=== PATIENT | male | born 1955 ===

== ENCOUNTER 2021-01-26 16:52 | Emergency (ER) | payer OTHER, SELFPAY ==
[2021-01-26 17:39] VITALS: BP 180/81; PULSE 99; RESP 16; TEMP 36.4; O2SAT 99; BMI 37.8
--- NOTE | 2021-01-26 19:09 | ED.DENTAL ---
HPI - Dental/Oral General Chief complaint: Dental/Oral Stated complaint: tooth pain - abscess Time Seen by Provider: 01/26/21 18:50 History of Present Illness HPI Narrative: Patient complains of left-sided upper and lower dental pain, he was started on clindamycin today and said it made him feel like his throat was swelling, this feeling has resolved and he comes here to be recheck, he has no shortness of breath no feeling of swelling in his throat no rash and his only complaint is pain in the teeth but he is nervous to continue the clindamycin Related Data Previous Rx's Medication Instructions Recorded azithromycin [Zithromax Z-David] 250 mg PO DAILY 4 Days #4 tab 01/26/21 Allergies Allergy/AdvReac Type Severity Reaction Status Date / Time Penicillins Allergy Unknown Verified 01/26/21 17:45 Review of Systems Review of Systems: Dental pain and a resolved feeling of throat closing Review of systems there is no dizziness no weakness no feeling faint no fainting no headache no difficulty breathing or swallowing no throat swelling no nausea or vomiting no heart racing no skin rash Yes all other systems are reviewed and are negative [facility] Past Medical History Source: nursing notes reviewed Social History Social History Smoked in Last 30 Days: No Use of substances other than those prescribed or required for medical reasons: No Advance Directives: No Advance Directives Information Provided: Yes Physical Exam Vital Signs: Vital Signs: Last Vital Signs Temp 97.5 F 01/26/21 17:39 Pulse 99 01/26/21 17:39 Resp 16 01/26/21 17:39 BP 180/81 H 01/26/21 17:39 Pulse Ox 99 01/26/21 17:39 Body Mass Index 37.8 General appearance comfortable relax no acute distress exam the pharynx is clear without swelling, there is no impairment of breathing and swallowing, there is no drooling in the voice is normal, no trismus Dental exam there is no obvious fluctuant abscess, there is tender DKA on left lower and upper molars, there is no inflammation of the gums The neck is supple The chest is clear to auscultation bilaterally full symmetric equal breath sounds The heart rate and rhythm regular no murmur Extremities full range of motion x4 Skin no rashes Course Course Course Narrative: Because the patient's perception of throat closing or swelling with clindamycin we switched to Zithromax and observed for 45 minutes after with no better affect On arrival here he had no symptoms he never had any rash she never had any actual swelling and there is no sign of any allergic reaction on arrival or now Discharge Plan Discharge Clinical Impression: Dental caries Patient Disposition: Home, Self-Care Additional Instructions: We never saw any sign of allergic reaction here but as there is a chance you may have had a reaction to clindamycin we changed the antibiotic to Zithromax We kept an eye on you for some time after taking the 1st dose here and there was no sign of any allergic reaction Follow with dentist for your dental issues Return to the ER any time any worse condition or any concerns Prescriptions: New azithromycin [Zithromax Z-David] 250 mg tablet 250 mg PO DAILY 4 Days Qty: 4 RF: 0 Interventions: ED Discharge Assessment Last Done: 01/26/21 19:53 Discharge Date/Time: 01/26/21 19:46
[2021-01-26] MEDS: Azithromycin 500 MG TABLET PO (19:19)
== END 2021-01-26 19:46 | disposition home or self-care (01) ==
PROVIDERS: Emergency Provider Internal Medicine; PCP Hospitalist
DX: K02.9 Dental caries, unspecified (principal); Z79.899 Other long term (current) drug therapy
CPT/HCPCS: 99284

== ENCOUNTER 2021-04-21 11:00 | Outpatient (REF) | payer OTHER, SELFPAY ==
[2021-04-21 11:59] LABS: Blood Urea Nitrogen 13 mg/dL (9-16); Estimated Glomerular Filt Rate > 60
== END 2021-04-21 11:01 | disposition home or self-care (01) ==
LOC: HO.LAB 11:00
PROVIDERS: PCP Hospitalist; Visit Provider Psychiatry & Neurology Neurology
DX: G40.209 Localization-related (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, not intractable, without status epilepticus (principal); Q85.00 Neurofibromatosis, unspecified
CPT/HCPCS: 36415; 82565; 84520

== ENCOUNTER 2021-05-05 14:48 | Outpatient (REF) | payer OTHER, SELFPAY ==
--- NOTE | ~2021-05-05 | MR_ITS ---
EXAMINATION: MR BRAIN WITHOUT AND WITH CONTRAST CLINICAL INFORMATION: Complex partial seizure. Neurofibromatosis. COMPARISON: None available. TECHNIQUE: Multiplanar, multisequence imaging of the brain was performed before and after the intravenous administration of 10 mL of Gadavist. FINDINGS: There is no acute infarction, mass, hemorrhage, or extra-axial collection. No abnormal or unexpected intracranial enhancement is seen. Mild degree of brain parenchymal volume loss is seen at the ventricles and sulci are commensurate. Mild amount of nonspecific T2/FLAIR hyperintensity seen involving the periventricular and deep cerebral white matter. The bilateral hippocampi demonstrate normal size, signal, and morphology and appear symmetric. The temporal lobes demonstrate normal and symmetric signal. There is no martin matter heterotopia. No focal cortical dysplasia is seen. The flow voids of the major intracranial arteries appear intact. The bones and extracranial soft tissues are within normal limits. Several scattered subcutaneous nodules are seen within the scalp, presumably neurofibromas. Low T1 signal is seen within the C3 and C4 vertebral bodies. The remainder of the calvarial and skull base marrow signal appears normal. MR/MR head/brain wo/w con IMPRESSION: No mass, or enhancing lesion, or definite epileptogenic nidus identified. Mild nonspecific T2 hyperintensity seen in the cerebral white matter. No evidence of hippocampal sclerosis. No acute abnormality. Incidentally noted abnormal marrow signal in the C3 and C4 vertebral bodies of uncertain significance.
== END 2021-05-05 14:49 | disposition home or self-care (01) ==
LOC: HO.MRI 14:48
PROVIDERS: PCP Hospitalist; Visit Provider Psychiatry & Neurology Neurology
DX: G40.209 Localization-related (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, not intractable, without status epilepticus (principal); Q85.00 Neurofibromatosis, unspecified
CPT/HCPCS: 70553; A9585

== ENCOUNTER 2021-09-18 10:40 | Outpatient (REF) | payer OTHER, SELFPAY ==
[2021-09-18 11:25] LABS: Estimated Average Glucose 105 mg/dL; Hemoglobin A1c % 5.3 %
[2021-09-18 12:01] LABS: Alanine Aminotransferase 37 U/L (0-40); Albumin Level 4.2 g/dL (3.5-5.0); Alkaline Phosphatase 81 U/L (39-117); Anion Gap 13 (12-20); Aspartate Amino Transferase 38 U/L (5-37); Bilirubin Total 0.8 mg/dL (0.0-1.0); Blood Urea Nitrogen 11 mg/dL (9-16); Calcium 9.1 mg/dL (8.4-10.2); Carbon Dioxide 30 mmol/L (22-29); Chloride 105 mmol/L (96-108); Cholesterol 196 mg/dL; Estimated Glomerular Filt Rate > 60; Glucose Random 109 mg/dL (60-115); HDL Cholesterol 60 mg/dL; LDL Cholesterol Calculated 123 mg/dl; Potassium 4.2 mmol/L (3.3-5.1); Sodium 144 mmol/L (135-145); Total Protein 6.7 g/dL (6.5-8.0); Triglycerides 67 mg/dL
[2021-09-18 14:42] LABS: Creatinine Urine 232.83 mg/dL; Microalbum/Creatinine Ratio Ur 13.3 ug/mg cr
== END 2021-09-18 10:41 | disposition home or self-care (01) ==
LOC: HO.LAB 10:40
PROVIDERS: Visit Provider Hospitalist
DX: I10 Essential (primary) hypertension (principal); E11.8 Type 2 diabetes mellitus with unspecified complications
CPT/HCPCS: 36415; 80053; 80061; 82043; 83036

== ENCOUNTER → 2022-05-29 09:43 | Outpatient (BNVA) | payer OTHER, MEDICARE, MEDICAID, SELFPAY | PROVIDERS: PCP Internal Medicine; Visit Provider Urology | DX: N40.1 Benign prostatic hyperplasia with lower urinary tract symptoms (principal); N13.8 Other obstructive and reflux uropathy; R33.9 Retention of urine, unspecified; R39.12 Poor urinary stream | CPT/HCPCS: 51798 ==

== ENCOUNTER 2022-07-14 14:59 | Outpatient (REF) | payer MEDICARE, SELFPAY ==
--- NOTE | ~2022-07-14 | XR_ITS ---
EXAMINATION: XR ABDOMEN KUB CLINICAL INDICATION: Slow transit constipation COMPARISON: None TECHNIQUE: AP view of the abdomen. FINDINGS: Nonobstructive abdominal bowel gas pattern. Gas is seen within nondilated stomach, small bowel, and colon. No abnormal abdominal calcifications. Moderate volume stool is present. Degree in the right colon and rectum. Degenerative changes of the lumbar spine. XR/XR KUB IMPRESSION: Nonobstructed abdominal bowel gas pattern. Moderate stool burden.
== END 2022-07-14 15:00 | disposition home or self-care (01) ==
LOC: HO.XRAY 14:59
PROVIDERS: PCP Internal Medicine; Visit Provider Internal Medicine
DX: K59.01 Slow transit constipation (principal)
CPT/HCPCS: 74018

== ENCOUNTER → 2022-07-22 13:41 | Outpatient (BNVA) | payer MEDICARE, MEDICAID, SELFPAY | PROVIDERS: PCP Internal Medicine; Visit Provider Urology | DX: N40.1 Benign prostatic hyperplasia with lower urinary tract symptoms (principal); N13.8 Other obstructive and reflux uropathy | CPT/HCPCS: 52000; 99212 ==

== ENCOUNTER 2022-12-09 12:24 | Emergency (ER) | payer OTHER, MEDICAID, SELFPAY ==
[2022-12-09] VITALS (8 sets, daily range): BP systolic 91–140; BP diastolic 46–65; PULSE 66–83; RESP 16; TEMP 36.4–36.5; O2SAT 95–97; BMI 36.7
--- NOTE | ~2022-12-09 | XR_ITS ---
EXAMINATION: LEFT FOOT, LEFT ANKLE CLINICAL INFORMATION: Twisted foot and ankle with pain COMPARISON: None TECHNIQUE: 2 views left ankle, 3 views left foot FINDINGS: There is lateral soft tissue swelling. The ankle mortise appears stable. No fractures or dislocations are noted in the ankle or foot. XR/XR ankle LT 2V IMPRESSION: Lateral soft tissue swelling without fracture.
--- NOTE | ~2022-12-09 | XR_ITS ---
EXAMINATION: LEFT FOOT, LEFT ANKLE CLINICAL INFORMATION: Twisted foot and ankle with pain COMPARISON: None TECHNIQUE: 2 views left ankle, 3 views left foot FINDINGS: There is lateral soft tissue swelling. The ankle mortise appears stable. No fractures or dislocations are noted in the ankle or foot. XR/XR foot LT min 3V IMPRESSION: Lateral soft tissue swelling without fracture.
--- NOTE | 2022-12-09 12:33 | ED.GENADULT ---
HPI - General Adult General Chief complaint: Fall <ELOISA Lewis - Last Filed: 12/09/22 18:49> Stated complaint: Fall while walking, ankle pain per EMS <ELOISA Lewis - Last Filed: 12/09/22 18:49> Time Seen by Provider: 12/09/22 12:33 <ELOISA Lewis - Last Filed: 12/09/22 18:49> Source: patient and EMS <ELOISA Lewis Last Filed: 12/09/22 18:49> Mode of arrival: EMS <ELOISA Lewis Last Filed: 12/09/22 18:49> History of Present Illness HPI narrative: 67-year-old male with a past medical history of ETOH abuse, ADD, BPH, HTN, hematuria, vertigo, presenting to the ED complaining of left ankle pain S/P fall [place] [employer] from standing. Reports episode of vertigo, patient admits he could not get his cane out fast enough to catch himself & fell down twisting ankle. Reports chronic vertigo episodes, unchanged from typical, denies vertigo/ dizziness or lightheadedness at present. Denies head trauma or LOC. Denies taking anticoagulation. Denies CP, SOB, abdominal pain, nausea /vomiting, headache, weakness. <ELOISA Lewis - Last Filed: 12/09/22 18:49> Onset (ago): minute(s) <ELOISA Lewis - Last Filed: 12/09/22 18:49> Related Data Home medications: Home Medications Medication Instructions Recorded Confirmed atorvastatin 20 mg tablet 20 mg PO DAILY 05/29/22 12/09/22 bupropion HCl 150 mg 24 hr tablet, 150 mg PO QAM 05/29/22 12/09/22 extended release clonidine HCl 0.1 mg tablet 0.1 mg PO BID 05/29/22 12/09/22 cyanocobalamin (vitamin B-12) 1,000 mcg PO QAM 05/29/22 12/09/22 1,000 mcg tablet felodipine 10 mg tablet,extended 10 mg PO DAILY 05/29/22 12/09/22 release 24 hr folic acid 1 mg tablet 1 mg PO QAM 05/29/22 12/09/22 furosemide 20 mg tablet 20 mg PO DAILY 05/29/22 12/09/22 lisinopril 10 mg tablet 10 mg PO DAILY 05/29/22 12/09/22 melatonin 5 mg tablet 5 mg PO BEDTIME 05/29/22 12/09/22 ffsqfmrd-yjy-eqano acid 0.4 1 tab PO QAM 05/29/22 12/09/22 mg-lycopene 300 mcg-lutein 250 mcg tablet ([employer]) naltrexone 50 mg tablet 50 mg PO QAM 05/29/22 12/09/22 omeprazole 40 mg capsule,delayed 40 mg PO DAILY 05/29/22 12/09/22 release thiamine HCl (vitamin B1) 100 mg 100 mg PO QAM 05/29/22 12/09/22 tablet trazodone 100 mg tablet 100 mg PO BEDTIME 05/29/22 12/09/22 dextroamphetamine-amphetamine ER 1 cap PO BID 07/21/22 12/09/22 20 mg 24hr capsule,extend release escitalopram oxalate 10 mg tablet 10 mg PO QAM 07/21/22 12/09/22 gabapentin 300 mg capsule 1 cap PO TID 12/09/22 12/09/22 Previous Rx's Medication Instructions Recorded finasteride 5 mg tablet 5 mg PO DAILY 90 days #90 tabs 07/22/22 terazosin 5 mg capsule 5 mg PO BEDTIME 90 days #90 caps 11/06/22 meclizine 25 mg tablet 50 mg PO BID PRN dizziness #20 tabs 12/10/22 <ELOISA Lewis - Last Filed: 12/09/22 18:49> Allergies/adverse reactions: Allergies Allergy/AdvReac Type Severity Reaction Status Date / Time Penicillins Allergy Unknown Verified 07/21/22 15:21 <ELOISA Lewis - Last Filed: 12/09/22 18:49> Review of Systems Review of Systems: Constitutional: No Fever, No Chills, No Fatigue, No Malaise ENT/Mouth: No Hearing loss, No Ear Pain, No sore throat, No Rhinorrhea, No Swallowing Difficulty Eyes: No Eye Pain, No Swelling, No Redness, No Discharge, No Vision Changes Cardiovascular: No Chest Pain, No SOB, No Edema, No Palpitations Respiratory: No Cough, No Dyspnea Gastrointestinal: No Nausea, No Vomiting, No Diarrhea, No Constipation, No Abdominal pain Genitourinary: No Dysuria, No Hematuria, No Urinary Incontinence/retention, No Flank Pain Musculoskeletal: + joint pain, No Myalgias, + Joint Swelling Skin: No Skin Lesions, No rash Neuro: No Weakness, No Numbness, No Paresthesias, No Loss of Consciousness, +Dizziness (resolved), No Headache <ELOISA Lewis - Last Filed: 12/09/22 18:49> Yes all other systems are reviewed and are negative <ELOISA Lewis - Last Filed: 12/09/22 18:49> Constitutional: Constitutional: Reports as per HPI <ELOISA Lewis - Last Filed: 12/09/22 18:49> Neurologic: Denies Abnormal speech present <ELOISA Lewis - Last Filed: 12/09/22 18:49> [facility] Past Medical History Attestation statement: The following information was validated with the patient. <ELOISA Lewis Last Filed: 12/09/22 18:49> Medical History: Medical History AA (alcohol abuse) ADD (attention deficit disorder) BPH (benign prostatic hyperplasia) Colon polyp HTN (hypertension) Microscopic hematuria <ELOISA Lewis - Last Filed: 12/09/22 18:49> Social History Social History: Social History Alcohol intake: former Smoked in Last 30 Days: No Use of substances other than those prescribed or required for medical reasons: No Advance Directives: No Advance Directives Information Provided: Yes <ELOISA Lewis - Last Filed: 12/09/22 18:49> Physical Exam ED Vital Signs: Vital Signs - 24 hr 12/09/22 12:28 12/09/22 14:56 12/09/22 15:22 Temperature 97.6 F Pulse Rate 66 66 72 Respiratory Rate 16 Blood Pressure 112/48 L 112/48 L 111/53 L Pulse Oximetry 96 96 Oxygen Delivery Method Room Air Oxygen Flow Rate 12/09/22 15:26 12/09/22 15:27 12/09/22 16:51 Temperature Pulse Rate 77 81 71 Respiratory Rate 16 Blood Pressure 91/46 L 108/48 L 116/57 L Pulse Oximetry 97 Oxygen Delivery Method Room Air Oxygen Flow Rate 12/09/22 20:05 12/09/22 22:00 12/10/22 00:00 Temperature 97.7 F 98.4 F Pulse Rate 83 74 67 Respiratory Rate 16 16 16 Blood Pressure 121/59 L 140/61 H 128/59 L Pulse Oximetry 97 97 96 Oxygen Delivery Method Room Air Room Air Room Air Oxygen Flow Rate 12/10/22 05:50 12/10/22 07:50 12/10/22 09:15 Temperature 98 F Pulse Rate 58 57 57 Respiratory Rate 17 12 Blood Pressure 138/65 120/51 L 120/51 L Pulse Oximetry 98 97 97 Oxygen Delivery Method Nasal Cannula Room Air Oxygen Flow Rate 2 BMI result Body Mass Index 36.7 <ELOISA Lewis - Last Filed: 12/09/22 18:49> Vital Signs - 24 hr 12/09/22 12:28 12/09/22 14:56 12/09/22 15:22 Temperature 97.6 F Pulse Rate 66 66 72 Respiratory Rate 16 Blood Pressure 112/48 L 112/48 L 111/53 L Pulse Oximetry 96 96 Oxygen Delivery Method Room Air Oxygen Flow Rate 12/09/22 15:26 12/09/22 15:27 12/09/22 16:51 Temperature Pulse Rate 77 81 71 Respiratory Rate 16 Blood Pressure 91/46 L 108/48 L 116/57 L Pulse Oximetry 97 Oxygen Delivery Method Room Air Oxygen Flow Rate 12/09/22 20:05 12/09/22 22:00 12/10/22 00:00 Temperature 97.7 F 98.4 F Pulse Rate 83 74 67 Respiratory Rate 16 16 16 Blood Pressure 121/59 L 140/61 H 128/59 L Pulse Oximetry 97 97 96 Oxygen Delivery Method Room Air Room Air Room Air Oxygen Flow Rate 12/10/22 05:50 12/10/22 07:50 12/10/22 09:15 Temperature 98 F Pulse Rate 58 57 57 Respiratory Rate 17 12 Blood Pressure 138/65 120/51 L 120/51 L Pulse Oximetry 98 97 97 Oxygen Delivery Method Nasal Cannula Room Air Oxygen Flow Rate 2 BMI result Body Mass Index 36.7 <ELOISA Mendieta - Last Filed: 12/10/22 09:49> Const General: cooperative, comfortable, no acute distress and alert <Laney Greene PA - Last Filed: 12/09/22 18:49> Orientation/consciousness: patient oriented x3 <Laney Greene PA - Last Filed: 12/09/22 18:49> Limitations: no limitations <Laney Greene PA - Last Filed: 12/09/22 18:49> HENMT Head: Yes normal to inspection and Yes atraumatic <Lanye Greene PA - Last Filed: 12/09/22 18:49> Ears: hearing grossly normal bilaterally <Laney Greene PA - Last Filed: 12/09/22 18:49> General nose exam: Normal external nose present <Laney Greene PA - Last Filed: 12/09/22 18:49> Face and sinus: Yes normal facial exam <Laney Greene PA - Last Filed: 12/09/22 18:49> Eyes General: appearance normal, both eyes and all related structures <ELOISA Lewis - Last Filed: 12/09/22 18:49> Pupils: Equal, round and reactive pupils present <Laney Greene PA - Last Filed: 12/09/22 18:49> EOM: EOMs intact bilaterally <Laney Greene PA - Last Filed: 12/09/22 18:49> Neck Neck: Yes normal visual inspection and Yes no meningeal signs <Laney Greene PA - Last Filed: 12/09/22 18:49> Resp Effort & Inspection: normal respiratory effort and no respiratory distress <Laney Greene PA - Last Filed: 12/09/22 18:49> Auscultation: clear to auscultation bilaterally <Laney Greene PA - Last Filed: 12/09/22 18:49> Cardio Rate: regular rate <Laney Greene PA - Last Filed: 12/09/22 18:49> Heart sounds: S1 normal heart sound present and S2 normal heart sound present <ELOISA Lewis - Last Filed: 12/09/22 18:49> Peripheral pulses: Peripheral pulses 2+ throughout <Laney Greene PA - Last Filed: 12/09/22 18:49> GI Inspection: Yes normal to inspection <ELOISA Lewis - Last Filed: 12/09/22 18:49> Palpation (GI): Soft to palpation, nontender, no guarding and not rigid <ELOISA Lewis - Last Filed: 12/09/22 18:49> Skin Rashes: no rashes <ELOISA Lewis - Last Filed: 12/09/22 18:49> Wounds: no wounds <ELOISA Lewis - Last Filed: 12/09/22 18:49> Neuro General: patient oriented x3, tone normal, moves all extremities, no meningeal signs, no focal motor deficits and CN's II-XI intact bilaterally <ELOISA Lewis - Last Filed: 12/09/22 18:49> Cranial nerves: Yes CN's II-XII intact bilaterally and Yes Equal, round and reactive pupils present <ELOISA Lewis - Last Filed: 12/09/22 18:49> Cognition (Neuro): normal cognition <ELOISA Lewis - Last Filed: 12/09/22 18:49> Speech: No Abnormal speech present <ELOISA Lewis - Last Filed: 12/09/22 18:49> Motor exam (neuro): 5/5 motor strength present throughout <ELOISA Lewis - Last Filed: 12/09/22 18:49> Extrem Other: Left knee/ tib fib and calf nontender Mild left ankle swelling to lateral aspect. Tender to palpation. ROM intact. NV intact <ELOISA Lewis - Last Filed: 12/09/22 18:49> Course Course Course Narrative: XR foot LT min 3V IMPRESSION: Lateral soft tissue swelling without fracture. ? XR ankle LT 2V IMPRESSION: Lateral soft tissue swelling without fracture. >> patient placed in air cast, supplied with crutches > Patient unable to ambulate safely with crutches and or his cane. Agreeable to PT/case management > will obtain labs, UA, and COVID/influenza testing - physical therapy evaluated patient and recommended short-term rehab. -labs reassuring. COVID-19/influenza negative. Patient placed in physician observation as needs more time to be evaluated by Case Management -[id number]--ED care transferred to PA Aimee pending CM placement <ELOISA Lewis - Last Filed: 12/09/22 18:49> Reevaluation(s) Reevaluation #1: Patient seen and evaluated by Physical therapy this morning. He was deemed stable to be discharged home with a walker. Patient agrees with plan. Will provide meclizine for vertigo. Patient stable for discharge home with outpatient follow-up. <ELOISA Mendieta - Last Filed: 12/10/22 09:49> Time: 09:46 <ELOISA Mendieta - Last Filed: 12/10/22 09:49> Medications Administered Generic Name Dose Route Start Last Admin Trade Name Freq PRN Reason Stop Dose Admin Amlodipine Besylate 10 mg 12/10/22 09:00 12/10/22 08:29 Amlodipine Besylate 10 Mg Tablet PO 10 mg DAILY MIGUEL Administration Amphetamine/Dextroamphetamine 20 mg 12/10/22 08:00 12/10/22 08:37 Dextroamphetamine/Amphetamine Xr 10 Mg Cap.Er.24h PO 20 mg BID@0800,1800 MIGUEL Administration Atorvastatin Calcium 20 mg 12/10/22 09:00 12/10/22 08:30 Atorvastatin Calcium 20 Mg Tablet PO 20 mg DAILY MIGUEL Administration Bupropion HCl 150 mg 12/10/22 09:00 12/10/22 08:29 Bupropion Hcl Xl 150 Mg Tab.Er.24h PO 150 mg DAILY MIGUEL Administration Clonidine HCl 0.1 mg 12/09/22 23:15 12/10/22 08:29 Clonidine Hcl 0.1 Mg Tablet PO 0.1 mg BID MIGUEL Administration Protocol Cyanocobalamin 1,000 mcg 12/10/22 09:00 12/10/22 08:29 Cyanocobalamin (Vitamin B-12) 1,000 Mcg Tablet PO 1,000 mcg DAILY MIGUEL Administration Doxazosin Mesylate 4 mg 12/09/22 23:15 12/09/22 23:54 Doxazosin Mesylate 2 Mg Tablet PO 4 mg BEDTIME MIGUEL Administration Escitalopram Oxalate 10 mg 12/10/22 09:00 12/10/22 08:29 Escitalopram Oxalate 10 Mg Tablet PO 10 mg DAILY MIGUEL Administration Finasteride 5 mg 12/10/22 09:00 12/10/22 08:37 Finasteride 5 Mg Tablet PO 5 mg DAILY MIGUEL Administration Folic Acid 1 mg 12/09/22 23:15 12/10/22 08:29 Folic Acid 1 Mg Tablet PO 1 mg DAILY MIGUEL Administration Furosemide 20 mg 12/10/22 09:00 12/10/22 08:29 Furosemide 20 Mg Tablet PO 20 mg DAILY MIGUEL Administration Protocol Gabapentin 300 mg 12/09/22 23:15 12/10/22 08:29 Gabapentin 300 Mg Capsule PO 300 mg TID MIGUEL Administration Lisinopril 10 mg 12/10/22 09:00 12/10/22 08:29 Lisinopril 10 Mg Tablet PO 10 mg DAILY MIGUEL Administration Protocol Melatonin 6 mg 12/09/22 23:15 12/09/22 23:54 Melatonin 3 Mg Tablet PO 6 mg BEDTIME MIGUEL Administration Multivitamins/Vitamin C 1 tab 12/10/22 09:00 12/10/22 08:29 Multivitamin Tablet PO 1 tab DAILY MIGUEL Administration Naltrexone HCl 50 mg 12/10/22 09:00 12/10/22 08:37 Naltrexone Hcl 50 Mg Tablet PO 50 mg DAILY MIGUEL Administration Omeprazole 40 mg 12/10/22 09:00 12/10/22 08:29 Omeprazole 40 Mg Capsule.Dr PO 40 mg DAILY MIGUEL Administration Thiamine HCl 100 mg 12/10/22 09:00 12/10/22 08:29 Thiamine Hcl 100 Mg Tablet PO 100 mg DAILY MIGUEL Administration Trazodone HCl 100 mg 12/09/22 23:15 12/09/22 23:55 Trazodone Hcl 100 Mg Tablet PO 100 mg BEDTIME MIGUEL Administration Discontinued Medications Generic Name Dose Route Start Last Admin Trade Name Freq PRN Reason Stop Dose Admin Ibuprofen 600 mg 12/10/22 02:39 12/10/22 03:10 Ibuprofen 600 Mg Tablet PO 12/10/22 02:40 600 mg ONCE ONE Administration Ibuprofen 600 mg 12/10/22 08:59 12/10/22 09:12 Ibuprofen 600 Mg Tablet PO 12/10/22 09:00 600 mg ONCE ONE Administration <ELOISA Lewis - Last Filed: 12/09/22 18:49> Medications Administered Generic Name Dose Route Start Last Admin Trade Name Freq PRN Reason Stop Dose Admin Amlodipine Besylate 10 mg 12/10/22 09:00 12/10/22 08:29 Amlodipine Besylate 10 Mg Tablet PO 10 mg DAILY MIGUEL Administration Amphetamine/Dextroamphetamine 20 mg 12/10/22 08:00 12/10/22 08:37 Dextroamphetamine/Amphetamine Xr 10 Mg Cap.Er.24h PO 20 mg BID@0800,1800 MIGUEL Administration Atorvastatin Calcium 20 mg 12/10/22 09:00 12/10/22 08:30 Atorvastatin Calcium 20 Mg Tablet PO 20 mg DAILY MIUGEL Administration Bupropion HCl 150 mg 12/10/22 09:00 12/10/22 08:29 Bupropion Hcl Xl 150 Mg Tab.Er.24h PO 150 mg DAILY MIGUEL Administration Clonidine HCl 0.1 mg 12/09/22 23:15 12/10/22 08:29 Clonidine Hcl 0.1 Mg Tablet PO 0.1 mg BID MIGUEL Administration Protocol Cyanocobalamin 1,000 mcg 12/10/22 09:00 12/10/22 08:29 Cyanocobalamin (Vitamin B-12) 1,000 Mcg Tablet PO 1,000 mcg DAILY MIGUEL Administration Doxazosin Mesylate 4 mg 12/09/22 23:15 12/09/22 23:54 Doxazosin Mesylate 2 Mg Tablet PO 4 mg BEDTIME MIGUEL Administration Escitalopram Oxalate 10 mg 12/10/22 09:00 12/10/22 08:29 Escitalopram Oxalate 10 Mg Tablet PO 10 mg DAILY MIGUEL Administration Finasteride 5 mg 12/10/22 09:00 12/10/22 08:37 Finasteride 5 Mg Tablet PO 5 mg DAILY MIGUEL Administration Folic Acid 1 mg 12/09/22 23:15 12/10/22 08:29 Folic Acid 1 Mg Tablet PO 1 mg DAILY MIGUEL Administration Furosemide 20 mg 12/10/22 09:00 12/10/22 08:29 Furosemide 20 Mg Tablet PO 20 mg DAILY MIGUEL Administration Protocol Gabapentin 300 mg 12/09/22 23:15 12/10/22 08:29 Gabapentin 300 Mg Capsule PO 300 mg TID MIGUEL Administration Lisinopril 10 mg 12/10/22 09:00 12/10/22 08:29 Lisinopril 10 Mg Tablet PO 10 mg DAILY MIGUEL Administration Protocol Melatonin 6 mg 12/09/22 23:15 12/09/22 23:54 Melatonin 3 Mg Tablet PO 6 mg BEDTIME MIGUEL Administration Multivitamins/Vitamin C 1 tab 12/10/22 09:00 12/10/22 08:29 Multivitamin Tablet PO 1 tab DAILY MIGUEL Administration Naltrexone HCl 50 mg 12/10/22 09:00 12/10/22 08:37 Naltrexone Hcl 50 Mg Tablet PO 50 mg DAILY MIGUEL Administration Omeprazole 40 mg 12/10/22 09:00 12/10/22 08:29 Omeprazole 40 Mg Capsule.Dr PO 40 mg DAILY MIGUEL Administration Thiamine HCl 100 mg 12/10/22 09:00 12/10/22 08:29 Thiamine Hcl 100 Mg Tablet PO 100 mg DAILY MIGUEL Administration Trazodone HCl 100 mg 12/09/22 23:15 12/09/22 23:55 Trazodone Hcl 100 Mg Tablet PO 100 mg BEDTIME MIGUEL Administration Discontinued Medications Generic Name Dose Route Start Last Admin Trade Name Aayush PRN Reason Stop Dose Admin Ibuprofen 600 mg 12/10/22 02:39 12/10/22 03:10 Ibuprofen 600 Mg Tablet PO 12/10/22 02:40 600 mg ONCE ONE Administration Ibuprofen 600 mg 12/10/22 08:59 12/10/22 09:12 Ibuprofen 600 Mg Tablet PO 12/10/22 09:00 600 mg ONCE ONE Administration <ELOISA Mendieta - Last Filed: 12/10/22 09:49> Medical Decision Making Medical Decision Making MDM Narrative: 67-year-old male with a past medical history of ETOH abuse, ADD, BPH, HTN, hematuria, vertigo, presenting to the ED complaining of left ankle pain [place] fall [place] [employer] from standing. on exam vital signs stable, NAD, nontoxic appearing, physical exam as above, no focal neuro deficits, left ankle swelling and tenderness noted. Concern for fracture versus sprain. Concern for episode of vertigo which has resolved. Low suspicion for ACS/PE or ICH/CVA/TIA plan: X-rays, reassess Please refer to course for remaining clinical decision making, interpretation of labs/imaging results, and discussions with consultants and/or family members. <ELOISA Lewis - Last Filed: 12/09/22 18:49> Differential Diagnosis Differential Diagnoses: The differential diagnosis associated with the presentation includes <ELOISA Lewis - Last Filed: 12/09/22 18:49> Lab Data Result Diagrams: 12/09/22 15:21 12/09/22 15:21 <ELOISA Lewis - Last Filed: 12/09/22 18:49> Labs: Lab Results 01/25/23 01/25/23 01/25/23 Range/Units 15:21 15:21 15:21 WBC 9.7 (4.8-10.8) X10*3/uL RBC 5.37 (4.60-5.80) X10*6/uL Hgb 15.9 (14.0-18.0) g/dl Hct 46.8 (42.0-52.0) % MCV 87.2 (80.0-98.0) fL MCH 29.6 (27.0-33.0) pg MCHC 34.0 (31.0-36.0) g/dl RDW 13.3 (11.0-16.0) % Plt Count 245 (160-400) X10*3/uL MPV 9.5 (9.4-12.4) fL Immature Gran % (Auto) 0.3 (0.0-0.4) % Neut % (Auto) 70.5 (45-73) % Lymph % (Auto) 17.5 L (20-40) % [place] % (Auto) 7.7 (2-11) % Eos % (Auto) 3.4 (0-4) % Baso % (Auto) 0.6 (0-2) % Lymph # (Auto) 1.7 (1.2-4.9) X10*3/uL [place] # (Auto) 0.7 (0.1-1.2) X10*3/uL Eos # (Auto) 0.3 (0.0-0.4) X10*3/uL Baso # (Auto) 0.1 (0.0-0.2) X10*3/uL Abs Immat Gran (auto) 0.03 (0.00-0.03) X10*3/uL Absolute Neuts (auto) 6.8 (2.0-8.3) x10*3/uL Absolute Nucleated RBC 0.000 (0.0-0.012) X10*3/uL Nucleated RBC % (auto) 0.0 (0.0-0.2) /100WBC Sodium 138 (135-145) mmol/L Potassium 4.6 (3.3-5.1) mmol/L Chloride 105 (96-108) mmol/L Carbon Dioxide 21 L (22-29) mmol/L Anion Gap 17 (12-20) BUN 13 (9-16) mg/dL Creatinine 1.19 (0.5-1.4) mg/dL Estim Creat Clear Calc 65.0 Estimated GFR > 60 Random Glucose 100 (60-115) mg/dL Calcium 9.2 (8.4-10.2) mg/dL Magnesium 2.1 (1.6-2.6) mg/dL Total Bilirubin 1.3 H (0.0-1.0) mg/dL Direct Bilirubin 0.4 (0.0-0.5) mg/dL AST 20 (5-37) U/L ALT 14 (0-40) U/L Alkaline Phosphatase 92 (39-117) U/L Troponin I High Sens < 3.5 (<3.5-35.0) ng/L B-Natriuretic Peptide (<100) pg/mL Total Protein 7.1 (6.5-8.0) g/dL Albumin 4.5 (3.5-5.0) g/dL Urine Color Urine Appearance Urine pH (5.0-9.0) Ur Specific [place] (1.005-1.025) Urine Protein (Neg-Trace) mg/dL Urine Glucose (UA) (Negative) mg/dL Urine Ketones (Negative) mg/dL Urine Blood (Negative) Urine Nitrite (Negative) Ur Leukocyte Esterase (Negative) Urine RBC (0-2) /HPF Urine WBC (0-5) /HPF Ur Squamous Epith Cells (0-2) /HPF Urine Bacteria (None Seen) Hyaline Casts (0-2) /LPF COVID-19 ([facility]) (Negative) COVID-19 Clin Com Influenza Type A (GLAD[facility]) (Negative) Influenza Type B ([facility]AD[facility]) (Negative) Influenza A & B Note 12/09/22 12/09/22 12/09/22 Range/Units 15:21 15:21 15:21 WBC (4.8-10.8) X10*3/uL RBC (4.60-5.80) X10*6/uL Hgb (14.0-18.0) g/dl Hct (42.0-52.0) % MCV (80.0-98.0) fL MCH (27.0-33.0) pg MCHC (31.0-36.0) g/dl RDW (11.0-16.0) % Plt Count (160-400) X10*3/uL MPV (9.4-12.4) fL Immature Gran % (Auto) (0.0-0.4) % Neut % (Auto) (45-73) % Lymph % (Auto) (20-40) % [place] % (Auto) (2-11) % Eos % (Auto) (0-4) % Baso % (Auto) (0-2) % Lymph # (Auto) (1.2-4.9) X10*3/uL [place] # (Auto) (0.1-1.2) X10*3/uL Eos # (Auto) (0.0-0.4) X10*3/uL Baso # (Auto) (0.0-0.2) X10*3/uL Abs Immat Gran (auto) (0.00-0.03) X10*3/uL Absolute Neuts (auto) (2.0-8.3) x10*3/uL Absolute Nucleated RBC (0.0-0.012) X10*3/uL Nucleated RBC % (auto) (0.0-0.2) /100WBC Sodium (135-145) mmol/L Potassium (3.3-5.1) mmol/L Chloride (96-108) mmol/L Carbon Dioxide (22-29) mmol/L Anion Gap (12-20) BUN (9-16) mg/dL Creatinine (0.5-1.4) mg/dL Estim Creat Clear Calc Estimated GFR Random Glucose (60-115) mg/dL Calcium (8.4-10.2) mg/dL Magnesium (1.6-2.6) mg/dL Total Bilirubin (0.0-1.0) mg/dL Direct Bilirubin (0.0-0.5) mg/dL AST (5-37) U/L ALT (0-40) U/L Alkaline Phosphatase (39-117) U/L Troponin I High Sens (<3.5-35.0) ng/L B-Natriuretic Peptide 54 (<100) pg/mL Total Protein (6.5-8.0) g/dL Albumin (3.5-5.0) g/dL Urine Color Urine Appearance Urine pH (5.0-9.0) Ur Specific [place] (1.005-1.025) Urine Protein (Neg-Trace) mg/dL Urine Glucose (UA) (Negative) mg/dL Urine Ketones (Negative) mg/dL Urine Blood (Negative) Urine Nitrite (Negative) Ur Leukocyte Esterase (Negative) Urine RBC (0-2) /HPF Urine WBC (0-5) /HPF Ur Squamous Epith Cells (0-2) /HPF Urine Bacteria (None Seen) Hyaline Casts (0-2) /LPF COVID-19 ([facility]) Negative (Negative) COVID-19 Clin Com See Note Influenza Type A ([facility]) Negative (Negative) Influenza Type B ([facility]) Negative (Negative) Influenza A & B Note See Note 12/09/22 Range/Units 15:21 WBC (4.8-10.8) X10*3/uL RBC (4.60-5.80) X10*6/uL Hgb (14.0-18.0) g/dl Hct (42.0-52.0) % MCV (80.0-98.0) fL MCH (27.0-33.0) pg MCHC (31.0-36.0) g/dl RDW (11.0-16.0) % Plt Count (160-400) X10*3/uL MPV (9.4-12.4) fL Immature Gran % (Auto) (0.0-0.4) % Neut % (Auto) (45-73) % Lymph % (Auto) (20-40) % [place] % (Auto) (2-11) % Eos % (Auto) (0-4) % Baso % (Auto) (0-2) % Lymph # (Auto) (1.2-4.9) X10*3/uL [place] # (Auto) (0.1-1.2) X10*3/uL Eos # (Auto) (0.0-0.4) X10*3/uL Baso # (Auto) (0.0-0.2) X10*3/uL Abs Immat Gran (auto) (0.00-0.03) X10*3/uL Absolute Neuts (auto) (2.0-8.3) x10*3/uL Absolute Nucleated RBC (0.0-0.012) X10*3/uL Nucleated RBC % (auto) (0.0-0.2) /100WBC Sodium (135-145) mmol/L Potassium (3.3-5.1) mmol/L Chloride (96-108) mmol/L Carbon Dioxide (22-29) mmol/L Anion Gap (12-20) BUN (9-16) mg/dL Creatinine (0.5-1.4) mg/dL Estim Creat Clear Calc Estimated GFR Random Glucose (60-115) mg/dL Calcium (8.4-10.2) mg/dL Magnesium (1.6-2.6) mg/dL Total Bilirubin (0.0-1.0) mg/dL Direct Bilirubin (0.0-0.5) mg/dL AST (5-37) U/L ALT (0-40) U/L Alkaline Phosphatase (39-117) U/L Troponin I High Sens (<3.5-35.0) ng/L B-Natriuretic Peptide (<100) pg/mL Total Protein (6.5-8.0) g/dL Albumin (3.5-5.0) g/dL Urine Color Yellow Urine Appearance Clear Urine pH 5.5 (5.0-9.0) Ur Specific [place] 1.010 (1.005-1.025) Urine Protein Negative (Neg-Trace) mg/dL Urine Glucose (UA) Negative (Negative) mg/dL Urine Ketones Negative (Negative) mg/dL Urine Blood Negative (Negative) Urine Nitrite Negative (Negative) Ur Leukocyte Esterase Trace H (Negative) Urine RBC 0-2 (0-2) /HPF Urine WBC 0-5 (0-5) /HPF Ur Squamous Epith Cells 0-2 (0-2) /HPF Urine Bacteria None Seen (None Seen) Hyaline Casts 0-2 (0-2) /LPF COVID-19 ([facility]) (Negative) COVID-19 Clin Com Influenza Type A (GLADYS) (Negative) Influenza Type B (GLADYS) (Negative) Influenza A & B Note <ELOISA Lewis - Last Filed: 12/09/22 18:49> Lab Results 12/09/22 12/09/22 12/09/22 Range/Units 15:21 15:21 15:21 WBC 9.7 (4.8-10.8) X10*3/uL RBC 5.37 (4.60-5.80) X10*6/uL Hgb 15.9 (14.0-18.0) g/dl Hct 46.8 (42.0-52.0) % MCV 87.2 (80.0-98.0) fL MCH 29.6 (27.0-33.0) pg MCHC 34.0 (31.0-36.0) g/dl RDW 13.3 (11.0-16.0) % Plt Count 245 (160-400) X10*3/uL MPV 9.5 (9.4-12.4) fL Immature Gran % (Auto) 0.3 (0.0-0.4) % Neut % (Auto) 70.5 (45-73) % Lymph % (Auto) 17.5 L (20-40) % [place] % (Auto) 7.7 (2-11) % Eos % (Auto) 3.4 (0-4) % Baso % (Auto) 0.6 (0-2) % Lymph # (Auto) 1.7 (1.2-4.9) X10*3/uL [place] # (Auto) 0.7 (0.1-1.2) X10*3/uL Eos # (Auto) 0.3 (0.0-0.4) X10*3/uL Baso # (Auto) 0.1 (0.0-0.2) X10*3/uL Abs Immat Gran (auto) 0.03 (0.00-0.03) X10*3/uL Absolute Neuts (auto) 6.8 (2.0-8.3) x10*3/uL Absolute Nucleated RBC 0.000 (0.0-0.012) X10*3/uL Nucleated RBC % (auto) 0.0 (0.0-0.2) /100WBC Sodium 138 (135-145) mmol/L Potassium 4.6 (3.3-5.1) mmol/L Chloride 105 (96-108) mmol/L Carbon Dioxide 21 L (22-29) mmol/L Anion Gap 17 (12-20) BUN 13 (9-16) mg/dL Creatinine 1.19 (0.5-1.4) mg/dL Estim Creat Clear Calc 65.0 Estimated GFR > 60 Random Glucose 100 (60-115) mg/dL Calcium 9.2 (8.4-10.2) mg/dL Magnesium 2.1 (1.6-2.6) mg/dL Total Bilirubin 1.3 H (0.0-1.0) mg/dL Direct Bilirubin 0.4 (0.0-0.5) mg/dL AST 20 (5-37) U/L ALT 14 (0-40) U/L Alkaline Phosphatase 92 (39-117) U/L Troponin I High Sens < 3.5 (<3.5-35.0) ng/L B-Natriuretic Peptide (<100) pg/mL Total Protein 7.1 (6.5-8.0) g/dL Albumin 4.5 (3.5-5.0) g/dL Urine Color Urine Appearance Urine pH (5.0-9.0) Ur Specific [place] (1.005-1.025) Urine Protein (Neg-Trace) mg/dL Urine Glucose (UA) (Negative) mg/dL Urine Ketones (Negative) mg/dL Urine Blood (Negative) Urine Nitrite (Negative) Ur Leukocyte Esterase (Negative) Urine RBC (0-2) /HPF Urine WBC (0-5) /HPF Ur Squamous Epith Cells (0-2) /HPF Urine Bacteria (None Seen) Hyaline Casts (0-2) /LPF COVID-19 (SRI) (Negative) COVID-19 Clin Com Influenza Type A (GLADYS) (Negative) Influenza Type B (GLADYS) (Negative) Influenza A & B Note 12/09/22 12/09/22 12/09/22 Range/Units 15:21 15:21 15:21 WBC (4.8-10.8) X10*3/uL RBC (4.60-5.80) X10*6/uL Hgb (14.0-18.0) g/dl Hct (42.0-52.0) % MCV (80.0-98.0) fL MCH (27.0-33.0) pg MCHC (31.0-36.0) g/dl RDW (11.0-16.0) % Plt Count (160-400) X10*3/uL MPV (9.4-12.4) fL Immature Gran % (Auto) (0.0-0.4) % Neut % (Auto) (45-73) % Lymph % (Auto) (20-40) % [place] % (Auto) (2-11) % Eos % (Auto) (0-4) % Baso % (Auto) (0-2) % Lymph # (Auto) (1.2-4.9) X10*3/uL [place] # (Auto) (0.1-1.2) X10*3/uL Eos # (Auto) (0.0-0.4) X10*3/uL Baso # (Auto) (0.0-0.2) X10*3/uL Abs Immat Gran (auto) (0.00-0.03) X10*3/uL Absolute Neuts (auto) (2.0-8.3) x10*3/uL Absolute Nucleated RBC (0.0-0.012) X10*3/uL Nucleated RBC % (auto) (0.0-0.2) /100WBC Sodium (135-145) mmol/L Potassium (3.3-5.1) mmol/L Chloride (96-108) mmol/L Carbon Dioxide (22-29) mmol/L Anion Gap (12-20) BUN (9-16) mg/dL Creatinine (0.5-1.4) mg/dL Estim Creat Clear Calc Estimated GFR Random Glucose (60-115) mg/dL Calcium (8.4-10.2) mg/dL Magnesium (1.6-2.6) mg/dL Total Bilirubin (0.0-1.0) mg/dL Direct Bilirubin (0.0-0.5) mg/dL AST (5-37) U/L ALT (0-40) U/L Alkaline Phosphatase (39-117) U/L Troponin I High Sens (<3.5-35.0) ng/L B-Natriuretic Peptide 54 (<100) pg/mL Total Protein (6.5-8.0) g/dL Albumin (3.5-5.0) g/dL Urine Color Urine Appearance Urine pH (5.0-9.0) Ur Specific [place] (1.005-1.025) Urine Protein (Neg-Trace) mg/dL Urine Glucose (UA) (Negative) mg/dL Urine Ketones (Negative) mg/dL Urine Blood (Negative) Urine Nitrite (Negative) Ur Leukocyte Esterase (Negative) Urine RBC (0-2) /HPF Urine WBC (0-5) /HPF Ur Squamous Epith Cells (0-2) /HPF Urine Bacteria (None Seen) Hyaline Casts (0-2) /LPF COVID-19 (SRI) Negative (Negative) COVID-19 Clin Com See Note Influenza Type A (GLADYS) Negative (Negative) Influenza Type B (GLADYS) Negative (Negative) Influenza A & B Note See Note 12/09/22 Range/Units 15:21 WBC (4.8-10.8) X10*3/uL RBC (4.60-5.80) X10*6/uL Hgb (14.0-18.0) g/dl Hct (42.0-52.0) % MCV (80.0-98.0) fL MCH (27.0-33.0) pg MCHC (31.0-36.0) g/dl RDW (11.0-16.0) % Plt Count (160-400) X10*3/uL MPV (9.4-12.4) fL Immature Gran % (Auto) (0.0-0.4) % Neut % (Auto) (45-73) % Lymph % (Auto) (20-40) % [place] % (Auto) (2-11) % Eos % (Auto) (0-4) % Baso % (Auto) (0-2) % Lymph # (Auto) (1.2-4.9) X10*3/uL [place] # (Auto) (0.1-1.2) X10*3/uL Eos # (Auto) (0.0-0.4) X10*3/uL Baso # (Auto) (0.0-0.2) X10*3/uL Abs Immat Gran (auto) (0.00-0.03) X10*3/uL Absolute Neuts (auto) (2.0-8.3) x10*3/uL Absolute Nucleated RBC (0.0-0.012) X10*3/uL Nucleated RBC % (auto) (0.0-0.2) /100WBC Sodium (135-145) mmol/L Potassium (3.3-5.1) mmol/L Chloride (96-108) mmol/L Carbon Dioxide (22-29) mmol/L Anion Gap (12-20) BUN (9-16) mg/dL Creatinine (0.5-1.4) mg/dL Estim Creat Clear Calc Estimated GFR Random Glucose (60-115) mg/dL Calcium (8.4-10.2) mg/dL Magnesium (1.6-2.6) mg/dL Total Bilirubin (0.0-1.0) mg/dL Direct Bilirubin (0.0-0.5) mg/dL AST (5-37) U/L ALT (0-40) U/L Alkaline Phosphatase (39-117) U/L Troponin I High Sens (<3.5-35.0) ng/L B-Natriuretic Peptide (<100) pg/mL Total Protein (6.5-8.0) g/dL Albumin (3.5-5.0) g/dL Urine Color Yellow Urine Appearance Clear Urine pH 5.5 (5.0-9.0) Ur Specific [place] 1.010 (1.005-1.025) Urine Protein Negative (Neg-Trace) mg/dL Urine Glucose (UA) Negative (Negative) mg/dL Urine Ketones Negative (Negative) mg/dL Urine Blood Negative (Negative) Urine Nitrite Negative (Negative) Ur Leukocyte Esterase Trace H (Negative) Urine RBC 0-2 (0-2) /HPF Urine WBC 0-5 (0-5) /HPF Ur Squamous Epith Cells 0-2 (0-2) /HPF Urine Bacteria None Seen (None Seen) Hyaline Casts 0-2 (0-2) /LPF COVID-19 (SRI) (Negative) COVID-19 Clin Com Influenza Type A (GLADYS) (Negative) Influenza Type B (GLADYS) (Negative) Influenza A & B Note <ELOISA Mendieta - Last Filed: 12/10/22 09:49> Independent Interpretation I performed an independent interpretation of an: EKG ( my interpretation normal sinus rhythm at a rate of 61. QTC 418. No STEMI. Nonischemic.) <ELOISA Lewis - Last Filed: 12/09/22 18:49> Radiology Impression Discussion of test interpretation with radiology: I have reviewed the radiologist's reading. <ELOISA Lewis - Last Filed: 12/09/22 18:49> External Record Review External record reviewed: Office record, Outpatient record and Prior outpatient labs <ELOISA Lewis Last Filed: 12/09/22 18:49> Prescription Management I considered prescription management with: Pain Medication <ELOISA Lewis Last Filed: 12/09/22 18:49> Chronic Conditions Patient?s care impacted by: Hypertension <ELOISA Lewis Last Filed: 12/09/22 18:49> Social Determinants Patient?s care significantly limited by Social Determinants of Health including: Alcoholism and drug addiction in family <ELOISA Lewis Last Filed: 12/09/22 18:49> Discharge Plan Discharge Clinical Impression: Ankle sprain, Vertigo <ELOISA Lewis Last Filed: 12/09/22 18:49> Patient Disposition: Home, Self-Care <ELOISA Lewis - Last Filed: 12/09/22 18:49> Instructions: Ankle Sprain (ED), Vertigo (ED) <ELOISA Lewis - Last Filed: 12/09/22 18:49> Additional Instructions: Your x-ray today was showed only soft tissue swelling, no fractures. Rest your ankle and elevate your foot when possible. Recommend JD wrap for support and compression. Use ice several times per day for the next 48 hours. You may bear weight as tolerated. Use provided walker for stability. Take Motrin and/or Tylenol as needed for pain. Follow up with your doctor as needed. <ELOISA Lewis - Last Filed: 12/09/22 18:49> Prescriptions: New meclizine 25 mg tablet 50 mg PO BID PRN (Reason: dizziness) Qty: 20 0RF No Action terazosin 5 mg capsule 5 mg PO BEDTIME 90 Days Qty: 90 2RF gabapentin 300 mg capsule 1 cap PO TID melatonin 5 mg tablet 5 mg PO BEDTIME Cerovite Senior 0.4 mg-300 mcg- 250 mcg tablet 1 tab PO QAM bupropion HCl 150 mg tablet extended release 24 hr 150 mg PO QAM furosemide 20 mg tablet 20 mg PO DAILY folic acid 1 mg tablet 1 mg PO QAM felodipine 10 mg tablet extended release 24 hr 10 mg PO DAILY lisinopril 10 mg tablet 10 mg PO DAILY trazodone 100 mg tablet 100 mg PO BEDTIME omeprazole 40 mg capsule,delayed release(DR/EC) 40 mg PO DAILY thiamine HCl (vitamin B1) 100 mg tablet 100 mg PO QAM cyanocobalamin (vitamin B-12) 1,000 mcg tablet 1,000 mcg PO QAM naltrexone 50 mg tablet 50 mg PO QAM atorvastatin 20 mg tablet 20 mg PO DAILY clonidine HCl 0.1 mg tablet 0.1 mg PO BID dextroamphetamine-amphetamine 20 mg capsule,extended release 24hr 1 cap PO BID escitalopram oxalate 10 mg tablet 10 mg PO QAM finasteride 5 mg tablet 5 mg PO DAILY 90 Days Qty: 90 1RF <ELOISA Lewis - Last Filed: 12/09/22 18:49> Referrals: Brittany Saldana MD [Primary Care Provider] - (dizziness, fall, ankle sprain) <ELOISA Lewis - Last Filed: 12/09/22 18:49>
--- NOTE | 2022-12-09 13:59 | ECG_ITS ---
Test Reason : DIZZINESS Blood Pressure : / mmHG Vent. Rate : 061 BPM Atrial Rate : 061 BPM P-R Int : 188 ms QRS Dur : 100 ms QT Int : 416 ms P-R-T Axes : 030 -08 016 degrees QTc Int : 418 ms Normal sinus rhythm Normal ECG When compared with ECG of 01-DEC-2019 15:39, No significant change was found Referred By: Laney Greene Electronically Signed By:LAUREN ZUNIGA
--- NOTE | 2022-12-09 14:39 | PC.NURSE ---
patient unable to ambulate safely w/ walker or cane. patient agreeable to case management and PT eval
--- NOTE | 2022-12-09 15:06 | PC.NURSE ---
report received from CORTES Kolb. pt resting comfortably on stretcher at this time. Pt providing us with urine at this time and will be getting blood work shortly after
[2022-12-09 15:27] LABS: MANUAL DIFF FLAG NO
[2022-12-09 15:28] LABS: Basophils Absolute Auto 0.1 X10*3/uL (0.0-0.2); Basophils Percent Auto 0.6 % (0-2); Eosinophils Absolute Auto 0.3 X10*3/uL (0.0-0.4); Eosinophils Percent Auto 3.4 % (0-4); Hematocrit 46.8 % (42.0-52.0); Hemoglobin 15.9 g/dl (14.0-18.0); Imm Gran Abs Auto 0.03 X10*3/uL (0.00-0.03); Imm Gran Pct Auto 0.3 % (0.0-0.4); Lymphocytes Absolute Auto 1.7 X10*3/uL (1.2-4.9); Lymphocytes Percent Auto 17.5 % (20-40); Mean Corpuscular Hemoglobin 29.6 pg (27.0-33.0); Mean Corpuscular Volume 87.2 fL (80.0-98.0); Mean Platelet Volume 9.5 fL (9.4-12.4); Monocytes Absolute Auto 0.7 X10*3/uL (0.1-1.2); Monocytes Percent Auto 7.7 % (2-11); Neutrophils Absolute Auto 6.8 x10*3/uL (2.0-8.3); Neutrophils Percent Auto 70.5 % (45-73); Platelet Count 245 X10*3/uL (160-400); Red Blood Count 5.37 X10*6/uL (4.60-5.80); Red Cell Distribution Width 13.3 % (11.0-16.0); White Blood Count 9.7 X10*3/uL (4.8-10.8)
[2022-12-09 15:29] LABS: Appearance Urine Clear; Color Urine Yellow; Glucose Urine UA Negative (Negative); Leukocyte Esterase Urine Trace (Negative); Nitrite Urine Negative (Negative); PH 5.5 (5.0-9.0); UMIC TRIGGER UACC YES; Urine Blood Negative (Negative); Urine Ketones Negative (Negative); Urine Protein Negative (Neg-Trace)
--- NOTE | 2022-12-09 15:29 | MHC.EDTECH ---
Applied air cast. pt tollerated it well.
--- NOTE | 2022-12-09 15:30 | MHC.EDTECH ---
pt attempted to use crutches and their own cane with the air cast. pt was unsteady. provider notified and present.
[2022-12-09 15:41] LABS: Bacteria Urine None Seen (None Seen); Hyaline Casts Urine 0-2 /LPF (0-2); RBC Urine 0-2 /HPF (0-2); Squamous Epithelial Cell Urine 0-2 /HPF (0-2); WBC Urine 0-5 /HPF (0-5)
[2022-12-09 15:51] LABS: Alanine Aminotransferase 14 U/L (0-40); Albumin Level 4.5 g/dL (3.5-5.0); Alkaline Phosphatase 92 U/L (39-117); Anion Gap 17 (12-20); Aspartate Amino Transferase 20 U/L (5-37); Bilirubin Direct 0.4 mg/dL (0.0-0.5); Bilirubin Total 1.3 mg/dL (0.0-1.0); Blood Urea Nitrogen 13 mg/dL (9-16); Calcium 9.2 mg/dL (8.4-10.2); Carbon Dioxide 21 mmol/L (22-29); Chloride 105 mmol/L (96-108); Estimated Glomerular Filt Rate > 60; Glucose Random 100 mg/dL (60-115); Magnesium 2.1 mg/dL (1.6-2.6); Potassium 4.6 mmol/L (3.3-5.1); Sodium 138 mmol/L (135-145); Total Protein 7.1 g/dL (6.5-8.0)
[2022-12-09 15:55] LABS: Troponin-I High Sensitivity < 3.5 ng/L (<3.5-35.0)
[2022-12-09 15:58] LABS: COVID-19 Test Negative (Negative); IDNOW Serial# BCCEAD1C
[2022-12-09 15:59] LABS: IDNOW Serial# 9DB6401D; Influenza A Negative (Negative); Influenza B2 Negative (Negative)
[2022-12-09 16:18] LABS: B Type Natriuretic Peptide 54 pg/mL (<100)
--- NOTE | 2022-12-09 16:52 | PC.NURSE ---
pt now awaiting case management
--- NOTE | 2022-12-09 17:22 | MHC.RECOVSUP ---
? Reason for consult Recovery Support o [place] [facility] [place] o Identified substance use concern: Alcohol - Support ? Intervention: o Community resources provided o Harm reduction discussion ? Plan: o Patient to follow up with [facility] after discharge ? Additional information: Met with Patient and we talked about recovery and recovery center... Patient was giving Resources
--- NOTE | 2022-12-09 17:38 | PHA.MEDREC ---
Pharmacy Consult ? Medication Reconciliation Pharmacy has completed the medication reconciliation.
--- NOTE | 2022-12-09 18:01 | MHC.CM.ED ---
Pt A&Ox4. Fall. Ankle sprain. Unable to use crutches. Independent. Uses cane. Has CPAP with nasal mask at night. Requested to have family bring to ED. Pt states they can bring it in tomorrow, not tonight. No transportation. Pt aware he will need to bring his CPAP to facility for STR. HX vertigo. Lives with son in [facility] on 2nd floor, lives on first floor.No Services. Moderna x4, Pfizer x1. Previous hx alcohol misuse. Sober x 326 days. No HCP on file. Reviewed, completed and signed. Copies given. HCP/son Shant Calles ([phone]). PT recommending str. Pt agreeable. Care Port given. Referrals made within 20 miles that contract with [facility]. CM will follow for discharge planning.
--- NOTE | 2022-12-09 19:15 | PC.NURSE ---
pt one assist up to the commode at this time
--- NOTE | 2022-12-09 23:35 | PC.NURSE ---
this RN requested that MD order night medications for patient since medications were not ordered previously. MD Mejias ordered medications, awaiting pharmacy verification. Additionally, pt requesting more comfortable bed to sleep in. This RN asked environmental staff if it was possible to obtain a hospital bed, environmental staff said that they would look for bed
[2022-12-09] MEDS: cloNIDine HCL 0.1 MG TABLET PO (23:54)
[2022-12-09] MEDS: Melatonin 3 MG TABLET 6 MG PO (23:54)
[2022-12-09] MEDS: Gabapentin 300 MG CAPSULE PO (23:54)
[2022-12-09] MEDS: Doxazosin Mesylate 2 MG TABLET 4 MG PO (23:54)
[2022-12-09] MEDS: traZODone HCL 100 MG TABLET PO (23:55)
[2022-12-09] MEDS: Folic Acid 1 MG TABLET PO (23:55)
[2022-12-10] VITALS: BP 128/59; PULSE 67; RESP 16; TEMP 36.9; O2SAT 96
--- NOTE | 2022-12-10 00:09 | PC.NURSE ---
pt moved to hospital bed, night medications adminsitered per MAR
--- NOTE | 2022-12-10 01:51 | MHC.EDTECH ---
Pt wearing hospital pants but did not want to change into a gown. Pt states he is cold and is more comfortable wearing his sweater
--- NOTE | 2022-12-10 02:19 | PC.NURSE ---
This filing writer assumed care of this PT at 0145. PT A&Ox4, reports 6/10 left ankle pain. airsplint to left ankle, swollen.
[2022-12-10] MEDS: Ibuprofen 600 MG TABLET PO ×2 (03:10→09:12)
--- NOTE | 2022-12-10 04:47 | PC.NURSE ---
late entry: pt typically wears CPAP at night, pt was unable to get CPAP brought in tonight. Pt was placed on 2L NC solely for support while sleeping
[2022-12-10 05:50] VITALS: BP 138/65; PULSE 58; RESP 17; TEMP 36.6; O2SAT 98
[2022-12-10 07:50] VITALS: BP 120/51; PULSE 57; RESP 12; O2SAT 97
[2022-12-10] MEDS: Omeprazole 40 MG CAPSULE.DR PO (08:29)
[2022-12-10] MEDS: Thiamine HCL 100 MG TABLET PO (08:29)
[2022-12-10] MEDS: Multivitamin TABLET 1 TAB PO (08:29)
[2022-12-10] MEDS: Cyanocobalamin (Vitamin B-12) 1,000 MCG TABLET 1000 MCG PO (08:29)
[2022-12-10] MEDS: buPROPion HCl XL 150 MG TAB.ER.24H PO (08:29)
[2022-12-10] MEDS: amLODIPine Besylate 10 MG TABLET PO (08:29)
[2022-12-10] MEDS: Gabapentin 300 MG CAPSULE PO (08:29)
[2022-12-10] MEDS: lisinopriL 10 MG TABLET PO (08:29)
[2022-12-10] MEDS: Folic Acid 1 MG TABLET PO (08:29)
[2022-12-10] MEDS: Escitalopram Oxalate 10 MG TABLET PO (08:29)
[2022-12-10] MEDS: cloNIDine HCL 0.1 MG TABLET PO (08:29)
[2022-12-10] MEDS: Furosemide 20 MG TABLET PO (08:29)
[2022-12-10] MEDS: Atorvastatin Calcium 20 MG TABLET PO (08:30)
[2022-12-10] MEDS: Finasteride 5 MG TABLET PO (08:37)
[2022-12-10] MEDS: Dextroamphetamine/Amphetamine XR 10 MG CAP.ER.24H 20 MG PO (08:37)
[2022-12-10] MEDS: Naltrexone HCl 50 MG TABLET PO (08:37)
[2022-12-10 09:15] VITALS: BP 120/51; PULSE 57; O2SAT 97
--- NOTE | 2022-12-10 09:42 | MHC.CM.ED ---
Patient remains in ER. Physical therapy recomemnding STR. [facility] able to offer a bed. Met with patient in regards to discharge planning. Patient reports feeling much better and feels he can safely return home if physical therapy agrees. Physical therapy re-eval completed. Patient can return home with walker. Eugenia blackwood booked. [facility] with chart. Patient, Dona KOLB and Natalie AMIN aware. Continue to monitor for d/c needs.
[2022-12-10 09:52] VITALS: BP 131/56; PULSE 65; RESP 16; O2SAT 94
== END 2022-12-10 10:39 | disposition home or self-care (01) ==
PROVIDERS: Physician Assistant; Emergency Provider Emergency Medicine; PCP Internal Medicine
DX: R42 Dizziness and giddiness (principal); S93.402A Sprain of unspecified ligament of left ankle, initial encounter; X50.1XXA Overexertion from prolonged static or awkward postures, initial encounter; I10 Essential (primary) hypertension; F10.10 Alcohol abuse, uncomplicated; Z20.822 Contact with and (suspected) exposure to COVID-19; Z79.02 Long term (current) use of antithrombotics/antiplatelets; Z79.899 Other long term (current) drug therapy; Y93.89 Activity, other specified; Y92.59 Other trade areas as the place of occurrence of the external cause; Y99.9 Unspecified external cause status
CPT/HCPCS: 36415; 73600; 73630; 80048; 80076; 81001; 83735; 83880; 84484; 85025; 87502; 87635; 93005; 97116; 97162; 99285

== ENCOUNTER → 2023-01-22 15:32 | Outpatient (BNVA) | payer OTHER, MEDICAID, SELFPAY | PROVIDERS: PCP Internal Medicine; Visit Provider Urology | DX: N52.9 Male erectile dysfunction, unspecified (principal); N40.1 Benign prostatic hyperplasia with lower urinary tract symptoms; R39.12 Poor urinary stream; R33.9 Retention of urine, unspecified; N13.8 Other obstructive and reflux uropathy | CPT/HCPCS: 99212 ==

== ENCOUNTER → 2023-04-30 10:59 | Outpatient (BNVA) | payer OTHER, MEDICAID, SELFPAY | PROVIDERS: PCP Internal Medicine; Visit Provider Urology | DX: N40.1 Benign prostatic hyperplasia with lower urinary tract symptoms (principal); N13.8 Other obstructive and reflux uropathy; R33.9 Retention of urine, unspecified; R39.12 Poor urinary stream; N52.9 Male erectile dysfunction, unspecified; Z79.899 Other long term (current) drug therapy | CPT/HCPCS: 51798; 99212 ==

== ENCOUNTER 2023-06-03 12:46 | Outpatient (REF) | payer OTHER, MEDICAID, SELFPAY ==
[2023-06-03 16:59] LABS: TSH reflex Free T4 1.58 uIU/mL (0.32-4.0)
[2023-06-10 15:09] LABS: Testosterone, Free 77.4 pg/mL (35.0-155.0); Testosterone, Total 645 ng/dL (250-1100)
== END 2023-06-03 12:47 | disposition home or self-care (01) ==
LOC: HO.HHCL 12:46
PROVIDERS: Visit Provider Internal Medicine
DX: N52.9 Male erectile dysfunction, unspecified (principal); R53.82 Chronic fatigue, unspecified
CPT/HCPCS: 36415; 84402; 84403; 84443

== ENCOUNTER 2023-07-28 14:00 | Outpatient (RCR) | payer OTHER, SELFPAY ==
--- NOTE | 2023-06-28 13:00 | MHC.PT.EP ---
[facility] [place] Office [place] Office [place] Office [address] [place] [address] [phone] F: [phone] F: [phone] F: [phone] F: [phone] Physical Therapy Plan of Care Date of Evaluation: Date of Surgery: N/A Diagnosis: other bursitis of hip, left hip (RL) Assessment: pt is a 68 y/o male presenting to physical therapy w/ referring diagnosis of other bursitis of hip, left hip. Impairments include pain, decreased range of motion, decreased strength, impaired functional mobility, impaired postural awareness, and altered ambulation mechanics. pt is a fair candidate for skilled PT due to age, potential remediation of impairments, typical disease/condition progression and prognosis, comorbidities, and motivation. pt would benefit from skilled PT intervention to provide a tailored strengthening and stretching exercise program, functional training, gait training, postural re-training, neuromuscular re-education, modalities as needed for pain, equipment safety demonstration. Frequency and Duration: The patient will be seen 2x/wk for 4 wks Short Term Goals: pt will be I w/ HEP to promote self-management of condition. pt will improve L hip flexion strength by 1 MMT to promote ease in ascending stairs to access primary living spaces. Agricultural Sciences Professor Goals: pt will improve B tandem stance balance to 30 seconds to reduce fall risk. pt will report a statistically significant improvement in self-reported outcome measure, LEFI, to promote return to PLOF. Treatment Plan: Modalities to reduce pain, spasms and effusion. Manual therapy to restore motion and function. Therapeutic exercise to improve strength and flexibility. Neuromuscular re-education for posture and balance. Therapeutic activities to return to functional activities of daily living. Electronically signed by: Kaia Seay PT, DPT Please sign and return to therapist. Thank you for your referral.
--- NOTE | 2023-08-30 12:27 | MHC.PT.DC ---
[facility] [place] Office [place] Office [place] Office [address] [place] [address] [facility] [phone] F: [phone] F: [phone] F: [phone] F: [phone] Physical Therapy Discharge Report Diagnosis: other bursitis of hip, left hip (RL) Date of Surgery: N/A Date of Evaluation: 06/28/23 Date of Discharge: 08/30/23 Treatments to Date: 8 Cancellations to Date: 1 No Shows to Date: 0 Discharge Status: Improved Function Independent with HEP Discharge Summary: Overall, the patient has been reporting an improvement in his hip pain and increased tolerance for crossed legs position. He is independent with his home exercise program. He is discharged from this physical therapy plan of care. Electronically signed by: Kaia Seay PT, DPT Please sign and return to therapist. Thank you for your referral.
== END 2023-08-30 12:27 | disposition home or self-care (01) ==
LOC: HO.PT 14:00
PROVIDERS: PCP Internal Medicine; Visit Provider Internal Medicine
DX: M70.72 Other bursitis of hip, left hip (principal)
CPT/HCPCS: 97110; 97162

== ENCOUNTER → 2023-09-16 11:11 | Outpatient (BNVA) | payer OTHER, SELFPAY | PROVIDERS: PCP Internal Medicine; Visit Provider Nurse Practitioner ==

== ENCOUNTER 2023-09-30 10:27 | Outpatient (AMB) | payer OTHER, SELFPAY ==
--- NOTE | 2023-09-30 10:30 | A.OFFVIS_ITS ---
Intake Vital Signs 3 09/30/23 10:32 Height 5 ft 4 in Weight 232 lb 5.875 oz BMI 39.9 BP 132/60 Blood Pressure Location Rt brachial Position Sitting Pulse 71 Intake Visit Reasons: Colonoscopy Screening Intake Note: Patient presents to in office visit today as a new patient for colonoscopy screening. CC: Patient reports constipation and trouble swallowing. He states he takes Omeprazole for trouble swallowing. Last colonoscopy about 6 years ago, reports polyps were removed. Engine Builder Required: No Allergies Penicillins Allergy (Verified 09/30/23 10:43) Unknown HPI Colonoscopy Screening 2 HPI0 Details 68-YEAR-OLD MALE HERE for preprocedural meeting to discuss a screening colonoscopy. He is referred by Brittany Saldana of [facility]. PMX Asthma JOSEPH Diabetes Hypertension Chronic fatigue Erectile dysfunction Alcohol abuse Varicose veins of the lower extremities Neurofibromatosis BPH Cervical lymphadenopathy Depression History of colon polyp Bursitis of left hip Vertigo - uses walker * SURGICAL HISTORY Umbilical hernia repari Bilateral inguinal hernia repair Tonsillectomy Lump removed from neck * ALLERGIES PCN, unknown * [facility] LABS: Laboratory Tests 12/09/22 06/03/23 15:21 12:53 WBC 9.7 Hgb 15.9 Hct 46.8 Estimated GFR > 60 Total Bilirubin 1.3 H Direct Bilirubin 0.4 AST 20 ALT 14 Alkaline Phosphata se 92 TSH 1.58 TODAY'S VISIT He has had several scopes before at [facility] and has a hx of TA. He suffers CIC but only moves his bowel q 3-4 days but he has no discomfort and only uses colace. He only has dysphagia if he forgets his omeprazole but otherwise is fine. Past EGD unremarkable. His asthma is well controlled, he has JOSEPH but no cardiac problems. There are no prior problems with anesthesia or sedation. No ID problems. His paternal aunt had CRC and he has polyps. [facility] Medical History (Updated 09/30/23 @ 16:36 by ALONDRA Buckley) ADD (attention deficit disorder) Colon polyp Microscopic hematuria HTN (hypertension) AA (alcohol abuse) BPH (benign prostatic hyperplasia) Surgical History (Updated 09/30/23 @ 11:10 by ALONDRA Buckley) Hx of tonsillectomy H/O bilateral inguinal hernia repair H/O umbilical hernia repair H/O colonoscopy Family History (Updated 09/30/23 @ 10:38 by Prabhu Jones CCM) Mother Throat cancer Paternal Aunt Colon cancer Paternal Grandfather Prostate cancer Social History Alcohol intake: former Patient Tobacco Use Status: Former Tobacco user Review of Systems Const Denies fatigue, Denies fever(s), Denies night sweats, Denies poor appetite and Denies weight loss Eyes Details: glasses Reports requires corrective lenses ENT Reports Normal hearing present, Denies dental pain, Denies dysphagia, Denies hearing loss, Denies mouth pain, Denies odynophagia, Denies throat swelling, Denies tongue swelling and Reports other (Dentition adequate) Card Reports no additional complaints Resp Reports no additional complaints GI Denies abdominal pain, Denies melena, Denies bloating, Denies hematochezia, Reports constipation, Denies GI cramping, Denies dysphagia, Denies excessive flatus, Denies early satiety, Denies heartburn, Denies diarrhea, Denies nausea, Denies odynophagia, Denies vomiting and Denies hematemesis Skin/Breast Denies pruritus, Denies lesions, Denies rash and Denies jaundice Neuro Reports Normal hearing present and Denies Abnormal speech present Endo Denies fatigue Aller/Immun Denies throat swelling and Denies tongue swelling Physical Exam Vital Signs: Last Vital Signs Pulse 71 09/30/23 10:32 BP 132/60 09/30/23 10:32 BMI result Body Mass Index 39.9 Const General: cooperative, no acute distress, well developed and well groomed Nutritional Appearance: well nourished and obese morbidly obese Orientation/consciousness: oriented to person, oriented to place and oriented to time Limitations: No language barrier and ambulation with walker HEENT Head: Yes normocephalic and Yes atraumatic Head images: 2 1. scars Eyes General: appearance normal, both eyes and all related structures Pupils: Equal, round and reactive pupils present Neck Neck: Yes normal visual inspection and Yes no lymphadenopathy Thyroid: Thyroid normal Resp Effort & Inspection: normal respiratory effort and able to speak in complete sentences Auscultation: clear to auscultation bilaterally Cardio Rate: regular rate Rhythm: regular rhythm Heart sounds: Normal, physiologic split S2 sound present Peripheral pulses: radial pulses present and posterior tibial pulses present GI Inspection: No distended, Yes Abdominal panniculus present and Yes obesity Palpation (GI): Soft to palpation, nontender, no guarding, not rigid and No hepatosplenomegaly present Percussion: Yes normal to percussion Auscultation: normal bowel sounds Rectal Exam - Male: Yes deferred Abdomen image: 2 1. surgical scars 2. lump 3. lump 4. lump Skin General skin exam: no rashes or lesions noted, turgor normal, skin not dry, no jaundice, No spider nevi and no striae Rashes: no rashes Nails: normal Neuro General: oriented to person, oriented to place and oriented to time Cranial nerves: Yes Equal, round and reactive pupils present and Yes Normal hearing present Speech: No Abnormal speech present Extrem General: Yes normal to inspection, No clubbing, No cyanosis and Yes edema (wearing compression stockings) Psych Appearance: grossly normal and well kempt Mental Status: mental status grossly normal Speech and movement: Normal speech and movement present Affect: normal affect Attitude: cooperative Thought process: Normal thought process present and not confabulating Thought content: Normal thought content present Insight: Fair insight present (Psych) Judgement: Fair judgement present (Psych) Assessment & Plan Assessment & Plan (1) Pre-op examination: Code(s): Z01.818 - Encounter for other preprocedural examination Plan: He has had several scopes before at [facility] and has a hx of TA. He suffers CIC but only moves his bowel q 3-4 days but he has no discomfort and only uses colace. He only has dysphagia if he forgets his omeprazole but otherwise is fine. Past EGD unremarkable. His asthma is well controlled, he has JOSEPH but no cardiac problems. There are no prior problems with anesthesia or sedation. No ID problems. His paternal aunt had CRC and he has polyps. (2) Tubular adenoma of colon: Comment: Prior colonoscopies at [facility] Code(s): D12.6 - Benign neoplasm of colon, unspecified (3) AA (alcohol abuse): Code(s): F10.10 - Alcohol abuse, uncomplicated (4) Neurofibromatosis: Code(s): Q85.00 - Neurofibromatosis, unspecified Coding Level of Care Code New Pt Level 3 (06035) Diagnoses Pre-op examination Z01.818 Tubular adenoma of colon D12.6 AA (alcohol abuse) F10.10 Neurofibromatosis Q85.00
[2023-09-30 10:32] VITALS: BP 132/60; PULSE 71; BMI 39.9
== END 2023-09-30 11:16 | disposition home or self-care (01) ==
PROVIDERS: PCP Internal Medicine; Visit Provider Nurse Practitioner
DX: Z01.818 Encounter for other preprocedural examination (principal); Z12.11 Encounter for screening for malignant neoplasm of colon; Z80.0 Family history of malignant neoplasm of digestive organs
CPT/HCPCS: 99203

== ENCOUNTER → 2023-09-30 10:27 | Outpatient (BNVA) | payer OTHER, SELFPAY | PROVIDERS: PCP Internal Medicine; Visit Provider Nurse Practitioner | DX: Z01.818 Encounter for other preprocedural examination (principal); D12.6 Benign neoplasm of colon, unspecified; F10.10 Alcohol abuse, uncomplicated; Q85.00 Neurofibromatosis, unspecified | CPT/HCPCS: 99202 ==

== ENCOUNTER 2023-10-28 11:21 | Outpatient (AMB) | payer OTHER, MEDICAID, SELFPAY ==
--- NOTE | 2023-10-28 11:57 | MHC.OFFVIS ---
Intake Intake Visit Reasons: 6m follow up/PVR Allergies Penicillins Allergy (Verified 09/30/23 10:43) Unknown Medication List - Last Reconciled 10/28/23 by Ramiro Victoria MD atorvastatin 20 mg PO DAILY bupropion HCl 300 mg PO DAILY clonidine HCl 0.1 mg PO BID cyanocobalamin (vitamin B-12) 1,000 mcg PO QAM cyanocobalamin (vitamin B-12) 1,000 mcg PO DAILY dextroamphetamine-amphetamine 10 mg ER PO docusate sodium 100 mg PO BID felodipine ER 10 mg PO DAILY finasteride 5 mg PO DAILY 90 days fluticasone propionate 50 mcg/actuation sprays intranasal folic acid 1 mg PO QAM furosemide 20 mg PO DAILY gabapentin 1 cap PO TID lancets (OneTouch Delica Plus Lancet) As directed lisinopril 10 mg PO DAILY meclizine 50 mg (2 x 25 mg) PO BID PRN melatonin 5 mg PO BEDTIME ejweqdik-ovp-FE-lycopen-lutein 0.4 mg-300 mcg- 250 mcg (Cerovite Senior) 1 tab PO QAM naltrexone 50 mg PO QAM omeprazole 40 mg PO DAILY tadalafil 20 mg PO ONCE PRN 30 days tadalafil 10 mg PO DAILY 90 days terazosin 5 mg PO BEDTIME 90 days trazodone 100 mg PO BEDTIME HPI HPI Comments History of Present Illness Details Dane is a pleasant male. He is a patient of . He is seen for the following urologic conditions - incomplete bladder emptying - lower urinary tract symptoms - erectile dysfunction Continue good response to combination therapy PVR 0 cc He did ask questions regarding prostate procedures May try treating only with finasteride If need be can restart terazosin Secondary issue erectile dysfunction Minimal impact from high-dose daily and on demand medication Discussed penile pump versus injections At this stage will not be treated 06/06 T 645 Erectile dysfunction Current therapy daily 10 mg with up to 20 mg on dose 9 and Prior therapy low-dose tadalafil Other medications include citalopram, bupropion, gabapentin Lower urinary tract symptoms Current therapy combination finasteride with terazosin Prior therapy with tamsulosin Incomplete emptying PVR 65 Weak stream Occasional nocturia Background of heavy alcohol use Cystoscopy 08/06 long prostate with bilateral lobes Therapeutic plan - combination therapy in addition of finasteride [facility] Medical History (Updated 09/30/23 @ 16:36 by ALONDRA Buckley) ADD (attention deficit disorder) Colon polyp Microscopic hematuria HTN (hypertension) AA (alcohol abuse) BPH (benign prostatic hyperplasia) Surgical History (Updated 09/30/23 @ 11:10 by ALONDRA Buckley) Hx of tonsillectomy H/O bilateral inguinal hernia repair H/O umbilical hernia repair H/O colonoscopy Family History (Updated 09/30/23 @ 10:38 by FERNANDO Tafoya) Mother Throat cancer Paternal Aunt Colon cancer Paternal Grandfather Prostate cancer Social History Alcohol intake: former Patient Tobacco Use Status: Former Tobacco user Review of Systems Const Denies chills and Denies fever(s) Card Reports no additional complaints and Denies syncope Resp Denies cough GI Denies abdominal pain and Denies heartburn Reports as per HPI and Denies change in libido Neuro Denies syncope Psych Denies change in libido Endo Denies change in libido Physical Exam Const General: cooperative, healthy appearing, comfortable and no acute distress Orientation/consciousness: patient oriented x3 HEENT Face and sinus: Yes normal facial exam Mouth: moist mucous membranes Neck Neck: Yes normal visual inspection, Yes full ROM and Yes trachea midline Chest Chest palpation & inspection: normal inspection of the chest Resp Effort & Inspection: normal respiratory effort, able to speak in complete sentences and no respiratory distress GI Inspection: Yes normal to inspection Back/Spine/Pelvis Cervical Spine: normal cervical lordosis Thoracic/Lumbar Spine: thoracic and lumbar spine normal to inspection Skin General skin exam: no rashes or lesions noted Neuro General: patient oriented x3, gait normal, tone normal and moves all extremities Extrem General: Yes normal to inspection and Yes capillary refill normal Office Procedures Post Void Residual Post Residual Void Post Void Residual (PVR): 0 14220-Ximl Void Residual by ultrasound Assessment & Plan Assessment & Plan (1) BPH w urinary obs/LUTS: Code(s): N40.1 - Benign prostatic hyperplasia with lower urinary tract symptoms; N13.8 - Other obstructive and reflux uropathy Plan Twelve month follow-up lab work Orders: Orders AMB Post Void Residual by ultrasound Today N40.1 - Benign prostatic hyperplasia with lower urinary tract symptoms, R33.9 - Retention of urine, unspecified Prostate Specific Antigen 364 Days N13.8 - Other obstructive and reflux uropathy, N40.1 - Benign prostatic hyperplasia with lower urinary tract symptoms Medications: Refilled finasteride 5 mg PO DAILY 90 tabs 3RF 90 days N13.8 - Other obstructive and reflux uropathy, N40.1 - Benign prostatic hyperplasia with lower urinary tract symptoms, R33.9 - Retention of urine, unspecified Patient Instructions: Imaging studies, laboratory and physical exam results were discussed and reviewed in detail. No major barriers to patient understanding were identified. An opportunity to ask questions regarding the treatment plan was provided. All questions were answered. The patient expressed understanding and agreement with the above treatment plan. The patient is aware they should contact our office by phone for worsening of their current condition or the appearance of new urologic symptoms. Compliance is encouraged with any medications and followup testing that is ordered. It is a privilege to participate in the urologic care of your patient. If you have any questions or concerns regarding treatment for the above conditions, or other urologic issues, please do not hesitate to contact me. The office telephone contact is [phone]. This note is constructed using voice recognition software. While every effort has been made to ensure accuracy gis database administrator errors may have been included. Yours sincerely, Dr Ramiro Victoria MD, [facility] - Urology Providers of Expert, Compassionate Care for the Genitourinary System Coding Level of Care Code Est Pt Level 3 (53734) Diagnoses BPH w urinary obs/LUTS N40.1; N13.8 CPT Codes Post Residual Void - PVR CPT Code: 03228-Grik Void Residual by ultrasound ([id number])
== END 2023-10-28 12:03 | disposition home or self-care (01) ==
PROVIDERS: PCP Internal Medicine; Visit Provider Urology
DX: N40.1 Benign prostatic hyperplasia with lower urinary tract symptoms (principal); N13.8 Other obstructive and reflux uropathy
CPT/HCPCS: 99213

== ENCOUNTER → 2023-10-28 11:21 | Outpatient (BNVA) | payer OTHER, SELFPAY | PROVIDERS: PCP Internal Medicine; Visit Provider Urology | DX: N40.1 Benign prostatic hyperplasia with lower urinary tract symptoms (principal); N13.8 Other obstructive and reflux uropathy | CPT/HCPCS: 51798; 99212 ==

== ENCOUNTER 2023-11-16 11:01 | Outpatient (AMB) | payer OTHER, SELFPAY ==
[2023-11-16 11:03] VITALS: BP 130/60; PULSE 79; O2SAT 94; BMI 39.1
--- NOTE | 2023-11-16 11:03 | MHC.OFFVIS ---
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 pt states he has pain in his left leg and states he gets swelling in his ankles and feet after standing or sitting for a longer period of time. Pt states he uses compression stockings. Pt states he has discoloration of both of his feet. 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 Complaints include pain over varicosities, swelling of lower extremities, cramping, fatigue, and heaviness of the lower extremities. 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 It is noted more so in left leg. Patient denies any previous venous surgery or injections. Patient denies any history of DVT/ PE. Patient denies any history of phlebitis. Trial of compression includes - [id number] which he has been faithful for over 40 years They now present for vascular evaluation regarding their varicose veins. [facility] Medical History ADD (attention deficit disorder) Colon polyp Microscopic hematuria HTN (hypertension) AA (alcohol abuse) BPH (benign prostatic hyperplasia) Surgical History Hx of tonsillectomy H/O bilateral inguinal hernia repair H/O umbilical hernia repair H/O colonoscopy Family History Mother Throat cancer Paternal Aunt Colon cancer Paternal Grandfather Prostate cancer Social History Alcohol intake: former Patient Tobacco Use Status: Former Tobacco user Review of Systems Const Reports as per HPI ENT Reports no additional complaints Card Denies chest pain, Denies chest pain at rest and Denies chest pain with activity Resp Denies chest congestion and Denies cough GI Reports no additional complaints Musc Details: pain over varicosities, aching of lower extremities, swelling, cramping, heaviness and tiredness, itching Denies abnormal gait Skin/Breast Reports pruritus and Denies wounds Neuro Reports no additional complaints and Denies abnormal gait Psych Denies no additional complaints Physical Exam Vital Signs: Last Vital Signs Pulse 79 11/16/23 11:03 BP 130/60 11/16/23 11:03 Pulse Ox 94 11/16/23 11:03 Oxygen Delivery Method Room Air 11/16/23 11:03 BMI result Body Mass Index 39.1 Const General: cooperative, healthy appearing and comfortable Orientation/consciousness: oriented to person, oriented to place and oriented to time Neck Carotids: no bruits Chest Chest palpation & inspection: normal inspection of the chest and normal palpation of entire chest wall Resp Effort & Inspection: normal respiratory effort and able to speak in complete sentences Cardio Rate: regular rate Heart sounds: S1 normal heart sound present and S2 normal heart sound present Peripheral pulses: Peripheral pulses 2+ throughout GI Inspection: Yes normal to inspection Skin Other: +2 edema, large rope-like varicosities greater than 4 mm large cluster left thigh and calf CEAP Classification C4 - skin color changes Ep - Etiology Primary As - superficial veins P - reflux General skin exam: dry skin Neuro General: oriented to person, oriented to place and oriented to time Extrem Right lower extremity: full ROM, normal capillary refill and edema Left lower extremity: full ROM, normal capillary refill and edema Psych Mental Status: mental status grossly normal Assessment & Plan Assessment & Plan (1) Varicose veins of left lower extremity with inflammation: Code(s): I83.12 - Varicose veins of left lower extremity with inflammation Plan: In short, the patient has evidence of venous insufficiency. I have discussed the pathophysiology with the patient. In addition I have provided informational material regarding venous disease to the patient. We have discussed conservative measures including compression, elevation, and exercise. I have also provided a handout regarding appropriate use of compression stockings and where to purchase good compression stockings as well. I have taken the liberty of ordering venous insufficiency testing with the patient. They will follow up with me after testing. The patient had an opportunity to ask questions regarding the treatment plan. All questions were answered. Imaging studies, laboratory studies and physical exam results were discussed and reviewed in detail. No major barriers to understanding were identified. The patient expressed understanding and agreement with the above treatment plan. The patient is aware they should contact our office by phone for worsening of the current condition or the appearance of new symptoms. Thank you for allowing me to participate in the vascular care of this patient. If you have any questions or concerns regarding the treatment for the above condition please do not hesitate to contact me. The office telephone contact is [phone]. This note is constructed using voice recognition software. While every effort has been made to ensure accuracy, train operator errors may have been included. Thank you for allowing me to participate in the care of your patient. Yours sincerely, Epifanio Mcleod MD, FACS, R.P.V.I. Orders: Orders US venous duplex LE BI 1 Week I83.12 - Varicose veins of left lower extremity with inflammation Coding Level of Care Code New Pt Level 4 (51118) Diagnoses Varicose veins of left lower extremity with inflammation I83.12
== END 2023-11-16 11:23 | disposition home or self-care (01) ==
PROVIDERS: PCP Internal Medicine; Visit Provider Surgery Vascular Surgery
DX: I83.12 Varicose veins of left lower extremity with inflammation (principal)
CPT/HCPCS: 99203

== ENCOUNTER → 2023-11-16 11:01 | Outpatient (BNVA) | payer OTHER, SELFPAY | PROVIDERS: PCP Internal Medicine; Visit Provider Surgery Vascular Surgery | DX: I83.12 Varicose veins of left lower extremity with inflammation (principal) | CPT/HCPCS: 99202 ==

== ENCOUNTER 2023-11-23 10:21 | Outpatient (REF) | payer OTHER, SELFPAY ==
--- NOTE | ~2023-11-23 | US_ITS ---
EXAMINATION: US LOWER EXTREMITY VENOUS (REFLUX EXAM), BILATERAL CLINICAL INDICATION: Left lower extremity varicose veins COMPARISON: None. TECHNIQUE: Color flow triplex imaging and compression Doppler was performed to evaluate both the deep and the superficial systems bilaterally. To evaluate the superficial system, the examination was performed in the upright position. Color-flow Doppler ultrasound and compression ultrasound were utilized. In addition, maneuvers were utilized to demonstrate reflux. FINDINGS: RIGHT: 1. DEEP VENOUS ULTRASOUND OF THE RIGHT LOWER EXTREMITY: Common Femoral Vein: Compressible, normal respiratory variation and augmented flow. Popliteal Vein: Compressible, normal augmentation. Deep Venous Reflux: There is no evidence of reflux in the deep system in either the common femoral vein or the popliteal vein. There is no evidence of a Ku's cyst. 2. SUPERFICIAL ULTRASOUND WITH DOPPLER OF RIGHT LOWER EXTREMITY: RIGHT GREAT SAPHENOUS VEIN: Saphenofemoral Junction: 7 mm. No reflux. Proximal Thigh: 5 mm. No reflux. Mid Thigh: 4 mm. No reflux. Above Knee: 4 mm. No reflux. Below Knee: 4 mm. No reflux. Mid Calf: 2 mm. No reflux. Ankle: 3 mm. No reflux. DUPLICATED GREAT SAPHENOUS VEIN: Yes, laterally and without reflux. RIGHT SMALL SAPHENOUS VEIN: Proximal: 2 mm. No reflux. Distal: 1 mm. No reflux. PERFORATORS: Small cargo checker measuring 1 mm arising from the great saphenous vein at the mid and distal calf, without reflux. LEFT: 1. DEEP VENOUS ULTRASOUND OF THE LEFT LOWER EXTREMITY: Common Femoral Vein: Compressible, normal respiratory variation and augmented flow. Popliteal Vein: Compressible, normal augmentation. Deep Venous Reflux: There is no evidence of reflux in the deep system in either the common femoral vein or the popliteal vein. There is no evidence of a Ku's cyst. 2. SUPERFICIAL ULTRASOUND WITH DOPPLER OF LEFT LOWER EXTREMITY: LEFT GREAT SAPHENOUS VEIN: Saphenofemoral Junction: 10 mm. No reflux. Proximal Thigh: 6 mm. No reflux. Mid Thigh: 5 mm. No reflux. Above Knee: 4 mm. No reflux. Below Knee: 4 mm. No reflux. Mid Calf: 3 mm. No reflux. Ankle: 3 mm. No reflux. DUPLICATED GREAT SAPHENOUS VEIN: Yes, laterally and without reflux. LEFT SMALL SAPHENOUS VEIN: Proximal: 4 mm. No reflux. Distal: 2 mm. No reflux. PERFORATORS: Small cargo checker measuring 2 mm arising from the great saphenous vein at the distal calf, without reflux. US/US venous duplex LE BI IMPRESSION: No abnormal lower extremity superficial reflux or DVT. Abnormal lower extremity venous reflux times: Superficial and deep calf veins: >500 ms Femoropopliteal veins: >1000 ms Perforating veins: >350 ms Jocy N, Kiel J, Lorraine L, Ole AK, Paul SS, Henrietta Tomlinson M, Kings WH. Definition of venous reflux in lower-extremity veins.J Vasc Surg. 2003; [phone].
== END 2023-11-23 10:22 | disposition home or self-care (01) ==
LOC: HO.US 10:21
PROVIDERS: PCP Internal Medicine; Visit Provider Surgery Vascular Surgery
DX: I83.12 Varicose veins of left lower extremity with inflammation (principal)
CPT/HCPCS: 93970

== ENCOUNTER → 2023-12-14 14:24 | Outpatient (BNVA) | payer OTHER, SELFPAY | PROVIDERS: PCP Internal Medicine; Visit Provider Surgery Vascular Surgery | DX: I83.12 Varicose veins of left lower extremity with inflammation (principal); I89.0 Lymphedema, not elsewhere classified | CPT/HCPCS: 99212 ==

== ENCOUNTER 2023-12-14 14:35 | Outpatient (AMB) | payer OTHER, SELFPAY ==
[2023-12-14 14:24] VITALS: BP 124/60; PULSE 67; O2SAT 96; BMI 39.1
--- NOTE | 2023-12-14 14:24 | MHC.OFFVIS ---
Intake Vital Signs 12/14/23 14:24 Height 5 ft 4 in Weight 228 lb BMI 39.1 BP 124/60 Blood Pressure Location Lt brachial Position Sitting Pulse 67 Pulse Source Pulse Oximeter Pulse Oximetry (%) 96 Oxygen Delivery Method Room Air Intake Visit Reasons: Follow Up Intake Note: Pt presents to the office today for a follow up . Pt states his legs are still swelling but are not painful.Pt states he will also get some numbness and tingling mainly in his feet. Pt states his feet are sometimes discolored as well. Allergies Penicillins Allergy (Verified 12/14/23 14:27) Unknown HPI Follow Up HPI Details Very pleasant 68-year-old gentleman presents for follow-up regarding leg swelling. He has been compliant with his compression stockings. They provided minimal relief. He is undergone venous insufficiency testing. Now presents for follow-up. [facility] Medical History ADD (attention deficit disorder) Colon polyp Microscopic hematuria HTN (hypertension) AA (alcohol abuse) BPH (benign prostatic hyperplasia) Surgical History Hx of tonsillectomy H/O bilateral inguinal hernia repair H/O umbilical hernia repair H/O colonoscopy Family History Mother Throat cancer Paternal Aunt Colon cancer Paternal Grandfather Prostate cancer Social History Alcohol intake: former Patient Tobacco Use Status: Former Tobacco user Review of Systems Const Reports as per HPI ENT Reports no additional complaints Card Denies chest pain, Denies chest pain at rest and Denies chest pain with activity Resp Denies chest congestion and Denies cough GI Reports no additional complaints Musc Details: pain over varicosities, aching of lower extremities, swelling, cramping, heaviness and tiredness, itching Denies abnormal gait Skin/Breast Reports pruritus and Denies wounds Neuro Reports no additional complaints and Denies abnormal gait Psych Denies no additional complaints Physical Exam Vital Signs: Last Vital Signs Pulse 67 12/14/23 14:24 BP 124/60 12/14/23 14:24 Pulse Ox 96 12/14/23 14:24 Oxygen Delivery Method Room Air 12/14/23 14:24 BMI result Body Mass Index 39.1 Const General: cooperative, healthy appearing and comfortable Orientation/consciousness: oriented to person, oriented to place and oriented to time Neck Carotids: no bruits Chest Chest palpation & inspection: normal inspection of the chest and normal palpation of entire chest wall Resp Effort & Inspection: normal respiratory effort and able to speak in complete sentences Cardio Rate: regular rate Heart sounds: S1 normal heart sound present and S2 normal heart sound present Peripheral pulses: Peripheral pulses 2+ throughout GI Inspection: Yes normal to inspection Skin Other: +2 edema, General skin exam: dry skin Neuro General: oriented to person, oriented to place and oriented to time Extrem Other: Right in cm: Thigh 56 Knee 46 Calf 43 Ankle 28.5 Left in cm: Thigh 54.5 Knee 47 Calf 45.5 Ankle 29 Hip/abdomen 135.5 Right lower extremity: full ROM, normal capillary refill and edema Left lower extremity: full ROM, normal capillary refill and edema Psych Mental Status: mental status grossly normal Results Reviewed Results Reviewed: Brief summary of venous insufficiency testing is as follows: right great saphenous vein: negative right small saphenous vein: negative right accessory vein: none present left great saphenous vein: negative left small saphenous vein: negative left accessory vein: none present Please note there is no evidence of any venous aneurysms or significant tortuosity Assessment & Plan Assessment & Plan (1) Varicose veins of left lower extremity with inflammation: Code(s): I83.12 - Varicose veins of left lower extremity with inflammation Plan: Patient is negative for any significant venous insufficiency. Will treat for lymphedema (2) Lymphedema: Code(s): I89.0 - Lymphedema, not elsewhere classified Plan: In short the patient has late on sent lymphedema. The patient has been on conservative treatment for at least 3 months with minimal relief. Patient has tried 30 mm of mercury compression garments, elevation, exercise healthy diet and doing manual says self MLD to the best of their ability for over 4 weeks but with no significant relief. She has been compliant with the program but has provided minimal relief. In addition on physical we are noticing hyperpigmentation, lymphorrhea, and hyperplasia. It appears that she has stage 2 lymphedema. Patient has completed multiple forms of conservative therapy yet significant symptoms remain. Patient requires the use of a pneumatic compression device which we will assist in trying to have the patient obtain them. I do not think a basic pump will help him he will need in advance pump as he does have central and truncal swelling A pneumatic compression device will help reduce swelling and other lymphedema comorbidities. Thank you for allowing us to assist in this patient's care. Coding Level of Care Code Est Pt Level 4 (47497) Diagnoses Varicose veins of left lower extremity with inflammation I83.12 Lymphedema I89.0
== END 2023-12-14 14:44 | disposition home or self-care (01) ==
PROVIDERS: PCP Internal Medicine; Visit Provider Surgery Vascular Surgery
DX: I83.12 Varicose veins of left lower extremity with inflammation (principal); I89.0 Lymphedema, not elsewhere classified
CPT/HCPCS: 99214

== ENCOUNTER → 2023-12-15 10:56 | Outpatient (BNVA) | payer OTHER, SELFPAY | PROVIDERS: PCP Internal Medicine; Visit Provider Surgery ==

== ENCOUNTER 2023-12-21 08:03 | Outpatient (AMB) | payer OTHER, SELFPAY ==
--- NOTE | 2023-12-21 09:16 | MHC.OFFVISWM ---
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 39.4 Allergies Penicillins Allergy (Verified 12/21/23 09:16) Unknown Medication List - Last Reconciled 12/21/23 by Reece Valdez MD albuterol sulfate 90 mcg/actuation 2 puffs inhalation Q6H PRN atorvastatin 20 mg PO DAILY bupropion HCl 300 mg PO DAILY clonidine HCl 0.1 mg PO BID cyanocobalamin (vitamin B-12) 1,000 mcg PO QAM cyanocobalamin (vitamin B-12) 1,000 mcg PO DAILY docusate sodium 100 mg PO BID felodipine ER 10 mg PO DAILY finasteride 5 mg PO DAILY 90 days fluticasone propionate 50 mcg/actuation sprays intranasal folic acid 1 mg PO QAM furosemide 20 mg PO DAILY gabapentin 1 cap PO TID lancets (OneTouch Delica Plus Lancet) As directed lisinopril 10 mg PO DAILY melatonin 5 mg PO BEDTIME methylphenidate HCl ER (Concerta) 27 mg PO DAILY ujjfeysk-cti-LS-lycopen-lutein 0.4 mg-300 mcg- 250 mcg (Cerovite Senior) 1 tab PO QAM omeprazole 40 mg PO DAILY tadalafil 10 mg PO DAILY 90 days terazosin 5 mg PO BEDTIME 90 days trazodone 100 mg PO BEDTIME 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 BMI 39.4 HPI Details Start time: 9.10am, End time: 10.01 ?I spent 46 minutes speaking with the patient on the phone plus an additional 5 minutes reviewing and updating records for a total of 51 minutes HPI Comments History of Present Illness Details Previous weight loss efforts: self diets, exercise Wakes up: 7am, sleeps: 11pm Breakfast: 9am (eggs, pancakes, icelandic toast) Lunch: 12pm (rice, beans, meat) Dinner: skips Snacks: 4pm (cookies or cake), 6pm (cereal) Exercise: walking, access to stationary bike Fluids: Coffee: none, tea: none, soda: none, juice: none, ETOH: none (ETOH abuse up to 2 years) [facility], [facility] Medical History (Updated 12/21/23 @ 09:34 by Reece Valdez MD) DJD (degenerative joint disease) Von Recklinghausen disease GERD (gastroesophageal reflux disease) Anxiety Hyperlipidemia Insomnia Sleep apnea with use of continuous positive airway pressure (CPAP) Obesity Depression ADD (attention deficit disorder) Colon polyp Microscopic hematuria HTN (hypertension) AA (alcohol abuse) BPH (benign prostatic hyperplasia) Surgical History Hx of tonsillectomy H/O bilateral inguinal hernia repair H/O umbilical hernia repair H/O colonoscopy Family History Mother Throat cancer Paternal Aunt Colon cancer Paternal Grandfather Prostate cancer Social History Alcohol intake: former Patient Tobacco Use Status: Former Tobacco user Assessment & Plan Assessment & Plan (1) Obesity: Code(s): E66.9 - Obesity, unspecified Qualifiers: Obesity type: due to excess calories Obesity classification: adult class 2 (BMI 35 - 39.9) Serious obesity comorbidity presence: with serious comorbidity Body mass index: BMI 39.0-39.9 Qualified Code(s): E66.01 - Morbid (severe) obesity due to excess calories; Z68.39 - Body mass index [BMI] 39.0-39.9, adult Plan: 1.? Plan for lap sleeve gastrectomy. If diaphragmatic or ventral hernias are present at time of surgery, these will be repaired laparoscopically as well. Risks and complications were discussed in detail including possible conversion to an open procedure, anastomotic leak, bleeding requiring transfusion, small bowel obstruction, , DVT and pulmonary embolism, cardiac, or pulmonary complications, as senior care complications such as anastomotic ulcer, insufficient weight loss and vitamin deficiencies. I emphasized the importance of close follow-up, adherence to instructions and good communication. 2. Nutritional counseling. Start with 2 Isopure protein (buy at [employer]) shakes (HALF scoop EACH in 8oz water) at 8am-10am and 11am-1pm, 1 protein bar (Zone Perfect protein bars, buy at [employer], ?[employer], [facility], or [employer]) at 2pm-4pm, dinner at 5pm (8 forks of protein and 8 forks of salad/vegetables), one more protein bar after dinner at 7pm-9pm AND HALf protein bar at 10pm-11pm. So you do 2 protein shakes, 2.5 protein bars and one meal per day. Meal to include lean meat (beef, fish, pork, turkey, chicken), or nauruan yogurt, or egg whites, or beans with a salad with olive oil and fruits (berries, pears, apples, kiwi). Avoid salt, breads, potatoes, rice, pasta, desserts. 3. Each shake would be drunk slowly, like coffee in a period of 2 hours. 4. Cut each bar in 4 pieces and eat each piece in 30min ?to make each bar last 2 hours. 5. I emphasized the importance of measuring accurately the food portion and measure it when serving the food in plate 6. The meal portions include 8 full-size forks of meat and 10 full-size forks of salad. You always eat the meat portion but you can replace up to 5 forks for salad/vegetables with rice, potatoes or pasta, or a fruit ?if you like. The less you do it the better weight loss will be. 7. One full-size fork is what it can be scooped on the fork without falling aside and not what can be bit with the fork. Use regular forks like those you find in a typical restaurant. 8.? Please send me weight measurements as soon as possible and then once a week. Always include your diet and exercise plan. 9. Start stationary bike at a resistance level of 4.0 Increase level by 1.0 every 3 min to a max level of 10.0. Stay at this level for 3 min and then return to level 4.0 and repeat same steps until 400 calories are burned, 5 days per week. You do 200 calories during breakfast time and another 200 calories during lunch time. Goal is to burn 2000 calories per week on exercise 10.?Goal is to lose at least 1.5-2lbs per week 11. Goal to lose 10% of your weight before surgery, which is about 22lbs. Ultimate weight goal: 200lbs before surgery 12. Please follow the diet plan exactly without any change. If you don't like something about the plan or you feel hungry you need to communicate with me so I can help you revise the plan. You should not change the plan yourself. Orders: Orders Hemoglobin A1c Today E11.9 - Type 2 diabetes mellitus without complications, E66.9 - Obesity, unspecified, E78.5 - Hyperlipidemia, unspecified, F41.9 - Anxiety disorder, unspecified, G47.30 - Sleep apnea, unspecified, I10 - Essential (primary) hypertension Complete Blood Count Auto Diff Today E11.9 - Type 2 diabetes mellitus without complications, E66.9 - Obesity, unspecified, E78.5 - Hyperlipidemia, unspecified, F41.9 - Anxiety disorder, unspecified, G47.30 - Sleep apnea, unspecified, I10 - Essential (primary) hypertension IRON PROFILE Today E11.9 - Type 2 diabetes mellitus without complications, E66.9 - Obesity, unspecified, E78.5 - Hyperlipidemia, unspecified, F41.9 - Anxiety disorder, unspecified, G47.30 - Sleep apnea, unspecified, I10 - Essential (primary) hypertension Vitamin B12 and Folate Today E11.9 - Type 2 diabetes mellitus without complications, E66.9 - Obesity, unspecified, E78.5 - Hyperlipidemia, unspecified, F41.9 - Anxiety disorder, unspecified, G47.30 - Sleep apnea, unspecified, I10 - Essential (primary) hypertension Vitamin B1 Today E11.9 - Type 2 diabetes mellitus without complications, E66.9 - Obesity, unspecified, E78.5 - Hyperlipidemia, unspecified, F41.9 - Anxiety disorder, unspecified, G47.30 - Sleep apnea, unspecified, I10 - Essential (primary) hypertension Vitamin A Today E11.9 - Type 2 diabetes mellitus without complications, E66.9 - Obesity, unspecified, E78.5 - Hyperlipidemia, unspecified, F41.9 - Anxiety disorder, unspecified, G47.30 - Sleep apnea, unspecified, I10 - Essential (primary) hypertension TSH reflex Free T4 Today E11.9 - Type 2 diabetes mellitus without complications, E66.9 - Obesity, unspecified, E78.5 - Hyperlipidemia, unspecified, F41.9 - Anxiety disorder, unspecified, G47.30 - Sleep apnea, unspecified, I10 - Essential (primary) hypertension Vitamin D 25-OH Total Today E11.9 - Type 2 diabetes mellitus without complications, E66.9 - Obesity, unspecified, E78.5 - Hyperlipidemia, unspecified, F41.9 - Anxiety disorder, unspecified, G47.30 - Sleep apnea, unspecified, I10 - Essential (primary) hypertension US abdomen comp w elastography Today E11.9 - Type 2 diabetes mellitus without complications, E66.9 - Obesity, unspecified, E78.5 - Hyperlipidemia, unspecified, F41.9 - Anxiety disorder, unspecified, G47.30 - Sleep apnea, unspecified, I10 - Essential (primary) hypertension XR chest 2V Today E11.9 - Type 2 diabetes mellitus without complications, E66.9 - Obesity, unspecified, E78.5 - Hyperlipidemia, unspecified, F41.9 - Anxiety disorder, unspecified, G47.30 - Sleep apnea, unspecified, I10 - Essential (primary) hypertension Insulin Today E11.9 - Type 2 diabetes mellitus without complications, E66.9 - Obesity, unspecified, E78.5 - Hyperlipidemia, unspecified, F41.9 - Anxiety disorder, unspecified, G47.30 - Sleep apnea, unspecified, I10 - Essential (primary) hypertension H Pylori Breath Test Today E11.9 - Type 2 diabetes mellitus without complications, E66.9 - Obesity, unspecified, E78.5 - Hyperlipidemia, unspecified, F41.9 - Anxiety disorder, unspecified, G47.30 - Sleep apnea, unspecified, I10 - Essential (primary) hypertension Lipid Panel Today E11.9 - Type 2 diabetes mellitus without complications, E66.9 - Obesity, unspecified, E78.5 - Hyperlipidemia, unspecified, F41.9 - Anxiety disorder, unspecified, G47.30 - Sleep apnea, unspecified, I10 - Essential (primary) hypertension Comprehensive Met. Panel Today E11.9 - Type 2 diabetes mellitus without complications, E66.9 - Obesity, unspecified, E78.5 - Hyperlipidemia, unspecified, F41.9 - Anxiety disorder, unspecified, G47.30 - Sleep apnea, unspecified, I10 - Essential (primary) hypertension Zinc Today E11.9 - Type 2 diabetes mellitus without complications, E66.9 - Obesity, unspecified, E78.5 - Hyperlipidemia, unspecified, F41.9 - Anxiety disorder, unspecified, G47.30 - Sleep apnea, unspecified, I10 - Essential (primary) hypertension C Reactive Protein Today E11.9 - Type 2 diabetes mellitus without complications, E66.9 - Obesity, unspecified, E78.5 - Hyperlipidemia, unspecified, F41.9 - Anxiety disorder, unspecified, G47.30 - Sleep apnea, unspecified, I10 - Essential (primary) hypertension Ferritin Today E11.9 - Type 2 diabetes mellitus without complications, E66.9 - Obesity, unspecified, E78.5 - Hyperlipidemia, unspecified, F41.9 - Anxiety disorder, unspecified, G47.30 - Sleep apnea, unspecified, I10 - Essential (primary) hypertension ECG 12 lead EKG Today E11.9 - Type 2 diabetes mellitus without complications, E66.9 - Obesity, unspecified, E78.5 - Hyperlipidemia, unspecified, F41.9 - Anxiety disorder, unspecified, G47.30 - Sleep apnea, unspecified, I10 - Essential (primary) hypertension FL upper GI w air Today E11.9 - Type 2 diabetes mellitus without complications, E66.9 - Obesity, unspecified, E78.5 - Hyperlipidemia, unspecified, F41.9 - Anxiety disorder, unspecified, G47.30 - Sleep apnea, unspecified, I10 - Essential (primary) hypertension Referrals Nutrition/Dietitian Referral E11.9 - Type 2 diabetes mellitus without complications, E66.9 - Obesity, unspecified, E78.5 - Hyperlipidemia, unspecified, F41.9 - Anxiety disorder, unspecified, G47.30 - Sleep apnea, unspecified, I10 - Essential (primary) hypertension Behavioral Health Referral E11.9 - Type 2 diabetes mellitus without complications, E66.9 - Obesity, unspecified, E78.5 - Hyperlipidemia, unspecified, F41.9 - Anxiety disorder, unspecified, G47.30 - Sleep apnea, unspecified, I10 - Essential (primary) hypertension Telehealth Telehealth Location of provider rendering services: practice address Location of patient: address on file Patient Identification confirmed using: Name, : Yes Telehealth method: voice only Patient verbally consented to treatment: Yes Patient verbally consented to billing insurance company: Yes Patient informed of any privacy concerns related to visit: Yes Minutes spent on Phone/Video with Pt.: 51 Coding Level of Care Code Tele [facility] Pt Level 4 (48338) Diagnoses Class 2 severe obesity due to excess calories with serious comorbidity and body mass index (BMI) of 39.0 to 39.9 in adult E66.01; Z68.39 Obesity type: due to excess calories Obesity classification: adult class 2 (BMI 35 - 39.9) Serious obesity comorbidity presence: with serious comorbidity Body mass index: BMI 39.0-39.9 Time Spent (min) 51
[2023-12-21 09:31] VITALS: BMI 39.4
== END 2023-12-21 10:02 | disposition home or self-care (01) ==
LOC: HO.HBS 08:03
PROVIDERS: PCP Internal Medicine; Visit Provider Surgery
DX: E66.01 Morbid (severe) obesity due to excess calories (principal); Z68.39 Body mass index [BMI] 39.0-39.9, adult
CPT/HCPCS: 99443

== ENCOUNTER → 2023-12-21 08:03 | Outpatient (BNVA) | payer OTHER, SELFPAY | PROVIDERS: PCP Internal Medicine; Visit Provider Surgery ==

== ENCOUNTER 2023-12-28 09:43 | Outpatient (REF) | payer OTHER, SELFPAY ==
--- NOTE | ~2023-12-28 | XR_ITS ---
EXAMINATION: XR CHEST CLINICAL INFORMATION: Obesity unspecified. COMPARISON: None available. TECHNIQUE: 2 views of the chest were obtained. FINDINGS: Lung volumes are low. There is no gross pneumothorax. Heart size is normal. No focal consolidation to suggest pneumonia. Mild rightward curvature of the thoracic spine with multilevel degenerative changes. XR/XR chest 2V IMPRESSION: No evidence of pneumonia.
[2023-12-28 09:55] LABS: MANUAL DIFF FLAG NO
[2023-12-28 10:06] LABS: Basophils Absolute Auto 0.1 X10*3/uL (0.0-0.2); Basophils Percent Auto 0.8 % (0-2); Eosinophils Absolute Auto 0.2 X10*3/uL (0.0-0.4); Eosinophils Percent Auto 3.3 % (0-4); Hematocrit 44.6 % (42.0-52.0); Hemoglobin 15.3 g/dl (14.0-18.0); Imm Gran Abs Auto 0.02 X10*3/uL (0.00-0.03); Imm Gran Pct Auto 0.3 % (0.0-0.4); Lymphocytes Absolute Auto 1.5 X10*3/uL (1.2-4.9); Lymphocytes Percent Auto 20.8 % (20-40); Mean Corpuscular HGB Conc 34.3 g/dl (31.0-36.0); Mean Corpuscular Hemoglobin 29.8 pg (27.0-33.0); Mean Corpuscular Volume 86.8 fL (80.0-98.0); Mean Platelet Volume 10.1 fL (9.4-12.4); Monocytes Absolute Auto 0.8 X10*3/uL (0.1-1.2); Monocytes Percent Auto 10.8 % (2-11); Neutrophils Absolute Auto 4.6 x10*3/uL (2.0-8.3); Platelet Count 212 X10*3/uL (160-400); Red Blood Count 5.14 X10*6/uL (4.60-5.80); Red Cell Distribution Width 13.7 % (11.0-16.0); White Blood Count 7.2 X10*3/uL (4.8-10.8)
--- NOTE | 2023-12-28 10:13 | ECG_ITS ---
Test Reason : E66.09 Blood Pressure : / mmHG Vent. Rate : 069 BPM Atrial Rate : 069 BPM P-R Int : 204 ms QRS Dur : 104 ms QT Int : 424 ms P-R-T Axes : 047 -07 047 degrees QTc Int : 454 ms Normal sinus rhythm Normal ECG When compared with ECG of 09-DEC-2022 14:13, No significant change was found Referred By: Reece Valdez Electronically Signed By:Preet Frost
[2023-12-28 10:14] LABS: Estimated Average Glucose 105 mg/dL; Hemoglobin A1c % 5.3 % (<6.0)
[2023-12-28 10:59] LABS: Alanine Aminotransferase 19 U/L (0-40); Albumin Level 4.4 g/dL (3.5-5.0); Alkaline Phosphatase 74 U/L (39-117); Anion Gap 11 (12-20); Aspartate Amino Transferase 17 U/L (5-37); Bilirubin Total 1.1 mg/dL (0.0-1.0); Blood Urea Nitrogen 19 mg/dL (9-16); C Reactive Protein 0.29 mg/dL (< or = 0.50); Calcium 9.3 mg/dL (8.4-10.2); Carbon Dioxide 25 mmol/L (22-29); Chloride 108 mmol/L (96-108); Cholesterol 115 mg/dL (<200); Estimated Glomerular Filt Rate > 60; Glucose Random 88 mg/dL (60-115); HDL Cholesterol 33 mg/dL (>40); Iron 96 mcg/dL (45-160); LDL Cholesterol Calculated 68 mg/dL (<100); Percent Iron Saturation 36 % (15-50); Potassium 3.8 mmol/L (3.3-5.1); Sodium 140 mmol/L (135-145); Total Iron Binding Capacity 267 mcg/dL (228-428); Total Protein 7.1 g/dL (6.5-8.0); Triglycerides 71 mg/dL (<150); Unsaturated Iron Binding 171 ug/dL
[2023-12-28 11:15] LABS: Ferritin 52 ng/mL (20-250); Insulin 5 uU/mL (2-29); TSH reflex Free T4 0.72 uIU/mL (0.32-4.0); Vitamin D 25-OH Total 35.9 ng/mL (>30)
[2023-12-28 11:24] LABS: Folate > 20.0 ng/mL (> or = 4.0); Vitamin B12 1547 pg/mL (200-900)
[2023-12-31 00:43] LABS: Vitamin A 48 mcg/dL (38-98)
[2023-12-31 01:37] LABS: Zinc 81 mcg/dL (60-130)
[2024-01-04 15:18] LABS: Vitamin B1 202 nmol/L (8-30)
== END 2023-12-28 09:44 | disposition home or self-care (01) ==
LOC: HO.LAB 09:43
PROVIDERS: PCP Internal Medicine; Visit Provider Surgery
DX: E66.9 Obesity, unspecified (principal); F41.9 Anxiety disorder, unspecified; E78.5 Hyperlipidemia, unspecified; I10 Essential (primary) hypertension; G47.30 Sleep apnea, unspecified; E11.9 Type 2 diabetes mellitus without complications
CPT/HCPCS: 36415; 71046; 80053; 80061; 82306; 82607; 82728; 82746; 83036; 83525; 83540; 84425; 84443; 84590; 84630; 85025; 86140; 93005

== ENCOUNTER → 2023-12-28 10:13 | Outpatient (BNV) | payer OTHER, SELFPAY | PROVIDERS: PCP Internal Medicine; Visit Provider Internal Medicine Cardiovascular Disease | DX: E66.09 Other obesity due to excess calories (principal); Z01.810 Encounter for preprocedural cardiovascular examination | CPT/HCPCS: 93010 ==

== ENCOUNTER 2024-01-05 13:00 | Outpatient (RCR) | payer OTHER, SELFPAY ==
--- NOTE | 2023-12-17 16:31 | MHC.OT.DC ---
[address] [phone] F: [phone] Occupational Therapy Discharge Note Patient Name: Dane Calles Provider: Brittany Saldana Diagnosis: (B) OA of the hands Date of Surgery: Date of Evaluation: 12/17/23 Date of Discharge: Treatments to Date: 1 Cancellations to Date: No Shows to Date: Discharge Status: Discharge Summary: Please see OT eval Electronically Signed By: LEXI Cameron/Nathan, CLT Reviewed/agree with student documentation: Therapist: Please Sign and return to therapist, thank you for your referral.
--- NOTE | 2024-01-05 13:30 | MHC.OT.DC ---
[address] [phone] F: [phone] Occupational Therapy Discharge Note Patient Name: Dane Pat Provider: Brittany Saldana Diagnosis: (B) OA of the hands Date of Evaluation: 12/17/23 Date of Discharge: 01/05/24 Treatments to Date: 5 Discharge Status: Achieved Goals Improved Function Independent with HEP Discharge Summary: MR PAT HAS BEEN MOTIVATED AND ENGAGED IN HIS OT RX SESSIONS. ALL OT GOALS MET. HAS BEEN PAINFREE AND DENIES LIMITATIONS IN DAILY ACTIVITIES. IND WITH HEP. Pt INTERESTED IN PURCHASING HOME PARAFFIN UNIT AND COMPRESSION GLOVES FOR PAIN MANAGEMENT. NO FURTHER OT WARRANTED AT THIS TIME - READY FOR TRANSITION TO A HOME BASED PROGRAM. Electronically Signed By: NOVA FARLEY OTR/Nathan Reviewed/agree with student documentation: N/A Therapist: Please Sign and return to therapist, thank you for your referral.
== END 2024-01-05 13:30 | disposition home or self-care (01) ==
LOC: HO.OT 13:00
PROVIDERS: PCP Internal Medicine; Visit Provider Internal Medicine
DX: M19.041 Primary osteoarthritis, right hand (principal); M19.042 Primary osteoarthritis, left hand
CPT/HCPCS: 97110; 97165

== ENCOUNTER 2024-01-07 08:07 | Outpatient (AMB) | payer OTHER, SELFPAY ==
--- NOTE | 2024-01-07 11:05 | A.OFFVIS_ITS ---
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 Allergies Penicillins Allergy (Verified 12/21/23 09:16) Unknown HPI TV Follow Up SWL - 1ST HPI Details Start time: 10.59am, End time: 11.19am ?I spent 15 minutes speaking with the patient on the phone plus an additional 5 minutes reviewing and updating records for a total of 20 minutes HPI Comments History of Present Illness Details Overall weight loss: 8.6lbs, or 3.87% TBWL Is doing 2 Isopure Infusions protein shakes (1/2 scoop in 8oz water), 2.5 Zone Perfect protein bars and a meal PFSH Medical History (Updated 12/21/23 @ 09:34 by Reece Valdez MD) DJD (degenerative joint disease) Von Recklinghausen disease GERD (gastroesophageal reflux disease) Anxiety Hyperlipidemia Insomnia Sleep apnea with use of continuous positive airway pressure (CPAP) Obesity Depression ADD (attention deficit disorder) Colon polyp Microscopic hematuria HTN (hypertension) AA (alcohol abuse) BPH (benign prostatic hyperplasia) Surgical History Hx of tonsillectomy H/O bilateral inguinal hernia repair H/O umbilical hernia repair H/O colonoscopy Family History Mother Throat cancer Paternal Aunt Colon cancer Paternal Grandfather Prostate cancer Social History Alcohol intake: former Patient Tobacco Use Status: Former Tobacco user Assessment & Plan Assessment & Plan (1) Obesity: Code(s): E66.9 - Obesity, unspecified Qualifiers: Obesity type: due to excess calories Obesity classification: adult class 2 (BMI 35 - 39.9) Serious obesity comorbidity presence: with serious comorbidity Body mass index: BMI 39.0-39.9 Qualified Code(s): E66.01 - Morbid (severe) obesity due to excess calories; Z68.39 - Body mass index [BMI] 39.0- 39.9, adult Plan: 1. Continue same nutritional plan of 2 Isopure Infusions protein shakes (1/2 scoop in 8oz water), 2.5 Zone Perfect protein bars and a meal (12 forks of protein and 12 forks of salad or vegetables or salad) 2. Continue to send me weight measurements weekly on Wednesdays Orders: Orders ECG 3 day holter monitor Today R00.0 - Tachycardia, unspecified Telehealth Telehealth Location of provider rendering services: practice address Location of patient: address on file Patient Identification confirmed using: Name, : Yes Telehealth method: voice only Patient verbally consented to treatment: Yes Patient verbally consented to billing insurance company: Yes Patient informed of any privacy concerns related to visit: Yes Minutes spent on Phone/Video with Pt.: 20 Coding Level of Care Code Tele Est Pt Level 3 (05854) Diagnoses Class 2 severe obesity due to excess calories with serious comorbidity and body mass index (BMI) of 39.0 to 39.9 in adult E66.01; Z68.39 Obesity type: due to excess calories Obesity classification: adult class 2 (BMI 35 - 39.9) Serious obesity comorbidity presence: with serious comorbidity Body mass index: BMI 39.0-39.9 Time Spent (min) 20
[2024-01-07 11:14] VITALS: BMI 37.8
== END 2024-01-07 11:19 | disposition home or self-care (01) ==
LOC: HO.HBS 08:08
PROVIDERS: PCP Internal Medicine; Visit Provider Surgery
DX: E66.01 Morbid (severe) obesity due to excess calories (principal); Z68.39 Body mass index [BMI] 39.0-39.9, adult
CPT/HCPCS: 99442

== ENCOUNTER → 2024-01-07 08:07 | Outpatient (BNVA) | payer OTHER, SELFPAY | PROVIDERS: PCP Internal Medicine; Visit Provider Surgery ==

== ENCOUNTER 2024-01-14 12:11 | Outpatient (AMB) | payer OTHER, SELFPAY ==
--- NOTE | 2024-01-14 12:03 | A.OFFVIS_ITS ---
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 Is not being treated for anything, goes to get out of the house and socialize. Prior to program, he was eating all meals at the facility ([address] in [place]). Meals served are usually pancakes with syrup, or high carb lunches. Now, he makes shakes and brings them to program. is also doing the protein bars and OK with them. He states he is doing really well, no questions or concerns today. Exercise: 30 minute classes 5x per week, SWL online calsses: none yet. Has the information to access them Dietary counseling reduction Who prepares/cooks your food self Meal frequency regular: breakfast and lunch, irregular: snacks and never: dinner Diagnosis Nutrition problem #1 overweight/obesity As related to (etiology) #1 excess energy intake and physical inactivity As evidenced by (sign/symptom) #1 high BMI Monitoring/Goals Nutrition problem monitoring total energy intake, level of knowledge/skill, total PRO intake, total CHO intake and weight Outcome progress progressing Learning/Education Readiness to learn good Stages of change action Most Recent Diabetes Results: Cholesterol 115 mg/dL (<200) 12/28/23 HDL Cholesterol 33 mg/dL (>40) L 12/28/23 Triglycerides 71 mg/dL (<150) 12/28/23 Creatinine 1.02 mg/dL (0.5-1.4) 12/28/23 Blood Urea Nitrogen 19 mg/dL (9-16) H 12/28/23 Sodium 140 mmol/L (135-145) 12/28/23 Potassium 3.8 mmol/L (3.3-5.1) 12/28/23 Chloride 108 mmol/L (96-108) 12/28/23 Carbon Dioxide 25 mmol/L (22-29) 12/28/23 Calcium 9.3 mg/dL (8.4-10.2) 12/28/23 AST 17 U/L (5-37) 12/28/23 ALT 19 U/L (0-40) 12/28/23 Total Protein 7.1 g/dL (6.5-8.0) 12/28/23 Albumin 4.4 g/dL (3.5-5.0) 12/28/23 [facility] Medical History (Updated 12/21/23 @ 09:34 by Reece Valdez MD) DJD (degenerative joint disease) Von Recklinghausen disease GERD (gastroesophageal reflux disease) Anxiety Hyperlipidemia Insomnia Sleep apnea with use of continuous positive airway pressure (CPAP) Obesity Depression ADD (attention deficit disorder) Colon polyp Microscopic hematuria HTN (hypertension) AA (alcohol abuse) BPH (benign prostatic hyperplasia) Surgical History Hx of tonsillectomy H/O bilateral inguinal hernia repair H/O umbilical hernia repair H/O colonoscopy Family History Mother Throat cancer Paternal Aunt Colon cancer Paternal Grandfather Prostate cancer Social History Alcohol intake: former Patient Tobacco Use Status: Former Tobacco user Assessment & Plan Assessment & Plan (1) Obesity (BMI 30-39.9): Code(s): E66.9 - Obesity, unspecified Plan seems to be doing very well in the program. will be seen again when online classes are completed. Telehealth Telehealth Location of provider rendering services: other (home address, [facility] ) Location of patient: address on file Patient Identification confirmed using: Name, : Yes Telehealth method: voice only Patient verbally consented to treatment: Yes Patient verbally consented to billing insurance company: Yes Patient informed of any privacy concerns related to visit: Yes Minutes spent on Phone/Video with Pt.: 20 Coding Level of Care Code Nutr Indiv Intake (71257) Diagnoses Obesity (BMI 30-39.9) E66.9 Time Spent (min) 20
[2024-01-14 12:10] VITALS: BMI 36.5
== END 2024-01-14 12:38 | disposition home or self-care (01) ==
LOC: HO.HBS 12:11
PROVIDERS: PCP Internal Medicine; Visit Provider Dietitian, Registered
DX: E66.9 Obesity, unspecified (principal)

== ENCOUNTER → 2024-01-14 12:11 | Outpatient (BNVA) | payer OTHER, SELFPAY | PROVIDERS: PCP Internal Medicine; Visit Provider Dietitian, Registered | DX: E66.9 Obesity, unspecified (principal); Z68.36 Body mass index [BMI] 36.0-36.9, adult | CPT/HCPCS: 97802 ==

== ENCOUNTER → 2024-01-17 12:44 | Outpatient (REF) | payer OTHER, SELFPAY ==
--- NOTE | 2024-01-17 12:48 | HM_ITS ---
Conclusion: 1. Patient was monitored for total period of 2 days and 20 hours 2. Baseline was normal sinus rhythm with average heart of 64 beats per minute 3. No significant pauses noted 4. Frequent PACs noted with total burden of 3.8%, mostly isolated 5. Patient reported 3 events of dizziness correlating with sinus rhythm with PACs MTDD
== END ==
LOC: HO.CARD 12:44
PROVIDERS: PCP Internal Medicine; Visit Provider Surgery
DX: R00.0 Tachycardia, unspecified (principal); I49.1 Atrial premature depolarization
CPT/HCPCS: 93242

== ENCOUNTER → 2024-01-17 12:48 | Outpatient (BNV) | payer OTHER, SELFPAY | PROVIDERS: PCP Internal Medicine; Visit Provider Internal Medicine Cardiovascular Disease | DX: I49.1 Atrial premature depolarization (principal) | CPT/HCPCS: 93244 ==

== ENCOUNTER 2024-01-18 08:26 | Outpatient (REF) | payer OTHER, SELFPAY ==
--- NOTE | ~2024-01-18 | US_ITS ---
EXAMINATION: US COMPLETE ABDOMEN WITH LIVER ELASTOGRAPHY CLINICAL INFORMATION: Obesity. COMPARISON: None available. TECHNIQUE: Real-time imaging of the abdominal viscera. Noninvasive ultrasound liver fibrosis assessment is performed using Tye ElastPQ point quantification shear wave elastography (2D-SWE) with a C5-2 MHz transducer. Multiple elastography samples are obtained. FINDINGS: PANCREAS: Limited. The visualized pancreatic head and body are normal in appearance. The remainder of the pancreas is obscured from visualization by the overlying bowel gas. ABDOMINAL AORTA: The proximal and distal aortic segments are normal in caliber. The mid segment is obscured by overlapping bowel gas. INFERIOR VENA CAVA: Visualized portions are normal. LIVER: Normal. The liver demonstrates normal size, contour and echogenicity. No focal lesion or intrahepatic biliary duct dilatation. The right lobe measures 12.0 cm in length. The left lobe measures 8.2 cm in length. Portal flow is towards the liver (hepatopetal). Shear wave liver elastography median stiffness is 1.25 m/s (reference: normal median stiffness is 1.3 m/s or less). IQR/median stiffness to assess sampling precision is 0.14 (reference: good quality data set is IQR/median stiffness of 0.15 or less). GALLBLADDER: Normal. The gallbladder is physiologically distended without evidence of stones, sludge, polyps, wall thickening or pericholecystic fluid. COMMON BILE DUCT: Normal in caliber measuring 0.4 cm in diameter. RIGHT KIDNEY: Normal. No hydronephrosis. No renal calculi or focal parenchymal lesions. The kidney measures 11.0 cm in maximum dimension. LEFT KIDNEY: There is mild pelviectasis, without micheal hydronephrosis. No renal calculi or focal parenchymal lesions. The kidney measures 12.5 cm in maximum dimension. SPLEEN: Normal. The spleen measures 11.1 cm in maximum dimension. FREE FLUID: None. US/US abdomen comp w elastography IMPRESSION: Liver elastography: Measurements are consistent with a high probability of normal liver stiffness. REFERENCE: Society of Radiologists in Ultrasound Liver Stiffness Thresholds (2020): LIVER STIFFNESS THRESHOLDS: *Liver Stiffness equal or less than 1.3 m/s: High probability of being normal. *Liver Stiffness less than 1.7 m/s: In the absence of other known clinical signs, rules out compensated advanced chronic liver disease. *Liver Stiffness 1.7-2.1 m/s: Suggestive of compensated advanced chronic liver disease but need further test for confirmation. *Liver Stiffness over 2.1 m/s: Rules in compensated advanced chronic liver disease. *Liver Stiffness over 2.4 m/s: Suggestive of clinically significant portal hypertension. QUALITY OF DATA SET: *IQR/Median value equal or less than 0.15 implies a quality data set. *IQR/Median value over 0.15 implies a poor quality data set. SIGNIFICANT CHANGE FROM PRIOR EXAM: Significant change if liver stiffness measurement is 10% or greater from prior exam. OTHER CONSIDERATIONS: The stage of liver fibrosis may be overestimated in the setting of acute hepatitis, liver inflammation, elevated liver function tests, hepatic vascular congestion, obstructive cholestasis, non-fasting state, and infiltrative diseases such as amyloidosis and lymphoma. In some patients with NAFLD, the liver stiffness thresholds for compensated advanced chronic liver disease may be lower. In causes other than viral hepatitis and NAFLD, liver stiffness thresholds are not well established.
== END 2024-01-18 08:27 | disposition home or self-care (01) ==
LOC: HO.US 08:26
PROVIDERS: PCP Internal Medicine; Visit Provider Surgery
DX: E66.9 Obesity, unspecified (principal); F41.9 Anxiety disorder, unspecified; E78.5 Hyperlipidemia, unspecified; I10 Essential (primary) hypertension; G47.30 Sleep apnea, unspecified; E11.9 Type 2 diabetes mellitus without complications
CPT/HCPCS: 76700; 76981

== ENCOUNTER 2024-01-24 16:07 | Outpatient (AMB) | payer OTHER, SELFPAY ==
--- NOTE | 2024-01-24 15:36 | A.OFFWM_ITS ---
Intake Intake Visit Reasons: VIDEO Intake Allergies Penicillins Allergy (Verified 12/21/23 09:16) Unknown [facility] Medical History (Updated 01/24/24 @ 16:05 by Celia Gonzalez) DJD (degenerative joint disease) Von Recklinghausen disease GERD (gastroesophageal reflux disease) Anxiety Hyperlipidemia Insomnia Sleep apnea with use of continuous positive airway pressure (CPAP) Obesity Depression ADD (attention deficit disorder) Colon polyp Microscopic hematuria HTN (hypertension) AA (alcohol abuse) BPH (benign prostatic hyperplasia) Surgical History Hx of tonsillectomy H/O bilateral inguinal hernia repair H/O umbilical hernia repair H/O colonoscopy Family History Mother Throat cancer Paternal Aunt Colon cancer Paternal Grandfather Prostate cancer Social History Alcohol intake: former Patient Tobacco Use Status: Former Tobacco user Behavioral Health Assessment Weight Management Therapy Therapy Notes Details Pt is looking to have weight loss surgery to help improve his health and quality of life. He stated that he is tired of being fat, looking down and seeing my stomach . Pt was in counseling at [facility] [facility] [employer] but then was told he no longer works there. His social services coordinator at his day program is helping to get him another therapist. Pt is two years and ten days sober from alcohol, attends recovery program at [facility]. He stated from 18 to 25 he drank heavily, then after he got , he would come home from work and would drink a pint of whiskey every evening. January 13 2022 he was admitted in to a detox program for one month. Pt also has a nurse practitioner who prescribes his medications. Presenting Concerns Referral Source provider Reason for referral weight loss surgery evaluation Precipitating Event obesity Living Situation Current Living Situation Own At risk of losing current housing? No Satisfied with current living situation? Yes Comments Pt lives with his and they rent the home from his son. 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 After he stopped drinking, he started eating large quantities of sugar, he could eat an entire box of ring dings. History/Relationship with weight Pt stated that he has been struggling with his weight for many years. History/Relationship with dieting He reported being on a few diets in the past Binge Eating Do you frequently eat large amounts of food in short periods of time, not feeling physically hungry? Yes Do you feel out of control when you eat a large amount of food in a short period of time? No Do you eat large amounts of food rapidly and typically alone? Yes Night Eating Do you wake up at least once during the night to eat? No If you wake up in the night, do you find that it is necessary to eat something in order to fall back asleep? Yes Do you have little or no appetite in the morning and feel very hungry in the evening, often overeating between dinner and when you go to bed? 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 no current legal issues Education Preferred learning style Auditory, Verbal, Written, Learn by doing and Visual Currently enrolled in educational program? No Interested in further educational program? 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 Financial Situation Describe current financial situation Occasional struggle Financial assistance? SSDI Service Service? No Mental Health and Addiction Treatment Current/Past substance abuse? Yes Comments Patient is in recovery from alcohol. He started drinking at age 15. After he retired on disability a few years ago, he started to drink even more. He went into to detox due to not being able to do it on his own, he would get the shakes . Current/Past addictive behavior concerns? No Medical and Physical Health Summary Physical exam in the last year? Yes Pain Screening Current pain? No Pain in the last few months? No Medications Is the patient compliant with medications? Yes Does the patient have Escobar Guardian in place? Not applicable Does the patient use complimentary health approaches? No Questionnaires PHQ-9 Over the last 2 weeks, how often have you been bothered by any of the following problems? 1. Little interest or pleasure in doing things: nearly every day 2. Feeling down, depressed, or hopeless: more than half the days 3. Trouble falling or staying asleep, or sleeping too much: several days 4. Feeling tired or having little energy: not at all 5. Poor appetite or overeating: several days 6. Feeling bad about yourself - or that you are a failure or have let yourself or your family down: more than half the days 7. Trouble concentrating on things, such as reading the newspaper or watching television: several days 8. Moving or speaking so slowly that other people could have noticed. Or the opposite - being so fidgety or restless that you have been moving around a lot more than usual: not at all 9. Thoughts that you would be better off or of hurting yourself in some way: not at all Total score: 10 Source: Developed by Drs. Steven Pantoja, Lisa Alejandre, Sunday Mckeon and colleagues, with an educational abelardo from [employer]. Binge Eating Scale Group 1 A. I don't feel self-conscious about my wt. or body size when I'm with others. B. I feel concerned about how I look to others, but it normally does not make me fell disappointed with myself C. I do get self-conscious about my appearance and wt. which makes me feel disappointed in myself. D. I feel very self-conscious about my wt. and frequently I feel intense shame and disgust for myself. I try to avoid social contacts because of my self- consciousness. Response Group 1: C Group 2 A. I don't have any difficulty eating slowly in the proper manner. B. Although I seem to gobble down foods, I don't end up feeling stuffed because of eating to much. C. At times, I tend to eat quickly and then, I feel uncomfortably full afterwards. D. I have the habit of bolting down my food, without really chewing it. When this happens I usually feel uncomfortably stuffed because I've eaten to much. Response Group 2: B Group 3 A. I feel capable to control my eating urges when I want to. B. I feel like I have failed to control my eating more than the average person. C. I feel utterly helpless when it comes to feeling in control of my eating urges. D. Because I feel so helpless about controlling my eating I have become very desperate about trying to get control. Response Group 3: B Group 4 A. I don't have the habit of eating when I'm bored. B. I sometimes eat when I'm bored, but often I'm able to get busy and get my mind off food. C. I have a regular habit of eating when I'm bored, but occasionally, I can use some other activity to get my mind off eating. D. I have a strong habit of eating when I'm bored. Nothing seems to help me breath the habit. Response Group 4: D Group 5 A. I'm usually physically hungry when I eat something. B. Occasionally, I eat something on impulse even though I really am not hungry. C. I have the regular habit of eating foods, that I might not really enjoy, to satisfy a hungry feeling even though physically, I don't need the food. D. Although I'm not physically hungry, I get a hungry feeling in my mouth that only seems to be satisfied when I eat a food, like sandwich, that fills my mouth. Sometimes, when I eat the food to satisfy my mouth hunger, I then spit the food out so I won't gain weight. Response Group 5: C Group 6 A. I don't feel any guilt or self-hate after I overeat. B. After I overeat, occasionally I feel guilt or self-hate. C. Almost all the time I experience strong guilt or self-hate after I overeat. Response Group 6: A Group 7 A. I don't lose total control of my eating when dieting even after periods when I overeat. B. Sometimes when I eat a forbidden food on a diet, I feel like I blew it and eat even more. C. Frequently, I have the habit of saying to myself, I've blown it now, why not go all the way, when I overeat on a diet. When that happens I eat more. D. I have a regular habit of starting a strict diets for myself but I break the diets by going on an eating binge. My life seems to be either a feast or famine. Response Group 7: C Group 8 A. I rarely eat so much food that I feel uncomfortably stuffed afterwards. B. Usually about once a month, I each such a quantity of food, I end up feeling very stuffed. C. I have regular periods during the month when I eat large amounts of food, either at mealtime or at snacks. D. I eat so much food that I regularly feel quite uncomfortable after eating and sometimes a bit nauseous. Response Group 8: C Group 9 A. My level of calorie intake does not go up very high or go down very low on a regular basis. B. Sometimes after I overeat, I will try to reduce my caloric intake to almost nothing to compensate for the excess calories I've eaten. C. I have a regular habit of overeating during the night. It seems that my routine is not to be hungry in the morning but overeat in the evening. D. In my adult years, I have had week-long periods where I practically starve myself. This follows periods when I overeat. It seems I live a life of either feast or famine. Response Group 9: C Group 10 A. I usually am able to stop eating when I want to. I know when enough is enough. B. Every so often, I experience a compulsion to eat which I can't seem to control. C. Frequently, I experience strong urges to eat which I seem unable to control, but at other times I can control my eating urges. D. I feel incapable of controlling urges to eat. I have a fear of not being able to stop eating voluntarily. Response Group 10: D Group 11 A. I don't have any problem stopping eating when I feel full. B. I usually can stop eating when I feel full but occasionally overeat leaving me feeling uncomfortably stuffed. C. I have a problem stopping eating once I start and usually I feel uncomfortably stuffed after I eat a meal. D. Because I have a problem not being able to stop eating when I want, I sometimes have to induce vomiting to relieve my stuffed feeling. Response Group 11: B Group 12 A. I seem to eat just as much when I'm with others, Family social gatherings as when I'm by myself. B. Sometimes, when I'm with other persons, I don't eat as much as I want to eat because I'm self-conscious about my eating. C. Frequently, I eat only a small amount of food when others are present, because I'm very embarrassed about my eating. D. I feel so ashamed about overeating that I pick times to overeat when I know no one will see me. I feel like a closet eater. Response Group 12: D Group 13 A. I eat three meals a day with only an occasional between meal snack. B. I eat 3 meals a day, but I also normally snack between meals. C. When I am snacking heavily, I get in the habit of skipping regular meals. D. There are regular periods when I seem to be continually eating, with no planned meals. Response Group 13: D Group 14 A. I don't think much about trying to control unwanted eating urges. B. At least some of the time, I feel my thoughts are pre-occupied with trying to control my eating urges. C. I feel that frequently I spend much time thinking about how much I ate or about trying not to eat anymore. D. It seems to me that most of my waking hours are pre-occupied by thoughts about eating or not eating. I feel like I'm constantly struggling not to eat. Response Group 14: A Group 15 A. I don't think about food a great deal. B. I have strong craving for food but they last only for brief periods of time. C. I have days when I can't seem to think about anything else but food. D. Most of my days seem to be pre-occupied with thoughts about food. I feel like I live to eat. Response Group 15: B Group 16 A. I usually know whether or not I'm physically hungry. I take the right portion of food to satisfy me. B. Occasionally, I feel uncertain about knowing whether or not I'm physically hungry. A these times it's hard to know how much food I should take to satisfy me. C. Even though I might know how many calories I should eat, I don't have any idea what is a normal amount of food for me. Response Group 16: B Binge Eating Score: 27 Score less than 17 Minimal Risk Score between 18-26 Moderate Risk Score between 27-46 High Risk Assessment & Plan Assessment & Plan (1) Depression: Code(s): F32.A - Depression, unspecified (2) Insomnia: Code(s): G47.00 - Insomnia, unspecified (3) Alcohol use disorder, severe, in sustained remission: Code(s): F10.21 - Alcohol dependence, in remission Plan Pt is two years sober from 50 plus years of heavy alcohol use. He is doing well, attends day program and has professional supports. He was offered additional support since he lost his therapist. Narendra will be seen again. Telehealth Telehealth Location of provider rendering services: practice address Location of patient: address on file Patient Identification confirmed using: Name, : Yes Telehealth method: voice only Patient verbally consented to treatment: Yes Patient verbally consented to billing insurance company: Yes Patient informed of any privacy concerns related to visit: Yes Minutes spent on Phone/Video with Pt.: 45 Coding Level of Care Code Tele Psy Diag Eval (07767) Diagnoses Depression F32.A Insomnia G47.00 Alcohol use disorder, severe, in sustained remission F10.21 Time Spent (min) 45
== END 2024-01-24 16:15 | disposition home or self-care (01) ==
LOC: HO.HBST 16:08
PROVIDERS: PCP Internal Medicine; Visit Provider Counselor Mental Health
DX: F32.A Depression, unspecified (principal); G47.00 Insomnia, unspecified; F10.21 Alcohol dependence, in remission
CPT/HCPCS: 90791

== ENCOUNTER → 2024-01-24 16:07 | Outpatient (BNVA) | payer OTHER, SELFPAY | PROVIDERS: PCP Internal Medicine; Visit Provider Counselor Mental Health ==

== ENCOUNTER 2024-02-02 10:04 | Day surgery (SDC) | payer OTHER, SELFPAY ==
--- NOTE | 2024-02-01 10:55 | HO.ANESPROP2 ---
Documented by User: Rosita He NP 02/01/24 10:56 HPI - Anesthesia Eval Consult details Narrative: 69yo M for Upper Endoscopy LE and truncal edema followed by [facility]. Advanced pneumatic compression device? COUNTS INCLUDE 234 BEDS AT THE [facility] Active Problems Active Problems: All Active Problems (Updated 01/24/24 @ 16:05 by Celia Gonzalez) Alcohol use disorder, severe, in sustained remission (Acute) DJD (degenerative joint disease) (Acute) Von Recklinghausen disease (Acute) BPH (benign prostatic hyperplasia) (Acute) GERD (gastroesophageal reflux disease) (Acute) Anxiety (Acute) Depression (Acute) Hyperlipidemia (Acute) HTN (hypertension) (Acute) Insomnia (Acute) Sleep apnea with use of continuous positive airway pressure (CPAP) (Acute) BMI 39.0-39.9,adult (Acute) Obesity (Acute) Lymphedema (Acute) Varicose veins of left lower extremity with inflammation (Acute) Vertigo (Acute) AA (alcohol abuse) (Acute) Pre-op examination (Acute) Tubular adenoma of colon (Acute) Bursitis of left hip (Acute) Cervical lymphadenopathy (Acute) Neurofibromatosis (Acute) Varicose veins of ankle (Acute) Chronic fatigue (Acute) Diabetes (Acute) Erectile dysfunction (Acute) Weak urinary stream (Acute) Incomplete emptying of bladder due to benign prostatic hyperplasia (Acute) BPH w urinary obs/LUTS (Acute) Past Medical History Medical History DJD (degenerative joint disease) Von Recklinghausen disease GERD (gastroesophageal reflux disease) Anxiety Hyperlipidemia Insomnia Sleep apnea with use of continuous positive airway pressure (CPAP) Obesity Depression ADD (attention deficit disorder) Colon polyp Microscopic hematuria HTN (hypertension) AA (alcohol abuse) BPH (benign prostatic hyperplasia) Family History Family History Mother Throat cancer Paternal Aunt Colon cancer Paternal Grandfather Prostate cancer Surgical History Surgical History Hx of tonsillectomy H/O bilateral inguinal hernia repair H/O umbilical hernia repair H/O colonoscopy Social History Social History Alcohol intake: former Patient Tobacco Use Status: Former Tobacco user Quit Date: 1977 Use of substances other than those prescribed or required for medical reasons: No Substance Use Type Other:: No ETOH x 2 years Are you DNR?: No Advance Directives: No Advance Directives Information Provided: Yes Meds Allergies Allergy/AdvReac Type Severity Reaction Status Date / Time Penicillins Allergy Unknown Verified 12/21/23 09:16 Home Medications Medication Instructions Recorded Confirmed Last Taken Type atorvastatin 20 mg tablet 20 mg PO DAILY 05/29/22 12/21/23 12/08/22 History clonidine HCl 0.1 mg tablet 0.1 mg PO BID 05/29/22 12/21/23 12/08/22 History cyanocobalamin (vitamin B-12) 1,000 mcg PO QAM 05/29/22 12/21/23 12/08/22 History 1,000 mcg tablet felodipine 10 mg tablet,extended 10 mg PO DAILY 05/29/22 12/21/23 12/08/22 History release 24 hr folic acid 1 mg tablet 1 mg PO QAM 05/29/22 12/21/23 12/08/22 History furosemide 20 mg tablet 20 mg PO DAILY 05/29/22 12/21/23 12/08/22 History lisinopril 10 mg tablet 10 mg PO DAILY 05/29/22 12/21/23 12/08/22 History melatonin 5 mg tablet 5 mg PO BEDTIME 05/29/22 12/21/23 12/08/22 History dkhqyifi-wky-kwlss acid 0.4 1 tab PO QAM 05/29/22 12/21/23 12/08/22 History mg-lycopene 300 mcg-lutein 250 mcg tablet (Cerovite Senior) omeprazole 40 mg capsule,delayed 40 mg PO DAILY 05/29/22 12/21/23 12/08/22 History release trazodone 100 mg tablet 100 mg PO BEDTIME 05/29/22 12/21/23 12/08/22 History gabapentin 300 mg capsule 1 cap PO TID 12/09/22 12/21/23 12/09/22 History lancets 33 gauge (OneTouch [employer] #100 ea 01/22/23 12/21/23 Unknown History Plus Lancet) bupropion HCl 300 mg 24 hr tablet, 300 mg PO DAILY 09/30/23 12/21/23 Unknown History extended release cyanocobalamin (vitamin B-12) 1,000 mcg PO DAILY 09/30/23 12/21/23 Unknown History 1,000 mcg capsule docusate sodium 100 mg capsule 100 mg PO BID 09/30/23 12/21/23 Unknown History fluticasone propionate 50 spray intranasal 09/30/23 12/21/23 Unknown History mcg/actuation nasal spray,suspension methylphenidate HCl 27 mg 27 mg PO DAILY 12/14/23 12/21/23 Unknown History tablet,extended release 24 hr (Concerta) albuterol sulfate 90 mcg/actuation 2 puff inhalation Q6H PRN 12/21/23 12/21/23 Unknown History aerosol inhaler Exam Narrative Narrative: EKG 2023 Vent. Rate : 069 BPM Atrial Rate : 069 BPM P-R Int : 204 ms QRS Dur : 104 ms QT Int : 424 ms P-R-T Axes : 047 -07 047 degrees QTc Int : 454 ms Normal sinus rhythm Normal ECG When compared with ECG of 09-DEC-2022 14:13, No significant change was found Holter 2023 Conclusion: 1. Patient was monitored for total period of 2 days and 20 hours 2. Baseline was normal sinus rhythm with average heart of 64 beats per minute 3. No significant pauses noted 4. Frequent PACs noted with total burden of 3.8%, mostly isolated 5. Patient reported 3 events of dizziness correlating with sinus rhythm with PACs Assessment and Plan Assessment Anesthesia Assessment: Chart Reviewed Documented by User: Destiny Coronel MD 02/02/24 13:15 COUNTS INCLUDE 234 BEDS AT THE [facility] Past Medical History Medical History DJD (degenerative joint disease) Von Recklinghausen disease GERD (gastroesophageal reflux disease) Anxiety Hyperlipidemia Insomnia Sleep apnea with use of continuous positive airway pressure (CPAP) Obesity Depression ADD (attention deficit disorder) Colon polyp Microscopic hematuria HTN (hypertension) AA (alcohol abuse) BPH (benign prostatic hyperplasia) Family History Family History Mother Throat cancer Paternal Aunt Colon cancer Paternal Grandfather Prostate cancer Family history of problems with anesthesia: No Surgical History Surgical History Hx of tonsillectomy H/O bilateral inguinal hernia repair H/O umbilical hernia repair H/O colonoscopy History of Problems with Anesthesia: No Social History Social History Alcohol intake: former Patient Tobacco Use Status: Former Tobacco user Quit Date: 1977 Use of substances other than those prescribed or required for medical reasons: No Substance Use Type Other:: No ETOH x 2 years Are you DNR?: No Advance Directives: No Advance Directives Information Provided: Yes Meds Allergies Allergy/AdvReac Type Severity Reaction Status Date / Time Penicillins Allergy Unknown Verified 12/21/23 09:16 Home Medications Medication Instructions Recorded Confirmed Last Taken Type atorvastatin 20 mg tablet 20 mg PO DAILY 05/29/22 12/21/23 12/08/22 History clonidine HCl 0.1 mg tablet 0.1 mg PO BID 05/29/22 12/21/23 12/08/22 History cyanocobalamin (vitamin B-12) 1,000 mcg PO QAM 05/29/22 12/21/23 12/08/22 History 1,000 mcg tablet felodipine 10 mg tablet,extended 10 mg PO DAILY 05/29/22 12/21/23 12/08/22 History release 24 hr folic acid 1 mg tablet 1 mg PO QAM 05/29/22 12/21/23 12/08/22 History furosemide 20 mg tablet 20 mg PO DAILY 05/29/22 12/21/23 12/08/22 History lisinopril 10 mg tablet 10 mg PO DAILY 05/29/22 12/21/23 12/08/22 History melatonin 5 mg tablet 5 mg PO BEDTIME 05/29/22 12/21/23 12/08/22 History auwnndjr-rur-iepae acid 0.4 1 tab PO QAM 05/29/22 12/21/23 12/08/22 History mg-lycopene 300 mcg-lutein 250 mcg tablet (Cerovite Senior) omeprazole 40 mg capsule,delayed 40 mg PO DAILY 05/29/22 12/21/23 12/08/22 History release trazodone 100 mg tablet 100 mg PO BEDTIME 05/29/22 12/21/23 12/08/22 History gabapentin 300 mg capsule 1 cap PO TID 12/09/22 12/21/23 12/09/22 History lancets 33 gauge ([employer] #100 ea 01/22/23 12/21/23 Unknown History Plus Lancet) bupropion HCl 300 mg 24 hr tablet, 300 mg PO DAILY 09/30/23 12/21/23 Unknown History extended release cyanocobalamin (vitamin B-12) 1,000 mcg PO DAILY 09/30/23 12/21/23 Unknown History 1,000 mcg capsule docusate sodium 100 mg capsule 100 mg PO BID 09/30/23 12/21/23 Unknown History fluticasone propionate 50 spray intranasal 09/30/23 12/21/23 Unknown History mcg/actuation nasal spray,suspension methylphenidate HCl 27 mg 27 mg PO DAILY 12/14/23 12/21/23 Unknown History tablet,extended release 24 hr (Concerta) albuterol sulfate 90 mcg/actuation 2 puff inhalation Q6H PRN 12/21/23 12/21/23 Unknown History aerosol inhaler Exam Airway Mallampati Class: II TM Dist: >3cm Neck ROM: Full Assessment and Plan Assessment Anesthesia Assessment: Anesthesia Plan Discussed Final Anesthetic Review Family History of Problems with Anesthesia: No History of Problems with Anesthesia: No NPO: Yes ASA Class: III Final Preanesthetic Review: No Changes in Pt Med Stat, Meds/Allgs Chart Reviewed, Consent Obtained/Reviewed and Anes Risks/Benef Reviewed Patient Risk: Intermediate Procedure Risk: Low Anesthetic Plan Anesthetic Plan: TIVA Disposition: Standard PACU
[2024-02-02 12:37] VITALS: BMI 36.4
[2024-02-02 13:07] VITALS: BP 126/55; PULSE 75; RESP 20; TEMP 36.7; O2SAT 95
[2024-02-02] MEDS: Lactated Ringers 1,000 ML 100 ML IVCONT (13:12)
--- NOTE | 2024-02-02 13:12 | MHC.SHP ---
Pre-Procedural Eval Section A - 24 Hr Update-Section A only Date of Service: 02/02/24 The patient is an INPATIENT: No The patient has been examined within 24 hours of the surgical procedure. The History & Physical has been completed within 30 days and I have reviewed it.: No Section B - Complete if H&P > 30 days Chief Complaint: Morbid (severe) obesity due to excess calories Details of Present Illness: GERD Relevant Family History (Specify if Yes): No Relevant Social History: None Present Medications: None Medical History: No relevant PMH History of Previous Operations: No relevant previous surgery Allergies: Allergies Allergy/AdvReac Type Severity Reaction Status Date / Time Penicillins Allergy Unknown Verified 12/21/23 09:16 Review of Systems Sugical H&P ROS: Negative: Constitution, Cardiovascular, Respiratory, Neurological, Psychiatric, Hem-Onc, Allergic/Immunologic, Gastrointestinal, Genitourinary, Musculoskeletal, Integumentary, Endocrine and Eyes/Ears/Nose/Throat Exam Surgical H&P Exam: Normal: HEENT, Normal: Heart, Normal: Lungs, Normal: Extremities, Normal: Abdomen, Normal: Skin and Normal: Neurological Plan Diagnosis/Plan: Unchanged (EGD to assess etiology of GERD. Risks of bleeding and perforation were discussed with the patient and he is in agreement with the plan.) I have reviewed the history and physical and performed a pertinent physical examination on my patient. No changes have occurred unless specified. Time Spent With Patient Time: Total time managing care of this patient today ____ minutes.
--- NOTE | 2024-02-02 13:13 | P.BOP_ITS ---
Brief Operative Note Date of Service: 02/02/24 Pre-op diagnosis: GERD Post-op diagnosis: same (Hiatal hernia and esophagitis I) Procedure: PROCEDURE DATE: 02/02/2024 PREOPERATIVE DIAGNOSIS: GERD POSTOPERATIVE DIAGNOSIS: ?Same as above. 1) small hiatal hernia, 2) Esophagitis grade I PROCEDURE: Uyltezjm-dfqeuq-vzggsmtnczlb with biopsies Surgeon: ?Jeff Valdez M.D.. Ph.D. Sales And Service Technician: None ? Anesthesia: IV sedation Estimated blood loss: ?Minimal FINDINGS AND PROCEDURE: ? OPERATIVE INDICATIONS: ?The patient is a 69 year old male known to me who is interested in bariatric surgery. The patient has GERD. Based on this information I recommended an upper endoscopy to evaluate the patient's symptoms. Risks and complications of the surgery were discussed with the patient in advance particularly the possibility of perforation or bleeding that may require surgical intervention. The patient understood the risks and was in agreement with the plan. ? PROCEDURE: After informed consent was obtained by the patient, the patient was ?transferred to the Operating Room and was placed in the supine position.? After successful induction of IV sedation, a mouth block was inserted and the patient was placed in the left lateral decubitus position. An upper endoscopy was performed next, the oropharynx and esophagus appeared within the normal limits. There was a small 3cm hiatal hernia. The z-line was irregular with tongues of gastric mucosa protruding into the esophagus in less than 25% circumference. Two biopsies were obtained from the distal esophagus 2-3 cm proximal to the GE junction and two additional biopsies from the GE junction. The stomach was entered and it appeared to be of normal size. There was no gastritis. There was no stricture or ulcer. A biopsy was obtained from the fundus and antrum. No significant bleeding was noted from any of the biopsy sites. Retroflexion confirmed the presence of the diaphragmatic hernia. The scope was then advanced into the duodenum which appeared to be normal as well. At that point the duodenum ?and the stomach were decompressed and the scope was withdrawn from the patient's mouth. The patient extubated and was transferred in stable condition to the Recovery Room for further care. I was present and performed all steps of the procedure. There were no residents to assist with this case. Jeff Valdez M.D., Ph.D. Surgeon: Reece Valdez MD Anesthesia: MAC Was an Sales And Service Technician used for this Procedure?: No Estimated blood loss (mL): 0 IV fluids (mL): 400 Urine output (mL): 0 Pathology: other (1) antrumx1, 2) fundusx1, 3) GE junctionx2, 4) distal esophagusx2)
[2024-02-02 13:45] VITALS: BP 101/70; PULSE 62; RESP 16; TEMP 36.2; O2SAT 93
[2024-02-02 14:00] VITALS: BP 111/57; PULSE 63; RESP 16; TEMP 36.2; O2SAT 96
== END 2024-02-02 14:40 | disposition home or self-care (01) ==
PROVIDERS: PCP Internal Medicine; Visit Provider Surgery
PROC: 0DJ08ZZ Inspection of Upper Intestinal Tract, Via Natural or Artificial Opening Endoscopic (ICD-10-PCS; CPT 43235; principal; 2024-02-02 12:30)
DX: K21.9 Gastro-esophageal reflux disease without esophagitis (principal); K22.89 Other specified disease of esophagus; K20.80 Other esophagitis without bleeding; K44.9 Diaphragmatic hernia without obstruction or gangrene; E66.01 Morbid (severe) obesity due to excess calories; Z68.39 Body mass index [BMI] 39.0-39.9, adult; Q85.01 Neurofibromatosis, type 1; I10 Essential (primary) hypertension; E78.5 Hyperlipidemia, unspecified; F32.A Depression, unspecified; F10.11 Alcohol abuse, in remission; G47.33 Obstructive sleep apnea (adult) (pediatric); Z99.89 Dependence on other enabling machines and devices; Z79.51 Long term (current) use of inhaled steroids; Z79.899 Other long term (current) drug therapy; Z88.0 Allergy status to penicillin; Z98.890 Other specified postprocedural states; Z87.891 Personal history of nicotine dependence
CPT/HCPCS: 43239; 88305; 88313; 88342; J2250; J2704

== ENCOUNTER → 2024-02-02 10:04 | Outpatient (BNV) | payer OTHER, SELFPAY | PROVIDERS: PCP Internal Medicine; Visit Provider Surgery | DX: K21.00 Gastro-esophageal reflux disease with esophagitis, without bleeding (principal) | CPT/HCPCS: 43239 ==

== ENCOUNTER 2024-02-07 08:18 | Outpatient (AMB) | payer OTHER, SELFPAY ==
--- NOTE | 2024-02-07 12:15 | MHC.OFFVISWM ---
Intake VS Expanded 02/07/24 12:27 Height 5 ft 3 in Weight 200 lb 2 oz BMI 35.4 Body Fat % 38 Body Fat Mass 76 Fat Free Mass 124.2 Visceral Fat Rating 17 Body Water % 44.8 Body Water Mass 89.6 Basal Metabolic Rate/Score 1,586 Intake Visit Reasons: TV Follow Up SWL Allergies Penicillins Allergy (Verified 12/21/23 09:16) Unknown HPI TV Follow Up SWL HPI Details Start time: 12.07pm, End time: 12.33pm ?I spent 25 minutes speaking with the patient on the phone plus an additional 5 minutes reviewing and updating records for a total of 30 minutes HPI Comments History of Present Illness Details Overall weight loss: 22.2lbs, or 9.98% TBWL Is doing 2 Isopure Infusions protein shakes (1/2 scoop in 8oz water), 2.5 Zone Perfect protein bars meal (6 forks of protein and 6 forks of salad or vegetables) Exercise: you tube exercises PFSH Medical History DJD (degenerative joint disease) Von Recklinghausen disease GERD (gastroesophageal reflux disease) Anxiety Hyperlipidemia Insomnia Sleep apnea with use of continuous positive airway pressure (CPAP) Obesity Depression ADD (attention deficit disorder) Colon polyp Microscopic hematuria HTN (hypertension) AA (alcohol abuse) BPH (benign prostatic hyperplasia) Surgical History Hx of tonsillectomy H/O bilateral inguinal hernia repair H/O umbilical hernia repair H/O colonoscopy Family History Mother Throat cancer Paternal Aunt Colon cancer Paternal Grandfather Prostate cancer Social History Alcohol intake: former Patient Tobacco Use Status: Former Tobacco user Quit Date: quit 1977 Assessment & Plan Assessment & Plan (1) Obesity: Code(s): E66.9 - Obesity, unspecified Qualifiers: Obesity type: due to excess calories Obesity classification: adult class 2 (BMI 35 - 39.9) Serious obesity comorbidity presence: with serious comorbidity Body mass index: BMI 39.0-39.9 Qualified Code(s): E66.01 - Morbid (severe) obesity due to excess calories; Z68.39 - Body mass index [BMI] 39.0-39.9, adult Plan: 1. Plan for lap sleeve gastrectomy including upper GI endoscopy. All tests has been completed and reviewed and the patient is cleared for the surgery. ?If diaphragmatic or ventral hernias are present at time of surgery, these will be repaired laparoscopically as well. Risks and complications were discussed in detail including possible conversion to an open procedure, anastomotic leak, bleeding requiring transfusion, small bowel obstruction, , DVT and pulmonary embolism, cardiac, or pulmonary complications, as manager terminal complications such as anastomotic ulcer, insufficient weight loss and vitamin deficiencies. I emphasized the importance of close follow-up, adherence to instructions and good communication. So far she has proven to be an excellent communicator and very compliant with all our directions accomplishing a great weight loss. I believe that she is an excellent candidate and she is ready. 2. The patient participated in a structured preoperative lifestyle intervention program supervised by a physician the 6 months preceding the surgical procedure. The lifestyle intervention included a structured nutritional plan with a specific daily protein intake goal, an exercise plan with a 2000 calorie burn weekly goal, weekly behavior modification guidance and completion of eight 1-hour online nutritional classes and passing successfully the corresponding quizzes. Adherence to preoperative care plan was demonstrated by completing an extensive preoperative work-up. Program participation was demonstrated by completing 4 visits with our medical team and by sharing weekly weight measurements weekly for 6 consecutive weeks via an approved body composition scale. Compliance to the lifestyle intervention was demonstrated by achieving a 22.2lbs weight-loss or 10% total body weight loss (TBWL). No medications were used to achieve this weight loss. In our published experience an over 7% preoperative TBWL, achieved by meeting the diet and exercise goals of our program improves surgical outcomes, reduces the potential for surgical complications, and predicts a statistically significant higher weight loss up to 6 years postoperatively. 3. Continue same nutritional plan of 2 Isopure Infusions protein shakes (1/2 scoop in 8oz water), 2.5 Zone Perfect protein bars meal (6 forks of protein and 6 forks of salad or vegetables) 4. . Start treadmill with an incline of 0.0 and speed of 2.5. Increase incline by 1 every 3 min to a max incline of 6.0, stay 3min at 6.0 and then return to 0.0 and repeat same steps until calorie goal is met. Goal is to burn 2000 calories per week on exercise, which means either 300 calories daily, or 400 calories 5 days per week, or 500 calories 4 days per week, or 650 calories 3 days per week. 5. Continue to send me weight measurements weekly on Wednesdays Telehealth Telehealth Location of provider rendering services: practice address Location of patient: address on file Patient Identification confirmed using: Name, : Yes Telehealth method: voice only Patient verbally consented to treatment: Yes Patient verbally consented to billing insurance company: Yes Patient informed of any privacy concerns related to visit: Yes Minutes spent on Phone/Video with Pt.: 26 Coding Level of Care Code Est Pt Level 3 (39882) Diagnoses Class 2 severe obesity due to excess calories with serious comorbidity and body mass index (BMI) of 39.0 to 39.9 in adult E66.01; Z68.39 Obesity type: due to excess calories Obesity classification: adult class 2 (BMI 35 - 39.9) Serious obesity comorbidity presence: with serious comorbidity Body mass index: BMI 39.0-39.9 Time Spent (min) 26
[2024-02-07 12:27] VITALS: BMI 35.4
== END 2024-02-07 12:34 | disposition home or self-care (01) ==
LOC: HO.HBS 08:18
PROVIDERS: PCP Internal Medicine; Visit Provider Surgery
DX: E66.01 Morbid (severe) obesity due to excess calories (principal); Z68.39 Body mass index [BMI] 39.0-39.9, adult
CPT/HCPCS: 99213

== ENCOUNTER → 2024-02-07 08:18 | Outpatient (BNVA) | payer OTHER, SELFPAY | PROVIDERS: PCP Internal Medicine; Visit Provider Surgery | DX: E66.01 Morbid (severe) obesity due to excess calories (principal); Z68.35 Body mass index [BMI] 35.0-35.9, adult | CPT/HCPCS: 99212 ==

== ENCOUNTER 2024-02-15 15:46 | Outpatient (AMB) | payer OTHER, SELFPAY ==
--- NOTE | 2024-02-15 15:43 | MHC.WMTHER ---
Intake Intake Visit Reasons: (TV) BH F/U Allergies Penicillins Allergy (Verified 12/21/23 09:16) Unknown [facility] Medical History DJD (degenerative joint disease) Von Recklinghausen disease GERD (gastroesophageal reflux disease) Anxiety Hyperlipidemia Insomnia Sleep apnea with use of continuous positive airway pressure (CPAP) Obesity Depression ADD (attention deficit disorder) Colon polyp Microscopic hematuria HTN (hypertension) AA (alcohol abuse) BPH (benign prostatic hyperplasia) Surgical History Hx of tonsillectomy H/O bilateral inguinal hernia repair H/O umbilical hernia repair H/O colonoscopy Family History Mother Throat cancer Paternal Aunt Colon cancer Paternal Grandfather Prostate cancer Social History Alcohol intake: former Patient Tobacco Use Status: Former Tobacco user Quit Date: 1977 Behavioral Health Assessment Weight Management Therapy Therapy Notes Details He reported doing well, conflicted about surgery, still following the plan, waiting for his intake with a new therapist later this month. Pt is looking to have weight loss surgery to help improve his health and quality of life. He stated that he is tired of being fat, looking down and seeing my stomach . Pt was in counseling at [facility] with [employer] but then was told he no longer works there. His social services counselor at his day program is helping to get him another therapist. Pt is two years and ten days sober from alcohol, attends recovery program at [facility]. He stated from 18 to he drank heavily, then after he got , he would come home from work and would drink a pint of whiskey every evening. January 13 2022 he was admitted in to a detox program for one month. Pt also has a nurse practitioner who prescribes his medications. Presenting Concerns Referral Source provider Reason for referral weight loss surgery evaluation Precipitating Event obesity Living Situation Current Living Situation Own At risk of losing current housing? No Satisfied with current living situation? Yes Comments Pt lives with his and they rent the home from his son. 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 After he stopped drinking, he started eating large quantities of sugar, he could eat an entire box of ring dings. History/Relationship with weight Pt stated that he has been struggling with his weight for many years. History/Relationship with dieting He reported being on a few diets in the past Binge Eating Do you frequently eat large amounts of food in short periods of time, not feeling physically hungry? Yes Do you feel out of control when you eat a large amount of food in a short period of time? No Do you eat large amounts of food rapidly and typically alone? Yes Night Eating Do you wake up at least once during the night to eat? No If you wake up in the night, do you find that it is necessary to eat something in order to fall back asleep? Yes Do you have little or no appetite in the morning and feel very hungry in the evening, often overeating between dinner and when you go to bed? No Social History Parental/Familial clipman obligations none Developmental history and status no issues Social support some family support Community support social services counselor, day program, doctor Legal Involvement and History Current or historical involvement with the legal system? no current legal issues Education Preferred learning style Auditory, Verbal, Written, Learn by doing and Visual Currently enrolled in educational program? No Interested in further educational program? 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 Financial Situation Describe current financial situation Occasional struggle Financial assistance? SSDI Service Service? No Mental Health and Addiction Treatment Current/Past substance abuse? Yes Comments Patient is in recovery from alcohol. He started drinking at age 15. After he retired on disability a few years ago, he started to drink even more. He went into to detox due to not being able to do it on his own, he would get the shakes . Current/Past addictive behavior concerns? No Medical and Physical Health Summary Physical exam in the last year? Yes Pain Screening Current pain? No Pain in the last few months? No Medications Is the patient compliant with medications? Yes Does the patient have Escobar Guardian in place? Not applicable Does the patient use complimentary health approaches? No Assessment & Plan Assessment & Plan (1) Depression: Code(s): F32.A - Depression, unspecified (2) Insomnia: Code(s): G47.00 - Insomnia, unspecified (3) Alcohol use disorder, severe, in sustained remission: Code(s): F10.21 - Alcohol dependence, in remission Plan Pt is two years sober from 50 plus years of heavy alcohol use. He is doing well, attends day program and has professional supports. He was offered additional support since he lost his therapist. Pt is cleared for surgery when ready, he should continue with his recovery and supports. Coding Level of Care Code Tele Psytx 30 mins (97181) Diagnoses Depression F32.A Insomnia G47.00 Alcohol use disorder, severe, in sustained remission F10.21 Time Spent (min) 30
== END 2024-02-15 15:56 | disposition home or self-care (01) ==
LOC: HO.HBST 15:46
PROVIDERS: PCP Internal Medicine; Visit Provider Counselor Mental Health
DX: F32.A Depression, unspecified (principal); G47.00 Insomnia, unspecified; F10.21 Alcohol dependence, in remission
CPT/HCPCS: 90832

== ENCOUNTER → 2024-02-15 15:46 | Outpatient (BNVA) | payer OTHER, SELFPAY | PROVIDERS: PCP Internal Medicine; Visit Provider Counselor Mental Health ==

== ENCOUNTER 2024-02-17 08:38 | Outpatient (REF) | payer OTHER, SELFPAY ==
--- NOTE | ~2024-02-17 | FL_ITS ---
EXAMINATION: XR FLUOROSCOPY UPPER GI WITH AIR CLINICAL INFORMATION: Preop evaluation prior to bariatric surgery COMPARISON: None TECHNIQUE: Fluoroscopic air contrast upper GI examination was performed utilizing standard techniques with thin and thick barium and effervescent granules. Numerous spot images were obtained. FINDINGS: Images of the oropharynx and hypopharynx demonstrate normal swallow mechanism with normal epiglottic inversion and soft palate elevation. Early spillover of contrast into the hypopharynx was noted. No tracheal penetration, glottic or subglottic aspiration identified. No nasopharyngeal reflux present. Hypopharyngeal structures appear normal without evidence of mass or diverticulum. There is moderate cricopharyngeal achalasia present (RF1-10; RF 1-1, image 17). This resulted in mild ballooning of the hypopharynx upon swallow. Dual and single contrast images of the esophagus demonstrate normal caliber, contour, and mucosal pattern. No evidence of stricture, mass, or ulcerations identified. There is to and fro motion of the barium column with nonpropulsive tertiary contractions noted throughout the esophagus. Small type I hiatus hernia. No significant gastroesophageal reflux was seen during the course of the examination and on reflux views. Dual contrast and single contrast images of the stomach demonstrated a normal contour. The gastric rugal folds have a mildly thickened appearance. No ulcerations or masses are seen. Contrast freely passed into the gastric antrum and duodenal bulb without delay. Single and air-contrast images of the duodenal bulb demonstrate no abnormality. The duodenal sweep has a normal course, however the mucosal folds episodically appeared thickened, unknown if peristalsis phenomenon or representing duodenal inflammation. The imaged proximal jejunum also demonstrated a prominent fold pattern, similar to the duodenum. This is also unknown if peristalsis phenomenon or represents a proximal enteritis. FLUOROSCOPY TIME: 4 minutes 20 seconds Number of Spot Images: 11 Number of Cine: 11 DOSE AREA PRODUCT: 3813 uGy-m2 (microgray-meter squared) FL/FL upper GI w air IMPRESSION: 1. Moderate cricopharyngeal achalasia. This resulted in mild ballooning of the hypopharynx. No penetration or aspiration appreciated. 2. Persistent early spilling of barium into the inferior hypopharynx. 3. Esophageal dysmotility. Small type I hiatus hernia. 4. Mildly thickened appearance of the gastric rugal folds that may represent gastritis. 5. Mildly thickened appearance of the duodenal and jejunal folds, a finding which could represent sequela of transient peristalsis versus inflammation of these structures. This procedure was performed by Tre Chavarria PA-C, and supervised by Dr. Castellano
== END 2024-02-17 08:39 | disposition home or self-care (01) ==
LOC: HO.XRAY 08:38
PROVIDERS: PCP Internal Medicine; Visit Provider Surgery
DX: E66.9 Obesity, unspecified (principal); E11.9 Type 2 diabetes mellitus without complications
CPT/HCPCS: 74246

== ENCOUNTER → 2024-02-17 08:38 | Outpatient (BNV) | payer OTHER, SELFPAY | PROVIDERS: PCP Internal Medicine; Visit Provider Physician Assistant Surgical | DX: Z01.818 Encounter for other preprocedural examination (principal); E66.9 Obesity, unspecified | CPT/HCPCS: 74246 ==

== ENCOUNTER 2024-03-06 08:31 | Outpatient (AMB) | payer OTHER, SELFPAY ==
--- NOTE | 2024-03-06 11:52 | MHC.OFFVISWM ---
VS Expanded 03/06/24 12:03 Height 5 ft 3 in Weight 191 lb 2 oz BMI 33.9 Body Fat % 35.5 Body Fat Mass 67.8 Fat Free Mass 123.2 Visceral Fat Rating 16 Body Water % 46.6 Body Water Mass 89 Basal Metabolic Rate/Score 1,577 Intake Visit Reasons: TV Pre Op LSG 03/16/24 Allergies Penicillins Allergy (Verified 03/06/24 11:53) Unknown Medication List - Last Reconciled 03/06/24 by Reece Valdez MD albuterol sulfate 90 mcg/actuation 2 puffs inhalation Q6H PRN atorvastatin 20 mg PO DAILY bisacodyl (Dulcolax (bisacodyl)) 10 mg (2 x 5 mg) PO BEDTIME 2 days bupropion HCl XL 300 mg PO DAILY clonidine HCl 0.1 mg PO BID cyanocobalamin (vitamin B-12) 1,000 mcg PO QAM cyanocobalamin (vitamin B-12) 1,000 mcg PO DAILY docusate sodium 100 mg PO BID felodipine ER 10 mg PO DAILY finasteride 5 mg PO DAILY 90 days fluticasone propionate 50 mcg/actuation sprays intranasal folic acid 1 mg PO QAM furosemide 20 mg PO DAILY gabapentin 1 cap PO TID lancets (OneTouch Delica Plus Lancet) As directed lisinopril 10 mg PO DAILY melatonin 5 mg PO BEDTIME methylphenidate HCl ER (Concerta) 27 mg PO DAILY sucflqfv-rir-OS-lycopen-lutein 0.4 mg-300 mcg- 250 mcg (Cerovite Senior) 1 tab PO QAM omeprazole 40 mg PO DAILY ondansetron 4 mg PO Q12H pantoprazole 40 mg PO DAILY peg 3350-electrolytes 236-22.74-6.74 -5.86 gram (Golytely) 240 mL PO Q10M 1 day polyethylene glycol 3350 (Miralax) 17 grams PO DAILY sucralfate 10 mL PO BID tadalafil 10 mg PO DAILY 90 days terazosin 5 mg PO BEDTIME 90 days trazodone 100 mg PO BEDTIME HPI HPI TV Pre Op LSG 03/16/24: Details: Start time: 11.51am, End time: 12.13pm ?I spent 17 minutes speaking with the patient on the phone plus an additional 5 minutes reviewing and updating records for a total of 22 minutes HPI Comments Details: Overall weight loss: 22.2lbs, or 9.98% TBWL Is doing 2 Isopure Infusions protein shakes (1/2 scoop in 8oz water), 2.5 Zone Perfect protein bars meal (6 forks of protein and 6 forks of salad or vegetables) Exercise: doing treadmill or bike PFSH Medical History DJD (degenerative joint disease) Von Recklinghausen disease GERD (gastroesophageal reflux disease) Anxiety Hyperlipidemia Insomnia Sleep apnea with use of continuous positive airway pressure (CPAP) Obesity Depression ADD (attention deficit disorder) Colon polyp Microscopic hematuria HTN (hypertension) AA (alcohol abuse) BPH (benign prostatic hyperplasia) Surgical History Hx of tonsillectomy H/O bilateral inguinal hernia repair H/O umbilical hernia repair H/O colonoscopy Family History Mother Throat cancer Paternal Aunt Colon cancer Paternal Grandfather Prostate cancer Social History Alcohol intake: former Patient Tobacco Use Status: Former Tobacco user Quit Date: 1977 Telehealth Telehealth Telehealth Platform: Telephone Location of provider rendering services: practice address Location of patient: address on file Patient Identification confirmed using: Name, : Yes Telehealth method: voice only Patient verbally consented to treatment: Yes Patient verbally consented to billing insurance company: Yes Patient informed of any privacy concerns related to visit: Yes Minutes spent on Phone/Video with Pt.: 22 Assessment & Plan Assessment & Plan (1) Obesity: Code(s): E66.9 - Obesity, unspecified Category: Medical Qualifiers: Obesity type: due to excess calories Obesity classification: adult class 2 (BMI 35 - 39.9) Serious obesity comorbidity presence: with serious comorbidity Body mass index: BMI 39.0-39.9 Qualified Code(s): E66.01 - Morbid (severe) obesity due to excess calories; Z68.39 - Body mass index [BMI] 39.0-39.9, adult Plan: 1. Plan for lap sleeve gastrectomy including upper GI endoscopy. All tests has been completed and reviewed and the patient is cleared for the surgery. ?If diaphragmatic or ventral hernias are present at time of surgery, these will be repaired laparoscopically as well. Risks and complications were discussed in detail including possible conversion to an open procedure, anastomotic leak, bleeding requiring transfusion, small bowel obstruction, , DVT and pulmonary embolism, cardiac, or pulmonary complications, as senior care complications such as anastomotic ulcer, insufficient weight loss and vitamin deficiencies. I emphasized the importance of close follow-up, adherence to instructions and good communication. So far he has proven to be an excellent communicator and very compliant with all our directions accomplishing a great weight loss. I believe that he is an excellent candidate and he is ready. 2. Preop prescriptions were provided and explained the purpose of each one. Need to be purchased preop. Start Pantoprazole now as you get it from the pharmacy, 1 pill per day. Sucralfate and Zofran are for after surgery as needed. 3. Bowel prep: please do 7 packets ?of Miralax mixing each one with a an 8oz glass of water, crystal light, gatorade zero, or propel ?on 03/14/24 and the same amount on 03/15/24. The Miralax you begin with one packet at a time in 8oz water or crystal light, gatorade zero, or propel ?as early in the day as you can and you do them back to back until you finish them. Continue the protein shakes during? the bowel prep. 4. Needs to purchase 1oz medicine cups . 5. Needs to purchase Children's liquid Tylenol for postop pain control. 6. He needs to stop all the vitamins on 05/20/21. Avoid aspirin, motrin, Advil, Aleve, Ibuprofen, Naproxyn. Tylenol is OK. 7. He needs to purchase the Celebrate 4:1 protein shakes from the hospital's gift shop. 8. Will do basic preop blood work-up any day between Wednesday03/07/24 and Wednesday03/10/24 fasting for 12 hours and is scheduled to see the Anesthesiologist prior to the day of surgery. 9. Importance of adherence to postop folllow-up and recommendations was underscored and he understands that. 10. Stop food and bars as of Wednesday and continue with 4 Isopure protein shakes (HALF scoop EACH in 8oz water) at 8am-10am, 11am-1pm, 2pm-4pm, 5pm-7pm and one more Isopure protein shake with ONE scoop in 8oz water at 8pm-10pm 11. No soups, broths or V8 12. The patient's?medical?history has been reviewed and they are considered low risk for post op DVT and therefore DVT prophylaxis is not considered necessary. Travel after surgery was reviewed. The patient has not disclosed any travel plans during the first 30 days after surgery and they have been advised that within the first 30 days after surgery any bus, plane, train or car travel over 2 hours in duration is contraindicated due to the possibility of developing blood clots from immobility. Any travel, needs to include periods of ambulation of 10 minutes in duration every 2 hours.? Patient was instructed to discuss any plans for travel during this period with their bariatric surgeon.? 13. Use your CPAP daily and bring it to the hospital with your mask 14. Please take at the day of surgery the following medications: only the Felodipine and Lisinopril based on the following parameters: Check your blood pressure daily in the morning. If your blood pressure is: Less than 120/70: take no Lisinopril or Felodipine 121/71 to 135/85: take HALF Lisinopril and HALF Felodipine pill Over 136/86: take the whole Lisinopril and Felodipine pill 15. Absolutely no smoking or vaping, or marijuana until the surgery and for at least the first 4 weeks. Only nicotine patches are allowed. 16. Send me weight measurements on Wednesday03/07/24 and then on 03/16/24, the day of surgery before you go to the hospital. 17. Avoid any steroids by mouth for any reason. Let me know if someone prescribes them to you 18. These instructions supersede anything else you read in the handbook, anything you watched in videos or classes or you were told by any other provider. If there is any conflict, you follow the above instructions and nothing else. Orders: Orders TSH reflex Free T4 Today E66.01 - Morbid (severe) obesity due to excess calories, Z68.39 - Body mass index [BMI] 39.0-39.9, adult Type and Screen Today E66.01 - Morbid (severe) obesity due to excess calories, Z68.39 - Body mass index [BMI] 39.0-39.9, adult Comprehensive Met. Panel Today E66.01 - Morbid (severe) obesity due to excess calories, Z68.39 - Body mass index [BMI] 39.0-39.9, adult Prothrombin Time INR Today E66.01 - Morbid (severe) obesity due to excess calories, Z68.39 - Body mass index [BMI] 39.0-39.9, adult Partial Thromboplastin Time Today E66.01 - Morbid (severe) obesity due to excess calories, Z68.39 - Body mass index [BMI] 39.0-39.9, adult C Reactive Protein Today E66.01 - Morbid (severe) obesity due to excess calories, Z68.39 - Body mass index [BMI] 39.0-39.9, adult Lipid Panel Today E66.01 - Morbid (severe) obesity due to excess calories, Z68.39 - Body mass index [BMI] 39.0-39.9, adult Hemoglobin A1c Today E66.01 - Morbid (severe) obesity due to excess calories, Z68.39 - Body mass index [BMI] 39.0-39.9, adult Complete Blood Count Auto Diff Today E66.01 - Morbid (severe) obesity due to excess calories, Z68.39 - Body mass index [BMI] 39.0-39.9, adult Insulin Today E66.01 - Morbid (severe) obesity due to excess calories, Z68.39 - Body mass index [BMI] 39.0-39.9, adult Medications: New sucralfate 10 mL PO BID 600 mL 2RF K21.9 - Gastro-esophageal reflux disease without esophagitis pantoprazole 40 mg PO DAILY 90 tabs 0RF K21.9 - Gastro-esophageal reflux disease without esophagitis ondansetron Only take one every 12 hours as needed if you have nausea 4 mg PO Q12H 20 tabs 0RF nausea and vomiting R11.0 - Nausea polyethylene glycol 3350 (Miralax) Mix each packet with 8oz of water, Crystal light, or Gatorade zero, or Propel and do 7 packets on 03/14/24 and another 7 packets on 03/15/24 17 grams PO DAILY 14 ea 0RF Z01.818 - Encounter for other preprocedural examination
[2024-03-06 12:03] VITALS: BMI 33.9
== END 2024-03-06 12:14 | disposition home or self-care (01) ==
LOC: HO.HBS 08:31
PROVIDERS: PCP Internal Medicine; Visit Provider Surgery
DX: E66.01 Morbid (severe) obesity due to excess calories (principal); Z68.39 Body mass index [BMI] 39.0-39.9, adult
CPT/HCPCS: 99499

== ENCOUNTER → 2024-03-06 08:31 | Outpatient (BNVA) | payer OTHER, SELFPAY | PROVIDERS: PCP Internal Medicine; Visit Provider Surgery ==

== ENCOUNTER 2024-03-09 12:26 | Emergency (ER) | payer OTHER, SELFPAY ==
[2024-03-09 12:41] VITALS: BP 134/77; PULSE 80; RESP 18; TEMP 36.6; O2SAT 94; BMI 34.5
--- NOTE | 2024-03-09 12:41 | ED_ITS ---
HPI - General Adult General Chief complaint: Recheck/Abnormal Lab/Rx Stated complaint: Abnormal labs - sent by Dr Time Seen by Provider: 03/09/24 19:41 Source: patient, RN notes reviewed and old records reviewed Mode of arrival: ambulatory Limitations: no limitations History of Present Illness HPI narrative: 69-year-old male with past medical history significant for alcohol use disorder in remission, obesity, lymphedema, diabetes, hypertension, BPH, GERD, sleep apnea presents for evaluation of low potassium. Patient is due to have bariatric surgery on 03/16/2024. He reports that he had routine preop labs ordered this morning. His labs are done as he was fasting. He was called to come to the ER as his potassium was low at 2.6 The patient had been taking Lasix but was told to stop this prior to his surgery earlier today. He reports that after his labs were completed he went home and drank the protein shake given to him from bariatric surgery. He has no complaints including chest pain, palpitations He further denies any vomiting, diarrhea. The patient was instructed not to eat or drink anything outside of the protein shakes provided by the bariatric team Related Data Home Medications ?Medication ?Instructions ?Recorded ?Confirmed atorvastatin 20 mg tablet 20 mg PO BEDTIME 05/29/22 03/07/24 clonidine HCl 0.1 mg tablet 0.1 mg PO BEDTIME 05/29/22 03/07/24 felodipine 10 mg tablet,extended 10 mg PO DAILY 05/29/22 03/07/24 release 24 hr folic acid 1 mg tablet 1 mg PO QAM 05/29/22 03/07/24 furosemide 20 mg tablet 10 mg PO DAILY 05/29/22 03/07/24 lisinopril 10 mg tablet 10 mg PO DAILY 05/29/22 03/07/24 melatonin 5 mg tablet 5 mg PO BEDTIME 05/29/22 03/07/24 trazodone 100 mg tablet 200 mg PO BEDTIME 05/29/22 03/07/24 gabapentin 300 mg capsule 1 cap PO BEDTIME 12/09/22 03/07/24 lancets 33 gauge (Justin Torres #100 ea 01/22/23 03/06/24 Plus Lancet) bupropion HCl 300 mg 24 hr tablet, 300 mg PO DAILY 09/30/23 03/07/24 extended release docusate sodium 100 mg capsule 100 mg PO BID 09/30/23 03/07/24 fluticasone propionate 50 1 spray intranasal DAILY 09/30/23 03/07/24 mcg/actuation nasal spray,suspension albuterol sulfate 90 mcg/actuation 2 puff inhalation Q6H PRN 12/21/23 03/07/24 aerosol inhaler Shortness Of Breath Or Wheezing aripiprazole 2 mg tablet 2 mg PO QAM 03/07/24 03/07/24 finasteride 5 mg tablet 5 mg PO BEDTIME 03/07/24 03/07/24 meclizine 25 mg tablet 25 mg PO TID PRN dizziness 03/07/24 03/07/24 methylphenidate HCl 36 mg 36 mg PO QAM 03/07/24 03/07/24 tablet,extended release 24 hr tadalafil 10 mg tablet 10 mg PO BEDTIME sexual activity 03/07/24 03/07/24 Previous Rx's ?Medication ?Instructions ?Recorded terazosin 5 mg capsule 5 mg PO BEDTIME 90 days #90 caps 01/27/24 ondansetron 4 mg disintegrating 4 mg PO Q12H nausea and vomiting 03/06/24 tablet #20 tabs pantoprazole 40 mg tablet,delayed 40 mg PO DAILY #90 tabs 03/06/24 release polyethylene glycol 3350 17 gram 17 g PO DAILY #14 ea 03/06/24 oral powder packet (Miralax) sucralfate 100 mg/mL oral 10 ml PO BID #600 mL 03/06/24 suspension potassium chloride 20 mEq 20 meq PO DAILY #30 tabs 03/09/24 tablet,extended release Allergies Allergy/AdvReac Type Severity Reaction Status Date / Time Penicillins Allergy Unknown Verified 03/09/24 12:43 Review of Systems 2 Constitutional: Constitutional: Denies body ache(s), Denies chills and Denies fever(s) Eyes: Eyes: Denies blurry vision Cardiovascular: Cardiovascular: Denies chest pain and Denies palpitations Gastrointestinal: Gastrointestinal: Denies abdominal pain, Denies nausea and Denies vomiting Musculoskeletal: Musculoskeletal: Denies back pain, Denies numbness and Denies tingling Integumentary/Breasts: Skin/Breast: Denies rash Neurologic: Denies numbness, Denies tingling and Denies paresthesias Endocrine: Endocrine: Denies palpitations [facility] Past Medical History Medical History (Updated 03/09/24 @ 19:51 by Tre Jamison) Atrial fibrillation Osteoarthritis DJD (degenerative joint disease) Von Recklinghausen disease GERD (gastroesophageal reflux disease) Anxiety Hyperlipidemia Insomnia Sleep apnea with use of continuous positive airway pressure (CPAP) Obesity Depression ADD (attention deficit disorder) Colon polyp Microscopic hematuria HTN (hypertension) AA (alcohol abuse) BPH (benign prostatic hyperplasia) Surgical History Hx of tonsillectomy H/O bilateral inguinal hernia repair H/O umbilical hernia repair H/O colonoscopy Family History Family History Mother Throat cancer Paternal Aunt Colon cancer Paternal Grandfather Prostate cancer Social History Social History Are you a primary date night caregiver to a significant other at home: No Do you presently have visiting nurse or other home services: Yes (laundry) Alcohol intake: former Patient Tobacco Use Status: Former Tobacco user Quit Date: 1977 Advance Directives: No Do you have a plan to hurt others: No Plan Physical Exam ED Vital Signs: Vital Signs - 24 hr 03/09/24 12:41 03/09/24 19:55 Temperature 97.9 F 97.6 F Pulse Rate 80 69 Respiratory Rate 18 16 Blood Pressure 134/77 124/88 Pulse Oximetry 94 98 Oxygen Delivery Method Room Air Room Air BMI result Body Mass Index 34.5 Const General: healthy appearing, comfortable, no acute distress, alert and awake Nutritional Appearance: well nourished Orientation/consciousness: patient oriented x3 HENMT Head: Yes normocephalic and Yes atraumatic Eyes Eyelids: Yes eyelids normal Conjunctivae: conjunctivae normal Sclerae: sclerae normal Corneas: corneas normal Pupils: Equal, round and reactive pupils present EOM: EOMs intact bilaterally Neck Neck: Yes full ROM Resp Effort & Inspection: normal respiratory effort, able to speak in complete sentences and not labored Cardio Rate: regular rate Rhythm: regular rhythm GI Inspection: No distended Palpation (GI): Soft to palpation, not firm, nontender, no guarding and not rigid Skin General skin exam: elasticity normal Neuro General: patient oriented x3 Cranial nerves: Yes Equal, round and reactive pupils present and Yes Bilaterally intact EOM present Cognition (Neuro): normal cognition Extrem Other: Moving all extremities well without any obvious deformities Course Course Course Narrative: This is a rapid medical exam: Additional HPI, ROS, PE not included below will be deferred to primary provider. Patient is a 69-year-old male with history of alcohol use disorder in remission, neurofibromatosis, DM, BPH, HTN, GERD presenting to the ED after being called by PCP who told him his potassium was low. States he had labs draw pre-op for a procedure next week. Denies any chest pain or dyspnea. Plan: EKG, repeat BMP Medical Decision Making Medical Decision Making MDM Narrative: 69-year-old male past medical history as documented above presents for evaluation of hypokalemia. Patient's repeat labs in the ER show a normal potassium of 3.4. His hypokalemia was likely multifactorial due to decreased p.o. intake prior to his bariatric surgery as well as furosemide use. The patient was already instructed to stop his furosemide prior to surgery even before he was told he was hypokalemic. I reiterated the importance of discontinuing furosemide/Lasix. He reports that in between his outpatient labs and his ER labs he drank his protein shake which likely also contributed to his potassium being within normal limits on the repeat labs. He will follow-up with his surgeon and primary provider regarding potentially restarting furosemide in the future. The patient denies any GI loss of electrolytes, he has no complaints and vital signs are stable on arrival Differential Diagnosis Differential Diagnoses: The differential diagnosis associated with the presentation includes Hypokalemia Side effect of diuretic GI loss Anorexia Lab Data [facility] Lab Attestation statement: I reviewed the patient's lab results. Hemoglobin hematocrit are within normal limits. Patient's potassium is normal at 3.4. Sodium is normal at 143, chloride is normal at 104. Renal function is also within normal limits. The patient's CO2 is slightly elevated to 32 which is consistent with his known history of sleep apnea 03/09/24 15:05 03/09/24 13:12 Labs: Lab Results 03/09/24 03/09/24 Range/Units 13:12 15:05 WBC 8.0 (4.8-10.8) X10*3/uL RBC 5.03 (4.60-5.80) X10*6/uL Hgb 15.7 (14.0-18.0) g/dl Hct 43.9 (42.0-52.0) % MCV 87.3 (80.0-98.0) fL MCH 31.2 (27.0-33.0) pg MCHC 35.8 (31.0-36.0) g/dl RDW 13.5 (11.0-16.0) % Plt Count 196 (160-400) X10*3/uL MPV 10.1 (9.4-12.4) fL Immature Gran % (Auto) 0.4 (0.0-0.4) % Neut % (Auto) 70.4 (45-73) % Lymph % (Auto) 16.9 L (20-40) % [place] % (Auto) 10.3 (2-11) % Eos % (Auto) 1.6 (0-4) % Baso % (Auto) 0.4 (0-2) % Lymph # (Auto) 1.4 (1.2-4.9) X10*3/uL [place] # (Auto) 0.8 (0.1-1.2) X10*3/uL Eos # (Auto) 0.1 (0.0-0.4) X10*3/uL Baso # (Auto) 0.0 (0.0-0.2) X10*3/uL Abs Immat Gran (auto) 0.03 (0.00-0.03) X10*3/uL Absolute Neuts (auto) 5.7 (2.0-8.3) x10*3/uL Absolute Nucleated RBC 0.000 (0.0-0.012) X10*3/uL Nucleated RBC % (auto) 0.0 (0.0-0.2) /100WBC Sodium 143 (135-145) mmol/L Potassium 3.4 D (3.3-5.1) mmol/L Chloride 104 (96-108) mmol/L Carbon Dioxide 32 H (22-29) mmol/L Anion Gap 10 L (12-20) BUN 15 (9-16) mg/dL Creatinine 0.73 (0.5-1.4) mg/dL Estim Creat Clear Calc 96.5 Estimated GFR > 60 Random Glucose 94 (60-115) mg/dL Calcium 9.0 (8.4-10.2) mg/dL Troponin I High Sens < 2.7 (<3.5-35.0) ng/L Independent Interpretation I performed an independent interpretation of an: EKG (Normal sinus rhythm with a rate of 72 beats per minute. No ST segment elevations or depressions.) Discharge Plan Discharge Clinical Impression: Acute hypokalemia Patient Disposition: Home, Self-Care Instructions: Hypokalemia (ED) Additional Instructions: Your potassium on your outpatient labs this morning was low. The repeat lab work this afternoon showed her potassium was within normal limits Given that you were already told to stop your Lasix, I do not feel is appropriate to start you on potassium supplementation. Lasix was likely the cause of your low potassium Follow-up with your primary doctor and your surgeon. Return for any new symptoms that you may experience Prescriptions: No Action terazosin 5 mg capsule 5 mg PO BEDTIME 90 Days Qty: 90 2RF potassium chloride 20 mEq tablet extended release 20 meq PO DAILY Qty: 30 1RF gabapentin 300 mg capsule 1 cap PO BEDTIME finasteride 5 mg tablet 5 mg PO BEDTIME tadalafil 10 mg tablet 10 mg PO BEDTIME meclizine 25 mg tablet 25 mg PO TID PRN (Reason: dizziness) methylphenidate HCl 36 mg tablet extended release 24hr 36 mg PO QAM aripiprazole 2 mg tablet 2 mg PO QAM melatonin 5 mg tablet 5 mg PO BEDTIME furosemide 20 mg tablet 10 mg PO DAILY folic acid 1 mg tablet 1 mg PO QAM felodipine 10 mg tablet extended release 24 hr 10 mg PO DAILY lisinopril 10 mg tablet 10 mg PO DAILY trazodone 100 mg tablet 200 mg PO BEDTIME atorvastatin 20 mg tablet 20 mg PO BEDTIME clonidine HCl 0.1 mg tablet 0.1 mg PO BEDTIME (DME) lancets [OneTouch Delica Plus Lancet] 33 gauge misc See Rx Instructions .ROUTE BID Qty: 100 Rx Instructions: As directed albuterol sulfate 90 mcg/actuation HFA aerosol inhaler 2 puff inhalation Q6H PRN (Reason: Shortness Of Breath Or Wheezing) bupropion HCl 300 mg tablet extended release 24 hr 300 mg PO DAILY docusate sodium 100 mg capsule 100 mg PO BID fluticasone propionate 50 mcg/actuation spray,suspension 1 spray intranasal DAILY pantoprazole 40 mg tablet,delayed release (DR/EC) 40 mg PO DAILY Qty: 90 0RF sucralfate 100 mg/mL suspension 10 ml PO BID Qty: 600 2RF ondansetron 4 mg tablet,disintegrating 4 mg PO Q12H Qty: 20 0RF Rx Instructions: Only take one every 12 hours as needed if you have nausea polyethylene glycol 3350 [Miralax] 17 gram powder in packet 17 g PO DAILY Qty: 14 0RF Rx Instructions: Mix each packet with 8oz of water, Crystal light, or Gatorade zero, or Propel and do 7 packets on 03/14/24 and another 7 packets on 03/15/24 Interventions: ED Discharge Assessment Last Done: 03/09/24 19:55 Discharge Date/Time: 03/09/24 19:57 Print Language: Frisian
--- NOTE | 2024-03-09 12:44 | ECG_ITS ---
Test Reason : ABNORMAL K Blood Pressure : / mmHG Vent. Rate : 072 BPM Atrial Rate : 072 BPM P-R Int : 180 ms QRS Dur : 114 ms QT Int : 410 ms P-R-T Axes : 001 -26 030 degrees QTc Int : 448 ms Normal sinus rhythm Moderate voltage criteria for LVH, may be normal variant ( R in aVL , Michael product ) Cannot rule out Anterior infarct , age undetermined Abnormal ECG When compared with ECG of 28-DEC-2023 10:19, Nonspecific T wave abnormality now evident in Inferior leads Referred By: Mable Loera Electronically Signed By:QUANG THAYER MD
[2024-03-09 13:34] LABS: Anion Gap 10 (12-20); Blood Urea Nitrogen 15 mg/dL (9-16); Carbon Dioxide 32 mmol/L (22-29); Chloride 104 mmol/L (96-108); Creatinine Clr Calc Pharmacy 96.5; Estimated Glomerular Filt Rate > 60; Glucose Random 94 mg/dL (60-115); Potassium 3.4 mmol/L (3.3-5.1); Sodium 143 mmol/L (135-145)
[2024-03-09 15:11] LABS: MANUAL DIFF FLAG NO
[2024-03-09 15:13] LABS: Basophils Percent Auto 0.4 % (0-2); Eosinophils Absolute Auto 0.1 X10*3/uL (0.0-0.4); Eosinophils Percent Auto 1.6 % (0-4); Hematocrit 43.9 % (42.0-52.0); Hemoglobin 15.7 g/dl (14.0-18.0); Imm Gran Abs Auto 0.03 X10*3/uL (0.00-0.03); Imm Gran Pct Auto 0.4 % (0.0-0.4); Lymphocytes Absolute Auto 1.4 X10*3/uL (1.2-4.9); Lymphocytes Percent Auto 16.9 % (20-40); Mean Corpuscular HGB Conc 35.8 g/dl (31.0-36.0); Mean Corpuscular Hemoglobin 31.2 pg (27.0-33.0); Mean Corpuscular Volume 87.3 fL (80.0-98.0); Mean Platelet Volume 10.1 fL (9.4-12.4); Monocytes Absolute Auto 0.8 X10*3/uL (0.1-1.2); Monocytes Percent Auto 10.3 % (2-11); Neutrophils Absolute Auto 5.7 x10*3/uL (2.0-8.3); Neutrophils Percent Auto 70.4 % (45-73); Platelet Count 196 X10*3/uL (160-400); Red Blood Count 5.03 X10*6/uL (4.60-5.80); Red Cell Distribution Width 13.5 % (11.0-16.0)
[2024-03-09 15:38] LABS: Troponin-I High Sensitivity < 2.7 ng/L (<3.5-35.0)
[2024-03-09 19:55] VITALS: BP 124/88; PULSE 69; RESP 16; TEMP 36.4; O2SAT 98
--- NOTE | 2024-03-09 19:56 | MHC.EDTECH ---
nurse discharge patient before vitals taken ,rn acls roberto pickering .
== END 2024-03-09 19:57 | disposition home or self-care (01) ==
PROVIDERS: Registered Nurse Emergency; Emergency Provider Emergency Medicine; PCP Internal Medicine
DX: E87.6 Hypokalemia (principal); R94.31 Abnormal electrocardiogram [ECG] [EKG]; Z98.84 Bariatric surgery status; Z79.899 Other long term (current) drug therapy; Z87.891 Personal history of nicotine dependence
CPT/HCPCS: 36415; 80048; 84484; 85025; 93005; 99283

== ENCOUNTER → 2024-03-09 12:44 | Outpatient (BNV) | payer OTHER, SELFPAY | PROVIDERS: PCP Internal Medicine; Visit Provider Internal Medicine Cardiovascular Disease | DX: R94.31 Abnormal electrocardiogram [ECG] [EKG] (principal) | CPT/HCPCS: 93010 ==

== ENCOUNTER → 2024-03-13 12:03 | Outpatient (BNV) | payer OTHER, SELFPAY | PROVIDERS: Admitting Provider Surgery; PCP Internal Medicine; Visit Provider Internal Medicine | DX: Z01.810 Encounter for preprocedural cardiovascular examination (principal); E66.01 Morbid (severe) obesity due to excess calories | CPT/HCPCS: 93010 ==

== ENCOUNTER → 2024-03-14 11:24 | Outpatient (BNVA) | payer OTHER, SELFPAY | PROVIDERS: PCP Internal Medicine; Visit Provider Surgery ==

== ENCOUNTER 2024-03-16 06:01 | Inpatient (IN) | payer OTHER, SELFPAY ==
[2024-03-07 12:05] VITALS: BMI 33.8
[2024-03-09 09:56] LABS: MANUAL DIFF FLAG NO
[2024-03-09 10:09] LABS: Basophils Percent Auto 0.4 % (0-2); Eosinophils Absolute Auto 0.2 X10*3/uL (0.0-0.4); Eosinophils Percent Auto 2.2 % (0-4); Hematocrit 44.7 % (42.0-52.0); Hemoglobin 15.6 g/dl (14.0-18.0); Imm Gran Abs Auto 0.03 X10*3/uL (0.00-0.03); Imm Gran Pct Auto 0.4 % (0.0-0.4); Lymphocytes Absolute Auto 1.2 X10*3/uL (1.2-4.9); Lymphocytes Percent Auto 18.2 % (20-40); Mean Corpuscular HGB Conc 34.9 g/dl (31.0-36.0); Mean Corpuscular Hemoglobin 30.4 pg (27.0-33.0); Mean Platelet Volume 10.3 fL (9.4-12.4); Monocytes Absolute Auto 0.7 X10*3/uL (0.1-1.2); Monocytes Percent Auto 10.2 % (2-11); Neutrophils Absolute Auto 4.6 x10*3/uL (2.0-8.3); Neutrophils Percent Auto 68.6 % (45-73); Platelet Count 211 X10*3/uL (160-400); Red Blood Count 5.14 X10*6/uL (4.60-5.80); Red Cell Distribution Width 13.3 % (11.0-16.0); White Blood Count 6.8 X10*3/uL (4.8-10.8)
[2024-03-09 10:29] LABS: Estimated Average Glucose 97 mg/dL
[2024-03-09 10:30] LABS: Prothrombin Time 12.7 SEC (11.1-13.3)
[2024-03-09 10:32] LABS: Partial Thromboplastin Time 30.6 SEC (26.0-36.8)
[2024-03-09 11:14] LABS: Alanine Aminotransferase 17 U/L (0-40); Albumin Level 4.4 g/dL (3.5-5.0); Alkaline Phosphatase 86 U/L (39-117); Anion Gap 11 (12-20); Aspartate Amino Transferase 17 U/L (5-37); Bilirubin Total 1.7 mg/dL (0.0-1.0); Blood Urea Nitrogen 14 mg/dL (9-16); C Reactive Protein 0.26 mg/dL (< or = 0.50); Calcium 9.1 mg/dL (8.4-10.2); Carbon Dioxide 28 mmol/L (22-29); Chloride 106 mmol/L (96-108); Cholesterol 101 mg/dL (<200); Creatinine Clr Calc Pharmacy 94.2; Estimated Glomerular Filt Rate > 60; Glucose Random 85 mg/dL (60-115); HDL Cholesterol 33 mg/dL (>40); LDL Cholesterol Calculated 55 mg/dL (<100); Sodium 142 mmol/L (135-145); Total Protein 6.9 g/dL (6.5-8.0); Triglycerides 65 mg/dL (<150)
[2024-03-09 11:29] LABS: Potassium 2.6 mmol/L (3.3-5.1); TSH reflex Free T4 0.75 uIU/mL (0.32-4.0)
[2024-03-09 12:24] LABS: Insulin 5 uU/mL (2-29)
--- NOTE | 2024-03-10 13:56 | HO.ANESPROP2 ---
Documented by User: Rosita He NP 03/14/24 14:16 HPI - Anesthesia Eval Consult details Narrative: 69yo M for Gastrectomy Sleeve,EGD,possible diaphragmatic hernia,possible ventral hernia,possible open, Pt reports rare afib. 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 Holter and EKG without afib Hypokalemia with routine preop labs prior to patient holding lasix. Normalized with repeat draw. PMFSH Active Problems Active Problems: All Active Problems Hypokalemia (Acute) Alcohol use disorder, severe, in sustained remission (Acute) BMI 39.0-39.9,adult (Acute) Lymphedema (Acute) Varicose veins of left lower extremity with inflammation (Acute) Vertigo (Acute) Pre-op examination (Acute) Tubular adenoma of colon (Acute) Bursitis of left hip (Acute) Cervical lymphadenopathy (Acute) Neurofibromatosis (Acute) Varicose veins of ankle (Acute) Chronic fatigue (Acute) Diabetes (Acute) Erectile dysfunction (Acute) Weak urinary stream (Acute) Incomplete emptying of bladder due to benign prostatic hyperplasia (Acute) BPH w urinary obs/LUTS (Acute) DJD (degenerative joint disease) (Acute) Von Recklinghausen disease (Acute) BPH (benign prostatic hyperplasia) (Acute) GERD (gastroesophageal reflux disease) (Acute) Anxiety (Acute) Depression (Acute) Hyperlipidemia (Acute) HTN (hypertension) (Acute) Insomnia (Acute) Sleep apnea with use of continuous positive airway pressure (CPAP) (Acute) Obesity (Acute) AA (alcohol abuse) (Acute) Past Medical History Medical History Atrial fibrillation Osteoarthritis DJD (degenerative joint disease) Von Recklinghausen disease GERD (gastroesophageal reflux disease) Anxiety Hyperlipidemia Insomnia Sleep apnea with use of continuous positive airway pressure (CPAP) Obesity Depression ADD (attention deficit disorder) Colon polyp Microscopic hematuria HTN (hypertension) AA (alcohol abuse) BPH (benign prostatic hyperplasia) Family History Family History Mother Throat cancer Paternal Aunt Colon cancer Paternal Grandfather Prostate cancer Family history of problems with anesthesia: No Surgical History Surgical History Hx of tonsillectomy H/O bilateral inguinal hernia repair H/O umbilical hernia repair H/O colonoscopy History of Problems with Anesthesia: No Social History Social History Are you a primary healthcare administration internship to a significant other at home: No Do you presently have visiting nurse or other home services: Yes (laundry) Alcohol intake: former Patient Tobacco Use Status: Former Tobacco user Quit Date: 1977 Use of substances other than those prescribed or required for medical reasons: No Have you been hit, kicked, punched, or otherwise hurt by someone within the past year? If so, by whom?: No Are you DNR?: No Advance Directives: No Advance Directives Information Provided: No Advance Directives on File: No Recently lost weight without trying: No Eating poorly because of decreased appetite: No Nutrition Risks: No Nutritional Risk Poor oral hygiene: Yes (partial upper and lower dentures) Meds Allergies Allergy/AdvReac Type Severity Reaction Status Date / Time Penicillins Allergy Unknown Verified 03/16/24 06:14 Home Medications ?Medication ?Instructions ?Recorded ?Confirmed ?Last Taken ?Type atorvastatin 20 mg tablet 20 mg PO BEDTIME 05/29/22 03/14/24 12/08/22 History clonidine HCl 0.1 mg tablet 0.1 mg PO BEDTIME 05/29/22 03/14/24 12/08/22 History felodipine 10 mg tablet,extended 10 mg PO DAILY 05/29/22 03/14/24 03/16/24 History release 24 hr folic acid 1 mg tablet 1 mg PO QAM 05/29/22 03/14/24 12/08/22 History furosemide 20 mg tablet 10 mg PO DAILY 05/29/22 03/14/24 12/08/22 History lisinopril 10 mg tablet 10 mg PO DAILY 05/29/22 03/14/24 12/08/22 History melatonin 5 mg tablet 5 mg PO BEDTIME 05/29/22 03/14/24 12/08/22 History trazodone 100 mg tablet 200 mg PO BEDTIME 05/29/22 03/14/24 12/08/22 History gabapentin 300 mg capsule 1 cap PO BEDTIME 12/09/22 03/14/24 12/09/22 History lancets 33 gauge (OneTouch Delica #100 ea 01/22/23 03/14/24 Unknown History Plus Lancet) bupropion HCl 300 mg 24 hr tablet, 300 mg PO DAILY 09/30/23 03/14/24 03/16/24 History extended release docusate sodium 100 mg capsule 100 mg PO BID 09/30/23 03/14/24 Unknown History fluticasone propionate 50 1 spray intranasal DAILY 09/30/23 03/14/24 Unknown History mcg/actuation nasal spray,suspension albuterol sulfate 90 mcg/actuation 2 puff inhalation Q6H PRN 12/21/23 03/14/24 Unknown History aerosol inhaler Shortness Of Breath Or Wheezing aripiprazole 2 mg tablet 2 mg PO QAM 03/07/24 03/14/24 03/16/24 History finasteride 5 mg tablet 5 mg PO BEDTIME 03/07/24 03/14/24 Unknown History meclizine 25 mg tablet 25 mg PO TID PRN dizziness 03/07/24 03/14/24 Unknown History methylphenidate HCl 36 mg 36 mg PO QAM 03/07/24 03/14/24 Unknown History tablet,extended release 24 hr tadalafil 10 mg tablet 10 mg PO BEDTIME sexual activity 03/07/24 03/14/24 Unknown History Exam Height,Weight and Vital Signs: Height 5 ft 3 in Weight 86.636 kg Pertinent Lab Results Pertinent Lab Results: Laboratory Tests 03/09/24 13:12 Sodium 143 Potassium 3.4 D Chloride 104 Carbon Dioxide 32 H BUN 15 Creatinine 0.73 Laboratory Tests 03/09/24 03/09/24 09:50 09:54 WBC 6.8 RBC 5.14 Hgb 15.6 Hct 44.7 MCV 87.0 MCH 30.4 MCHC 34.9 RDW 13.3 Plt Count 211 MPV 10.3 Immature Gran % (Auto) 0.4 Neut % (Auto) 68.6 Lymph % (Auto) 18.2 L [place] % (Auto) 10.2 Eos % (Auto) 2.2 Baso % (Auto) 0.4 Lymph # (Auto) 1.2 [place] # (Auto) 0.7 Eos # (Auto) 0.2 Baso # (Auto) 0.0 Abs Immat Gran (auto) 0.03 Absolute Neuts (auto) 4.6 Absolute Nucleated RBC 0.000 Nucleated RBC % (auto) 0.0 PT 12.7 INR 1.0 APTT 30.6 Sodium 142 Potassium 2.6 L* D Chloride 106 Carbon Dioxide 28 Anion Gap 11 L BUN 14 Creatinine 0.74 Estim Creat Clear Calc 94.2 Estimated GFR > 60 Random Glucose 85 Estimat Average Glucose 97 Hemoglobin A1c % 5.0 Insulin Level 5 Calcium 9.1 Total Bilirubin 1.7 H AST 17 ALT 17 Alkaline Phosphatase 86 C-Reactive Protein 0.26 Total Protein 6.9 Albumin 4.4 Triglycerides 65 Cholesterol 101 LDL Cholesterol, Calc 55 HDL Cholesterol 33 L TSH 0.75 Blood Type A Negative Antibody Screen NEGATIVE Narrative Narrative: EKG 02/2024 Vent. Rate : 067 BPM Atrial Rate : 067 BPM P-R Int : 180 ms QRS Dur : 110 ms QT Int : 448 ms P-R-T Axes : 032 -16 032 degrees QTc Int : 473 ms Normal sinus rhythm Minimal voltage criteria for LVH, may be normal variant ( Michael product ) Borderline ECG When compared with ECG of 09-MAR-2024 13:06, Minimal criteria for Anterior infarct are no longer Present Holter 01/2024 1. Patient was monitored for total period of 2 days and 20 hours 2. Baseline was normal sinus rhythm with average heart of 64 beats per minute 3. No significant pauses noted 4. Frequent PACs noted with total burden of 3.8%, mostly isolated 5. Patient reported 3 events of dizziness correlating with sinus rhythm with PACs Assessment and Plan Assessment Anesthesia Assessment: Chart Reviewed Final Anesthetic Review Family History of Problems with Anesthesia: No History of Problems with Anesthesia: No Documented by User: Aniya Noel MD 03/16/24 07:40 [facility] Past Medical History Medical History Atrial fibrillation Osteoarthritis DJD (degenerative joint disease) Von Recklinghausen disease GERD (gastroesophageal reflux disease) Anxiety Hyperlipidemia Insomnia Sleep apnea with use of continuous positive airway pressure (CPAP) Obesity Depression ADD (attention deficit disorder) Colon polyp Microscopic hematuria HTN (hypertension) AA (alcohol abuse) BPH (benign prostatic hyperplasia) Family History Family History Mother Throat cancer Paternal Aunt Colon cancer Paternal Grandfather Prostate cancer Surgical History Surgical History Hx of tonsillectomy H/O bilateral inguinal hernia repair H/O umbilical hernia repair H/O colonoscopy Social History Social History Are you a primary healthcare administration internship to a significant other at home: No Do you presently have visiting nurse or other home services: Yes (laundry) Alcohol intake: former Patient Tobacco Use Status: Former Tobacco user Quit Date: 1977 Use of substances other than those prescribed or required for medical reasons: No Have you been hit, kicked, punched, or otherwise hurt by someone within the past year? If so, by whom?: No Are you DNR?: No Advance Directives: No Advance Directives Information Provided: No Advance Directives on File: No Recently lost weight without trying: No Eating poorly because of decreased appetite: No Nutrition Risks: No Nutritional Risk Poor oral hygiene: Yes (partial upper and lower dentures) Meds Allergies Allergy/AdvReac Type Severity Reaction Status Date / Time Penicillins Allergy Unknown Verified 03/16/24 06:14 Home Medications ?Medication ?Instructions ?Recorded ?Confirmed ?Last Taken ?Type atorvastatin 20 mg tablet 20 mg PO BEDTIME 05/29/22 03/14/24 12/08/22 History clonidine HCl 0.1 mg tablet 0.1 mg PO BEDTIME 05/29/22 03/14/24 12/08/22 History felodipine 10 mg tablet,extended 10 mg PO DAILY 05/29/22 03/14/24 03/16/24 History release 24 hr folic acid 1 mg tablet 1 mg PO QAM 05/29/22 03/14/24 12/08/22 History furosemide 20 mg tablet 10 mg PO DAILY 05/29/22 03/14/24 12/08/22 History lisinopril 10 mg tablet 10 mg PO DAILY 05/29/22 03/14/24 12/08/22 History melatonin 5 mg tablet 5 mg PO BEDTIME 05/29/22 03/14/24 12/08/22 History trazodone 100 mg tablet 200 mg PO BEDTIME 05/29/22 03/14/24 12/08/22 History gabapentin 300 mg capsule 1 cap PO BEDTIME 12/09/22 03/14/24 12/09/22 History lancets 33 gauge (Justin Torres #100 ea 01/22/23 03/14/24 Unknown History Plus Lancet) bupropion HCl 300 mg 24 hr tablet, 300 mg PO DAILY 09/30/23 03/14/24 03/16/24 History extended release docusate sodium 100 mg capsule 100 mg PO BID 09/30/23 03/14/24 Unknown History fluticasone propionate 50 1 spray intranasal DAILY 09/30/23 03/14/24 Unknown History mcg/actuation nasal spray,suspension albuterol sulfate 90 mcg/actuation 2 puff inhalation Q6H PRN 12/21/23 03/14/24 Unknown History aerosol inhaler Shortness Of Breath Or Wheezing aripiprazole 2 mg tablet 2 mg PO QAM 03/07/24 03/14/24 03/16/24 History finasteride 5 mg tablet 5 mg PO BEDTIME 03/07/24 03/14/24 Unknown History meclizine 25 mg tablet 25 mg PO TID PRN dizziness 03/07/24 03/14/24 Unknown History methylphenidate HCl 36 mg 36 mg PO QAM 03/07/24 03/14/24 Unknown History tablet,extended release 24 hr tadalafil 10 mg tablet 10 mg PO BEDTIME sexual activity 03/07/24 03/14/24 Unknown History Exam Airway Mallampati Class: III (chipped front central incisors) TM Dist: >3cm Neck ROM: Full Partial: Upper and Lower Loose/Missing/Broken Teeth: Yes, Upper and Lower Heart: RRR Lungs: CTA Assessment and Plan Assessment Anesthesia Assessment: Anesthesia Plan Discussed Final Anesthetic Review NPO: Yes ASA Class: III Final Preanesthetic Review: Meds/Allgs Chart Reviewed, Consent Obtained/Reviewed and Anes Risks/Benef Reviewed Patient Risk: Intermediate Procedure Risk: Intermediate Anesthetic Plan Anesthetic Plan: GA Disposition: Standard PACU
--- NOTE | 2024-03-13 12:03 | ECG_ITS ---
Test Reason : preop Blood Pressure : / mmHG Vent. Rate : 067 BPM Atrial Rate : 067 BPM P-R Int : 180 ms QRS Dur : 110 ms QT Int : 448 ms P-R-T Axes : 032 -16 032 degrees QTc Int : 473 ms Normal sinus rhythm Minimal voltage criteria for LVH, may be normal variant ( [place] product ) Borderline ECG When compared with ECG of 09-MAR-2024 13:06, Minimal criteria for Anterior infarct are no longer Present Referred By: Ge Fatima Electronically Signed By:LAUREN ZUNIGA
[2024-03-16] VITALS (16 sets, daily range): BP systolic 136–155; BP diastolic 51–76; PULSE 67–78; RESP 16–20; TEMP 36.6–37.1; O2SAT 90–99; BMI 32.6; BMI 34.5
[2024-03-16] MEDS: Lactated Ringers 1,000 ML 100 ML IVCONT ×2 (06:21→13:40)
[2024-03-16] MEDS: Lactated Ringers 1,000 ML 999 ML IV (06:21)
--- OUTSIDE RECORDS SUMMARY | 2024-03-16 06:23 | XMS_ITS | Continuity of Care Document ---
Author Organization [facility] Address [address] [place] [address]- Care Team Providers Care Med Dir Name Role Phone Schuyler YO MD, Selvin Miranda Primary Care Physician Encounter [facility] [place] AC[facility] R [id number] Date(s): 08/21/19 - 12/14/19 [facility] [address] [place] [address]- [facility] Attending Physician: Lamar Sexton MD Admitting Physician: Lamar Sexton MD Referring Physician: Schuyler YO MD, James C Allergies, Adverse Reactions, Alerts Substance Reaction Severity Status penicillins Active Medications felodipine 5 mg oral tablet, extended release 1 tablet = 5 mg, By Mouth, Daily, # 30 tablet, 0 Refills, Maintenance, 12/06/17 8:21:39, ER Tablet Start Date: 12/06/17 Status: Ordered lisinopril 40 mg oral tablet 1 tablet = 40 mg, By Mouth, Daily, # 30 tablet, 0 Refills, Maintenance, 12/06/17 8:22:05, Tablet Start Date: 12/06/17 Status: Ordered omeprazole 20 mg oral delayed release tablet 1 tablet = 20 mg, By Mouth, Daily, 0 Refills, Maintenance, 12/06/17 8:20:57 Start Date: 12/06/17 Status: Ordered tamsulosin 0.4 mg oral capsule 0.4 mg, 1, capsule, By Mouth, Daily, # 30 capsule, Refills 0, Maintenance, 12/06/17 8:21:47 Start Date: 12/06/17 Status: Ordered Problem List Condition Effective Dates Status Health Status Inform ant JOSEPH - Obstructive sleep apnea(Confirmed) Active Social History Social History Type Response Smoking Status Former smoker; Other : Quit 1987; entered on: 12/06/17 Sex
--- OUTSIDE RECORDS SUMMARY | 2024-03-16 06:23 | XMS_ITS | Continuity of Care Document ---
Author Organization [facility] Address [address] [place] [address]- Care Team Providers Care Risk Management Specialist Name Role Phone Shana ROSS, Brittany Yang Primary Care Physician Encounter [facility] [place] Date(s): 09/25/22 - 10/25/[address] [address] Attending Physician: AdmArina hough Admitting Physician: AdmtrArina Referring Physician: Admtr, Ar8 Allergies, Adverse Reactions, Alerts Substance Reaction Severity [...] Date: 12/06/17 Status: Ordered Problem List Condition Confirmation Course Effective Dates Status Health St [facility] Informant JOSEPH - Obstructive sleep apnea Confirmed Active Social History Social History Type Response Smoking Status Former smoker; Other : Quit 1987; entered on: 12/06/17 Sex Patient Care team information Care Team Personnel Name: Shana ROSS, Brittany Yang Position: [facility] Outreach Member Role: PCP Address: Address: [address] [place] [address]- Care Team Related Persons Name: JESUS VALERIO Address: home [address] [place] [address]
--- OUTSIDE RECORDS SUMMARY | 2024-03-16 06:23 | XMS_ITS | Continuity of Care Document ---
Author Organization [facility] Address [address] [place] [address]- Care Team Providers Care Pulverizer Name Role Phone Schuyler YO MD, Selvin Miranda Primary Care Physician Encounter [facility] [place] Date(s): 11/14/19 - 11/24/19 [facility] [address] [place] [address] [facility] Attending Physician: AdmArina hough Admitting Physician: Admtr, ArIveth Referring Physician: Admtr, Ar8 Allergies, Adverse Reactions, [...]
--- OUTSIDE RECORDS SUMMARY | 2024-03-16 06:23 | XMS_ITS | Continuity of Care Document ---
Author Organization [facility] Address [address] [place] [address]- Care Team Providers Care Automatic Line Set Up Mechanic Name Role Phone Brittany Saldana MD Primary Care Physician Encounter [facility] [place] Date(s): 09/19/22 - 10/25/[address] [address] Attending Physician: Brittany Saldana MD Admitting Physician: Brittany Saldana MD Referring Physician: Brittany Saldana MD Allergies, Adverse Reactions, Alerts Substance Reaction Severity [...] Personnel Name: Shana ROSS, Brittany Yang Position: [facility] Outreach Member Role: PCP Address: Address: [address] [place] [address]- Care Team Related Persons Name: JESUS VALERIO Address: [address] [place] [address]
--- OUTSIDE RECORDS SUMMARY | 2024-03-16 06:23 | XMS_ITS | Continuity of Care Document ---
Author Organization [facility] Address [address] [place] [address]- Care Team Providers Care Sign Builder Supervisor Name Role Phone Brittany Saldana MD Primary Care Physician [id number] Date(s): 08/25/22 - 09/24/22 [facility] [address] [place] [address]- Allergies, Adverse Reactions, Alerts Substance Reaction Severity [...] Care team information Care Team Personnel Name: Brittany Saldana MD Position: S Outreach Member Role: PCP Address: Address: [address] [place] [address]- Care Team Related Persons Name: JESUS VALERIO Address: [place] [address]
--- OUTSIDE RECORDS SUMMARY | 2024-03-16 06:23 | XMS_ITS | Continuity of Care Document ---
Author Organization [facility] Address Unknown Care Team Providers Care Forestry Crew Chief Name Role Phone Samantha Faye MD Primary Care Physician [phone] [place] [facility] [place]s): 06/02/21 - 07/02/21 [facility] Attending Physician: Arina Eason Admitting Physician: Arina Eason Referring Physician: Arina Eason Allergies, Adverse Reactions, Alerts Substance Reaction Severity [...]
[2024-03-16] MEDS: Aprepitant 32 MG/4.4 ML VIAL IVPUSH (06:55)
--- NOTE | 2024-03-16 07:42 | MHC.SHP ---
Pre-Procedural Eval Section A - 24 Hr Update-Section A only Date of Service: 03/16/24 The patient is an INPATIENT: Yes The patient has been examined within 24 hours of the surgical procedure. The History & Physical has been completed within 30 days and I have reviewed it.: Yes Section B - Complete if H&P > 30 days Chief Complaint: obesity Relevant Family History (Specify if Yes): No Relevant Social History: None Present Medications: None Medical History: No relevant PMH History of Previous Operations: No relevant previous surgery Allergies: Allergies Allergy/AdvReac Type Severity Reaction Status Date / Time Penicillins Allergy Unknown Verified 03/16/24 06:14 Review of Systems Sugical H&P ROS: Negative: Constitution, Cardiovascular, Respiratory, Neurological, Psychiatric, Hem-Onc, Allergic/Immunologic, Gastrointestinal, Genitourinary, Musculoskeletal, Integumentary, Endocrine and Eyes/Ears/Nose/Throat Exam Surgical H&P Exam: Normal: HEENT, Normal: Heart, Normal: Lungs, Normal: Extremities, Normal: Abdomen, Normal: Skin and Normal: Neurological Plan Diagnosis/Plan: Unchanged I have reviewed the history and physical and performed a pertinent physical examination on my patient. No changes have occurred unless specified. Time Spent With Patient Time: Total time managing care of this patient today ____ minutes.
--- NOTE | 2024-03-16 10:57 | PM.OP ---
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 The program is a phased program with a special focus on preoperative medical weight management to promote substantial weight loss and prepare the patients for the second phase of the program: bariatric surgery. The patient participated in an intensive weekly lifestyle ?intervention and exercise program during which the patient ?has lost between the initial office visit and the last preoperative visit 32.2 lbs, or 14.5% of initial actual body weight. It was deemed appropriate for the patient to now have bariatric surgery. In light of the current Covid-19 pandemic and the well documented strong association of obesity and increased risk of worse outcomes if infected with Covid-19 (REFERENCES:https://pubmed.ncbi.nlm.nih.gov/07812488/,?https://pubmed.ncbi.nlm.nih.gov/42450078/), any delay in undergoing bariatric surgery may lead to the patient's worsening health condition and increased?risk of more severe Covid-19 disease if infected. In addition a recent?study from [facility] published in [facility] on 11/10/2021 ([email or web address]) found that, among patients with obesity, substantial weight loss achieved with surgery was associated with improved outcomes of COVID-19 infection. The findings suggest that obesity can be a modifiable risk factor for the severity of COVID-19 infection. In addition, the patient met the BMI-criteria for bariatric surgery based on the BMI on initial presentation. The patient should not be penalized for achieving such weight loss because ?it is not sustainable long-term without surgical intervention and it was achieved in preparation for bariatric surgery ?under my direction and based on my published research ([email or web address]:/[email or web address]).pdf and?https://www.soard.org/article/H9545-2129(82)47530-X/pdf) ?that a 10% preoperative weight loss improves long-term weight loss after surgery and reduces perioperative complications.? Insurance carriers such as [facility] have endorsed my recommendations ?and have included in their policies criteria to include a 10% preoperative weight loss requirement. PROCEDURE: Esophago-gastroscopy laparoscopic lysis of adhesions, laparoscopic sleeve gastrectomy and laparoscopic gastropexy INDICATIONS: This is a 69 year-old male who was electively scheduled for laparoscopic, possibly open sleeve gastrectomy. The risks and complications of the procedure were discussed with the patient in advance, particularly the possibility of ; pulmonary embolism; staple line leak; bleeding; GERD; cardiac, pulmonary, or renal complications; as well as long-term problems such as insufficient weight loss, vitamin deficiency, strictures, or ulcers. The patient understood all the risks, and was in agreement to proceed with surgery. DESCRIPTION OF PROCEDURE: After informed consent was obtained from the patient, the patient was given preoperative antibiotics, and was transferred to the operating room. After successful induction of general anesthesia, pneumatic compression devices were placed on both lower extremities. An upper endoscopy was performed next. The oropharynx and esophagus appeared to be within normal limits. There was no diaphragmatic hernia present consistent with the findings of the preoperative upper GI. The stomach was entered. Then after all fluid and air were suctioned and the stomach was fully decompressed, the scope was withdrawn and secured in the mid esophagus. The patient was then prepped and draped in the usual sterile manner, and abdominal access was established at the right upper quadrant with the Slime technique. A 12 mm blunt port was inserted, and the abdomen was insufflated with CO2 to a pressure of 15 mmHg. Under direct visualization, additional ports were placed, specifically two 5 mm Versi-step ports to the left upper quadrant, and a 5 mm Versi-Step port to the right upper quadrant. 1% lidocaine plain was used to infiltrate all port sites as well as all fascia defects. Following that, the patient was placed in a steep reverse Trendelenburg position. An additional 5 mm port was placed to the right flank for the Mediflex retractor that was used to retract the left lobe of the liver. The gastro-esophageal fat pad was opened with the ultrasonic device (Thunderbeat, Olympus) and the anterior esophagus and hiatus were exposed. The angle of His was opened with the ultrasonic device the fundus of the stomach from any diaphragmatic and splenic attachments. I then opened the gastrocolic ligament between the transverse colon and the greater curvature of the stomach with the ultrasonic device to enter the lesser sac and facilitate the ligation of the short gastric vessels. I started at a mid-point along the greater curvature and using the Thunderbeat, all short gastric vessels were divided all the way to the angle of His until the left dacia was completely dissected at its entirety. I then divided the gastro-colic ligament distally to a distance of about 3-4 cm proximal to the pylorus. There were extensive congenital adhesions between the pancreas and posterior gastric wall. Those were lysed completely with the ultrasonic device. Adhesiolysis took approximately 45 min to complete. The stomach was then divided transversely with four Endo SEBASTIEN-45 purple and three SEBASTIEN-60 articulating purple loads using the [employer] stapler and loads. Every effort was made that the gastric sleeve had a tubular shape and an even caliber throughout. Once the sleeve resection was completed, the staple line of the gastric sleeve was reinforced with Hemoclips. The resected stomach was retrieved without difficulty from the Slime port. A gastropexy was then performed in order to prevent postoperative GERD and partial gastric volvulus. Several interrupted 2.0 Surgidac sutures were placed between the sleeve's staple line and the previously divided greater omentum and gastro-colic ligament using the Endo-Stitch device. ?An upper endoscopy was performed. There was no narrowing at the GE junction. The scope was easily advanced all the way to the pylorus which was clearly visualized. There was no narrowing anywhere and the sleeve's caliber was even throughout. The sleeve's staple line was inspected and there was no evidence of ischemia, bleeding or dehiscence. At that point the gastroscope was withdrawn from the patient?s mouth while we were decompressing the bowel and the stomach from any remaining air. I looked into the lesser sac to see how the sleeve was situating and it was situating well. There was no bleeding from the staple line, spleen, or short gastric vessels. The Mediflex retractor was removed, and the undersurface of the liver was inspected and there was no bleeding. The patient was placed in supine position. I closed the fascial defect of the 12 mm port site with a figure of eight #1 Polysorb suture. Then 30cc Ropivacaine plain with 10 mg of Dexamethasone were used to infiltrate the fascial closure as well as all skin incisions. At this point, the abdomen was deflated, all ports were removed under direct vision, and no bleeding was noted from any of the port sites. The skin incisions were irrigated with saline and were closed with 4-0 absorbable monofilament sutures. Steri-Strips and OpSites were used to cover all incisions. The patient was extubated and was transferred in stable condition to the recovery room for further care. I was present and performed all hannon parts of the procedure. Mr Fatima was the airplane first officer. There were no residents to assist with this case. Jeff Valdez MD, PhD, FACS Surgeon: Reece Valdez MD Anesthesia: GETA, local and other (TAP block) Was an Recovery Room Nurse used for this Procedure?: Yes Recovery Room Nurse: Ge Fatima Estimated blood loss (mL): 10 IV fluids (mL): 2,500 Urine output (mL): 0 (No Davidson to record output) Pathology: other (Stomach) Condition: stable Disposition: PACU
--- NOTE | 2024-03-16 10:59 | P.DS_ITS ---
DS: Providers Provider Date of Service: 03/17/24 Date of admission: 03/16/24 06:01 Primary care physician: Brittany Saldana MD DS: Summary Hospital Course Hospital Course: ADMITTING DIAGNOSIS: obesity, htn, hld, deanna, depression, anxiety, gerd, neurofibromatosis, hypokalemia ? DISCHARGE DIAGNOSIS: same, s/p laparoscopic sleeve gastrectomy ? PAST SURGICAL HISTORY: inguinal hernia repair, tonsillectomy ? PROCEDURE: upper endoscopy, laparoscopic sleeve gastrectomy ? DISCHARGE SUMMARY: ? History of Present Illness: ? The patient is a?69 year-old male with a BMI of?39.4 kg/m2 and associated co- morbidities as described above. The patient had extensive work-up,lost?31.9 lbs preoperatively and was electively scheduled for laparoscopic, possible open sleeve gastrectomy and gastropexy. Risks and complications of the surgery were discussed with the patient in advance, particularly the possibility of , pulmonary embolism, anastomotic leak, bleeding, bowel injury, GERD, cardiac, renal or pulmonary complications. The patient understood all the risks and was in agreement with the surgical plan. ? Hospital Course: ? The patient underwent an uneventful laparoscopic sleeve gastrectomy with gastropexy on the day of admission. Postoperatively, the patient was transferred to the surgical floor. The patient received IV Acetaminophen and IV dilaudid for pain control. Patient was started on bariatric phase 1 diet POD #0. On postoperative day one, the patient was feeling well without nausea, vomiting, fevers, or tachycardia. The patient had some mild incisional pain and the abdomen was soft. ? On the morning of postoperative day one, the patient was continued on 1 ounce of water or ice every half hour. During the day, the patient did fairly well, having some incisional pain, but able to ambulate adequately and to tolerate liquids well. ? Since the patient is doing well, we decided that the patient was ready to be discharged. The patient was given instructions to follow-up with me next week and to call my office for any fever over 101, persistent abdominal pain, nausea, vomiting, GERD, symptoms of DVT such as calf tenderness, or leg swelling, or pulmonary embolism such as chest pain or shortness of breath. The patient was also instructed to drink 40-60 ounces of liquids per day using the 1-ounce cups. The patient had been given prescriptions for Tylenol for pain, Zofran prn for nausea, and pantoprazole and carafate previously. The patient was encouraged to ambulate and use the incentive spirometer. The patient was allowed to shower, but no baths, and encouraged to stay active at home. All of these instructions were given to the patient personally. All questions were answered and the patient understood all instructions, the instructions were also given to the patient in print. Time Attestation Total time managing care of this patient today: 25 mintues. Discharge Coordination Time (in mins): 25 Quality: Safe Use of Opioids Does Pt have an Active Cancer Diagnosis on the Problem List?: No Quality: Stroke Does the patient have a stroke diagnosis?: No Physical Exam Vital Signs: Vital Signs: Last Vital Signs Temp 98.6 F 03/16/24 06:37 Pulse 68 03/16/24 06:37 Resp 18 03/16/24 06:37 BP 136/51 L 03/16/24 06:37 Pulse Ox 97 03/16/24 06:37 O2 Del Method Room Air 03/16/24 06:37 BMI result Body Mass Index 32.6 DS: Data Data Completed and Pending Pending studies at discharge: Pending at discharge 03/16/24 10:06 Surgical [PTH] Routine Discharge Plan Discharge Anticipated Discharge Date/Time: 03/17/24 10:00 Patient Disposition: Home, Self-Care Discharge Diagnosis: s/p laparoscopic sleeve gastrectomy Referrals: Brittany Saldana MD [Primary Care Provider] - 1 Week Discharge Medications: Continued terazosin 5 mg capsule 5 mg PO BEDTIME 90 Days Qty: 90 2RF potassium chloride 20 mEq tablet extended release 20 meq PO DAILY Qty: 30 1RF gabapentin 300 mg capsule 1 cap PO BEDTIME finasteride 5 mg tablet 5 mg PO BEDTIME meclizine 25 mg tablet 25 mg PO TID PRN (Reason: dizziness) methylphenidate HCl 36 mg tablet extended release 24hr 36 mg PO QAM aripiprazole 2 mg tablet 2 mg PO QAM melatonin 5 mg tablet 5 mg PO BEDTIME furosemide 20 mg tablet 10 mg PO DAILY felodipine 10 mg tablet extended release 24 hr 10 mg PO DAILY trazodone 100 mg tablet 200 mg PO BEDTIME atorvastatin 20 mg tablet 20 mg PO BEDTIME clonidine HCl 0.1 mg tablet 0.1 mg PO BEDTIME albuterol sulfate 90 mcg/actuation HFA aerosol inhaler 2 puff inhalation Q6H PRN (Reason: Shortness Of Breath Or Wheezing) bupropion HCl 300 mg tablet extended release 24 hr 300 mg PO DAILY docusate sodium 100 mg capsule 100 mg PO BID PRN (Reason: Constipation) fluticasone propionate 50 mcg/actuation spray,suspension 1 spray intranasal DAILY pantoprazole 40 mg tablet,delayed release (DR/EC) 40 mg PO DAILY Qty: 90 0RF sucralfate 100 mg/mL suspension 10 ml PO BID Qty: 600 2RF ondansetron 4 mg tablet,disintegrating 4 mg PO Q12H Qty: 20 0RF Rx Instructions: Only take one every 12 hours as needed if you have nausea Held tadalafil 10 mg tablet 10 mg PO BEDTIME PRN (Reason: sexual activity) Hold Instructions: until discussed with Dr Valdez lisinopril 10 mg tablet 10 mg PO DAILY Hold Instructions: until discussed with Dr Valdez Discontinued folic acid 1 mg tablet 1 mg PO QAM polyethylene glycol 3350 [Miralax] 17 gram powder in packet 17 g PO DAILY Qty: 14 0RF Rx Instructions: Mix each packet with 8oz of water, Crystal light, or Gatorade zero, or Propel and do 7 packets on 03/14/24 and another 7 packets on 03/15/24 No Action (DME) lancets [OneTouch Delica Plus Lancet] 33 gauge misc See Rx Instructions .ROUTE BID Qty: 100 Rx Instructions: As directed Discharge Orders: Discharge Order (Routine); Ordered 03/17/24 Ordered By: Ge Fatima Activity on Discharge: No heavy lifting Stand Alone Forms: Patient Portal Discharge page Print Language: Wolof Care Plan Goals: weight loss Health Concerns: obesity Plan of Treatment: No tub baths, sex or returning to work until discussed at first post op appointment. No exercise, alcohol, tobacco or illegal drug use. Continue to use incentive spirometer hourly while awake. Walk in home for 5- 10 minutes every 2 hours during the first week. Follow all instructions in the bariatric handbook and call with any questions.Discharge Instructions 1. Please call your doctor or come back to the emergency room should any new symptoms arise. 2. You will receive a courtesy call from [facility] 24-48 hours after discharge. 3. Activity: abstain from alcohol, practice limited stair climbing, no bending, no driving, no exercise, no illicit substances, no lifting, no sex, no tub bath, no work. 4. Diet: continue as discussed with Dr. Valdez. 5. Dressing Change/Wound Care: Your incision is covered by clear bandages and guaze underneath. If the area is tender, you may apply an ice pack for short intervals (no more than 20 minutes on, followed by at least 20 minutes off). Do not apply heat. Do not use creams, lotions, or topical antibiotics unless instructed to do so by your surgeon. These can cause infection or allergic reaction. 6. Call your doctor if: - Your temperature exceeds 101.5 F - You experience excessive pain or swelling - You have an unexpected reaction to medication - You have excessive bleeding - You experience continued vomiting/nausea - Your incision begins to separate - Your incision shows signs of infection such as increased redness, swelling, excessive pain, heat, or drainage (light blood or clear fluid is normal) 7. General instructions: No lifting greater than 5 lbs for 1 week and not more than 20lbs the next 3?weeks. No driving until seen at the office in 5-7 days after surgery. If you do not move your bowels in the next 2 days, please tell?Dr. Valdez. Please walk around your home every hour or two to prevent blood clots from forming in your legs. You do not need to wake from sleeping to walk. Please sleep in a bed or couch to prevent kinking at the hips and knees. Please take your incentive spirometer (your lung automatic lathe operator) home with you and use it for the next few days to prevent pneumonia. You may shower, no hot tubs, baths or swimming pools.?Please follow the post op diet instructions you are?given by Dr Valdez? and text me daily at 5-6pm for an update.?If you have any issues or concerns or questions please communicate this to him via text.? The Celebrate shakes have all of the bariatric vitamins you need if you consume these shakes. If you are drinking other protein shakes, you will need to purchase the Celebrate multivitamins and calcium that are available in the hospital gift shop on the first floor of the main hospital.??Do not take anything without first discussing with Dr Valdez. Please make sure you are consuming at least 40 ounces of fluids per day starting the?day AFTER your discharge from the hospital. Always drink 1-2 ml per minute using the 5ml?syringe. If you drink faster you may experience?bloating,?gas pain, burping, nausea or heartburn. In that case please slow down your pace and use the syringe to?understand better the?proper?pace and volume of drinking. Do not hesitate to contact the office with any questions at . The patient's medical history has been reviewed and they are considered low risk for post op DVT and therefore DVT prophylaxis is not considered necessary. Travel after surgery was reviewed. The patient has not disclosed any travel plans during the first 30 days after surgery and they have been advised that within the first 30 days after surgery any bus, plane, train or car travel over 2 hours in duration is contraindicated due to the possibility of developing blood clots from immobility. Any travel, needs to include periods of ambulation of 10 minutes in duration every 2 hours.? The patient was instructed to discuss any plans for travel during this period with their bariatric surgeon. Assessment: stable s/p laparoscopic sleeve gastrectomy
--- NOTE | 2024-03-16 11:03 | P.PNGS_ITS ---
Subjective Subjective Date of Service: 03/16/24 Interval history: Feels well. Mild incisional pain. He is tolerating phase 1 bariatric diet Physical Exam 2 Vital Signs: Vital Signs: Last Vital Signs Temp 98.6 F 03/16/24 06:37 Pulse 68 03/16/24 06:37 Resp 18 03/16/24 06:37 BP 136/51 L 03/16/24 06:37 Pulse Ox 97 03/16/24 06:37 O2 Del Method Room Air 03/16/24 06:37 BMI result Body Mass Index 32.6 GI: Inspection: Yes normal to inspection, Yes incision (clean, dry and intact) and Yes obesity Palpation (GI): Soft to palpation Extrem: Right lower extremity: normal to inspection (no calf tenderness) L eft lower extremity: normal to inspection (no calf tenderness) Objective Data Active Medications Albuterol Sulfate (Albuterol Sulfate (0.083%) 2.5 Mg/3 Ml Vial.Neb) 2.5 mg INHALE ONCE PRN PRN Reason: Wheezing Stop: 03/16/24 13:41 Albuterol Sulfate (Albuterol Sulfate 90 Mcg 8 Gm Inhaler) 2 puff INHALE Q6H PRN PRN Reason: Shortness Of Breath Or Wheezing Aripiprazole (Aripiprazole 2 Mg Tablet) 2 mg PO QAM MIGUEL Bupropion HCl (Bupropion Hcl Xl 300 Mg Tab.Er.24h) 300 mg PO DAILY MIGUEL Clonidine HCl (Clonidine Hcl 0.1 Mg Tablet) 0.1 mg PO BEDTIME MIGUEL; Protocol Fentanyl (Fentanyl Citrate/Pf 100 Mcg/2 Ml Vial) 25 mcg IVPUSH Q5M PRN; Protocol PRN Reason: Pain, Moderate(Pain Scale 4-6) Stop: 03/16/24 13:40 Finasteride (Finasteride 5 Mg Tablet) 5 mg PO BEDTIME [facility] Fluticasone Propionate (Fluticasone Propionate Nasal 16 Gm [place]) 1 spray NOSTRIL-B DAILY MIGUEL Hydromorphone HCl (Hydromorphone Hcl 0.5 Mg/0.5 Ml Syringe) 0.25 mg IVPUSH Q5M PRN; Protocol PRN Reason: Pain, Severe (Pain Scale 7-10) Stop: 03/16/24 13:40 Lactated Ringer's (Lr) 1,000 mls @ 100 mls/hr IVCONT .Q10H MIGUEL Last Admin: 03/16/24 06:21 Dose: 100 mls/hr Documented By: LUCIO Lisinopril (Lisinopril 10 Mg Tablet) 10 mg PO DAILY [facility]; Protocol Non-Formulary Medication (Methylphenidate Hcl) 36 mg PO QAM MIGUEL Non-Formulary Medication (Felodipine) 10 mg PO DAILY [facility] Non-Formulary Medication (Melatonin) 5 mg PO BEDTIME MIGUEL Non-Formulary Medication (Terazosin) 5 mg PO BEDTIME [facility] Ondansetron HCl (Ondansetron Hcl 4 Mg/2 Ml Vial) 4 mg IVPUSH ONCE PRN PRN Reason: Nausea and Vomiting Stop: 03/16/24 13:41 Trazodone HCl (Trazodone Hcl 100 Mg Tablet) 200 mg PO BEDTIME [facility] Labs 03/09/24 09:54 03/09/24 09:54 Procedures Date of Service Date of Service: 03/16/24 Progress Note: A&P Assessment and plan (1) S/P laparoscopic sleeve gastrectomy: Status: Acute Assessment and Plan: s/p laparoscopic sleeve gastrectomy, lysis of adhesions, diaphragmatic hernia repair and gastropexy Doing well Will check am labs and if OK the patient will be discharged home (2) Obesity: Status: Acute (3) BMI 33.0-33.9,adult: Status: Acute (4) Sleep apnea with use of continuous positive airway pressure (CPAP): Status: Acute (5) Insomnia: Status: Acute (6) HTN (hypertension): Status: Acute (7) Hyperlipidemia: Status: Acute (8) Depression: Status: Acute (9) Anxiety: Status: Acute (10) GERD (gastroesophageal reflux disease): Status: Acute (11) BPH (benign prostatic hyperplasia): Status: Acute (12) Von Recklinghausen disease: Status: Acute (13) DJD (degenerative joint disease): Status: Acute (14) Neurofibromatosis: Status: Acute (15) Lymphedema: Status: Acute (16) ADD (attention deficit disorder): Status: Acute Time Spent With Patient Time: Total time managing care of this patient today ____ minutes. Quality Stroke Does the patient have a stroke diagnosis?: No VTE Prior VTE?: No VTE Risk Level:: Surgical - moderate VTE Device Contraindication: N/A - Device Ordered VTE Drug Contraindication: Treatment Not Indicated
--- NOTE | 2024-03-16 11:19 | PHA.MEDREC ---
Pharmacy Consult ? Medication Reconciliation Pharmacy has reviewed the medication reconciliation done by nursing staff, noticed and changed the docusate to PRN (per pharmacy claim's direction) and also taladafil to PRN. Potassium Chloride ER 20 mEq is 1 tab qam per pharmacy claim.
[2024-03-16 12:24] LABS: Hematocrit 45.2 % (42.0-52.0)
[2024-03-16 12:36] LABS: Anion Gap 19 (12-20); Blood Urea Nitrogen 9 mg/dL (9-16); Calcium 9.4 mg/dL (8.4-10.2); Carbon Dioxide 22 mmol/L (22-29); Chloride 104 mmol/L (96-108); Creatinine Clr Calc Pharmacy 86.6; Estimated Glomerular Filt Rate > 60; Glucose Random 116 mg/dL (60-115); Potassium 3.5 mmol/L (3.3-5.1); Sodium 141 mmol/L (135-145)
[2024-03-16] MEDS: Acetaminophen 1,000 MG/100 ML PIGGYBACK 16.7 MG IV ×2 (13:42→19:14)
--- NOTE | 2024-03-16 15:30 | PC.NURSE ---
pt states he will not bring in methylphenidate, pharmacist notified.
[2024-03-16] MEDS: KCl 40 mEq in 0.9 % Sodium Chl 40 MEQ/1,000 ML IV.SOLN 125 MEQ IVCONT (16:37)
[2024-03-16] MEDS: traZODone HCL 100 MG TABLET 200 MG PO (19:39)
[2024-03-16] MEDS: Melatonin 3 MG TABLET 6 MG PO (19:39)
[2024-03-16] MEDS: Doxazosin Mesylate 2 MG TABLET 4 MG PO (19:39)
[2024-03-16] MEDS: Finasteride 5 MG TABLET PO (19:39)
[2024-03-16] MEDS: 0.9 % Sodium Chloride Flush 3 ML SYRINGE IVFLUSH (19:40)
[2024-03-16] MEDS: Famotidine/PF 20 MG/2 ML VIAL IVPUSH (19:40)
[2024-03-16] MEDS: cloNIDine HCL 0.1 MG TABLET PO (19:40)
[2024-03-17] MEDS: KCl 40 mEq in 0.9 % Sodium Chl 40 MEQ/1,000 ML IV.SOLN 125 MEQ IVCONT (00:18)
[2024-03-17] MEDS: Acetaminophen 1,000 MG/100 ML PIGGYBACK 16.7 MG IV (02:36)
[2024-03-17 03:06] VITALS: BP 140/63; PULSE 63; RESP 16; TEMP 36.6; O2SAT 95
[2024-03-17 05:36] LABS: MANUAL DIFF FLAG NO
[2024-03-17 05:44] LABS: Basophils Percent Auto 0.1 % (0-2); Hematocrit 39.7 % (42.0-52.0); Imm Gran Abs Auto 0.05 X10*3/uL (0.00-0.03); Imm Gran Pct Auto 0.5 % (0.0-0.4); Lymphocytes Absolute Auto 0.9 X10*3/uL (1.2-4.9); Lymphocytes Percent Auto 8.5 % (20-40); Mean Corpuscular HGB Conc 35.3 g/dl (31.0-36.0); Mean Corpuscular Hemoglobin 31.2 pg (27.0-33.0); Mean Corpuscular Volume 88.4 fL (80.0-98.0); Mean Platelet Volume 10.2 fL (9.4-12.4); Monocytes Absolute Auto 1.2 X10*3/uL (0.1-1.2); Monocytes Percent Auto 10.6 % (2-11); Neutrophils Absolute Auto 8.7 x10*3/uL (2.0-8.3); Neutrophils Percent Auto 80.3 % (45-73); Platelet Count 160 X10*3/uL (160-400); Red Blood Count 4.49 X10*6/uL (4.60-5.80); Red Cell Distribution Width 13.4 % (11.0-16.0); White Blood Count 10.9 X10*3/uL (4.8-10.8)
[2024-03-17 05:58] LABS: Anion Gap 14 (12-20); Blood Urea Nitrogen 10 mg/dL (9-16); Calcium 8.6 mg/dL (8.4-10.2); Carbon Dioxide 22 mmol/L (22-29); Chloride 110 mmol/L (96-108); Creatinine Clr Calc Pharmacy 96.4; Estimated Glomerular Filt Rate > 60; Glucose Random 110 mg/dL (60-115); Potassium 3.8 mmol/L (3.3-5.1); Sodium 142 mmol/L (135-145)
[2024-03-17 07:02] VITALS: BP 156/69; PULSE 67; RESP 16; TEMP 36.6; O2SAT 96
[2024-03-17] MEDS: lisinopriL 10 MG TABLET PO (07:25)
[2024-03-17] MEDS: amLODIPine Besylate 10 MG TABLET PO (07:25)
[2024-03-17] MEDS: buPROPion HCl XL 300 MG TAB.ER.24H PO (07:25)
[2024-03-17] MEDS: 0.9 % Sodium Chloride Flush 3 ML SYRINGE IVFLUSH (07:25)
[2024-03-17] MEDS: Famotidine/PF 20 MG/2 ML VIAL IVPUSH (07:25)
[2024-03-17] MEDS: ARIPiprazole 2 MG TABLET PO (07:25)
--- NOTE | 2024-03-17 08:40 | MHC.CM.PN ---
IM[facility] DELIVERED PT LIVES WITH SPOUSE AND IS INDEPENDENT. + HCP ON FILE. PCP DR. AGUEDA NESS. DP: PT HAS BEEN MEDICALLY CLEARED FOR DC HOME, NO SERVICES. [facility] WILL TRANSPORT
--- NOTE | 2024-03-17 09:50 | HO.POSTANES ---
Post Anesthesia Evaluation Post Anesthesia Evaluation Date of Service: 03/16/24 Vital Signs: Vital Signs Temp Pulse Resp BP Pulse Ox O2 Del Method O2 Flow Rate 03/17/24 07:02 98 F 67 16 156/69 H 96 Room Air 03/17/24 03:06 97.8 F 63 16 140/63 H 95 Room Air 03/16/24 23:20 98.5 F 67 20 147/67 H 94 CPAP 3 Anesthesia: General Endotracheal-GETA Mental Status: Awake Pain Control: Satisfactory Nausea/Vomiting: None Hydration: Adequate Anesthesia-Related Issues: No Anes. Related Issues
== END 2024-03-17 08:50 | disposition home or self-care (01) | DRG 620 ==
LOC: HO.SSSA 11:02 → HO.S3 11:12
PROVIDERS: Physician Assistant Surgical; Admitting Provider Surgery; PCP Internal Medicine; Visit Provider Surgery
PROC: 0DB64Z3 Excision of Stomach, Percutaneous Endoscopic Approach, Vertical (ICD-10-PCS; CPT 43845; principal; 2024-03-16 07:30)
DX: E66.01 Morbid (severe) obesity due to excess calories (principal); Q43.3 Congenital malformations of intestinal fixation; Q85.01 Neurofibromatosis, type 1; Z68.33 Body mass index [BMI] 33.0-33.9, adult; E87.6 Hypokalemia; G47.33 Obstructive sleep apnea (adult) (pediatric); I10 Essential (primary) hypertension; F32.A Depression, unspecified; F41.9 Anxiety disorder, unspecified; F90.9 Attention-deficit hyperactivity disorder, unspecified type; M19.90 Unspecified osteoarthritis, unspecified site; K21.9 Gastro-esophageal reflux disease without esophagitis; G47.00 Insomnia, unspecified; Z79.51 Long term (current) use of inhaled steroids; Z79.899 Other long term (current) drug therapy
CPT/HCPCS: 36415; 80048; 80053; 80061; 83036; 83525; 84443; 85014; 85018; 85025; 85610; 85730; 86140; 86850; 86900; 86901; 88307; 88341; 88342; 93005; A4649; C9088; C9145; J0131; J1100; J1170; J1956; J2250; J2405; J2704; J2795; J3010; J3480; J7120

== ENCOUNTER → 2024-03-16 06:01 | Outpatient (BNV) | payer OTHER, SELFPAY | PROVIDERS: Admitting Provider Surgery; PCP Internal Medicine; Visit Provider Surgery | DX: E66.9 Obesity, unspecified (principal); Z68.33 Body mass index [BMI] 33.0-33.9, adult; Z90.3 Acquired absence of stomach [part of]; Z98.84 Bariatric surgery status | CPT/HCPCS: 43659; 43775; 99024 ==

== ENCOUNTER 2024-03-22 10:56 | Outpatient (AMB) | payer OTHER, SELFPAY ==
--- NOTE | 2024-03-22 11:35 | A.OFFVIS_ITS ---
VS Expanded 03/22/24 11:48 BP 131/80 Blood Pressure Location Rt brachial Blood Pressure Position Sitting Pulse 78 Pulse Source Pulse Oximeter Temp 98.4 F Temperature Source Tympanic Pulse Oximetry 98 Oxygen Delivery Method Room Air Height 5 ft 3 in Weight 179 lb 9.6 oz BMI 31.8 Body Fat % 28.0 Body Fat Mass 50.2 Fat Free Mass 129.2 Visceral Fat Rating 17.0 Body Water % 51.8 Body Water Mass 93.0 Muscle Mass/Score 122.8 Basal Metabolic Rate/Score 1,703 Intake Visit Reasons: (OV) PO LSG 03/16/24 Allergies Penicillins Allergy (Verified 03/22/24 12:02) Unknown HPI Comments Details: 69-year-old male returns to the office today in follow-up, 6 days status post sleeve gastrectomy performed 03/16/2024. He is tolerating 3 celebrate 4 in 1 shakes with 1 scoop each and approximately 35 oz of Gatorade 0. He is moved his bowels. He continues to take lisinopril intermittently based on his systolic blood pressure readings and criteria given to him by Dr. Valdez. [facility] Medical History (Updated 03/16/24 @ 11:05 by Reece Valdez MD) Atrial fibrillation Osteoarthritis DJD (degenerative joint disease) Von Recklinghausen disease GERD (gastroesophageal reflux disease) Anxiety Hyperlipidemia Insomnia Sleep apnea with use of continuous positive airway pressure (CPAP) Obesity Depression ADD (attention deficit disorder) Colon polyp Microscopic hematuria HTN (hypertension) AA (alcohol abuse) BPH (benign prostatic hyperplasia) Surgical History (Updated 03/16/24 @ 11:02 by ELOISA Dias) Hx of tonsillectomy H/O bilateral inguinal hernia repair H/O umbilical hernia repair H/O colonoscopy Family History Mother Throat cancer Paternal Aunt Colon cancer Paternal Grandfather Prostate cancer Social History Household Members: Family Housing: House Are you a primary childcare teacher to a significant other at home: No Do you presently have visiting nurse or other home services: No Alcohol intake: former Patient Tobacco Use Status: Former Tobacco user Quit Date: quit 1977 service: No Physical Exam Vital Signs: Last Vital Signs Temp 98.4 F 03/22/24 11:48 Pulse 78 03/22/24 11:48 BP 131/80 03/22/24 11:48 Pulse Ox 98 03/22/24 11:48 Oxygen Delivery Method Room Air 03/22/24 11:48 BMI result Body Mass Index 31.8 GI Inspection: Yes incision (Clean, dry, intact.) Assessment & Plan Assessment & Plan (1) S/P laparoscopic sleeve gastrectomy: Code(s): Z98.84 - Bariatric surgery status Category: Surgical Plan: POD 6 s/p LSG on 03/16/[address] Valdez Weight loss prior to surgery was 31.9 pounds or 14.3 % TBWL. Original weight on 12/21/2023 was 222.4 pounds and op weight was 190.5 pounds. Be sure to text Dr Valdez exactly 1 week after surgery your weight from your home scale so he can adjust your meal plan. Continue meal plan until f/u [place] in 2 weeks May shower, no submersion in bath for another week Continue abdominal binder with activity and exercise for the next 2 weeks. Exercise prior to surgery was cardio day program and walking outside and may resume No abdominal exercises for 6 weeks post operatively Will be emailed link to post op video for review Reminded of the pace of drinking, 2 mL per minute, 1 oz/15 min.
[2024-03-22 11:48] VITALS: BP 131/80; PULSE 78; TEMP 36.9; O2SAT 98; BMI 31.8
== END 2024-03-22 12:19 | disposition home or self-care (01) ==
PROVIDERS: PCP Internal Medicine; Visit Provider Physician Assistant Surgical
DX: Z98.84 Bariatric surgery status (principal)
CPT/HCPCS: 99024

== ENCOUNTER → 2024-03-22 10:56 | Outpatient (BNVA) | payer OTHER, SELFPAY | PROVIDERS: PCP Internal Medicine; Visit Provider Physician Assistant Surgical | DX: Z48.815 Encounter for surgical aftercare following surgery on the digestive system (principal); Z98.84 Bariatric surgery status | CPT/HCPCS: 99212 ==

== ENCOUNTER 2024-04-04 11:21 | Outpatient (REF) | payer OTHER, SELFPAY ==
[2024-04-04 12:30] LABS: Anion Gap 13 (12-20); Blood Urea Nitrogen 15 mg/dL (9-16); Calcium 9.5 mg/dL (8.4-10.2); Carbon Dioxide 28 mmol/L (22-29); Chloride 106 mmol/L (96-108); Estimated Glomerular Filt Rate > 60; Glucose Random 91 mg/dL (60-115); Potassium 4.9 mmol/L (3.3-5.1); Sodium 142 mmol/L (135-145)
== END 2024-04-04 11:22 | disposition home or self-care (01) ==
LOC: HO.LAB 11:21
PROVIDERS: PCP Internal Medicine; Visit Provider Surgery
DX: E87.6 Hypokalemia (principal)
CPT/HCPCS: 36415; 80048

== ENCOUNTER 2024-04-07 15:15 | Outpatient (AMB) | payer OTHER, SELFPAY ==
--- NOTE | 2024-04-07 15:18 | A.OFFVIS_ITS ---
VS Expanded 04/07/24 15:24 BP 152/67 H Blood Pressure Location Rt brachial Blood Pressure Position Sitting Pulse 69 Pulse Source Pulse Oximeter Temp 96.1 F L Temperature Source Temporal Artery Scan Pulse Oximetry 94 Oxygen Delivery Method Room Air Height 5 ft 3 in Weight 175 lb BMI 31.0 Body Fat % 26.8 Body Fat Mass 47.0 Fat Free Mass 127.8 Visceral Fat Rating 16.0 Body Water % 52.6 Body Water Mass 92.0 Muscle Mass/Score 121.4 Basal Metabolic Rate/Score 1,681 Intake Visit Reasons: (OV) PO LSG 03/16/24 Neon Glass Bender Required: No Allergies Penicillins Allergy (Verified 04/07/24 15:21) Unknown Medication List - Last Reconciled 04/07/24 by ELOISA Dias albuterol sulfate 90 mcg/actuation 2 puffs inhalation Q6H PRN aripiprazole 2 mg PO QAM atorvastatin 20 mg PO BEDTIME bupropion HCl XL 300 mg PO DAILY clonidine HCl 0.1 mg PO BEDTIME docusate sodium 100 mg PO BID PRN felodipine ER 10 mg PO DAILY finasteride 5 mg PO BEDTIME fluticasone propionate 50 mcg/actuation 1 spray intranasal DAILY gabapentin 1 cap PO BEDTIME lancets (OneTouch Delica Plus Lancet) As directed meclizine 25 mg PO TID PRN melatonin 5 mg PO BEDTIME methylphenidate HCl ER 36 mg PO QAM pantoprazole 40 mg PO DAILY sucralfate 10 mL PO BID tadalafil 10 mg PO BEDTIME PRN terazosin 5 mg PO BEDTIME 90 days trazodone 200 mg PO BEDTIME HPI Comments Details: This?a?69?yo male who is s/p LSG without hiatal hernia repair on?03/16/2024. Presents for 3 week post op visit. Weight today is 175 pounds, with a BMI of 31. There has been a 47.4 pound weight loss,(initial weight 222.4 pounds) since starting the program on 12/21/2023 reflecting a 21.3 % total body weight loss and a weight loss of 15.5 pounds since surgery (operative weight 190.5 pounds) reflecting a 8.1 % TBWL since surgery. No complaints of nausea, emesis, abdominal pain or reflux. Reports infrequent but normal bowel movements every 2 days and uses stool softeners regularly. He states that he has no longer taking his lisinopril as his blood pressures have been in the 1 teens over 50s to 60s. He is however continuing his potassium. His Lasix was stopped previously. I instructed him to stop his potassium. Present meal plan includes: 3 celebrate 4 in 1 shakes 1 scoop 8-10 1 scoop 11-1 2 scoops 2-4 ZP bar 5-8 pm Drinkning 40 oz fluids ? Exercise routine includes: 20-25 min aerobics class 5 days per week Planning to join next week [facility] Medical History (Updated 03/16/24 @ 11:05 by Reece Valdez MD) Atrial fibrillation Osteoarthritis DJD (degenerative joint disease) Von Recklinghausen disease GERD (gastroesophageal reflux disease) Anxiety Hyperlipidemia Insomnia Sleep apnea with use of continuous positive airway pressure (CPAP) Obesity Depression ADD (attention deficit disorder) Colon polyp Microscopic hematuria HTN (hypertension) AA (alcohol abuse) BPH (benign prostatic hyperplasia) Surgical History (Updated 04/07/24 @ 15:21 by Saritha Lara CMA) S/P laparoscopic sleeve gastrectomy Hx of tonsillectomy H/O bilateral inguinal hernia repair H/O umbilical hernia repair H/O colonoscopy Family History Mother Throat cancer Paternal Aunt Colon cancer Paternal Grandfather Prostate cancer Social History Household Members: Family Housing: House Are you a primary neonatal intensive care nurse to a significant other at home: No Do you presently have visiting nurse or other home services: No Alcohol intake: former Patient Tobacco Use Status: Former Tobacco user Quit Date: quit 1977 service: No Physical Exam Vital Signs: Last Vital Signs Temp 96.1 F L 04/07/24 15:24 Pulse 69 04/07/24 15:24 BP 152/67 H 04/07/24 15:24 Pulse Ox 94 04/07/24 15:24 Oxygen Delivery Method Room Air 04/07/24 15:24 BMI result Body Mass Index 31.0 Assessment & Plan Assessment & Plan (1) S/P laparoscopic sleeve gastrectomy: Code(s): Z98.84 - Bariatric surgery status Category: Surgical Plan: Overall, satisfied with the meal plan. He will joined [facility] and once he does discuss with Dr. Leon regarding specific exercises. We will have him return to the office in approximately 3 weeks
[2024-04-07 15:24] VITALS: BP 152/67; PULSE 69; TEMP 35.6; O2SAT 94; BMI 31.0
== END 2024-04-07 15:45 | disposition home or self-care (01) ==
PROVIDERS: PCP Internal Medicine; Visit Provider Physician Assistant Surgical
DX: Z98.84 Bariatric surgery status (principal)
CPT/HCPCS: 99024

== ENCOUNTER → 2024-04-07 15:15 | Outpatient (BNVA) | payer OTHER, SELFPAY | PROVIDERS: PCP Internal Medicine; Visit Provider Physician Assistant Surgical | DX: Z48.815 Encounter for surgical aftercare following surgery on the digestive system (principal); Z98.84 Bariatric surgery status | CPT/HCPCS: 99212 ==

== ENCOUNTER 2024-04-18 13:16 | Outpatient (REF) | payer OTHER, SELFPAY | END 2024-04-18 13:17 | disposition home or self-care (01) | LOC: HO.HHCL 13:16 | PROVIDERS: Visit Provider Internal Medicine | DX: Z13.89 Encounter for screening for other disorder (principal) ==

== ENCOUNTER 2024-05-02 13:07 | Outpatient (REF) | payer OTHER, SELFPAY ==
[2024-05-02 16:55] LABS: Prostate Specific Antigen 2.32 ng/mL (<0.05-4.0)
== END 2024-05-02 13:08 | disposition home or self-care (01) ==
LOC: HO.HHCL 13:07
PROVIDERS: Visit Provider Urology
DX: N40.1 Benign prostatic hyperplasia with lower urinary tract symptoms (principal); N13.8 Other obstructive and reflux uropathy; Z12.5 Encounter for screening for malignant neoplasm of prostate
CPT/HCPCS: 36415; 84153

== ENCOUNTER 2024-05-02 13:15 | Outpatient (REF) | payer OTHER, SELFPAY ==
[2024-05-02 16:44] LABS: Creatinine Urine 51.26 mg/dL; Microalbum/Creatinine Ratio Ur 13.6 ug/mg cr (<30)
== END 2024-05-02 13:16 | disposition home or self-care (01) ==
LOC: HO.HHCL 13:15
PROVIDERS: Visit Provider Internal Medicine
DX: Z13.89 Encounter for screening for other disorder (principal)
CPT/HCPCS: 82043; 82570

== ENCOUNTER 2024-05-10 15:45 | Outpatient (AMB) | payer OTHER, SELFPAY ==
[2024-05-10 12:46] VITALS: BMI 29.1
--- NOTE | 2024-05-10 12:46 | MHC.OFFVISWM ---
VS Expanded 05/10/24 12:46 Height 5 ft 3 in Weight 164 lb 6.4 oz BMI 29.1 Body Fat % 27.3 Body Fat Mass 43.7 Fat Free Mass 116.8 Visceral Fat Rating 11 Body Water % 52.5 Body Water Mass 84.4 Muscle Mass/Score 110.8 Intake Visit Reasons: (TV) PO LSG 03/16/24 [employer] Required: No Allergies Penicillins Allergy (Verified 04/07/24 15:21) Unknown Medication List - Last Reconciled 05/10/24 by ELOISA Dias albuterol sulfate 90 mcg/actuation 2 puffs inhalation Q6H PRN aripiprazole 2 mg PO QAM atorvastatin 20 mg PO BEDTIME bupropion HCl XL 300 mg PO DAILY clonidine HCl 0.1 mg PO BEDTIME docusate sodium 100 mg PO BID PRN felodipine ER 10 mg PO DAILY finasteride 5 mg PO BEDTIME fluticasone propionate 50 mcg/actuation 1 spray intranasal DAILY gabapentin 1 cap PO BEDTIME lancets (OneTouch Delica Plus Lancet) As directed meclizine 25 mg PO TID PRN melatonin 5 mg PO BEDTIME methylphenidate HCl ER 36 mg PO QAM pantoprazole 40 mg PO DAILY sucralfate 10 mL PO BID tadalafil 10 mg PO BEDTIME PRN terazosin 5 mg PO BEDTIME 90 days trazodone 200 mg PO BEDTIME HPI Comments Details: This?a?69?yo male who is s/p LSG without hiatal hernia repair on?03/16/2024. Presents for 1 month 3 week post op visit. Weight today is 164.4 pounds, with a BMI of 29.1. There has been a 58 pound weight loss,(initial weight 222.4 pounds) since starting the program on 12/21/2023 reflecting a 26 % total body weight loss and a weight loss of 26.1 pounds since surgery (operative weight 190.5 pounds) reflecting a 13.7 % TBWL since surgery. No complaints of nausea, emesis, abdominal pain or reflux. Reports infrequent but normal bowel movements every 2 days and uses stool softeners regularly. He states that things are going well. He has been following his meal plan and he was introduced to a meal by Dr Leon. He is taking Certavit Sr antioxident MVI once daily and had financial limitations to buy the celebrate mvi. He has gone from a 38 to a 32 inch pant size. Present meal plan includes: 2 celebrate 4 in 1 shakes 1 scoop 8-10 zp bar 11-1 2 scoops 2-4 meal 5 pm 4 forks protein 4 forks veg ZP bar 8-10 pm Drinkning 40 oz fluids ? Exercise routine includes: 20-25 min aerobics class 5 days per week stationary bike 20 min 100 ector daily Planning to join next week [facility] Medical History (Updated 03/16/24 @ 11:05 by Reece Valdez MD) Atrial fibrillation Osteoarthritis DJD (degenerative joint disease) Von Recklinghausen disease GERD (gastroesophageal reflux disease) Anxiety Hyperlipidemia Insomnia Sleep apnea with use of continuous positive airway pressure (CPAP) Obesity Depression ADD (attention deficit disorder) Colon polyp Microscopic hematuria HTN (hypertension) AA (alcohol abuse) BPH (benign prostatic hyperplasia) Surgical History (Updated 04/07/24 @ 15:21 by Saritha Lara CMA) S/P laparoscopic sleeve gastrectomy Hx of tonsillectomy H/O bilateral inguinal hernia repair H/O umbilical hernia repair H/O colonoscopy Family History Mother Throat cancer Paternal Aunt Colon cancer Paternal Grandfather Prostate cancer Social History Household Members: Family Housing: House Are you a primary neonatal intensive care unit nurse to a significant other at home: No Do you presently have visiting nurse or other home services: No Alcohol intake: former Patient Tobacco Use Status: Former Tobacco user service: No Telehealth Telehealth Telehealth Platform: Telephone Location of provider rendering services: practice address Location of patient: address on file Patient Identification confirmed using: Name, : Yes Telehealth method: voice only Patient verbally consented to treatment: Yes Patient verbally consented to billing insurance company: Yes Patient informed of any privacy concerns related to visit: Yes Minutes spent on Phone/Video with Pt.: 15 Assessment & Plan Assessment & Plan (1) S/P laparoscopic sleeve gastrectomy: Code(s): Z98.84 - Bariatric surgery status Category: Surgical Plan: Patient is doing well very well. He will continue the current meal plan. Recommend continuing to communicate. I did suggest a calcium with vitamin-D as the current multivitamin that he takes is slightly low in calcium. I have sent a prescription for this as he is very limited financially. He does plan on joining [employer] when he gets his check at the end of the week. Return to the office in 1 month. Medications: New calcium carbonate-vitamin D3 600 mg-10 mcg (400 unit) (Calcium with Vitamin D) 1 tab PO BID 180 tabs 2RF
== END 2024-05-10 15:46 | disposition home or self-care (01) ==
LOC: HO.HBS 15:45
PROVIDERS: PCP Internal Medicine; Visit Provider Physician Assistant Surgical
DX: Z98.84 Bariatric surgery status (principal)
CPT/HCPCS: 99024

== ENCOUNTER → 2024-05-10 15:45 | Outpatient (BNVA) | payer OTHER, SELFPAY | PROVIDERS: PCP Internal Medicine; Visit Provider Physician Assistant Surgical | DX: Z48.815 Encounter for surgical aftercare following surgery on the digestive system (principal); Z98.84 Bariatric surgery status | CPT/HCPCS: 99212 ==

== ENCOUNTER 2024-06-14 15:42 | Outpatient (AMB) | payer OTHER, SELFPAY ==
--- NOTE | 2024-06-14 14:06 | MHC.OFFVISWM ---
VS Expanded 06/14/24 14:07 Height 5 ft 3 in Weight 159 lb BMI 28.2 Body Fat % 26.9 Intake Visit Reasons: (TV) PO LSG 03/16/24 Allergies Penicillins Allergy (Verified 04/07/24 15:21) Unknown HPI Comments Details: This?a?69?yo male who is s/p LSG without hiatal hernia repair on?03/16/2024. Presents for 2.5 month post op visit. Weight today is 159 pounds, with a BMI of 28.2. There has been a 63.4 pound weight loss,(initial weight 222.4 pounds) since starting the program on 12/21/2023 reflecting a 28.5 % total body weight loss and a weight loss of 31.5 pounds since surgery (operative weight 190.5 pounds) reflecting a 16.5 % TBWL since surgery. No complaints of nausea, emesis, abdominal pain or reflux. Reports infrequent but normal bowel movements every 2 days and uses stool softeners regularly. He states that things are going well. He has been following his meal plan and he was introduced to a meal by Dr Leon. He is taking [employer] Sr antioxident MVI once daily and had financial limitations to buy the celebrate mvi. He has gone from a 38 to a 32 inch pant size. Present meal plan includes: 2 celebrate 4 in 1 shakes 1 scoop 8-10 zp bar 11-1 2 scoops 2-4 meal 5 pm 4 forks protein 4 forks veg ZP bar 8-10 pm Drinking 48 oz fluids ? Exercise routine includes: 20-25 min aerobics class 5 days per week stationary bike 20 min 100 ector daily Joined [facility] Medical History (Updated 03/16/24 @ 11:05 by Reece Valdez MD) Atrial fibrillation Osteoarthritis DJD (degenerative joint disease) Von Recklinghausen disease GERD (gastroesophageal reflux disease) Anxiety Hyperlipidemia Insomnia Sleep apnea with use of continuous positive airway pressure (CPAP) Obesity Depression ADD (attention deficit disorder) Colon polyp Microscopic hematuria HTN (hypertension) AA (alcohol abuse) BPH (benign prostatic hyperplasia) Surgical History (Updated 04/07/24 @ 15:21 by Saritha Lara CMA) S/P laparoscopic sleeve gastrectomy Hx of tonsillectomy H/O bilateral inguinal hernia repair H/O umbilical hernia repair H/O colonoscopy Family History Mother Throat cancer Paternal Aunt Colon cancer Paternal Grandfather Prostate cancer Social History Household Members: Family Housing: House Are you a primary childcare worker to a significant other at home: No Do you presently have visiting nurse or other home services: No Alcohol intake: former Patient Tobacco Use Status: Former Tobacco user service: No Telehealth Telehealth Telehealth Platform: Telephone Location of provider rendering services: practice address Location of patient: address on file Patient Identification confirmed using: Name, : Yes Telehealth method: voice only Patient verbally consented to treatment: Yes Patient verbally consented to billing insurance company: Yes Patient informed of any privacy concerns related to visit: Yes Minutes spent on Phone/Video with Pt.: 12 Assessment & Plan Assessment & Plan (1) S/P laparoscopic sleeve gastrectomy: Code(s): Z98.84 - Bariatric surgery status Category: Surgical Plan: Overall doing well. He does have some limitations with regards to space in the refrigerator, access to fresh fruit, access to the gym. He does go to a daycare program daily and is using the exercise equipment there. We will change his meal plans slightly: 2 celebrate 4 in 1 shakes 1 scoop 8-10 zp bar 11-1 2 scoops 2-4 meal 5 pm 4 forks protein 4 forks veg He did joined [employer] and is going to inquire about his insurance covering for transportation. We will have him return to the office in approximately 1 month. He will text weekly with any questions or concerns.
[2024-06-14 14:07] VITALS: BMI 28.2
== END 2024-06-14 16:04 | disposition home or self-care (01) ==
LOC: HO.HBS 15:42
PROVIDERS: PCP Internal Medicine; Visit Provider Physician Assistant Surgical
DX: Z98.84 Bariatric surgery status (principal)
CPT/HCPCS: 99024

== ENCOUNTER → 2024-06-14 15:42 | Outpatient (BNVA) | payer OTHER, SELFPAY | PROVIDERS: PCP Internal Medicine; Visit Provider Physician Assistant Surgical | DX: Z48.815 Encounter for surgical aftercare following surgery on the digestive system (principal); Z98.84 Bariatric surgery status | CPT/HCPCS: 99212 ==

== ENCOUNTER 2024-07-13 12:54 | Outpatient (AMB) | payer OTHER, SELFPAY ==
[2024-07-13 12:36] VITALS: BMI 27.2
--- NOTE | 2024-07-13 12:36 | A.OFFVIS_ITS ---
VS Expanded 07/13/24 12:36 Height 5 ft 3 in Weight 153 lb 6 oz BMI 27.2 Intake Visit Reasons: (TV) PO LSG 03/16/24 [employer] Required: No Allergies Penicillins Allergy (Verified 04/07/24 15:21) Unknown Medication List - Last Reconciled 07/13/24 by ELOISA Dias albuterol sulfate 90 mcg/actuation 2 puffs inhalation Q6H PRN aripiprazole 2 mg PO QAM atorvastatin 20 mg PO BEDTIME bupropion HCl XL 300 mg PO DAILY calcium carbonate-vitamin D3 600 mg-10 mcg (400 unit) (Calcium with Vitamin D) 1 tab PO BID clonidine HCl 0.1 mg PO BEDTIME docusate sodium 100 mg PO BID PRN felodipine ER 10 mg PO DAILY finasteride 5 mg PO BEDTIME fluticasone propionate 50 mcg/actuation 1 spray intranasal DAILY gabapentin 1 cap PO BEDTIME lancets (OneTouch Delica Plus Lancet) As directed meclizine 25 mg PO TID PRN melatonin 5 mg PO BEDTIME methylphenidate HCl ER 36 mg PO QAM tadalafil 10 mg PO BEDTIME PRN terazosin 5 mg PO BEDTIME 90 days trazodone 200 mg PO BEDTIME HPI Comments Details: This?a?69?yo male who is s/p LSG without hiatal hernia repair on?03/16/2024. Presents for 3 month post op visit. Weight today is 153.6 pounds, with a BMI of 27.2. There has been a 68.8 pound weight loss,(initial weight 222.4 pounds) since starting the program on 12/21/2023 reflecting a 30.9 % total body weight loss and a weight loss of 36.9 pounds since surgery (operative weight 190.5 pounds) reflecting a 19.3 % TBWL since surgery. No complaints of nausea, emesis, abdominal pain or reflux. Reports infrequent but normal bowel movements every 2 days and uses stool softeners regularly. He states that things are going well. He has been following his meal plan and he was introduced to a meal by Dr Leon. He is taking Certavit Sr antioxident MVI once daily. He has gone from a 38 to a 32 inch pant size. Present meal plan includes: 2 celebrate 4 in 1 shakes 1 scoop 8-10 zp bar 11-1 2 scoops 2-4 meal 5 pm 4 forks protein 4 forks veg Drinking 48 oz fluids ? Exercise routine includes: 20-25 min aerobics class 5 days per week stationary bike 20 min 100 ector daily Joined [facility] Medical History (Updated 07/13/24 @ 12:50 by ELOISA Dias) Atrial fibrillation Osteoarthritis DJD (degenerative joint disease) Von Recklinghausen disease GERD (gastroesophageal reflux disease) Anxiety Hyperlipidemia Insomnia Sleep apnea with use of continuous positive airway pressure (CPAP) Obesity Depression ADD (attention deficit disorder) Colon polyp Microscopic hematuria HTN (hypertension) AA (alcohol abuse) BPH (benign prostatic hyperplasia) Surgical History (Updated 04/07/24 @ 15:21 by Saritha Lara CMA) S/P laparoscopic sleeve gastrectomy Hx of tonsillectomy H/O bilateral inguinal hernia repair H/O umbilical hernia repair H/O colonoscopy Family History Mother Throat cancer Paternal Aunt Colon cancer Paternal Grandfather Prostate cancer Social History Household Members: Family Housing: House Are you a primary plant health care technician to a significant other at home: No Do you presently have visiting nurse or other home services: No Alcohol intake: former Patient Tobacco Use Status: Former Tobacco user service: No Assessment & Plan Assessment & Plan (1) Overweight (BMI 25.0-29.9): Code(s): E66.3 - Overweight Category: Medical Plan: Overall, making good progress. He does state sometimes he is hungry in the morning. Suggested switching to have 2 scoops in the morning and 1 scoop in the afternoon of his shake. He is satisfied with the meal plan and does not wish to change at this point. He is enquiring about solutions to get to the gym as he has joined [employer] which was a benefit of his insurance. We will have him return to the office in approximately 1 month
== END 2024-07-13 13:24 | disposition home or self-care (01) ==
LOC: HO.HBS 12:54
PROVIDERS: PCP Internal Medicine; Visit Provider Physician Assistant Surgical
DX: E66.3 Overweight (principal)
CPT/HCPCS: 99213

== ENCOUNTER → 2024-07-13 12:54 | Outpatient (BNVA) | payer OTHER, SELFPAY | PROVIDERS: PCP Internal Medicine; Visit Provider Physician Assistant Surgical | DX: E66.3 Overweight (principal) ==

== ENCOUNTER → 2024-08-14 15:00 | Outpatient (BNVA) | payer OTHER, SELFPAY | PROVIDERS: PCP Internal Medicine; Visit Provider Physician Assistant Surgical ==

== ENCOUNTER 2024-08-14 15:17 | Outpatient (AMB) | payer OTHER, SELFPAY ==
[2024-08-14 09:00] VITALS: BMI 25.9
--- NOTE | 2024-08-14 09:00 | MHC.OFFVISWM ---
VS Expanded 08/14/24 09:00 Height 5 ft 3 in Weight 146 lb 8 oz BMI 25.9 Body Fat % 23.5 Body Fat Mass 34.4 Fat Free Mass 112.2 Visceral Fat Rating 8 Body Water % 55.2 Body Water Mass 81 Muscle Mass/Score 106.4 Basal Metabolic Rate/Score 1,469 Intake Visit Reasons: (TV) PO LSG 03/16/24 Allergies Penicillins Allergy (Verified 04/07/24 15:21) Unknown HPI Comments Details: This?a?69?yo male who is s/p LSG without hiatal hernia repair on?03/16/2024. Presents for 5 month post op visit. Weight today is 146.8 pounds, with a BMI of 26. There has been a 75.6 pound weight loss,(initial weight 222.4 pounds) since starting the program on 12/21/2023 reflecting a 33.9 % total body weight loss and a weight loss of 43.7 pounds since surgery (operative weight 190.5 pounds) reflecting a 22.9 % TBWL since surgery. No complaints of nausea, emesis, abdominal pain or reflux. Reports infrequent but normal bowel movements every 2 days and uses stool softeners regularly. He states that things are going well. He has been following his meal plan and he was introduced to a meal by Dr Leon. He is taking Certavit Sr antioxident MVI once daily. He has gone from a 38 to a 32 inch pant size. 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 Exercise routine includes: 20-25 min aerobics class 5 days per week stationary bike 20 min 100 ector daily Joined [facility] Medical History (Updated 07/18/24 @ 15:07 by Jennie Holguin RN) Diabetes Atrial fibrillation Osteoarthritis DJD (degenerative joint disease) Von Recklinghausen disease GERD (gastroesophageal reflux disease) Anxiety Hyperlipidemia Insomnia Sleep apnea with use of continuous positive airway pressure (CPAP) Obesity Depression ADD (attention deficit disorder) Colon polyp Microscopic hematuria HTN (hypertension) AA (alcohol abuse) BPH (benign prostatic hyperplasia) Surgical History (Updated 07/18/24 @ 15:03 by Jennie Holguin RN) History of esophagogastroduodenoscopy (EGD) S/P laparoscopic sleeve gastrectomy Hx of tonsillectomy H/O bilateral inguinal hernia repair H/O umbilical hernia repair H/O colonoscopy Family History (Updated 07/14/24 @ 08:20 by ELOISA Dias) Mother Throat cancer Paternal Aunt Colon cancer Maternal Grandfather No problems noted. Social History Household Members: Family Housing: House Are you a primary youth care professional to a significant other at home: No Do you presently have visiting nurse or other home services: No Alcohol intake: former Patient Tobacco Use Status: Former Tobacco user service: No Telehealth Telehealth Telehealth Platform: Telephone Location of provider rendering services: practice address Location of patient: address on file Patient Identification confirmed using: Name, : Yes Telehealth method: voice only Patient verbally consented to treatment: Yes Patient verbally consented to billing insurance company: Yes Patient informed of any privacy concerns related to visit: Yes Minutes spent on Phone/Video with Pt.: 12 Assessment & Plan Assessment & Plan (1) S/P laparoscopic sleeve gastrectomy: Code(s): Z98.84 - Bariatric surgery status Category: Surgical Plan: Patient wishes to have his meal plan change slightly to exclude the bar 2 celebrate 4 in 1 shakes 2 scoop 8-10 Welsh yogurt or meal with 4 forks protein and 4 forks veggies 11-1 1 scoops 2-4 meal 5 pm 4 forks protein 4 forks veg Encouraged to continue his exercise routine as he is able. He is going to follow-up with his insurance company regarding possible ride for accessibility to the gym.
== END 2024-08-14 15:19 | disposition home or self-care (01) ==
PROVIDERS: PCP Internal Medicine; Visit Provider Physician Assistant Surgical
DX: E66.3 Overweight (principal); Z98.84 Bariatric surgery status; Z68.25 Body mass index [BMI] 25.0-25.9, adult
CPT/HCPCS: 99442

== ENCOUNTER 2024-09-19 10:43 | Day surgery (SDC) | payer OTHER, SELFPAY ==
[2024-07-18 15:08] VITALS: BMI 39.8
--- NOTE | 2024-09-18 12:28 | HO.ANESPROP2 ---
Documented by User: Rosita He NP 09/18/24 12:30 HPI - Anesthesia Eval Consult details Narrative: 69yo M for Colonoscopy s/p gastric sleeve 03/2024 Pt reports rare afib. 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 Holter and EKG without afib PMFSH Active Problems Active Problems: All Active Problems Overweight (BMI 25.0-29.9) (Acute) BMI 33.0-33.9,adult (Acute) Hypokalemia (Acute) Alcohol use disorder, severe, in sustained remission (Acute) BMI 39.0-39.9,adult (Acute) Lymphedema (Acute) Varicose veins of left lower extremity with inflammation (Acute) Vertigo (Acute) Pre-op examination (Acute) Tubular adenoma of colon (Acute) Bursitis of left hip (Acute) Cervical lymphadenopathy (Acute) Neurofibromatosis (Acute) Varicose veins of ankle (Acute) Chronic fatigue (Acute) Diabetes (Acute) Erectile dysfunction (Acute) Weak urinary stream (Acute) Incomplete emptying of bladder due to benign prostatic hyperplasia (Acute) BPH w urinary obs/LUTS (Acute) ADD (attention deficit disorder) (Acute) S/P laparoscopic sleeve gastrectomy (Acute) DJD (degenerative joint disease) (Acute) Von Recklinghausen disease (Acute) BPH (benign prostatic hyperplasia) (Acute) GERD (gastroesophageal reflux disease) (Acute) Anxiety (Acute) Depression (Acute) Hyperlipidemia (Acute) HTN (hypertension) (Acute) Insomnia (Acute) Sleep apnea with use of continuous positive airway pressure (CPAP) (Acute) Obesity (Acute) AA (alcohol abuse) (Acute) Past Medical History Medical History Diabetes Atrial fibrillation Osteoarthritis DJD (degenerative joint disease) Von Recklinghausen disease GERD (gastroesophageal reflux disease) Anxiety Hyperlipidemia Insomnia Sleep apnea with use of continuous positive airway pressure (CPAP) Obesity Depression ADD (attention deficit disorder) Colon polyp Microscopic hematuria HTN (hypertension) AA (alcohol abuse) BPH (benign prostatic hyperplasia) Family History Family History Mother Throat cancer Paternal Aunt Colon cancer Maternal Grandfather No problems noted. Family history of problems with anesthesia: No Surgical History Surgical History History of esophagogastroduodenoscopy (EGD) S/P laparoscopic sleeve gastrectomy Hx of tonsillectomy H/O bilateral inguinal hernia repair H/O umbilical hernia repair H/O colonoscopy History of Problems with Anesthesia: No Social History Social History Household Members: Family Housing: House Are you a primary skin care instructor to a significant other at home: No Do you presently have visiting nurse or other home services: No Alcohol intake: former Patient Tobacco Use Status: Former Tobacco user service: No Meds Allergies Allergy/AdvReac Type Severity Reaction Status Date / Time Penicillins Allergy Unknown Verified 04/07/24 15:21 Home Medications ?Medication ?Instructions ?Recorded ?Confirmed ?Last Taken ?Type atorvastatin 20 mg tablet 20 mg PO BEDTIME 05/29/22 07/18/24 12/08/22 History clonidine HCl 0.1 mg tablet 0.1 mg PO BEDTIME 05/29/22 07/18/24 12/08/22 History felodipine 10 mg tablet,extended 10 mg PO DAILY 05/29/22 07/18/24 03/16/24 History release 24 hr melatonin 5 mg tablet 5 mg PO BEDTIME 05/29/22 07/18/24 12/08/22 History trazodone 100 mg tablet 200 mg PO BEDTIME 05/29/22 07/18/24 12/08/22 History gabapentin 300 mg capsule 1 cap PO BEDTIME 12/09/22 07/18/24 12/09/22 History lancets 33 gauge (OneTouch Delica #100 ea 01/22/23 07/13/24 Unknown History Plus Lancet) bupropion HCl 300 mg 24 hr tablet, 300 mg PO DAILY 09/30/23 07/18/24 03/16/24 History extended release docusate sodium 100 mg capsule 100 mg PO BID PRN Constipation 09/30/23 07/18/24 Unknown History fluticasone propionate 50 1 spray intranasal DAILY 09/30/23 07/18/24 Unknown History mcg/actuation nasal spray,suspension albuterol sulfate 90 mcg/actuation 2 puff inhalation Q6H PRN 12/21/23 07/18/24 Unknown History aerosol inhaler Shortness Of Breath Or Wheezing aripiprazole 2 mg tablet 2 mg PO QAM 03/07/24 07/18/24 03/16/24 History finasteride 5 mg tablet 5 mg PO BEDTIME 03/07/24 07/18/24 Unknown History meclizine 25 mg tablet 25 mg PO TID PRN dizziness 03/07/24 07/18/24 Unknown History methylphenidate HCl 36 mg 36 mg PO QAM 03/07/24 07/18/24 Unknown History tablet,extended release 24 hr tadalafil 10 mg tablet 10 mg PO BEDTIME PRN sexual 03/07/24 07/18/24 Unknown History activity Exam Height,Weight and Vital Signs: Height 5 ft 4 in Weight 105.233 kg Pertinent Lab Results Pertinent Lab Results: Laboratory Tests 03/17/24 04/04/24 05:29 11:33 WBC 10.9 H Hgb 14.0 Hct 39.7 L Plt Count 160 Sodium 142 Potassium 4.9 D Chloride 106 Carbon Dioxide 28 BUN 15 Creatinine 0.84 Narrative Narrative: EKG 02/2024 Vent. Rate : 067 BPM Atrial Rate : 067 BPM P-R Int : 180 ms QRS Dur : 110 ms QT Int : 448 ms P-R-T Axes : 032 -16 032 degrees QTc Int : 473 ms Normal sinus rhythm Minimal voltage criteria for LVH, may be normal variant ( [place] product ) Borderline ECG When compared with ECG of 09-MAR-2024 13:06, Minimal criteria for Anterior infarct are no longer Present Holter 01/2024 1. Patient was monitored for total period of 2 days and 20 hours 2. Baseline was normal sinus rhythm with average heart of 64 beats per minute 3. No significant pauses noted 4. Frequent PACs noted with total burden of 3.8%, mostly isolated 5. Patient reported 3 events of dizziness correlating with sinus rhythm with PACs Assessment and Plan Assessment Anesthesia Assessment: Chart Reviewed Final Anesthetic Review Family History of Problems with Anesthesia: No History of Problems with Anesthesia: No Documented by User: Say Avila MD 09/19/24 14:13 [facility] Past Medical History Medical History Diabetes Atrial fibrillation Osteoarthritis DJD (degenerative joint disease) Von Recklinghausen disease GERD (gastroesophageal reflux disease) Anxiety Hyperlipidemia Insomnia Sleep apnea with use of continuous positive airway pressure (CPAP) Obesity Depression ADD (attention deficit disorder) Colon polyp Microscopic hematuria HTN (hypertension) AA (alcohol abuse) BPH (benign prostatic hyperplasia) Family History Family History Mother Throat cancer Paternal Aunt Colon cancer Maternal Grandfather No problems noted. Surgical History Surgical History History of esophagogastroduodenoscopy (EGD) S/P laparoscopic sleeve gastrectomy Hx of tonsillectomy H/O bilateral inguinal hernia repair H/O umbilical hernia repair H/O colonoscopy Social History Social History Household Members: Family Housing: House Are you a primary skin care instructor to a significant other at home: No Do you presently have visiting nurse or other home services: No Alcohol intake: former Patient Tobacco Use Status: Former Tobacco user service: No Meds Allergies Allergy/AdvReac Type Severity Reaction Status Date / Time Penicillins Allergy Unknown Verified 04/07/24 15:21 Home Medications ?Medication ?Instructions ?Recorded ?Confirmed ?Last Taken ?Type atorvastatin 20 mg tablet 20 mg PO BEDTIME 05/29/22 07/18/24 12/08/22 History clonidine HCl 0.1 mg tablet 0.1 mg PO BEDTIME 05/29/22 07/18/24 12/08/22 History felodipine 10 mg tablet,extended 10 mg PO DAILY 05/29/22 07/18/24 03/16/24 History release 24 hr melatonin 5 mg tablet 5 mg PO BEDTIME 05/29/22 07/18/24 12/08/22 History trazodone 100 mg tablet 200 mg PO BEDTIME 07/15/22 09/03/24 01/24/23 History gabapentin 300 mg capsule 1 cap PO BEDTIME 12/09/22 07/18/24 12/09/22 History lancets 33 gauge (Justin Torres #100 ea 01/22/23 07/13/24 Unknown History Plus Lancet) bupropion HCl 300 mg 24 hr tablet, 300 mg PO DAILY 09/30/23 07/18/24 03/16/24 History extended release docusate sodium 100 mg capsule 100 mg PO BID PRN Constipation 09/30/23 07/18/24 Unknown History fluticasone propionate 50 1 spray intranasal DAILY 09/30/23 07/18/24 Unknown History mcg/actuation nasal spray,suspension albuterol sulfate 90 mcg/actuation 2 puff inhalation Q6H PRN 12/21/23 07/18/24 Unknown History aerosol inhaler Shortness Of Breath Or Wheezing aripiprazole 2 mg tablet 2 mg PO QAM 03/07/24 07/18/24 03/16/24 History finasteride 5 mg tablet 5 mg PO BEDTIME 03/07/24 07/18/24 Unknown History meclizine 25 mg tablet 25 mg PO TID PRN dizziness 03/07/24 07/18/24 Unknown History methylphenidate HCl 36 mg 36 mg PO QAM 03/07/24 07/18/24 Unknown History tablet,extended release 24 hr tadalafil 10 mg tablet 10 mg PO BEDTIME PRN sexual 03/07/24 07/18/24 Unknown History activity Exam Airway Mallampati Class: II TM Dist: >3cm Neck ROM: Full Loose/Missing/Broken Teeth: Yes Assessment and Plan Assessment Anesthesia Assessment: Anesthesia Plan Discussed Final Anesthetic Review NPO: Yes ASA Class: III Final Preanesthetic Review: No Changes in Pt Med Stat, Meds/Allgs Chart Reviewed, Consent Obtained/Reviewed and Anes Risks/Benef Reviewed Patient Risk: Intermediate Procedure Risk: Low Anesthetic Plan Anesthetic Plan: MAC: Disposition: Standard PACU
[2024-09-19 10:52] VITALS: BMI 27.5
[2024-09-19 11:08] LABS: Glucose, Whole Blood 84 mg/dL (60-115)
[2024-09-19] MEDS: Lactated Ringers 1,000 ML 100 ML IVCONT (11:37)
--- NOTE | 2024-09-19 11:46 | MHC.SHP ---
Pre-Procedural Eval Section A - 24 Hr Update-Section A only Date of Service: 09/19/24 Section B - Complete if H&P > 30 days Chief Complaint: Benign neoplasm of colon, unspecified Relevant Family History (Specify if Yes): No Relevant Social History: None Present Medications: see Short Stay Collaborative assessment Medical History: Significant History (Diabetes Atrial fibrillation Osteoarthritis DJD (degenerative joint disease) Von Recklinghausen disease GERD (gastroesophageal reflux disease) Anxiety Hyperlipidemia Insomnia Sleep apnea with use of continuous positive airway pressure (CPAP) Obesity Depression ADD (attention deficit disorder) Colon ) History of Previous Operations: Relevant previous surgery/procedure and date(s) (History of esophagogastroduodenoscopy (EGD) S/P laparoscopic sleeve gastrectomy Hx of tonsillectomy H/O bilateral inguinal hernia repair H/O umbilical hernia repair H/O colonoscopy) Allergies: Allergies Allergy/AdvReac Type Severity Reaction Status Date / Time Penicillins Allergy Unknown Verified 04/07/24 15:21 Review of Systems Sugical H&P ROS: Negative: Constitution, Cardiovascular, Respiratory, Neurological, Psychiatric, Hem-Onc, Allergic/Immunologic, Gastrointestinal, Genitourinary, Musculoskeletal, Integumentary, Endocrine and Eyes/Ears/Nose/Throat Exam Surgical H&P Exam: Normal: HEENT, Normal: Heart, Normal: Lungs, Normal: Extremities, Normal: Abdomen, Normal: Skin and Normal: Neurological Plan Diagnosis/Plan: Unchanged I have reviewed the history and physical and performed a pertinent physical examination on my patient. No changes have occurred unless specified. Time Spent With Patient Time: Total time managing care of this patient today ____ minutes.
--- NOTE | 2024-09-19 12:21 | HO.OPN-COLON ---
Colonoscopy Operative Note Operative Note Date of Service: 09/19/24 Narrative: Operative Information Procedure Description: Colonoscopy Indication: screening Anesthesia: MAC COLONOSCOPY Instrument: Olympus variable stiffness pediatric scope 190L Colonoscopy Monitoring: Vital signs and clinical assessment, continuous EKG monitoring, Pulse oximetry, Carbon Dioxide monitoring and blood pressure monitoring were done throughout the procedure. Colon withdrawal time was 8 minutes. Procedure: The patient was placed in the left lateral decubitis position and pre-procedure medications were administered. After a digital rectal examination of the ano-rectum, the video colonoscope was inserted into the rectum and advanced through the colon to the cecum/TI. The colonoscope was slowly withdrawn in a retrograde panoramic fashion and the colon mucosa was carefully examined including a retroflexed view of the rectum. Findings and interventions are described below. Procedure Difficulty: moderate, looping Findings: Terminal Ileum-not intubated Cecum:normal Ascending Colon: normal Transverse Colon -normal Descending Colon:normal Sigmoid Colon: severe diverticulosis Rectum: Retroflexion with small to medium internal hemorrhoids seen, grade I Anorectum - normal Intervention: none Colon preparation: [place] Bowel Preparation Scale Right colon; 1-2 Transverse colon: 2 Left colon; 1-2 (0 = Unprepared colon segment with mucosa not seen due to solid stool that cannot be cleared. 1 = Portion of mucosa of the colon segment seen, but other areas of the colon segment not well seen due to staining, residual stool and/or opaque liquid. 2 = Minor amount of residual staining, small fragments of stool and/or opaque liquid, but mucosa of colon segment seen well. 3 = Entire mucosa of colon segment seen well with no residual staining, small fragments of stool or opaque liquid) Impression and Post Procedure Diagnosis: diverticulosis internal hemorrhoids Plan: High fiber diet leaflet Avoid straining at stool, epsom salts and sitz bath, anusol supps or cream Repeat Colonoscopy in 1 year or earlier if clinically indicated, next time avoid nuts and corn for 1 week and maybe 2 d of clears Above findings were reviewed with the patient and relevant handouts were provided if indicated.
[2024-09-19 12:25] VITALS: BP 122/40; PULSE 54; RESP 16; TEMP 36.4; O2SAT 96
[2024-09-19 12:45] VITALS: BP 131/56; PULSE 60; RESP 14; TEMP 36.9; O2SAT 97
== END 2024-09-19 13:19 | disposition home or self-care (01) ==
PROVIDERS: PCP Internal Medicine; Visit Provider Internal Medicine Gastroenterology
PROC: 0DJD8ZZ Inspection of Lower Intestinal Tract, Via Natural or Artificial Opening Endoscopic (ICD-10-PCS; CPT 45378; principal; 2024-09-19 13:20)
DX: Z12.11 Encounter for screening for malignant neoplasm of colon (principal); K57.30 Diverticulosis of large intestine without perforation or abscess without bleeding; K64.0 First degree hemorrhoids; Z86.0101 Personal history of adenomatous and serrated colon polyps; E11.9 Type 2 diabetes mellitus without complications; I10 Essential (primary) hypertension; E78.5 Hyperlipidemia, unspecified; J45.909 Unspecified asthma, uncomplicated; G47.33 Obstructive sleep apnea (adult) (pediatric); F10.10 Alcohol abuse, uncomplicated; Q85.00 Neurofibromatosis, unspecified; Z87.891 Personal history of nicotine dependence; Z79.02 Long term (current) use of antithrombotics/antiplatelets; Z79.899 Other long term (current) drug therapy; Z99.89 Dependence on other enabling machines and devices
CPT/HCPCS: G0105; 82947; J2003; J2704

== ENCOUNTER → 2024-09-19 10:43 | Outpatient (BNV) | payer OTHER, SELFPAY | PROVIDERS: PCP Internal Medicine; Visit Provider Internal Medicine Gastroenterology | DX: Z12.11 Encounter for screening for malignant neoplasm of colon (principal); Z86.0100 Personal history of colon polyps, unspecified; K57.30 Diverticulosis of large intestine without perforation or abscess without bleeding; K64.0 First degree hemorrhoids | CPT/HCPCS: G0105 ==

== ENCOUNTER 2024-09-22 13:30 | Outpatient (AMB) | payer OTHER, SELFPAY ==
--- NOTE | 2024-09-22 08:24 | A.OFFVIS_ITS ---
VS Expanded 09/22/24 08:27 Height 5 ft 3 in Weight 145 lb 2 oz BMI 25.7 Body Fat % 23.1 Fat Free Mass 111.6 Visceral Fat Rating 8 Body Water % 55.5 Muscle Mass/Score 106 Intake Visit Reasons: (TV) PO LSG 03/16/24 Allergies Penicillins Allergy (Verified 04/07/24 15:21) Unknown HPI Comments Details: This?a?69?yo male who is s/p LSG without hiatal hernia repair on?03/16/2024. Pres ents for 7 month post op visit. Weight today is 145.2 pounds, with a BMI of 25.7. There has been a 77.2 pound weight loss,(initial weight 222.4 pounds) since starting the program on 12/21/2023 reflecting a 34.7 % total body weight loss and a weight loss of 45.3 pounds since surgery (operative weight 190.5 pounds) reflecting a 23.7 % TBWL since surgery. No complaints of nausea, emesis, abdominal pain or reflux. Reports infrequent but normal bowel movements every 2 days and uses stool softeners regularly. He states that things are going well. He has been following his meal plan and he was introduced to a meal by Dr Leon. He is taking Certavit Sr antioxident MVI once daily. He has gone from a 38 to a 32 inch pant size. Present meal plan includes: 2 celebrate 4 in 1 shakes 2 scoop 8-10 Indonesian yogurt or meal with 4 forks protein and 4 forks veggies 11-1 1 scoops 2-4 meal 5 pm 4 forks protein 4 forks veg Drinking 48 oz fluids ? Exercise routine includes: 20-25 min aerobics class 5 days per week stationary bike 20 min 100 ector daily Joined [facility] Medical History Diabetes Atrial fibrillation Osteoarthritis DJD (degenerative joint disease) Von Recklinghausen disease GERD (gastroesophageal reflux disease) Anxiety Hyperlipidemia Insomnia Sleep apnea with use of continuous positive airway pressure (CPAP) Obesity Depression ADD (attention deficit disorder) Colon polyp Microscopic hematuria HTN (hypertension) AA (alcohol abuse) BPH (benign prostatic hyperplasia) Surgical History History of esophagogastroduodenoscopy (EGD) S/P laparoscopic sleeve gastrectomy Hx of tonsillectomy H/O bilateral inguinal hernia repair H/O umbilical hernia repair H/O colonoscopy Family History Mother Throat cancer Paternal Aunt Colon cancer Maternal Grandfather No problems noted. Social History Household Members: Family Housing: House Are you a primary family member caretaker to a significant other at home: No Do you presently have visiting nurse or other home services: No Alcohol intake: former Patient Tobacco Use Status: Former Tobacco user service: No Physical Exam Vital Signs: BMI result Body Mass Index 25.7 Telehealth Telehealth Telehealth Platform: Telephone Location of provider rendering services: practice address Location of patient: address on file Patient Identification confirmed using: Name, : Yes Telehealth method: voice only Patient verbally consented to treatment: Yes Patient verbally consented to billing insurance company: Yes Patient informed of any privacy concerns related to visit: Yes Minutes spent on Phone/Video with Pt.: 12 Assessment & Plan Assessment & Plan (1) S/P laparoscopic sleeve gastrectomy: Code(s): Z98.84 - Bariatric surgery status Category: Medical Plan: Patient is doing very well. He is satisfied with his meal plan. He is exercising although is going to try to coordinate getting to [employer]. He does need to take a bus to do so. He offers no complaints and is overall very satisfied with his progress and his current weight. He will continue with the same meal plan and exercise plan, noting that he will try to get to [employer] to begin to do weight training to increase muscle tone.
[2024-09-22 08:27] VITALS: BMI 25.7
== END 2024-09-22 13:58 | disposition home or self-care (01) ==
LOC: HO.HBS 13:49
PROVIDERS: PCP Internal Medicine; Visit Provider Physician Assistant Surgical
DX: Z71.3 Dietary counseling and surveillance (principal); Z98.84 Bariatric surgery status; Z90.3 Acquired absence of stomach [part of]
CPT/HCPCS: 98967

== ENCOUNTER → 2024-09-22 13:30 | Outpatient (BNVA) | payer OTHER, SELFPAY | PROVIDERS: PCP Internal Medicine; Visit Provider Physician Assistant Surgical | DX: Z98.84 Bariatric surgery status (principal) ==

== ENCOUNTER 2024-09-30 16:34 | Outpatient (REF) | payer OTHER, SELFPAY ==
[2024-09-30] MEDS: gadobutroL 7.5 ML VIAL IVPUSH (17:18)
== END 2024-09-30 16:35 | disposition home or self-care (01) ==
LOC: HO.MRI 16:34
PROVIDERS: PCP Internal Medicine; Visit Provider Internal Medicine
DX: Q85.01 Neurofibromatosis, type 1 (principal)
CPT/HCPCS: 70553; A9585

== ENCOUNTER 2024-10-03 12:12 | Outpatient (REF) | payer OTHER, SELFPAY ==
[2024-10-03 14:39] LABS: TSH reflex Free T4 1.14 uIU/mL (0.32-4.0)
== END 2024-10-03 12:13 | disposition home or self-care (01) ==
LOC: HO.HHCL 12:12
PROVIDERS: Visit Provider Internal Medicine
DX: I49.9 Cardiac arrhythmia, unspecified (principal)
CPT/HCPCS: 36415; 84443

== ENCOUNTER 2024-10-26 11:40 | Outpatient (AMB) | payer OTHER, SELFPAY ==
--- NOTE | 2024-10-26 11:42 | A.OFFVIS_ITS ---
Intake Visit Reasons: 1Y PSA/PVR(SET) Intake Note: Patient is present for 1Y PSA/PVR Urology Medication:TERAZOSIN Antibiotic Allergy:PENICILLIN Blood Thinner:NONE TODAY'S PVR:0ML'S Application Integration Engineer Required: No Allergies Penicillins Allergy (Verified 10/26/24 11:45) Unknown HPI Comments Details: Dane is a pleasant male. He is a patient of . He is seen for the following urologic conditions - incomplete bladder emptying - lower urinary tract symptoms - erectile dysfunction Yearly follow-up Current therapy finasteride Will stop terazosin Refill tadalafil Minimal impact from high-dose daily and on demand medication Discussed penile pump versus injections At this stage will not be treated 06/06 T 645 Erectile dysfunction Current therapy daily 10 mg with up to 20 mg on demand Prior therapy low-dose tadalafil Other medications include citalopram, bupropion, gabapentin Lower urinary tract symptoms Current therapy combination finasteride with terazosin Prior therapy with tamsulosin Incomplete emptying PVR 65 Weak stream Occasional nocturia Background of heavy alcohol use Cystoscopy 08/06 long prostate with bilateral lobes Therapeutic plan - combination therapy in addition of finasteride [facility] Medical History Diabetes Atrial fibrillation Osteoarthritis DJD (degenerative joint disease) Von Recklinghausen disease GERD (gastroesophageal reflux disease) Anxiety Hyperlipidemia Insomnia Sleep apnea with use of continuous positive airway pressure (CPAP) Obesity Depression ADD (attention deficit disorder) Colon polyp Microscopic hematuria HTN (hypertension) AA (alcohol abuse) BPH (benign prostatic hyperplasia) Surgical History History of esophagogastroduodenoscopy (EGD) S/P laparoscopic sleeve gastrectomy Hx of tonsillectomy H/O bilateral inguinal hernia repair H/O umbilical hernia repair H/O colonoscopy Family History Mother Throat cancer Paternal Aunt Colon cancer Maternal Grandfather No problems noted. Social History Household Members: Family Housing: House Are you a primary primary care sales representative to a significant other at home: No Do you presently have visiting nurse or other home services: No Alcohol intake: former Patient Tobacco Use Status: Former Tobacco user service: No Review of Systems Const Denies chills and Denies fever(s) Card Reports no additional complaints and Denies syncope Resp Denies cough GI Denies abdominal pain and Denies heartburn Reports as per HPI and Denies change in libido Neuro Denies syncope Psych Denies change in libido Endo Denies change in libido Physical Exam Const General: cooperative, healthy appearing, comfortable and no acute distress Orientation/consciousness: patient oriented x3 HEENT Face and sinus: Yes normal facial exam Mouth: moist mucous membranes Neck Neck: Yes normal visual inspection, Yes full ROM and Yes trachea midline Chest Chest palpation & inspection: normal inspection of the chest Resp Effort & Inspection: normal respiratory effort, able to speak in complete sentences and no respiratory distress GI Inspection: Yes normal to inspection Back/Spine/Pelvis Cervical Spine: normal cervical lordosis Thoracic/Lumbar Spine: thoracic and lumbar spine normal to inspection Skin General skin exam: no rashes or lesions noted Neuro General: patient oriented x3, gait normal, tone normal and moves all extremities Extrem General: Yes normal to inspection and Yes capillary refill normal Office Procedures Post Void Residual Post Residual Void Post Void Residual (PVR): 0 [id number] Void Residual by ultrasound Assessment & Plan Assessment & Plan (1) BPH w urinary obs/LUTS: Code(s): N40.1 - Benign prostatic hyperplasia with lower urinary tract symptoms; N13.8 - Other obstructive and reflux uropathy Category: Medical (2) Weak urinary stream: Code(s): R39.12 - Poor urinary stream Category: Medical (3) Erectile dysfunction: Code(s): N52.9 - Male erectile dysfunction, unspecified Category: Medical Plan Twelve month follow-up Orders: Orders AMB Urinalysis Automated Today Z13.9 - Encounter for screening, unspecified Prostate Specific Antigen 364 Days N40.1 - Benign prostatic hyperplasia with lower urinary tract symptoms, R33.9 - Retention of urine, unspecified Medications: Discontinued terazosin Discontinued Reason: Patient Completed Course 5 mg PO BEDTIME 90 days 90 caps 2RF N40.1 - Benign prostatic hyperplasia with lower urinary tract symptoms, R35.0 - Frequency of micturition, R39.12 - Poor urinary stream Patient Instructions: Imaging studies, laboratory and physical exam results were discussed and reviewed in detail. No major barriers to patient understanding were identified. An opportunity to ask questions regarding the treatment plan was provided. All questions were answered. The patient expressed understanding and agreement with the above treatment plan. The patient is aware they should contact our office by phone for worsening of their current condition or the appearance of new urologic symptoms. Compliance is encouraged with any medications and followup testing that is ordered. It is a privilege to participate in the urologic care of your patient. If you have any questions or concerns regarding treatment for the above conditions, or other urologic issues, please do not hesitate to contact me. The office telephone contact is [phone]. This note is constructed using voice recognition software. While every effort has been made to ensure accuracy aed trainer errors may have been included. Yours sincerely, Dr Ramiro Victoria MD, [facility] - Urology Providers of Expert, Compassionate Care for the Genitourinary System Coding Level of Care Code Est Pt Level 4 (38033) Diagnoses BPH w urinary obs/LUTS N40.1; N13.8 Weak urinary stream R39.12 Erectile dysfunction N52.9 CPT Codes Post Residual Void - PVR CPT Code: 83142-Qwde Void Residual by ultrasound ([id number])
--- OUTSIDE RECORDS SUMMARY | 2024-10-26 11:43 | XMS_ITS | Patient Health Record ---
Author Organization [facility] Address [address] [facility] [address] [place] [address] Support Name Relationship Address Phone Dane Calles Guarantor Unknown [phone] Allergies Allergen (clinical drug ingredient) Drug/Non Drug Allergy documented on EMR Reaction Allergy Type Onset Date Status penicillin G Penicillin G Potassium anaphylaxis Drug Allergy Active Reason For Referral No Information Medications Medication SIG (Take, Route, Frequency, Duration) Notes Start Date End Date Status Adderall XR 20 MG 1 capsule Orally twi ce a day for 56 days 10/28/2021 Active Cialis 5 MG 1 tablet Orally Once a day Active OXcarbazepine 150 MG 1 tablet Orally Twi ce a day Active Lisinopril 40 MG 1 tablet Orally Once a day for 90 days Active ProAir HFA 108 (90 Base) MCG/ACT 1 puff as needed Inhalation every 4 hrs for 30 days Active Lasix 20 MG 1 tablet Orally Once a day for 90 days 03/12/2021 Active Escitalopram Oxalate 20 MG TAKE 1 TABLET BY MOUTH EVERY DAY for 90 Active Felodipine ER 10 MG TAKE 1 TABLET BY PHILOMENA TH EVERY DAY for 90 Active Omeprazole 40 MG 1 capsule 30 minutes before morning meal Orally Once a day Active Immunizations Vaccine Route Administration Date Status Comme nts COVID Unknown 10/01/2021 Administered Influenza, high dose seasonal Unknown 10/01/2021 Admini stered Social History Tobacco Use: Social History Observation Description Date Details (start date - stop date) Former Smoker NA - NA Tobacco Use/Smoking Question Answer Notes Are you a former smoker How long has it been since y ou last smoked? > 10 years Additional Findings: Tobacco User Light cigarett e smoker ((1-9 cigs/day) Alcohol Screen (Audit-C) Question Answer Notes Did you have a drink contain ing alcohol in the past year? Yes How often did you have a dri nk containing alcohol in the past year? 4 or more times a week (4 points) How many drinks did you have on a typical day when you were drinking in the past year? 1 or 2 drinks (0 point) How often did you have 6 or more drinks on one occasion in the past year? Never (0 point) Points 4 Interpretation Positive Problems Problem Type SNOMED Code ICD Code Onset Dates Problem Status W/U Status Risk Notes Problem Disorder due to type 2 diabetes mellitus (258636100) Type 2 diabetes mellitus with unspecified complications (E11.8) Active confirmed Problem Morbid obesity (disorder) (862002812) Morbid (severe) obesity due to excess calories (E66.01) Active confirmed Problem Mixed hyperlipidemia (790830238) Mixed hyperlipidemia (E78.2) Active confirmed Problem Alcohol dependence (12001815) Alcohol dependence, uncomplicated (F10.20) Active confirmed Problem Mild recurrent major depression (21730012) Major depressive disorder, recurrent, mild (F33.0) Active confirmed Problem 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, intractable, 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) Active confirmed Problem Localization-rel a jweels (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, intractable, without status epilepticus (G40.219) Active confirmed Problem Obstructive sleep apnea syndrome (disorder) (82895200) Obstructive sleep apnea (adult) (pediatric) (G47.33) Active confirmed Problem Essential hypertension (34289341) Essential (primary) hypertension (I10) Active confirmed Problem Gastro-esophageal reflux disease without esophagitis (157508557) Gastro-esophageal reflux disease without esophagitis (K21.9) Active confirmed Problem Neurofibromatosis (67609728) Neurofibromatosis , 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) Active confirmed Problem Somnolence (87164621) Somnolence (R40.0) Active confirmed Problem Attention and concentration deficit (R41.840) Active confirmed Problem Body mass index 40+ - severely obese (700954949) Body mass index (BMI) 40.0-44.9, adult (Z68.41) Active confirmed Problem Lower urinary tract symptoms due to benign prostatic hypertrophy (20089279519047) Benign prostatic hyperplasia with lower urinary tract symptoms (N40.1) Active confirmed Problem Morbid obesity (476191619) Morbid obesity (E66.01) Active confirmed Plan Of Treatment No Information Medical (General) History Medical History History ICD Code hypertension, benign acid reflux BPH see Urology Attention deficit disorder Neurofibromatosis complex partial seizure disorder Surgical History Surgery Date(Month/Year) Umblical hernia repair 2004 Tonsellectomy Cyst in throat removed
== END 2024-10-26 12:16 | disposition home or self-care (01) ==
PROVIDERS: PCP Internal Medicine; Visit Provider Urology
DX: N40.1 Benign prostatic hyperplasia with lower urinary tract symptoms (principal); N13.8 Other obstructive and reflux uropathy; R39.12 Poor urinary stream; N52.9 Male erectile dysfunction, unspecified; Z13.9 Encounter for screening, unspecified
CPT/HCPCS: 99214

== ENCOUNTER → 2024-10-26 11:40 | Outpatient (BNVA) | payer OTHER, SELFPAY | PROVIDERS: PCP Internal Medicine; Visit Provider Urology | DX: N40.1 Benign prostatic hyperplasia with lower urinary tract symptoms (principal); N13.8 Other obstructive and reflux uropathy; R39.12 Poor urinary stream; N52.9 Male erectile dysfunction, unspecified | CPT/HCPCS: 51798; 81003; 99212 ==

== ENCOUNTER 2024-11-20 14:45 | Outpatient (AMB) | payer OTHER, SELFPAY ==
[2024-11-20 09:35] VITALS: BMI 24.8
--- NOTE | 2024-11-20 09:35 | MHC.OFFVISWM ---
VS Expanded 11/20/24 09:35 Height 5 ft 3 in Weight 140 lb 2 oz BMI 24.8 Body Fat % 21.8 Fat Free Mass 109.6 Visceral Fat Rating 7 Body Water % 56.5 Muscle Mass/Score 104.2 Intake Visit Reasons: (TV) PO LSG 03/16/24 Allergies Penicillins Allergy (Verified 10/26/24 11:45) Unknown HPI Comments Details: This?a?69?yo male who is s/p LSG without hiatal hernia repair on?03/16/2024. Presents for 8 month post op visit. Weight today is 140.2 pounds, with a BMI of 24.8. There has been a 82.2 pound weight loss,(initial weight 222.4 pounds) since starting the program on 12/21/2023 reflecting a 36.9 % total body weight loss and a weight loss of 50.3 pounds since surgery (operative weight 190.5 pounds) reflecting a 26.4 % TBWL since surgery. No complaints of nausea, emesis, abdominal pain or reflux. Reports infrequent but normal bowel movements every 2 days and uses stool softeners regularly. He states that things are going well. He has not been able to afford the shakes and is eating 3 meals per day. He is taking Certavit Sr antioxident MVI once daily. He has gone from a 38 to a 32 inch pant size. Present meal plan includes: 3 meals 4 forks protein and 4 forks veggies Drinking 48 oz fluids ? Exercise routine includes: 20-25 min aerobics class 5 days per week stationary bike 20 min 100 ector daily Joined [facility] Medical History Diabetes Atrial fibrillation Osteoarthritis DJD (degenerative joint disease) Von Recklinghausen disease GERD (gastroesophageal reflux disease) Anxiety Hyperlipidemia Insomnia Sleep apnea with use of continuous positive airway pressure (CPAP) Obesity Depression ADD (attention deficit disorder) Colon polyp Microscopic hematuria HTN (hypertension) AA (alcohol abuse) BPH (benign prostatic hyperplasia) Surgical History History of esophagogastroduodenoscopy (EGD) S/P laparoscopic sleeve gastrectomy Hx of tonsillectomy H/O bilateral inguinal hernia repair H/O umbilical hernia repair H/O colonoscopy Family History Mother Throat cancer Paternal Aunt Colon cancer Maternal Grandfather No problems noted. Social History Household Members: Family Housing: House Are you a primary caregiver services home to a significant other at home: No Do you presently have visiting nurse or other home services: No Alcohol intake: former Patient Tobacco Use Status: Former Tobacco user service: No Physical Exam Vital Signs: BMI result Body Mass Index 24.8 Telehealth Telehealth Telehealth Platform: Telephone Location of provider rendering services: practice address Location of patient: address on file Patient Identification confirmed using: Name, : Yes Telehealth method: voice only Patient verbally consented to treatment: Yes Patient verbally consented to billing insurance company: Yes Patient informed of any privacy concerns related to visit: Yes Minutes spent on Phone/Video with Pt.: 12 Assessment & Plan Assessment & Plan (1) S/P laparoscopic sleeve gastrectomy: Code(s): Z98.84 - Bariatric surgery status Category: Surgical Plan: Patient has achieved a healthy weight. Would recommend 5 forks of protein and for forks of veggies per meal. Continue his exercise routine. Continue his multivitamin. We will have him return to the office for his 1 year follow-up. He was encouraged to text weekly with any questions or concerns.
--- OUTSIDE RECORDS SUMMARY | 2024-11-20 17:03 | XMS_ITS | Patient Health Record ---
Author Organization [facility] Address [address] [facility] [address] [place] [address] Support Name Relationship Address Phone Dane Calles Guarantor Unknown [phone] Allergies Allergen (clinical drug ingredient) Drug/Non Drug [...] Disorder due to type 2 diabetes mellitus (536366612) Type 2 diabetes mellitus with unspecified complications (E11.8) Active confirmed Problem Morbid obesity (disorder) (397731926) Morbid (severe) obesity due to excess calories (E66.01) Active confirmed Problem Mixed hyperlipidemia (150227044) Mixed hyperlipidemia (E78.2) Active confirmed Problem Alcohol dependence (32465226) Alcohol dependence, uncomplicated (F10.20) Active confirmed Problem Mild recurrent major depression (40845954) Major depressive disorder, recurrent, mild (F33.0) Active confirmed Problem 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, intractable, 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) Active confirmed Problem 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, intractable, without status epilepticus (G40.219) Active confirmed Problem Obstructive sleep apnea syndrome (disorder) (84172305) Obstructive sleep apnea (adult) (pediatric) (G47.33) Active confirmed Problem Essential hypertension (18427905) Essential (primary) hypertension (I10) Active confirmed Problem Gastro-esophageal reflux disease without esophagitis (286412094) Gastro-esophageal reflux disease without esophagitis (K21.9) Active confirmed Problem Neurofibromatosis (93688250) Neurofibromatosis , 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) Active confirmed Problem Somnolence (15144295) Somnolence (R40.0) Active confirmed Problem Attention and concentration deficit (R41.840) Active confirmed Problem Body mass index 40+ - severely obese (389241545) Body mass index (BMI) 40.0-44.9, adult (Z68.41) Active confirmed Problem Lower urinary tract symptoms due to benign prostatic hypertrophy (24386173791645) Benign prostatic hyperplasia with lower urinary tract symptoms (N40.1) Active confirmed Problem Morbid obesity (614416150) Morbid obesity (E66.01) Active confirmed Plan Of Treatment No Information Medical (General) History Medical History History ICD Code hypertension, benign acid reflux BPH see Urology Attention deficit disorder Neurofibromatosis complex partial seizure disorder Surgical History Surgery Date(Month/Year) Umblical hernia repair 2004 Tonsellectomy Cyst in throat removed
== END 2024-11-20 15:09 | disposition home or self-care (01) ==
LOC: HO.HBS 15:01
PROVIDERS: PCP Internal Medicine; Visit Provider Physician Assistant Surgical
DX: Z71.3 Dietary counseling and surveillance (principal); Z90.3 Acquired absence of stomach [part of]; Z98.84 Bariatric surgery status
CPT/HCPCS: 98967

== ENCOUNTER → 2024-11-20 14:45 | Outpatient (BNVA) | payer OTHER, SELFPAY | PROVIDERS: PCP Internal Medicine; Visit Provider Physician Assistant Surgical ==

== ENCOUNTER 2024-11-22 15:17 | Outpatient (AMB) | payer OTHER, SELFPAY ==
--- OUTSIDE RECORDS SUMMARY | 2024-11-22 15:19 | XMS_ITS | Patient Health Record ---
Author Organization [facility] Address [address] [facility] [address] [place] [address] Support Name Relationship Address Phone Dane Calles Guarantor Unknown [phone] Allergies Allergen (clinical drug ingredient) Drug/Non Drug [...] Disorder due to type 2 diabetes mellitus (778303181) Type 2 diabetes mellitus with unspecified complications (E11.8) Active confirmed Problem Morbid obesity (disorder) (247503100) Morbid (severe) obesity due to excess calories (E66.01) Active confirmed Problem Mixed hyperlipidemia (404140344) Mixed hyperlipidemia (E78.2) Active confirmed Problem Alcohol dependence (60652670) Alcohol dependence, uncomplicated (F10.20) Active confirmed Problem Mild recurrent major depression (51155597) Major depressive disorder, recurrent, mild (F33.0) Active confirmed Problem 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, intractable, 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) Active confirmed Problem 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, intractable, without status epilepticus (G40.219) Active confirmed Problem Obstructive sleep apnea syndrome (disorder) (29705433) Obstructive sleep apnea (adult) (pediatric) (G47.33) Active confirmed Problem Essential hypertension (26958791) Essential (primary) hypertension (I10) Active confirmed Problem Gastro-esophageal reflux disease without esophagitis (486634296) Gastro-esophageal reflux disease without esophagitis (K21.9) Active confirmed Problem Neurofibromatosis (94370897) Neurofibromatosis , 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) Active confirmed Problem Somnolence (09285704) Somnolence (R40.0) Active confirmed Problem Attention and concentration deficit (R41.840) Active confirmed Problem Body mass index 40+ - severely obese (911351123) Body mass index (BMI) 40.0-44.9, adult (Z68.41) Active confirmed Problem Lower urinary tract symptoms due to benign prostatic hypertrophy (93285022676981) Benign prostatic hyperplasia with lower urinary tract symptoms (N40.1) Active confirmed Problem Morbid obesity (356720331) Morbid obesity (E66.01) Active confirmed Plan Of Treatment No Information Medical (General) History Medical History History ICD Code hypertension, benign acid reflux BPH see Urology Attention deficit disorder Neurofibromatosis complex partial seizure disorder Surgical History Surgery Date(Month/Year) Umblical hernia repair 2004 Tonsellectomy Cyst in throat removed
--- NOTE | 2024-11-22 15:31 | MHC.OFFVIS ---
Vital Signs 11/22/24 15:35 Height 5 ft 3 in Weight 141 lb BMI 25.0 BP 151/60 H Blood Pressure Location Lt brachial Position Sitting Pulse 81 Intake Visit Reasons: f/u colonoscopy Intake Note: Patient in office today in follow up s/p colonoscopy. CC: Patient reports occasional constipation and bleeding d/t internal hemorrhoids but it states that he's always been like that. Denies other GI concerns today. Allergies Penicillins Allergy (Verified 11/22/24 15:34) Unknown HPI HPI f/u colonoscopy: Details: Assessment & Plan (1) Pre-op examination: Code(s): Z01.818 - Encounter for other preprocedural examination Plan: He has had several scopes before at [facility] and has a hx of TA. He suffers CIC but only moves his bowel q 3-4 days but he has no discomfort and only uses colace. He only has dysphagia if he forgets his omeprazole but otherwise is fine. Past EGD unremarkable. His asthma is well controlled, he has JOSEPH but no cardiac problems. There are no prior problems with anesthesia or sedation. No ID problems. His paternal aunt had CRC and he has polyps. (2) Tubular adenoma of colon: Comment: Prior colonoscopies at [facility] Code(s): D12.6 - Benign neoplasm of colon, unspecified (3) AA (alcohol abuse): Code(s): F10.10 - Alcohol abuse, uncomplicated (4) Neurofibromatosis: Code(s): Q85.00 - Neurofibromatosis, unspecified COLONOSCOPY 09/19/24? Findings: Terminal Ileum-not intubated Cecum:normal Ascending Colon: normal Transverse Colon -normal Descending Colon:normal Sigmoid Colon: severe diverticulosis Rectum: Retroflexion with small to medium internal hemorrhoids seen, grade I Anorectum - normal Intervention: none Impression and Post Procedure Diagnosis: diverticulosis internal hemorrhoids Plan: High fiber diet leaflet Avoid straining at stool, epsom salts and sitz bath, anusol supps or cream Repeat Colonoscopy in 1 year or earlier if clinically indicated, next time avoid nuts and corn for 1 week and maybe 2 d of clears TODAY'S VISIT He is already scheduled for his one year recall. He says he knows what he did wrong wtih the prep and will amend this. He was already sent the prep and he already has his repeat colonoscopy date. The procedure was well tolerated. The results were explained and the patient is agreeable to the follow-up interval as stated. The bowel pattern has returned to normal. Education was provided to tell any 1st degree relatives about their findings to be sure that they are screened by age 45. Educated that they will be put on a recall list when it is time for their repeat scope but should they move out of state or away from the hospital they will need to remember along with their primary to repeat the procedure in a timely fashion to avoid any adverse complications. [facility] Medical History Diabetes Atrial fibrillation Osteoarthritis DJD (degenerative joint disease) Von Recklinghausen disease GERD (gastroesophageal reflux disease) Anxiety Hyperlipidemia Insomnia Sleep apnea with use of continuous positive airway pressure (CPAP) Obesity Depression ADD (attention deficit disorder) Colon polyp Microscopic hematuria HTN (hypertension) AA (alcohol abuse) BPH (benign prostatic hyperplasia) Surgical History History of esophagogastroduodenoscopy (EGD) S/P laparoscopic sleeve gastrectomy Hx of tonsillectomy H/O bilateral inguinal hernia repair H/O umbilical hernia repair H/O colonoscopy Family History Mother Throat cancer Paternal Aunt Colon cancer Maternal Grandfather No problems noted. Social History Household Members: Family Housing: House Are you a primary health and social care teacher to a significant other at home: No Do you presently have visiting nurse or other home services: No Alcohol intake: former Patient Tobacco Use Status: Former Tobacco user service: No Review of Systems Const Denies fatigue, Denies fever(s), Denies night sweats, Denies poor appetite and Denies weight loss Eyes Details: glasses Reports requires corrective lenses ENT Reports Normal hearing present, Denies dysphagia, Denies odynophagia, Denies throat swelling and Denies tongue swelling GI Details: Denies abdominal pain, Denies melena, Denies bloating, Denies hematochezia, Denies constipation, Denies GI cramping, Denies dysphagia, Denies excessive flatus, Denies early satiety, Denies heartburn, Denies diarrhea, Denies nausea, Denies odynophagia, Denies vomiting and Denies hematemesis Skin/Breast Denies pruritus, Denies lesions, Denies rash and Denies jaundice Neuro Reports Normal hearing present and Denies Abnormal speech present Endo Denies fatigue Aller/Immun Denies throat swelling and Denies tongue swelling Physical Exam Vital Signs: Last Vital Signs Pulse 81 11/22/24 15:35 BP 151/60 H 11/22/24 15:35 BMI result Body Mass Index 25.0 Const General: cooperative, no acute distress, well developed and well groomed Nutritional Appearance: average body habitus and well nourished Orientation/consciousness: oriented to person, oriented to place and oriented to time Limitations: No language barrier and ambulation with cane HEENT Head: Yes normocephalic and Yes atraumatic Eyes General: appearance normal, both eyes and all related structures Pupils: Equal, round and reactive pupils present Neck Neck: Yes normal visual inspection and Yes no lymphadenopathy Thyroid: Thyroid normal Resp Effort & Inspection: normal respiratory effort and able to speak in complete sentences Auscultation: clear to auscultation bilaterally Cardio Rate: regular rate Rhythm: regular rhythm Heart sounds: Normal, physiologic split S2 sound present Peripheral pulses: radial pulses present and posterior tibial pulses present GI Inspection: No distended and No Abdominal panniculus present Palpation (GI): Soft to palpation, nontender, no guarding, not rigid and No hepatosplenomegaly present Percussion: Yes normal to percussion Auscultation: normal bowel sounds Rectal Exam - Male: Yes deferred Skin General skin exam: no rashes or lesions noted, turgor normal, skin not dry, no jaundice, No spider nevi and no striae Rashes: no rashes Nails: normal Neuro General: oriented to person, oriented to place and oriented to time Cranial nerves: Yes Equal, round and reactive pupils present and Yes Normal hearing present Speech: No Abnormal speech present Extrem General: Yes normal to inspection, No clubbing, No cyanosis and No edema Psych Appearance: grossly normal and well kempt Mental Status: mental status grossly normal Speech and movement: Normal speech and movement present Affect: normal affect Attitude: cooperative Thought process: Normal thought process present and not confabulating Thought content: Normal thought content present Insight: Fair insight present (Psych) and Limited insight present (Psych) Judgement: Fair judgement present (Psych) and Limited judgement present (Psych) Assessment & Plan Assessment & Plan (1) Tubular adenoma of colon: Comment: 10/2024 scope= insufficient prep repeat in 1 year Prior colonoscopies at [facility] Code(s): D12.6 - Benign neoplasm of colon, unspecified Category: Medical Plan He is already scheduled for his one year recall. He says he knows what he did wrong wtih the prep and will amend this. He was already sent the prep and he already has his repeat colonoscopy date. The procedure was well tolerated. The results were explained and the patient is agreeable to the follow-up interval as stated. The bowel pattern has returned to normal. Education was provided to tell any 1st degree relatives about their findings to be sure that they are screened by age 45. Educated that they will be put on a recall list when it is time for their repeat scope but should they move out of state or away from the hospital they will need to remember along with their primary to repeat the procedure in a timely fashion to avoid any adverse complications. Coding Level of Care Code Est Pt Level 3 (37874) Diagnoses Tubular adenoma of colon D12.6
[2024-11-22 15:35] VITALS: BP 151/60; PULSE 81; BMI 25.0
== END 2024-11-22 15:50 | disposition home or self-care (01) ==
PROVIDERS: PCP Internal Medicine; Visit Provider Nurse Practitioner
DX: D12.6 Benign neoplasm of colon, unspecified (principal)
CPT/HCPCS: 99213

== ENCOUNTER → 2024-11-22 15:17 | Outpatient (BNVA) | payer OTHER, SELFPAY | PROVIDERS: PCP Internal Medicine; Visit Provider Nurse Practitioner | DX: D12.6 Benign neoplasm of colon, unspecified (principal) | CPT/HCPCS: 99212 ==

== ENCOUNTER 2024-11-28 06:13 | Outpatient (REF) | payer OTHER, SELFPAY ==
--- NOTE | 2024-11-28 | EMG_ITS ---
FINDINGS: Bilateral tibial and peroneal motor studies were performed. Bilateral superficial, peroneal, and sural sensory studies were performed. Tibial H reflexes were obtained and paraspinal muscles were tested with a needle. IMPRESSION: 1. Moderate mostly sensory, axonal, peripheral neuropathy. 2. Bilateral lower lumbar radiculopathy. MD MITRA Serrato/MINDY / [id number]
--- OUTSIDE RECORDS SUMMARY | 2024-11-28 06:17 | XMS_ITS | Patient Health Record ---
Author Organization [employer] Address [address] [facility] [address] [place] [address] Support Name Relationship Address Phone Dane Calles Guarantor Unknown [phone] Allergies Allergen (clinical drug ingredient) Drug/Non Drug [...] Disorder due to type 2 diabetes mellitus (251423921) Type 2 diabetes mellitus with unspecified complications (E11.8) Active confirmed Problem Morbid obesity (disorder) (507818571) Morbid (severe) obesity due to excess calories (E66.01) Active confirmed Problem Mixed hyperlipidemia (950261420) Mixed hyperlipidemia (E78.2) Active confirmed Problem Alcohol dependence (57573646) Alcohol dependence, uncomplicated (F10.20) Active confirmed Problem Mild recurrent major depression (96813166) Major depressive disorder, recurrent, mild (F33.0) Active confirmed Problem 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, intractable, 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) Active confirmed Problem 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, intractable, without status epilepticus (G40.219) Active confirmed Problem Obstructive sleep apnea syndrome (disorder) (51828588) Obstructive sleep apnea (adult) (pediatric) (G47.33) Active confirmed Problem Essential hypertension (97927189) Essential (primary) hypertension (I10) Active confirmed Problem Gastro-esophageal reflux disease without esophagitis (366487495) Gastro-esophageal reflux disease without esophagitis (K21.9) Active confirmed Problem Neurofibromatosis (40155272) Neurofibromatosis , 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) Active confirmed Problem Somnolence (23733260) Somnolence (R40.0) Active confirmed Problem Attention and concentration deficit (R41.840) Active confirmed Problem Body mass index 40+ - severely obese (288928392) Body mass index (BMI) 40.0-44.9, adult (Z68.41) Active confirmed Problem Lower urinary tract symptoms due to benign prostatic hypertrophy (74372498590290) Benign prostatic hyperplasia with lower urinary tract symptoms (N40.1) Active confirmed Problem Morbid obesity (061263630) Morbid obesity (E66.01) Active confirmed Plan Of Treatment No Information Medical (General) History Medical History History ICD Code hypertension, benign acid reflux BPH see Urology Attention deficit disorder Neurofibromatosis complex partial seizure disorder Surgical History Surgery Date(Month/Year) Umblical hernia repair 2004 Tonsellectomy Cyst in throat removed
== END 2024-11-28 06:14 | disposition home or self-care (01) ==
LOC: HO.NEURO 06:13
PROVIDERS: PCP Internal Medicine; Visit Provider Internal Medicine
DX: Q85.01 Neurofibromatosis, type 1 (principal); G62.9 Polyneuropathy, unspecified
CPT/HCPCS: 95886; 95911

== ENCOUNTER 2025-01-03 13:05 | Outpatient (AMB) | payer OTHER, SELFPAY ==
--- NOTE | 2025-01-03 13:05 | A.OFFVIS_ITS ---
Vital Signs 01/03/25 13:06 Height 5 ft 3 in Weight 149 lb 14.629 oz BMI 26.6 BP 150/72 H Blood Pressure Location Lt brachial Position Sitting Pulse 66 Intake Visit Reasons: [facility]ER/Dr. Wylie/Irregular pulse rhythm Intake Note: New patient afib on watch daily with ekg today c/o palpitation s Embroidery Assistant Required: No Allergies Penicillins Allergy (Verified 11/22/24 15:34) Unknown Medication List - Last Reconciled 01/03/25 by Roman Olivia MD albuterol sulfate 90 mcg/actuation 2 puffs inhalation Q6H PRN atorvastatin 20 mg PO BEDTIME bupropion HCl XL 300 mg PO DAILY calcium carbonate-vitamin D3 600 mg-10 mcg (400 unit) (Calcium with Vitamin D) 1 tab PO BID clonidine HCl 0.1 mg PO BEDTIME cyanocobalamin (vitamin B-12) 1,000 mcg PO DAILY docusate sodium 100 mg PO BID PRN felodipine ER 10 mg PO DAILY finasteride 5 mg PO BEDTIME 90 days fluticasone propionate 50 mcg/actuation 1 spray intranasal DAILY gabapentin 300 mg PO TID lancets (OneTouch Delica Plus Lancet) As directed lisinopril 5 mg PO DAILY meclizine 25 mg PO TID PRN melatonin 5 mg PO BEDTIME methylphenidate HCl ER 36 mg PO QAM multivitamin 1 tab PO DAILY tadalafil 20 mg PO ONCE PRN 30 days tadalafil 10 mg PO DAILY 90 days terazosin 5 mg PO BEDTIME thiamine HCl (vitamin B1) 100 mg PO DAILY trazodone 200 mg PO BEDTIME HPI Comments Details: Thank you for referring Narendra in cardiology consultation today for symptoms of irregular heartbeat and palpitation with cardiac arrhythmias. He had a Holter monitor last year in January which had shown frequent PACs with burden of 3.8% without any episodes of atrial fibrillation. He was prior history of hypertension, morbid obesity status post bariatric surgery with significant loss of weight, diabetes which is now diet controlled since weight loss, ADHD, neurofibromatosis, hyperlipidemia, anxiety. Patient had prior significant alcohol abuse but currently he was not use alcohol for many years. Patient is referred here because he thinks that he might have atrial fibrillation. He was occasional symptoms of rapid heart rate in his what is suggest that he might have atrial fibrillation. I could not review his EKGs from his phone as it was not accessible to him. He said otherwise he is feeling well. Has no exertional symptoms. Denies any exertional chest pain or shortness of breath. Denies any orthopnea, PND, leg edema. No lightheadedness, syncope. [facility] Medical History Diabetes Atrial fibrillation Osteoarthritis DJD (degenerative joint disease) Von Recklinghausen disease GERD (gastroesophageal reflux disease) Anxiety Hyperlipidemia Insomnia Sleep apnea with use of continuous positive airway pressure (CPAP) Obesity Depression ADD (attention deficit disorder) Colon polyp Microscopic hematuria HTN (hypertension) AA (alcohol abuse) BPH (benign prostatic hyperplasia) Surgical History History of esophagogastroduodenoscopy (EGD) S/P laparoscopic sleeve gastrectomy Hx of tonsillectomy H/O bilateral inguinal hernia repair H/O umbilical hernia repair H/O colonoscopy Family History Mother Throat cancer Paternal Aunt Colon cancer Maternal Grandfather No problems noted. Social History Household Members: Family Housing: House Are you a primary geriatric personal care aide to a significant other at home: No Do you presently have visiting nurse or other home services: No Alcohol intake: former Patient Tobacco Use Status: Former Tobacco user service: No Review of Systems Const Denies chills, Denies daytime sleepiness, Denies fatigue, Denies fever(s), Denies frequent falls, Denies poor appetite, Denies snoring, Denies stops breathing during sleep, Denies weakness, Denies weight gain and Denies weight loss Eyes Denies loss of vision ENT Denies dizziness and Denies hearing loss Card Denies chest pain, Denies claudication, Denies leg edema, Denies lightheadedness, Reports palpitations, Denies dyspnea, Denies dyspnea on exertion and Denies orthopnea Resp Denies cough, Denies excessive phlegm production, Denies dyspnea, Denies dyspnea on exertion, Denies snoring and Denies wheezing GI Denies abdominal pain, Denies hematochezia, Denies change in bowel habits, Denies nausea and Denies vomiting Denies dysuria and Denies urinary frequency Musc Denies arthralgias, Denies muscle weakness, Denies numbness and Denies other (frequent falls) Skin/Breast Denies nail changes and Denies rash Neuro Denies Abnormal speech present, Denies dizziness, Denies frequent falls, Denies loss of vision, Denies memory loss, Denies numbness and Denies weakness Psych Denies depression and Denies memory loss Endo Denies fatigue and Reports palpitations Baron/Lymph Reports easy bruising and Reports other (anemia) Aller/Immun Denies wheezing Physical Exam Vital Signs: Last Vital Signs Pulse 66 01/03/25 13:06 BP 150/72 H 01/03/25 13:06 BMI result Body Mass Index 26.6 Const General: cooperative, comfortable, no acute distress, alert, awake and Physically active Nutritional Appearance: average body habitus Orientation/consciousness: patient oriented x3 Limitations: no limitations HEENT Head: Yes normocephalic and Yes atraumatic Neck Neck: Yes trachea midline, Yes supple and Yes no JVD Resp Effort & Inspection: normal respiratory effort Auscultation: clear to auscultation bilaterally Cardio Jugular venous distension: no JVD Palpation: normal PMI Rate: regular rate Rhythm: abnormal rhythm with ectopic beats Heart sounds: S1 normal heart sound present, S2 normal heart sound present, no click, no gallops, no murmurs and no rubs GI Auscultation: normal bowel sounds Skin General skin exam: no rashes or lesions noted and other (Diffuse lesions of neurofibromatosis) Neuro General: patient oriented x3 and no focal motor deficits Speech: No Abnormal speech present Extrem General: Yes no clubbing, cyanosis or edema Psych Appearance: grossly normal Office Procedures EKG Details: EKG shows normal sinus rhythm with frequent PACs in bigeminal pattern with nonspecific ST changes [id number], Complete Assessment & Plan Assessment & Plan (1) Cardiac arrhythmia: Code(s): I49.9 - Cardiac arrhythmia, unspecified Category: Medical Plan: Patient with frequent PACs which can be precursor for atrial fibrillation. Although I do not have any clear evidence of atrial fibrillation by extended Holter monitor done last year. Suggest a 30 day event monitor to assess for any presence of atrial fibrillation which may tire changer including initiation of blood thinners given his CHADSVASc score of 2. Also suggest him to have an echocardiogram to evaluate LV structure and function biatrial chamber size to further assess for risk of thromboembolic complication. Avoidance of stimulants was discussed. No indication for pharmacotherapy for isolated PACs and benign nature of isolated PACs were discussed with him. He understands agrees. (2) HTN (hypertension): Code(s): I10 - Essential (primary) hypertension Category: Medical Plan: Hypertension which is currently well optimized advised to monitor blood pressure at home maintain log. Goal blood pressure less than 130/84. Low-salt diet was discussed. He understands agrees. Continue current therapy. Target goal LDL less than 100 mg/dL. Will follow up in the clinic in 2 months time, sooner p.r.n.. Thank you for allowing me to partake in his Orders: Orders CA echo transthoracic complete Today I49.9 - Cardiac arrhythmia, unspecified ECG 30 day event monitor Today I49.9 - Cardiac arrhythmia, unspecified Coding Level of Care Code New Pt Level 4 (61799) Complex EM visit Add On G2211 Diagnoses Cardiac arrhythmia I49.9 HTN (hypertension) I10 CPT Codes EKG - CPT: 73397-[id number], Complete ([id number])
[2025-01-03 13:06] VITALS: BP 150/72; PULSE 66; BMI 26.6
--- OUTSIDE RECORDS SUMMARY | 2025-01-03 13:16 | XMS_ITS | Encounter Summary ---
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 Role Phone Brittany Saldana MD Primary Care Provider + Darrin Hernandez Unavailable Unavailable Reason for Visit * Reason Comments Follow-up Encounter Details Date Type Department Care Team (Late st Contact Info) Description 12/07/2024 10:30 AM EST Office Visit [facility] [address] [place] [address] Brittany Saldana MD [address] [place] [address] Essential (primary) hypertension (Primary Dx); Recurrent major depressive disorder, in partial remission (CMS/HCC); Neurofibromatosis, type 1 (von Recklinghausen's disease) (CMS/HCC); Type 2 diabetes mellitus without complication, without long-term current use of insulin (CMS/HCC); Lumbar radiculopathy, chronic; Polyneuropathy associated with underlying disease (CMS/HCC) Social History Tobacco Use Types Packs/Day Years Used Date Smoking Tobacco: Never Smokeless Tobacco: Never Tobacco Cessation:Counseling Given: Not Answered Alcohol Use Standard Drinks/Week Comments Not Currently 0 (1 standard drink = 0.6 oz pur e alcohol) Depression Answer Date Recorded Patient Health Questionnaire-9 Score 2 12/07/2024 Patient Health Questionnaire-9 Score 2 12/07/2024 Last PHQ-9: Questionnaire Data Not on file 0 12/07/2024 Housing Stability Answer Date Recorded What is your housing situation today? I have best howard 02/29/[address] you li ve. Do you have problems with any of the following? None of the above 02/29/2024 Food Insecurity Answer Date Recorded Within the past 12 months, y ou worried that your food would run out before you got money to buy more: Never True 02/29/2024 Within the past 12 months,th e food you bought just didn't last and you didn't have enough money to get more: Never True Transportation Answer Date Recorded In the past 12 months, has l ack of transportation kept you from medical appts, meetings, work or from getting things needed for daily living? No 02/29/2024 Utilities Answer Date Recorded In the past 12 months, has t he electric, gas, oil or water company threatened to shut off services in your home? No 02/29/2024 Depression Answer Date Recorded Patient Health Questionnaire-2 Score 2 12/07/2024 Sex and Gender Information Value Date Recorded Sex Assigned at Male 09/14/2022 10:36 AM EDT Legal Sex Male 10:36 AM EDT Gender Identity Male 09/14/2022 10:36 AM EDT Sexual Orientation Choose not to disclose 2021 10:36 AM EDT documented as of this encounter Last Filed Vital Signs Vital Sign Reading Time Taken Comments Blood Pressure 146/60 12/07/2024 10:38 AM EST Pulse 61 12/07/2024 10:38 AM EST Temperature 36.9 ??C (98.4 ??F) 12/07/2024 1 0:38 AM EST Respiratory Rate 20 12/07/2024 10:3 8 AM EST Oxygen Saturation - - Inhaled Oxygen Concentration - - Weight 63.4 kg (139 lb 12.8 oz) 025 10:38 AM EST Height 160 cm (5' 3 ) 12/07/2024 10:38 AM EST Body Mass Index 24.76 12/07/2024 10:38 AM EST documented in this encounter Progress Notes * Brittany Saldana MD - 12/07/2024 10:30 AM EST SUBJECTIVE: Dane Calles is a 69 y.o. year old male who presents for follow up. Denies recent illness, injury, or hospitalization. Nerve conduction study on 11/28/2024 showed peripheral neuropathy at peroneal level + lower lumbar radiculopathy. Colonoscopy on 09/19/2024 had poor prep and showed diffuse diverticulosis and hemorrhoids. Pt is here for FU on HTN, he is on Lisinopril 7.5 mg per day. He takes his BP every morning when he first gets up and reports his highest in the mornings to be around 170s/80s, also claiming his BP is typically around the higher side in the mornings. He says heuses little amounts of salt in his foods. He has a therapist and reports doing well. He takes his anxiety medications and reports no issues with them. He was having issues with his insurance covering the Methylphenidate, but he currently has a few more pills with him still. He switched pharmacies and was told the pharmacy cannot supply this medication, so he has been getting the medication from the clinic pharmacy. Acute Concerns: Pt complains of palpitations often, noticing an irregular heart beat, even when he is sitting down or not doing any strenuous activities. He monitors his heart beat through his watch. He denies SOB. He also complains of burning sensation and pain in both of his feet. He claims that the Gabapentin has helped with the pain. 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 Cervical lymphadenopathy Mild intermittent asthma Neurofibromatosis, type 1 (von Recklinghausen's disease) (CMS/HCC) Obstructive sleep apnea syndrome Polyp of colon Slow transit constipation Vascular insufficiency Depression Type 2 diabetes mellitus without complication, without long-term current use of insulin (CMS/HCC) Varicose veins of bilateral lower extremities with other complications Encounter for preventive health examination Essential (primary) hypertension Encounter for colorectal cancer screening Chronic fatigue Erectile dysfunction Iliopsoas bursitis of left hip Arthritis of both hands Obesity (BMI 30-39.9) Bradycardia Fall (on) (from) other stairs and steps, initial encounter Vertigo Neurofibroma of upper extremity Recurrent major depressive disorder, in partial remission (CMS/HCC) Lumbar radiculopathy, chronic Polyneuropathy associated with underlying disease (CMS/HCC) No family history on file. Review of Systems Constitutional: Negative for fever. HENT: Negative for congestion, ear pain, rhinorrhea and sore throat. Eyes: Negative for pain and discharge. Respiratory: Negative for cough and shortness of breath. Cardiovascular: Positive for palpitations. Negative for chest pain. Gastrointestinal: Negative for abdominal pain, constipation, diarrhea and nausea. Endocrine: Negative for polydipsia. Genitourinary: Negative for dysuria and frequency. Musculoskeletal: Negative for arthralgias, back pain and neck pain. Neurological: Positive for numbness. Negative for dizziness and headaches. Psychiatric/Behavioral: Negative for agitation. OBJECTIVE: Vitals: 12/07/24 1038 BP: (!) 146/60 Pulse: 61 Resp: 20 Temp: 98.4 ??F (36.9 ??C) Physical Exam Constitutional: Appearance: Normal appearance. HENT: Right Ear: Tympanic membrane and ear canal normal. Left Ear: Tympanic membrane and ear canal normal. Mouth/Throat: Mouth: Mucous membranes are moist. Pharynx: No oropharyngeal exudate or posterior oropharyngeal erythema. Eyes: Pupils: Pupils are equal, round, and reactive to light. Cardiovascular: Rate and Rhythm: Normal rate and regular rhythm. Heart sounds: No murmur heard. Pulmonary: Breath sounds: Normal breath sounds. No wheezing. Abdominal: General: Bowel sounds are normal. Palpations: Abdomen is soft. Tenderness: There is no abdominal tenderness. Musculoskeletal: Cervical back: Normal range of motion. No tenderness. Lumbar back: Tenderness present. Positive right straight leg raise test. Comments: Walks with a cane. Skin: General: Skin is warm. Neurological: General: No focal deficit present. Mental Status: He is alert and oriented to person, place, and time. Psychiatric: Mood and Affect: Mood normal. Office Visit on 12/07/2024 Component Date Value Ref Range Status Hemoglobin A1C 12/07/2024 5.1 4.0 - 6.0 % Final Glucose Blood, POC 12/07/2024 105 60 - 200 mg/dL Final Problem List Items Addressed This Visit Essential (primary) hypertension - Primary It is controlled today, it looks like it was not well controlled at home. Pt will bring BP records next week and drop at front office developer for me to review. Continue Lisinopril 7.5 mg and FU with me in 4 months. Recurrent major depressive disorder, in partial remission (CMS/HCC) Pt is doing well on Trazodone and he takes adderall for ADD. FU closely with psychotherapist, continue taking medications as above. Pt feels safe at home and is able to reach out for safety. Neurofibromatosis, type 1 (von Recklinghausen's disease) (CMS/HCC) Has diffused neurofibromas on skin and intra abdominally, not in the brain. Pt is mostly asymptomatic, does not have any seizures. Will FU once per year. Type 2 diabetes mellitus without complication, without long-term current use of insulin (CMS/HCC) Controlled. A1c is at goal. Not on medications after he lost weight s/p geriatric surgery. Counseled re more frequent low calorie/carb meals. Encouraged physical activity as tolerated. FU in 3 months. Relevant Orders POCT HGB A1C (Completed) POCT Glucose (Completed) Lumbar radiculopathy, chronic Pt occasionally has sciatica and NCS radiculopathy. Continue Gabapentin, I gave him information regarding stretching exercises for sciatica. Polyneuropathy associated with underlying disease (CMS/HCC) Most likely due to neurofibromas, pt is doing well on Gabapentin. Follow Up: Current Outpatient Medications on File Prior to Visit Medication Sig Dispense Refill albuterol (Ventolin HFA) 108 (90 Base) MCG/ACT inhaler INHALE 2 PUFFS EVERY 4 TO 6 HOURS NEEDED 18 g 1 ARIPiprazole (Abilify) 2 MG tablet Take 1 tablet (2 mg) by mouth Once per day. 90 tablet 3 atorvastatin (Lipitor) 20 MG tablet TAKE ONE TABLET BY MOUTH AT BEDTIME (FOR CHOLESTEROL) 30 [id number] buPROPion XL (Wellbutrin XL) 300 MG 24 hr tablet Take 1 tablet (300 mg) by mouth in the morning. 90tablet 3 cloNIDine (Catapres) 0.1 MG tablet TAKE 1 TABLET BY MOUTH AT BEDTIME 90 tablet 3 cyanocobalamin (Vitamin B-12) 1000 MCG tablet TAKE 1 TABLET BY MOUTH EVERY MORNING 30 tablet 11 docusate sodium (Colace) 100 MG capsule Take 1 capsule (100 mg) by mouth 2 times daily. TAKE 1 CAPSULE BY MOUTH TWICE DAILY NEEDED 180 capsule 2 finasteride (Proscar) 5 MG tablet TAKE 1 TABLET BY MOUTH ONCE DAILY fluticasone (Flonase) 50 MCG/ACT nasal spray USE 1-2 SPRAYS EACH NOSTRIL ONCE DAILY NEEDED 16 g 3 gabapentin (Neurontin) 300 MG capsule TAKE ONE CAPSULE BY MOUTH EVERY MORNING, AT NOON AND AT BEDTIME 90 capsule 11 glucose blood (OneTouch Ultra) test strip TEST BLOOD SUGAR TWICE DAILY 100 strip 11 Lancets 28G [facility] [place] Use 1 lancet to monitor blood glucose twice daily 100 each 11 lisinopril 5 MG tablet Take 1.5 tablets (7.5 mg) by mouth Once per day. 135 tablet 3 meclizine (Antivert) 25 MG tablet TAKE 1 TABLET BY MOUTH THREE TIMES DAILY IN THE MORNING, AT NOON,AND AT BEDTIME NEEDED FOR DIZZINESS 90 tablet 0 melatonin 5 MG tablet TAKE 1 TABLET BY MOUTH AT BEDTIME 90 tablet 1 Multiple Vitamins-Minerals (CertaVite/Antioxidants) tablet Take 1 tablet by mouth in the morning. 30 tablet 11 [] naloxone (Narcan) 4 mg/0.1 mL nasal spray Administer 1 spray (4 mg) into affected nostril(s) if needed for opioid reversal. May repeat every 2-3 minutes if needed, alternating nostrils, until medical assistance becomes available. 1 each 5 polyethylene glycol, PEG, 3350 (MiraLax) 17 GM/SCOOP powder Take 17 g by mouth if needed each day (constipation >1d). 527 g 11 thiamine (Vitamin B-1) 100 MG tablet 1 tab po/d 30 tablet 11 traZODone (Desyrel) 100 MG tablet TAKE TWO TABLETS BY MOUTH AT BEDTIME 60 tablet 11 [DISCONTINUED] Methylphenidate HCl (methylphenidate ER) 36 MG 24 hr tablet TAKE 1 TABLET BY MOUTH EVERY DAY IN THE MORNING, DO NOT BREAK, CRUSH, DISSOLVE OR CHEW 30 tablet 0 No current facility-administered medications on file prior to visit. IIsabel, am serving as a scribe to document services personally performed by Dr. Brittany Saldana, based on the patient's response to questions by provider and provider's statements to me. documented in this encounter Miscellaneous Notes * Patient Education Note - Brittany Saldana MD - 12/07/2024 4:03 PM EST Images from the original note were not included. Patient Education Table of Contents Sciatica Rehab To view videos and all your education online visit, [email or web address] or scan this QR code with your smartphone. Access to this content will in one year. Sciatica Rehab Ask your health care provider which exercises are safe for you. Do exercises exactly as told by your health care provider and adjust them as directed. It is normal to feel mild stretching, pulling, tightness, or discomfort as you do these exercises. Stop right away if you feel sudden pain or your pain gets worse. Do not begin these exercises until told by your health care provider. Stretching and [id number] exercises These exercises warm up your muscles and joints and improve the movement and flexibility of your hips and back. These exercises also help to relieve pain, numbness, and tingling. Sciatic nerve glide 1. Sit in a chair with your head facing down toward your chest. Place your hands behind your back. Let your shoulders slump forward. Slowly straighten one of your legs while you tilt your head back as if you are looking toward the ceiling. Only straighten your leg as far as you can without making your symptoms worse. Hold this position for seconds. Slowly return your leg and head back to the starting position. Repeat with your other leg. Repeat times. Complete this exercise times a day. Knee to chest with hip adduction and internal rotation 1. Lie on your back on a firm surface with both legs straight. Bend one of your knees and move it up toward your chest until you feel a gentle stretch in your lower back and buttock. Then, move your knee toward the shoulder that is on the opposite side from yourleg. This is hip adduction and internal rotation. Hold your leg in this position by holding on to the front of your knee. Hold this position for seconds. Slowly return to the starting position. Repeat with your other leg. Repeat times. Complete this exercise times a day. Prone extension on elbows 1. Lie on your abdomen on a firm surface. A bed may be too soft for this exercise. Prop yourself up on your elbows. Use your arms to help lift your chest up until you feel a gentle stretch in your abdomen and your lower back. This will place some of your body weight on your elbows. If this is uncomfortable, try stacking pillows under your chest. Your hips should stay down, against the surface that you are lying on. Keep your hip and back muscles relaxed. Hold this position for seconds. Slowly relax your upper body and return to the starting position. Repeat times. Complete this exercise times a day. Strengthening exercises These exercises build strength and endurance in your back. Endurance is the ability to use your muscles for a long time, even after they get tired. Pelvic tilt This exercise strengthens the muscles that lie deep in the abdomen. 1. Lie on your back on a firm surface. Bend your knees and keep your feet flat on the surface. Tense your abdominal muscles. Tip your pelvis up toward the ceiling and flatten your lower back into the firm surface. To help with this exercise, you may place a small towel under your lower back and try to push your back into the towel. Hold this position for seconds. Let your muscles relax completely before you repeat this exercise. Repeat times. Complete this exercise times a day. Alternating arm and leg raises 1. Get on your hands and knees on a firm surface. If you are on a hard floor, you may want to use padding, such as an exercise mat, to cushion your knees. Line up your arms and legs. Your hands should be directly below your shoulders, and your knees should be directly below your hips. Lift your left leg behind you. At the same time, raise your right arm and straighten it in front ofyou. Do not lift your leg higher than your hip. Do not lift your arm higher than your shoulder. Keep your abdominal and back muscles tight. Keep your hips facing the ground. Do not arch your back. Keep your balance carefully, and do not hold your breath. Hold this position for seconds. Slowly return to the starting position. Repeat with your right leg and your left arm. Repeat times. Complete this exercise times a day. Posture and body mechanics Good posture and healthy body mechanics can help to relieve stress in your body's tissues and joints. Body mechanics refers to the movements and positions of your body while you do your daily activities. Posture is part of body mechanics. Good posture means: Your spine is in its natural S-curve position (neutral). Your shoulders are pulled back slightly. Your head is not tipped forward. Follow these guidelines to improve your posture and body mechanics in your everyday activities. Standing When standing, keep your spine neutral and your feet about hip width apart. Keep a slight bend in your knees. Your ears, shoulders, and hips should line up. When you do a task in which you aboriginal education worker coordinator one place for a long time, place one foot up on a stable object that is 2?4 inches (5?10 cm) high, such as a footstool. This helps keep your spine neutral. Sitting When sitting, keep your spine neutral and keep your feet flat on the floor. Use a footrest, if necessary, and keep your thighs parallel to the floor. Avoid rounding your shoulders, and avoid tilting your head forward. When working at a desk or a computer, keep your desk at a height where your hands are slightly lower than your elbows. Slide your chair under your desk so you are close enough to maintain good posture. When working at a computer, place your monitor at a height where you are looking straight ahead andyou do not have to tilt your head forward or downward to look at the screen. Resting When lying down and resting, avoid positions that are most painful for you. If you have pain with activities such as sitting, bending, stooping, or squatting, lie in a position in which your body does not bend very much. For example, avoid curling up on your side with your arms and knees near your chest ( position). If you have pain with activities such as standing for a long time or reaching with your arms, lie with your spine in a neutral position and bend your knees slightly. Try the following positions: ? Lying on your side with a pillow between your knees. ? Lying on your back with a pillow under your knees. Lifting When lifting objects, keep your feet at least shoulder width apart and tighten your abdominal muscles. Bend your knees and hips and keep your spine neutral. It is important to lift using the strength ofyour legs, not your back. Do not lock your knees straight out. Always ask for help to lift heavy or awkward objects. This information is not intended to replace advice given to you by your health care provider. Make sure you discuss any questions you have with your health care provider. Document Released: 2006-11-01 Document Updated: 2023-02-09 Document Reviewed: 2023-02-09 [employer] Patient Education ? 2023 [employer]. * Patient Education Note - Brittany Saldana MD - 12/07/2024 4:03 PM EST Images from the original note were not included. Patient Education Table of Contents Radicular Pain To view videos and all your education online visit, [email or web address] or scan this QR code with your smartphone. Access to this content will in one year. Radicular Pain Radicular pain is a type of pain that spreads from your back or neck along a spinal nerve. Spinal nerves are nerves that leave the spinal cord and go to the muscles. Radicular pain is sometimes called radiculopathy, radiculitis, or a pinched nerve. When you have this type of pain, you may also haveweakness, numbness, or tingling in the area of your body that is supplied by the nerve. The pain may feel sharp and burning. Depending on which spinal nerve is affected, the pain may occur in the: Neck area (cervical radicular pain). You may also feel pain, numbness, weakness, or tingling in thearms. Mid-spine area (thoracic radicular pain). You would feel this pain in the back and chest. This typeis rare. Lower back area (lumbar radicular pain). You would feel this pain as low back pain. You may feel pain, numbness, weakness, or tingling in the buttocks or legs. Sciatica is a type of lumbar radicular pain that shoots down the back of the leg. Radicular pain occurs when one of the spinal nerves becomes irritated or squeezed (compressed). It is often caused by something pushing on a spinal nerve, such as one of the bones of the spine (vertebrae) or one of the round cushions between vertebrae (intervertebral disks). This can result from: An injury. Wear and tear or aging of a disk. The growth of a bone spur that pushes on the nerve. Radicular pain often goes away when you follow instructions from your health care provider for relieving pain at home. How is this treated? Treatment may depend on the cause of the condition and may include: Working with a physical therapist. Taking pain medicine. Applying heat or ice or both to the affected areas. Doing stretches to improve flexibility. Having surgery. This may be needed if other treatments do not help. Different types of surgery may be done depending on the cause of this condition. Follow these instructions at home: Managing pain If directed, put ice on the affected area. To do this: ? Put ice in a plastic bag. ? Place a towel between your skin and the bag. ? Leave the ice on for 20 minutes, 2?3 times a day. ? Remove the ice if your skin turns bright red. This is very important. If you cannot feel pain, heat, or cold, you have a greater risk of damage to the area. If directed, apply heat to the affected area as often as told by your health care provider. Use theheat source that your health care provider recommends, such as a moist heat pack or a heating pad. ? Place a towel between your skin and the heat source. ? Leave the heat on for 20?30 minutes. ? Remove the heat if your skin turns bright red. This is especially important if you are unable to feel pain, heat, or cold. You have a greater risk of getting burned. Activity Do not sit or rest in bed for long periods of time. Try to stay as active as possible. Ask your health care provider what type of exercise or activity is best for you. Avoid activities that make your pain worse, such as bending and lifting. You may have to avoid lifting. Ask your health care provider how much you can safely lift. Practice using proper technique when lifting items. Proper lifting technique involves bending your knees and rising up. Do strength and ilywb-ly-lkwsop exercises only as told by your health care provider or physical therapist. General instructions Take kizn-hxs-qqhcoig and prescription medicines only as told by your health care provider. Pay attention to any changes in your symptoms. Keep all follow-up visits. This is important. Contact a health care provider if: Your pain and other symptoms get worse. Your pain medicine is not helping. Your pain has not improved after a few weeks of home care. You have a fever. Get help right away if: You have severe pain, weakness, or numbness. You have difficulty with bladder or bowel control. Summary Radicular pain is a type of pain that spreads from your back or neck along a spinal nerve. When you have radicular pain, you may also have weakness, numbness, or tingling in the area of yourbody that is supplied by the nerve. The pain may feel sharp or burning. Radicular pain may be treated with ice, heat, medicines, or physical therapy. This information is not intended to replace advice given to you by your health care provider. Make sure you discuss any questions you have with your health care provider. Document Released: 2005-12-09 Document Updated: 2022-05-07 Document Reviewed: 2022-05-07 [employer] Patient Education ? 2023 [employer]. * Assessment & Plan Note - Isabel Sanders - 12/07/2024 11:42 AM ESTAssociated Problem(s): Polyneuropathy associated with underlying disease ([facility]) Most likely due to neurofibromas, pt is doing well on Gabapentin. * Assessment & Plan Note - Isabel Sanders - 12/07/2024 11:41 AM ESTAssociated Problem(s): Lumbar radiculopathy, chronic Pt occasionally has sciatica and NCS radiculopathy. Continue Gabapentin, I gave him information regarding stretching exercises for sciatica. * Assessment & Plan Note - Isabel Sanders - 12/07/2024 11:39 AM ESTAssociated Problem(s): Type 2 diabetes mellitus without complication, without long-term current useof insulin ([facility]) Controlled. A1c is at goal. Not on medications after he lost weight s/p geriatric surgery. Counseled re more frequent low calorie/carb meals. Encouraged physical activity as tolerated. FU in 3 months. * Assessment & Plan Note - Isabel Sanders - 12/07/2024 11:25 AM ESTAssociated Problem(s): Recurrent major depressive disorder, in partial remission ([facility]/HCC) Pt is doing well on Trazodone and he takes adderall for ADD. FU closely with psychotherapist, continue taking medications as above. Pt feels safe at home and is able to reach out for safety. * Assessment & Plan Note - Isabel Sanders - 12/07/2024 11:23 AM ESTAssociated Problem(s): Essential (primary) hypertension It is controlled today, it looks like it was not well controlled at home. Pt will bring BP records next week and drop at front office developer for me to review. Continue Lisinopril 7.5 mg and FU with me in 4 months. * Assessment & Plan Note - Isabel Sanders - 12/07/2024 10:48 AM ESTAssociated Problem(s): Neurofibromatosis, type 1 (von Recklinghausen's disease) ([facility]/HCC) Has diffused neurofibromas on skin and intra abdominally, not in the brain. Pt is mostly asymptomatic, does not have any seizures. Will FU once per year. documented in this encounter Plan of Treatment Upcoming Encounters Date Type Department Care Team (Late st Contact Info) Description 01/30/2025 1:15 PM EDT Office Visit [address] [address] Brandon Caballero MD [address] [place] [address] documented as of this encounter Goals Goal Patient Goal Type Associated Problems Recent Progress Patient-Stated? Author Blood Pressure < 140/90 Blood Pressure 160/80(2024 3:41 PM EST) No Venkatesh Skinner PharmD Hemoglobin A1c < 7 Result Component 5.1( 11:19 AM EST) No Venkatesh Skinner, [place] documented as of this encounter Procedures Procedure Name Priority Date/Time Associated Diagnosis Comments POCT GLYCATED HEMOGLOBIN, TOTAL Routine 12/07/2024 11:19 AM EST Type 2 diabetes mellitus without complication, without long-term current use of insulin ([facility]) POCT GLUCOSE Routine 12/07/2024 11:19 AM EST Type 2 diabetes mellitus without complication, without long-term current use of insulin ([facility]) documented in this encounter Results * POCT Glucose (12/07/2024 11:19 AM EST) Glucose Blood, POC 105 60 - 200 mg/dL Blood Capillary blood specimen / Unknown 12/07/2024 11:19 AM EST Brittany Saldana MD POINT OF CARE TEST ENTER /EDIT ORDERABLES Final Result * POCT HGB A1C (12/07/2024 11:19 AM EST) Hemoglobin A1C 5.1 4.0 - 6.0 % Blood 12/07/2024 11:1 9 AM EST Brittany Saldana MD POINT OF CARE TEST ENTER /EDIT ORDERABLES Final Result documented in this encounter Visit Diagnoses Diagnosis Essential (primary) hypertension- Primary Unspecified essential hypertension Recurrent major depressive disorder, in partial remission ([facility]) Neurofibromatosis, type 1 (von Recklinghausen's disease) ([facility]) Neurofibromatosis, Type 1 (von Recklinghausen's disease) Type 2 diabetes mellitus without complication, without long-term current use of insulin (CMS/HCC) Lumbar radiculopathy, chronic Polyneuropathy associated with underlying disease (CMS/HCC) documented in this encounter Additional Health Concerns Assessment Noted Time PHQ-9 Depression Total Score: 2 12/07/19 25 10:39 AM EST documented as of this encounter Care Teams Electrical Maintenance Worker Relationship Specialty Start Date End Date Brittany Saldana MD [address] [place] [address] PCP - General Family Medicine 05/08/20 Darrin Hernandez FNP [address] [place] [address] Nurse Practitioner Family Medicine 10/19/23 documented as of this encounter
--- OUTSIDE RECORDS SUMMARY | 2025-01-03 13:16 | XMS_ITS | Encounter Summary ---
Author Organization [employer] Address [address] [facility] 7t [place] [address] Care Team Providers Care Breading Machine Tender Name Role Phone Brittany Saldana MD Primary Care Provider + Darrin Hernandez Unavailable Unavailable Encounter Details Date Type Department Care Team (Latest Contact Info) Description 12/07/2024 Travel Social History Tobacco Use Types Packs/Day Years Used Date Smoking Tobacco: Never Smokeless Tobacco: Never Alcohol Use Standard Drinks/Week Comments Not Currently [...] AM EDT documented as of this encounter Plan of Treatment Upcoming Encounters Date Type Department Care Team (Late st Contact Info) Description 01/30/2025 1:15 PM EDT Office Visit [facility] [address] [place] [address] Brandon Caballero MD [address] [place] [address] documented as of this encounter Goals Goal Patient Goal Type Associated Problems Recent Progress Patient-Stated? Author Blood Pressure < 140/90 Blood Pressure 160/80(2024 3:41 PM EST) No Venkatesh Skinner PharmD Hemoglobin A1c < 7 Result Component 5.1( 11:19 AM EST) No Venkatesh Skinner PharmD documented as of this encounter Visit Diagnoses Not on filedocumented in this encounter Additional Health Concerns Assessment Noted Time PHQ-9 Depression Total Score: 2 12/07/19 25 10:39 AM EST documented as of this encounter Care Teams Breading Machine Tender Relationship Specialty Start Date End Date Brittany Saldana MD [address] [place] [address] PCP - General Family Medicine 05/08/20 Darrin Hernandez FNP [address] [place] [address] Nurse Practitioner Family Medicine 10/19/23 documented as of this encounter
--- OUTSIDE RECORDS SUMMARY | 2025-01-03 13:17 | XMS_ITS | Encounter Summary ---
Author Organization [employer] Address [address] [facility] 7t [place] [address] Care Team Providers Care Client Project Coordinator Name Role Phone Brittany Saldana MD Primary Care Provider + Darrin Hernandez Unavailable Unavailable Encounter Details Date Type Department Care Team (Latest Contact Info) Description 12/13/2024 Travel Social History Tobacco Use Types Packs/Day [...] Description 01/30/2025 1:15 PM EDT Office Visit [facility] MED[facility]INE [address] [place] [address] Brandon Caballero MD [address] [place] [address] documented as of this encounter Goals Goal [...] documented as of this encounter Care Teams Client Project Coordinator Relationship Specialty Start Date End Date Brittany Saldana MD [address] [place] [address] PCP - General Family Medicine 05/08/20 Darrin Hernandez FNP [address] [place] [address] Nurse Practitioner Family Medicine 10/19/23 documented as of this encounter
--- OUTSIDE RECORDS SUMMARY | 2025-01-03 13:17 | XMS_ITS | Encounter Summary ---
Author Organization [employer] Address [address] [place] [address] 7 [place] [address] Care Team Providers Care Sail Lay Out Worker Name Role Phone Brittany Saldana MD Primary Care Provider + Darrin Hernandez Unavailable Unavailable Encounter Details Date Type Department Care Team (Latest Contact Info) Description 08/07/2022 Abstract [facility] CONVERSIONS Dental, Provider, DDS Social History Tobacco Use Types Packs/Day Years Used Date Smoking Tobacco: Never Assessed Sex and Gender Information Value Date Recorded [...] Description 01/30/2025 1:15 PM EDT Office Visit [facility] MEDICINE [address] [place] [address] Brandon Caballero MD [address] [place] [address] documented as of this encounter Visit Diagnoses Not on filedocumented in this encounter Care Teams Sail Lay Out Worker Relationship Specialty Start Date End Date Brittany Saldana MD [address] [place] [address] PCP - General Family Medicine 05/08/20 Darrin Hernandez FNP [address] [place], [place] [address] [address] Nurse Practitioner Family Medicine 10/19/23 documented as of this encounter
--- OUTSIDE RECORDS SUMMARY | 2025-01-03 13:17 | XMS_ITS | Encounter Summary ---
Author Organization [employer] Address [address] [place] [address] 7 [place] [address] Care Team Providers Care Project Controls Specialist Name Role Phone Brittany Saldana MD Primary Care Provider + Darrin Hernandez Unavailable Unavailable Reason for Visit * Reason Onset Date Comments Med Refill 06/11/2024 Encounter Details Date Type Department Care Team (Late st Contact Info) Description 06/11/2024 Refill [facility] [address] [place] [address] Brittany Saldana MD [address] [place] [address] Social History Tobacco Use Types Packs/Day Years Used Date Smoking Tobacco: Never Smokeless Tobacco: Never Alcohol Use Standard Drinks/Week Comments Not Currently 0 (1 standard drink = 0.6 oz pur e alcohol) Depression Answer Date Recorded Patient Health Questionnaire-9 Score 4 03/06/2024 Patient Health Questionnaire-9 Score 4 03/06/2024 Last PHQ-9: Questionnaire Data Not on file 0 03/06/2024 Housing Stability Answer Date Recorded What is [...] Date Recorded Patient Health Questionnaire-2 Score 2 03/06/2024 Sex and Gender Information Value Date Recorded [...] Description 01/30/2025 1:15 PM EDT Office Visit [facility] [address] [place] [phone] Brandon Caballero MD [address] [place] [address] documented as of this encounter Goals Goal [...] Assessment Noted Time PHQ-9 Depression Total Score: 4 03/06/20 24 2:22 PM EDT documented as of this encounter Care Teams Project Controls Specialist Relationship Specialty Start Date End Date Brittany Saldana MD [address] [place] [address] PCP - General Family Medicine 6/24/20 Darrin Hernandez FNP [address] [place] [address] Nurse Practitioner Family Medicine 10/19/23 documented as of this encounter
--- OUTSIDE RECORDS SUMMARY | 2025-01-03 13:17 | XMS_ITS | Encounter Summary ---
Author Organization [employer] Address [address] [place] [address] 7 [place] [address] Care Team Providers Care In Home Aide Name Role Phone Brittany Saldana MD Primary Care Provider + Darrin Hernandez Unavailable Unavailable Reason for Visit * Reason Onset Date Comments Med Refill 08/03/2024 Encounter Details Date Type Department Care Team (Late st Contact Info) Description 08/03/2024 Refill [facility] [address] [place] [address] Brandon Caballero MD [address] [place] [address] Type 2 diabetes mellitus without complication, without long-term current use of insulin ([facility]) Social History Tobacco Use Types Packs/Day Years [...] Description 01/30/2025 1:15 PM EDT Office Visit [facility] MEDICINE [address] [place] [phone] Brandon Caballero MD [address] [place] [address] documented as of this encounter Goals Goal Patient Goal Type Associated Problems Recent Progress Patient-Stated? Author Blood Pressure < 140/90 Blood Pressure 160/80(2024 3:41 PM EST) No Venkatesh Skinner PharmD Hemoglobin A1c < 7 Result Component 5.1( 11:19 AM EST) No Venkatesh Skinner PharmD documented as of this encounter Visit Diagnoses Diagnosis Type 2 diabetes mellitus without complication, without long-term current use of insulin ([facility]) documented in this encounter Additional Health Concerns Assessment Noted Time PHQ-9 Depression Total Score: 4 03/06/20 24 2:22 PM EDT documented as of this encounter Care Teams In Home Aide Relationship Specialty Start Date End Date Brittany Saldana MD [address] [place] [address] PCP - General Family Medicine 05/08/20 Darrin Hernandez FNP [address] [place] [address] Nurse Practitioner Family Medicine 10/19/23 documented as of this encounter
--- OUTSIDE RECORDS SUMMARY | 2025-01-03 13:17 | XMS_ITS | Encounter Summary ---
Author Organization [email or web address] Address [address] [place] [address] 7 [place] [address] Care Team Providers Care Mirror Fabrication Supervisor Name Role Phone Brittany Saldana MD Primary Care Provider + Darrin Hernandez Unavailable Unavailable Reason for Visit * Reason Onset Date Comments Med Refill 04/16/2024 Encounter Details Date Type Department Care Team (Late st Contact Info) Description 04/16/[address] [facility] MEDICINE [address] [place] [address] Darrin Hernandez FNP PTSD (post-traumatic stress disorder) Social History Tobacco Use Types Packs/Day Years [...] Description 01/30/2025 1:15 PM EDT Office Visit [facility] MEDICINE [address] [place] [address] Brandon Caballero MD [address] [place] [address] documented as of this encounter Goals Goal Patient Goal Type Associated Problems Recent Progress Patient-Stated? Author Blood Pressure < 140/90 Blood Pressure 160/80(2024 3:41 PM EST) No Venkatesh Skinner PharmD Hemoglobin A1c < 7 Result Component 5.1( 11:19 AM EST) No Venkatesh Skinner PharmD documented as of this encounter Visit Diagnoses Diagnosis PTSD (post-traumatic stress disorder) Posttraumatic stress disorder documented in this encounter Additional Health Concerns Assessment Noted Time PHQ-9 Depression Total Score: 4 03/06/20 24 2:22 PM EDT documented as of this encounter Care Teams Mirror Fabrication Supervisor Relationship Specialty Start Date End Date Brittany Saldana MD [address] [place] [address] PCP - General Family Medicine 05/08/20 Darrin Hernandez FNP [address] [place] [address] Nurse Practitioner Family Medicine 10/19/23 documented as of this encounter
--- OUTSIDE RECORDS SUMMARY | 2025-01-03 13:17 | XMS_ITS | Encounter Summary ---
Author Organization [employer] Address [address] [facility] 7 [place] [address] Care Team Providers Care Manager Med Surg Name Role Phone Brittany Saldana MD Primary Care Provider + Darrin Hernandez Unavailable Unavailable Reason for Visit * Reason Comments GBAT Encounter Details Date Type Department Care Team (Late st Contact Info) Description 12/13/2024 10:30 AM EST Office Visit [facility] MEDICINE [address] [place] [address] Migue Stephens MD [address] [place] [address] Alcohol use disorder, severe, in sustained remission (CMS/HCC) (Primary Dx) Social History Tobacco Use Types Packs/Day Years [...] the past 12 months, has t he [employer], gas, oil or water company threatened to [...] AM EDT documented as of this encounter Progress Notes * Migue Stephens MD - 12/13/2024 10:30 AM EST LAST GBAT VISIT 11/29/2024 Patient presents for Group-Based Opioid Treatment for AUD Patient presents for his GBAT meeting Reviewed the group goals, expectations and policies Consented to the group treatment options Actively participated in the group discussion with the topic of: Forgiveness Following staff present at the visit: Physician, Audio Engineer, Team RN, Clinician, and MedicalAssistant Opportunities provided to address individual medical/medication/BH concerns States doing well without cravings or relapse Undergoing training through [employer] Also signed up for [employer] Participating in the [employer] activities TODAY GBAT VISIT 12/13/2024 Patient presents for Group-Based Opioid Treatment for AUD Patient presents for his GBAT meeting Reviewed the group goals, expectations and policies Consented to the group treatment options Actively participated in the group discussion with the topic of: Extended Check-In Following staff present at the visit: Physician, Audio Engineer, Team RN, Clinician, and MedicalAssistant Opportunities provided to address individual medical/medication/BH concerns States doing well without cravings or relapse Undergoing training through [employer] Also signed up for [employer] Review of Systems Psychiatric/Behavioral: Negative for behavioral problems and dysphoric mood. The patient is not nervous/anxious. Physical Exam Constitutional: Appearance: Normal appearance. Pulmonary: Effort: Pulmonary effort is normal. Neurological: Mental Status: He is alert. Psychiatric: Mood and Affect: Mood normal. Behavior: Behavior normal. Dane was seen today for gbat. Diagnoses and all orders for this visit: Alcohol use disorder, severe, in sustained remission (CMS/HCC) (Primary) Patient presents for Group-Based Addiction Treatment of AUD Reviewed the group goals, expectations and policies Consented to the group treatment options Actively participated in the group discussed Future discussion topics reviewed Reviewed behavioral modification and accessing services Group counseling provided with a focus on support system, tools for achieving/maintaining recovery Reviewed barriers for these goals Discussed strategies to address when faced situations that may trigger use [employer] ACCOUNT DEVELOPMENT MANAGER reviewed Undergoing training through [employer] Also signed up for [employer] Participating in the [employer] activities Following staff present at the visit: Physician, Team RN, Clinician, Audio Engineer and Director Electronics Follow up in 1 week for the next GBAT meeting This information has been disclosed to you from records protected by federal confidentiality rules (42 CFR Part 2). The federal rules prohibit you from making any further disclosure of information inthis record that identifies a patient as having or having had a substance use disorder either directly, by reference to publicly available information, or through verification of such identification by another person unless further disclosure is expressly permitted by the written consent of the individual whose information is being disclosed or as otherwise permitted by (see2.3.1). The federal rules restrict any use of the information to investigate or prosecute with regard to a crime any patient with a substance use disorder, except as provided at 2.12??(5) and 2.65. documented in this encounter Plan of Treatment Upcoming Encounters Date Type Department Care Team (Late st Contact Info) Description 01/30/2025 1:15 PM EDT Office Visit [facility] MEDICINE [address] [place] [address] Brandon Caballero MD [address] [place], [place] [phone] documented as of this encounter Goals Goal Patient Goal Type Associated Problems Recent Progress Patient-Stated? Author Blood Pressure < 140/90 Blood Pressure 160/80(2024 3:41 PM EST) No Venkatesh Skinner PharmD Hemoglobin A1c < 7 Result Component 5.1( 11:19 AM EST) No Venkatesh Skinner PharmD documented as of this encounter Visit Diagnoses Diagnosis Alcohol use disorder, severe, in sustained remission (CMS/[facility])- Primary documented in this encounter Additional Health Concerns Assessment Noted Time PHQ-9 Depression Total Score: 2 12/07/19 25 10:39 AM EST documented as of this encounter Care Teams Manager Med Surg Relationship Specialty Start Date End Date Brittany Saldana MD [address] [place] [address] PCP - General Family Medicine 05/08/20 Darrin Hernandez FNP [address] [place] [address] Nurse Practitioner Family Medicine 10/19/23 documented as of this encounter
--- OUTSIDE RECORDS SUMMARY | 2025-01-03 13:17 | XMS_ITS | Encounter Summary ---
Author Organization [employer] Address [address] [place] [address] 7 [place] [address] Care Team Providers Care Perl Programmer Name Role Phone Brittany Saldana MD Primary Care Provider + Darrin Hernandez Unavailable Unavailable Reason for Visit * Reason Onset Date Comments Durable Medical Equipment 12/20/2024 DME Re uqest: [facility] hospital bed Encounter Details Date Type Department Care Team (Late st Contact Info) Description 12/20/2024 Telephone [facility] MEDICINE [address] [place] [address] Brittany Saldana MD [address] [place] [address] Durable Medical Equipment (DME Reuqest: [facility] bed) Social History Tobacco Use Types Packs/Day Years [...] is your housing situation today? I have bestjimena howard 02/29/[address] you [...] the past 12 months, has t he [employer], gas, oil or water [email or web address] threatened to shut off services in your home? No 02/29/2024 Depression Answer Date Recorded Patient Health Questionnaire-2 Score 2 12/07/2024 Sex and Gender Information Value Date Recorded Sex Assigned at Male 09/14/2022 10:36 AM EDT Legal Sex Male 10:36 AM EDT Gender Identity Male 09/14/2022 10:36 AM EDT Sexual Orientation Choose not to disclose 2021 10:36 AM EDT documented as of this encounter Miscellaneous Notes * Telephone Encounter - Sowmya Traore - 01/03/2025 11:57 AM EST PA was Approved for Methylphenidate HCL ER. Approval was uploaded to Media. * Telephone Encounter - Sowmya Traore - 12/26/2024 3:30 PM EST PA initiated on [employer]eds for Methyl phenydate . Approval/denial pending. * Telephone Encounter - Brittany Saldnaa MD - 12/21/2024 4:06 PM EST Re hospital bed, yes, please reach out to [facility] for the requirements. Now, we received a PA request for Methyl phenydate tablets on 12/12/24, he was given 1 mo supply. I called [facility] med management/ [facility] at [phone] spoke with Linda who gave me the Duran # toprocess the PA (Duran # [id number]) at [employer] (click on RU corner to request duran ) and followthe instructions for a PA. * Telephone Encounter - Sowmya Traore - 12/20/2024 10:26 AM EST Please see below request for hospital bed. Please Advise. documented in this encounter Plan of Treatment Upcoming Encounters Date Type Department Care Team (Late st Contact Info) Description 01/30/2025 1:15 PM EDT Office Visit [facility] MEDICINE [address] [place] [address] Brandon Caballero MD [address] [place] [address] documented as of this encounter Goals Goal [...] documented as of this encounter Care Teams Perl Programmer Relationship Specialty Start Date End Date Brittany Saldana MD [address] [place] [address] PCP - General Family Medicine 05/08/20 Darrin Hernandez FNP [address] [place] [address] Nurse Practitioner Family Medicine 10/19/23 documented as of this encounter
--- OUTSIDE RECORDS SUMMARY | 2025-01-03 13:17 | XMS_ITS | Encounter Summary ---
Author Organization [employer] Address [address] [facility] 7 [place] [address] Care Team Providers Care Switchboard Operator Name Role Phone Brittany Saldana MD Primary Care Provider + Darrin Hernandez Unavailable Unavailable Reason for Visit * Reason Comments Med Refill Encounter Details Date Type Department Care Team (Late st Contact Info) Description 04/21/[address] [facility] MEDICINE [address] [place] [address] Brittany Saldana MD [address] [place] [address] Mild intermittent asthma without complication Social History Tobacco Use Types Packs/Day Years [...] PM EDT Office Visit [facility] MEDICINE [address] [place] [address] Brandon Caballero MD [address] [place] [address] documented as of this encounter Goals Goal Patient Goal Type Associated Problems Recent Progress Patient-Stated? Author Blood Pressure < 140/90 Blood Pressure 160/80(2024 3:41 PM EST) No Venkatesh Skinner PharmD Hemoglobin A1c < 7 Result Component 5.1( 11:19 AM EST) No Venkatesh Skinner PharmD documented as of this encounter Visit Diagnoses Diagnosis Mild intermittent asthma without complication documented in this encounter Additional Health Concerns Assessment Noted Time PHQ-9 Depression Total Score: 4 03/06/20 24 2:22 PM EDT documented as of this encounter Care Teams Switchboard Operator Relationship Specialty Start Date End Date Brittany Saldana MD [address] [place] [address] PCP - General Family Medicine 05/08/20 Darrin Hernandez FNP [address] [place] [address] Nurse Practitioner Family Medicine 10/19/23 documented as of this encounter
--- OUTSIDE RECORDS SUMMARY | 2025-01-03 13:17 | XMS_ITS | Encounter Summary ---
Author Organization [employer] Address 75 [facility] 7 [place] [address] Care Team Providers Care Gas Turbine Powerplant Mechanic Helper Name Role Phone Brittany Saldana MD Primary Care Provider + Darrin Hernandez Unavailable Unavailable Reason for Visit * Reason Comments [facility] Recovery Supports Encounter Details Date Type Department Care Team (Late st Contact Info) Description 12/05/2024 Patient Outreach [facility] MEDICINE [address] [place] [address] Ted Olvera Recovery Supports Social History Tobacco Use Types Packs/Day Years [...] your housing situation today? I have best lee 02/29/[address] you li [...] as of this encounter Progress Notes * Ted Olvera - 12/05/2024 4:05 PM EST I met with Dane ruff. Setting: in person at [facility] Recovery Wellness Goals worked on: Social Stability Action taken/next steps: Attended recovery support group and Offered person centered recovery support Additional comments: rsg Ted Olvera documented in this encounter Plan of Treatment Upcoming Encounters Date Type Department Care Team (Late st Contact Info) Description 01/30/2025 1:15 PM EDT Office Visit [facility] MEDICINE [address] [place] [address] Brandon Caballero MD [address] [place] [address] documented as of this encounter Goals Goal Patient Goal Type Associated Problems Recent Progress Patient-Stated? Author Blood Pressure < 140/90 Blood Pressure 160/80(2024 3:41 PM EST) No Venkatesh Skinner PharmHillary Hemoglobin A1c < 7 Result Component 5.1( 11:19 AM EST) No Venkatesh Skinner PharmD documented as of this encounter Visit Diagnoses Not on filedocumented in this encounter Additional Health Concerns Assessment Noted Time PHQ-9 Depression Total Score: 4 03/06/20 24 2:22 PM EDT documented as of this encounter Care Teams Gas Turbine Powerplant Mechanic Helper Relationship Specialty Start Date End Date Brittany Saldana MD [address] [place] [address] PCP - General Family Medicine 05/08/20 Darrin Hernandez FNP [address] [place] [address] Nurse Practitioner Family Medicine 10/19/23 documented as of this encounter
--- OUTSIDE RECORDS SUMMARY | 2025-01-03 13:17 | XMS_ITS | Encounter Summary ---
Author Organization [employer] Address 75 [facility] 7t [place] [address] Care Team Providers Care Leather Production Artisan Name Role Phone Brittany Saldana MD Primary Care Provider + Darrin Hernandez Unavailable Unavailable Encounter Details Date Type Department Care Team (Latest Contact Info) Description 12/19/2024 Travel Social History Tobacco Use Types Packs/Day [...] 1:15 PM EDT Office Visit [facility] MEDICINE [address] [place] [address] Brandon Caballero MD [address] [place] [address] documented as of this encounter Goals Goal [...] documented as of this encounter Care Teams Leather Production Artisan Relationship Specialty Start Date End Date Brittany Saldana MD [address] [place] [address] PCP - General Family Medicine 05/08/20 Darrin Hernandez FNP [address] [place] [address] Nurse Practitioner Family Medicine 10/19/23 documented as of this encounter
--- OUTSIDE RECORDS SUMMARY | 2025-01-03 13:17 | XMS_ITS | Encounter Summary ---
Author Organization [employer] Address [address] [facility] 7 [place] [address] Care Team Providers Care Supervisor Plastering Name Role Phone Brittany Saldana MD Primary Care Provider + Darrin Hernandez Unavailable Unavailable Reason for Visit * Reason Comments [facility] Recovery Supports Encounter Details Date Type Department Care Team (Late st Contact Info) Description 12/12/2024 Patient Outreach [facility] MEDICINE [address] [place] [address] Ted Olvera Recovery Supports Social History Tobacco [...] encounter Progress Notes * Ted Olvera - 12/12/2024 3:27 PM EST I met with Dane ruff. Setting: in person at [facility] Recovery Wellness Goals worked on: Social Stability Action taken/next steps: Attended recovery support group Additional comments: RSG Ted Olvera documented in this encounter Plan of Treatment Upcoming Encounters Date Type Department Care Team (Late st Contact Info) Description 01/30/2025 1:15 PM EDT Office Visit [facility] MEDICINE [address] [place] [address] Brandon Caballero MD [address] [place] [address] documented as of this encounter Goals Goal [...] Time PHQ-9 Depression Total Score: 2 12/07/19 10:39 AM EST documented as of this encounter Care Teams Supervisor Plastering Relationship Specialty Start Date End Date Brittany Saldana MD [address] [place] [address] PCP - General Family Medicine 05/08/20 Darrin Hernandez FNP [address] [place] [address] Nurse Practitioner Family Medicine 10/19/23 documented as of this encounter
--- OUTSIDE RECORDS SUMMARY | 2025-01-03 13:17 | XMS_ITS | Encounter Summary ---
Author Organization [employer] Address [address] [place] [address] 7 [place] [address] Care Team Providers Care Hand Straightener Name Role Phone Brittany Saldana MD Primary Care Provider + Darrin Hernandez Unavailable Unavailable Reason for Visit * Reason Comments Med Refill Encounter Details Date Type Department Care Team ([facility] Contact Info) Description 06/03/2023 Refill [facility] MEDICINE [address] [place] [address] Darrin Hernandez FNP Depression, unspecified depression type Social History Tobacco Use Types Packs/Day Years Used Date Smoking Tobacco: Never Smokeless Tobacco: Never Alcohol Use Standard Drinks/Week Comments Not Currently 0 (1 standard drink = 0.6 oz pur e alcohol) Sex and Gender Information Value Date Recorded Sex Assigned at Male 09/14/2022 10:36 AM EDT Legal Sex Male 10:36 AM EDT Gender Identity Male 09/14/2022 10:36 AM EDT Sexual Orientation Choose not to disclose 2021 10:36 AM EDT COVID-19 Exposure Response Date Recorded In the last 10 days, have yo u been in contact with someone who was confirmed or suspected to have Coronavirus/COVID-19? No / Unsure 05/27/2023 3:23 PM EDT documented as of this encounter Plan of Treatment Upcoming Encounters Date Type Department Care Team ([facility] Contact Info) Description 01/30/2025 1:15 PM EDT Office Visit [facility] MEDICINE [address] [place] [address] Brandon Caballero MD [address] [place] [address] documented as of this encounter Visit Diagnoses Diagnosis Depression, unspecified depression type documented in this encounter Additional Health Concerns Assessment Noted Time PHQ-9 Depression Total Score: 11 023 10:47 AM EDT documented as of this encounter Care Teams Hand Straightener Relationship Specialty Start Date End Date Brittany Saldana MD [address] [place] [address] PCP - General Family Medicine 05/08/20 Darrin Hernandez FNP [address] [place] [address] Nurse Practitioner Family Medicine 10/19/23 documented as of this encounter
--- OUTSIDE RECORDS SUMMARY | 2025-01-03 13:17 | XMS_ITS | Clinical Summary ---
Author Organization [facility] Address [address] [place] [address] Care Team Providers Care Frozen Food Selector Name Role Phone Selvin Payan MD Primary Care Provider [phone] Allergies Active Allergy Reactions Criticality Noted Date Comments Penicillins 03/08/2018 Medications Medication Sig Dispensed Refills Start Date End Date Status felodipine (PLENDIL) 5 MG 24 hr tablet 5 mg. 0 02/09/2018 Active FLUCELVAX QUADRIVALENT 0.5 ML MAVERICK ADM 0.5ML IM UTD 0 12/17/2017 Active lisinopril (PRINIVIL,ZESTRIL) tablet 40 mg 40 mg. 0 02/09/2018 Active omeprazole (PRILOSEC) 40 MG capsule 40 mg. 0 02/09/2018 Active polyethylene glycol-electrolytes (NULYTELY) 420 g solution MIX AND DRINK 240 ML PO Q 10 MINUTES 0 12/06/2017 Active CIALIS 20 MG tablet 20 mg. 11 03/05/2018 Activ e tamsulosin (FLOMAX) 0.4 MG CAPS 0.4 mg. 0 02/09/2018 Active testosterone (ANDROGEL) gel 1% (50 mg testosterone /5 g gel) 50 mg of testosterone. 0 03/07/2018 Active tadalafil (CIALIS) 5 MG tablet Take 1 tablet (5 mg total) by mouth daily. 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 Family History Medical History Relation Name Comments Cancer Mother Relation Name Status Comments Mother Social History Tobacco Use Types Packs/Day Years Used Date Smoking Tobacco: Former Smokeless Tobacco: Never Alcohol Use Standard Drinks/Week Comments Yes 0 (1 standard drink = 0.6 oz pur e alcohol) Sex and Gender Information Value Date Recorded Sex Assigned at Not on file Gender Identity Not on file Sexual Orientation Not on file Last Filed Vital Signs Vital Sign Reading Time Taken Comments Blood Pressure 120/50 03/08/2018 9:46 AM EDT pt states diastolic is always at 50 Pulse - - Temperature - - Respiratory Rate - - Oxygen Saturation - - Inhaled Oxygen Concentration - - Weight 99.5 kg (219 lb 6.4 oz) 03/08/2018 9:46 AM EDT Height 162.6 cm (5' 4 ) 03/08/2018 9:46 AM EDT Body Mass Index 37.66 03/08/2018 9:46 AM EDT Plan of Treatment Health Maintenance Due Date Last Done Comments Hepatitis C Screening 1957 COVID-19 Vaccine (#1) 1957 Depression Screening 1969 Preventative Health Evaluation 1975 DTap / Tdap / Td (1 - Tdap) 01/20/1976 Colon Cancer Screening (Colonoscopy) 2002 Shingrix-Zoster Vaccine (1 of 2) 2007 Fall Risk Assessment 2022 Pneumococcal Vaccine (1 of 1 - PCV) 2022 Influenza Vaccine (#1) 2024 RSV Adult > 60+ Yrs or Pregn ant (1 - 1-dose 75+ series) 01/20/2032 Hepatitis B Vaccines Aged Out No long er eligible based on patient's age to complete this topic RSV Ped < 20 months Aged Out No longe r eligible based on patient's age to complete this topic Care Teams Frozen Food Selector Relationship Specialty Start Date End Date Selvin Payan MD [address] [place] [address] PCP - General Internal Medicine 03/08/18
--- OUTSIDE RECORDS SUMMARY | 2025-01-03 13:17 | XMS_ITS | Encounter Summary ---
Author Organization [employer] Address [address] [place] [address] 7 [place] [address] Care Team Providers Care Window Glazier Helper Name Role Phone Brittany Saldana MD Primary Care Provider + Darrin Hernandez Unavailable Unavailable Reason for Visit * Reason Onset Date Comments Med Refill 06/19/2024 Encounter Details Date Type Department Care Team (Late st Contact Info) Description 06/19/2024 Refill [facility] MEDICINE [address] [place] [address] Brittany Saldana MD [address] [place] [address] Alcoholism (CMS/HCC); Essential (primary) hypertension Social History Tobacco Use Types Packs/Day Years [...] Description 01/30/2025 1:15 PM EDT Office Visit [facility] MEDICINE [address] [place] [address] Brandon Caballero MD [address] [place] [address] documented as of this encounter Goals Goal Patient Goal Type Associated Problems Recent Progress Patient-Stated? Author Blood Pressure < 140/90 Blood Pressure 160/80(2024 3:41 PM EST) No Venkatesh Skinner, [place] Hemoglobin A1c < 7 Result Component 5.1( 11:19 AM EST) No Venkatesh Skinner PharmD documented as of this encounter Visit Diagnoses Diagnosis Alcoholism (CMS/HCC) Other and unspecified alcohol dependence, unspecified drinking behavior Essential (primary) hypertension Unspecified essential hypertension documented in this encounter Additional Health Concerns Assessment Noted Time PHQ-9 Depression Total Score: 4 03/06/20 24 2:22 PM EDT documented as of this encounter Care Teams Window Glazier Helper Relationship Specialty Start Date End Date Brittany Saldana MD [address] [place] [address] PCP - General Family Medicine 05/08/20 Darrin Hernandez FNP [address] [place] [address] Nurse Practitioner Family Medicine 10/19/23 documented as of this encounter
--- OUTSIDE RECORDS SUMMARY | 2025-01-03 13:17 | XMS_ITS | Encounter Summary ---
Author Organization [employer] Address [address] [place] [address] 7 [place] [address] Care Team Providers Care Exhibition Designer Name Role Phone Brittany Saldana MD Primary Care Provider + Darrin Hernandez Unavailable Unavailable Reason for Visit * Reason Onset Date Comments Durable Medical Equipment 01/05/2023 Encounter Details Date Type Department Care Team ([facility] st Contact Info) Description 01/05/2023 Telephone [facility] MEDICINE [address] [place] [address] Brittany Saldana MD [address] [place] [address] Durable Medical Equipment Social History Tobacco Use Types Packs/Day Years [...] suspected to have Coronavirus/COVID-19? No / Unsure 12/30/2022 11:17 AM EST documented as of this encounter Miscellaneous Notes * Telephone Encounter - Lisa Marco - 01/05/2023 12:50 PM EST New script for DM shoes generated for providers signature. Will contact POS and check if patient insurance is accepted there. * Telephone Encounter - Christos Barrera - 01/05/2023 12:12 PM EST Tc from pt requesting New script for Diabetic Shoes, pt claims that previous script that was sent pt insurance is not taken there. If any questions please contact pt at [phone] documented in this encounter Plan of Treatment Upcoming Encounters Date Type Department Care Team (Late st Contact Info) Description 01/30/2025 1:15 PM EDT Office Visit [facility] MEDICINE [address] [place] [address] Brandon Caballero MD [address] [place] [address] documented as of this encounter Visit Diagnoses Not on filedocumented in this encounter Additional Health Concerns Assessment Noted Time PHQ-9 Depression Total Score: 4 12/31/19 23 10:56 AM EST documented as of this encounter Care Teams Exhibition Designer Relationship Specialty Start Date End Date Brittany Saldana MD [address] [place] [address] PCP - General Family Medicine 05/08/20 Darrin Hernandez FNP [address] [place] [address] Nurse Practitioner Family Medicine 10/19/23 documented as of this encounter
--- OUTSIDE RECORDS SUMMARY | 2025-01-03 13:17 | XMS_ITS | Encounter Summary ---
Author Organization [employer] Address [address] [place] [address] 7 [place] [address] Care Team Providers Care Cloth Measurer Machine Name Role Phone Brittany Saldana MD Primary Care Provider + Darrin Hernandez Unavailable Unavailable Reason for Visit * Reason Onset Date Comments Med Refill 08/11/2024 Encounter Details Date Type Department Care Team (Late st Contact Info) Description 08/11/2024 Refill [facility] MEDICINE [address] [place] [address] Brittany Saldana MD [address] [place] [address] Mild intermittent asthma without complication Social History [...] Description 01/30/2025 1:15 PM EDT Office Visit [facility] MEDICINE [address] [place] [address] Brandon Caballero MD [address] [place] [address] documented as of this encounter Goals Goal [...] documented as of this encounter Care Teams Cloth Measurer Machine Relationship Specialty Start Date End Date Brittany Saldana MD [address] [place] [address] PCP - General Family Medicine 05/08/20 Darrin Hernandez FNP [address] [place] [address] Nurse Practitioner Family Medicine 10/19/23 documented as of this encounter
--- OUTSIDE RECORDS SUMMARY | 2025-01-03 13:17 | XMS_ITS | Encounter Summary ---
Author Organization [employer] Address 75 [facility] 7 [place] [address] Care Team Providers Care Figurine Maker Name Role Phone Brittany Saldana MD Primary Care Provider + Darrin Hernandez Unavailable Unavailable Reason for Visit * Reason Comments [facility] Recovery Supports Encounter Details Date Type Department Care Team (Late st Contact Info) Description 12/19/2024 Patient Outreach [facility] MEDICINE [address] [place] [address] Jose Chang [address] [place] [address] [facility] Recovery Supports Social History Tobacco Use Types [...] as of this encounter Progress Notes * Jose Chang - 12/19/2024 4:29 PM EST I met with Dane ruff. Setting: in person at [facility] Recovery Wellness Goals worked on: Social Stability Action taken/next steps: Attended recovery support group Additional comments: Participant attended a group session centered on recovery topics, where members engaged in open discussion and offered mutual support Jose Chang documented in this encounter Plan of Treatment Upcoming Encounters Date Type Department Care Team (Late st Contact Info) Description 01/30/2025 1:15 PM EDT Office Visit [facility] MEDICINE [address] [place] [address] Brandon Caballero MD [address] [place] [address] documented as of this encounter Goals Goal Patient Goal Type Associated Problems Recent Progress Patient-Stated? Author Blood Pressure < 140/90 Blood Pressure 160/80(2024 3:41 PM EST) No Venkatesh Skinner, PharmHillary Hemoglobin A1c < 7 Result Component 5.1( 11:19 AM EST) No Venkatesh Skinner, PharmD documented as of this encounter Visit Diagnoses Not on filedocumented in this encounter Additional Health Concerns Assessment Noted Time PHQ-9 Depression Total Score: 2 12/07/19 25 10:39 AM EST documented as of this encounter Care Teams Figurine Maker Relationship Specialty Start Date End Date Brittany Saldana MD [address] [place] [address] PCP - General Family Medicine 05/08/20 Darrin Hernandez FNP [address] [place] [address] Nurse Practitioner Family Medicine 10/19/23 documented as of this encounter
--- OUTSIDE RECORDS SUMMARY | 2025-01-03 13:17 | XMS_ITS | Encounter Summary ---
Author Organization [employer] Address 75 [facility] 7t [place] [address] Care Team Providers Care Exploration Geologist Name Role Phone Brittany Saldana MD Primary Care Provider + Darrin Hernandez Unavailable Unavailable Encounter Details Date Type Department Care Team (Latest Contact Info) Description 12/12/2024 Travel Social History Tobacco Use Types Packs/Day [...] Description 01/30/2025 1:15 PM EDT Office Visit [facility] MEDICINE [address] [place] [address] Brandon Caballero MD [address] [place] [address] documented as of this encounter Goals Goal [...] documented as of this encounter Care Teams Exploration Geologist Relationship Specialty Start Date End Date Brittayn Saldana MD [address] [place] [address] PCP - General Family Medicine 05/08/20 Darrin Hernandez FNP [address] [place] [address] Nurse Practitioner Family Medicine 10/19/23 documented as of this encounter
--- OUTSIDE RECORDS SUMMARY | 2025-01-03 13:17 | XMS_ITS | Encounter Summary ---
Author Organization [email or web address] Address 75 [facility] 7 [place] [address] Care Team Providers Care Hogshead Roller Name Role Phone Brittany Saldana MD Primary Care Provider + Darrin Hernandez Unavailable Unavailable Reason for Visit * Reason Onset Date Comments Med Refill 08/03/2024 Encounter Details Date Type Department Care Team (Late st Contact Info) Description 08/03/2024 Refill [facility] MEDICINE [address] [place] [address] [facility] [address] [place] [address] Mild intermittent asthma without complication Social History [...] Description 01/30/2025 1:15 PM EDT Office Visit [facility] MEDICINE [address] [place] [address] Brandon Caballero MD [address] [place] [address] documented as of this encounter Goals Goal [...] documented as of this encounter Care Teams Hogshead Roller Relationship Specialty Start Date End Date Brittany Saldana MD [address] [place] [address] PCP - General Family Medicine 05/08/20 Darrin Hernandez FNP [address] [place] [address] Nurse Practitioner Family Medicine 10/19/23 documented as of this encounter
--- OUTSIDE RECORDS SUMMARY | 2025-01-03 13:17 | XMS_ITS | Encounter Summary ---
Author Organization [employer] Address [address] [place] [address] 7 [place] [address] Care Team Providers Care Speech And Language Clinician Name Role Phone Brittany Saldana MD Primary Care Provider + Darrin Hernandez Unavailable Unavailable Reason for Visit * Reason Onset Date Comments Med Refill 06/15/2024 Encounter Details Date Type Department Care Team (Late st Contact Info) Description 06/15/2024 Refill [facility] MEDICINE [address] [place] [address] Brittany Saldana MD [address] [place] [address] Acute insomnia Social History Tobacco Use Types Packs/Day Years [...] Description 01/30/2025 1:15 PM EDT Office Visit [facility] MEDICINE [address] [place] [address] Brandon Caballero MD [address] [place] [address] documented as of this encounter Goals Goal Patient Goal Type Associated Problems Recent Progress Patient-Stated? Author Blood Pressure < 140/90 Blood Pressure 160/80(2024 3:41 PM EST) No Venkatesh Skinner PharmD Hemoglobin A1c < 7 Result Component 5.1( 11:19 AM EST) No Venkatesh Skinner PharmD documented as of this encounter Visit Diagnoses Diagnosis Acute insomnia documented in this encounter Additional Health Concerns Assessment Noted Time PHQ-9 Depression Total Score: 4 03/06/20 24 2:22 PM EDT documented as of this encounter Care Teams Speech And Language Clinician Relationship Specialty Start Date End Date Brittany Saldana MD [address] [place] [address] PCP - General Family Medicine 6/24/20 Darrin Hernandez FNP [address] [place] [address] Nurse Practitioner Family Medicine 10/19/23 documented as of this encounter
--- OUTSIDE RECORDS SUMMARY | 2025-01-03 13:17 | XMS_ITS | Encounter Summary ---
Author Organization [employer] Address 75 [facility] 7 [place] [address] Care Team Providers Care Time Broker Name Role Phone Brittany Saldana MD Primary Care Provider + Darrin Hernandez Unavailable Unavailable Encounter Details Date Type Department Care Team (Late st Contact Info) Description 10/10/2024 Abstract [facility] MEDICINE [address] [place] [address] Brittany Saldana MD [address] [place] [address] Social History Tobacco Use Types Packs/Day Years [...] Description 01/30/2025 1:15 PM EDT Office Visit [facility] MEDICINE [address] [place] [address] Brandon Caballero MD [address] [place] [address] documented as of this encounter Goals Goal Patient Goal Type Associated Problems Recent Progress Patient-Stated? Author Blood Pressure < 140/90 Blood Pressure 160/80(2024 3:41 PM EST) No Venkatesh Skinner, PharmD Hemoglobin A1c < 7 Result Component 5.1( 11:19 AM EST) No Venkatesh Skinner, PharmD documented as of this encounter Visit Diagnoses Not on filedocumented in this encounter Additional Health Concerns Assessment Noted Time PHQ-9 Depression Total Score: 4 03/06/20 24 2:22 PM EDT documented as of this encounter Care Teams Time Broker Relationship Specialty Start Date End Date Brittany Saldana MD [address] [place] [address] PCP - General Family Medicine 05/08/20 Darrin Hernandez FNP [address] [place] [address] Nurse Practitioner Family Medicine 10/19/23 documented as of this encounter
--- OUTSIDE RECORDS SUMMARY | 2025-01-03 13:17 | XMS_ITS | Encounter Summary ---
Author Organization [employer] Address [address] [facility] 7 [place] [address] Care Team Providers Care Administration Professional Name Role Phone Brittany Saldana MD Primary Care Provider + Darrin Hernandez Unavailable Unavailable Reason for Visit * Reason Comments Med Refill Encounter Details Date Type Department Care Team (Late st Contact Info) Description 07/25/2024 Refill [facility] [address] [place] [address] Brandon Caballero MD [address] [place] [address] Type 2 diabetes mellitus without complication, without long-term current use of insulin ([facility]) Social History Tobacco Use Types [...] the past 12 months, has t he [employer], gas, oil or water company threatened to [...] Description 01/30/2025 1:15 PM EDT Office Visit [facility] [address] [place] [phone] Brandon Caballero MD [address] [place] [address] documented as of this encounter Goals Goal [...] complication, without long-term current use of insulin ([facility]) documented in this encounter Additional Health Concerns Assessment Noted Time PHQ-9 Depression Total Score: 4 03/06/20 24 2:22 PM EDT documented as of this encounter Care Teams Administration Professional Relationship Specialty Start Date End Date Brittany Saldana MD [address] [place] [address] PCP - General Family Medicine 05/08/20 Darrin Hernandez FNP [address] [place] [address] Nurse Practitioner Family Medicine 10/19/23 documented as of this encounter
--- OUTSIDE RECORDS SUMMARY | 2025-01-03 13:17 | XMS_ITS | Encounter Summary ---
Author Organization [employer] Address [address] [place] [address] 7 [place] [address] Care Team Providers Care Windows Systems Engineer Name Role Phone Brittany Saldana MD Primary Care Provider + Drarin Hernandez Unavailable Unavailable Reason for Visit * Reason Onset Date Comments r/s appt 12/24/2022 Encounter Details Date Type Department Care Team (Late st Contact Info) Description 12/24/2022 Telephone [facility] [address] [place] [address] Brittany Saldana MD [address] [place] [address] r/s appt Social History Tobacco Use Types Packs/Day Years [...] suspected to have Coronavirus/COVID-19? No / Unsure 12/02/2022 11:15 AM EST documented as of this encounter Miscellaneous Notes * Telephone Encounter - Christos Barrera - 12/24/2022 9:54 AM EST Tc from pt requesting to r/s PE appt for 12/24/2022 at 9:45 am. Pt states his ride was not there ontime. Extension Service Supervisor tried booking but December [employer] was full. Please contact pt at [phone] documented in this encounter Plan of Treatment Upcoming Encounters Date Type Department Care Team (Late st Contact Info) Description 01/30/2025 1:15 PM EDT Office Visit [facility] [address] [place] [phone] Brandon Caballero MD [address] [place] [phone] documented as of this encounter Visit Diagnoses Not on filedocumented in this encounter Additional Health Concerns Assessment Noted Time PHQ-9 Depression Total Score: 9 11/05/20 22 9:37 AM EST documented as of this encounter Care Teams Windows Systems Engineer Relationship Specialty Start Date End Date Brittany Saldana MD [address] [place] [phone] PCP - General Family Medicine 05/08/20 Darrin Hernandez FNP [address] [place] [phone] Nurse Practitioner Family Medicine 10/19/23 documented as of this encounter
--- OUTSIDE RECORDS SUMMARY | 2025-01-03 13:17 | XMS_ITS | Encounter Summary ---
Author Organization [employer] Address [address] [place] [address] 7 [place] [address] Care Team Providers Care Curing Oven Tender Name Role Phone Brittany Saldana MD Primary Care Provider + Darrin Hernandez Unavailable Unavailable Reason for Visit * Reason Onset Date Comments Appointment 09/10/2023 Encounter Details Date Type Department Care Team (Late st Contact Info) Description 09/10/2023 Telephone [facility] [address] [place] [address] Usha, Conchita [address] [place] [address] Appointment Social History Tobacco Use Types Packs/Day Years Used Date Smoking Tobacco: Never Smokeless Tobacco: Never Alcohol Use Standard Drinks/Week Comments Not Currently 0 (1 standard drink = 0.6 oz pur e alcohol) Depression Answer Date Recorded Patient Health Questionnaire-9 Score 4 09/06/2023 Patient Health Questionnaire-9 Score 4 09/06/2023 Last PHQ-9: Questionnaire Data Not on file 1 Housing Stability Answer Date Recorded What is your housing situation today? I have best howard 08/30/[address] you li ve. Do you have problems with any of the following? None of the above 08/30/2023 Food Insecurity Answer Date Recorded Within the past 12 months, y ou worried that your food would run out before you got money to buy more: Never True 08/30/2023 Within the past 12 months,th e food you bought just didn't last and you didn't have enough money to get more: Never True Transportation Answer Date Recorded In the past 12 months, has l ack of transportation kept you from medical appts, meetings, work or from getting things needed for daily living? Yes, it has kept me from medical appointments or getting medications. 08/24/2023 Utilities Answer Date Recorded In the past 12 months, has t he electric, gas, oil or water company threatened to shut off services in your home? No 08/30/2023 Depression Answer Date Recorded Patient Health Questionnaire-2 Score 2 09/06/2023 Sex and Gender Information Value Date Recorded Sex Assigned at Male 09/14/2022 10:36 AM EDT Legal Sex Male 10:36 AM EDT Gender Identity Male 09/14/2022 10:36 AM EDT Sexual Orientation Choose not to disclose 2021 10:36 AM EDT documented as of this encounter Miscellaneous Notes * Telephone Encounter - Gemma Woods - 09/10/2023 3:57 PM EDT Patient called in stating that he is waiting for a cleaning appt. Last appt he had in [place] was deep leaning in September and the appt slip scanned was for an extraction. He is convinced that he came for the extraction after that date. Unless I'm missing something, I don't see that. He would like to get his cleaning appt as he thought he would get an automatic call back DR documented in this encounter Plan of Treatment Upcoming Encounters Date Type Department Care Team (Late st Contact Info) Description 01/30/2025 1:15 PM EDT Office Visit [facility] [address] [place] [address] Brandon Caballero MD [address] [place] [address] documented as of this encounter Visit Diagnoses Not on filedocumented in this encounter Additional Health Concerns Assessment Noted Time PHQ-9 Depression Total Score: 4 09/06/20 23 11:30 AM EDT documented as of this encounter Care Teams Curing Oven Tender Relationship Specialty Start Date End Date Brittany Saldana MD [address] [place] [address] PCP - General Family Medicine 05/08/20 Darrin Hernandez FNP [address] [place] [address] Nurse Practitioner Family Medicine 10/19/23 documented as of this encounter
--- OUTSIDE RECORDS SUMMARY | 2025-01-03 13:17 | XMS_ITS | Encounter Summary ---
Author Organization [employer] Address [address] [place] [address] 7 [place] [address] Care Team Providers Care Logging Equipment Mechanic Name Role Phone Brittany Saldana MD Primary Care Provider + Darrin Hernandez Unavailable Unavailable Reason for Visit * Reason Onset Date Comments Med Refill 05/20/2024 Encounter Details Date Type Department Care Team (Late st Contact Info) Description 05/20/[address] [facility] [address] [place] [address] Darrin Hernandez FNP Social History Tobacco Use Types Packs/Day Years [...] Visit [facility] [address] [place] [phone] Brandon Caballero MD [address] [place] [address] documented as of this encounter Goals Goal [...] documented as of this encounter Care Teams Logging Equipment Mechanic Relationship Specialty Start Date End Date Brittany Saldana MD [address] [place] [address] PCP - General Family Medicine 05/08/20 Darrin Hernandez FNP [address] [place] [address] Nurse Practitioner Family Medicine 10/19/23 documented as of this encounter
--- OUTSIDE RECORDS SUMMARY | 2025-01-03 13:17 | XMS_ITS | Patient Health Record ---
Author Organization [employer] Address [address] [facility] [address] [place] [address] Support Name Relationship Address Phone Dane Calles Guarantor Unknown [phone] Allergies Allergen (clinical drug ingredient) Drug/Non Drug [...] Disorder due to type 2 diabetes mellitus (288271611) Type 2 diabetes mellitus with unspecified complications (E11.8) Active confirmed Problem Morbid obesity (disorder) (583969970) Morbid (severe) obesity due to excess calories (E66.01) Active confirmed Problem Mixed hyperlipidemia (057752114) Mixed hyperlipidemia (E78.2) Active confirmed Problem Alcohol dependence (46076666) Alcohol dependence, uncomplicated (F10.20) Active confirmed Problem Mild recurrent major depression (41073149) Major depressive disorder, recurrent, mild (F33.0) Active confirmed Problem 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, intractable, 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) Active confirmed Problem 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, intractable, without status epilepticus (G40.219) Active confirmed Problem Obstructive sleep apnea syndrome (disorder) (31547710) Obstructive sleep apnea (adult) (pediatric) (G47.33) Active confirmed Problem Essential hypertension (37990359) Essential (primary) hypertension (I10) Active confirmed Problem Gastro-esophageal reflux disease without esophagitis (904909699) Gastro-esophageal reflux disease without esophagitis (K21.9) Active confirmed Problem Neurofibromatosis (01818473) Neurofibromatosis , 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) Active confirmed Problem Somnolence (12069593) Somnolence (R40.0) Active confirmed Problem Attention and concentration deficit (R41.840) Active confirmed Problem Body mass index 40+ - severely obese (395768315) Body mass index (BMI) 40.0-44.9, adult (Z68.41) Active confirmed Problem Lower urinary tract symptoms due to benign prostatic hypertrophy (83213934039609) Benign prostatic hyperplasia with lower urinary tract symptoms (N40.1) Active confirmed Problem Morbid obesity (340346427) Morbid obesity (E66.01) Active confirmed Plan Of Treatment No Information Medical (General) History Medical History History ICD Code hypertension, benign acid reflux BPH see Urology Attention deficit disorder Neurofibromatosis complex partial seizure disorder Surgical History Surgery Date(Month/Year) Umblical hernia repair 2004 Tonsellectomy Cyst in throat removed
--- OUTSIDE RECORDS SUMMARY | 2025-01-03 13:17 | XMS_ITS | Encounter Summary ---
Author Organization [employer] Address [address] [place] [address] 7 [place] [address] Care Team Providers Care Care Professional Name Role Phone Brittany Saldana MD Primary Care Provider + Darrin Hernandez Unavailable Unavailable Reason for Referral * Consultation (Routine) - Pending Review Specialty Diagnoses / Procedures Referred By Conttatyana t Referred To Contact Ophthalmology Diagnoses Combined forms of age-related cataract of both eyes Anatomical narrow angle of both eyes Anthony Minor, OD [address] [place] [address] Phone: tel: fax: Fernando Leavitt MD [address] [place] [address] Phone: tel: fax: Referral ID Status Reason Start Date Expiration Date Visits Requested Visits Authorized [id number] Pending Review Specialty Services Required 12/28/2024 12/28/2025 1 1 Reason for Visit * Reason Comments Diabetic Eye Exam Encounter Details Date Type Department Care Team (Latest Contact Info) Description 04/06/2024 10:00 AM EDT Office Visit [facility] OPTOMETRY [address] [place] [address] Anthony Minor, OD [address] [place] [address] Type 2 diabetes mellitus without ophthalmic manifestations (CMS/HCC) (Primary Dx); Combined forms of age-related cataract of both eyes; Retinal tear of right eye; Vitreoretinal tuft of left eye; History of neurofibromatosis (CMS/HCC); Anatomical narrow angle of both eyes; Astigmatism of both eyes, unspecified type; Presbyopia Social History Tobacco Use Types Packs/Day Years [...] as of this encounter Progress Notes * Anthony Minor, OD - 04/06/2024 10:00 AM EDT Eye Care Progress Note Patient ID: Narendra Calles is a 69 y.o. male. Chief Complaint Diabetic Eye Exam HPI 69 yo male presents for annual diabetic exam and cataract follow up. Last eye exam was one year agoand he had cataracts. He reports that he feels his near vision is worse and sometimes feels like heis seeing through a cloud. He also has history of retinal tear right eye (OD) and vitreoretinal tuft left eye (OS) but denies any new flashes or floaters. He has a history of Type 2 diabetes with last self-reported A1c 5.8. He has lost a great deal of weight both prior to and after bariatric surgery performed several weeks ago and states that he is now considered prediabetic. He also reports improved control of his blood pressure on reduced meds. He denies all other ocular complaints. Last edited by Anthony Minor, OD on 04/06/2024 11:02 AM. Current Outpatient Medications Medication Sig Dispense Refill albuterol (Ventolin HFA) 108 (90 Base) MCG/ACT inhaler INHALE 2 PUFFS EVERY 4 TO 6 HOURS NEEDED 18 g 1 ARIPiprazole (Abilify) 2 MG tablet Take 1 tablet (2 mg) by mouth Once per day. 90 tablet 3 atorvastatin (Lipitor) 20 MG tablet TAKE 1 TABLET BY MOUTH AT BEDTIME (for cholesterol) 90 tablet 2 buPROPion XL (Wellbutrin XL) 300 MG 24 hr tablet Take 1 tablet (300 mg) by mouth in the morning. 90tablet 3 cloNIDine (Catapres) 0.1 MG tablet Take 1 tablet (0.1 mg) by mouth at bedtime. 90 tablet 3 cyanocobalamin (Vitamin B-12) 1000 MCG tablet TAKE 1 TABLET BY MOUTH EVERY MORNING 30 tablet 11 docusate sodium (Colace) 100 MG capsule TAKE 1 CAPSULE BY MOUTH TWICE DAILY NEEDED 180 capsule 2 finasteride (Proscar) 5 MG tablet TAKE 1 TABLET BY MOUTH ONCE DAILY fluticasone (Flonase) 50 MCG/ACT nasal spray USE 1-2 SPRAYS IN EACH NOSTRIL ONCE DAILY NEEDED 16g 3 folic acid (Folvite) 1 MG tablet TAKE 1 TABLET BY MOUTH EVERY MORNING ( VITAMIN) 90 tablet 2 gabapentin (Neurontin) 300 MG capsule Take 1 capsule (300 mg) by mouth at bedtime. 30 capsule 5 glucose blood (FREESTYLE LITE) test strip Use 1 by To Skin route every day 100 each 11 glucose blood (OneTouch Ultra) test strip Test blood sugar twice a day 100 each 11 influenza vac subunit quadrivalent (Flucelvax Quadrivalent) 0.5 ML injection ADM 0.5ML IM UTD Lancets 28G [facility] Use 1 lancet to monitor blood glucose twice daily 100 each 11 lisinopril (Prinivil) 10 MG tablet Take 1 tablet (10 mg) by mouth in the morning. 30 tablet 11 meclizine (Antivert) 25 MG tablet TAKE 1 TABLET BY MOUTH THREE TIMES DAILY IN THE MORNING, AT NOON,AND AT BEDTIME NEEDED FOR DIZZINESS 90 tablet 0 melatonin 5 MG tablet Take 1 tablet (5 mg) by mouth at bedtime. 90 tablet 1 Methylphenidate HCl (methylphenidate ER) 36 MG 24 hr tablet TAKE 1 TABLET BY MOUTH EVERY MORNING. DO NOT CRUSH, CHEW OR SPLIT. 60 tablet 0 Multiple Vitamins-Minerals (CertaVite Senior/Antioxidant) tablet TAKE 1 TABLET BY MOUTH EVERY MORNING 90 tablet 2 naloxone (Narcan) 4 mg/0.1 mL nasal spray Administer 1 spray (4 mg) into affected nostril(s) if needed for opioid reversal. May repeat every 2-3 minutes if needed, alternating nostrils, until medicalassistance becomes available. 1 each 5 naltrexone (Depade) 50 MG tablet Take 1 tablet (50 mg) by mouth in the morning. May take with food.30 tablet 3 Narcan 4 MG/0.1ML nasal spray FOR SUSPECTED OPIOID OVERDOSE. SPRAY 0.1mL IN ONE NOSTRIL. REPEAT IN ALTERNATE NOSTRIL 2-3 MINUTES IF NEEDED. SEEK MEDICAL ATTENTION IMMEDIATELY EVEN IF PATIENT RESPONDS. omeprazole (PriLOSEC) [address] capsule TAKE 1 CAPSULE BY MOUTH EVERY MORNING 90 capsule 2 tamsulosin (Flomax) 0.4 MG 24 hr capsule take 1 capsule by oral route every day 1/2 hour following the same meal each day terazosin (Hytrin) 5 MG capsule TAKE 1 CAPSULE BY MOUTH AT BEDTIME thiamine (Vitamin B-1) 100 MG tablet 1 tab po/d 30 tablet 11 traZODone (Desyrel) 100 MG tablet Take 2 tablets (200 mg) by mouth at bedtime. 180 tablet 1 No current facility-administered medications for this visit. Past Medical History: Diagnosis Date Cataract Diabetes mellitus ([facility]) High blood pressure Retinal tear of right eye Past Surgical History: Procedure Laterality Date LAPAROSCOPIC PARTIAL GASTRECTOMY 03/17/2024 Sleeve gastrectomy (Dr. Salgado) No family history on file. Social History Socioeconomic History Marital status: Spouse name: Not on file Number of children: Not on file Years of education: Not on file Highest education level: Not on file Occupational History Not on file Tobacco Use Smoking status: Never Smokeless tobacco: Never Substance and Sexual Activity Alcohol use: Not Currently Drug use: Not Currently Sexual activity: Not on file Other Topics Concern Not on file Social History Narrative Not on file Social Determinants of Health Food Insecurity: Low Risk (02/29/2024) Food Insecurity Within the past 12 months, you worried that your food would run out before you got money to buy more:: Never True Within the past 12 months,the food you bought just didn't last and you didn't have enough money to get more: : Never True Transportation Needs: Low Risk (02/29/2024) Transportation In the past 12 months, has lack of transportation kept you from medical appts, meetings, work or from getting things needed for daily living? : No Intimate Partner Violence: Not on file Housing Stability: Low Risk (02/29/2024) Housing Stability What is your housing situation today?: I have housing Think about the place you live. Do you have problems with any of the following? : None of the above Allergies Allergen Reactions Penicillin G Anaphylaxis Penicillins Shortness of breath and Rash ROS Positive for: Gastrointestinal, Skin (neurofibromatosis), Endocrine (Type 2 diabetes), Cardiovascular (Hypertension, vascular insufficiency), Eyes (retinal tear OD, cataracts), Psychiatric (depression, ADHD), Allergic/Imm (seasonal, pcn) Negative for: Constitutional, Neurological, Genitourinary, Musculoskeletal, HENT, Respiratory, Heme/Lymph Last edited by Anthony Minor, OD on 04/06/2024 10:19 AM. Base Eye Exam Visual Acuity (Snellen - Linear) Right Left Dist cc 20/40 20/60 Near cc 20/30 20/40 Correction: Glasses Tonometry ([facility] , 10:46 AM) Right Left Pressure 12 11 Gonioscopy (4 mirror) Right Left Temporal SS SS, iris processes Nasal PTM PTM Superior PTM PTM Inferior CBB CBB Pupils Pupils APD Right PERRL None Left PERRL None Visual Jones (Counting fingers) Left Right Full Full Extraocular Movement Right Left Full, Ortho Full, Ortho Neuro/Psych Oriented x3: Yes Mood/Affect: Normal Dilation Both eyes: 1.0% Mydriacyl @ 10:46 AM Slit Lamp and Fundus Exam External Exam Right Left External Head, face, body nodules Head, face, body nodules Slit Lamp Exam Right Left Lids/Lashes nodule upper lid, telangectasia telangiectasia Conjunctiva/Sclera 2+ Injection 2+ Injection Cornea Clear, minimal tear film Clear, minimal tear film Anterior Chamber Narrow angle Narrow angle Iris No NVI No NVI Lens 1+PCC, 2+NSC, 1+PSC 1+PCC, 2+NSC, 1+ PSC Fundus Exam Right Left Vitreous Posterior vitreous detachment, marked floaters Posterior vitreous detachment, syneresis Disc No neovascularization of the disc (NVD), flat malinserted disc with atypical vessel insertion,difficult to assess cupping No neovascularization of the disc (NVD), flat malinserted disc with atypical vessel insertion, difficult to assess cupping C/D Ratio 0.35 0.3 Macula No CSME No CSME Vessels No NVE No NVE Periphery Retinal hole inferior midperiphery at 5 oclock surrounded by retinal scar post laser tx, superior Temporal pigment demarcation line, retina flat pigmented vitreoretinal tuft superior nasal anterior to equator at 10 oclock, retina flat and intact 360 Refraction Wearing Rx Sphere Cylinder [place] Add Right -0.75 -0.50 090 +2.50 Left -0.25 -0.50 180 +2.50 Type: PAL Manifest Refraction (Subjective) Sphere Cylinder [place] Dist VA Add Near VA Right -0.75 -0.50 095 20/30 +3.00 20/25 Left +0.25 -0.25 170 20/40 +3.00 20/25 Final Rx Sphere Cylinder [place] Dist VA Add Near VA Right -0.75 -0.50 095 20/30 +3.00 20/25 Left +0.25 -0.25 170 20/40 +3.00 20/25 Expiration Date: 04/06/2025 Comments: Opposite signs correct Opposite axes correct Assessment/Plan Diagnoses and all orders for this visit: Type 2 diabetes mellitus without ophthalmic manifestations (CMS/HCC) Type 2 diabetes which is well controlled without diabetic retinopathy or diabetic macular edema. Patient education regarding importance of annual eye exam as well as maintaining good control of bloodglucose and other co- morbidities. Recommend follow up with PCP as indicated. Monitor at annual eye e xamination or sooner if any changes in vision occur. 2. Combined forms of age-related cataract of both eyes Cortical and Nuclear cataract with early posterior subcapsular cataract (PSC) both eyes (OU) which are mildly visually significant. Patient education regarding slow progression of cataract and no improvement in vision if left untreated. Discussed referral to ophthalmology for cataract consultation.Patient prefers to defer at this time. Monitor at annual eye exam or prn. NOTE: At patient's request initiated referral to Eye[facility]Lasik on 12/28/2024. 3. Retinal tear of right eye History of retinal tear right eye (OD) post repair. Stable with intact retina today. Patient education regarding symptoms of retinal detachment and importance of regular and timely retinal evaluation. Monitor at annual exam or sooner if symptoms of flashes, floaters or decreased vision occur. 4. 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 See plan 3. 5. History of neurofibromatosis ([facility]) Cutaneous lesions without ocular involvement in a patient with history of NF. Stable and longstanding. Continue to monitor at annual exam. 6.Anatomical narrow angle of both eyes Narrow anatomical angles both eyes (OU) which are open on gonioscopy in a patient with normal intraocular pressure (IOP) and who has bilateral cataracts. Patient education regarding findings and importance of regular evaluation as well as treatment options if indicated. Monitor at annual exam or sooner if any pain, decreased vision occur. 7. Astigmatism of both eyes, unspecified type Mild Astigmatism in a patient with complaint of blurred vision. Patient education regarding relatively stable refraction and potential adaptation to spectacle correction. Updated Spectacle Rx issued.Monitor at comprehensive eye examination. 8. Presbyopia Presbyopia in a patient with complaint of blurred near vision. Patient education regarding progression of presbyopia and increased near Rx. Updated Rx given for bifocals. Anthony Minor, OD 04/06/2024, 11:45 AM documented in this encounter Miscellaneous Notes * Addendum Note - Anthony Minor, OD - 04/06/2024 10:00 AM EDTAddended by: ANTHONY MINOR on: 12/28/2024 03:30 PM Modules accepted: Orders documented in this encounter Plan of Treatment Upcoming Encounters Date Type Department Care Team (Late st Contact Info) Description 01/30/2025 1:15 PM EDT Office Visit [facility] MEDICINE [address] [place] [address] [phone] Brandon Caballero MD [address] [place], [place] [phone] Scheduled Referrals Name Type Priority Associated Diagnoses Order Schedule Referral to Ophthalmology Outpatient Referral Routine Combined forms of age-related cataract of both 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 Author Blood Pressure < 140/90 Blood Pressure 160/80(2024 3:41 PM EST) No Venkatesh Skinner PharmD Hemoglobin A1c < 7 Result Component 5.1( 11:19 AM EST) No Venkatesh Skinner PharmD documented as of this encounter Visit Diagnoses Diagnosis Type 2 diabetes mellitus without ophthalmic manifestations (CMS/HCC)- Primary Combined forms of age-related cataract of both eyes Retinal tear of right eye Vitreoretinal tuft of left eye History of neurofibromatosis (CMS/HCC) Anatomical narrow angle of both eyes Astigmatism of both eyes, unspecified type Presbyopia documented in this encounter Additional Health Concerns Assessment Noted Time PHQ-9 Depression Total Score: 4 03/06/20 24 2:22 PM EDT documented as of this encounter Care Teams Care Professional Relationship Specialty Start Date End Date Brittany Saldana MD [address] [place] [address] [phone] PCP - General Family Medicine 05/08/20 Darrin Hernandez FNP [address] [place] [phone] Nurse Practitioner Family Medicine 10/19/23 documented as of this encounter
--- OUTSIDE RECORDS SUMMARY | 2025-01-03 13:17 | XMS_ITS | Encounter Summary ---
Author Organization [employer] Address [address] [place] [address] 7 [place] [address] Care Team Providers Care License Clerk Name Role Phone Brittany Saldana MD Primary Care Provider + Darrin Hernandez Unavailable Unavailable Reason for Visit * Reason Onset Date Comments Med Refill 07/23/2024 Encounter Details Date Type Department Care Team (Late st Contact Info) Description 07/23/2024 Refill [facility] MEDICINE [address] [place] [address] [facility] [address] [place] [address] Depression, unspecified depression type Social History Tobacco [...] Description 01/30/2025 1:15 PM EDT Office Visit [facility] MEDICINE [address] [place] [phone] Brandon Caballero MD [address] [place] [phone] documented as of this encounter Goals Goal [...] documented as of this encounter Care Teams License Clerk Relationship Specialty Start Date End Date Brittany Saldana MD [address] [place] [phone] PCP - General Family Medicine 05/08/20 Darrin Hernandez FNP [address] [place] [address] Nurse Practitioner Family Medicine 10/19/23 documented as of this encounter
--- OUTSIDE RECORDS SUMMARY | 2025-01-03 13:17 | XMS_ITS | Encounter Summary ---
Author Organization [employer] Address [address] [facility] [address] [place] [address] Care Team Providers Care Estate Planning Counselor Name Role Phone Brittany Saldana MD Primary Care Provider + Darrin Hernandez Unavailable Unavailable Encounter Details Date Type Department Care Team (Latest Contact Info) Description 12/21/2024 Travel Social History Tobacco Use Types Packs/Day [...] Description 01/30/2025 1:15 PM EDT Office Visit [facility] MEDICINE [address] [place] [address] Brandon Caballero MD [address] [place] [address] documented as of this encounter Goals Goal [...] documented as of this encounter Care Teams Estate Planning Counselor Relationship Specialty Start Date End Date Brittany Saldana MD [address] [place] [phone] PCP - General Family Medicine 05/08/20 Darrin Hernandez FNP [address] [place] [phone] Nurse Practitioner Family Medicine 10/19/23 documented as of this encounter
--- OUTSIDE RECORDS SUMMARY | 2025-01-03 13:17 | XMS_ITS | Encounter Summary ---
Author Organization [employer] Address [address] [facility] [address] [place] [address] Care Team Providers Care Fly Maker Name Role Phone Brittany Saldana MD Primary Care Provider + Darrin Hernandez Unavailable Unavailable Encounter Details Date Type Department Care Team (Late st Contact Info) Description 12/19/2024 1:15 PM EST Office Visit [facility] MEDICINE [address] [place] [address] Brandon Caballero MD [address] [place] [address] Alcohol use disorder, severe, in sustained remission [...] the past 12 months, has t he [employer], gas, oil or water company threatened to [...] as of this encounter Progress Notes * Brandon Caballero MD - 12/19/2024 1:15 PM EST Patient ID: Narendra Calles is a 69 y.o. male who presents for AUD 11/22/24 Doing well. Recovery-2 years and 313 days. Nothing special during the holidays. Continues [employer], usually 5 days a week. He should be starting the [employer] in December or January. Will look for an [place] course. Needs to know [place] before he can proceed with [employer]. Has been procrastinating completing what he needs to before starting [employer]. Feels that divorce would be financially difficult for his and son so not pursuing at this time. Glad that the recovery support group is restarting after being canceled two weeks in a row due to the holidays. Also, will attend some [employer]. His weight is down to 140.4 #s, essentially his goal. ------- As above. Recovery intact. Congratulated for this and for planning to enroll in the [employer]. Attended today's recovery support group. Review visit frequency on f/u. F/U 4 weeks. Today 12/19/24 Reports doing well. Today is 2 years 341 days of his recovery! Only notices some thoughts of drinking when he sees someone on TV someone drinking or an advertisement for alcohol. However, no intention of drinking. Buys a lottery ticket in a liquor store. Does not trigger him. No cigarettes or alcohol use. Continues to go to [employer] 12/13/24 Continues to attend the recovery support group. Still need to join a gym and learn [email or web address]. Hoping to start the [employer] in January. Things not much change at home. His son who was incarcerated and now in a group home house will becoming home at some point. Narendra anderson won't change family dynamics. Objective Physical Exam Constitutional: Appearance: Normal appearance. Comments: Neurofibromatosis Neurological: Mental Status: He is alert and oriented to person, place, and time. Psychiatric: Mood and Affect: Mood normal. Behavior: Behavior normal. Thought Content: Thought content normal. Assessment/Plan Alcohol use disorder, severe, in sustained remission (CMS/HCC) Reports doing well. Today is 2 years 341 days of his recovery! Only notices some thoughts of drinking when he sees someone on TV someone drinking or an advertisement for alcohol. However, no intention of drinking. Buys a lottery ticket in a liquor store. Does not trigger him. Continues to go to [employer] 12/13/24 No cigarettes or alcohol use. Continues to attend the recovery support group. Still need to join a gym and learn [email or web address]. Hoping to start the [employer] in January. Family dynamics unchanged. His son who was incarcerated and now in a group home house will becoming home at some point. Narendra anderson won't change family dynamics. As above. Recovery intact and active in same. F/U 6 weeks instead of 4 weeks. Will offer q 8 week visits in the near future. Diagnoses and all orders for this visit: Alcohol use disorder, severe, in sustained remission ([facility]) This information has been disclosed to you from records protected by federal confidentiality rules(42 CFR Part 2). The federal rules prohibit you from making any further disclosure of information in this record that identifies a patient as having or having had a substance use disorder either directly, by reference to publicly available information, or through verification of such identificationby another person unless further disclosure is expressly permitted by the written consent of the individual whose information is being disclosed or as otherwise permitted by (see 2.3.1). The federal rules restrict any use of the information to investigate or prosecute with regard to a crime any patient with a substance use disorder, except as provided at 2.12??(5) and 2.65. documented in this encounter Plan of Treatment Upcoming Encounters Date Type Department Care Team (Late st Contact Info) Description 01/30/2025 1:15 PM EDT Office Visit [facility] MEDICINE [address] [place] [address] Brandon Caballero MD [address] [place] [address] documented as of this encounter Goals Goal Patient Goal Type Associated Problems Recent Progress Patient-Stated? Author Blood Pressure < 140/90 Blood Pressure 160/80(2024 3:41 PM EST) No Venkatesh Skinner, PharmHillary Hemoglobin A1c < 7 Result Component 5.1( 11:19 AM EST) Venkatesh Mccann, [place] documented as of this encounter Visit Diagnoses Diagnosis Alcohol use disorder, severe, in sustained remission (CMS/HCC)- Primary documented in this encounter Additional Health Concerns Assessment Noted Time PHQ-9 Depression Total Score: 2 12/07/19 25 10:39 AM EST documented as of this encounter Care Teams Fly Maker Relationship Specialty Start Date End Date Brittany Saldana MD [address] [place] [phone] PCP - General Family Medicine 05/08/20 Darrin Hernandez FNP [address] [place] [phone] Nurse Practitioner Family Medicine 10/19/23 documented as of this encounter
--- OUTSIDE RECORDS SUMMARY | 2025-01-03 13:17 | XMS_ITS | Encounter Summary ---
Author Organization [employer] Address [address] [place] [address] 7 [place] [address] Care Team Providers Care Grease Buffer Name Role Phone Brittany Saldana MD Primary Care Provider + Darrin Hernandez Unavailable Unavailable Reason for Visit * Reason Onset Date Comments Durable Medical Equipment 02/15/2023 Encounter Details Date Type Department Care Team ([facility] st Contact Info) Description 02/15/2023 Telephone [facility] [address] [place] [address] Brittany Saldana MD [address] [place] [address] Durable Medical Equipment Social History Tobacco Use [...] suspected to have Coronavirus/COVID-19? No / Unsure 02/18/2023 3:13 PM EDT documented as of this encounter Miscellaneous Notes * Telephone Encounter - Lisa Lara - 02/15/2023 11:55 AM EDT Order sent to POS * Telephone Encounter - Baldomero Dale - 02/15/2023 11:14 AM EDT Tc from pt requesting to have script for compression stockings and the diabetic shoes [facility] documented in this encounter Plan of Treatment Upcoming Encounters Date Type Department Care Team (Late st Contact Info) Description 01/30/2025 1:15 PM EDT Office Visit [facility] [address] [place] [address] Brandon Caballero MD [address] [place] [address] documented as of this encounter Visit Diagnoses Not on filedocumented in this encounter Additional Health Concerns Assessment Noted Time PHQ-9 Depression Total Score: 10 023 10:47 AM EDT documented as of this encounter Care Teams Grease Buffer Relationship Specialty Start Date End Date Brittany Saldana MD [address] [place] [id number] PCP - General Family Medicine 05/08/20 Darrin Hernandez FNP [address] [place] [id number] Nurse Practitioner Family Medicine 10/19/23 documented as of this encounter
--- OUTSIDE RECORDS SUMMARY | 2025-01-03 13:17 | XMS_ITS | Encounter Summary ---
Author Organization [employer] Address [address] [place] [address] 7 [place] [address] Care Team Providers Care Cloth Carrier Name Role Phone Brittany Saldana MD Primary Care Provider + Darrin Hernandez Unavailable Unavailable Reason for Visit * Reason Onset Date Comments Referral 09/02/2023 Encounter Details Date Type Department Care Team ([facility] st Contact Info) Description 09/02/2023 Telephone [facility] [address] [place] [address] Brittany Saldana MD [address] [place] [address] Referral Social History Tobacco Use Types Packs/Day Years [...] the past 12 months, has t he [employer], gas, oil or water company threatened to [...] encounter Miscellaneous Notes * Telephone Encounter - Delfina Pham - 09/02/2023 2:56 PM EDT Tc from pt requesting a new referral for [employer] [facility], pt stated needs a hearing test. 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) Neurofibromatosis, Type 1 (von Recklinghausen's disease) documented in this encounter Additional Health Concerns Assessment Noted Time PHQ-9 Depression Total Score: 7 07/06/20 23 2:07 PM EDT documented as of this encounter Care Teams Cloth Carrier Relationship Specialty Start Date End Date Brittany Saldana MD [address] [place] [address] PCP - General Family Medicine 05/08/20 Darrin Hernandez FNP [address] [place] [address] Nurse Practitioner Family Medicine 10/19/23 documented as of this encounter
--- OUTSIDE RECORDS SUMMARY | 2025-01-03 13:18 | XMS_ITS | Encounter Summary ---
Author Organization [employer] Address [address] [facility] 7 [place] [address] Care Team Providers Care Rheologist Name Role Phone Brittany Saldana MD Primary Care Provider + Darrin Hernandez Unavailable Unavailable Encounter Details Date Type Department Care Team (Late st Contact Info) Description 12/22/2024 4:00 PM EST Office Visit [facility] [address] [place] [address] Eb Merino MD [address] [place] [address] Hemangioma of skin (Primary Dx); Neurofibromatosis (nonmalignant) (CMS/HCC) Social History Tobacco Use Types Packs/Day [...] the past 12 months, has t he [employer], gas, oil or water company threatened to [...] Sign Reading Time Taken Comments Blood Pressure 160/80 12/22/2024 3:41 PM EST Pulse 65 12/22/2024 3:41 PM EST Temperature 37.1 ??C (98.7 ??F) 12/22/2024 3:41 PM ES T Respiratory Rate 18 12/22/2024 3:41 PM EST Oxygen Saturation - - Inhaled Oxygen Concentration - - Weight 63.6 kg (140 lb 3.2 oz) 12/22/2024 3:41 P M EST Height 160 cm (5' 3 ) 12/22/2024 3:41 PM EST Body Mass Index 24.84 12/22/2024 3:41 PM EST documented in this encounter Progress Notes * Eb Merino MD - 12/22/2024 4:00 PM EST Subjective Patient ID: Narendra Calles is a 69 y.o. male who presents for No chief complaint on file.. HPI 69 yr old man with hx fo neurofibromatosis here today for face lesion that bleeds when he shaves also another one his back that bleeds sometimes. Review of Systems Constitutional: Negative for diaphoresis, fatigue and fever. HENT: Negative for ear discharge, ear pain, facial swelling and hearing loss. Respiratory: Negative for cough, choking, chest tightness and shortness of breath. Cardiovascular: Negative for chest pain and leg swelling. Gastrointestinal: Negative for abdominal distention, abdominal pain and anal bleeding. Endocrine: Negative for cold intolerance and heat intolerance. Genitourinary: Negative for enuresis, flank pain and frequency. Musculoskeletal: Negative for arthralgias, back pain and gait problem. Neurological: Negative for dizziness, facial asymmetry and headaches. Psychiatric/Behavioral: Negative for agitation, behavioral problems and confusion. Objective Physical Exam Constitutional: Appearance: Normal appearance. HENT: Head: Normocephalic. Nose: Nose normal. Eyes: Extraocular Movements: Extraocular movements intact. Pulmonary: Effort: Pulmonary effort is normal. Musculoskeletal: Cervical back: Normal range of motion and neck supple. Skin: General: Skin is warm and dry. Comments: Multiple doughy papillomas on upper and lower ext and torso and neck 1x1 cm red papule on L mandibular angle 5x5 mm red papule on upper back Neurological: Mental Status: He is alert. Mental status is at baseline. Assessment/Plan Diagnoses and all orders for this visit: Hemangioma of skin Neurofibromatosis (nonmalignant) (CMS/HCC) Angioma treated as below Consent obtained Area cleaned with alcohol Xylocaine 2% used for local anesthesia angiomas removed with scissors/cautery Light cautery to stop bleeding Home care instructions given Patient tolerated procedure well documented in this encounter Plan of Treatment Upcoming Encounters Date Type Department Care Team (Late st Contact Info) Description 01/30/2025 1:15 PM EDT Office Visit [facility] [address] [place] [address] Brandon Caballero MD [address] [place] [address] documented as of this encounter Goals Goal Patient Goal Type Associated Problems Recent Progress Patient-Stated? Author Blood Pressure < 140/90 Blood Pressure 160/80(2024 3:41 PM EST) No Venkatesh Skinner, [place] Hemoglobin A1c < 7 Result Component 5.1(01/23/202 5 11:19 AM EST) Venkatesh Mccann, [place] documented as of this encounter Visit Diagnoses Diagnosis Hemangioma of skin- Primary Hemangioma of skin and subcutaneous tissue Neurofibromatosis (nonmalignant) (CMS/[facility]) Neurofibromatosis, unspecified documented in this encounter Additional Health Concerns Assessment Noted Time PHQ-9 Depression Total Score: 2 12/07/19 25 10:39 AM EST documented as of this encounter Care Teams Rheologist Relationship Specialty Start Date End Date Brittany Saldana MD [address] [place] [phone] PCP - General Family Medicine 05/08/20 Darrin Hernandez FNP [address] [place] [phone] Nurse Practitioner Family Medicine 10/19/23 documented as of this encounter
--- OUTSIDE RECORDS SUMMARY | 2025-01-03 13:18 | XMS_ITS | Clinical Summary ---
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 and prn CP/TOLEDO/MARQUEZ Non smoking patient. Assessment & Plan (02/08/2023 2:58 PM EDT): BP record from last month showed BP wnl with occasional low BPs ecrease lasix to 10 mg per day otherwise no other change in medications FU BP in 1 month. 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 Assessment & Plan (11/18/2023 12:28 PM EST): Doing well on current medications Discussed about side effects of finasteride and fu with urology due to ED Resolved Problems Problem Noted Date Diagnosed Date Resolved Date Neck pain 05/02/2024 06/29/2024 Assessment & Plan (05/16/2024 1:21 PM EDT): Continue weekly acupuncture treatments as desired Assessment & Plan (05/02/2024 1:52 PM EDT): Continue accupuncture treatments as desired Encounters Date Type Department Care Team Description 12/27/2024 10:30 AM EST Office Visit [facility] [address] [place] [phone] Migue Stephens MD Alcohol use disorder, severe, in sustained remission (CMS/HCC) (Primary Dx) 12/27/2024 Travel 12/26/2024 Patient Outreach [facility] [address] [place] [address] Cristian Otero 12/22/2024 4:00 PM EST Office Visit [facility] [address] [place] [phone] Eb Merino MD Hemangioma of skin (Primary Dx); Neurofibromatosis (nonmalignant) (CMS/HCC) 12/22/2024 Travel 12/21/2024 Travel 12/20/2024 Telephone [facility] [address] [place] [phone] Brittany Saldana MD Durable Medical Equipment (DME Reuqest: [facility] bed) 12/19/2024 1:15 PM EST Office Visit [facility] [place] [address] Brandon Caballero MD Alcohol use disorder, severe, in sustained remission (CMS/HCC) (Primary Dx) 12/19/2024 Patient Outreach [facility] [place] [address] Jose Chang Recovery Supports 12/19/2024 Travel 12/13/2024 10:30 AM EST Office Visit [facility] [place] [address] Migue Stephens MD Alcohol use disorder, severe, in sustained remission (CMS/HCC) (Primary Dx) 12/13/2024 Travel 12/12/2024 Patient Outreach [facility] [place] [address] Ted Olvera Recovery Supports 12/12/2024 Travel 12/07/2024 10:30 AM EST Office Visit [facility] [place] [address] Brittany Saldana MD Essential (primary) hypertension (Primary Dx); Recurrent major depressive disorder, in partial remission (CMS/HCC); Neurofibromatosis, type 1 (von Recklinghausen's disease) (CMS/HCC); Type 2 diabetes mellitus without complication, without long-term current use of insulin (CMS/HCC); Lumbar radiculopathy, chronic; Polyneuropathy associated with underlying disease (CMS/HCC) 12/07/2024 Travel 12/05/2024 Patient Outreach [facility] [place] [address] Ted Olvera Recovery Supports 11/30/2024 Telephone [facility] [place] [address] Pippa Aldrich, gun fitter Question 11/30/2024 Orders Only [facility] [place] [address] Brittany Saldana MD 11/29/2024 10:00 AM EST Office Visit [facility] [place] [address] Migue Stephens MD Alcohol use disorder, severe, in sustained remission (CMS/HCC) (Primary Dx) 11/29/2024 Travel 11/28/2024 Patient Outreach [facility] [place] [address] Jose Chang Recovery Supports 11/22/2024 10:00 AM EST Office Visit [facility] [place] [address] Migue Stephens MD Alcohol use disorder, severe, in sustained remission (CMS/HCC) (Primary Dx) 11/22/2024 Travel 11/21/2024 1:15 PM EST Office Visit [facility] [address] [facility] [place] [address] Brandon Caballero MD Alcohol use disorder, severe, in sustained remission (CMS/HCC) (Primary Dx) 11/21/2024 Patient Outreach [facility] [place] [address] Ted Olvera Recovery Supports 11/20/2024 Refill [facility] [place] [address] Brittany Saldana MD Type 2 diabetes mellitus without complication, without long-term current use of insulin (CMS/HCC); Depression, unspecified depression type 11/14/2024 Travel 11/04/2024 Refill [facility] [place] [address] Brittany Saldana MD Mild intermittent asthma without complication 11/03/2024 Telephone [facility] [place] [address] Brittany Saldana MD 11/02/2024 Telephone [facility] [address] [place] [address] Brittany Saldana MD 11/01/2024 10:00 AM EST Office Visit [facility] [place] [address] Migue Stephens MD Alcohol use disorder, severe, in sustained remission (CMS/HCC) (Primary Dx) 11/01/2024 Orders Only [facility] [place] [address] Brittany Saldana MD Neurofibromatosis, type 1 (von Recklinghausen's disease) (CMS/HCC) (Primary Dx); Vertigo; Neuropathy 11/01/2024 Travel 11/01/2024 Telephone [facility] [place] [address] Brittany Saldana MD Medication Question 10/31/2024 Patient Outreach [facility] [place] [address] Jose Chagn Recovery Supports 10/24/2024 Patient Outreach [facility] [address] [place] [address] OlveraTed nails 10/19/2024 Refill [facility] [place] [address] Brittany Saldana MD Chronic rhinitis 10/18/2024 10:00 AM EST Clinical Support [facility] [place] [address] Janae Walden RN Alcohol use disorder, severe, in sustained remission (CMS/HCC) 10/18/2024 Travel 10/18/2024 Patient Outreach [facility] [place] [address] LoveraTed nails 10/11/2024 Refill [facility] [place] [address] Brittany Saldana MD Depression, unspecified depression type 10/11/2024 Abstract [facility] [place] [address] Brittany Saldana MD 10/10/2024 1:00 PM EST Office Visit [facility] [place] [address] Brandon Caballero MD Alcohol use disorder, severe, in sustained remission (CMS/HCC) (Primary Dx); Depression, unspecified depression type 10/10/2024 Abstract [facility] [place] [address] Brittany Saldana MD 10/10/2024 Travel 10/09/2024 10:30 AM EST Clinical Support [facility] [place] [address] Pippa Aldrich RN Essential (primary) hypertension 10/09/2024 Refill [facility] [address] [place] [address] Pippa Aldrich RN Primary hypertension 10/09/2024 Travel 10/06/2024 Refill [facility] [address] [place] [address] Brittany Saldana MD 10/04/2024 10:30 AM EST Office Visit [facility] [address] [place] [address] Migue Stephens MD Alcohol use disorder, severe, in sustained remission (CMS/HCC) (Primary Dx) 10/04/2024 Telephone [facility] [address] [place] [address] [phone] Marguerite Wylie MD 10/04/2024 Travel 10/03/2024 11:00 AM EST Office Visit [facility] [address] [place] [address] [phone] Marguerite Wylie MD Irregularly irregular pulse rhythm (Primary Dx); Benign hypertension 10/03/2024 Patient Outreach [facility] [address] [place], [place] [phone] Ted Olvera 10/03/2024 Travel from Last 3 Months Immunizations Name Administration Dates Next Due Hep A, Adult 09/02/2022,02/17/2022 Hep B, adult 09/02/2022,05/06/2022,02/17/2022 IG 10/01/2021 Influenza High-dose Quadriva lent Preservative Free 08/17/2023 Influenza Injectable Quadriv alant Preservative Free IIV4 MDCK 12/17/2017 Influenza injectable quadriv alent preservative free 08/05/2022,10/01/2021,09/13/2020 Influenza, High Dose Seasona l, Preservative Free 10/01/2021 Influenza, IIV3, injectable 08/11/2019,1 12/06/2015,09/16/2015,08/01,07/09/2013 Influenza, seasonal, injecta ble, preservative free 09/16/2015 Moderna Covid-19 Vaccine 12+ 03/04/2022, 10/01/2021,02/09/2021,01/11 Pfizer Covid-19 Vaccine 12+ 08/17/2023 Pfizer Covid-19 Vaccine 12+ Bivalent 09/02/2022 Pneumococcal Conjugate PCV 20 10/02/2022 Pneumococcal Polysaccharide PPSV23 10/06/2019 RSV Bivalent 02/12/2024 Tdap 03/04/2022 Zoster, Recombinant 01/03/2021,09/13/2020 Social History Tobacco Use Types Packs/Day Years [...] not to disclose 2021 10:36 AM EDT Last Filed Vital Signs Vital Sign Reading Time Taken Comments Blood Pressure 160/80 12/22/2024 3:41 PM EST Pulse 65 12/22/2024 3:41 PM EST Temperature 37.1 ??C (98.7 ??F) 12/22/2024 3:41 PM ES T Respiratory Rate 18 12/22/2024 3:41 PM EST Oxygen Saturation 98% 10/09/2024 10:55 AM EST Inhaled Oxygen Concentration - - Weight 63.6 kg (140 lb 3.2 oz) 12/22/2024 3:41 P M EST Height 160 cm (5' 3 ) 12/22/2024 3:41 PM EST Body Mass Index 24.84 12/22/2024 3:41 PM EST Plan of Treatment Upcoming Encounters Date Type Department Care Team (Late st Contact Info) Description 01/30/2025 1:15 PM EDT Office Visit [facility] [address] [place], [place] [phone] Brandon Caballero MD [address] [place], [place] [phone] Health Maintenance Due Date Last Done Comments CT Colonography 1957 Dental Oral Exam 1957 Dental Prophylaxis 1957 Dental X-Ray: Bitewings 1957 Dental X-Ray: Full Mouth 1957 FIT DNA/Cologuard 1957 FIT 1957 FOBT 1957 Sigmoidoscopy 1957 Lipid Panel 12/28/2024 12/28/2023, 0412/2022, 07/14/2022, Additional history exists SDOH Screening 02/28/2025 02/29/2024 Diabetes: Urine Protein Screening 05/02/2025 05/02/2024, 12/09/2021 Diabetes: Hemoglobin A1C 06/06/2025 025, 07/26/2024, 12/28/2023, Additional history exists Diabetes: Foot Exam 07/26/2025 07/26/2024, 07/26/2024, 07/26/2024, Additional history exists Colonoscopy 09/19/2025 09/19/2024 Colorectal Cancer Screening 09/19/2025 Alcohol/Substance Use Screening 12/07/2025 12/07/2024 Depression Screening 12/07/2025 12/07/2024, 12/07/19 Tobacco Screening 12/07/2025 12/07/2024 Eye Exam 04/06/2026 04/06/2024, 03/16, 04/06/2024, Additional history exists DTaP/Tdap/Td Vaccines (2 - Td or Tdap) 03/04/2032 03/04/2022 Zoster Vaccines Completed 01/03/2021, 09/13/2020 Hepatitis C Screening Completed 12/09/2021 Hepatitis A Vaccines Completed 09/02/2022, 02/18/20 Hepatitis B Vaccines Completed 09/02/2022, 05/06/2022, 02/17/2022 Pneumococcal Vaccine: 50+ Years Completed 10/02/2022, 10/06/2019 RSV Patients and Patients Aged 60 years or older Completed 02/12/2024 COVID-19 Vaccine Completed 09/09/2024, 01/2023, 09/02/2022, Additional history exists Influenza Vaccine Completed 09/09/2024, , 08/05/2022, Additional history exists HIB Vaccines Aged Out No longer eligi ble based on patient's age to complete this topic HPV Vaccines Aged Out No longer eligi ble based on patient's age to complete this topic IPV Vaccines Aged Out No longer eligi ble based on patient's age to complete this topic Meningococcal Vaccine Aged Out No dean erasto eligible based on patient's age to complete this topic RSV under 20 months Aged Out No longe r eligible based on patient's age to complete this topic Rotavirus Vaccines Aged Out No longer eligible based on patient's age to complete this topic Goals Goal Patient Goal Type Associated Problems Recent Progress Patient-Stated? Author Blood Pressure < 140/90 Blood Pressure 160/80(2024 3:41 PM EST) No Venkatesh Skinner, [place] Hemoglobin A1c < 7 Result Component 5.1( 11:19 AM EST) No Venkatesh Skinner PharmD Procedures Procedure Name Priority Date/Time Associated Diagnosis Comments POCT GLUCOSE Routine 12/07/2024 11:19 AM EST Type 2 diabetes mellitus without complication, without long-term current use of insulin (CMS/HCC) POCT GLYCATED HEMOGLOBIN, TOTAL Routine 12/07/2024 11:19 AM EST Type 2 diabetes mellitus without complication, without long-term current use of insulin (CMS/HCC) ECG 12-LEAD Routine 10/03/2024 12:30 PM EST Irregularly irregular pulse rhythm TSH W/REFLEX TO FT4 Routine 10/03/2024 1 2:13 PM EST Irregularly irregular pulse rhythm HM COLONOSCOPY Routine 09/19/2024 ALBUMIN, RANDOM URINE W/CREATININE Routine 05/02/2024 1:17 PM EDT LIPID PANEL, STANDARD Routine 12/28/2023 9:54 AM EST ZZZ HISTORICAL HEPATITIS C AB W/REFL TO HCV RNA, QN, PCR Routine 12/09/2021 11:13 AM EST from Last 3 Months or Most Recently Relevant to Health Maintenance Results * POCT HGB A1C (12/07/2024 11:19 AM EST) Hemoglobin A1C 5.1 4.0 - 6.0 % Blood 12/07/2024 11:1 9 AM EST Brittany Saldana MD POINT OF CARE TEST ENTER /EDIT ORDERABLES Final Result * POCT Glucose (12/07/2024 11:19 AM EST) Glucose Blood, POC 105 60 - 200 mg/dL Blood Capillary blood specimen / Unknown 12/07/2024 11:19 AM EST Brittany Saldana MD POINT OF CARE TEST ENTER /EDIT ORDERABLES Final Result * ECG 12 lead (10/03/2024 12:30 PM EST) Narrative Marguerite Wylie MD - 10/03/2024 12:30 PM EST Sinus arrhythmia. ?? Marguerite Wylie MD ECG ORDERABLES Final Result * TSH W/Reflex to FT4 (10/03/2024 12:13 PM EST) TSH reflex Free T4 1.14 0.32 - 4.0 uIU/mL [facility] Blood Venous blood specimen / Unknown 10/03/2024 12:13 PM EST 10/03/2024 1:13 PM EST Marguerite Wylie MD LAB BLOOD ORDERABLES Final Re sult Performing Organization Address [facility] Co de Phone Number [facility] [address] [place] [phone] * (ABNORMAL) Hm Colonoscopy (09/19/2024) Colonoscopy Normal Normal [facility] Comment:poor prep Brittany Saldana MD HEALTH MAINTENANCE Final Result Performing Organization Address [facility] Co de Phone Number [facility] [address] [place] [phone] * Albumin, Random Urine W/Creatinine (05/02/2024 1:17 PM EDT) Creatinine, Urine 51.26 mg/dL [facility] Microalbumin Urine 7.0 mg/L [facility] Microalbum Creatinine Ratio Ur 13.6 <30 ug/mg cr [facility] Comment:Albumin/Creatinine R atio Reference Ranges: Normal: < 30 ug/mg creatinine Microalbuminuria: 30 - 300 ug/mg creatinineClinical Albuminuria: > 300 ug/mg creatinine 05/02/2024 1:17 PM EDT 05/02/2024 3:54 PM EDT Brittany Saldana MD LAB URINE ORDERABLES Fin al Result Performing Organization Address [facility]/ZIP Co de Phone Number [facility] [address] [place] [phone] [phone] * (ABNORMAL) Lipid Panel, Standard (12/28/2023 9:54 AM EST) Triglycerides 71 <150 mg/dL [facility] Comment:Desirable Triglyceri de: less than 150 mg/dLBorderline High Triglyceride 150-199 mg/dLHigh Triglyceride: 200-499 mg/dLVery High Triglyceride: greater than or equal to 5OO mg/dL Cholesterol 115 <200 mg/dL [facility] Comment:Desirable Cholestero l: less than 200 mg/dLBorderline High Cholesterol: 200-239 mg/dLHigh Cholesterol: greater than 239 mg/dL LDL Cholesterol Calculated 68 <100 mg/dL [facility] Comment:Desirable LDL: less than 100 mg/dLNear Optimal/Above Optimal LDL: 110- 129 mg/dLBorderline High LDL: 130-159 mg/dLHigh LDL: 160-189 mg/dLVery High LDL: greater than or equal to 190 mg/dL HDL Cholesterol 33(L) >40 mg/dL [facility] Comment:Desirable HDL: great er than 40 mg/dL Note: This HDL assay may give artificially low results in patients with liver disease. 12/28/2023 9:54 AM EST 12/28/2023 9:54 AM EST us Generic External Data Provider LAB BLOOD ORDERAB LES Final Result [facility] [address] [place] [phone] * HEPATITIS C AB W/REFL TO HCV RNA, QN, PCR (12/09/2021 11:13 AM EST) HEPATITIS C ANTIBODY NON-REACT JAMES NON-REACT JAMES [facility] INDEX 0.03 <1.00 [facility] Comment: ?? HCV antibody was non-reactive. There is no laboratory ?? evidence of HCV infection. ?? In most cases, no further action is required. However, if recent HCV exposure is suspected, a test for HCV RNA (test code 72020) is suggested. ?? For additional information please refer to http://education.Qyer.com.Conceptua Math/faq/SEC37l7 (This link is being provided for informational/ educational purposes only.) ?? 12/09/2021 11:1 3 AM EST us Lulu Garcia ANP HISTORICAL/NON ORDERABLE LABS Fi nal Result [facility] [address] from Last 3 Months or Most Recently Relevant to Health Maintenance Insurance [facility] Care Teams Management Development Specialist Relationship Specialty Start Date End Date Brittany Saldana MD [address] [place] [phone] PCP - General Family Medicine 05/08/20 Darrin Hernandez FNP [address] [place] [phone] Nurse Practitioner Family Medicine 10/19/23
--- OUTSIDE RECORDS SUMMARY | 2025-01-03 13:18 | XMS_ITS | Clinical Summary ---
Author Organization [facility] it Address [address] [place] [address] Care Team Providers Care Corporate Secretary Name Role Phone Samantha Faye MD Primary Care Provider [phone] Social History Tobacco Use Types Packs/Day Years Used Date Smoking Tobacco: Never Assessed Sex and Gender Information Value Date Recorded Sex Assigned at Not on file Legal Sex Male 5:12 AM EST Gender Identity Not on file Sexual Orientation Not on file Plan of Treatment Health Maintenance Due Date Last Done Comments DTaP,Tdap,and Td Vaccines (1 - Tdap) 01/20/1976 Pneumococcal Vaccine: 50+ Ye ars (1 of 1 - PCV) 2007 Zoster Vaccines (1 of 2) 2007 COVID-19 Vaccine ( - 2023-2 5 season) 2024 Influenza Vaccine (#1) 2024 RSV Immunization Patients 60 + Years Old (1 - 1-dose 75+ series) 01/20/2032 HIB Vaccines Aged Out No longer eligi ble based on patient's age to complete this topic HPV Vaccines Aged Out No longer eligi ble based on patient's age to complete this topic Hepatitis A Vaccines Aged Out No long er eligible based on patient's age to complete this topic Hepatitis B Vaccines Aged Out No long er eligible based on patient's age to complete this topic IPV Vaccines Aged Out No longer eligi ble based on patient's age to complete this topic MMR Vaccines Aged Out No longer eligi ble based on patient's age to complete this topic Meningococcal ACWY Vaccine Aged Out N o longer eligible based on patient's age to complete this topic Meningococcal B Vacine Aged Out No lo nger eligible based on patient's age to complete this topic RSV Immunization Patients Un ron 20 months Aged Out No longer eligible b ased on patient's age to complete this topic Varicella Vaccines Aged Out No longer eligible based on patient's age to complete this topic Care Teams Corporate Secretary Relationship Specialty Start Date End Date Samantha Faye MD [address] [place] [address] PCP - General 05/08/21
--- OUTSIDE RECORDS SUMMARY | 2025-01-03 13:18 | XMS_ITS | Encounter Summary ---
Author Organization [employer] Address [address] [place] [address] 7 [place] [address] Care Team Providers Care Tube Cutter Operator Name Role Phone Brittany Saldana MD Primary Care Provider + Darrin Hernandez Unavailable Unavailable Reason for Visit * Reason Onset Date Comments Durable Medical Equipment 02/17/2023 Encounter Details Date Type Department Care Team ([facility] st Contact Info) Description 02/17/2023 Telephone [facility] [address] [place] [address] Brittany Saldana MD [address] [place] [address] Durable Medical Equipment Social History Tobacco Use [...] * Telephone Encounter - Lisa Lara - 02/18/2023 11:37 AM EDT Scripts generated for providers signature * Telephone Encounter - Moni Radha - 02/17/2023 3:04 PM EDT TC from pt requesting a walker with wheels and seat and also a medical alert button . Pt requested to be sent to [facility] . Any questions please contact pt at [phone]. documented in this encounter Plan of Treatment Upcoming Encounters Date Type Department Care Team (Late st Contact Info) Description 01/30/2025 1:15 PM EDT Office Visit [facility] [address] [place] [phone] Brandon Caballero MD [address] [place] [address] documented as of this encounter Visit Diagnoses Not on filedocumented in this encounter Additional Health Concerns Assessment Noted Time PHQ-9 Depression Total Score: 10 02/11/ 023 10:47 AM EDT documented as of this encounter Care Teams Tube Cutter Operator Relationship Specialty Start Date End Date Brittany Saldana MD [address] [place] [phone] PCP - General Family Medicine 05/08/20 Darrin Hernandez FNP [address] [place] [phone] Nurse Practitioner Family Medicine 10/19/23 documented as of this encounter
--- OUTSIDE RECORDS SUMMARY | 2025-01-03 13:18 | XMS_ITS | Encounter Summary ---
Author Organization [employer] Address [address] [facility] 7 [place] [address] Care Team Providers Care Coat Checker Name Role Phone Brittany Saldana MD Primary Care Provider + Darrin Hernandez Unavailable Unavailable Reason for Visit * Reason Onset Date Comments Med Refill 02/08/2024 Encounter Details Date Type Department Care Team (Late st Contact Info) Description 02/08/2024 Refill [facility] [address] [place] [address] Brittany Saldana MD [address] [place] [address] Social History Tobacco Use Types Packs/Day Years Used Date Smoking Tobacco: Never Smokeless Tobacco: Never Alcohol Use Standard Drinks/Week Comments Not Currently 0 (1 standard drink = 0.6 oz pur e alcohol) Depression Answer Date Recorded Patient Health Questionnaire-9 Score 1 12/27/2023 Patient Health Questionnaire-9 Score 1 12/27/2023 Last PHQ-9: Questionnaire Data Not on file 0 12/27/2023 Housing Stability Answer Date Recorded What is [...] Answer Date Recorded Patient Health Questionnaire-2 Score 0 12/27/2023 Sex and Gender Information Value Date Recorded [...] Description 01/30/2025 1:15 PM EDT Office Visit [facility] [address] [place] [phone] Brandon Caabllero MD [address] [place] [phone] documented as of this encounter Visit Diagnoses Not on filedocumented in this encounter Additional Health Concerns Assessment Noted Time PHQ-9 Depression Total Score: 1 12/27/19 24 1:53 PM EST documented as of this encounter Care Teams Coat Checker Relationship Specialty Start Date End Date Brittany Saldana MD [address] [place] [phone] PCP - General Family Medicine 05/08/20 Darrin Hernandez FNP [address] [place] [phone] Nurse Practitioner Family Medicine 10/19/23 documented as of this encounter
--- OUTSIDE RECORDS SUMMARY | 2025-01-03 13:18 | XMS_ITS | Encounter Summary ---
Author Organization [employer] Address [address] [place] [address] 7 [place] [address] Care Team Providers Care Editor Book Name Role Phone Brittany Saldana MD Primary Care Provider + Darrin Hernandez Unavailable Unavailable Reason for Visit * Reason Onset Date Comments Referral 09/24/2023 Encounter Details Date Type Department Care Team ([facility] st Contact Info) Description 09/24/2023 Telephone [facility] [address] [place] [address] Brittany Saldana MD [address] [place] [address] Referral Social History Tobacco Use Types Packs/Day [...] the past 12 months, has t he [employer], gas, oil or water [employer] threatened to shut off services in your [...] encounter Miscellaneous Notes * Telephone Encounter - Argelia Cheung - 09/24/2023 9:02 AM EST Tc from sri with [facility] requesting a new order for Occupational therapy for weakness in hands. States they received the referral for Occupational therapy but dx says hip pain. Please fax to [phone] Any questions, please contact sri at [phone] documented in this encounter Plan of Treatment Upcoming Encounters Date Type Department Care Team (Late st Contact Info) Description 01/30/2025 1:15 PM EDT Office Visit [facility] [address] [place] [address] Brandon Caballero MD [address] [place] [address] documented as of this encounter Visit Diagnoses Not on filedocumented in this encounter Additional Health Concerns Assessment Noted Time PHQ-9 Depression Total Score: 4 09/06/20 23 11:30 AM EDT documented as of this encounter Care Teams Editor Book Relationship Specialty Start Date End Date Brittany Saldana MD [address] [place] [address] PCP - General Family Medicine 05/08/20 Darrin Hernandez FNP [address] [place] [address] Nurse Practitioner Family Medicine 10/19/23 documented as of this encounter
--- OUTSIDE RECORDS SUMMARY | 2025-01-03 13:18 | XMS_ITS | Encounter Summary ---
Author Organization [employer] Address [address] [facility] 7 [place] [address] Care Team Providers Care Trimming Machine Operator Name Role Phone Brittany Saldana MD Primary Care Provider + Darrin Hernandez Unavailable Unavailable Encounter Details Date Type Department Care Team (Late st Contact Info) Description 12/26/[address] [facility] [address] [place] [address] Cristian Otero [address] [place] [address] Social History Tobacco Use Types Packs/Day Years [...] as of this encounter Progress Notes * Cristian Otero - 12/26/2024 2:52 PM EST I met with Dane ruff. Setting: in person at [facility] Recovery Wellness Goals worked on: Physical Health/Mental Health and Social Stability Action taken/next steps: Attended recovery support group Additional comments: Participant attended a group session centered on recovery topics, where members engaged in open discussion and offered mutual support Cristian Otero documented in this encounter Plan of Treatment Upcoming Encounters Date Type Department Care Team (Late st Contact Info) Description 01/30/2025 1:15 PM EDT Office Visit [facility] [address] [place] [address] Brandon Caballero MD [address] [place] [address] documented as of this encounter Goals Goal [...] documented as of this encounter Care Teams Trimming Machine Operator Relationship Specialty Start Date End Date Brittany Saldana MD [address] [place] [address] PCP - General Family Medicine 05/08/20 Darrin Hernandez FNP [address] [place] [address] Nurse Practitioner Family Medicine 10/19/23 documented as of this encounter
--- OUTSIDE RECORDS SUMMARY | 2025-01-03 13:18 | XMS_ITS | Encounter Summary ---
Author Organization [employer] Address [address] [facility] 7t [place] [address] Care Team Providers Care Line Construction Supervisor Name Role Phone Brittany Saldana MD Primary Care Provider + Darrin Hernandez Unavailable Unavailable Encounter Details Date Type Department Care Team (Latest Contact Info) Description 12/27/2024 Travel Social History Tobacco Use Types Packs/Day [...] Description 01/30/2025 1:15 PM EDT Office Visit [facility] [address] [place] [address] Brandon Caballero MD 230 [place] [address] documented as of this encounter Goals Goal [...] documented as of this encounter Care Teams Line Construction Supervisor Relationship Specialty Start Date End Date Brittany Saldana MD [address] [place] [address] PCP - General Family Medicine 05/08/20 Darrin Hernandez FNP [address] [place] [address] Nurse Practitioner Family Medicine 10/19/23 documented as of this encounter
--- OUTSIDE RECORDS SUMMARY | 2025-01-03 13:18 | XMS_ITS | Encounter Summary ---
Author Organization [employer] Address [address] [facility] 7t [place] [address] Care Team Providers Care Registered Pharmacy Technician Name Role Phone Brittany Saldana MD Primary Care Provider + Darrin Hernandez Unavailable Unavailable Encounter Details Date Type Department Care Team (Latest Contact Info) Description 12/22/2024 Travel Social History Tobacco Use Types Packs/Day [...] EDT Office Visit [facility] [address] [place] [address] Brandon Caballero MD 230 [place] [address] documented as of this encounter Goals Goal [...] documented as of this encounter Care Teams Registered Pharmacy Technician Relationship Specialty Start Date End Date Brittany Saldana MD [address] [place] [address] PCP - General Family Medicine 05/08/20 Darrin Hernandez FNP [address] [place] [address] Nurse Practitioner Family Medicine 10/19/23 documented as of this encounter
--- OUTSIDE RECORDS SUMMARY | 2025-01-03 13:18 | XMS_ITS | Encounter Summary ---
Author Organization [employer] Address [address] [place] [address] 7 [place] [address] Care Team Providers Care Marketing Support Specialist Name Role Phone Brittany Saldana MD Primary Care Provider + Darrin Hernandez Unavailable Unavailable Reason for Visit * Reason Comments Med Refill Encounter Details Date Type Department Care Team (Late st Contact Info) Description 03/15/2023 Refill [facility] [address] [place] [address] Brittany Saldana MD [address] [place] [address] Primary hypertension Social History Tobacco Use Types Packs/Day [...] suspected to have Coronavirus/COVID-19? No / Unsure 02/24/2023 11:12 AM EDT documented as of this encounter Plan of Treatment Upcoming Encounters Date Type Department Care Team (Late st Contact Info) Description 01/30/2025 1:15 PM EDT Office Visit [facility] [address] [place] [address] Brandon Caballero MD [address] [place] [address] documented as of this encounter Visit Diagnoses Diagnosis Primary hypertension Unspecified essential hypertension documented in this encounter Additional Health Concerns Assessment Noted Time PHQ-9 Depression Total Score: 10 023 10:47 AM EDT documented as of this encounter Care Teams Marketing Support Specialist Relationship Specialty Start Date End Date Brittany Saldana MD [address] [place] [address] PCP - General Family Medicine 05/08/20 Darrin Hernandez FNP [address] [place] [address] Nurse Practitioner Family Medicine 10/19/23 documented as of this encounter
--- OUTSIDE RECORDS SUMMARY | 2025-01-03 13:18 | XMS_ITS | Encounter Summary ---
Author Organization [employer] Address [address] [facility] 7 [place] [address] Care Team Providers Care It Technical Support Specialist Name Role Phone Brittany Saldana MD Primary Care Provider + Darrin Hernandez Unavailable Unavailable Encounter Details Date Type Department Care Team (Late st Contact Info) Description 12/27/2024 10:30 AM EST Office Visit [facility] [address] [place] [address] Migue Stephens MD [address] [place] [address] Alcohol use disorder, severe, in sustained remission [...] Progress Notes * Migue Stephens MD - 12/27/2024 10:30 AM EST LAST GBAT VISIT 12/13/2024 Patient presents for Group-Based Opioid Treatment for AUD Patient presents for his GBAT meeting Reviewed the group goals, expectations and policies Consented to the group treatment options Actively participated in the group discussion with the topic of: Extended Check-In Following staff present at the visit: Physician, Shell Molder, Team RN, Clinician, and MedicalAssistant Opportunities provided to address individual medical/medication/BH concerns States doing well without cravings or relapse Undergoing training through [employer] Also signed up for [employer] TODAY [facility]AT VISIT 12/27/2024 Patient presents for Group-Based Opioid Treatment for AUD Patient presents for his GBAT meeting Reviewed the group goals, expectations and policies Consented to the group treatment options Actively participated in the group discussion with the topic of: Changing Negative Perspectives ofDetoxification Following staff present at the visit: Physician, Shell Molder, Team RN, Clinician, and MedicalAssistant Opportunities provided to address individual medical/medication/BH concerns States doing well without cravings or relapse Undergoing training through [employer] Also signed up for [employer] Review of Systems Psychiatric/Behavioral: Negative for behavioral problems and dysphoric mood. The patient is not nervous/anxious. Physical Exam Constitutional: Appearance: Normal appearance. Pulmonary: Effort: Pulmonary effort is normal. Neurological: Mental Status: He is alert. Psychiatric: Mood and Affect: Mood normal. Behavior: Behavior normal. Diagnoses and all orders for this visit: [...] faced situations that may trigger use Mass DEVICE ENGINEER reviewed Undergoing training through [employer] Also signed up for [employer] Participating in the [employer] activities Following staff present at the visit: Physician, Team RN, Clinician, Shell Molder and Supervisor Hard Candy Follow up in 1 week for the [...] Description 01/30/2025 1:15 PM EDT Office Visit [facility] [address] [place] [address] Brandon Caballero MD [address] [place] [address] documented as of this encounter Goals Goal Patient Goal Type Associated Problems Recent Progress Patient-Stated? Author Blood Pressure < 140/90 Blood Pressure 160/80(2024 3:41 PM EST) No Venkatesh Skinner PharmD Hemoglobin A1c < 7 Result Component 5.1( 11:19 AM EST) No Venkatesh Skinner PharmD documented as of this encounter Visit Diagnoses Diagnosis Alcohol use disorder, severe, in sustained remission ([facility])- Primary documented in this encounter Additional Health Concerns Assessment Noted Time PHQ-9 Depression Total Score: 2 12/07/19 25 10:39 AM EST documented as of this encounter Care Teams It Technical Support Specialist Relationship Specialty Start Date End Date Brittany Saldana MD [address] [place] [address] PCP - General Family Medicine 05/08/20 Darrin Hernandez FNP [address] [place] [address] Nurse Practitioner Family Medicine 10/19/23 documented as of this encounter
== END 2025-01-03 13:43 | disposition home or self-care (01) ==
PROVIDERS: PCP Internal Medicine; Visit Provider Internal Medicine Cardiovascular Disease
DX: I49.9 Cardiac arrhythmia, unspecified (principal); I10 Essential (primary) hypertension
CPT/HCPCS: 93010; 99214; G2211

== ENCOUNTER → 2025-01-03 13:05 | Outpatient (BNVA) | payer OTHER, SELFPAY | PROVIDERS: PCP Internal Medicine; Visit Provider Internal Medicine Cardiovascular Disease | DX: R00.2 Palpitations (principal); I10 Essential (primary) hypertension; I49.9 Cardiac arrhythmia, unspecified | CPT/HCPCS: 93005; 99212 ==

== ENCOUNTER → 2025-01-31 09:50 | Outpatient (REF) | payer OTHER, SELFPAY ==
--- NOTE | 2025-01-31 09:53 | CA_ITS ---
Transthoracic Echocardiogram Patient (Last, First, Middle): Dane Calles J Gender: Male Date of : 1955 Age: 70 Procedure Date: 01/31/2025 Procedure Type: Transthoracic Echocardiogram Location: OP Height: 160.02 cm Weight: 67.59 kg BSA: 1.71 m2 Heart Rate: bpm BP: 150 / 72 mmHg Assembly Line Worker: GABRIEL Referring MD: Roman Olivia MD Barking Machine Feeder: Roman Olivia MD Symptoms: I49.9 - Cardiac arrhythmia, unspecified Study Quality: Adequate ECG Rhythm: Ectopy Conclusions: - 1. Normal LV ejection fraction of 65-70% with grade 2 diastolic dysfunction 2. Severely dilated left atrium and moderately dilated right atrium 3. Moderate aortic regurgitation 4. Mild mitral regurgitation 5. Upper limits of normal RV systolic pressure with mildly elevated right atrial pressures 6. Small pericardial effusion more prominent near the left ventricle Findings Left Ventricle Normal left ventricular size, thickness, and systolic function. The visually estimated ejection fraction is between 65-70%. Spectral Doppler is indicative of a pseudonormal filling pattern. E/E prime ratio is >15, consistent with elevated filling pressures. Evidence suggests grade II (moderate) diastolic dysfunction. Right Ventricle Mildly increased right ventricular cavity size. There is normal right ventricular systolic function. Atria The left atrium is severely dilated. Interatrial shunt cannot be excluded. The right atrium is moderately dilated. Aortic Valve There is mild calcification of the aortic valve. There is no aortic valve stenosis. There is moderate aortic valve regurgitation. Mitral Valve There is moderate anterior and mild posterior mitral leaflet thickening. There is mild mitral valve regurgitation. There is no mitral valve stenosis. Pulmonic Valve The pulmonic valve was not well visualized. Tricuspid Valve Likely normal tricuspid valve structure and function. There is mild tricuspid valve regurgitation. The right ventricular systolic pressure is 38 mmHg. Mildly elevated right atrial pressure. There is no evidence of pulmonary hypertension. Great Vessels The aorta was not well visualized. The pulmonary artery was not well visualized. There is mild dilatation of the ascending aorta measuring 3.80 cm. Venous The inferior vena cava is mildly dilated and collapses greater than 50% with inspiration. Pericardium/Pleural There is a small loculated pericardial effusion overlying the left ventricle. Prior Study Comparison No prior study available for comparison. Measurements 2D Linear Measurements IVSd: 1.05 0.6-0.9/0.6-1.0 cm LVIDd: 5.32 3.9-5.3/4.2-5.9 cm LVIDd Index: 3.11 2.4-3.2/2.2-3.1 cm/m2 LVIDs: 3.32 2.0-3.6 cm LVPWd: 1.22 0.7-1.1 cm LA Diam: 5.10 2.7-3.8/3.0-4.0 cm LAIDs Index: 2.98 1.5-2.3 cm/m2 LV Mass: 298.14 67-162/88-224 g LV Mass Index: 174.35 43-95/49-115 g/m2 LVOT Diam: 2.10 3.0+(-)1.3 cm 2D Systolic Function EF 4C: 66.50 >55% EF 2C: 68.80 >55% EF BiP: 67.60 >55% Mitral Valve MV Pk E: 0.95 MV PK A: 0.86 MV Decel Time: 168.00 E/A: 1.10 E'Lateral: 4.18 E'Medial: 4.26 E/E' Med: 22.30 E/E' Lat: 22.80 PHT: 50.00 MVA PHT: 4.40 Decel Kenton: 6.02 Aortic Valve AoV Pk Filemon: 1.31 AoV Mn Filemon: 0.78 AoV VTI: 0.29 AoV Pk Grad: 7.00 Aov Mn Grad: 3.00 MARVIN Cont.VTI: 3.35 LVOT LVOT Pk Fileomn: 1.16 LVOT Mn Filemon: 0.74 LVOT VTI: 0.28 LVOT Pk Grad: 5.00 LVOT Mn Grad: 3.00 LVOT Diam: 2.10 LVOT Area: 3.46 Diastolic Function MV Pk E: 0.95 MV Pk A: 0.86 E/A: 1.10 E'Medial: 4.26 E/E' Med: 22.30 E' Laterial: 4.18 E/E' Lat: 22.80 Right Ventricle TAPSE (mm): 28.30 TVS' Filemon: 14.60 Tricuspid Valve TR Pk Filemon: 2.73 TR Pk Grad: 30.00 RA Press: 8.00 RVSP: 38.00 Great Vessels Aorta Sinus of Valsalva: 3.46 2.0-3.[address] Ridge: 3.12 1.7-3.4 cm Ao Asc: 3.80 2.1-3.4 cm Ao Arch: 3.40 Updated in Other Vendor System with Status of Final Roman Olivia MD electronically signed on 01/31/2025 1:22:58 PM with status of Final
--- NOTE | 2025-01-31 09:53 | HM_ITS ---
* Total procedure length 30 days. Wear time 30 days. * Underlying rhythm is sinus with an average rate of 64/Min. * Frequent supraventricular ectopy with a burden of 5.1%. * Rare ventricular ectopy. * No significant pauses or high-grade AV blocks. * Palpitations/racing in patient diary associated mostly with supraventricular ectopy and some ventricular ectopy. MTDD
== END ==
LOC: HO.CARD 09:50
PROVIDERS: PCP Internal Medicine; Visit Provider Internal Medicine Cardiovascular Disease
DX: I49.9 Cardiac arrhythmia, unspecified (principal); I49.1 Atrial premature depolarization
CPT/HCPCS: 93270; 93306

== ENCOUNTER → 2025-01-31 09:53 | Outpatient (BNV) | payer OTHER, SELFPAY | PROVIDERS: PCP Internal Medicine; Visit Provider Internal Medicine Cardiovascular Disease | DX: I42.8 Other cardiomyopathies (principal); I51.7 Cardiomegaly; I34.0 Nonrheumatic mitral (valve) insufficiency; I36.1 Nonrheumatic tricuspid (valve) insufficiency | CPT/HCPCS: 93306 ==

== ENCOUNTER 2025-02-21 11:22 | Outpatient (REF) | payer OTHER, SELFPAY ==
--- OUTSIDE RECORDS SUMMARY | 2025-02-21 13:27 | XMS_ITS | Encounter Summary ---
Author Organization [employer] Address [address] [place] [address] 7 [place] [address] Care Team Providers Care Lapel Stitcher Name Role Phone Brittany Saldana MD Primary Care Provider + Darrin Hernandez Unavailable Unavailable Reason for Visit * Reason Comments Med Refill Encounter Details Date Type Department Care Team (Late st Contact Info) Description 04/21/2024 Refill [facility] 230 [place] [address] Brittany Saldana MD 230 [place] [address] Mild intermittent asthma without complication Social History [...] Care Team (Late st Contact Info) Description 03/16/2025 2:00 PM EDT Office Visit [facility] [address] [place] [address] Eb Merino MD [address] [place] [address] 03/20/2025 1:15 PM EDT Office Visit [address] [address] Brandon Caballero MD [address] [place] [address] 04/12/2025 11:45 AM EDT Office Visit [address] [address] Brittany Saldana MD [address] [place] [address] documented as of this encounter Goals Goal Patient Goal Type Associated Problems Recent Progress Patient-Stated? Author Blood Pressure < 140/90 Blood Pressure 136/62(2024 11:12 AM EDT) Venkatesh Mccann, PharmD Hemoglobin A1c < 7 Result Component 5.1( 5 11:19 AM EST) No Venkatesh Skinner PharmD documented as of this encounter Visit Diagnoses Diagnosis Mild intermittent asthma without complication documented in this encounter Additional Health Concerns Assessment Noted Time PHQ-9 Depression Total Score: 4 03/06/20 24 2:22 PM EDT documented as of this encounter Care Teams Lapel Stitcher Relationship Specialty Start Date End Date Brittany Saldana MD [address] [place] [address] PCP - General Family Medicine 05/08/20 Darrin Hernandez FNP [address] [place] [address] Nurse Practitioner Family Medicine 10/19/23 documented as of this encounter
--- OUTSIDE RECORDS SUMMARY | 2025-02-21 13:27 | XMS_ITS | Encounter Summary ---
Author Organization [employer] Address [address] [place] [address] 7 [place] [address] Care Team Providers Care Foundation Relations Manager Name Role Phone Brittany Saldana MD Primary Care Provider + Darrin Hernandez Unavailable Unavailable Reason for Visit * Reason Comments Med Refill Encounter Details Date Type Department Care Team (Late st Contact Info) Description 06/03/2023 Refill [facility] [address] [place] [address] Drarin Hernandez FNP Depression, unspecified depression type Social [...] Description 03/16/2025 2:00 PM EDT Office Visit [facility] [address] [place] [address] Eb Merino MD [facility] [place] [address] 03/20/2025 1:15 PM EDT Office Visit [facility] [address] [place] [address] Brandon Caballero MD [address] [place], [place] 04/12/2025 11:45 AM EDT Office Visit [facility] [address] [place], [place] [address] [place] [address] [place] [address] documented as of this encounter Visit Diagnoses Diagnosis Depression, unspecified depression type documented in this encounter Additional Health Concerns Assessment Noted Time PHQ-9 Depression Total Score: 11 023 10:47 AM EDT documented as of this encounter Care Teams Foundation Relations Manager Relationship Specialty Start Date End Date [place] [address] PCP - General Family Medicine 05/08/20 Darrin Hernandez FNP [address] [place] [address] Nurse Practitioner Family Medicine 10/19/23 documented as of this encounter
--- OUTSIDE RECORDS SUMMARY | 2025-02-21 13:27 | XMS_ITS | Encounter Summary ---
Author Organization [employer] Address [address] [place] [address] 7t [place] [address] Care Team Providers Care Account Manager Name Role Phone Brittany Saldana MD Primary Care Provider + Darrin Hernandez Unavailable Unavailable Encounter Details Date Type Department Care Team (Latest Contact Info) Description 08/07/2022 Abstract [facility] CONVERSIONS Dental, Provider, DDS Social History [...] Description 03/16/2025 2:00 PM EDT Office Visit [facility] [address] [place] [address] Eb Merino MD [address] [place] [phone] 03/20/2025 1:15 PM EDT Office Visit [facility] [address] [place] [address] Brandon Caballero MD [address] [place] [phone] 04/12/2025 11:45 AM EDT Office Visit [facility] [address] [place] [address] [phone] Brittany Saldana MD [address] [place] [phone] documented as of this encounter Visit Diagnoses Not on filedocumented in this encounter Care Teams Account Manager Relationship Specialty Start Date End Date Brittany Saldana MD [address] [place] [address] PCP - General Family Medicine 05/08/20 Darrin Hernandez FNP [address] [place] [address] Nurse Practitioner Family Medicine 10/19/23 documented as of this encounter
--- OUTSIDE RECORDS SUMMARY | 2025-02-21 13:27 | XMS_ITS | Encounter Summary ---
Author Organization [employer] Address [address] [place] [address] 7 [place] [address] Care Team Providers Care Shingles Roofer Name Role Phone Brittany Saldana MD Primary Care Provider + Darrin Hernandez Unavailable Unavailable Reason for Visit * Reason Comments [facility] Recovery Supports Encounter Details Date Type Department Care Team (Late st Contact Info) Description 02/20/2025 Patient Outreach [facility] [address] [place] [address] Joes Chang [address] [place] [address] Recovery Supports Social History Tobacco Use Types [...] Recorded Patient Health Questionnaire-2 Score 2 12/07/2024 Internet Access Answer Date Recorded Internet Access Q1 Yes 01/22/2025 Internet Access Q2 Not on file 01/22/2025 Sex and Gender Information Value Date Recorded Sex Assigned at Male 09/14/2022 10:36 AM EDT Legal Sex Male 10:36 AM EDT Gender Identity Male 09/14/2022 10:36 AM EDT Sexual Orientation Choose not to disclose 2021 10:36 AM EDT documented as of this encounter Progress Notes * Jose Chang - 02/20/2025 3:24 PM EDT I met with Dane today. Setting: in person at [facility] Recovery Wellness Goals worked on: Physical Health/Mental Health, Social Stability, and Spiritual Wellness Action taken/next steps: Attended recovery support group Additional comments: Jose Chang documented in this encounter Plan of Treatment Upcoming Encounters Date Type Department Care Team (Late st Contact Info) Description 03/16/2025 2:00 PM EDT Office Visit [facility] [address] [place] [address] Eb Merino MD [address] [place] [address] 03/20/2025 1:15 PM EDT Office Visit [facility] [address] [place] [address] Brandon Caballero MD [address] [place] [address] 04/12/2025 11:45 AM EDT Office Visit [facility] [address] [place] [address] Brittany Saldana MD [address] [place] [address] documented as of this encounter Goals Goal Patient Goal Type Associated Problems Recent Progress Patient-Stated? Author Blood Pressure < 140/90 Blood Pressure 136/62(2024 11:12 AM EDT) No Venkatesh Skinner, [place] Hemoglobin A1c < 7 Result Component 5.1( 11:19 AM EST) No Venkatesh Skinner PharmD documented as of this encounter Visit Diagnoses Not on filedocumented in this encounter Additional Health Concerns Assessment Noted Time PHQ-9 Depression Total Score: 2 12/07/19 25 10:39 AM EST documented as of this encounter Care Teams Shingles Roofer Relationship Specialty Start Date End Date Brittany Saldana MD [address] [place] [address] PCP - General Family Medicine 05/08/20 Darrin Hernandez FNP [address] [place] [address] Nurse Practitioner Family Medicine 10/19/23 documented as of this encounter
--- OUTSIDE RECORDS SUMMARY | 2025-02-21 13:27 | XMS_ITS | Encounter Summary ---
Author Organization [employer] Address [address] [place] [address] 7 [place] [address] Care Team Providers Care Instant Printer Operator Name Role Phone Brittany Saldana MD Primary Care Provider + Darrin Hernandez Unavailable Unavailable Reason for Visit * Reason Onset Date Comments Referral 09/02/2023 Encounter Details Date Type Department Care Team (Late st Contact Info) Description 09/02/2023 Telephone [facility] [address] [place] [address] Brittany Saldana MD [address] [place] [address] Referral Social History Tobacco Use Types Packs/Day [...] from pt requesting a new referral for Can Tester Specialist, pt stated needs a hearing test. documented in this encounter Plan of Treatment Upcoming Encounters Date Type Department Care Team (Late st Contact Info) Description 03/16/2025 2:00 PM EDT Office Visit [facility] [address] [place] [address] Eb Merino MD [address] [place] [address] 03/20/2025 1:15 PM EDT Office Visit [facility] [address] [place] [address] Brandon Caballero MD [address] [place] [address] 04/12/2025 11:45 AM EDT Office Visit [facility] [address] [place] [address] Brittany Saldana MD [address] [place] [address] documented as of this encounter Visit Diagnoses Diagnosis 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, type 1 (von Recklinghausen's disease) ([facility]) Neurofibromatosis, Type 1 (von Recklinghausen's disease) documented in this encounter Additional Health Concerns Assessment Noted Time PHQ-9 Depression Total Score: 7 07/06/20 23 2:07 PM EDT documented as of this encounter Care Teams Instant Printer Operator Relationship Specialty Start Date End Date Brittany Saldana MD [address] [place] [address] PCP - General Family Medicine 05/08/20 Darirn Hernandez FNP [address] [place] [address] Nurse Practitioner Family Medicine 10/19/23 documented as of this encounter
--- OUTSIDE RECORDS SUMMARY | 2025-02-21 13:27 | XMS_ITS | Encounter Summary ---
Author Organization [employer] Address [address] [place] [address] 7 [place] [address] Care Team Providers Care Haul Driver Name Role Phone Brittany Saldana MD Primary Care Provider + Darrin Hernandez Unavailable Unavailable Reason for Referral * Imaging (Urgent) - Pending Review Specialty Diagnoses / Procedures Referred By Neva santa Referred To Contact Radiology Diagnoses Sudden right hearing loss Procedures Mr Brain w/ and w/o Contrast Xiao Hunter NP [address] [place] [address] Phone: tel: fax: [address] Phone: tel: fax: Referral ID Status Reason Start Date Expiration Date V isits Requested Visits Authorized [id number] Pending Review 02/21/2025 02/21/2026 1 1 Encounter Details Date Type Department Care Team (Late st Contact Info) Description 02/21/2025 10:45 AM EDT Office Visit [facility] [address] [place] [address] Xiao Hunter NP [address] [place] [address] Sudden right hearing loss (Primary Dx); Elevated blood pressure reading in office with diagnosis of hypertension Social History Tobacco Use Types Packs/Day [...] Sign Reading Time Taken Comments Blood Pressure 136/62 02/21/2025 11:12 AM EDT Pulse 68 02/21/2025 10:40 AM EDT Temperature 36.2 ??C (97.1 ??F) 02/21/2025 10:40 AM E DT Respiratory Rate 17 02/21/2025 10:40 AM EDT Oxygen Saturation 100% 02/21/2025 10:40 AM EDT Inhaled Oxygen Concentration - - Weight 63 kg (139 lb) 02/21/2025 10:40 AM EDT Height 160 cm (5' 3 ) 02/21/2025 10:40 AM EDT Body Mass Index 24.62 02/21/2025 10:40 AM EDT documented in this encounter Progress Notes * Xiao Hunter NP - 02/21/2025 10:45 AM EDT SUBJECTIVE: Narendra Calles is a 70 y.o. male presents for sick visit. Complains of hearing loss. HPI: Narendra reports spontaneous onset of right hearing loss 2 days ago upon awakening. Reports feeling of fullness and congestion in the ear. States he flushed the ear and removed a small clump of wax. With this new occurrence, he's noticed an increase in his chronic state of dizziness, now requiring use of cane to assist with his balance. Has tinnitus chronically. Denies trauma, fevers, chills, new meds, confusion, headaches, rashes. Has seasonal allergies which are controlled with nasal spray as usual. Only recent changes to his health was right eye cataract surgery 2 weeks ago. Review of Systems Constitutional: Negative. Negative for chills and fever. HENT: Positive for hearing loss and tinnitus. Negative for congestion and sore throat. Eyes: Negative for discharge. Respiratory: Negative for cough, chest tightness and shortness of breath. Cardiovascular: Negative for chest pain and palpitations. Gastrointestinal: Negative. Negative for abdominal pain, constipation, diarrhea and nausea. Genitourinary: Negative. Negative for difficulty urinating. Musculoskeletal: Negative. Negative for arthralgias and myalgias. Skin: Negative for rash. Neurological: Negative. Negative for dizziness, speech difficulty, light- headedness and headaches. Hematological: Negative. Psychiatric/Behavioral: Negative for behavioral problems, self-injury and suicidal ideas. The patient is not nervous/anxious. OBJECTIVE: Vitals: 02/21/25 1040 02/21/25 1112 BP: (!) 150/69 136/62 BP Location: Left arm Left arm Patient Position: Sitting Sitting BP Cuff Size: Adult Adult Pulse: 68 Resp: 17 Temp: 97.1 ??F (36.2 ??C) TempSrc: Temporal SpO2: 100% Weight: 139 lb (63 kg) Height: 5' 3 (1.6 m) Patient Active Problem List Diagnosis Alcohol abuse [...] chronic Polyneuropathy associated with underlying disease (CMS/HCC) Current Outpatient Medications: albuterol 108 (90 Base) MCG/ACT inhaler, INHALE 2 PUFFS EVERY 4 TO 6 HOURS NEEDED, Disp: 8.5 g, Rfl: 11 ARIPiprazole (Abilify) 2 MG tablet, Take 1 tablet (2 mg) by mouth Once per day., Disp: 90 tablet, Rfl: 3 atorvastatin (Lipitor) 20 MG tablet, TAKE ONE TABLET BY MOUTH AT BEDTIME (FOR CHOLESTEROL), Disp: 30 tablet, Rfl: 11 buPROPion XL (Wellbutrin XL) 300 MG 24 hr tablet, Take 1 tablet (300 mg) by mouth in the morning., Disp: 90 tablet, Rfl: 3 cloNIDine (Catapres) 0.1 MG tablet, TAKE 1 TABLET BY MOUTH AT BEDTIME, Disp: 90 tablet, Rfl: 3 cyanocobalamin (Vitamin B-12) 1000 MCG tablet, TAKE 1 TABLET BY MOUTH EVERY MORNING, Disp: 30 tablet, Rfl: 11 docusate sodium (Colace) 100 MG capsule, Take 1 capsule (100 mg) by mouth 2 times daily. TAKE 1 CAPSULE BY MOUTH TWICE DAILY NEEDED, Disp: 180 capsule, Rfl: 2 finasteride (Proscar) 5 MG tablet, TAKE 1 TABLET BY MOUTH ONCE DAILY, Disp: , Rfl: fluticasone (Flonase) 50 MCG/ACT nasal spray, USE 1-2 SPRAYS EACH NOSTRIL ONCE DAILY NEEDED, Disp: 16 g, Rfl: 3 gabapentin (Neurontin) 300 MG capsule, TAKE ONE CAPSULE BY MOUTH EVERY MORNING, AT NOON AND AT BEDTIME, Disp: 90 capsule, Rfl: 11 glucose blood (OneTouch Ultra) test strip, TEST BLOOD SUGAR TWICE DAILY, Disp: 100 strip, Rfl: 11 Lancets 28G misc, Use 1 lancet to monitor blood glucose twice daily, Disp: 100 each, Rfl: 11 lisinopril 10 MG tablet, Take 1 tablet (10 mg) by mouth Once per day., Disp: 30 tablet, Rfl: 11 meclizine (Antivert) 25 MG tablet, TAKE 1 TABLET BY MOUTH THREE TIMES DAILY IN THE MORNING, AT NOON, AND AT BEDTIME NEEDED FOR DIZZINESS, Disp: 90 tablet, Rfl: 0 melatonin 5 MG tablet, TAKE ONE TABLET BY MOUTH AT BEDTIME, Disp: 30 tablet, Rfl: 3 methylphenidate ER (Concerta) 36 MG CR tablet, TAKE 1 TABLET BY MOUTH EVERY DAY IN THE MORNING DO NOT BREAK, CRUSH, DISSOLVE OR CHEW, Disp: 30 tablet, Rfl: 0 Multiple Vitamins-Minerals (CertaVite/Antioxidants) tablet, Take 1 tablet by mouth in the morning.,Disp: 30 tablet, Rfl: 11 polyethylene glycol, PEG, 3350 (MiraLax) 17 GM/SCOOP powder, Take 17 g by mouth if needed each day (constipation >1d)., Disp: 527 g, Rfl: 11 predniSONE (Deltasone) 20 MG tablet, Take 1 tablet (20 mg) by mouth Once per day for 10 days., Disp: 10 tablet, Rfl: 0 thiamine (Vitamin B-1) 100 MG tablet, 1 tab po/d, Disp: 30 tablet, Rfl: 11 traZODone (Desyrel) 100 MG tablet, TAKE TWO TABLETS BY MOUTH AT BEDTIME, Disp: 60 tablet, Rfl: 11 Physical Exam Vitals reviewed. Constitutional: General: He is not in acute distress. Appearance: Normal appearance. He is not ill-appearing. HENT: Head: Normocephalic and atraumatic. Right Ear: Tympanic membrane and external ear normal. Decreased hearing noted. No drainage, swelling or tenderness. No middle ear effusion. There is no impacted cerumen. No foreign body. Tympanic membrane is not erythematous or bulging. Left Ear: Tympanic membrane and external ear normal. No decreased hearing noted. Ears: Comments: Tuning fork not available at time of exam; abnormal whisper test of right ear Nose: Nose normal. Eyes: General: No scleral icterus. Extraocular Movements: Extraocular movements intact. Cardiovascular: Rate and Rhythm: Normal rate and regular rhythm. Pulses: Normal pulses. Heart sounds: Normal heart sounds. Pulmonary: Effort: Pulmonary effort is normal. No respiratory distress. Breath sounds: Normal breath sounds. Musculoskeletal: General: Normal range of motion. Cervical back: Normal range of motion. Skin: General: Skin is warm and dry. Comments: Scattered fibromas Neurological: General: No focal deficit present. Mental Status: He is alert and oriented to person, place, and time. Gait: Gait abnormal (unbalanced). Psychiatric: Mood and Affect: Mood normal. Behavior: Behavior normal. Current Outpatient Medications Medication Sig Dispense Refill albuterol 108 (90 Base) MCG/ACT inhaler INHALE 2 PUFFS EVERY 4 TO 6 HOURS NEEDED 8.5 g 11 ARIPiprazole (Abilify) 2 MG tablet Take 1 tablet (2 mg) by mouth Once per day. 90 tablet 3 atorvastatin (Lipitor) 20 MG tablet TAKE ONE TABLET BY MOUTH AT BEDTIME (FOR CHOLESTEROL) 30 [id number] buPROPion XL (Wellbutrin XL) 300 MG 24 [...] AT BEDTIME 90 capsule 11 glucose blood (Viyet Ultra) test strip TEST BLOOD SUGAR TWICE DAILY 100 strip 11 Lancets 28G misc Use 1 lancet to monitor blood glucose twice daily 100 each 11 lisinopril 10 MG tablet Take 1 tablet (10 mg) by mouth Once per day. 30 tablet 11 meclizine (Antivert) 25 MG tablet TAKE 1 TABLET BY MOUTH THREE TIMES DAILY IN THE MORNING, AT NOON,AND AT BEDTIME NEEDED FOR DIZZINESS 90 tablet 0 melatonin 5 MG tablet TAKE ONE TABLET BY MOUTH AT BEDTIME 30 tablet 3 methylphenidate ER (Concerta) 36 MG CR tablet TAKE 1 TABLET BY MOUTH EVERY DAY IN THE MORNING DO NOT BREAK, CRUSH, DISSOLVE OR CHEW 30 tablet 0 Multiple Vitamins-Minerals (CertaVite/Antioxidants) tablet Take 1 tablet by mouth in the morning. 30 tablet 11 polyethylene glycol, PEG, 3350 (MiraLax) 17 GM/SCOOP powder Take 17 g by mouth if needed each day (constipation >1d). 527 g 11 predniSONE (Deltasone) 20 MG tablet Take 1 tablet (20 mg) by mouth Once per day for 10 days. 10 tablet 0 thiamine (Vitamin B-1) 100 MG tablet 1 tab po/d 30 tablet 11 traZODone (Desyrel) 100 MG tablet TAKE TWO TABLETS BY MOUTH AT BEDTIME 60 tablet 11 No current facility-administered medications for this visit. Assessment/Plan Diagnoses and all orders for this visit: Sudden right hearing loss Comments: -conductive vs. sensorineural hearing loss vs. labyrinthitis vs. Meniere disease vs. neurofibroma growth vs. Lyme vs. Syphilis vs. other -PE w/o evidence of OM, foreign body occulsion; normal neuro exam with exception of slightly unstable gait -start 10 day course prednisone -labs ordered to rule out possible infective etiology -repeat MRI; previously referred to ENT -may benefit from audiology evaluate -follow-up with PCP in 2 weeks -will call with results Orders: - predniSONE (Deltasone) 20 MG tablet; Take 1 tablet (20 mg) by mouth Once per day for 10 days. - RPR (Monitor) with Reflex to Titer; Future - Lyme Disease Ab with Reflex to Blot (IgG, IgM); Future - HIV-1/2 Antigen and Antibodies, Fourth Generation, with Reflexes; Future - CBC auto differential; Future - Mr Brain w/ and w/o Contrast; Future - Basic Metabolic Panel; Future Elevated blood pressure reading in office with diagnosis of hypertension Comments: -repeat within acceptable limits -reports med compliance -diet and lifestyle reiterated -f/u w/ PCP as scheduled documented in this encounter Plan of Treatment Upcoming Encounters Date Type Department Care Team (Late st Contact Info) Description 03/16/2025 2:00 PM EDT Office Visit [address] [address] Eb Merino MD [address] [place] [address] 03/20/2025 1:15 PM EDT Office Visit [address] [address] Brandon Caballero MD [address] [place] [address] 04/12/2025 11:45 AM EDT Office Visit [address] [address] Brittany Saldana MD [address] [place] [address] Scheduled Orders Name Type Priority Associated Diagnoses Orde r Schedule RPR (Monitor) with Reflex to??Titer Lab Routine Sudden right hearing loss Expected: 02/21/2025, Expires: 02/21/2026 Lyme Disease Ab with Reflex to Blot (IgG, IgM) Lab Routine Sudden right hearing loss Expected: 02/21/2025, Expires: 02/21/2026 HIV-1/2 Antigen and Antibodies, Fourth Generation, with Reflexes Lab Routine Sudden right hearing loss Expected: 02/21/2025 (Approximate), Expires: 02/21/2026 CBC auto differential Lab Routine Sudden right hearing loss Expected: 02/21/2025 (Approximate), Expires: 02/21/2026 Mr Brain w/ and w/o Contrast Imaging Urgent Sudden right hearing loss Expected: 02/21/2025, Expires: 02/21/2026 Basic Metabolic Panel Lab Routine Sudden right hearing loss Expected: 02/21/2025 (Approximate), Expires: 02/21/2026 documented as of this encounter Goals Goal Patient Goal Type Associated Problems Recent Progress Patient-Stated? Author Blood Pressure < 140/90 Blood Pressure 136/62(2024 11:12 AM EDT) No Venkatesh Skinner, [place] Hemoglobin A1c < 7 Result Component 5.1( 11:19 AM EST) No Venkatesh Skinner PharmD documented as of this encounter Visit Diagnoses Diagnosis Sudden right hearing loss- Primary Unspecified sudden hearing loss Elevated blood pressure reading in office with diagnosis of hypertension documented in this encounter Additional Health Concerns Assessment Noted Time PHQ-9 Depression Total Score: 2 12/07/19 25 10:39 AM EST documented as of this encounter Care Teams Haul Driver Relationship Specialty Start Date End Date Brittany Saldana MD [address] [place] [address] PCP - General Family Medicine 05/08/20 Darrin Hernandez FNP [address] [place] [address] Nurse Practitioner Family Medicine 10/19/23 documented as of this encounter
--- OUTSIDE RECORDS SUMMARY | 2025-02-21 13:27 | XMS_ITS | Encounter Summary ---
Author Organization [employer] Address [address] [place] [address] [address] [place] [address] Care Team Providers Care Cell Installer Name Role Phone Brittany Saldana MD Primary Care Provider + Darrin Hernandez Unavailable Unavailable Encounter Details Date Type Department Care Team (Latest Contact Info) Description 02/21/2025 Travel Social History Tobacco Use Types Packs/Day [...] Description 03/16/2025 2:00 PM EDT Office Visit [address] [address] Eb Merino MD [address] [place] [address] 03/20/2025 1:15 PM EDT Office Visit [address] [address] Brandon Caballero MD [address] [place] [address] 04/12/2025 11:45 AM EDT Office Visit [address] [address] Brittany Saldana MD [address] [place] [address] documented as of this encounter Goals Goal Patient Goal Type Associated Problems Recent Progress Patient-Stated? Author Blood Pressure < 140/90 Blood Pressure 136/62(2024 11:12 AM EDT) No Venkatesh Skinner PharmD Hemoglobin A1c < 7 Result Component 5.1( 11:19 AM EST) No Venkatesh Skinner PharmD documented as of this encounter Visit Diagnoses Not on filedocumented in this encounter Additional Health Concerns Assessment Noted Time PHQ-9 Depression Total Score: 2 12/07/19 25 10:39 AM EST documented as of this encounter Care Teams Cell Installer Relationship Specialty Start Date End Date Brittany Saldana MD [address] [place] [address] PCP - General Family Medicine 05/08/20 Darrin Hernandez FNP [address] [place] [address] Nurse Practitioner Family Medicine 10/19/23 documented as of this encounter
--- OUTSIDE RECORDS SUMMARY | 2025-02-21 13:27 | XMS_ITS | Encounter Summary ---
Author Organization [employer] Address [address] [place] [address] 7 [place] [address] Care Team Providers Care Hospitality Associate Name Role Phone Brittany Saldana MD Primary Care Provider + Darrin Hernandez Unavailable Unavailable Reason for Visit * Reason Onset Date Comments Appointment 09/10/2023 Encounter Details Date Type Department Care Team (Late st Contact Info) Description 09/10/2023 Telephone [facility] [address] [place] [address] Misbah Kerraris [address] [place] [address] Appointment Social History Tobacco Use Types Packs/Day [...] cleaning appt. Last appt he had in [place] was deep leaning in September and the [...] Description 03/16/2025 2:00 PM EDT Office Visit [facility] [address] [place] [address] Eb Merino MD [address] [place] [address] 03/20/2025 1:15 PM EDT Office Visit [facility] [address] [place] [address] Brandon Caballero MD [address] [place] [address] [place] [address] 04/12/2025 11:45 AM EDT Office Visit [facility] [address] [place] [address] Brittany Saldana MD [address] [place] [address] documented as of this encounter Visit Diagnoses Not on filedocumented in this encounter Additional Health Concerns Assessment Noted Time PHQ-9 Depression Total Score: 4 09/06/20 11:30 AM EDT documented as of this encounter Care Teams Hospitality Associate Relationship Specialty Start Date End Date Brittany Saldana MD [address] [place] [address] PCP - General Family Medicine 05/08/20 Darrin Hernandez FNP [address] [place] [address] Nurse Practitioner Family Medicine 10/19/23 documented as of this encounter
--- OUTSIDE RECORDS SUMMARY | 2025-02-21 13:27 | XMS_ITS | Encounter Summary ---
Author Organization [employer] Address [address] [place] [address] 7 [place] [address] Care Team Providers Care Cosmetic Account Coordinator Name Role Phone Brittany Saldana MD Primary Care Provider + Darrin Hernandez Unavailable Unavailable Reason for Visit * Reason Onset Date Comments Med Refill 05/20/2024 Encounter Details Date Type Department Care Team (Late st Contact Info) Description 05/20/2024 Refill [facility] [address] [place] [address] Darrin Hernandez FNP Social History Tobacco Use [...] EDT Office Visit [facility] [address] [place] [address] Eb Merino MD [address] [place] [address] 03/20/2025 1:15 PM EDT Office Visit [address] [address] Brandon Caballero MD [address] [place] [address] 04/12/2025 11:45 AM EDT Office Visit [address] [address] Brittany Saldana MD [address] [place] [address] documented as of this encounter Goals Goal [...] documented as of this encounter Care Teams Cosmetic Account Coordinator Relationship Specialty Start Date End Date Brittany Saldana MD [address] [place] [address] PCP - General Family Medicine 05/08/20 Darrin Hernandez FNP [address] [place] [address] Nurse Practitioner Family Medicine 10/19/23 documented as of this encounter
--- OUTSIDE RECORDS SUMMARY | 2025-02-21 13:27 | XMS_ITS | Encounter Summary ---
Author Organization [employer] Address [address] [place] [address] 7 [place] [address] Care Team Providers Care Civil Engineering Teacher Name Role Phone Brittany Saldana MD Primary Care Provider + Darrin Hernandez Unavailable Unavailable Reason for Visit * Reason Onset Date Comments r/s appt 12/24/2022 Encounter Details Date Type Department Care Team (Late st Contact Info) Description 12/24/2022 Telephone [facility] [address] [place] [address] Brittany Saldana MD [address] [place] [address] r/s appt Social History Tobacco Use Types [...] states his ride was not there ontime. 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 Please contact pt at [phone] documented in this encounter Plan of Treatment Upcoming Encounters Date Type Department Care Team (Late st Contact Info) Description 03/16/2025 2:00 PM EDT Office Visit [facility] [address] [place] [address] Eb Merino MD [address] [place] [address] 03/20/2025 1:15 PM EDT Office Visit [address] [address] Brandon Caballero MD [address] [place] [address] 04/12/2025 11:45 AM EDT Office Visit [address] [address] Brittany Saldana MD [address] [place] [address] documented as of this encounter Visit Diagnoses Not on filedocumented in this encounter Additional Health Concerns Assessment Noted Time PHQ-9 Depression Total Score: 9 11/05/20 22 9:37 AM EST documented as of this encounter Care Teams Civil Engineering Teacher Relationship Specialty Start Date End Date Brittany Saldana MD [address] [place] [address] PCP - General Family Medicine 05/08/20 Darrin Hernandez FNP [address] [place] [address] Nurse Practitioner Family Medicine 10/19/23 documented as of this encounter
--- OUTSIDE RECORDS SUMMARY | 2025-02-21 13:27 | XMS_ITS | Encounter Summary ---
Author Organization [employer] Address [address] [place] [address] [address] [place] [address] Care Team Providers Care Music Coordinator Name Role Phone Brittany Saldana MD Primary Care Provider + Darrin Hernandez Unavailable Unavailable Reason for Visit * Reason Onset Date Comments Med Refill 04/16/2024 Encounter Details Date Type Department Care Team (Late st Contact Info) Description 04/16/2024 Refill [facility] [address] [place] [address] Darrin Hernandez FNP PTSD (post-traumatic stress disorder) [...] Description 03/16/2025 2:00 PM EDT Office Visit [facility] [address] [place] [address] Eb Merino MD [address] [place] [address] 03/20/2025 1:15 PM EDT Office Visit [address] [address] Brandon Caballero MD [address] [place] [address] 04/12/2025 11:45 AM EDT Office Visit [address] [address] Brittany Saldana MD [address] [place] [address] documented as of this encounter Goals Goal Patient Goal Type Associated Problems Recent Progress Patient-Stated? Author Blood Pressure < 140/90 Blood Pressure 136/62(2024 11:12 AM EDT) No Venkatesh Skinner, [place] Hemoglobin A1c < 7 Result Component 5.1(01/23/202 5 11:19 AM EST) Veknatesh Mccann, [place] documented as of this encounter Visit Diagnoses Diagnosis PTSD (post-traumatic stress disorder) Posttraumatic stress disorder documented in this encounter Additional Health Concerns Assessment Noted Time PHQ-9 Depression Total Score: 4 03/06/20 24 2:22 PM EDT documented as of this encounter Care Teams Music Coordinator Relationship Specialty Start Date End Date Brittany Saldana MD [address] [place] [address] PCP - General Family Medicine 05/08/20 Darrin Hernandez FNP [address] [place] [address] Nurse Practitioner Family Medicine 10/19/23 documented as of this encounter
--- OUTSIDE RECORDS SUMMARY | 2025-02-21 13:27 | XMS_ITS | Patient Health Record ---
Author Organization [employer] Address [address] [facility] [address] [place] [address] Support Name Relationship Address Phone Dane Calles Guarantor Unknown [phone] Allergies Allergen (clinical drug ingredient) Drug/Non Drug [...] Disorder due to type 2 diabetes mellitus (136374901) Type 2 diabetes mellitus with unspecified complications (E11.8) Active confirmed Problem Morbid obesity (disorder) (728757941) Morbid (severe) obesity due to excess calories (E66.01) Active confirmed Problem Mixed hyperlipidemia (704486579) Mixed hyperlipidemia (E78.2) Active confirmed Problem Alcohol dependence (39505561) Alcohol dependence, uncomplicated (F10.20) Active confirmed Problem Mild recurrent major depression (40026412) Major depressive disorder, recurrent, mild (F33.0) Active confirmed Problem 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, intractable, 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) Active confirmed Problem 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, intractable, without status epilepticus (G40.219) Active confirmed Problem Obstructive sleep apnea syndrome (disorder) (69906226) Obstructive sleep apnea (adult) (pediatric) (G47.33) Active confirmed Problem Essential hypertension (76460044) Essential (primary) hypertension (I10) Active confirmed Problem Gastro-esophageal reflux disease without esophagitis (017870671) Gastro-esophageal reflux disease without esophagitis (K21.9) Active confirmed Problem Neurofibromatosis (45335695) Neurofibromatosis , 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) Active confirmed Problem Somnolence (48484567) Somnolence (R40.0) Active confirmed Problem Attention deficit hyperactivity disorder, predominantly inattentive type (disorder) (82370014) Attention and concentration deficit (R41.840) Active confirmed Problem Body mass index 40+ - severely obese (672911527) Body mass index (BMI) 40.0-44.9, adult (Z68.41) Active confirmed Problem Lower urinary tract symptoms due to benign prostatic hypertrophy (17056892201463) Benign prostatic hyperplasia with lower urinary tract symptoms (N40.1) Active confirmed Problem Morbid obesity (875455690) Morbid obesity (E66.01) Active confirmed Plan Of Treatment No Information Medical (General) History Medical History History ICD Code hypertension, benign acid reflux BPH see Urology Attention deficit disorder Neurofibromatosis complex partial seizure disorder Surgical History Surgery Date(Month/Year) Umblical hernia repair 2004 Tonsellectomy Cyst in throat removed
--- OUTSIDE RECORDS SUMMARY | 2025-02-21 13:28 | XMS_ITS | Encounter Summary ---
Author Organization [employer] Address [address] [place] [address] 7 [place] [address] Care Team Providers Care Milk Pickup Truck Driver Name Role Phone Brittany Saldana MD Primary Care Provider + Darrin Hernandez Unavailable Unavailable Reason for Visit * Reason Comments Med Refill Encounter Details Date Type Department Care Team (Late st Contact Info) Description 07/25/2024 Refill [facility] [address] [place] [address] Brandon Caballero MD [address] [place] [address] Type 2 diabetes mellitus without complication, without long-term current use of insulin ([facility]) Social History Tobacco Use Types Packs/Day Years [...] Description 03/16/2025 2:00 PM EDT Office Visit [facility] [address] [place] [address] Eb Merino MD [address] [place] [address] 03/20/2025 1:15 PM EDT Office Visit [address] [address] Brandon Caballero MD [address] [place] [address] 04/12/2025 11:45 AM EDT Office Visit [address] [address] Brittany Saldana MD [address] [place] [address] documented as of this encounter Goals Goal [...] complication, without long-term current use of insulin ([facility]) documented in this encounter Additional Health Concerns Assessment Noted Time PHQ-9 Depression Total Score: 4 03/06/20 24 2:22 PM EDT documented as of this encounter Care Teams Milk Pickup Truck Driver Relationship Specialty Start Date End Date Brittany Saldana MD [address] [place] [address] PCP - General Family Medicine 05/08/20 Darrin Hernandez FNP [address] [place] [address] Nurse Practitioner Family Medicine 10/19/23 documented as of this encounter
--- OUTSIDE RECORDS SUMMARY | 2025-02-21 13:28 | XMS_ITS | Encounter Summary ---
Author Organization [employer] Address [address] [place] [address] 7 [place] [address] Care Team Providers Care Outside Sales Account Executive Name Role Phone Brittany Saldana MD Primary Care Provider + Darrin Hernandez Unavailable Unavailable Reason for Visit * Reason Onset Date Comments Med Refill 02/08/2024 Encounter Details Date Type Department Care Team (Late st Contact Info) Description 02/08/2024 Refill [facility] [address] [place] [address] Brittany Saldana MD [address] [place] [address] Social History Tobacco Use Types Packs/Day Years [...] the past 12 months, has t he [employer], gas, oil or water company threatened to [...] Description 03/16/2025 2:00 PM EDT Office Visit [facility] [address] [place] [address] Eb Merino MD [address] [place] [address] 03/20/2025 1:15 PM EDT Office Visit [address] [address] Barndon Caballero MD [address] [place] [address] 04/12/2025 11:45 AM EDT Office Visit [facility] [address] [place] [address] Brittany Saldana MD [address] [place] [address] documented as of this encounter Visit Diagnoses Not on filedocumented in this encounter Additional Health Concerns Assessment Noted Time PHQ-9 Depression Total Score: 1 12/27/19 1:53 PM EST documented as of this encounter Care Teams Outside Sales Account Executive Relationship Specialty Start Date End Date Brittany Saldana MD [address] [place] [address] PCP - General Family Medicine 05/08/20 Darrin Hernandez FNP [address] [place] [address] Nurse Practitioner Family Medicine 10/19/23 documented as of this encounter
--- OUTSIDE RECORDS SUMMARY | 2025-02-21 13:28 | XMS_ITS | Encounter Summary ---
Author Organization [employer] Address [address] [place] [address] 7t [place] [address] Care Team Providers Care Bss Solution Architect Name Role Phone Brittany Saldana MD Primary Care Provider + Darrin Hernandez Unavailable Unavailable Reason for Visit * Reason Onset Date Comments Durable Medical Equipment 01/05/2023 Encounter Details Date Type Department Care Team (Late st Contact Info) Description 01/05/2023 Telephone [facility] [address] [place] [address] Brittany Saldana MD [address] [place] [address] Durable Medical Equipment Social History Tobacco Use [...] * Telephone Encounter - Lisa Lara - 01/05/2023 12:50 PM EST New script [...] If any questions please contact pt at [phone] documented in this encounter Plan of Treatment Upcoming Encounters Date Type Department Care Team (Late st Contact Info) Description 03/16/2025 2:00 PM EDT Office Visit [facility] [address] [place] [address] Eb Merino MD [address] [place] [address] 03/20/2025 1:15 PM EDT Office Visit [facility] [address] [place] [address] Brandon Caballero MD [address] [place] [address] 04/12/2025 11:45 AM EDT Office Visit [facility] [address] [place] [address] Brittany Saldana MD [address] [place] [address] documented as of this encounter Visit Diagnoses Not on filedocumented in this encounter Additional Health Concerns Assessment Noted Time PHQ-9 Depression Total Score: 4 12/31/19 23 10:56 AM EST documented as of this encounter Care Teams Bss Solution Architect Relationship Specialty Start Date End Date Brittany Saldana MD [address] [place] [address] PCP - General Family Medicine 05/08/20 Darrin Hernandez FNP [address] [place] [address] Nurse Practitioner Family Medicine 10/19/23 documented as of this encounter
--- OUTSIDE RECORDS SUMMARY | 2025-02-21 13:28 | XMS_ITS | Encounter Summary ---
Author Organization [employer] Address [address] [place] [address] 7 [place] [address] Care Team Providers Care Director Biologics Name Role Phone Brittany Saldana MD Primary Care Provider + Darrin Hernandez Unavailable Unavailable Reason for Visit * Reason Onset Date Comments Durable Medical Equipment 02/20/2025 DME Or ron: Compression Stockings Encounter Details Date Type Department Care Team (Late st Contact Info) Description 02/20/2025 Telephone [facility] [address] [place] [address] Brittany Saldana MD [address] [place] [address] Durable Medical Equipment (DME Order: Compression Stockings) Social History Tobacco Use Types Packs/Day Years [...] * Telephone Encounter - Sowmya Traore - 02/20/2025 1:47 PM EDT DME RX for Compression stockings generated and placed on providers desk for signature. documented in this encounter Plan of Treatment Upcoming Encounters Date Type Department Care Team (Late st Contact Info) Description 03/16/2025 2:00 PM EDT Office Visit [facility] [address] [place] [address] Eb Merino MD [address] [place] [address] 03/20/2025 1:15 PM EDT Office Visit [facility] [address] [place] [address] Brandon Caballero MD [address] [place] [address] 04/12/2025 11:45 AM EDT Office Visit [facility] [address] [place] [address] Brittany Saldana MD [address] [place] [address] documented as of this encounter Goals Goal [...] documented as of this encounter Care Teams Director Biologics Relationship Specialty Start Date End Date Brittany Saldana MD [address] [place] [address] PCP - General Family Medicine 05/08/20 Darrin Hernandez FNP [address] [place] [address] Nurse Practitioner Family Medicine 10/19/23 documented as of this encounter
--- OUTSIDE RECORDS SUMMARY | 2025-02-21 13:28 | XMS_ITS | Encounter Summary ---
Author Organization [employer] Address [address] [place] [address] 7 [place] [address] Care Team Providers Care Linux Administrator Name Role Phone Brittany Saldana MD Primary Care Provider + Darrin Hernandez Unavailable Unavailable Reason for Visit * Reason Onset Date Comments Nurse Triage 02/20/2025 Encounter Details Date Type Department Care Team (Late st Contact Info) Description 02/20/2025 Telephone [facility] 230 [place] [address] Brittany Saldana MD [address] [place] [address] Nurse Triage Social History Tobacco Use Types Packs/Day Years [...] encounter Miscellaneous Notes * Telephone Encounter - Annita Jimenez LPN - 02/20/2025 9:32 AM EDT Triage call returned to patient who reports that he woke up this morning and right ear with decreased hearing. Patient reports that he did flush ear out this morning and had large amount of wax returned. No improvement of hearing. Has no pain no headache no fever. No ongoing discharge from ear. No sinus congestion or sore throat. Disposition returned and patient in agreement with plan. No PCP appts. ASK/M. Appram [facility] tomorrow 02/21/2025 1045am. Protocol Used: Ear - Congestion (Adult) Protocol-Based Disposition: See in Office or Video Visit Today Positive Triage Question: * Patient wants to be seen * All higher-acuity triage questions were negative Care Advice Discussed: * Ear Congestion - Treatment * Reasons To Call Back - Ear pain or fever occurs - You become worse * Telephone Encounter - Moni Garcia - 02/20/2025 9:06 AM EDT Symptom: Hearing Loss Outcome: Talk to a nurse or provider within 15 minutes Reason: Complete loss of hearing in one or both ears The caller accepted this outcome. documented in this encounter Plan of Treatment Upcoming Encounters Date Type Department Care Team (Late st Contact Info) Description 03/16/2025 2:00 PM EDT Office Visit [facility] [address] [place] [address] Eb Merino MD [address] [place] [address] 03/20/2025 1:15 PM EDT Office Visit [address] [address] Brandon Caballero MD [address] [place] [address] 04/12/2025 11:45 AM EDT Office Visit [address] [address] Brittany Saldana MD [address] [place] [address] documented as of this encounter Goals Goal [...] documented as of this encounter Care Teams Linux Administrator Relationship Specialty Start Date End Date Brittany Saldana MD [address] [place] [address] PCP - General Family Medicine 05/08/20 Darrin Hernandez FNP [address] [place] [address] Nurse Practitioner Family Medicine 10/19/23 documented as of this encounter
--- OUTSIDE RECORDS SUMMARY | 2025-02-21 13:28 | XMS_ITS | Encounter Summary ---
Author Organization [employer] Address [address] [place] [address] 7t [place] [address] Care Team Providers Care Material Lister Name Role Phone Brittany Saldana MD Primary Care Provider + Darrin Hernandez Unavailable Unavailable Reason for Visit * Reason Onset Date Comments Durable Medical Equipment 02/17/2023 Encounter Details Date Type Department Care Team (Late st Contact Info) Description 02/17/2023 Telephone [facility] [address] [place] [address] Brittany Saldana MD [address] [place] [address] Durable Medical Equipment Social History Tobacco Use [...] providers signature * Telephone Encounter - Moni Garcia - 02/17/2023 3:04 PM EDT TC from pt requesting a walker with wheels and seat and also a medical alert button . Pt requested to be sent to [facility] . Any questions please contact pt at [phone]. documented in this encounter Plan of Treatment Upcoming Encounters Date Type Department Care Team (Late st Contact Info) Description 03/16/2025 2:00 PM EDT Office Visit [facility] [address] [place] [address] Eb Merino MD [address] [place] [address] 03/20/2025 1:15 PM EDT Office Visit [address] [address] Brandon Caballero MD [address] [place] [address] 04/12/2025 11:45 AM EDT Office Visit [address] [address] Brittany Saldana MD [address] [place] [address] documented as of this encounter Visit Diagnoses Not on filedocumented in this encounter Additional Health Concerns Assessment Noted Time PHQ-9 Depression Total Score: 10 023 10:47 AM EDT documented as of this encounter Care Teams Material Lister Relationship Specialty Start Date End Date Brittany Saldana MD [address] [place] [address] PCP - General Family Medicine 05/08/20 Darrin Hernandez FNP [address] [place] [address] Nurse Practitioner Family Medicine 10/19/23 documented as of this encounter
--- OUTSIDE RECORDS SUMMARY | 2025-02-21 13:28 | XMS_ITS | Encounter Summary ---
Author Organization [employer] Address [address] [place] [address] 7 [place] [address] Care Team Providers Care Temperature Control Inspector Name Role Phone Brittany Saldana MD Primary Care Provider + Darrin Hernandez Unavailable Unavailable Reason for Visit * Reason Onset Date Comments Med Refill 07/23/2024 Encounter Details Date Type Department Care Team (Late st Contact Info) Description 07/23/[address] [facility] [address] [place] [address] [facility] [address] [place] [address] Depression, unspecified depression type Social History Tobacco [...] Description 03/16/2025 2:00 PM EDT Office Visit [facility] [address] [place] [address] Eb Merino MD [address] [place] [address] 03/20/2025 1:15 PM EDT Office Visit [address] [address] Brandon Caballero MD [address] [place] [address] 04/12/2025 11:45 AM EDT Office Visit [address] [address] Brittany Saldana MD [address] [place] [address] documented as of this encounter Goals Goal [...] documented as of this encounter Care Teams Temperature Control Inspector Relationship Specialty Start Date End Date Brittany Saldana MD [address] [place] [address] PCP - General Family Medicine 05/08/20 Darrin Hernandez FNP [address] [place] [address] Nurse Practitioner Family Medicine 10/19/23 documented as of this encounter
--- OUTSIDE RECORDS SUMMARY | 2025-02-21 13:28 | XMS_ITS | Encounter Summary ---
Author Organization [employer] Address [address] [place] [address] 7 [place] [address] Care Team Providers Care Floral Designer Name Role Phone Brittany Saldana MD Primary Care Provider + Darrin Hernandez Unavailable Unavailable Reason for Visit * Reason Onset Date Comments Med Refill 06/11/2024 Encounter Details Date Type Department Care Team (Late st Contact Info) Description 06/11/2024 Refill [facility] [address] [place], [place] [phone] Brittany Saldana MD [address] [place] [address] Social History Tobacco Use Types Packs/Day Years [...] Visit [facility] [address] [place] [address] Eb Merino MD [address] [place] [address] 03/20/2025 1:15 PM EDT Office Visit [address] [address] Brandon Caballero MD [address] [place] [address] 04/12/2025 11:45 AM EDT Office Visit [address] [address] Brittany Saldana MD [address] [place] [address] documented as of this encounter Goals Goal [...] documented as of this encounter Care Teams Floral Designer Relationship Specialty Start Date End Date Brittany Saldana MD [address] [place] [address] PCP - General Family Medicine 05/08/20 Darrin Hernandez FNP [address] [place] [address] Nurse Practitioner Family Medicine 10/19/23 documented as of this encounter
--- OUTSIDE RECORDS SUMMARY | 2025-02-21 13:28 | XMS_ITS | Encounter Summary ---
Author Organization [employer] Address [address] [place] [address] 7 [place] [address] Care Team Providers Care Grid Trimmer Name Role Phone Brittany Saldana MD Primary Care Provider + Darrin Hernandez Unavailable Unavailable Reason for Visit * Reason Onset Date Comments Med Refill 06/19/2024 Encounter Details Date Type Department Care Team (Late st Contact Info) Description 06/19/2024 Refill [facility] 230 [place], [place] [phone] Brittany Saldana MD [address] [place] [address] Alcoholism (CMS/HCC); Essential (primary) hypertension Social History [...] Description 03/16/2025 2:00 PM EDT Office Visit [facility] [address] [place] [address] Eb Merino MD [address] [place] [address] 03/20/2025 1:15 PM EDT Office Visit [address] [address] Brandon Caballero MD [address] [place] [address] 04/12/2025 11:45 AM EDT Office Visit [address] [address] Brittany Saldana MD [address] [place] [address] documented as of this encounter Goals Goal [...] documented as of this encounter Care Teams Grid Trimmer Relationship Specialty Start Date End Date Brittany Saldana MD [address] [place] [address] PCP - General Family Medicine 05/08/20 Darrin Hernandez FNP [address] [place] [address] Nurse Practitioner Family Medicine 10/19/23 documented as of this encounter
--- OUTSIDE RECORDS SUMMARY | 2025-02-21 13:28 | XMS_ITS | Encounter Summary ---
Author Organization [employer] Address [address] [place] [address] 7 [place] [address] Care Team Providers Care River Rat Name Role Phone Brittany Saldana MD Primary Care Provider + Darrin Hernandez Unavailable Unavailable Reason for Visit * Reason Onset Date Comments Med Refill 01/09/2025 Encounter Details Date Type Department Care Team (Late st Contact Info) Description 01/09/2025 Refill [facility] [address] [place], [place] [phone] Brittany Saldana MD [address] [place] [address] Social History Tobacco Use Types Packs/Day Years [...] Description 03/16/2025 2:00 PM EDT Office Visit [facility] [address] [place] [address] Eb Merino MD [address] [place] [address] 03/20/2025 1:15 PM EDT Office Visit [address] [address] Brandon Caballero MD [address] [place] [address] 04/12/2025 11:45 AM EDT Office Visit [address] [address] Brittany Saldana MD [address] [place] [address] documented as of this encounter Goals Goal [...] documented as of this encounter Care Teams River Rat Relationship Specialty Start Date End Date Brittany Saldana MD [address] [place] [address] PCP - General Family Medicine 05/08/20 Darrin Hernandez FNP [address] [place] [address] Nurse Practitioner Family Medicine 10/19/23 documented as of this encounter
--- OUTSIDE RECORDS SUMMARY | 2025-02-21 13:28 | XMS_ITS | Encounter Summary ---
Author Organization [employer] Address [address] [place] [address] 7t [place] [address] Care Team Providers Care Supervisor Network Control Operators Name Role Phone Brittany Saldana MD Primary Care Provider + Darrin Hernandez Unavailable Unavailable Encounter Details Date Type Department Care Team (Late st Contact Info) Description 10/10/2024 Abstract [facility] 230 [place] [address] Brittany Saldana MD [address] [place] [address] Social History Tobacco Use Types Packs/Day Years [...] Description 03/16/2025 2:00 PM EDT Office Visit [facility] [address] [place] [address] Eb Merino MD [address] [place] [address] 03/20/2025 1:15 PM EDT Office Visit [address] [address] Brandon Caballero MD [address] [place] [address] 04/12/2025 11:45 AM EDT Office Visit [address] [address] Brittany Saldana MD [address] [place] [address] documented as of this encounter Goals Goal Patient Goal Type Associated Problems Recent Progress Patient-Stated? Author Blood Pressure < 140/90 Blood Pressure 136/62(2024 11:12 AM EDT) No Venkatesh Skinner, PharmD Hemoglobin A1c < 7 Result Component 5.1(01/23/202 5 11:19 AM EST) Venkatesh Mccann, CarlosD documented as of this encounter Visit Diagnoses Not on filedocumented in this encounter Additional Health Concerns Assessment Noted Time PHQ-9 Depression Total Score: 4 03/06/20 24 2:22 PM EDT documented as of this encounter Care Teams Supervisor Network Control Operators Relationship Specialty Start Date End Date Brittany Saldana MD [address] [place] [address] PCP - General Family Medicine 05/08/20 Darrin Hernandez FNP [address] [place] [address] Nurse Practitioner Family Medicine 10/19/23 documented as of this encounter
--- OUTSIDE RECORDS SUMMARY | 2025-02-21 13:28 | XMS_ITS | Encounter Summary ---
Author Organization [employer] Address [address] [place] [address] 7[address] [place] [address] Care Team Providers Care Ecologist Name Role Phone Brittany Saldana MD Primary Care Provider + Darrin Hernandez Unavailable Unavailable Encounter Details Date Type Department Care Team (Late st Contact Info) Description 02/20/2025 Telephone [facility] MEDICINE [address] [place] [address] Brittany Saldana MD [address] [place] [address] Social History Tobacco Use Types Packs/Day Years [...] encounter Miscellaneous Notes * Telephone Encounter - Adelina Stein RN - 02/20/2025 10:01 AM EDT Called pt. He states he already received a call from a nurse and he has an appt. Tomorrow for someone to look at his ear. States it feels clogged and he cannot hear out of right ear. Pt. Has appt. [facility] team at 1045am on 02/21/25. documented in this encounter Plan of Treatment Upcoming Encounters Date Type Department Care Team (Late st Contact Info) Description 03/16/2025 2:00 PM EDT Office Visit [facility] MEDICINE [address] [place] [address] Eb Merino MD [address] [place] [address] 03/20/2025 1:15 PM EDT Office Visit [facility] MED[facility]INE [address] [place] [address] Brandon Caballero MD [address] [place] [address] 04/12/2025 11:45 AM EDT Office Visit [facility] MEDICINE [address] [place] [address] Brittany Saldana MD [address] [place] [address] documented as of this encounter Goals Goal [...] documented as of this encounter Care Teams Ecologist Relationship Specialty Start Date End Date Brittany Saldana MD [address] [place] [phone] PCP - General Family Medicine 05/08/20 Darrin Hernandez FNP [address] [place] [address] Nurse Practitioner Family Medicine 10/19/23 documented as of this encounter
--- OUTSIDE RECORDS SUMMARY | 2025-02-21 13:28 | XMS_ITS | Encounter Summary ---
Author Organization [employer] Address [address] [place] [address] 7 [place] [address] Care Team Providers Care Head Turning Machine Operator Name Role Phone Brittany Saldana MD Primary Care Provider + Darrin Hernandez Unavailable Unavailable Reason for Visit * Reason Onset Date Comments Referral 09/24/2023 Encounter Details Date Type Department Care Team (Late st Contact Info) Description 09/24/2023 Telephone [facility] MEDICINE [address] [place] [address] Brittany Saldana MD [address] [place] [address] Referral Social History Tobacco Use Types Packs/Day [...] 9:02 AM EST Tc from sri with [facility] requesting a new order for Occupational therapy for weakness in hands. States they received the referral for Occupational therapy but dx says hip pain. Please fax to [phone] Any questions, please contact sri at [phone] documented in this encounter Plan of Treatment Upcoming Encounters Date Type Department Care Team (Late st Contact Info) Description 03/16/2025 2:00 PM EDT Office Visit [facility]INE [address] [place] [address] Eb Merino MD [address] [place] [address] 03/20/2025 1:15 PM EDT Office Visit [facility] [address] [place] [address] Brandon Caballero MD [address] [place] [address] 04/12/2025 11:45 AM EDT Office Visit [facility] MED[facility] [address] [place] [address] Brittany Saldana MD [address] [place] [address] documented as of this encounter Visit Diagnoses Not on filedocumented in this encounter Additional Health Concerns Assessment Noted Time PHQ-9 Depression Total Score: 4 09/06/20 23 11:30 AM EDT documented as of this encounter Care Teams Head Turning Machine Operator Relationship Specialty Start Date End Date Brittany Saldana MD [address] [place] [phone] PCP - General Family Medicine 05/08/20 Darrin Hernandez FNP [address] [place] [address] Nurse Practitioner Family Medicine 10/19/23 documented as of this encounter
--- OUTSIDE RECORDS SUMMARY | 2025-02-21 13:28 | XMS_ITS | Encounter Summary ---
Author Organization [employer] Address [address] [place] [address] 7 [place] [address] Care Team Providers Care Commercial Artist Lettering Name Role Phone Brittany Saldana MD Primary Care Provider + Darrin Hernandez Unavailable Unavailable Reason for Visit * Reason Onset Date Comments Med Refill 08/11/2024 Encounter Details Date Type Department Care Team (Late st Contact Info) Description 08/11/2024 Refill [facility] MEDICINE [address] [place] [address] Brittany Saldana MD [address] [place] [address] Mild intermittent asthma without complication Social History [...] 03/16/2025 2:00 PM EDT Office Visit [facility] MED[facility]INE [address] [place] [address] Eb Merino MD [address] [place] [address] 03/20/2025 1:15 PM EDT Office Visit [address] [address] Brandon Caballero MD [address] [place] [address] 04/12/2025 11:45 AM EDT Office Visit [address] [address] Brittany Saldana MD [address] [place] [address] documented as of this encounter Goals Goal Patient Goal Type Associated Problems Recent Progress Patient-Stated? Author Blood Pressure < 140/90 Blood Pressure 136/62(2024 11:12 AM EDT) Venkatesh Mccann, [place] Hemoglobin A1c < 7 Result Component 5.1( 5 11:19 AM EST) No Venkatesh Skinner PharmD documented as of this encounter Visit Diagnoses Diagnosis Mild intermittent asthma without complication documented in this encounter Additional Health Concerns Assessment Noted Time PHQ-9 Depression Total Score: 4 03/06/20 24 2:22 PM EDT documented as of this encounter Care Teams Commercial Artist Lettering Relationship Specialty Start Date End Date Brittany Saldana MD [address] [place] [address] PCP - General Family Medicine 05/08/20 Darrin Hernandez FNP [address] [place] [address] Nurse Practitioner Family Medicine 10/19/23 documented as of this encounter
--- OUTSIDE RECORDS SUMMARY | 2025-02-21 13:28 | XMS_ITS | Clinical Summary ---
Author Organization [employer] Address [address] [place] [address] 7 [place] [address] Care Team Providers Care Senior Javascript Engineer Name Role Phone Brittany Saldana MD [...] complication, without long-term current use of insulin ([facility]) Use 1 lancet to monitor blood glucose twice daily 100 each 02/24/20 23 Active ARIPiprazole (Abilify) 2 MG tablet Take 1 tablet (2 mg) by mouth Once per day. 90 tablet 03/06/20 24 Active buPROPion XL (Wellbutrin XL) 300 MG 24 hr tablet Take 1 tablet (300 mg) by mouth in the morning. 90 tablet 03/06/20 24 Active thiamine (Vitamin B-1) 100 MG tablet 1 tab po/d 30 tablet 03/30/20 24 Active cyanocobalamin (Vitamin B-12) 1000 MCG tablet TAKE 1 TABLET BY MOUTH EVERY MORNING 30 tablet 03/30/20 24 Active docusate sodium (Colace) 100 MG [...] g by mouth if needed each day (constipatio n >1d). 527 g 08/11/20 24 025 Active glucose blood (NexPlanaruch Ultra) test stripIndication s:Type 2 diabetes mellitus without complication, without long-term current use of insulin ([facility]) TEST BLOOD SUGAR TWICE DAILY 100 strip 11 08/29/20 24 Active Multiple Vitamins-Minera ls (CertaVite/Anti oxidants) tabletIndicatio ns:Essential (primary) hypertension Take 1 tablet by mouth in the morning. 30 tablet 09/22/20 24 Active atorvastatin (Lipitor) 20 MG tablet TAKE ONE TABLET BY MOUTH AT BEDTIME (FOR CHOLESTEROL) 30 tablet 11/20/19 25 Active gabapentin (Neurontin) 300 MG capsuleIndicati ons:Type 2 diabetes mellitus without complication, without long-term current use of insulin ([facility]) TAKE ONE CAPSULE BY MOUTH EVERY MORNING, AT NOON AND AT BEDTIME 90 capsule 11/20/19 25 Active traZODone (Desyrel) 100 MG tabletIndicatio ns:Depression, unspecified depression type TAKE TWO TABLETS BY MOUTH AT BEDTIME 60 tablet 11/20/19 25 Active albuterol 108 (90 Base) MCG/ACT inhalerIndicati ons:Mild intermittent asthma without complication INHALE 2 PUFFS EVERY 4 TO 6 HOURS NEEDED 8.5 g 01/23/20 25 Active lisinopril 10 MG tabletIndicatio ns:Primary hypertension Take 1 tablet (10 mg) by mouth Once per day. 30 tablet 01/23/20 25 026 Active methylphenidate ER (Concerta) 36 MG CR tablet TAKE 1 TABLET BY MOUTH EVERY DAY IN THE MORNING DO NOT BREAK, CRUSH, DISSOLVE OR CHEW 30 tablet 02/13/20 25 Active fluticasone (Flonase) 50 MCG/ACT nasal sprayIndication s:Chronic rhinitis USE 1-2 SPRAYS EACH NOSTRIL ONCE DAILY NEEDED 16 g 3 02/14/20 25 Active melatonin 5 MG tabletIndicatio ns:Acute insomnia TAKE ONE TABLET BY MOUTH AT BEDTIME 30 tablet 3 02/14/20 25 Active predniSONE (Deltasone) 20 MG tabletIndicatio ns:Sudden right hearing loss Take 1 tablet (20 mg) by mouth Once per day for 10 days. 10 tablet 02/22/20 25 025 Active melatonin 5 MG tabletIndicatio ns:Acute insomnia TAKE 1 TABLET BY MOUTH AT BEDTIME 90 tablet 1 06/15/20 24 025 Discontinued fluticasone (Flonase) 50 MCG/ACT nasal sprayIndication s:Chronic rhinitis USE 1-2 SPRAYS EACH NOSTRIL ONCE DAILY NEEDED 16 g 3 10/20/20 24 025 Discontinued methylphenidate ER (Concerta) 36 MG CR tablet TAKE 1 TABLET BY MOUTH EVERY DAY IN THE MORNING DO NOT BREAK, CRUSH, DISSOLVE OR CHEW 30 tablet 01/09/20 25 025 Discontinued(Re order (will not trigger notification to Pharmacy)) Active [...] AM EDT): - obtain holter monitor from [facility] ordered by weight management program - will [...] exercise, life style modifications, diet, referral to nutrition specialist. Discussed re lower calorie intake, increase [...] and fu with . Order TSH/testosterone levels, psychiatric technician assistant input appreciated. Iliopsoas bursitis of left hip [...] IZs -RSV pending not available today in [facility] pharmacy Advise to have it at [...] management. For any issues or concerns contact [facility]. Continue with therapist as usual. I [...] he he was not contacted yet, per transportation maintenance specialist, Kalyan reid contact him on 05/11/23 at 9:47 am, but he didn't responded, vm was left. I provide him with Kalyan Reid information for him to follow up, he agreed. Provided education around integrated medicine and the options of follow up BE's as needed. Provided contact information should questions or concerns arise. Plan: Narendra will engage in effective coping mechanisms provided at least 1 per day for 6 months. He will be Contacting [facility] for him to engage in Ind. Therapy [...] treatment engagement. PLAN: 1. Follow up with [facility]: Recommended for follow-up: during AUD appts. 2. [...] treatment engagement. PLAN: 1. Follow up with [facility]: Recommended for follow-up: during AUD appts. 2. Patient goal is learn to manage sxs and improve his mental health. 3. Behavioral Recommendations a. Ind. Therapy b. Self-development c. [facility] support as needed. Assessment & Plan (03/25/2023 [...] BP records next week and drop at desk clerks supervisor for me to review. Continue Lisinopril 7.5 [...] Encounters Date Type Department Care Team Description 02/21/2025 10:45 AM EDT Office Visit [address] [address] iXao Hunter NP Sudden right hearing loss (Primary Dx); Elevated blood pressure reading in office with diagnosis of hypertension 02/21/2025 Travel 02/20/2025 Patient Outreach [address] [phone] Jose Chang Recovery Supports 02/20/[address] [phone] Brittany Saldana MD Durable Medical Equipment (DME Order: Compression Stockings) 02/20/[address] [phone] Brittany Saldana MD 02/20/[address] [address] Brittany Saldana MD Nurse Triage 02/14/2025 9:00 AM EDT Office Visit [facility] [place] [address] Migue Stephens MD Alcohol use disorder, severe, in sustained remission (CMS/HCC) (Primary Dx) 02/14/2025 Travel 02/12/2025 Refill [facility] [place] [place] [address] Brittany Saldana MD Chronic rhinitis; Acute insomnia 02/12/2025 Refill [facility] [address] [place] [address] Brittany Saldana MD 02/07/2025 10:30 AM EDT Office Visit [facility] [place] [address] Migue Stephens MD Alcohol use disorder, severe, in sustained remission (CMS/HCC) (Primary Dx) 02/07/2025 Travel 02/06/2025 Patient Outreach [facility] [place] [address] Jose Chang Recovery Supports 01/30/2025 1:15 PM EDT Office Visit [facility] [place] [address] Brandon Caballero MD Alcohol use disorder, severe, in sustained remission (CMS/HCC) (Primary Dx) 01/30/2025 Patient Outreach [facility] [place] [address] Jose Chang Recovery Supports 01/30/2025 Travel 01/24/2025 10:30 AM EDT [address] [place] [address] Migue Stephens MD Alcohol use disorder, severe, in sustained remission (CMS/HCC) (Primary Dx) 01/24/2025 Travel 01/23/2025 Patient Outreach [facility] [place] [address] Jose Chang Recovery Supports 01/23/2025 Travel 01/22/2025 11:30 AM EDT Office Visit [facility] MEDICINE [address] [place] [address] Patrick, Alexus, PREVENTION COORDINATOR Nodule of skin of abdomen (Primary Dx); Primary hypertension 01/22/2025 Travel 01/20/2025 Travel 2025 Refill [facility] MEDICINE [address] [place] [address] Brittany Saldana MD Mild intermittent asthma without complication 2025 Telephone [facility] MEDICINE [address] [place] [address] Brittany Saldana MD Nurse Triage 01/17/2025 10:00 AM EST Office Visit [facility] [address] [place] [address] Migue Stephens MD Alcohol use disorder, severe, in sustained remission (CMS/HCC) (Primary Dx) 01/17/2025 Telephone [facility] MEDICINE [address] [place] [address] Brittany Saldana MD 01/17/2025 Patient Outreach [facility] MED[facility]INE [address] [place] [address] Jose Chang Recovery Supports 01/17/2025 Travel 01/16/2025 Patient Outreach [facility] [address] [place] [address] Jose Chang Recovery Supports 01/11/2025 Telephone [facility] [place] [address] Brittany Saldana MD Appointment Request 01/09/2025 Refill [facility] [place] [address] Brittany Saldana MD 01/09/2025 Patient Outreach [facility] MEDICINE [address] [place] [address] Rolando Amos Recovery Supports 01/08/2025 Refill [facility] MEDICINE [address] [place] [address] Brittany Saldana MD 01/04/2025 Telephone [facility] [address] [facility] [place] [address] Brittany Saldana MD May recall 12/27/2024 10:30 AM EST Office Visit [facility] [place] [address] Mgiue Stephens MD Alcohol use disorder, severe, in sustained remission (CMS/HCC) (Primary Dx) 12/27/2024 Travel 12/26/2024 Patient [place] [address] Cristian Otero 12/22/2024 4:00 PM EST [place] [address] Eb Merino MD Hemangioma of skin (Primary Dx); Neurofibromatosis (nonmalignant) (CMS/HCC) 12/22/2024 Travel 12/21/2024 Travel 12/20/2024 [place] [address] Brittany Saldana MD Durable Medical Equipment (DME Reuqest: [facility] bed) 12/19/2024 1:15 PM EST Office [place] [address] Brandon Caballero MD Alcohol use disorder, severe, in sustained remission (CMS/HCC) (Primary Dx) 12/19/2024 Patient [place] [address] Jose Chang Recovery Supports 12/19/2024 Travel 12/13/2024 10:30 AM EST [facility] Visit [facility] [place] [address] Migue Stephens MD Alcohol use disorder, severe, in sustained remission (CMS/HCC) (Primary Dx) 12/13/2024 Travel 12/12/2024 Patient Outreach [facility] [place] [address] Ted Olvera Recovery Supports 12/12/2024 Travel 12/07/2024 10:30 AM EST Office Visit [facility] [place] [place] [address] Brittany Saldana MD Essential (primary) hypertension (Primary Dx); Recurrent major depressive disorder, in partial remission (CMS/HCC); Neurofibromatosis, type 1 (von Recklinghausen's disease) ([facility]); Type 2 diabetes mellitus without complication, without long-term current use of insulin ([facility]); Lumbar radiculopathy, chronic; Polyneuropathy associated with underlying disease ([facility]) 12/07/2024 Travel 12/05/2024 Patient Outreach [facility] [address] [place] [address] Ted Olvera Recovery Supports 11/30/[address] [phone] Pippa Aldrich, mattress and foundation sewer Question 11/30/2024 Orders Only [address] [phone] Brittany Saldana MD 11/29/2024 10:00 AM EST Office Visit [address] [phone] Migue Stephens MD Alcohol use disorder, severe, in sustained remission ([facility]) (Primary Dx) 11/29/2024 Travel 11/28/2024 Patient Outreach [facility] [address] [place] [address] Jose Chang Recovery Supports from Last 3 Months Immunizations Name Administration [...] Mass Index 24.62 02/21/2025 10:40 AM EDT Plan of Treatment Upcoming Encounters Date Type Department Care Team (Late st Contact Info) Description 03/16/2025 2:00 PM EDT Office Visit [address] [address] Eb Merino MD [address] [place] [address] 03/20/2025 1:15 PM EDT Office Visit [address] [address] Brandon Caballero MD [address] [place] [address] 04/12/2025 11:45 AM EDT Office Visit [address] [address] Brittany Saldana MD [address] [place] [address] Health Maintenance Due Date Last Done Comments CT Colonography 1957 Dental Oral Exam 1957 Dental Prophylaxis 1957 Dental X-Ray: Bitewings 1957 Dental X-Ray: Full Mouth 1957 FIT DNA/Cologuard 1957 FIT 1957 FOBT 1957 Sigmoidoscopy 1957 Lipid Panel 12/28/2024 12/28/2023, 0412/2022, 07/14/2022, Additional history exists Diabetes: Urine Protein Screening 05/02/2025 05/02/2024, 12/09/2021 Diabetes: Hemoglobin A1C 06/06/2025 025, 07/26/2024, 12/28/2023, Additional history exists Diabetes: Foot Exam 07/26/2025 07/26/2024, 07/26/2024, 07/26/2024, Additional history exists Colonoscopy 09/19/2025 09/19/2024 Colorectal Cancer Screening 09/19/2025 Alcohol/Substance Use Screening 12/07/2025 12/07/2024 Depression Screening 12/07/2025 12/07/2024, 12/07/19 SDOH Screening 01/22/2026 01/22/2025 Tobacco Screening 02/21/2026 02/21/2025 Eye Exam 04/06/2026 04/06/2024, 03/16, 04/06/2024, Additional history exists DTaP/Tdap/Td Vaccines (2 - Td or Tdap) 03/04/2032 03/04/2022 Zoster Vaccines Completed 01/03/2021, 09/13/2020 Hepatitis C Screening Completed 12/09/2021 Hepatitis A Vaccines Aged Out 09/02/2022, 02/18/20 No longer eligible based on patient's age to complete this topic Hepatitis B Vaccines Completed 09/02/2022, 05/06/2022, 02/17/2022 [...] complication, without long-term current use of insulin ([facility]) POCT GLYCATED HEMOGLOBIN, TOTAL Routine 12/07/2024 11:19 AM EST Type 2 diabetes mellitus without complication, without long-term current use of insulin ([facility]) HM COLONOSCOPY Routine 09/19/2024 ALBUMIN, RANDOM URINE [...] TEST ENTER /EDIT ORDERABLES Final Result * (ABNORMAL) Hm Colonoscopy (09/19/2024) Colonoscopy Normal Normal [facility] Comment:poor prep us Brittany Saldana MD HEALTH MAINTENANCE Final Result [facility] [address] [place] [phone] * Albumin, Random Urine W/Creatinine (05/02/2024 1:17 PM EDT) Creatinine, Urine 51.26 mg/dL [facility] Microalbumin Urine 7.0 mg/L [facility] Microalbum Creatinine Ratio Ur 13.6 <30 ug/mg cr [facility] Comment:Albumin/Creatinine R atio Reference Ranges: Normal: < 30 ug/mg creatinine Microalbuminuria: 30 - 300 ug/mg creatinineClinical Albuminuria: > 300 ug/mg creatinine 05/02/2024 1:17 PM EDT 05/02/2024 3:54 PM EDT Britatny Saldana MD LAB URINE ORDERABLES Fin al Result [facility] [address] [place] [phone] [phone] * (ABNORMAL) Lipid Panel, Standard (12/28/2023 9:54 AM EST) Triglycerides 71 <150 mg/dL [facility] Comment:Desirable Triglyceri de: less than 150 mg/dLBorderline High Triglyceride 150-199 mg/dLHigh Triglyceride: 200-499 mg/dLVery High Triglyceride: greater than or equal to 5OO mg/dL Cholesterol 115 <200 mg/dL [facility] Comment:Desirable Cholestero l: less than 200 mg/dLBorderline High Cholesterol: 200-239 mg/dLHigh Cholesterol: greater than 239 mg/dL LDL Cholesterol Calculated 68 <100 mg/dL [facility] Comment:Desirable LDL: less than 100 mg/dLNear Optimal/Above Optimal LDL: 110- 129 mg/dLBorderline High LDL: 130-159 mg/dLHigh LDL: 160-189 mg/dLVery High LDL: greater than or equal to 190 mg/dL HDL Cholesterol 33(L) >40 mg/dL [facility] Comment:Desirable HDL: great er than 40 mg/dL Note: This HDL assay may give artificially low results in patients with liver disease. 12/28/2023 9:54 AM EST 12/28/2023 9:54 AM EST Generic External Data Provider LAB BLOOD ORDERAB LES Final Result Performing Organization Address [facility] Co de Phone Number [facility] [address] [place] [address] [phone] * HEPATITIS C AB W/REFL TO HCV RNA, QN, PCR (12/09/2021 11:13 AM EST) HEPATITIS C ANTIBODY NON-REACT JAMES NON-REACT JAMES [facility] INDEX 0.03 <1.00 [facility] Comment: ?? HCV antibody was non-reactive. There is no laboratory ?? evidence of HCV infection. ?? In most cases, no further action is required. However, if recent HCV exposure is suspected, a test for HCV RNA (test code 92735) is suggested. ?? For additional information please refer to http://education.[employer].Funsherpa/faq/JDF23u0 (This link is being provided for informational/ educational purposes only.) ?? 12/09/2021 11:1 3 AM EST us Lulu Garcia ANP HISTORICAL/NON ORDERABLE LABS Fi nal Result Performing Organization Address City/[facility]/ZIP Co de Phone Number [facility] [address] [place] [address], from Last 3 Months or Most Recently Relevant to Health Maintenance Insurance [facility] Care Teams Senior Javascript Engineer Relationship Specialty Start Date End Date Brittany Saldana MD [address] [place] [address] PCP - General Family Medicine 05/08/20 Darrin Hernandez FNP [address] [place] [address] Nurse Practitioner Family Medicine 10/19/23
--- OUTSIDE RECORDS SUMMARY | 2025-02-21 13:28 | XMS_ITS | Encounter Summary ---
Author Organization [employer] Address [address] [place] [address] 7 [place] [address] Care Team Providers Care Testing Machine Operator Name Role Phone Brittany Saldana MD Primary Care Provider + Darrin Hernandez Unavailable Unavailable Reason for Visit * Reason Onset Date Comments Med Refill 06/15/2024 Encounter Details Date Type Department Care Team (Late st Contact Info) Description 06/15/2024 Refill [facility] [address], [place] [phone] Brittany Saldana MD [address] [place] [address] Acute insomnia Social History Tobacco Use Types [...] 2:00 PM EDT Office Visit [facility] [address] [place] [address] Eb Merino MD [address] [place] [address] 03/20/2025 1:15 PM EDT Office Visit [address] [address] Brandon Caballero MD [address] [place] [address] 04/12/2025 11:45 AM EDT Office Visit [address] [address] Brittany Saldana MD [address] [place] [address] documented as of this encounter Goals Goal [...] documented as of this encounter Care Teams Testing Machine Operator Relationship Specialty Start Date End Date Brittany Saldana MD [address] [place] [address] PCP - General Family Medicine 05/08/20 Darrin Hernandez FNP [address] [place] [address] Nurse Practitioner Family Medicine 10/19/23 documented as of this encounter
--- OUTSIDE RECORDS SUMMARY | 2025-02-21 13:28 | XMS_ITS | Clinical Summary ---
Author Organization [facility] ity Address [address] [place] [address] Care Team Providers Care Bag Checker Name Role Phone Samantha Faye MD Primary Care Provider [phone] Social History Tobacco Use Types Packs/Day Years [...] - 2023-2 5 season) 2024 Influenza Vaccine (Season Ended) 2025 RSV Immunization Adult Patie nts (1 - 1-dose 75+ series) 01/20/2032 HIB [...] age to complete this topic Meningococcal B Vaccine Aged Out No l onger eligible based on patient's age to complete this topic RSV Immunization Patients Un ron 20 months Aged Out No longer eligible b ased on patient's age to complete this topic Varicella Vaccines Aged Out No longer eligible based on patient's age to complete this topic Care Teams Bag Checker Relationship Specialty Start Date End Date Samantha Faye MD [address] [place] [phone] PCP - General 05/08/21
--- OUTSIDE RECORDS SUMMARY | 2025-02-21 13:28 | XMS_ITS | Encounter Summary ---
Author Organization [employer] Address [address] [place] [address] 7t [place] [address] Care Team Providers Care Cloth Shrinking Tester Name Role Phone Brittany Saldana MD Primary Care Provider + Darrin Hernandez Unavailable Unavailable Reason for Visit * Reason Onset Date Comments Durable Medical Equipment 02/15/2023 Encounter Details Date Type Department Care Team (Late st Contact Info) Description 02/15/[address] [facility] 230 [place] [address] Brittany Saldana MD [address] [place] [address] Durable Medical Equipment Social History Tobacco Use [...] Description 03/16/2025 2:00 PM EDT Office Visit [facility] [address] [place] [address] Eb Merino MD [address] [place] [address] 03/20/2025 1:15 PM EDT Office Visit [address] [address] Brandon Cbaallero MD [address] [place] [address] 04/12/2025 11:45 AM EDT Office Visit [address] [address] Brittany Saldana MD [address] [place] [address] documented as of this encounter Visit Diagnoses Not on filedocumented in this encounter Additional Health Concerns Assessment Noted Time PHQ-9 Depression Total Score: 10 023 10:47 AM EDT documented as of this encounter Care Teams Cloth Shrinking Tester Relationship Specialty Start Date End Date Brittany Saldana MD [address] [place] [address] PCP - General Family Medicine 05/08/20 Darrin Hernandez FNP [address] [place] [address] Nurse Practitioner Family Medicine 10/19/23 documented as of this encounter
--- OUTSIDE RECORDS SUMMARY | 2025-02-21 13:28 | XMS_ITS | Encounter Summary ---
Author Organization [employer] Address [address] [place] [address] 7 [place] [address] Care Team Providers Care Sewer And Inspector Name Role Phone Brittany Saldana MD Primary Care Provider + Darrin Hernandez Unavailable Unavailable Reason for Visit * Reason Onset Date Comments Med Refill 08/03/2024 Encounter Details Date Type Department Care Team (Late st Contact Info) Description 08/03/2024 Refill [facility] 230 [place] [address] [facility] [address] [place] [address] Mild intermittent asthma without complication Social History [...] Office Visit [facility] [address] [place] [address] Eb Merino MD [address] [place] [address] 03/20/2025 1:15 PM EDT Office Visit [address] [address] Brandon Caballero MD [address] [place] [address] 04/12/2025 11:45 AM EDT Office Visit [address] [address] Brittany Saldana MD [address] [place] [address] documented as of this encounter Goals Goal Patient Goal Type Associated Problems Recent Progress Patient-Stated? Author Blood Pressure < 140/90 Blood Pressure 136/62(2024 11:12 AM EDT) Venkatesh Mccann Magnolia Hemoglobin A1c < 7 Result Component 5.1( 5 11:19 AM EST) No Venkatesh Skinner PharmD documented as of this encounter Visit Diagnoses Diagnosis Mild intermittent asthma without complication documented in this encounter Additional Health Concerns Assessment Noted Time PHQ-9 Depression Total Score: 4 03/06/20 24 2:22 PM EDT documented as of this encounter Care Teams Sewer And Inspector Relationship Specialty Start Date End Date Brittany Saldana MD [address] [place] [address] PCP - General Family Medicine 05/08/20 Darrin Hernandez FNP [address] [place] [address] Nurse Practitioner Family Medicine 10/19/23 documented as of this encounter
--- OUTSIDE RECORDS SUMMARY | 2025-02-21 13:28 | XMS_ITS | Encounter Summary ---
Author Organization [employer] Address [address] [place] [address] [facility] [place] [address] Care Team Providers Care Smash Piecer Name Role Phone Brittany Saldana MD Primary Care Provider + Darrin Hernandez Unavailable Unavailable Reason for Visit * Reason Comments Med Refill Encounter Details Date Type Department Care Team (Late st Contact Info) Description 03/15/2023 Refill [facility] 230 [place] [address] Brittany Saldana MD 230 [place] [address] Primary hypertension Social History Tobacco Use Types [...] Description 03/16/2025 2:00 PM EDT Office Visit [facility] [address] [place] [address] Eb Merino MD [address] [place] [address] 03/20/2025 1:15 PM EDT Office Visit [facility] [address] [place] [address] Brandon Caballero MD [address] [place] [address] 04/12/2025 11:45 AM EDT Office Visit [facility] [address] [place] [address] [phone] Brittany Saldana MD [address] [place] [address] documented as of this encounter Visit Diagnoses Diagnosis Primary hypertension Unspecified essential hypertension documented in this encounter Additional Health Concerns Assessment Noted Time PHQ-9 Depression Total Score: 10 023 10:47 AM EDT documented as of this encounter Care Teams Smash Piecer Relationship Specialty Start Date End Date Brittany Saldana MD [address] [place] [address] PCP - General Family Medicine 05/08/20 Darrin Hernandez FNP [address] [place] [address] Nurse Practitioner Family Medicine 10/19/23 documented as of this encounter
--- OUTSIDE RECORDS SUMMARY | 2025-02-21 13:28 | XMS_ITS | Encounter Summary ---
Author Organization [employer] Address [address] [place] [address] 7 [place] [address] Care Team Providers Care Fast Food Cashier Name Role Phone Brittany Saldana MD Primary Care Provider + Darrin Hernandez Unavailable Unavailable Reason for Visit * Reason Onset Date Comments Med Refill 08/03/2024 Encounter Details Date Type Department Care Team (Late st Contact Info) Description 08/03/[address] [facility] 230 [place] [address] Brandon Caballero MD 230 [place] [address] Type 2 diabetes mellitus without complication, without long-term current use of insulin ([facility]) Social History Tobacco Use Types Packs/Day [...] the past 12 months, has t he [employer], gas, oil or water company threatened to [...] Description 03/16/2025 2:00 PM EDT Office Visit [address] [address] Eb Merino MD [address] [place] [address] 03/20/2025 1:15 PM EDT Office Visit [address] [address] Brandon Caballero MD [address] [place] [address] 04/12/2025 11:45 AM EDT Office Visit [address] [address] Brittany Saldana MD [address] [place] [address] documented as of this encounter Goals Goal [...] complication, without long-term current use of insulin ([facility]) documented in this encounter Additional Health Concerns Assessment Noted Time PHQ-9 Depression Total Score: 4 03/06/20 24 2:22 PM EDT documented as of this encounter Care Teams Fast Food Cashier Relationship Specialty Start Date End Date Brittany Saldana MD [address] [place] [address] PCP - General Family Medicine 05/08/20 Darrin Hernandez FNP [address] [place] [address] Nurse Practitioner Family Medicine 10/19/23 documented as of this encounter
[2025-02-21 13:36] LABS: MANUAL DIFF FLAG NO
[2025-02-21 13:44] LABS: Basophils Percent Auto 0.4 % (0-2); Eosinophils Absolute Auto 0.1 X10*3/uL (0.0-0.4); Eosinophils Percent Auto 1.3 % (0-4); Hematocrit 36.7 % (42.0-52.0); Hemoglobin 12.3 g/dl (14.0-18.0); Imm Gran Abs Auto 0.03 X10*3/uL (0.00-0.03); Imm Gran Pct Auto 0.4 % (0.0-0.4); Lymphocytes Absolute Auto 1.5 X10*3/uL (1.2-4.9); Mean Corpuscular HGB Conc 33.5 g/dl (31.0-36.0); Mean Corpuscular Volume 92.4 fL (80.0-98.0); Mean Platelet Volume 10.9 fL (9.4-12.4); Monocytes Absolute Auto 0.8 X10*3/uL (0.1-1.2); Monocytes Percent Auto 11.3 % (2-11); Neutrophils Absolute Auto 4.5 x10*3/uL (2.0-8.3); Neutrophils Percent Auto 65.6 % (45-73); Platelet Count 180 X10*3/uL (160-400); Red Blood Count 3.97 X10*6/uL (4.60-5.80); Red Cell Distribution Width 13.6 % (11.0-16.0); White Blood Count 6.9 X10*3/uL (4.8-10.8)
[2025-02-22 05:29] LABS: HIV AB/AG Nonreactive (Nonreactive); HIV Num 1 0.06 S/CO (0.00-0.99)
[2025-02-22 11:58] LABS: RPR Rapid Plasma Reagin NON-REACTIVE (NON-REACTIVE)
[2025-02-23 11:14] LABS: Lyme Abs Screen <0.90 index
== END 2025-02-21 11:23 | disposition home or self-care (01) ==
LOC: HO.HHCL 11:22
PROVIDERS: Visit Provider Nurse Practitioner
DX: H91.21 Sudden idiopathic hearing loss, right ear (principal)
CPT/HCPCS: 36415; 85025; 86592; 86617; 86618; 87389

== ENCOUNTER 2025-02-22 07:48 | Outpatient (REF) | payer OTHER, SELFPAY ==
--- NOTE | ~2025-02-22 | US_ITS ---
CLINICAL HISTORY: hx of umbilical hernia repairs, with new firm deep seated nodule over umbil US abdominal wall nonvascular Comparison: 01/18/2024 Findings: Sonographic evaluation in the area of clinical concern periumbilical region demonstrates a fascial defect supraumbilical region with probable omentum crossing the defect into the subcutaneous soft tissue measuring 1.3 cm in diameter the fascial defect is considerably smaller than the hernia sac. The patient was scanned supine sitting and upright and shows no significant interval change Impression: A supraumbilical ventral probable abdominal wall hernia containing omentum that did not self reduce. CT would be confirmatory. Soft tissue mass not excluded This document has been electronically signed by: Richy Castellanos MD on 02/22/2025 11:10:38
--- OUTSIDE RECORDS SUMMARY | 2025-02-22 07:51 | XMS_ITS | Encounter Summary ---
Author Organization [employer] Address [address] [place] [address] 7t [place] [address] Care Team Providers Care Traffic Operations Manager Name Role Phone Brittany Saldana MD Primary Care Provider + Darrin Hernandez Unavailable Unavailable Encounter Details Date Type Department Care Team (Latest Contact Info) Description 08/07/2022 Abstract [facility] CONVERSIONS Dental, Provider, DDS Social History Tobacco [...] Description 03/16/2025 2:00 PM EDT Office Visit [facility] [address] [place] [address] Eb Merino MD [address] [place] [address] 03/20/2025 1:15 PM EDT Office Visit [facility] [address] [place] [address] Brandon Caballero MD [address] [place] [address] [phone] 04/12/2025 11:45 AM EDT Office Visit [facility] [address] [place] [address] [phone] Brittany Saldana MD [address] [place] [address] documented as of this encounter Visit Diagnoses Not on filedocumented in this encounter Care Teams Traffic Operations Manager Relationship Specialty Start Date End Date Brittany Saldana MD [address] [place] [address] PCP - General Family Medicine 05/08/20 Darrin Hernandez FNP [address] [place] [address] Nurse Practitioner Family Medicine 10/19/23 documented as of this encounter
--- OUTSIDE RECORDS SUMMARY | 2025-02-22 07:51 | XMS_ITS | Encounter Summary ---
Author Organization [employer] Address [address] [place] [address] 7 [place] [address] Care Team Providers Care Attic Fans Mechanic Name Role Phone Brittany [place] MD Primary Care Provider + Darrin Hernandez Unavailable Unavailable Reason for Visit * Reason Onset Date Comments Referral 09/02/2023 Encounter Details Date Type Department Care Team (Late st Contact Info) Description 09/02/2023 Telephone [facility] [address] [place] [address] Brittany Saldana MD 230 [place] [address] Referral Social History Tobacco Use Types Packs/Day [...] from pt requesting a new referral for Community Facilitator Specialist, pt stated needs a hearing test. documented in this encounter Plan of Treatment Upcoming Encounters Date Type Department Care Team (Late st Contact Info) Description 03/16/2025 2:00 PM EDT Office Visit [facility] [address] [place] [address] Eb Merino MD [address] [place] [address] 03/20/2025 1:15 PM EDT Office Visit [facility] [address] [place] [address] Brandon Caballero MD [address] [place] [address] 04/12/2025 11:45 AM EDT Office Visit [facility] [address] [place] [address] Brittany Saldana MD [address] [place] [address] documented as of this encounter Visit Diagnoses Diagnosis 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, type 1 (von Recklinghausen's disease) ([facility]) Neurofibromatosis, Type 1 (von Recklinghausen's disease) documented in this encounter Additional Health Concerns Assessment Noted Time PHQ-9 Depression Total Score: 7 07/06/20 23 2:07 PM EDT documented as of this encounter Care Teams Attic Fans Mechanic Relationship Specialty Start Date End Date Brittany Saldana MD [address] [place] [address] PCP - General Family Medicine 05/08/20 Darrin Hernandez FNP [address] [place] [address] Nurse Practitioner Family Medicine 10/19/23 documented as of this encounter
--- OUTSIDE RECORDS SUMMARY | 2025-02-22 07:51 | XMS_ITS | Encounter Summary ---
Author Organization [employer] Address [address] [place] [address] 7 [place] [address] Care Team Providers Care Standard Machine Stitcher Name Role Phone Brittany Saldana MD Primary Care Provider + Darrin Hernandez Unavailable Unavailable Reason for Visit * Reason Onset Date Comments r/s appt 12/24/2022 Encounter Details Date Type Department Care Team (Late st Contact Info) Description 12/24/2022 Telephone [facility] 230 [place] [address] Brittany Saldana MD 230 [place] [address] r/s appt Social History Tobacco Use Types [...] states his ride was not there ontime. Sewing Machine Adjuster tried booking but December [employer] was full. Please contact pt at [phone] documented in this encounter Plan of Treatment Upcoming Encounters Date Type Department Care Team (Late st Contact Info) Description 03/16/2025 2:00 PM EDT Office Visit [facility] [address] [place] [address] Eb Merino MD [address] [place] [address] 03/20/2025 1:15 PM EDT Office Visit [address] [address] Brandon Caballero MD [address] [place] [address] 04/12/2025 11:45 AM EDT Office Visit [address] [address] Brittany Saldana MD [address] [place] [address] documented as of this encounter Visit Diagnoses Not on filedocumented in this encounter Additional Health Concerns Assessment Noted Time PHQ-9 Depression Total Score: 9 11/05/20 22 9:37 AM EST documented as of this encounter Care Teams Standard Machine Stitcher Relationship Specialty Start Date End Date Brittany Saldana MD [address] [place] [address] PCP - General Family Medicine 05/08/20 Darrin Hernandez FNP 230 [place] [address] Nurse Practitioner Family Medicine 10/19/23 documented as of this encounter
--- OUTSIDE RECORDS SUMMARY | 2025-02-22 07:51 | XMS_ITS | Encounter Summary ---
Author Organization [employer] Address [address] [place] [address] 7 [place] [address] Care Team Providers Care Family Services Manager Name Role Phone Brittany Saldana MD Primary Care Provider + Darrin Hernandez Unavailable Unavailable Reason for Visit * Reason Onset Date Comments Appointment 09/10/2023 Encounter Details Date Type Department Care Team (Late st Contact Info) Description 09/10/2023 Telephone [facility] [address] [place] [address] Misbah Kerraris [address] [place] [address] Appointment Social History Tobacco Use Types Packs/Day [...] cleaning appt. Last appt he had in [place] was deep leaning in September and the [...] Description 03/16/2025 2:00 PM EDT Office Visit [facility] [address] [place] [address] Eb Merino MD [address] [place] [address] 03/20/2025 1:15 PM EDT Office Visit [facility] [address] [place] [address] Brandon Caballero MD [address] [place] [address] [place] [address] 04/12/2025 11:45 AM EDT Office Visit [facility] [address] [place] [address] Brittany Saldana MD [address] [place] [address] documented as of this encounter Visit Diagnoses Not on filedocumented in this encounter Additional Health Concerns Assessment Noted Time PHQ-9 Depression Total Score: 4 09/06/20 11:30 AM EDT documented as of this encounter Care Teams Family Services Manager Relationship Specialty Start Date End Date Brittany Saldana MD [address] [place] [address] PCP - General Family Medicine 05/08/20 Darrin Hernandez FNP [address] [place] [address] Nurse Practitioner Family Medicine 10/19/23 documented as of this encounter
--- OUTSIDE RECORDS SUMMARY | 2025-02-22 07:51 | XMS_ITS | Patient Health Record ---
Author Organization [employer] Address [address] [facility] [address] [place] [address] Support Name Relationship Address Phone Dane Calles Guarantor Unknown [phone] Allergies Allergen (clinical drug ingredient) Drug/Non Drug [...] Disorder due to type 2 diabetes mellitus (768307261) Type 2 diabetes mellitus with unspecified complications (E11.8) Active confirmed Problem Morbid obesity (disorder) (672851557) Morbid (severe) obesity due to excess calories (E66.01) Active confirmed Problem Mixed hyperlipidemia (922135772) Mixed hyperlipidemia (E78.2) Active confirmed Problem Alcohol dependence (85239629) Alcohol dependence, uncomplicated (F10.20) Active confirmed Problem Mild recurrent major depression (86981211) Major depressive disorder, recurrent, mild (F33.0) Active confirmed Problem 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, intractable, 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) Active confirmed Problem 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, intractable, without status epilepticus (G40.219) Active confirmed Problem Obstructive sleep apnea syndrome (disorder) (86599304) Obstructive sleep apnea (adult) (pediatric) (G47.33) Active confirmed Problem Essential hypertension (32687947) Essential (primary) hypertension (I10) Active confirmed Problem Gastro-esophageal reflux disease without esophagitis (115245518) Gastro-esophageal reflux disease without esophagitis (K21.9) Active confirmed Problem Neurofibromatosis (56215828) Neurofibromatosis , 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) Active confirmed Problem Somnolence (99639365) Somnolence (R40.0) Active confirmed Problem Attention deficit hyperactivity disorder, predominantly inattentive type (disorder) (96442453) Attention and concentration deficit (R41.840) Active confirmed Problem Body mass index 40+ - severely obese (203894655) Body mass index (BMI) 40.0-44.9, adult (Z68.41) Active confirmed Problem Lower urinary tract symptoms due to benign prostatic hypertrophy (52042893663864) Benign prostatic hyperplasia with lower urinary tract symptoms (N40.1) Active confirmed Problem Morbid obesity (637181958) Morbid obesity (E66.01) Active confirmed Plan Of Treatment No Information Medical (General) History Medical History History ICD Code hypertension, benign acid reflux BPH see Urology Attention deficit disorder Neurofibromatosis complex partial seizure disorder Surgical History Surgery Date(Month/Year) Umblical hernia repair 2004 Tonsellectomy Cyst in throat removed
--- OUTSIDE RECORDS SUMMARY | 2025-02-22 07:52 | XMS_ITS | Encounter Summary ---
Author Organization [employer] Address [address] [place] [address] 7 [place] [address] Care Team Providers Care Operating Room Scheduler Name Role Phone Brittany Saldana MD Primary Care Provider + Darrin Hernandez Unavailable Unavailable Reason for Visit * Reason Onset Date Comments Med Refill 07/23/2024 Encounter Details Date Type Department Care Team (Late st Contact Info) Description 07/23/2024 Refill [facility] 230 [place] [address] [facility] 230 [place] [address] Depression, unspecified depression type Social History Tobacco [...] Description 03/16/2025 2:00 PM EDT Office Visit [facility] [address] [place] [address] Eb Merino MD [address] [place] [address] 03/20/2025 1:15 PM EDT Office Visit [address] [address] Brandon Caballero MD [address] [place] [address] 04/12/2025 11:45 AM EDT Office Visit [address] [address] Brittany Saldana MD [address] [place] [address] documented as of this encounter Goals Goal [...] documented as of this encounter Care Teams Operating Room Scheduler Relationship Specialty Start Date End Date Brittany Saldana MD [address] [place] [address] PCP - General Family Medicine 05/08/20 Darrin Hernandez FNP [address] [place] [address] Nurse Practitioner Family Medicine 10/19/23 documented as of this encounter
--- OUTSIDE RECORDS SUMMARY | 2025-02-22 07:52 | XMS_ITS | Clinical Summary ---
Author Organization [facility] Address [address] [place] [address] Care Team Providers Care Ship Captain Name Role Phone Selvin Payan MD Primary Care Provider [phone] Allergies Active Allergy Reactions Criticality Noted Date [...] age to complete this topic Care Teams Ship Captain Relationship Specialty Start Date End Date Selvin Payan MD [address] [place] [address] PCP - General Internal Medicine 03/08/18
--- OUTSIDE RECORDS SUMMARY | 2025-02-22 07:52 | XMS_ITS | Encounter Summary ---
Author Organization [employer] Address [address] [place] [address] 7 [place] [address] Care Team Providers Care Professional Fee Coder Name Role Phone Brittany Saldana MD Primary Care Provider + Darrin Hernandez Unavailable Unavailable Reason for Visit * Reason Onset Date Comments Durable Medical Equipment 02/20/2025 DME Or ron: Compression Stockings Encounter Details Date Type Department Care Team (Late st Contact Info) Description 02/20/2025 Telephone [facility] [address] [place] [address] Brittany Saldana MD [address] [place] [address] Durable Medical Equipment (DME Order: Compression Stockings) [...] Description 03/16/2025 2:00 PM EDT Office Visit [facility] [address] [place] [address] Eb Merino MD [address] [place] [address] 03/20/2025 1:15 PM EDT Office Visit [facility] [address] [place] [address] Brandon Caballero MD [address] [place] [address] 04/12/2025 11:45 AM EDT Office Visit [facility] [address] [place] [address] Brittany Saldana MD [address] [place] [address] documented as of this encounter Goals Goal [...] documented as of this encounter Care Teams Professional Fee Coder Relationship Specialty Start Date End Date Brittany Saldana MD [address] [place] [address] PCP - General Family Medicine 05/08/20 Darrin Hernandez FNP [address] [place] [address] Nurse Practitioner Family Medicine 10/19/23 documented as of this encounter
--- OUTSIDE RECORDS SUMMARY | 2025-02-22 07:52 | XMS_ITS | Encounter Summary ---
Author Organization [employer] Address [address] [place] [address] 7 [place] [address] Care Team Providers Care Adolescent Psychiatrist Name Role Phone Brittany Saldana MD Primary Care Provider + Darrin Hernandez Unavailable Unavailable Reason for Visit * Reason Comments Med Refill Encounter Details Date Type Department Care Team (Late st Contact Info) Description 04/21/2024 Refill [facility] [address] [place] [address] Brittany Saldana MD 230 [place] [address] Mild intermittent asthma without complication Social History [...] Description 03/16/2025 2:00 PM EDT Office Visit [facility] [address] [place] [address] Eb Merino MD [address] [place] [address] 03/20/2025 1:15 PM EDT Office Visit [address] [address] Brandon Caballero MD [address] [place] [address] 04/12/2025 11:45 AM EDT Office Visit [address] [address] Brittany Saldana MD [address] [place] [address] documented as of this encounter Goals Goal [...] documented as of this encounter Care Teams Adolescent Psychiatrist Relationship Specialty Start Date End Date Brittany Saladna MD [address] [place] [address] PCP - General Family Medicine 05/08/20 Darrin Hernandez FNP [address] [place] [address] Nurse Practitioner Family Medicine 10/19/23 documented as of this encounter
--- OUTSIDE RECORDS SUMMARY | 2025-02-22 07:52 | XMS_ITS | Encounter Summary ---
Author Organization [employer] Address [address] [place] [address] 7 [place] [address] Care Team Providers Care Sand Mill Grinder Name Role Phone Brittany Saldana MD Primary Care Provider + Darrin Hernandez Unavailable Unavailable Reason for Visit * Reason Onset Date Comments Med Refill 08/11/2024 Encounter Details Date Type Department Care Team (Late st Contact Info) Description 08/11/2024 Refill [facility] 230 [place] [address] Brittany Saldana MD [address] [place] [address] Mild intermittent asthma without complication Social History [...] 2:00 PM EDT Office Visit [facility] [address] [place] [address] Eb Merino MD [address] [place] [address] 03/20/2025 1:15 PM EDT Office Visit [address] [address] Brandon Caballero MD [address] [place] [address] 04/12/2025 11:45 AM EDT Office Visit [address] [address] Brittany Saldana MD [address] [place] [address] documented as of this encounter Goals Goal [...] documented as of this encounter Care Teams Sand Mill Grinder Relationship Specialty Start Date End Date Brittany Saldana MD [address] [place] [address] PCP - General Family Medicine 05/08/20 Darrin Hernandez FNP [address] [place] [address] Nurse Practitioner Family Medicine 10/19/23 documented as of this encounter
--- OUTSIDE RECORDS SUMMARY | 2025-02-22 07:52 | XMS_ITS | Encounter Summary ---
Author Organization [employer] Address [address] [place] [address] 7t [place] [address] Care Team Providers Care Rail Project Engineer Name Role Phone Brittany Saldaan MD Primary Care Provider + Darrin Hernandez Unavailable Unavailable Reason for Visit * Reason Onset Date Comments Durable Medical Equipment 02/17/2023 Encounter Details Date Type Department Care Team (Late st Contact Info) Description 02/17/2023 Telephone [facility] 230 [place] [address] Brittany Saldana MD [address] [place] [address] Durable Medical Equipment Social History Tobacco Use [...] . Pt requested to be sent to [facility] . Any questions please contact pt at [phone]. documented in this encounter Plan of Treatment Upcoming Encounters Date Type Department Care Team (Late st Contact Info) Description 03/16/2025 2:00 PM EDT Office Visit [facility] [address] [place] [address] Eb Merino MD [address] [place] [address] 03/20/2025 1:15 PM EDT Office Visit [address] [address] Brandon Caballero MD [address] [place] [address] 04/12/2025 11:45 AM EDT Office Visit [address] [address] Brittany Saldana MD [address] [place] [address] documented as of this encounter Visit Diagnoses Not on filedocumented in this encounter Additional Health Concerns Assessment Noted Time PHQ-9 Depression Total Score: 10 023 10:47 AM EDT documented as of this encounter Care Teams Rail Project Engineer Relationship Specialty Start Date End Date Brittany Saldana MD [address] [place] [address] PCP - General Family Medicine 05/08/20 Darrin Hernandez FNP 230 [place] [address] Nurse Practitioner Family Medicine 10/19/23 documented as of this encounter
--- OUTSIDE RECORDS SUMMARY | 2025-02-22 07:52 | XMS_ITS | Encounter Summary ---
Author Organization [employer] Address [address] [place] [address] 7 [place] [address] Care Team Providers Care Packager Machine Name Role Phone Brittany Saldana MD Primary Care Provider + Darrin Hernandez Unavailable Unavailable Reason for Visit * Reason Onset Date Comments Referral 09/24/2023 Encounter Details Date Type Department Care Team (Late st Contact Info) Description 09/24/2023 Telephone [facility] 230 [place] [address] Brittany Saldana MD 230 [place] [address] Referral Social History Tobacco Use Types Packs/Day [...] 9:02 AM EST Tc from sri with [facility] requesting a new order for Occupational therapy for weakness in hands. States they received the referral for Occupational therapy but dx says hip pain. Please fax to [phone] Any questions, please contact sri at [phone] documented in this encounter Plan of Treatment Upcoming Encounters Date Type Department Care Team (Late st Contact Info) Description 03/16/2025 2:00 PM EDT Office Visit [facility] [address] [place] [address] Eb Merino MD [address] [place] [address] 03/20/2025 1:15 PM EDT Office Visit [facility] [address] [place] [address] Brandon Caballero MD [address] [place] [address] 04/12/2025 11:45 AM EDT Office Visit [facility] [address] [place] [address] Brittany Saldana MD 230 [place] [address] documented as of this encounter Visit Diagnoses Not on filedocumented in this encounter Additional Health Concerns Assessment Noted Time PHQ-9 Depression Total Score: 4 09/06/20 23 11:30 AM EDT documented as of this encounter Care Teams Packager Machine Relationship Specialty Start Date End Date Brittany Saldana MD [address] [place] [address] PCP - General Family Medicine 05/08/20 Darrin Hernandez FNP [address] [place] [address] Nurse Practitioner Family Medicine 10/19/23 documented as of this encounter
--- OUTSIDE RECORDS SUMMARY | 2025-02-22 07:52 | XMS_ITS | Clinical Summary ---
Author Organization [facility] it Address [address] [place] [address] Care Team Providers Care Mending Carrier Name Role Phone Samantha Faye MD Primary Care Provider [phone] Social History Tobacco Use Types Packs/Day Years [...] age to complete this topic Care Teams Mending Carrier Relationship Specialty Start Date End Date Samantha Faye MD [address] [place] [phone] PCP - General 05/08/21
--- OUTSIDE RECORDS SUMMARY | 2025-02-22 07:52 | XMS_ITS | Encounter Summary ---
Author Organization [employer] Address [address] [place] [address] 7 [place] [address] Care Team Providers Care Chartered Wealth Manager Name Role Phone Brittany Saldana MD Primary Care Provider + Darrin Hernandez Unavailable Unavailable Reason for Visit * Reason Onset Date Comments Med Refill 08/03/2024 Encounter Details Date Type Department Care Team (Late st Contact Info) Description 08/03/2024 Refill [facility] 230 [place] [address] [facility] 230 [place] [address] Mild intermittent asthma without complication Social History [...] Description 03/16/2025 2:00 PM EDT Office Visit [facility] [address] [place] [address] Eb Merino MD [address] [place] [address] 03/20/2025 1:15 PM EDT Office Visit [address] [address] Brandon Caballero MD [address] [place] [address] 04/12/2025 11:45 AM EDT Office Visit [address] [address] Brittany Saldana MD [address] [place] [address] documented as of this encounter Goals Goal [...] documented as of this encounter Care Teams Chartered Wealth Manager Relationship Specialty Start Date End Date Brittany Saldana MD 230 [place] [address] PCP - General Family Medicine 05/08/20 Darrin Hernandez FNP [address] [place] [address] Nurse Practitioner Family Medicine 10/19/23 documented as of this encounter
--- OUTSIDE RECORDS SUMMARY | 2025-02-22 07:52 | XMS_ITS | Encounter Summary ---
Author Organization [employer] Address [address] [place] [address] 7t [place] [address] Care Team Providers Care Orchestra Musician Name Role Phone Brittany Saldana MD Primary Care Provider + Darrin Hernandez Unavailable Unavailable Reason for Visit * Reason Onset Date Comments Durable Medical Equipment 02/15/2023 Encounter Details Date Type Department Care Team (Late st Contact Info) Description 02/15/2023 Telephone [facility] 230 [place] [address] Brittany Saldana MD [address] [place] [address] Durable Medical Equipment Social History Tobacco Use [...] 2:00 PM EDT Office Visit [facility] [address] [place] [address] Eb Merino MD [address] [place] [address] 03/20/2025 1:15 PM EDT Office Visit [address] [address] Brandon Caballero MD [address] [place] [address] 04/12/2025 11:45 AM EDT Office Visit [address] [address] Brittany Saldana MD [address] [place] [address] documented as of this encounter Visit Diagnoses Not on filedocumented in this encounter Additional Health Concerns Assessment Noted Time PHQ-9 Depression Total Score: 10 023 10:47 AM EDT documented as of this encounter Care Teams Orchestra Musician Relationship Specialty Start Date End Date Brittany Saldana MD [address] [place] [address] PCP - General Family Medicine 05/08/20 Darrin Hernandez FNP [address] [place] [address] Nurse Practitioner Family Medicine 10/19/23 documented as of this encounter
--- OUTSIDE RECORDS SUMMARY | 2025-02-22 07:52 | XMS_ITS | Encounter Summary ---
Author Organization [employer] Address [address] [place] [address] 7 [place] [address] Care Team Providers Care Sleep Lab Technologist Name Role Phone Brittany Saldana MD Primary Care Provider + Darrin Hernandez Unavailable Unavailable Reason for Visit * Reason Onset Date Comments Med Refill 04/16/2024 Encounter Details Date Type Department Care Team (Late st Contact Info) Description 04/16/[address] [facility] [address] [place] [address] Darrin Hernandez FNP PTSD (post-traumatic stress disorder) [...] PM EDT Office Visit [facility] [address] [place] [address] Eb Merino MD [address] [place] [address] 03/20/2025 1:15 PM EDT Office Visit [address] [address] Brandon Caballero MD [address] [place] [address] 04/12/2025 11:45 AM EDT Office Visit [address] [address] Brittany Saldana MD [address] [place] [address] documented as of this encounter Goals Goal [...] documented as of this encounter Care Teams Sleep Lab Technologist Relationship Specialty Start Date End Date Brittany Saldana MD 230 [place] [address] PCP - General Family Medicine 05/08/20 Darrin Hernandez FNP 230 [place] [address] Nurse Practitioner Family Medicine 10/19/23 documented as of this encounter
--- OUTSIDE RECORDS SUMMARY | 2025-02-22 07:52 | XMS_ITS | Encounter Summary ---
Author Organization [employer] Address [address] [place] [address] 7 [place] [address] Care Team Providers Care Bell Valet Name Role Phone Brittany Saldana MD Primary Care Provider + Darrin Hernandez Unavailable Unavailable Reason for Visit * Reason Onset Date Comments Nurse Triage 02/20/2025 Encounter Details Date Type Department Care Team (Late st Contact Info) Description 02/20/2025 Telephone [facility] 230 [place] [address] Brittany Saldana MD 230 [place] [address] Nurse Triage Social History Tobacco Use Types [...] with plan. No PCP appts. ASK/M. Appram BLUEPRINT TRACER tomorrow 02/21/2025 1045am. Protocol Used: Ear - [...] 03/16/2025 2:00 PM EDT Office Visit [facility] [address] [place] [address] Eb Merino MD [address] [place] [address] 03/20/2025 1:15 PM EDT Office Visit [address] [address] Brandon Caballero MD [address] [place] [address] 04/12/2025 11:45 AM EDT Office Visit [address] [address] Brittany Saldana MD [address] [place] [address] documented as of this encounter Goals Goal [...] documented as of this encounter Care Teams Bell Valet Relationship Specialty Start Date End Date Brittany Saldana MD [address] [place] [address] PCP - General Family Medicine 05/08/20 Darrin Hernandez FNP 230 [place] [address] Nurse Practitioner Family Medicine 10/19/23 documented as of this encounter
--- OUTSIDE RECORDS SUMMARY | 2025-02-22 07:52 | XMS_ITS | Encounter Summary ---
Author Organization [employer] Address [address] [place] [address] 7 [place] [address] Care Team Providers Care Media Arts Professor Name Role Phone Brittany Saldana MD Primary Care Provider + Darrin Hernandez Unavailable Unavailable Reason for Visit * Reason Onset Date Comments Med Refill 06/11/2024 Encounter Details Date Type Department Care Team (Late st Contact Info) Description 06/11/2024 Refill [facility] 230 [place] [address] Brittany Saldana MD 230 [place] [address] Social History Tobacco Use Types Packs/Day Years [...] 2:00 PM EDT Office Visit [facility] [address] [place] [address] Eb Merino MD [address] [place] [address] 03/20/2025 1:15 PM EDT Office Visit [address] [address] Brandon Caballero MD [address] [place] [address] 04/12/2025 11:45 AM EDT Office Visit [address] [address] Brittany Saldana MD [address] [place] [address] documented as of this encounter Goals Goal [...] documented as of this encounter Care Teams Media Arts Professor Relationship Specialty Start Date End Date Brittany Saldana MD [address] [place] [address] PCP - General Family Medicine 05/08/20 Darrin Hernandez FNP [address] [place] [address] Nurse Practitioner Family Medicine 10/19/23 documented as of this encounter
--- OUTSIDE RECORDS SUMMARY | 2025-02-22 07:52 | XMS_ITS | Encounter Summary ---
Author Organization [employer] Address [address] [place] [address] 7 [place] [address] Care Team Providers Care Quality Control Lab Technician Name Role Phone Brittany Saldana MD Primary Care Provider + Darrin Hernandez Unavailable Unavailable Reason for Visit * Reason Comments [facility] Recovery Supports Encounter Details Date Type Department Care Team (Late st Contact Info) Description 02/20/2025 Patient Outreach [facility] 230 [place] [address] Jose Chang [address] [place] [address] Recovery Supports Social History Tobacco Use Types [...] with Dane today. Setting: in person at [facility] Recovery Wellness Goals worked on: Physical Health/Mental Health, Social Stability, and Spiritual Wellness Action taken/next steps: Attended recovery support group Additional comments: Jose Chang documented in this encounter Plan of Treatment Upcoming Encounters Date Type Department Care Team (Late st Contact Info) Description 03/16/2025 2:00 PM EDT Office Visit [facility] [address] [place] [address] Eb Merino MD [address] [place] [address] 03/20/2025 1:15 PM EDT Office Visit [facility] [address] [place] [address] Brandon Caballero MD [address] [place] [address] 04/12/2025 11:45 AM EDT Office Visit [facility] 230 [place] [address] Brittany Saldana MD 230 [place] [address] documented as of this encounter Goals Goal [...] documented as of this encounter Care Teams Quality Control Lab Technician Relationship Specialty Start Date End Date Brittany Saldana MD [address] [place] [address] PCP - General Family Medicine 05/08/20 Darrin Hernandez FNP [address] [place] [address] Nurse Practitioner Family Medicine 10/19/23 documented as of this encounter
--- OUTSIDE RECORDS SUMMARY | 2025-02-22 07:52 | XMS_ITS | Encounter Summary ---
Author Organization [employer] Address [address] [place] [address] 7 [place] [address] Care Team Providers Care Cash Van Salesperson Name Role Phone Brittany Saldana MD Primary Care Provider + Darrin Hernandez Unavailable Unavailable Reason for Visit * Reason Comments Med Refill Encounter Details Date Type Department Care Team (Late st Contact Info) Description 03/15/2023 Refill [facility] 230 [place] [address] Brittany Saldana MD 230 [place] [address] Primary hypertension Social History Tobacco Use Types [...] Description 03/16/2025 2:00 PM EDT Office Visit [facility] [address] [place] [address] Eb Merino MD [address] [place] [address] 03/20/2025 1:15 PM EDT Office Visit [facility] [address] [place] [address] Brandon Caballero MD [address] [place] [address] 04/12/2025 11:45 AM EDT Office Visit [facility] [address] [place] [phone] Brittany Saldana MD [address] [place] [address] documented as of this encounter Visit Diagnoses Diagnosis Primary hypertension Unspecified essential hypertension documented in this encounter Additional Health Concerns Assessment Noted Time PHQ-9 Depression Total Score: 10 023 10:47 AM EDT documented as of this encounter Care Teams Cash Van Salesperson Relationship Specialty Start Date End Date Brittany Saldana MD [address] [place] [address] PCP - General Family Medicine 05/08/20 Darrin Hernandez FNP [address] [place] [address] Nurse Practitioner Family Medicine 10/19/23 documented as of this encounter
--- OUTSIDE RECORDS SUMMARY | 2025-02-22 07:52 | XMS_ITS | Encounter Summary ---
Author Organization [employer] Address [address] [place] [address] 7t [place] [address] Care Team Providers Care Conical Mixer Name Role Phone Brittany Saldana MD Primary Care Provider + Darrin Hernandez Unavailable Unavailable Reason for Visit * Reason Onset Date Comments Durable Medical Equipment 01/05/2023 Encounter Details Date Type Department Care Team (Late st Contact Info) Description 01/05/2023 Telephone [facility] [address] [place] [address] Brittany Saldana MD [address] [place] [address] Durable Medical Equipment Social History Tobacco Use [...] If any questions please contact pt at [phone] documented in this encounter Plan of Treatment Upcoming Encounters Date Type Department Care Team (Late st Contact Info) Description 03/16/2025 2:00 PM EDT Office Visit [facility] [address] [place] [address] Eb Merino MD [address] [place] [address] 03/20/2025 1:15 PM EDT Office Visit [facility] [address] [place] [address] Brandon Caballero MD [address] [place] [address] 04/12/2025 11:45 AM EDT Office Visit [facility] [address] [place] [address] Brittany Saldana MD [address] [place] [address] documented as of this encounter Visit Diagnoses Not on filedocumented in this encounter Additional Health Concerns Assessment Noted Time PHQ-9 Depression Total Score: 4 12/31/19 23 10:56 AM EST documented as of this encounter Care Teams Conical Mixer Relationship Specialty Start Date End Date Brittany Saldana MD [address] [place] [address] PCP - General Family Medicine 05/08/20 Darrin Hernandez FNP [address] [place] [address] Nurse Practitioner Family Medicine 10/19/23 documented as of this encounter
--- OUTSIDE RECORDS SUMMARY | 2025-02-22 07:52 | XMS_ITS | Encounter Summary ---
Author Organization [employer] Address [address] [place] [address] 7 [place] [address] Care Team Providers Care Retort Load Expediter Name Role Phone Brittany Saldana MD Primary Care Provider + Darrin Hernandez Unavailable Unavailable Reason for Visit * Reason Onset Date Comments Med Refill 08/03/2024 Encounter Details Date Type Department Care Team (Late st Contact Info) Description 08/03/2024 Refill [facility] 230 [place] [address] Brandon Caballero MD [address] [place] [address] Type 2 diabetes mellitus without complication, without long-term current use of insulin ([facility]) Social History Tobacco Use Types [...] the past 12 months, has t he [employer], gas, oil or water company threatened to [...] Description 03/16/2025 2:00 PM EDT Office Visit [address] [address] Eb Merino MD [address] [place] [address] 03/20/2025 1:15 PM EDT Office Visit [address] [address] Brandon Caballero MD [address] [place] [address] 04/12/2025 11:45 AM EDT Office Visit [address] [address] Brittany Saldana MD [address] [place] [address] documented as of this encounter Goals Goal [...] of insulin ([facility]) documented in this encounter Additional Health Concerns Assessment Noted Time PHQ-9 Depression Total Score: 4 03/06/20 24 2:22 PM EDT documented as of this encounter Care Teams Retort Load Expediter Relationship Specialty Start Date End Date Brittany Saldana MD [address] [place] [address] PCP - General Family Medicine 05/08/20 Darrin Hernandez FNP [address] [place] [address] Nurse Practitioner Family Medicine 10/19/23 documented as of this encounter
--- OUTSIDE RECORDS SUMMARY | 2025-02-22 07:52 | XMS_ITS | Encounter Summary ---
Author Organization [employer] Address [address] [place] [address] 7 [place] [address] Care Team Providers Care Dance Coach Name Role Phone Brittany Saldana MD Primary Care Provider + Darrin Hernandez Unavailable Unavailable Reason for Visit * Reason Onset Date Comments Med Refill 01/09/2025 Encounter Details Date Type Department Care Team (Late st Contact Info) Description 01/09/2025 Refill [facility] MEDICINE [address] [place], [place] [phone] Brittany Saldana MD [address] [place] [address] Social History Tobacco Use Types Packs/Day Years [...] Description 03/16/2025 2:00 PM EDT Office Visit [facility] MED[facility]INE [address] [place] [address] Eb Merino MD [address] [place] [phone] 03/20/2025 1:15 PM EDT Office Visit [address] [address] Brandon Caballero MD [address] [place] [address] 04/12/2025 11:45 AM EDT Office Visit [address] [address] Brittany Saldana MD [address] [place] [address] documented as of this encounter Goals Goal [...] documented as of this encounter Care Teams Dance Coach Relationship Specialty Start Date End Date Brittany Saldana MD [address] [place] [phone] PCP - General Family Medicine 05/08/20 Darrin Hernandez FNP [address] [place] [address] Nurse Practitioner Family Medicine 10/19/23 documented as of this encounter
--- OUTSIDE RECORDS SUMMARY | 2025-02-22 07:52 | XMS_ITS | Encounter Summary ---
Author Organization [employer] Address [address] [place] [address] 7t [place] [address] Care Team Providers Care Concrete Form Setter And Finisher Name Role Phone Brittany Saldana MD Primary [...] Description 03/16/2025 2:00 PM EDT Office Visit [address] [address] Eb Merino MD [address] [place] [address] 03/20/2025 1:15 PM EDT Office Visit [address] [address] Brandon Caballero MD [address] [place] [address] 04/12/2025 11:45 AM EDT Office Visit [address] [address] Brittany Saldana MD [address] [place] [address] documented as of this encounter Goals Goal [...] documented as of this encounter Care Teams Concrete Form Setter And Finisher Relationship Specialty Start Date End Date Brittany Saldana MD [address] [place] [address] PCP - General Family Medicine 05/08/20 Darrin Hernandez FNP [address] [place] [address] Nurse Practitioner Family Medicine 10/19/23 documented as of this encounter
--- OUTSIDE RECORDS SUMMARY | 2025-02-22 07:52 | XMS_ITS | Encounter Summary ---
Author Organization [employer] Address [address] [place] [address] 7 [place] [address] Care Team Providers Care Splunk Consultant Name Role Phone Brittany Saldana MD Primary Care Provider + Darrin Hernandez Unavailable Unavailable Reason for Visit * Reason Onset Date Comments Med Refill 06/15/2024 Encounter Details Date Type Department Care Team (Late st Contact Info) Description 06/15/2024 Refill [facility] MEDICINE [address] [place], [place] [phone] Brittany Saldana MD [address] [place] [address] Acute insomnia Social History Tobacco Use Types [...] 2:00 PM EDT Office Visit [facility] MEDICINE [address] [place] [address] Eb Merino MD [address] [place] [address] 03/20/2025 1:15 PM EDT Office Visit [address] [address] Brandon Caballero MD [address] [place] [address] 04/12/2025 11:45 AM EDT Office Visit [address] [address] Brittany Saldana MD [address] [place] [address] documented as of this encounter Goals Goal [...] documented as of this encounter Care Teams Splunk Consultant Relationship Specialty Start Date End Date Brittany Saldana MD [address] [place] [phone] PCP - General Family Medicine 05/08/20 Darrin Hernandez FNP [address] [place] [address] Nurse Practitioner Family Medicine 10/19/23 documented as of this encounter
--- OUTSIDE RECORDS SUMMARY | 2025-02-22 07:52 | XMS_ITS | Encounter Summary ---
Author Organization [employer] Address [address] [place] [address] 7t [place] [address] Care Team Providers Care Baking Powder Mixer Name Role Phone Brittany Saldana MD Primary Care Provider + Darrin Hernandez Unavailable Unavailable Encounter Details Date Type Department Care Team (Late st Contact Info) Description 02/20/2025 Telephone [facility] MEDICINE [address] [place] [address] Brittany Saldana MD [address] [place] [address] Social History Tobacco Use Types Packs/Day Years [...] is your housing situation today? I have bets howard 02/29/[address] you [...] Description 03/16/2025 2:00 PM EDT Office Visit [facility] MEDICINE [address] [place] [address] Eb Merino MD [address] [place] [address] 03/20/2025 1:15 PM EDT Office Visit [facility] [address] [place] [address] Brandon Caballero MD [address] [place] [address] 04/12/2025 11:45 AM EDT Office Visit [facility] MEDICINE [address] [place] [address] Brittany Saldana MD [address] [place] [address] documented as of this encounter Goals Goal [...] documented as of this encounter Care Teams Baking Powder Mixer Relationship Specialty Start Date End Date Brittany Saldana MD [address] [place] [phone] PCP - General Family Medicine 05/08/20 Darrin Hernandez FNP [address] [place] [phone] Nurse Practitioner Family Medicine 10/19/23 documented as of this encounter
--- OUTSIDE RECORDS SUMMARY | 2025-02-22 07:52 | XMS_ITS | Clinical Summary ---
Author Organization [employer] Address [address] [place] [address] 7 [place] [address] Care Team Providers Care Shipping Agent Name Role Phone Brittany Saldana MD Primary [...] complication, without long-term current use of insulin ([facility]) Use 1 lancet to monitor blood glucose [...] g 08/11/20 24 025 Active glucose blood (Slinguch Ultra) test stripIndication s:Type 2 diabetes mellitus without complication, without long-term current use of insulin ([facility]) TEST BLOOD SUGAR TWICE DAILY 100 strip [...] complication, without long-term current use of insulin ([facility]) TAKE ONE CAPSULE BY MOUTH EVERY MORNING, [...] AM EDT): - obtain holter monitor from [facility] ordered by weight management program - will [...] exercise, life style modifications, diet, referral to exterior interior specialist. Discussed re lower calorie intake, increase [...] and fu with . Order TSH/testosterone levels, psychology professor input appreciated. Iliopsoas bursitis of left hip [...] IZs -RSV pending not available today in [facility] pharmacy Advise to have it at [...] management. For any issues or concerns contact [facility]. Continue with therapist as usual. I [...] he he was not contacted yet, per school psychology specialist, Kalyan reid contact him on 05/11/23 [...] for 6 months. He will be Contacting [facility] for him to engage in Ind. Therapy [...] treatment engagement. PLAN: 1. Follow up with [facility]: Recommended for follow-up: during AUD appts. 2. [...] treatment engagement. PLAN: 1. Follow up with [facility]: Recommended for follow-up: during AUD appts. 2. Patient goal is learn to manage sxs and improve his mental health. 3. Behavioral Recommendations a. Ind. Therapy b. Self-development c. [facility] support as needed. Assessment & Plan [...] next week and drop at front office secretary for me to review. Continue Lisinopril 7.5 [...] Description 02/21/2025 10:45 AM EDT Office Visit [address] [address] Xiao Hunter NP Sudden right hearing loss (Primary Dx); Elevated blood pressure reading in office with diagnosis of hypertension 02/21/2025 Travel 02/20/2025 Patient Outreach [address] [phone] Jose Chang Recovery Supports 02/20/[address] [phone] Brittany Saldana MD Durable Medical Equipment (DME Order: Compression Stockings) 02/20/[address] [phone] Brittany Saldana MD 02/20/[address] [address] Brittany Saldana MD Nurse Triage 02/14/2025 9:00 AM EDT Office Visit [facility] [place] [address] Migue Stephens MD Alcohol use disorder, severe, in sustained remission (CMS/HCC) (Primary Dx) 02/14/2025 Travel 02/12/2025 Refill [facility] [place] [address] Brittany Saldana MD Chronic rhinitis; Acute insomnia 02/12/2025 Refill [facility] [address] [place] [address] Brittany Saldana MD 02/07/2025 10:30 AM EDT Office Visit [facility] [place] [address] Migue Stephens MD Alcohol use disorder, severe, in sustained remission (CMS/HCC) (Primary Dx) 02/07/2025 Travel 02/06/2025 Patient Outreach [facility] [place] [address] Jose Chang Recovery Supports 01/30/2025 1:15 PM EDT Office Visit [facility] [place] [address] Brandon Caballero MD Alcohol use disorder, severe, in sustained remission (CMS/HCC) (Primary Dx) 01/30/2025 Patient Outreach [facility] [place] [address] Jose Chang Recovery Supports 01/30/2025 Travel 01/24/2025 10:30 AM EDT Office [address] [place] [address] Migue Stephens MD Alcohol use disorder, severe, in sustained remission (CMS/HCC) (Primary Dx) 01/24/2025 Travel 01/23/2025 Patient Outreach [facility] [place] [address] Jose Chang Recovery Supports 01/23/2025 Travel 01/22/2025 11:30 AM EDT Office Visit [facility] MEDICINE [address] [place] [address] [place], Alexus, MODERN AND CONTEMPORARY ART CURATOR Nodule of skin of abdomen (Primary Dx); Primary hypertension 01/22/2025 Travel 01/20/2025 Travel 2025 Refill [facility] MEDICINE [address] [place] [address] Brittany Saldana MD Mild intermittent asthma without complication 2025 Telephone [facility] MED[facility] [address] [place] [address] Brittany Saldana MD Nurse Triage 01/17/2025 10:00 AM EST Office Visit [facility] [address] [place] [address] Migue Stephens MD Alcohol use disorder, severe, in sustained remission (CMS/HCC) (Primary Dx) 01/17/2025 Telephone [facility] MEDICINE [address] [place] [address] Brittany Saldana MD 01/17/2025 Patient Outreach [facility] [address] [place] [address] Jose Chang Recovery Supports 01/17/2025 Travel 01/16/2025 Patient Outreach [facility] [address] [place] [address] Jose Chang Recovery Supports 01/11/2025 Telephone [facility] [place] [address] Brittany Saldana MD Appointment Request 01/09/2025 Refill [facility] [place] [address] Brittany Saldana MD 01/09/2025 Patient Outreach [facility] MED[facility] [address] [place] [address] Rolando Amos Recovery Supports 01/08/2025 Refill [facility] MEDICINE [address] [place] [address] Brittany Saldana MD 01/04/2025 Telephone [facility] [address] [facility] [place] [address] Brittany Saldana MD May recall 12/27/2024 10:30 AM EST Office Visit [facility] [place] [address] Migue Stephens MD Alcohol use disorder, severe, in sustained remission (CMS/HCC) (Primary Dx) 12/27/2024 Travel 12/26/2024 Patient Outreach [place] [address] Cristian Otero 12/22/2024 4:00 PM EST Office [place] [facility] [place] [address] Eb Merino MD Hemangioma of skin (Primary Dx); Neurofibromatosis (nonmalignant) (CMS/HCC) 12/22/2024 Travel 12/21/2024 Travel 12/20/2024 Telephone [place] [place] [address] Brittany Saldana MD Durable Medical Equipment (DME Reuqest: [facility] bed) 12/19/2024 1:15 PM EST Office Visit [facility] [place] [address] Brandon Caballero MD Alcohol use disorder, severe, in sustained remission (CMS/HCC) (Primary Dx) 12/19/2024 Patient Outreach [place] [address] Jose Chang Recovery Supports 12/19/2024 Travel 12/13/2024 10:30 AM EST Office Visit [facility] [place] [address] Migue Stephens MD Alcohol use disorder, severe, in sustained remission (CMS/HCC) (Primary Dx) 12/13/2024 Travel 12/12/2024 Patient Outreach [facility] [place] [address] Ted Olvera Recovery Supports 12/12/2024 Travel 12/07/2024 10:30 AM EST Office Visit [facility] [place] [place] [address] Brittany Saldana MD Essential (primary) hypertension (Primary Dx); Recurrent major depressive disorder, in partial remission (CMS/HCC); Neurofibromatosis, type 1 (von Recklinghausen's disease) ([facility]); Type 2 diabetes mellitus without complication, without long-term current use of insulin ([facility]); Lumbar radiculopathy, chronic; Polyneuropathy associated with underlying disease ([facility]) 12/07/2024 Travel 12/05/2024 Patient Outreach [facility] MEDICINE [address] [place] [address] Ted Olvera Recovery Supports 11/30/[address] [phone] Pippa Aldrich, snack foods mixer operator Question 11/30/2024 Orders Only [address] [phone] Brittany Saldana MD 11/29/2024 10:00 AM EST Office Visit [address] [phone] Migue Stephens MD Alcohol use disorder, severe, in sustained remission ([facility]) (Primary Dx) 11/29/2024 Travel 11/28/2024 Patient Outreach [facility] [address] [place] [address] Jose Chang Recovery Supports from Last 3 [...] Description 03/16/2025 2:00 PM EDT Office Visit [address] [address] Eb Merino MD [address] [place] [address] 03/20/2025 1:15 PM EDT Office Visit [address] [address] Brandon Caballero MD [address] [place] [address] 04/12/2025 11:45 AM EDT Office Visit [address] [address] Brittany Saldana MD [address] [place] [address] Health Maintenance Due Date Last Done Comments [...] Procedure Name Priority Date/Time Associated Diagnosis Comments CBC WITH AUTO DIFFERENTIAL Routine 02/21/2025 11:24 AM EDT Sudden right hearing loss HIV 1/2 ANTIGEN/ANTIBODY, FOURTH GENERATION W/RFL Routine 02/21/2025 11:24 AM EDT Sudden right hearing loss POCT GLUCOSE Routine 12/07/2024 11:19 AM EST Type 2 diabetes mellitus without complication, without long-term current use of insulin (CMS/HCC) POCT GLYCATED HEMOGLOBIN, TOTAL Routine 12/07/2024 11:19 AM EST Type 2 diabetes mellitus without complication, without long-term current use of insulin (CMS/HCC) HM COLONOSCOPY Routine 09/19/2024 ALBUMIN, RANDOM URINE W/CREATININE Routine 05/02/2024 1:17 PM EDT LIPID PANEL, STANDARD Routine 12/28/2023 9:54 AM EST ZZZ HISTORICAL HEPATITIS C AB W/REFL TO HCV RNA, QN, PCR Routine 12/09/2021 11:13 AM EST from Last 3 Months or Most Recently Relevant to Health Maintenance Results * (ABNORMAL) CBC auto differential (02/21/2025 11:24 AM EDT) White Blood Count 6.9 4.8 - 10.8 X10*3/uL [facility] Red Blood Count 3.97(L) 4.60 - 5.80 X10*6/uL [facility] Hemoglobin 12.3(L) 14.0 - 18.0 g/dl [facility] Hematocrit 36.7(L) 42.0 - 52.0 % [facility] Mean Corpuscular Volume 92.4 80.0 - 98.0 fL [facility] Mean Corpuscular Hemoglobin 31.0 27.0 - 33.0 pg [facility] Mean Corpuscular HGB Conc 33.5 31.0 - 36.0 g/dl [facility] Red Cell Distribution Width 13.6 11.0 - 16.0 % [facility] Platelet Count 180 160 - 400 X10*3/uL [facility] Mean Platelet Volume 10.9 9.4 - 12.4 fL [facility] Neutrophils Percent Auto 65.6 45 - 73 % [facility] Imm Gran Pct Auto 0.4 0.0 - 0.4 % [facility] Lymphocytes Percent Auto 21.0 20 - 40 % [facility] Monocytes Percent Auto 11.3(H) 2 - 11 % [facility] Eosinophils Percent Auto 1.3 0 - 4 % [facility] Basophils Percent Auto 0.4 0 - 2 % [facility] NRBC Pct Auto 0.0 0.0 - 0.2 /100WBC [facility] Neutrophils Absolute Auto 4.5 2.0 - 8.3 x10*3/uL [facility] Imm Gran Abs Auto 0.03 0.00 - 0.03 X10*3/uL [facility] Lymphocytes Absolute Auto 1.5 1.2 - 4.9 X10*3/uL [facility] Monocytes Absolute Auto 0.8 0.1 - 1.2 X10*3/uL [facility] Eosinophils Absolute Auto 0.1 0.0 - 0.4 X10*3/uL [facility] Basophils Absolute Auto 0.0 0.0 - 0.2 X10*3/uL [facility] NRBC Abs Auto 0.000 0.0 - 0.012 X10*3/uL [facility] Blood Venous blood specimen / Unknown 02/21/2025 11:24 AM EDT 02/21/2025 1:35 PM EDT [facility] LAB BLOOD ORDERABLES Final Resu lt Performing Organization Address City/[facility]/ZIP Co de Phone Number [facility] [address] [place] [address] [phone] * HIV-1/2 Antigen and Antibodies, Fourth Generation, with Reflexes (02/21/2025 11:24 AM EDT) HIV AB/AG Nonreactive Nonreactive [facility] Comment:HIV-1 p24 Ag and/or HIV-1/HIV-2 Ab not detected.A test result that is nonreactive does not exclude thepossibility of exposure to or infection with HIV-1 and/orHIV-2. Nonreactive results in this assay for individualswith prior exposure to HIV-1 and/or HIV-2 may be due toantigen and antibody levels that are below the limit ofdetection of this assay.The Dolosys HIV Ag/Ab Combo assay result andsupplemental assay results should be interpreted inconjunction with the patient's clinical presentation,history and other laboratory results. If the results areinconsistent with clinical evidence, additional testing issuggested to confirm the result. Blood Venous blood specimen / Unknown 02/21/2025 11:24 AM EDT 02/21/2025 1:35 PM EDT [facility] LAB BLOOD ORDERABLES Final Resu lt Performing Organization Address City/[facility]/ZIP Co de Phone Number [facility] [address] [place] [address] [phone] * POCT HGB A1C (12/07/2024 11:19 AM EST) Pathologist [facility] Hemoglobin A1C 5.1 4.0 - 6.0 % [...] (ABNORMAL) Hm Colonoscopy (09/19/2024) Colonoscopy Normal Normal [facility] Comment:poor prep Brittany Saldana MD HEALTH MAINTENANCE Final Result Performing Organization Address City/[facility]/ZIP Co de Phone Number [facility] [address] [place] [phone] * Albumin, Random Urine W/Creatinine (05/02/2024 1:17 PM EDT) Creatinine, Urine 51.26 mg/dL [facility] Microalbumin Urine 7.0 mg/L [facility] Microalbum Creatinine Ratio Ur 13.6 <30 ug/mg cr [facility] Comment:Albumin/Creatinine R atio Reference Ranges: Normal: < 30 ug/mg creatinine Microalbuminuria: 30 - 300 ug/mg creatinineClinical Albuminuria: > 300 ug/mg creatinine 05/02/2024 1:17 PM EDT 05/02/2024 3:54 PM EDT Brittany Saldana MD LAB URINE ORDERABLES Fin al Result Performing Organization Address City/[facility]/ZIP Co de Phone Number [facility] [address] [place] [phone] * (ABNORMAL) Lipid Panel, Standard (12/28/2023 9:54 AM EST) Triglycerides 71 <150 mg/dL [facility] Comment:Desirable Triglyceri de: less than 150 mg/dLBorderline High Triglyceride 150-199 mg/dLHigh Triglyceride: 200-499 mg/dLVery High Triglyceride: greater than or equal to 5OO mg/dL Cholesterol 115 <200 mg/dL [facility] Comment:Desirable Cholestero l: less than 200 mg/dLBorderline High Cholesterol: 200-239 mg/dLHigh Cholesterol: greater than 239 mg/dL LDL Cholesterol Calculated 68 <100 mg/dL [facility] Comment:Desirable LDL: less than 100 mg/dLNear Optimal/Above Optimal LDL: 110- 129 mg/dLBorderline High LDL: 130-159 mg/dLHigh LDL: 160-189 mg/dLVery High LDL: greater than or equal to 190 mg/dL HDL Cholesterol 33(L) >40 mg/dL [facility] Comment:Desirable HDL: great er than 40 mg/dL Note: This HDL assay may give artificially low results in patients with liver disease. 12/28/2023 9:54 AM EST 12/28/2023 9:54 AM EST us Generic External Data Provider LAB BLOOD ORDERAB LES Final Result Performing Organization Address City/State/[facility] Co de Phone Number [facility] [address] [place] [phone] * HEPATITIS C AB W/REFL TO HCV RNA, QN, PCR (12/09/2021 11:13 AM EST) HEPATITIS C ANTIBODY NON-REACT [facility] NON-REACT [facility] INDEX 0.03 <1.00 [facility] Comment: ?? HCV antibody was non-reactive. There is no laboratory ?? evidence of HCV infection. ?? In most cases, no further action is required. However, if recent HCV exposure is suspected, a test for HCV RNA (test code 59960) is suggested. ?? For additional information please refer to http://education.GetFeedback/faq/ZIR26x8 (This link is being provided for informational/ educational purposes only.) ?? 12/09/2021 11:1 3 AM EST us [employer] HISTORICAL/NON ORDERABLE LABS Fi nal Result [facility] [address] [place] [address], from Last 3 Months or Most Recently Relevant to Health Maintenance Insurance [facility] Care Teams Shipping Agent Relationship Specialty Start Date End Date Brittany Saldana MD [address] [place] [address] PCP - General Family Medicine 05/08/20 Darrin Hernandez FNP [address] [place] [address] Nurse Practitioner Family Medicine 10/19/23
--- OUTSIDE RECORDS SUMMARY | 2025-02-22 07:52 | XMS_ITS | Encounter Summary ---
Author Organization [employer] Address [address] [place] [address] 7 [place] [address] Care Team Providers Care Subcontracts Manager Name Role Phone Brittany Saldana MD Primary Care Provider + Darrin Hernandez Unavailable Unavailable Reason for Visit * Reason Onset Date Comments Med Refill 02/08/2024 Encounter Details Date Type Department Care Team (Late st Contact Info) Description 02/08/2024 Refill [facility] [address] [place] [address] Brittany Saldana MD [address] [place] [address] Social History Tobacco Use Types Packs/Day Years [...] the past 12 months, has t he [employer], gas, oil or water company threatened to [...] Visit [facility] MED[facility]INE [address] [place] [address] Eb Merino MD [address] [place] [address] 03/20/2025 1:15 PM EDT Office Visit [address] [address] Brandon Caballero MD [address] [place] [address] 04/12/2025 11:45 AM EDT Office Visit [facility] MED[facility] [address] [place] [address] Brittany Saldana MD [address] [place] [address] documented as of this encounter Visit Diagnoses Not on filedocumented in this encounter Additional Health Concerns Assessment Noted Time PHQ-9 Depression Total Score: 1 12/27/19 1:53 PM EST documented as of this encounter Care Teams Subcontracts Manager Relationship Specialty Start Date End Date Brittany Saldana MD [address] [place] [address] PCP - General Family Medicine 05/08/20 Darrin Hernandez FNP [address] [place] [address] Nurse Practitioner Family Medicine 10/19/23 documented as of this encounter
--- OUTSIDE RECORDS SUMMARY | 2025-02-22 07:52 | XMS_ITS | Encounter Summary ---
Author Organization [employer] Address [address] [place] [address] [address] [place] [address] Care Team Providers Care Master At Arms Name Role Phone Brittany Saldana MD Primary Care Provider + Darrin Hernandez Unavailable Unavailable Reason for Visit * Reason Onset Date Comments Med Refill 05/20/2024 Encounter Details Date Type Department Care Team (Late st Contact Info) Description 05/20/2024 Refill [facility] [address] [place] [address] Darrin Hrenandez FNP Social History Tobacco Use Types Packs/Day [...] 2:00 PM EDT Office Visit [facility] [address] [place] [address] Eb Merino MD [address] [place] [address] 03/20/2025 1:15 PM EDT Office Visit [address] [address] Brandon Caballero MD [address] [place] [address] 04/12/2025 11:45 AM EDT Office Visit [address] [address] Brittany Saldana MD [address] [place] [address] documented as of this encounter Goals Goal [...] documented as of this encounter Care Teams Master At Arms Relationship Specialty Start Date End Date Brittany Saldana MD [address] [place] [address] PCP - General Family Medicine 05/08/20 Darrin Hernandez FNP [address] [place] [address] Nurse Practitioner Family Medicine 10/19/23 documented as of this encounter
--- OUTSIDE RECORDS SUMMARY | 2025-02-22 07:52 | XMS_ITS | Encounter Summary ---
Author Organization [employer] Address [address] [place] [address] 7t [place] [address] Care Team Providers Care Shipwright Apprentice Name Role Phone Brittany Saldana MD Primary Care Provider + Darrin Hernandez Unavailable Unavailable Encounter Details Date Type Department Care Team (Late st Contact Info) Description 10/10/2024 Abstract [facility] MED[facility] [address] [place] [address] Brittany Saldnaa MD [address] [place] [address] Social History Tobacco Use Types Packs/Day Years [...] Description 03/16/2025 2:00 PM EDT Office Visit [facility] [address] [place] [address] Eb Merino MD [address] [place] [address] 03/20/2025 1:15 PM EDT Office Visit [address] [address] Brandon Caballero MD [address] [place] [address] 04/12/2025 11:45 AM EDT Office Visit [address] [address] Brittany Saldana MD [address] [place] [address] documented as of this encounter Goals Goal [...] documented as of this encounter Care Teams Shipwright Apprentice Relationship Specialty Start Date End Date Brittany Saldana MD [address] [place] [address] PCP - General Family Medicine 05/08/20 [place]arrin Hernandez FNP [address] [place] [address] Nurse Practitioner Family Medicine 10/19/23 documented as of this encounter
--- OUTSIDE RECORDS SUMMARY | 2025-02-22 07:52 | XMS_ITS | Encounter Summary ---
Author Organization [employer] Address [address] [place] [address] 7 [place] [address] Care Team Providers Care Medical Records Receptionist Name Role Phone Brittany Saldana MD Primary Care Provider + Darrin Hernandez Unavailable Unavailable Reason for Visit * Reason Comments Med Refill Encounter Details Date Type Department Care Team (Late st Contact Info) Description 07/25/2024 Refill [facility] [address] [place] [address] Brandon Caballero MD [address] [place] [address] Type 2 diabetes mellitus without complication, without long-term current use of insulin ([facility]) Social History Tobacco Use Types Packs/Day [...] Description 03/16/2025 2:00 PM EDT Office Visit [facility] [address] [place] [address] Eb Merino MD [address] [place] [address] 03/20/2025 1:15 PM EDT Office Visit [address] [address] Brandon Caballero MD [address] [place] [address] 04/12/2025 11:45 AM EDT Office Visit [address] [address] Brittany Saldana MD [address] [place] [address] documented as of this encounter Goals Goal [...] complication, without long-term current use of insulin ([facility]) documented in this encounter Additional Health Concerns Assessment Noted Time PHQ-9 Depression Total Score: 4 03/06/20 24 2:22 PM EDT documented as of this encounter Care Teams Medical Records Receptionist Relationship Specialty Start Date End Date Brittany Saldana MD [address] [place] [address] PCP - General Family Medicine 05/08/20 [place]arrin Hernandez FNP [address] [place] [address] Nurse Practitioner Family Medicine 10/19/23 documented as of this encounter
--- OUTSIDE RECORDS SUMMARY | 2025-02-22 07:52 | XMS_ITS | Encounter Summary ---
Author Organization [employer] Address [address] [place] [address] 7 [place] [address] Care Team Providers Care Software Packaging Engineer Name Role Phone Brittany Saldana MD Primary Care Provider + [place]in Hernandez Unavailable Unavailable Reason for Referral * Imaging (Urgent) - Pending Review Specialty Diagnoses / Procedures Referred By Neva santa Referred To Contact Radiology Diagnoses Sudden right hearing loss Procedures Mr Brain w/ and w/o Contrast Xiao Hunter NP [address] [place] [address] Phone: tel: fax: [address] Phone: tel: fax: Referral ID Status Reason Start Date Expiration Date V isits Requested Visits Authorized [id number] Pending Review 02/21/2025 02/21/2026 1 1 Encounter Details Date Type Department Care Team (Late st Contact Info) Description 02/21/2025 10:45 AM EDT Office Visit [facility] MED[facility]INE [address] [place] [address] Xiao Hunter NP [address] [place] [address] Sudden right hearing loss (Primary Dx); Elevated [...] BY MOUTH AT BEDTIME (FOR CHOLESTEROL) 30 [id number] buPROPion XL (Wellbutrin XL) 300 MG 24 [...] AT BEDTIME 90 capsule 11 glucose blood (Vantageous Ultra) test strip TEST BLOOD SUGAR TWICE [...] Description 03/16/2025 2:00 PM EDT Office Visit [address] [address] Eb Merino MD [address] [place] [address] 03/20/2025 1:15 PM EDT Office Visit [address] [address] Brandon Caballero MD [address] [place] [address] 04/12/2025 11:45 AM EDT Office Visit [address] [address] Brittany Saldana MD [address] [place] [address] Scheduled Orders Name Type Priority Associated Diagnoses Orde r Schedule RPR (Monitor) with Reflex to??Titer Lab Routine Sudden right hearing loss Expected: 02/21/2025, Expires: 02/21/2026 Lyme Disease Ab with Reflex to Blot (IgG, IgM) Lab Routine Sudden right hearing loss Expected: 02/21/2025, Expires: 02/21/2026 Mr Brain w/ and w/o [...] 11:24 AM EDT Sudden right hearing loss documented in this encounter Results * (ABNORMAL) CBC auto differential (02/21/2025 11:24 AM EDT) White Blood Count 6.9 4.8 - 10.8 X10*3/uL LABS Red Blood Count 3.97(L) 4.60 - 5.80 X10*6/uL LABS Hemoglobin 12.3(L) 14.0 - 18.0 g/dl LABS Hematocrit 36.7(L) 42.0 - 52.0 % LABS Mean Corpuscular Volume 92.4 80.0 - 98.0 fL LABS Mean Corpuscular Hemoglobin 31.0 27.0 - 33.0 pg LABS Mean Corpuscular HGB Conc 33.5 31.0 - 36.0 g/dl LABS Red Cell Distribution Width 13.6 11.0 - 16.0 % LABS Platelet Count 180 160 - 400 X10*3/uL LABS Mean Platelet Volume 10.9 9.4 - 12.4 fL LABS Neutrophils Percent Auto 65.6 45 - 73 % LABS Imm Gran Pct Auto 0.4 0.0 - 0.4 % LABS Lymphocytes Percent Auto 21.0 20 - 40 % LABS Monocytes Percent Auto 11.3(H) 2 - 11 % LABS Eosinophils Percent Auto 1.3 0 - 4 % LABS Basophils Percent Auto 0.4 0 - 2 % LABS NRBC Pct Auto 0.0 0.0 - 0.2 /100WBC LABS Neutrophils Absolute Auto 4.5 2.0 - 8.3 x10*3/uL LABS Imm Gran Abs Auto 0.03 0.00 - 0.03 X10*3/uL LABS Lymphocytes Absolute Auto 1.5 1.2 - 4.9 X10*3/uL LABS Monocytes Absolute Auto 0.8 0.1 - 1.2 X10*3/uL LABS Eosinophils Absolute Auto 0.1 0.0 - 0.4 X10*3/uL LABS Basophils Absolute Auto 0.0 0.0 - 0.2 X10*3/uL LABS NRBC Abs Auto 0.000 0.0 - 0.012 X10*3/uL LABS Blood Venous blood specimen / Unknown 02/21/2025 11:24 AM EDT 02/21/2025 1:35 PM EDT Xiao Hunter AIRCRAFT LAY OUT WORKER LAB BLOOD ORDERABLES Final Resu lt LABS [address] [place] [address] [phone] * HIV-1/2 Antigen and Antibodies, Fourth Generation, with Reflexes (02/21/2025 11:24 AM EDT) HIV AB/AG Nonreactive Nonreactive [facility] Comment:HIV-1 p24 Ag and/or HIV-1/HIV-2 Ab not detected.A test result that is nonreactive does not exclude thepossibility of exposure to or infection with HIV-1 and/orHIV-2. Nonreactive results in this assay for individualswith prior exposure to HIV-1 and/or HIV-2 may be due toantigen and antibody levels that are below the limit ofdetection of this assay.The [place] HIV Ag/Ab Combo assay result andsupplemental assay results should be interpreted inconjunction with the patient's clinical presentation,history and other laboratory results. If the results areinconsistent with clinical evidence, additional testing issuggested to confirm the result. Blood Venous blood specimen / Unknown 02/21/2025 11:24 AM EDT 02/21/2025 1:35 PM EDT Xiao Hunter AIRCRAFT LAY OUT WORKER LAB BLOOD ORDERABLES Final Resu lt LABS [address] [place] [address] [phone] documented in this encounter Visit Diagnoses Diagnosis Sudden right hearing loss- Primary Unspecified sudden hearing loss Elevated blood pressure reading in office with diagnosis of hypertension documented in this encounter Additional Health Concerns Assessment Noted Time PHQ-9 Depression Total Score: 2 12/07/19 25 10:39 AM EST documented as of this encounter Care Teams Software Packaging Engineer Relationship Specialty Start Date End Date Brittany Saldana MD [address] [place] [address] PCP - General Family Medicine 05/08/20 [place]in Hernandez FNP [address] [place] [address] Nurse Practitioner Family Medicine 10/19/23 documented as of this encounter
--- OUTSIDE RECORDS SUMMARY | 2025-02-22 07:52 | XMS_ITS | Encounter Summary ---
Author Organization [employer] Address [address] [place] [address] 7 [place] [address] Care Team Providers Care Family Welfare Social Work Professor Name Role Phone Brittany Saldana MD Primary Care Provider + Darrin Hernandez Unavailable Unavailable Reason for Visit * Reason Onset Date Comments Med Refill 06/19/2024 Encounter Details Date Type Department Care Team (Late st Contact Info) Description 06/19/2024 Refill [facility] [address] [place], [place] [phone] Brittany Saldana MD [address] [place] [address] Alcoholism (CMS/HCC); Essential (primary) hypertension Social History [...] 2:00 PM EDT Office Visit [facility] MEDICINE [address] [place] [address] Eb Merino MD [address] [place] [address] 03/20/2025 1:15 PM EDT Office Visit [address] [address] Brandon Caballero MD [address] [place] [address] 04/12/2025 11:45 AM EDT Office Visit [address] [address] Brittany Saldana MD [address] [place] [address] documented as of this encounter Goals Goal [...] as of this encounter Care Teams Family Welfare Social Work Professor Relationship Specialty Start Date End Date Brittany Saldana MD [address] [place] [address] PCP - General Family Medicine 05/08/20 Darrin Hernandez FNP [address] [place] [address] Nurse Practitioner Family Medicine 10/19/23 documented as of this encounter
--- OUTSIDE RECORDS SUMMARY | 2025-02-22 07:52 | XMS_ITS | Encounter Summary ---
Author Organization [employer] Address [address] [place] [address] 7 [place] [address] Care Team Providers Care Gas Distribution Supervisor Name Role Phone Brittany Saldana MD Primary Care Provider + Darrin Hernandez Unavailable Unavailable Reason for Visit * Reason Comments Med Refill Encounter Details Date Type Department Care Team (Late st Contact Info) Description 06/03/2023 Refill [facility] [address] [place] [address] Darrin Hernandez FNP Depression, unspecified depression type [...] 03/16/2025 2:00 PM EDT Office Visit [facility] 230 [place] [address] Eb Merino MD 230 [facility] [place] [address] 03/20/2025 1:15 PM EDT Office Visit [facility] MED[facility]INE [address] [place] [address] Brandon Caballero MD [address] [place], [place] 04/12/2025 11:45 AM EDT Office Visit [facility] MED[facility]INE [address] [place], [place] [address] [place] [address] [place] [address] documented as of this encounter Visit Diagnoses Diagnosis Depression, unspecified depression type documented in this encounter Additional Health Concerns Assessment Noted Time PHQ-9 Depression Total Score: 11 023 10:47 AM EDT documented as of this encounter Care Teams Gas Distribution Supervisor Relationship Specialty Start Date End Date [place] [address] PCP - General Family Medicine 05/08/20 Darrin Hernandez FNP [address] [place] [address] Nurse Practitioner Family Medicine 10/19/23 documented as of this encounter
== END 2025-02-22 07:49 | disposition home or self-care (01) ==
LOC: HO.US 07:48
PROVIDERS: PCP Internal Medicine; Visit Provider Registered Nurse
DX: R22.2 Localized swelling, mass and lump, trunk (principal)
CPT/HCPCS: 76705

== ENCOUNTER → 2025-02-22 07:52 | Outpatient (BNV) | payer OTHER, SELFPAY | PROVIDERS: PCP Internal Medicine; Visit Provider Radiology Diagnostic Radiology | DX: K42.9 Umbilical hernia without obstruction or gangrene (principal) | CPT/HCPCS: 76705 ==

== ENCOUNTER 2025-02-28 10:13 | Outpatient (REF) | payer OTHER, SELFPAY ==
--- NOTE | ~2025-02-28 | MR_ITS ---
EXAMINATION: MR BRAIN WITHOUT AND WITH CONTRAST CLINICAL INFORMATION: Sudden hearing loss. COMPARISON: September 30, 2024. TECHNIQUE: Multiplanar, multisequence MRI of the brain was obtained before and after the intravenous administration of 6.5 mL gadolinium based (Gadavist). FINDINGS: No restricted diffusion. No acute intracranial hemorrhage, mass effect, midline shift, hydrocephalus or herniation. No signal abnormality or enhancing lesion within the cochlear or the vestibular components of the 8th cranial nerves. No enhancing lesion in the cerebellopontine angle cistern or of the perimesencephalic cisterns. No enhancing lesion in the brainstem. There is a dominant left internal jugular bulb/transverse and sigmoid sinuses. There is a slightly high riding left internal jugular bulb. The anterior inferior cerebellar artery is type III on the left side and type I on the right side. The Meckel's caves demonstrated no signal abnormality or enhancing lesion. The cisternal segments and entry zones of the trigeminal nerves demonstrated no signal abnormality or enhancing lesion. Flow-void signal within the main cerebral vessels is normal. No abnormal enhancement in the intra-axial and/or extra-axial compartment of the cranium. Bilateral multifocal patchy and punctate deep periventricular white matter hyperintense T2 FLAIR signal. Prominence of the extra-axial CSF spaces cerebral sulci and ventricles. Sellar/suprasellar region demonstrated no signal abnormality or enhancing lesion. Craniocervical junction is intact and normal. There is a 1 cm lobulated and exophytic enhancing soft tissue lesion within the skin/dermis of the right occipital region. MR/MR head/brain wo/w con IMPRESSION: Slight high riding left internal jugular bulb. No vestibular schwannoma. No acute stroke. Nonspecific and stable T2 FLAIR white matter signal. 1 cm lobulated skin lesion, right occipital. Electronically signed by: Misael Caruso MD 02/28/2025 12:10 PM EDT
[2025-02-28] MEDS: gadobutroL 7.5 ML VIAL IVPUSH (11:23)
--- OUTSIDE RECORDS SUMMARY | 2025-02-28 11:51 | XMS_ITS | Encounter Summary ---
Author Organization [employer] Address [address] [place] [address] 7 [place] [address] Care Team Providers Care Surgery Manager Name Role Phone Brittany Saldana MD Primary Care Provider + Darrin Hernandez Unavailable Unavailable Reason for Visit * Reason Onset Date Comments Referral 09/02/2023 Encounter Details Date Type Department Care Team (Late st Contact Info) Description 09/02/[address] [facility] MED[facility]INE [address] [place] [address] Brittany Saldana MD [address] [place] [address] Referral Social History Tobacco Use Types Packs/Day [...] from pt requesting a new referral for Ground Products Director Specialist, pt stated needs a hearing test. documented in this encounter Plan of Treatment Upcoming Encounters Date Type Department Care Team (Late st Contact Info) Description 03/16/2025 2:00 PM EDT Office Visit [facility] MED[facility]INE [address] [place] [address] Eb Merino MD [address] [place] [address] 03/20/2025 1:15 PM EDT Office Visit [facility] MED[facility] [address] [place] [address] Brandon Caballero MD [address] [place] [address] 04/12/2025 11:45 AM EDT Office Visit [facility] [address] [place] [address] Brittany Saldana MD [address] [place] [address] documented as of this encounter Visit Diagnoses Diagnosis 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, type 1 (von Recklinghausen's disease) ([facility]) Neurofibromatosis, Type 1 (von Recklinghausen's disease) documented in this encounter Additional Health Concerns Assessment Noted Time PHQ-9 Depression Total Score: 7 07/06/20 23 2:07 PM EDT documented as of this encounter Care Teams Surgery Manager Relationship Specialty Start Date End Date Brittany Saldana MD [address] [place] [address] PCP - General Family Medicine 05/08/20 Darrin Hernandez FNP [address] [place] [address] Nurse Practitioner Family Medicine 10/19/23 documented as of this encounter
--- OUTSIDE RECORDS SUMMARY | 2025-02-28 11:51 | XMS_ITS | Encounter Summary ---
Author Organization [employer] Address [address] [place] [address] 7 [place] [address] Care Team Providers Care User Experience Researcher Name Role Phone Brittany Saldana MD Primary Care Provider + Darrin Hernandez Unavailable Unavailable Reason for Visit * Reason Comments Med Refill Encounter Details Date Type Department Care Team (Late st Contact Info) Description 06/03/2023 Refill [facility] [address] [place] [address] Darrin Hernandez FNP Depression, unspecified depression type [...] EDT Office Visit [facility] [address] [place] [address] Eb Merino MD 230 [facility] [address] 03/20/2025 1:15 PM EDT Office Visit [facility] [address] [place] [address] Brandon Caballero MD [address] [place], [place] 04/12/2025 11:45 AM EDT Office Visit [facility] [address] [place], [place] [address] [address] [place] [address] documented as of this encounter Visit Diagnoses Diagnosis Depression, unspecified depression type documented in this encounter Additional Health Concerns Assessment Noted Time PHQ-9 Depression Total Score: 11 023 10:47 AM EDT documented as of this encounter Care Teams User Experience Researcher Relationship Specialty Start Date End Date [place] [address] PCP - General Family Medicine 05/08/20 Darrin Hernandez FNP [address] [place] [address] Nurse Practitioner Family Medicine 10/19/23 documented as of this encounter
--- OUTSIDE RECORDS SUMMARY | 2025-02-28 11:51 | XMS_ITS | Encounter Summary ---
Author Organization [employer] Address [address] [place] [address] 7 [place] [address] Care Team Providers Care Auto Brake Technician Name Role Phone Brittany Saldana MD Primary Care Provider + Darrin Hernandez Unavailable Unavailable Reason for Visit * Reason Onset Date Comments Appointment 09/10/2023 Encounter Details Date Type Department Care Team (Late st Contact Info) Description 09/10/[address] [facility] [address] [place] [address] Misbah Kerraris [address] [place] [address] Appointment Social History Tobacco Use Types Packs/Day [...] cleaning appt. Last appt he had in [place] was deep leaning in September and the [...] 03/16/2025 2:00 PM EDT Office Visit [facility] MEDICINE [address] [place] [address] Eb Merino MD 230 [place] [address] 03/20/2025 1:15 PM EDT Office Visit [facility] [address] [place] [address] Brandon Caballero MD [address] [place] [address] [place] [address] 04/12/2025 11:45 AM EDT Office Visit [facility] MED[facility] [address] [place] [address] Brittany Saldana MD [address] [place] [address] documented as of this encounter Visit Diagnoses Not on filedocumented in this encounter Additional Health Concerns Assessment Noted Time PHQ-9 Depression Total Score: 4 09/06/20 11:30 AM EDT documented as of this encounter Care Teams Auto Brake Technician Relationship Specialty Start Date End Date Brittany Sadlana MD [address] [place] [address] PCP - General Family Medicine 05/08/20 Darrin Hernandez FNP [address] [place] [address] Nurse Practitioner Family Medicine 10/19/23 documented as of this encounter
--- OUTSIDE RECORDS SUMMARY | 2025-02-28 11:51 | XMS_ITS | Encounter Summary ---
Author Organization [employer] Address [address] [place] [address] 7 [place] [address] Care Team Providers Care Humanities Department Chair Name Role Phone Brittany Saldana MD Primary Care Provider + Darrin Hernandez Unavailable Unavailable Reason for Visit * Reason Comments Med Refill Encounter Details Date Type Department Care Team (Late st Contact Info) Description 04/21/2024 Refill [facility]INE [address] [place] [address] Brittany Saldana MD [address] [place] [address] Mild intermittent asthma without complication Social History [...] Description 03/16/2025 2:00 PM EDT Office Visit [facility] MED[facility]INE [address] [place] [address] bE Merino MD [address] [place] [address] 03/20/2025 1:15 PM EDT Office Visit [address] [address] Brandon Caballero MD [address] [place] [address] 04/12/2025 11:45 AM EDT Office Visit [address] [address] Brittany Saldana MD [address] [place] [address] documented as of this encounter Goals Goal [...] documented as of this encounter Care Teams Humanities Department Chair Relationship Specialty Start Date End Date Brittany Saldana MD [address] [place] [address] PCP - General Family Medicine 05/08/20 Darrin Hernandez FNP [address] [place] [address] Nurse Practitioner Family Medicine 10/19/23 documented as of this encounter
--- OUTSIDE RECORDS SUMMARY | 2025-02-28 11:51 | XMS_ITS | Patient Health Record ---
Author Organization [employer] Address [address] [facility] [address] [place] [address] Support Name Relationship Address Phone Dane Calles Guarantor Unknown [phone] Allergies Allergen (clinical drug ingredient) Drug/Non Drug [...] Disorder due to type 2 diabetes mellitus (427038820) Type 2 diabetes mellitus with unspecified complications (E11.8) Active confirmed Problem Morbid obesity (disorder) (465626165) Morbid (severe) obesity due to excess calories (E66.01) Active confirmed Problem Mixed hyperlipidemia (723297992) Mixed hyperlipidemia (E78.2) Active confirmed Problem Alcohol dependence (98831734) Alcohol dependence, uncomplicated (F10.20) Active confirmed Problem Mild recurrent major depression (68494584) Major depressive disorder, recurrent, mild (F33.0) Active confirmed Problem 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, intractable, 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) Active confirmed Problem 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, intractable, without status epilepticus (G40.219) Active confirmed Problem Obstructive sleep apnea syndrome (disorder) (09438650) Obstructive sleep apnea (adult) (pediatric) (G47.33) Active confirmed Problem Essential hypertension (69798342) Essential (primary) hypertension (I10) Active confirmed Problem Gastro-esophageal reflux disease without esophagitis (783416638) Gastro-esophageal reflux disease without esophagitis (K21.9) Active confirmed Problem Neurofibromatosis (53333655) Neurofibromatosis , 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) Active confirmed Problem Somnolence (26836631) Somnolence (R40.0) Active confirmed Problem Attention deficit hyperactivity disorder, predominantly inattentive type (disorder) (07878843) Attention and concentration deficit (R41.840) Active confirmed Problem Body mass index 40+ - severely obese (143387996) Body mass index (BMI) 40.0-44.9, adult (Z68.41) Active confirmed Problem Lower urinary tract symptoms due to benign prostatic hypertrophy (12831443689985) Benign prostatic hyperplasia with lower urinary tract symptoms (N40.1) Active confirmed Problem Morbid obesity (762524838) Morbid obesity (E66.01) Active confirmed Plan Of Treatment No Information Medical (General) History Medical History History ICD Code hypertension, benign acid reflux BPH see Urology Attention deficit disorder Neurofibromatosis complex partial seizure disorder Surgical History Surgery Date(Month/Year) Umblical hernia repair 2004 Tonsellectomy Cyst in throat removed
--- OUTSIDE RECORDS SUMMARY | 2025-02-28 11:51 | XMS_ITS | Encounter Summary ---
Author Organization [employer] Address [address] [place] [address] 7[address] [place] [address] Care Team Providers Care Undraped Artist Model Name Role Phone [place]any Saldana MD Primary Care Provider + Darrin Hernandez Unavailable Unavailable Encounter Details Date Type Department Care Team (Latest Contact Info) Description 08/07/2022 Abstract [facility] CONVERSIONS Dental, Provider, DDS Social History [...] Description 03/16/2025 2:00 PM EDT Office Visit [facility] [address] [place] [phone] Eb Merino MD [address] [place] [address] 03/20/2025 1:15 PM EDT Office Visit [facility] [address] [place] [phone] Brandon Caballero MD [address] [place] [address] [phone] 04/12/2025 11:45 AM EDT Office Visit [facility] [address] [place] [address] [phone] [place]any Saldana MD [address] [place] [phone] documented as of this encounter Visit Diagnoses Not on filedocumented in this encounter Care Teams Undraped Artist Model Relationship Specialty Start Date End Date [place]any Saldana MD [address] [place] [phone] PCP - General Family Medicine 05/08/20 Darrin Hernandez FNP [address] [place] [address] Nurse Practitioner Family Medicine 10/19/23 documented as of this encounter
--- OUTSIDE RECORDS SUMMARY | 2025-02-28 11:51 | XMS_ITS | Encounter Summary ---
Author Organization [employer] Address [address] [place] [address] 7 [place] [address] Care Team Providers Care Director Building Name Role Phone [place] Saldana MD Primary Care Provider + Darrin Hernandez Unavailable Unavailable Reason for Visit * Reason Onset Date Comments Med Refill 04/16/2024 Encounter Details Date Type Department Care Team (Late st Contact Info) Description 04/16/2024 Refill [facility] [address] [place] [address] Darrin Hernandez FNP PTSD (post-traumatic stress disorder) [...] 2:00 PM EDT Office Visit [facility] [address] [place] [address] Eb Merino MD [address] [place] [phone] 03/20/2025 1:15 PM EDT Office Visit [address] [address] Brandon Caballero MD [address] [place] [address] 04/12/2025 11:45 AM EDT Office Visit [address] [address] [place]any Saldana MD [address] [place] [address] documented as of this encounter Goals Goal [...] as of this encounter Care Teams Director Building Relationship Specialty Start Date End Date [place]any Saldana MD [address] [place] [address] PCP - General Family Medicine 05/08/20 Darrin Hernandez FNP [address] [place] [address] Nurse Practitioner Family Medicine 10/19/23 documented as of this encounter
--- OUTSIDE RECORDS SUMMARY | 2025-02-28 11:51 | XMS_ITS | Encounter Summary ---
Author Organization [employer] Address [address] [place] [address] 7 [place] [address] Care Team Providers Care Protective Signal Operator Name Role Phone [place] Saldana MD Primary Care Provider + Darrin Hernandez Unavailable Unavailable Reason for Visit * Reason Onset Date Comments r/s appt 12/24/2022 Encounter Details Date Type Department Care Team (Late st Contact Info) Description 12/24/2022 Telephone [facility] [address] [place] [address] [place]any Saldana MD [address] [place] [address] r/s appt Social History Tobacco Use Types [...] states his ride was not there ontime. Corrections Counselor tried booking but December Calender was full. Please contact pt at [phone] documented in this encounter Plan of Treatment Upcoming Encounters Date Type Department Care Team (Late st Contact Info) Description 03/16/2025 2:00 PM EDT Office Visit [facility] [address] [place] [address] Eb Merino MD [address] [place] [phone] 03/20/2025 1:15 PM EDT Office Visit [address] [address] Brandon Caballero MD [address] [place] [address] 04/12/2025 11:45 AM EDT Office Visit [address] [address] [place] Saldana MD [address] [place] [phone] documented as of this encounter Visit Diagnoses Not on filedocumented in this encounter Additional Health Concerns Assessment Noted Time PHQ-9 Depression Total Score: 9 11/05/20 22 9:37 AM EST documented as of this encounter Care Teams Protective Signal Operator Relationship Specialty Start Date End Date [place] Saldana MD [address] [place] [phone] PCP - General Family Medicine 05/08/20 Darrin Hernandez FNP [address] [place] [address] Nurse Practitioner Family Medicine 10/19/23 documented as of this encounter
--- OUTSIDE RECORDS SUMMARY | 2025-02-28 11:52 | XMS_ITS | Encounter Summary ---
Author Organization [employer] Address [address] [place] [address] 7 [place] [address] Care Team Providers Care Meter Reader Name Role Phone [place] Saldana MD Primary Care Provider + Darrin Hernandez Unavailable Unavailable Reason for Visit * Reason Onset Date Comments Med Refill 05/20/2024 Encounter Details Date Type Department Care Team (Late st Contact Info) Description 05/20/2024 Refill [facility] MED[facility]INE [address] [place] [address] Darrin Hernandez FNP Social History Tobacco Use [...] Office Visit [facility] [address] [place] [address] Eb Merino MD [address] [place] [phone] 03/20/2025 1:15 PM EDT Office Visit [address] [address] Brandon Caballero MD [address] [place] [phone] 04/12/2025 11:45 AM EDT Office Visit [address] [address] [place]any Saldana MD [address] [place] [phone] documented as of this encounter Goals Goal [...] documented as of this encounter Care Teams Meter Reader Relationship Specialty Start Date End Date [place] Saldana MD [address] [place] [address] PCP - General Family Medicine 05/08/20 Darrin Hernandez FNP [address] [place] [address] Nurse Practitioner Family Medicine 10/19/23 documented as of this encounter
--- OUTSIDE RECORDS SUMMARY | 2025-02-28 11:52 | XMS_ITS | Encounter Summary ---
Author Organization [employer] Address [address] [place] [address] 7t [place] [address] Care Team Providers Care Semiconductors Wafer Breaker Name Role Phone [place] Saldana MD Primary Care Provider + Darrin Hernandez Unavailable Unavailable Encounter Details Date Type Department Care Team (Late st Contact Info) Description 10/10/2024 Abstract [facility] MED[facility]INE [address] [place] [address] [place]any Saldana MD [address] [place] [address] Social History Tobacco Use Types Packs/Day Years [...] 2:00 PM EDT Office Visit [facility] [address] [place] [address] Eb Merino MD [address] [place] [phone] 03/20/2025 1:15 PM EDT Office Visit [address] [address] Brandon Caballero MD [address] [place] [address] 04/12/2025 11:45 AM EDT Office Visit [address] [address] [place]any Saldana MD [address] [place] [address] documented as of this encounter Goals Goal [...] documented as of this encounter Care Teams [employer]duct[employer] Wafer Breaker Relationship Specialty Start Date End Date [place] Saldana MD [address] [place] [address] PCP - General Family Medicine 05/08/20 Darrin Hernandez FNP [address] [place] [address] Nurse Practitioner Family Medicine 10/19/23 documented as of this encounter
--- OUTSIDE RECORDS SUMMARY | 2025-02-28 11:52 | XMS_ITS | Clinical Summary ---
Author Organization [facility] Address [address] [place] [address] Care Team Providers Care Barrel Lathe Operator Name Role Phone Samantha Faye MD Primary Care Provider [phone] Social History Tobacco Use Types Packs/Day Years [...] age to complete this topic Care Teams Barrel Lathe Operator Relationship Specialty Start Date End Date Samantha Faye MD [address] [place] [phone] PCP - General 05/08/21
--- OUTSIDE RECORDS SUMMARY | 2025-02-28 11:52 | XMS_ITS | Clinical Summary ---
Author Organization [employer] Address [address] [place] [address] 7 [place] [address] Care Team Providers Care Panel Gluer Name Role Phone Brittany Saldana MD Primary [...] complication, without long-term current use of insulin ([facility]) Use 1 lancet to monitor blood glucose [...] g 08/11/20 24 025 Active glucose blood (EasyPropertyuch Ultra) test stripIndication s:Type 2 diabetes mellitus without complication, without long-term current use of insulin ([facility]) TEST BLOOD SUGAR TWICE DAILY 100 strip [...] complication, without long-term current use of insulin ([facility]) TAKE ONE CAPSULE BY MOUTH EVERY MORNING, [...] AM EDT): - [place] [facility] [place] weight management program - will [...] exercise, life style modifications, diet, referral to electronic publications specialist. Discussed re lower calorie intake, increase [...] fu with . Order TSH/testosterone levels, psychiatric tech input appreciated. Iliopsoas bursitis of left hip [...] IZs -RSV pending not available today in [facility] pharmacy Advise to have it at earliest [...] management. For any issues or concerns contact [facility]. Continue with therapist as usual. I have [...] he he was not contacted yet, per support specialist, Kalyan reid contact him on 05/11/23 [...] for 6 months. He will be Contacting [facility] for him to engage in Ind. Therapy [...] treatment engagement. PLAN: 1. Follow up with [facility]: Recommended for follow-up: during AUD appts. 2. [...] treatment engagement. PLAN: 1. Follow up with [facility]: Recommended for follow-up: during AUD appts. 2. Patient goal is learn to manage sxs and improve his mental health. 3. Behavioral Recommendations a. Ind. Therapy b. Self-development c. [facility] support as needed. Assessment & Plan (03/25/2023 [...] BP records next week and drop at first front ventilator for me to review. Continue Lisinopril 7.5 [...] Encounters Date Type Department Care Team Description 02/27/2025 Patient Outreach [facility] [address] [place] [phone] Ted Olvera Recovery Supports 02/26/2025 Telephone [facility] [address] [place] [phone] Brittany Saldana MD Results 02/26/2025 Orders Only [facility] [address] [place] [phone] Patrick, Alexus, TOOL MAINTENANCE WORKER Other specified abdominal hernia without obstruction or gangrene (Primary Dx) 02/21/2025 10:45 AM EDT Office Visit [facility] [address] [place] [phone] Xiao Hunter NP Sudden right hearing loss (Primary Dx); Elevated blood pressure reading in office with diagnosis of hypertension 02/21/2025 Travel 02/20/2025 Patient Outreach [address] [address] Jose Chang Recovery Supports 02/20/[address] [phone] Brittany Saldana MD Durable Medical Equipment (DME Order: Compression Stockings) 02/20/[address] [phone] Brittany Saldana MD 02/20/[address] [phone] Brittany Saldana MD Nurse Triage 02/14/2025 9:00 AM EDT Office Visit [address] [address] Migue Stephens MD Alcohol use disorder, severe, in sustained remission (CMS/HCC) (Primary Dx) 02/14/2025 Travel 02/12/[address] [address] Brittany Saldana MD Chronic rhinitis; Acute insomnia 02/12/2025 Refill [facility] [address] [place] [address] Brittany Saldana MD 02/07/2025 10:30 AM EDT Office Visit [address] [address] Migue Stephens MD Alcohol use disorder, severe, in sustained remission (CMS/HCC) (Primary Dx) 02/07/2025 Travel 02/06/2025 Patient Outreach [address] [address] Jose Chang Recovery Supports 01/30/2025 1:15 PM EDT Office Visit [address] [address] Brandon Caballero MD Alcohol use disorder, severe, in sustained remission (CMS/HCC) (Primary Dx) 01/30/2025 Patient Outreach [address] [phone] Jose Chang Recovery Supports 01/30/2025 Travel 01/24/2025 10:30 AM EDT Office Visit [facility] [address] [place] [address] Migue Stephens MD Alcohol use disorder, severe, in sustained remission (CMS/HCC) (Primary Dx) 01/24/2025 Travel 01/23/2025 Patient Outreach [facility] [place] [address] Jose Chang Recovery Supports 01/23/2025 Travel 01/22/2025 11:30 AM EDT Office Visit [facility] [place] [address] Franklin, Alexus, TOOL MAINTENANCE WORKER Nodule of skin of abdomen (Primary Dx); Primary hypertension 01/22/2025 Travel 01/20/2025 Travel 2025 Refill [facility] [place] [address] Brittany Saldana MD Mild intermittent asthma without complication 2025 Telephone [facility] [place] [address] Brittany Saldana MD Nurse Triage 01/17/2025 10:00 AM EST Office Visit [facility] [place] [address] Migue Stephens MD Alcohol use disorder, severe, in sustained remission (CMS/HCC) (Primary Dx) 01/17/2025 Telephone [facility] [place] [address] Brittany Saldana MD 01/17/2025 Patient Outreach [facility] [place] [address] Jose Chang Recovery Supports 01/17/2025 Travel 01/16/2025 Patient Outreach [facility] [place] [address] Jose Chang Recovery Supports 01/11/2025 Telephone [facility] [place] [address] Brittany Saldana MD Appointment Request 01/09/2025 Refill [facility] [place] [address] Brittany Saldana MD 01/09/2025 Patient Outreach [facility] [place] [address] Rolando Amos Recovery Supports 01/08/2025 Refill [facility] [place] [place] [address] Brittany Saldana MD 01/04/[address] [address] Brittany Saldana MD March recall 12/27/2024 10:30 AM EST Office [address] [place] [address] Migue Stephens MD Alcohol use disorder, severe, in sustained remission (CMS/HCC) (Primary Dx) 12/27/2024 Travel 12/26/2024 Patient Outreach [facility] [place] [address] Cristian Otero 12/22/2024 4:00 PM EST Office Visit [address] [place] [address] Eb Merino MD Hemangioma of skin (Primary Dx); Neurofibromatosis (nonmalignant) (CMS/HCC) 12/22/2024 Travel 12/21/2024 Travel 12/20/2024 Telephone [facility] [place] [address] Brittany Saldana MD Durable Medical Equipment (DME Reuqest: [facility] bed) 12/19/2024 1:15 PM EST Office Visit [facility] [place] [address] Brandon Caballero MD Alcohol use disorder, severe, in sustained remission (CMS/HCC) (Primary Dx) 12/19/2024 Patient Outreach [facility] [place] [address] Jose Chang Recovery Supports 12/19/2024 Travel 12/13/2024 10:30 AM EST Office Visit [address] [address] Migue Stephens MD Alcohol use disorder, severe, in sustained remission (CMS/HCC) (Primary Dx) 12/13/2024 Travel 12/12/2024 Patient Outreach [facility] [address] [facility] [place] [address] Ted Olvera Recovery Supports 12/12/2024 Travel 12/07/2024 10:30 AM EST Office Visit [facility] [address] [facility] [place] [place] [address] Brittany Saldana MD Essential (primary) hypertension (Primary Dx); Recurrent major depressive disorder, in partial remission (CMS/HCC); Neurofibromatosis, type 1 (von Recklinghausen's disease) (CMS/HCC); Type 2 diabetes mellitus without complication, without long-term current use of insulin (CMS/HCC); Lumbar radiculopathy, chronic; Polyneuropathy associated with underlying disease (CMS/HCC) 12/07/2024 Travel 12/05/2024 Patient Outreach [facility] [address] [place] [address] Ted Olvera Recovery Supports 11/30/[address] [address] Pippa Aldrich, security intern Question 11/30/2024 Orders Only [address] [phone] Brittany Saldana MD from Last 3 Months Immunizations Name Administration [...] Office Visit [facility] [address] [place] [address] Eb Merino MD [address] [place] [address] 03/20/2025 1:15 PM EDT Office Visit [address] [address] Brandon Caballero MD [address] [place] [address] 04/12/2025 11:45 AM EDT Office Visit [address] [address] Brittany Saldana MD [address] [place] [address] Health Maintenance Due Date Last Done Comments CT Colonography 1957 Dental Oral Exam 1957 Dental Prophylaxis 1957 Dental X-Ray: Bitewings 1957 Dental X-Ray: Full Mouth 1957 FIT DNA/Cologuard 1957 FIT 1957 FOBT 1957 Sigmoidoscopy 1957 Lipid Panel 12/28/2024 12/28/2023, 02/13, 07/14/2022, Additional history exists Diabetes: Urine Protein [...] Procedure Name Priority Date/Time Associated Diagnosis Comments US ABDOMEN LIMITED Routine 02/22/2025 11 :10 AM EDT Nodule of skin of abdomen CBC WITH AUTO DIFFERENTIAL Routine 02/21/2025 11:24 AM EDT Sudden right hearing loss HIV 1/2 ANTIGEN/ANTIBODY, FOURTH GENERATION W/RFL Routine 02/21/2025 11:24 AM EDT Sudden right hearing loss LYME DISEASE AB W/REFL TO BLOT (IGG, IGM) Routine 02/21/2025 11:24 AM EDT Sudden right hearing loss RPR (MONITOR) W/REFL TITER Routine 02/21/2025 11:24 AM EDT Sudden right hearing loss POCT GLUCOSE Routine 12/07/2024 11:19 AM EST Type 2 diabetes mellitus without complication, without long-term current use of insulin ([facility]) POCT GLYCATED HEMOGLOBIN, TOTAL Routine 12/07/2024 11:19 AM EST Type 2 diabetes mellitus without complication, without long-term current use of insulin (CMS/[facility]) HM COLONOSCOPY Routine 09/19/2024 ALBUMIN, RANDOM URINE W/CREATININE Routine 05/02/2024 1:17 PM EDT LIPID PANEL, STANDARD Routine 12/28/2023 9:54 AM EST ZZZ HISTORICAL HEPATITIS C AB W/REFL TO HCV RNA, QN, PCR Routine 12/09/2021 11:13 AM EST from Last 3 Months or Most Recently Relevant to Health Maintenance Results * US Abdomen Limited (02/22/2025 11:10 AM EDT) Anatomical Region Laterality Modality Abdomen Ultrasound 02/22/2025 11:1 0 AM EDT Narrative 02/22/2025 11:12 AM EDT ? [facility] ?[address] ?[place] [address] ? Ultrasound Report ? Signed ? Patient: Dane Calles ?MR#: [id number] ?? 89 ? : 1955 ?Acct:[id number] ? Age/Sex: 70 / M ?ADM Date: 02/22/25 ? Loc: HO.US ? Attending Dr: Alexus ZAFAR ? Ordering Physician: Alexus Nguyen ?? Date of Service: 02/22/25 ?? Procedure(s): US abdomen limited ?? Accession Number(s): [id number] ? cc: Brittany Saldana MD; Alexus Nguyen ? CLINICAL HISTORY: hx of umbilical hernia repairs, with new firm deep seated nodule over umbil ? US abdominal wall nonvascular ? Comparison: 01/18/2024 ? Findings: ?? Sonographic evaluation in the area of clinical concern periumbilical ?? region demonstrates a fascial defect supraumbilical region with probable ?? omentum crossing the defect into the subcutaneous soft tissue measuring ?? 1.3 cm in diameter the fascial defect is considerably smaller than the ?? hernia sac. The patient was scanned supine sitting and upright and shows ?? no significant interval change ? Impression: ?? A supraumbilical ventral probable abdominal wall hernia containing omentum ?? that did not self reduce. CT would be confirmatory. Soft tissue mass not ?? excluded ? This document has been electronically signed by: Richy Castellanos MD on ?? 02/22/2025 11:10:38 ? Dictated By: ?Richy Castellanos MD ? Signed By: ?<Electronically signed by Richy Castellanos MD in OV> ?02/22/25 1111 ? DD/ 1110 ? TD/TT: 02/22/25 1110 ? Mail Teller: ? Procedure Note Lior, Image - 02/22/2025 [place] [address] Ultrasound Report Signed Patient: Dane Calles JMR#: [id number] [birth year] : 7Acct:[id number] Age/Sex: 70 / MADM Date: 02/22/25 Loc: HO.US Attending Dr: Alexus ZAFAR Ordering Physician: Alexus Nguyen Date of Service: 02/22/25 Procedure(s): US abdomen limited Accession Number(s): [id number] cc: Brittany Saldana MD; Alexus Nguyen CLINICAL HISTORY: hx of umbilical hernia repairs, with new firm deepseated nodule over umbil US abdominal wall nonvascular Comparison: 01/18/2024 Findings: Sonographic evaluation in the area of clinical concern periumbilical region demonstrates a fascial defect supraumbilical region with probable omentum crossing the defect into the subcutaneous soft tissue measuring 1.3 cm in diameter the fascial defect is considerably smaller than the hernia sac. The patient was scanned supine sitting and upright and shows no significant interval change Impression: A supraumbilical ventral probable abdominal wall hernia containing omentum that did not self reduce. CT would be confirmatory. Soft tissue mass not excluded This document has been electronically signed by: Richy Castellanos MD on 02/22/2025 11:10:38 Dictated By: Richy Castellanos MD Signed By: <Electronically signed by Richy Castellanos MD in OV> 02/22/25 1111 DD/ 1110 TD/TT: 02/22/25 1110 Mail Teller: [facility] TOOL MAINTENANCE WORKER IMG US PROCEDURES Final Resul t * Lyme Disease Ab with Reflex to Blot (IgG, IgM) (02/21/2025 11:24 AM EDT) [facility] Lyme Antibody Screen <0.90 index [facility] Comment:Index Interpretation ----- < 0.90 Negative 0.90-1.09 Equivocal > 1.09 PositiveAs recommended by the Food and Drug Administration(FDA), all samples with positive or equivocalresults in a Borrelia burgdorferi antibody screenwill be tested using a blot method. Positive orequivocal screening test results should not beinterpreted as truly positive until verified as suchusing a supplemental assay (e.g., B. burgdorferi blot).The screening test and/or blot for B. burgdorferiantibodies may be falsely negative in early stagesof Lyme disease, including the period when erythemamigrans is apparent.THIS TEST WAS PERFORMED AT:[facility] [place] [phone] ZHAO MD Lyme Blot TNP [facility] 02/21/2025 11:2 4 AM EDT 02/21/2025 1:35 PM EDT Xiao Hunter NP LAB BLOOD ORDERABLES Final Resu lt [facility] [address] [place] [phone] * (ABNORMAL) CBC auto differential (02/21/2025 11:24 AM EDT) [facility] White Blood Count 6.9 4.8 - 10.8 X10*3/uL [facility] Red Blood Count 3.97(L) 4.60 - 5.80 X10*6/uL [facility] Hemoglobin 12.3(L) 14.0 - 18.0 g/dl [facility] Hematocrit 36.7(L) 42.0 - 52.0 % [facility] Mean Corpuscular Volume 92.4 80.0 - 98.0 fL [facility] Mean Corpuscular Hemoglobin 31.0 27.0 - 33.0 pg [facility] Mean Corpuscular HGB Conc 33.5 31.0 - 36.0 g/dl [facility] Red Cell Distribution Width 13.6 11.0 - 16.0 % [facility] Platelet Count 180 160 - 400 X10*3/uL [facility] Mean Platelet Volume 10.9 9.4 - 12.4 fL [facility] Neutrophils Percent Auto 65.6 45 - 73 % [facility] Imm Gran Pct Auto 0.4 0.0 - 0.4 % [facility] Lymphocytes Percent Auto 21.0 20 - 40 % [facility] Monocytes Percent Auto 11.3(H) 2 - 11 % [facility] Eosinophils Percent Auto 1.3 0 - 4 % [facility] Basophils Percent Auto 0.4 0 - 2 % [facility] NRBC Pct Auto 0.0 0.0 - 0.2 /100WBC [facility] Neutrophils Absolute Auto 4.5 2.0 - 8.3 x10*3/uL [facility] Imm Gran Abs Auto 0.03 0.00 - 0.03 X10*3/uL [facility] Lymphocytes Absolute Auto 1.5 1.2 - 4.9 X10*3/uL [facility] Monocytes Absolute Auto 0.8 0.1 - 1.2 X10*3/uL [facility] Eosinophils Absolute Auto 0.1 0.0 - 0.4 X10*3/uL [facility] Basophils Absolute Auto 0.0 0.0 - 0.2 X10*3/uL [facility] NRBC Abs Auto 0.000 0.0 - 0.012 X10*3/uL [facility] Blood Venous blood specimen / Unknown 02/21/2025 11:24 AM EDT 02/21/2025 1:35 PM EDT us Xiao Hunter NP LAB BLOOD ORDERABLES Final Resu lt [facility] [address] [place] [address] [phone] * RPR (Monitor) with Reflex to??Titer (02/21/2025 11:24 AM EDT) RPR (Monitor) w/Refl Titer NON-REACTI VE NON-REACT JAMES [facility] Comment:THIS TEST WAS PERFOR MED AT:[facility] [place] [phone] ZHAO MD Rapid Plasma Reagin Ab Titer TNP [facility] Blood Venous blood specimen / Unknown 02/21/2025 11:24 AM EDT 02/21/2025 1:35 PM EDT [facility] BLOOD ORDERABLES Final Resu lt [facility] [address] [place] [address] [phone] * HIV-1/2 Antigen and Antibodies, Fourth Generation, with Reflexes (02/21/2025 11:24 AM EDT) HIV AB/AG Nonreactive Nonreactive [facility] Comment:HIV-1 p24 Ag and/or HIV-1/HIV-2 Ab not detected.A test result that is nonreactive does not exclude thepossibility of exposure to or infection with HIV-1 and/orHIV-2. Nonreactive results in this assay for individualswith prior exposure to HIV-1 and/or HIV-2 may be due toantigen and antibody levels that are below the limit ofdetection of this assay.The [employer] HIV Ag/Ab Combo assay result andsupplemental assay results should be interpreted inconjunction with the patient's clinical presentation,history and other laboratory results. If the results areinconsistent with clinical evidence, additional testing issuggested to confirm the result. Blood Venous blood specimen / Unknown 02/21/2025 11:24 AM EDT 02/21/2025 1:35 PM EDT [facility] LAB BLOOD ORDERABLES Final Resu lt [facility] [address] [place] [address] [phone] * POCT HGB A1C (12/07/2024 11:19 AM EST) Hemoglobin A1C 5.1 4.0 - 6.0 % Blood 12/07/2024 11:1 9 AM EST us Brittany Saldana MD POINT OF CARE TEST ENTER /EDIT ORDERABLES Final Result * POCT Glucose (12/07/2024 11:19 AM EST) Glucose Blood, POC 105 60 - 200 mg/dL Blood Capillary blood specimen / Unknown 12/07/2024 11:19 AM EST us Brittany Saldana MD POINT OF CARE TEST ENTER /EDIT ORDERABLES Final Result * (ABNORMAL) Hm Colonoscopy (09/19/2024) Colonoscopy Normal Normal [facility] Comment:poor prep Brittany Saldana MD HEALTH MAINTENANCE Final Result Performing Organization Address [facility] Co de Phone Number [facility] [address] [place] [address] [phone] * Albumin, Random Urine W/Creatinine (05/02/2024 1:17 PM EDT) Creatinine, Urine 51.26 mg/dL [facility] Microalbumin Urine 7.0 mg/L [facility] Microalbum Creatinine Ratio Ur 13.6 <30 ug/mg cr [facility] Comment:Albumin/Creatinine R at Reference Ranges: Normal: < 30 ug/mg creatinine Microalbuminuria: 30 - 300 ug/mg creatinineClinical Albuminuria: > 300 ug/mg creatinine 05/02/2024 1:17 PM EDT 05/02/2024 3:54 PM EDT us Brittany Saldana MD LAB URINE ORDERABLES Fin al Result Performing Organization Address City/[facility]/ZIP Co de Phone Number [facility] [address] [place] [address] [phone] * (ABNORMAL) Lipid Panel, Standard (12/28/2023 9:54 AM EST) Triglycerides 71 <150 mg/dL [facility] Comment:Desirable Triglyceri de: less than 150 mg/dLBorderline High Triglyceride 150-199 mg/dLHigh Triglyceride: 200-499 mg/dLVery High Triglyceride: greater than or equal to 5OO mg/dL Cholesterol 115 <200 mg/dL [facility] Comment:Desirable Cholestero l: less than 200 mg/dLBorderline High Cholesterol: 200-239 mg/dLHigh Cholesterol: greater than 239 mg/dL LDL Cholesterol Calculated 68 <100 mg/dL [facility] Comment:Desirable LDL: less than 100 mg/dLNear Optimal/Above Optimal LDL: 110- 129 mg/dLBorderline High LDL: 130-159 mg/dLHigh LDL: 160-189 mg/dLVery High LDL: greater than or equal to 190 mg/dL HDL Cholesterol 33(L) >40 mg/dL [facility] Comment:Desirable HDL: great er than 40 mg/dL Note: This HDL assay may give artificially low results in patients with liver disease. 12/28/2023 9:54 AM EST 12/28/2023 9:54 AM EST us Generic External Data Provider LAB BLOOD ORDERAB LES Final Result Performing Organization Address City/[facility]/ZIP Co de Phone Number [facility] [address] [place] [phone] [phone] * HEPATITIS C AB W/REFL TO [...] a test for HCV RNA (test code 58582) is suggested. ?? For additional information please refer to http://iWatt.Shoobs/faq/PDM58y2 (This link is being provided for informational/ educational purposes only.) ?? 12/09/2021 11:1 3 AM EST us Lulu Garcia ANP HISTORICAL/NON ORDERABLE LABS Fi nal Result [facility] [address] from Last 3 Months or Most Recently Relevant to Health Maintenance Insurance [facility] Care Teams Panel Gluer Relationship Specialty Start Date End Date Brittany Saldana MD [address] [place], [place] [phone] PCP - General Family Medicine 05/08/20 Darrin Hernandez FNP [address] [place] [phone] Nurse Practitioner Family Medicine 10/19/23
--- OUTSIDE RECORDS SUMMARY | 2025-02-28 11:52 | XMS_ITS | Encounter Summary ---
Author Organization [employer] Address [address] [place] [address] 7 [place] [address] Care Team Providers Care Applications Programmer Name Role Phone Brittany Saldana MD Primary Care Provider + Darrin Hernandez Unavailable Unavailable Reason for Visit * Reason Onset Date Comments Med Refill 06/11/2024 Encounter Details Date Type Department Care Team (Late st Contact Info) Description 06/11/2024 Refill [facility] [address] [place], [place] [phone] Brittany Saldana MD [address] [place] [address] Social History Tobacco Use Types Packs/Day Years [...] EDT Office Visit [facility] [address] [place] [phone] Eb Merino MD [address] [place] [phone] 03/20/2025 1:15 PM EDT Office Visit [address] [address] Brandon Caballero MD [address] [place] [phone] 04/12/2025 11:45 AM EDT Office Visit [address] [address] Brittany Saldana MD [address] [place] [phone] documented as of this encounter Goals Goal [...] documented as of this encounter Care Teams Applications Programmer Relationship Specialty Start Date End Date Brittany Saldana MD [address] [place] [phone] PCP - General Family Medicine 05/08/20 Darrin Hernandez FNP [address] [place] [phone] Nurse Practitioner Family Medicine 10/19/23 documented as of this encounter
--- OUTSIDE RECORDS SUMMARY | 2025-02-28 11:52 | XMS_ITS | Encounter Summary ---
Author Organization [employer] Address [address] [place] [address] 7t [place] [address] Care Team Providers Care Business Improvement Manager Name Role Phone Brittany Saldana MD Primary Care Provider + Darrin Hernandez Unavailable Unavailable Reason for Visit * Reason Onset Date Comments Durable Medical Equipment 02/17/2023 Encounter Details Date Type Department Care Team (Late st Contact Info) Description 02/17/2023 Telephone [facility] 230 [place] [address] Brittany Saldana MD 230 [place] [address] Durable Medical Equipment Social History Tobacco Use [...] . Pt requested to be sent to [facility] . Any questions please contact pt at [phone]. documented in this encounter Plan of Treatment Upcoming Encounters Date Type Department Care Team (Late st Contact Info) Description 03/16/2025 2:00 PM EDT Office Visit [facility] [address] [place] [address] Eb Merino MD [address] [place] [address] 03/20/2025 1:15 PM EDT Office Visit [address] [address] Brandon Caballero MD [address] [place] [address] 04/12/2025 11:45 AM EDT Office Visit [address] [address] Brittany Saldana MD [address] [place] [address] documented as of this encounter Visit Diagnoses Not on filedocumented in this encounter Additional Health Concerns Assessment Noted Time PHQ-9 Depression Total Score: 10 023 10:47 AM EDT documented as of this encounter Care Teams Business Improvement Manager Relationship Specialty Start Date End Date Brittany Saldana MD [address] [place] [address] PCP - General Family Medicine 05/08/20 Darrin Hernandez FNP 230 [place] [address] Nurse Practitioner Family Medicine 10/19/23 documented as of this encounter
--- OUTSIDE RECORDS SUMMARY | 2025-02-28 11:52 | XMS_ITS | Encounter Summary ---
Author Organization [employer] Address [address] [place] [address] 7 [place] [address] Care Team Providers Care Salesperson Art Objects Name Role Phone Brittany Saldana MD Primary Care Provider + Darrin Hernandez Unavailable Unavailable Reason for Visit * Reason Onset Date Comments Med Refill 06/15/2024 Encounter Details Date Type Department Care Team (Late st Contact Info) Description 06/15/2024 Refill [facility] 230 [place], [place] [phone] Brittany Saldana MD 230 [place] [address] Acute insomnia Social History Tobacco Use Types [...] Description 03/16/2025 2:00 PM EDT Office Visit [facility] [address] [place] [address] Eb Merino MD [address] [place] [address] 03/20/2025 1:15 PM EDT Office Visit [address] [address] Brandon Caballero MD [address] [place] [address] 04/12/2025 11:45 AM EDT Office Visit [address] [address] Brittany Saldana MD [address] [place] [address] documented as of this encounter Goals Goal [...] documented as of this encounter Care Teams Salesperson Art Objects Relationship Specialty Start Date End Date Brittany Saldana MD [address] [place] [address] PCP - General Family Medicine 05/08/20 Darrin Hernandez FNP [address] [place] [address] Nurse Practitioner Family Medicine 10/19/23 documented as of this encounter
--- OUTSIDE RECORDS SUMMARY | 2025-02-28 11:52 | XMS_ITS | Encounter Summary ---
Author Organization [employer] Address [address] [place] [address] 7 [place] [address] Care Team Providers Care Director Of Accounting Name Role Phone Brittany Saldana MD Primary Care Provider + Darrin Hernandez Unavailable Unavailable Reason for Visit * Reason Onset Date Comments Med Refill 08/11/2024 Encounter Details Date Type Department Care Team (Late st Contact Info) Description 08/11/2024 Refill [facility] 230 [place] [address] Brittany Saldana MD 230 [place] [address] Mild intermittent asthma without complication Social History [...] Description 03/16/2025 2:00 PM EDT Office Visit [facility] [address] [place] [address] Eb Merino MD [address] [place] [address] 03/20/2025 1:15 PM EDT Office Visit [address] [address] Brandon Caballero MD [address] [place] [address] 04/12/2025 11:45 AM EDT Office Visit [address] [address] Brittany Saldana MD [address] [place] [address] documented as of this encounter Goals Goal [...] as of this encounter Care Teams Director Of Accounting Relationship Specialty Start Date End Date Brittany Saldana MD 230 [place] [address] PCP - General Family Medicine 05/08/20 Darrin Hernandez FNP [address] [place] [address] Nurse Practitioner Family Medicine 10/19/23 documented as of this encounter
--- OUTSIDE RECORDS SUMMARY | 2025-02-28 11:52 | XMS_ITS | Encounter Summary ---
Author Organization [employer] Address [address] [place] [address] 7t [place] [address] Care Team Providers Care Corporate Travel Coordinator Name Role Phone Brittany Saldana MD Primary Care Provider + Darrin Hernandez Unavailable Unavailable Reason for Visit * Reason Onset Date Comments Durable Medical Equipment 02/15/2023 Encounter Details Date Type Department Care Team (Late st Contact Info) Description 02/15/2023 Telephone [facility] 230 [place] [address] Brittany Saldana MD 230 [place] [address] Durable Medical Equipment Social History Tobacco Use [...] 03/16/2025 2:00 PM EDT Office Visit [facility] [address] [place] [address] Eb Merino MD [address] [place] [address] 03/20/2025 1:15 PM EDT Office Visit [address] [address] Brandon Caballero MD [address] [place] [address] 04/12/2025 11:45 AM EDT Office Visit [address] [address] Brittany Saldana MD [address] [place] [address] documented as of this encounter Visit Diagnoses Not on filedocumented in this encounter Additional Health Concerns Assessment Noted Time PHQ-9 Depression Total Score: 10 023 10:47 AM EDT documented as of this encounter Care Teams Corporate Travel Coordinator Relationship Specialty Start Date End Date Brittany Saldana MD [address] [place] [address] PCP - General Family Medicine 05/08/20 Darrin Hernandez FNP 230 [place] [address] Nurse Practitioner Family Medicine 10/19/23 documented as of this encounter
--- OUTSIDE RECORDS SUMMARY | 2025-02-28 11:52 | XMS_ITS | Encounter Summary ---
Author Organization [employer] Address [address] [place] [address] 7 [place] [address] Care Team Providers Care Chief Of Internal Medicine Name Role Phone Brittany Saldana MD Primary Care Provider + Darrin Hernandez Unavailable Unavailable Reason for Visit * Reason Onset Date Comments Med Refill 01/09/2025 Encounter Details Date Type Department Care Team (Late st Contact Info) Description 01/09/2025 Refill [facility] 230 [place], [place] [phone] Brittany Saldana MD 230 [place] [address] Social History Tobacco Use Types Packs/Day Years [...] Office Visit [facility] [address] [place] [address] Eb Merino MD [address] [place] [address] 03/20/2025 1:15 PM EDT Office Visit [address] [address] Brandon Caballero MD [address] [place] [address] 04/12/2025 11:45 AM EDT Office Visit [address] [address] Brittany Saldana MD [address] [place] [address] documented as of this encounter Goals Goal [...] documented as of this encounter Care Teams Chief Of Internal Medicine Relationship Specialty Start Date End Date Brittany Saldana MD [address] [place] [address] PCP - General Family Medicine 05/08/20 Darrin Hernandez FNP [address] [place] [address] Nurse Practitioner Family Medicine 10/19/23 documented as of this encounter
--- OUTSIDE RECORDS SUMMARY | 2025-02-28 11:52 | XMS_ITS | Encounter Summary ---
Author Organization [employer] Address [address] [place] [address] 7 [place] [address] Care Team Providers Care Certified Nuclear Medicine Technologist Name Role Phone Brittany Saldana MD Primary Care Provider + Darrin Hernandez Unavailable Unavailable Reason for Visit * Reason Comments Med Refill Encounter Details Date Type Department Care Team (Late st Contact Info) Description 07/25/2024 Refill [facility] 230 [place] [address] Brandon Caballero MD 230 [place] [address] Type 2 diabetes mellitus without complication, without long-term current use of insulin ([facility]) Social History [...] Description 03/16/2025 2:00 PM EDT Office Visit [facility] [address] [place] [address] Eb Merino MD [address] [place] [address] 03/20/2025 1:15 PM EDT Office Visit [address] [address] Brandon Caballero MD [address] [place] [address] 04/12/2025 11:45 AM EDT Office Visit [address] [address] Brittany Saldana MD [address] [place] [address] documented as of this encounter Goals Goal [...] complication, without long-term current use of insulin ([facility]) documented in this encounter Additional Health Concerns Assessment Noted Time PHQ-9 Depression Total Score: 4 03/06/20 24 2:22 PM EDT documented as of this encounter Care Teams Certified Nuclear Medicine Technologist Relationship Specialty Start Date End Date Brittany Saldana MD 230 [place] [address] PCP - General Family Medicine 05/08/20 Darrin Hernandez FNP 230 [place] [address] Nurse Practitioner Family Medicine 10/19/23 documented as of this encounter
--- OUTSIDE RECORDS SUMMARY | 2025-02-28 11:52 | XMS_ITS | Encounter Summary ---
Author Organization [employer] Address [address] [place] [address] 7 [place] [address] Care Team Providers Care Auctioneer Tobacco Name Role Phone Brittany Saldana MD Primary Care Provider + Darrin Hernandez Unavailable Unavailable Reason for Referral * Consultation (Routine) - Authorized Specialty Diagnoses / Procedures Referred By Neva santa Referred To Contact General Surgery Diagnoses Other specified abdominal hernia without obstruction or gangrene Alexus Nguyen FNP 230 [place] [address] Phone: tel: fax: Dane Vazquez MD [address] [place] [address] [address] [place] [address] Phone: tel: fax: Referral ID Status Reason Start Date Expiration Date Visits Requested Visits Authorized [id number] Authorized Specialty Services Required 02/26/2025 02/26/2026 1 1 Encounter Details Date Type Department Care Team (Late st Contact Info) Description 02/26/2025 Orders Only [facility] 230 [place] [address] Alexus Nguyen FNP [address] [place] [address] Other specified abdominal hernia without obstruction or gangrene (Primary Dx) Social History Tobacco Use Types [...] Upcoming Encounters Date Type Department Care Team ([facility] st Contact Info) Description 03/16/2025 2:00 PM EDT Office Visit [facility] [address] [place] [address] Eb Merino MD [address] [place], [place] [phone] 03/20/2025 1:15 PM EDT Office Visit [facility] [address] [place] [address] Brandon Caballero MD [address] [place] [address] 04/12/2025 11:45 AM EDT Office Visit [facility] [address] [place] [address] Brittany Saldana MD [address] [place] [address] Scheduled Referrals Name Type Priority Associated Diagnoses Orde r Schedule Referral to General Surgery Outpatient Referral Routine Other specified abdominal hernia without obstruction or gangrene Expected: 02/26/2025 (Approximate), Expires: 02/26/2026 documented as of this encounter Goals Goal Patient Goal Type Associated Problems Recent Progress Patient-Stated? Author Blood Pressure < 140/90 Blood Pressure 136/62(2024 11:12 AM EDT) No Venkatesh Skinner, [place] Hemoglobin A1c < 7 Result Component 5.1( 11:19 AM EST) No Venkatesh Skinner PharmD documented as of this encounter Visit Diagnoses Diagnosis Other specified abdominal hernia without obstruction or gangrene- Primary documented in this encounter Additional Health Concerns Assessment Noted Time PHQ-9 Depression Total Score: 2 12/07/19 25 10:39 AM EST documented as of this encounter Care Teams Auctioneer Tobacco Relationship Specialty Start Date End Date Brittany Saldana MD [address] [place] [address] PCP - General Family Medicine 05/08/20 Darrin Hernandez FNP [address] [place] [address] Nurse Practitioner Family Medicine 10/19/23 documented as of this encounter
--- OUTSIDE RECORDS SUMMARY | 2025-02-28 11:52 | XMS_ITS | Encounter Summary ---
Author Organization [employer] Address [address] [place] [address] 7 [place] [address] Care Team Providers Care Section Beamer Name Role Phone Brittany Saldana MD Primary Care Provider + Darrin Hernandez Unavailable Unavailable Reason for Visit * Reason Onset Date Comments Results 02/26/2025 Encounter Details Date Type Department Care Team (Late st Contact Info) Description 02/26/2025 Telephone [facility] 230 [place] [address] Brittany Saldana MD 230 [place] [address] Results Social History Tobacco Use Types Packs/Day Years [...] encounter Miscellaneous Notes * Telephone Encounter - Pippa Aldrich RN - 02/26/2025 1:18 PM EDT TC placed to patient [phone] to notify of below message. Patient verbalized understanding and is aware he will receive a letter in the mail with appointment date and time or a phone call from [facility] with appointment details. Patient verbalized understanding. Patient to f/u PRN. ----- Message from [facility] sent at 02/26/2025 1:03 PM EDT ----- Please let patient know that abdominal ultrasound shows that lesion is probably an abdominal wall hernia, I am going to refer to general surgery for further evaluation. Thank you! documented in this encounter Plan of Treatment Upcoming Encounters Date Type Department Care Team (Late st Contact Info) Description 03/16/2025 2:00 PM EDT Office Visit [facility] [address] [place] [address] Eb Merino MD 230 [place] [address] 03/20/2025 1:15 PM EDT Office Visit [address] [address] Brandon Caballero MD 230 [place], [place] 04/12/2025 11:45 AM EDT Office Visit [address] [address] Brittany Saldana MD 230 [place], [place] documented as of this encounter Goals Goal [...] documented as of this encounter Care Teams Section Beamer Relationship Specialty Start Date End Date Brittany Saldana MD [address] [place] [address] PCP - General Family Medicine 05/08/20 Darrin Hernandez FNP [address] [place] [address] Nurse Practitioner Family Medicine 10/19/23 documented as of this encounter
--- OUTSIDE RECORDS SUMMARY | 2025-02-28 11:52 | XMS_ITS | Encounter Summary ---
Author Organization [employer] Address [address] [place] [address] 7t [place] [address] Care Team Providers Care Investments Manager Name Role Phone Brittany Saldana MD Primary Care Provider + Darrin Hernandez Unavailable Unavailable Reason for Visit * Reason Onset Date Comments Durable Medical Equipment 01/05/2023 Encounter Details Date Type Department Care Team (Late st Contact Info) Description 01/05/2023 Telephone [facility]ICINE 230 [place] [address] Brittany Saldana MD 230 [place] [address] Durable Medical Equipment Social History Tobacco Use [...] If any questions please contact pt at [phone] documented in this encounter Plan of Treatment Upcoming Encounters Date Type Department Care Team (Late st Contact Info) Description 03/16/2025 2:00 PM EDT Office Visit [facility]ICINE [address] [place] [address] Eb Merino MD [address] [place] [address] 03/20/2025 1:15 PM EDT Office Visit [facility]INE [address] [place] [address] Brandon Caballero MD [address] [place] [address] 04/12/2025 11:45 AM EDT Office Visit [facility] [address] [place] [address] Brittany Saldana MD [address] [place] [address] documented as of this encounter Visit Diagnoses Not on filedocumented in this encounter Additional Health Concerns Assessment Noted Time PHQ-9 Depression Total Score: 4 12/31/19 23 10:56 AM EST documented as of this encounter Care Teams Investments Manager Relationship Specialty Start Date End Date Brittany Saldana MD [address] [place] [address] PCP - General Family Medicine 05/08/20 Darrin Hernandez FNP 230 [place] [address] Nurse Practitioner Family Medicine 10/19/23 documented as of this encounter
--- OUTSIDE RECORDS SUMMARY | 2025-02-28 11:52 | XMS_ITS | Encounter Summary ---
Author Organization [email or web address] Address [address] [place] [address] 7t [place] [address] Care Team Providers Care Cook Mess Name Role Phone Brittany Saldana MD Primary Care Provider + Darrin Hernandez Unavailable Unavailable Reason for Visit * Reason Comments [facility] Encounter Details Date Type Department Care Team (Late st Contact Info) Description 02/27/2025 Patient Outreach [facility]ICINE [address] [place] [address] Ted Olvera Recovery Supports Social History Tobacco [...] encounter Progress Notes * Ted Olvera - 02/27/2025 4:33 PM EDT I met with Dane today. Setting: in person at [facility] Recovery Wellness Goals worked on: Social Stability Action taken/next steps: Attended recovery support group and Offered person centered recovery support Additional comments: Today, the participants attended the recovery group, where they shared and listened to various experiences related to recovery. Ted Olvera documented in this encounter Plan of Treatment Upcoming Encounters Date Type Department Care Team (Late st Contact Info) Description 03/16/2025 2:00 PM EDT Office Visit [facility] MEDICINE [address] [place] [address] Eb Merino MD [address] [place] [address] 03/20/2025 1:15 PM EDT Office Visit [address] [address] Brandon Caballero MD [address] [place] [address] 04/12/2025 11:45 AM EDT Office Visit [facility]INE [address] [place] [address] Brittany Saldana MD 230 [place] [address] documented as of this encounter Goals Goal [...] documented as of this encounter Care Teams Cook Mess Relationship Specialty Start Date End Date Brittany Saldana MD 230 [place] [address] PCP - General Family Medicine 05/08/20 Darrin Hernandez FNP [address] [place] [address] Nurse Practitioner Family Medicine 10/19/23 documented as of this encounter
--- OUTSIDE RECORDS SUMMARY | 2025-02-28 11:52 | XMS_ITS | Encounter Summary ---
Author Organization [employer] Address [address] [place] [address] 7 [place] [address] Care Team Providers Care Business Continuity Global Director Name Role Phone Brittany Saldana MD Primary Care Provider + Darrin Hernandez Unavailable Unavailable Reason for Visit * Reason Onset Date Comments Med Refill 08/03/2024 Encounter Details Date Type Department Care Team (Late st Contact Info) Description 08/03/2024 Refill [facility] 230 [place] [address] Brandon Caballero MD 230 [place] [address] Type 2 diabetes mellitus without complication, without long-term current use of insulin ([facility]) Social History Tobacco Use Types [...] the past 12 months, has t he [email or web address], gas, oil or water company threatened to [...] Description 03/16/2025 2:00 PM EDT Office Visit [address] [address] Eb Merino MD [address] [place] [address] 03/20/2025 1:15 PM EDT Office Visit [address] [address] Brandon Caballero MD [address] [place] [address] 04/12/2025 11:45 AM EDT Office Visit [address] [address] Brittany Saldana MD [address] [place] [address] documented as of this encounter Goals Goal [...] complication, without long-term current use of insulin ([facility]) documented in this encounter Additional Health Concerns Assessment Noted Time PHQ-9 Depression Total Score: 4 03/06/20 24 2:22 PM EDT documented as of this encounter Care Teams Business Continuity Global Director Relationship Specialty Start Date End Date Brittany Saldana MD 230 [place] [address] PCP - General Family Medicine 05/08/20 Darrin Hernandez FNP [address] [place] [address] Nurse Practitioner Family Medicine 10/19/23 documented as of this encounter
--- OUTSIDE RECORDS SUMMARY | 2025-02-28 11:52 | XMS_ITS | Encounter Summary ---
Author Organization [employer] Address [address] [place] [address] 7 [place] [address] Care Team Providers Care Tuckpointer Name Role Phone Brittany Saldana MD Primary Care Provider + Darrin Hernandez Unavailable Unavailable Reason for Visit * Reason Onset Date Comments Med Refill 06/19/2024 Encounter Details Date Type Department Care Team (Late st Contact Info) Description 06/19/2024 Refill [facility] MEDICINE 230 [place], [place] [phone] Brittany Saldana MD 230 [place] [address] Alcoholism (CMS/HCC); Essential (primary) hypertension Social History [...] 03/16/2025 2:00 PM EDT Office Visit [facility] [address] [place] [address] Eb Merino MD [address] [place] [address] 03/20/2025 1:15 PM EDT Office Visit [address] [address] Brandon Caballero MD [address] [place] [address] 04/12/2025 11:45 AM EDT Office Visit [address] [address] Brittany Saldana MD [address] [place] [address] documented as of this encounter Goals Goal [...] documented as of this encounter Care Teams Tuckpointer Relationship Specialty Start Date End Date Brittany Saldana MD 230 [place] [address] PCP - General Family Medicine 05/08/20 Darrin Hernandez FNP 230 [place] [address] Nurse Practitioner Family Medicine 10/19/23 documented as of this encounter
--- OUTSIDE RECORDS SUMMARY | 2025-02-28 11:52 | XMS_ITS | Encounter Summary ---
Author Organization [employer] Address [address] [place] [address] 7 [place] [address] Care Team Providers Care Stone Banker Name Role Phone Brittany Saldana MD Primary Care Provider + Darrin Hernandez Unavailable Unavailable Reason for Visit * Reason Onset Date Comments Med Refill 08/03/2024 Encounter Details Date Type Department Care Team (Late st Contact Info) Description 08/03/2024 Refill [facility] 230 [place] [address] [facility] [address] [place] [address] Mild intermittent asthma without complication Social History [...] Description 03/16/2025 2:00 PM EDT Office Visit [facility] [address] [place] [address] Eb Merino MD [address] [place] [address] 03/20/2025 1:15 PM EDT Office Visit [address] [address] Brandon Caballero MD [address] [place] [address] 04/12/2025 11:45 AM EDT Office Visit [address] [address] Brittany Saldana MD [address] [place] [address] documented as of this encounter Goals Goal [...] documented as of this encounter Care Teams Stone Banker Relationship Specialty Start Date End Date Brittany Saldana MD 230 [place] [address] PCP - General Family Medicine 05/08/20 Darrin Hernandez FNP [address] [place] [address] Nurse Practitioner Family Medicine 10/19/23 documented as of this encounter
--- OUTSIDE RECORDS SUMMARY | 2025-02-28 11:52 | XMS_ITS | Encounter Summary ---
Author Organization [employer] Address [address] [place] [address] [address] [address] Care Team Providers Care Hot Metal Mixer Operator Name Role Phone Brittany Saldana MD Primary Care Provider + Darrin Hernandez Unavailable Unavailable Reason for Visit * Reason Comments Med Refill Encounter Details Date Type Department Care Team (Late st Contact Info) Description 03/15/2023 Refill [facility] [address] [place] [address] Brittany Saldana MD [address] [place] [address] Primary hypertension Social History Tobacco Use Types [...] Description 03/16/2025 2:00 PM EDT Office Visit [facility] [address] [place] [phone] Eb Merino MD [address] [place] [address] 03/20/2025 1:15 PM EDT Office Visit [facility] [address] [place] [address] Brandon Caballero MD [address] [place] [address] 04/12/2025 11:45 AM EDT Office Visit [facility] [address] [place] [address] [phone] Brittany Saldana MD [address] [place] [address] documented as of this encounter Visit Diagnoses Diagnosis Primary hypertension Unspecified essential hypertension documented in this encounter Additional Health Concerns Assessment Noted Time PHQ-9 Depression Total Score: 10 023 10:47 AM EDT documented as of this encounter Care Teams Hot Metal Mixer Operator Relationship Specialty Start Date End Date Brittany Saldana MD [address] [place] [address] PCP - General Family Medicine 05/08/20 Darrin Hernandez FNP [address] [place] [address] Nurse Practitioner Family Medicine 10/19/23 documented as of this encounter
--- OUTSIDE RECORDS SUMMARY | 2025-02-28 11:52 | XMS_ITS | Encounter Summary ---
Author Organization [employer] Address [address] [place] [address] 7 [place] [address] Care Team Providers Care Professor Sculpture Name Role Phone Brittany Saldana MD Primary Care Provider + Darrin Hernandez Unavailable Unavailable Reason for Visit * Reason Onset Date Comments Referral 09/24/2023 Encounter Details Date Type Department Care Team (Late st Contact Info) Description 09/24/2023 Telephone [facility] [address] [place] [address] Brittany Saldana MD [address] [place] [address] Referral Social History Tobacco Use Types Packs/Day [...] 9:02 AM EST Tc from sri with [facility] requesting a new order for Occupational therapy for weakness in hands. States they received the referral for Occupational therapy but dx says hip pain. Please fax to [phone] Any questions, please contact sri at [phone] documented in this encounter Plan of Treatment Upcoming Encounters Date Type Department Care Team (Late st Contact Info) Description 03/16/2025 2:00 PM EDT Office Visit [facility] [address] [place] [address] Eb Merino MD [address] [place] [phone] 03/20/2025 1:15 PM EDT Office Visit [facility] [address] [place] [address] Brandon Caballero MD [address] [place] [address] 04/12/2025 11:45 AM EDT Office Visit [facility] [address] [place] [address] Brittany Saldana MD [address] [place] [address] documented as of this encounter Visit Diagnoses Not on filedocumented in this encounter Additional Health Concerns Assessment Noted Time PHQ-9 Depression Total Score: 4 09/06/20 23 11:30 AM EDT documented as of this encounter Care Teams Professor Sculpture Relationship Specialty Start Date End Date Brittany Saldana MD [address] [place] [address] PCP - General Family Medicine 05/08/20 Darrin Hernandez FNP [address] [place] [address] Nurse Practitioner Family Medicine 10/19/23 documented as of this encounter
--- OUTSIDE RECORDS SUMMARY | 2025-02-28 11:52 | XMS_ITS | Encounter Summary ---
Author Organization [employer] Address [address] [place] [address] 7 [place] [address] Care Team Providers Care Roto Gravure Press Operator Name Role Phone Brittany Saldana MD Primary Care Provider + Darrin Hernandez Unavailable Unavailable Reason for Visit * Reason Onset Date Comments Med Refill 02/08/2024 Encounter Details Date Type Department Care Team (Late st Contact Info) Description 02/08/2024 Refill [facility] [address] [place] [address] Brittany Saldana MD [address] [place] [address] Social History Tobacco Use Types Packs/Day Years [...] the past 12 months, has t he [employer], gas, oil or water company threatened to [...] PM EDT Office Visit [facility] [address] [place] [address] Eb Merino MD [address] [place] [address] 03/20/2025 1:15 PM EDT Office Visit [address] [address] Brandon Caballero MD [address] [place] [address] 04/12/2025 11:45 AM EDT Office Visit [facility] [address] [place] [phone] Brittany Saldana MD [address] [place] [address] documented as of this encounter Visit Diagnoses Not on filedocumented in this encounter Additional Health Concerns Assessment Noted Time PHQ-9 Depression Total Score: 1 12/27/19 1:53 PM EST documented as of this encounter Care Teams Roto Gravure Press Operator Relationship Specialty Start Date End Date Brittany Saldana MD [address] [place] [address] PCP - General Family Medicine 05/08/20 Darrin Hernandez FNP [address] [place] [address] Nurse Practitioner Family Medicine 10/19/23 documented as of this encounter
--- OUTSIDE RECORDS SUMMARY | 2025-02-28 11:52 | XMS_ITS | Encounter Summary ---
Author Organization [employer] Address [address] [place] [address] 7 [place] [address] Care Team Providers Care Registration Manager Name Role Phone Brittany Saldana MD Primary Care Provider + Darrin Hernandez Unavailable Unavailable Reason for Visit * Reason Onset Date Comments Med Refill 07/23/2024 Encounter Details Date Type Department Care Team (Late st Contact Info) Description 07/23/2024 Refill [facility] [address] [place] [address] [facility] [address] [place] [address] Depression, unspecified depression type Social History Tobacco [...] Description 03/16/2025 2:00 PM EDT Office Visit [facility] [address] [place] [address] Eb Merino MD [address] [place] [address] 03/20/2025 1:15 PM EDT Office Visit [address] [address] Brandon Caballero MD [address] [place] [address] 04/12/2025 11:45 AM EDT Office Visit [address] [address] Brittany Saldana MD [address] [place] [address] documented as of this encounter Goals Goal [...] documented as of this encounter Care Teams Registration Manager Relationship Specialty Start Date End Date Brittany Saldana MD [address] [place] [address] PCP - General Family Medicine 05/08/20 Darrin Hernandez FNP [address] [place] [address] Nurse Practitioner Family Medicine 10/19/23 documented as of this encounter
--- OUTSIDE RECORDS SUMMARY | 2025-02-28 11:52 | XMS_ITS | Clinical Summary ---
Author Organization [facility] Address [address] [place] [address] Care Team Providers Care Chemical Dependency Attendant Name Role Phone Selvin Payan MD Primary Care Provider [phone] Allergies Active Allergy Reactions Criticality Noted Date [...] age to complete this topic Care Teams Chemical Dependency Attendant Relationship Specialty Start Date End Date Selvin Payan MD [address] [place] [address] PCP - General Internal Medicine 03/08/18
== END 2025-02-28 10:14 | disposition home or self-care (01) ==
LOC: HO.MRI 10:13
PROVIDERS: PCP Internal Medicine; Visit Provider Nurse Practitioner
DX: H91.21 Sudden idiopathic hearing loss, right ear (principal)
CPT/HCPCS: 70553; A9585

== ENCOUNTER → 2025-02-28 10:21 | Outpatient (BNV) | payer OTHER, SELFPAY | PROVIDERS: PCP Internal Medicine; Visit Provider Radiology Diagnostic Radiology | DX: H91.20 Sudden idiopathic hearing loss, unspecified ear (principal) | CPT/HCPCS: 70553 ==

== ENCOUNTER 2025-03-13 12:46 | Outpatient (AMB) | payer OTHER, SELFPAY ==
[2025-03-13 12:50] VITALS: BP 154/62; PULSE 62; BMI 26.6
--- NOTE | 2025-03-13 12:50 | A.OFFVIS_ITS ---
Vital Signs 03/13/25 12:50 Height 5 ft 3 in Weight 150 lb 5.684 oz BMI 26.6 BP 154/62 H Blood Pressure Location Lt brachial Position Sitting Pulse 62 Pulse Source Pulse Oximeter Intake Visit Reasons: 2m follow up/event monitor/echo Shaping Machine Operator Required: No Allergies Penicillins Allergy (Verified 03/13/25 12:52) Unknown Medication List - Last Reconciled 03/13/25 by Zane Mendez NP albuterol sulfate 90 mcg/actuation 2 puffs inhalation Q6H PRN atorvastatin 20 mg PO BEDTIME bupropion HCl XL 300 mg PO DAILY calcium carbonate-vitamin D3 600 mg-10 mcg (400 unit) (Calcium with Vitamin D) 1 tab PO BID clonidine HCl 0.1 mg PO BEDTIME cyanocobalamin (vitamin B-12) 1,000 mcg PO DAILY docusate sodium 100 mg PO BID PRN felodipine ER 10 mg PO DAILY finasteride 5 mg PO BEDTIME 90 days fluticasone propionate 50 mcg/actuation 1 spray intranasal DAILY gabapentin 300 mg PO TID lancets (ScrewpulpTouch Delica Plus Lancet) As directed lisinopril 10 mg PO DAILY meclizine 25 mg PO TID PRN melatonin 5 mg PO BEDTIME methylphenidate HCl ER 36 mg PO QAM multivitamin 1 tab PO DAILY tadalafil 20 mg PO ONCE PRN 30 days terazosin 5 mg PO BEDTIME thiamine HCl (vitamin B1) 100 mg PO DAILY trazodone 200 mg PO BEDTIME HPI Comments Details: This is a 70-year-old male patient presenting for a follow-up visit. Patient with a history of diabetes, hyperlipidemia, hypertension, weight loss periodic surgery, and PACs. His Holter monitor from a year ago showed a PAC burden of 3.8%. He was seen in the office 2 months ago for concerns of AFib and palpitations. Since then, he has undergone an echocardiogram and a cardiac event monitor. Today, he reports ongoing intermittent palpitations but denies any exertional chest pain, shortness of breath, dizziness, orthopnea, PND, fatigue, presyncope, or syncope. He does note several year history of intermittent lower leg swelling. He had previously trialed diuretics which led to hypokalemia requiring potassium supplement. It is unclear why these were dis continued. The patient also reports that his watch occasionally alerts him with the AFib though a rhythm strip he he presented did not demonstrate it. Patient has a past strong history of alcohol use however has been sober for nearly 4 years and was commended for this. Patient states he has compliant with all his prescribed medications. [facility] Medical History Diabetes Atrial fibrillation Osteoarthritis DJD (degenerative joint disease) Von Recklinghausen disease GERD (gastroesophageal reflux disease) Anxiety Hyperlipidemia Insomnia Sleep apnea with use of continuous positive airway pressure (CPAP) Obesity Depression ADD (attention deficit disorder) Colon polyp Microscopic hematuria HTN (hypertension) AA (alcohol abuse) BPH (benign prostatic hyperplasia) Surgical History History of esophagogastroduodenoscopy (EGD) S/P laparoscopic sleeve gastrectomy Hx of tonsillectomy H/O bilateral inguinal hernia repair H/O umbilical hernia repair H/O colonoscopy Family History Mother Throat cancer Paternal Aunt Colon cancer Maternal Grandfather No problems noted. Social History Household Members: Family Housing: House Are you a primary resident care assistant to a significant other at home: No Do you presently have visiting nurse or other home services: No Alcohol intake: former Patient Tobacco Use Status: Former Tobacco user service: No Review of Systems ENT Reports dizziness Card Denies chest pain, Denies chest pain at rest, Denies chest pain with activity, Denies rapid heart rate, Denies pedal edema, Denies edema, Denies leg edema, Denies lightheadedness, Denies palpitations, Denies dyspnea, Denies dyspnea on exertion and Denies orthopnea Resp Denies cough, Denies dyspnea and Denies dyspnea on exertion GI Denies hematochezia and Denies change in stool character Musc Denies abnormal gait, Reports limited range of motion, Reports muscle cramps, Denies muscle weakness, Denies numbness, Denies radiating pain into limb, Denies stiffness and Denies tingling Neuro Denies abnormal gait, Reports dizziness, Denies numbness and Denies tingling Endo Denies palpitations Physical Exam Vital Signs: Last Vital Signs Pulse 62 03/13/25 12:50 BP 154/62 H 03/13/25 12:50 BMI result Body Mass Index 26.6 Const General: cooperative, healthy appearing, comfortable and no acute distress Orientation/consciousness: patient oriented x3 HEENT Head: Yes normal to inspection Neck Neck: Yes normal visual inspection, Yes trachea midline and Yes supple Chest Chest palpation & inspection: normal inspection of the chest Resp Effort & Inspection: normal respiratory effort Auscultation: clear to auscultation bilaterally, no crackles, no rales, no rhonchi and no wheezes Cardio Jugular venous distension: no JVD Palpation: normal PMI Rate: regular rate Rhythm: regular rhythm Heart sounds: S1 normal heart sound present, S2 normal heart sound present, no click, no gallops, Murmur heart sound present systolic at the right sternal border and no rubs Peripheral pulses: Peripheral pulses 2+ throughout GI Inspection: Yes normal to inspection Palpation (GI): Soft to palpation Auscultation: normal bowel sounds Skin General skin exam: no rashes or lesions noted Neuro General: patient oriented x3 Extrem General: Yes normal to inspection, No no pedal edema and No calf tenderness Psych Appearance: grossly normal Mental Status: mental status grossly normal Speech and movement: Normal speech and movement present Assessment & Plan Assessment & Plan (1) Cardiac arrhythmia: Code(s): I49.9 - Cardiac arrhythmia, unspecified Category: Medical Plan: 01/31/2025-patient underwent a 30 day cardiac event monitor which showed underl karly sinus rhythm with an average heart rate of 64 beats per minute, frequent supraventricular ectopy with a burden of 5.1%, rare ventricular ectopy. Patient's symptoms associated with the ectopies. Patient reports that his watch device occasionally alert him of possible AFib with elevated heart rate. Today, he showed a rhythm strip with a heart rate in the 70s which was inconclusive but did not demonstrate AFib instead showed some PACs. Advised him to continue monitoring and to save rhythm strips when the device indicates possible AFib particularly with higher heart rates. Given his ongoing palpitations associated with the ectopy, we will initiate patient with low-dose metoprolol for symptom control. His echocardiogram did show biatrial enlargement which places him at an increased risk for AFib. Maximo Vasc score of 2, however since there was no documented AFib at this time, no indications for anticoagulation. (2) (HFpEF) heart failure with preserved ejection fraction: Code(s): I50.30 - Unspecified diastolic (congestive) heart failure Category: Medical Plan: 01/31/2025-echo study showed normal EF between 65-70% with a grade 2 diastolic dysfunction, severely dilated left atrium and moderately dilated right atrium, moderate aortic regurgitation, mild mitral regurgitation, mildly elevated right atrial pressures, small pericardial effusion near the left ventricle. We will repeat echo in 3 months' time. Clinically euvolemic. However due to his reports of intermittent leg swelling, we will start patient on low-dose spironolactone while helping maintain his potassium levels as he has history of hypokalemia with Lasix. We will monitor his labs closely. Signs and symptoms of heart failure reviewed in detail with the patient. Advised low-salt diet, daily weight monitoring, and fluid restriction between 1.5-2 L daily. (3) HTN (hypertension): Code(s): I10 - Essential (primary) hypertension Category: Medical Plan: Blood pressure today is elevated, and he reports that his home readings are also consistently high in the systolic 150s. His PCP increased his lisinopril to 10 mg approximately a month ago however, there has been no significant improvement. Hopefully the spironolactone and the metoprolol will help with improving his blood pressure. Advised monitoring blood pressures at home and keeping a log of it to bring to the next visit. Ideally, goal of less than 130/80. (4) Hyperlipidemia: Code(s): E78.5 - Hyperlipidemia, unspecified Category: Medical Plan: LDL back in March 08 within goal at 55. Continue statin therapy. Ideally, LDL goal less than 70. (5) Diabetes: Code(s): E11.9 - Type 2 diabetes mellitus without complications Category: Medical Plan: Continue diabetes management. Currently controlled with diet. Ideally, A1c goal less than 7%. Advised heart healthy diet, regular exercise, med compliance, and management of vascular risk factors. We will follow up with the patient in 1 month time. In the interim, patient will call the office with any concerns or change in symptoms. This note was generated using voice recognition software. While every effort has been made to ensure accuracy and proper tufting supervisor, there may be occasional errors that could affect the content or meaning of the described symptoms. Orders: Orders Basic Metabolic Panel Today I10 - Essential (primary) hypertension Liver Panel Today I10 - Essential (primary) hypertension Medications: New metoprolol succinate ER 25 mg PO DAILY 90 tabs 3RF spironolactone 12.5 mg (1/2 x 25 mg) PO DAILY 90 tabs 0RF metoprolol succinate ER 25 mg PO DAILY 30 tabs 0RF Coding Level of Care Code Est Pt Level 4 (82202) Complex EM visit Add On G2211 Diagnoses Cardiac arrhythmia I49.9 (HFpEF) heart failure with preserved ejection fraction I50.30 HTN (hypertension) I10 Hyperlipidemia E78.5 Diabetes E11.9 Time Spent (min) 34 Comment Time spent in reviewing the chart, test results, assessment, counseling and documentation.
--- OUTSIDE RECORDS SUMMARY | 2025-03-13 14:37 | XMS_ITS | Encounter Summary ---
Author Organization [employer] Address [address] [place] [address] 7 [place] [address] Care Team Providers Care Technical Associate Name Role Phone Brittany Saldana MD Primary Care Provider + Darrin Hernandez Unavailable Unavailable Reason for Visit * Reason Onset Date Comments Med Refill 08/11/2024 Encounter Details Date Type Department Care Team (Late st Contact Info) Description 08/11/2024 Refill [facility] [address] [place] [address] Brittany Saldana MD [address] [place] [address] Mild intermittent asthma without complication Social History [...] Care Team (Late st Contact Info) Description 03/20/2025 1:15 PM EDT Office Visit [address] [address] Brandon Caballero MD [address] [place] [address] 03/23/2025 12:00 PM EDT Office Visit [address] [address] Brittany Saldana MD [address] [place] [address] 04/12/2025 11:45 AM EDT Office Visit [address] [address] Brittany Saldana MD [address] [place] [address] documented as of this encounter Goals Goal [...] documented as of this encounter Care Teams Technical Associate Relationship Specialty Start Date End Date Brittany Saldana MD [address] [place] [address] PCP - General Family Medicine 05/08/20 Darrin Hernandez FNP [address] [place] [address] Nurse Practitioner Family Medicine 10/19/23 documented as of this encounter
--- OUTSIDE RECORDS SUMMARY | 2025-03-13 14:37 | XMS_ITS | Encounter Summary ---
Author Organization [employer] Address [address] [place] [address] 7 [place] [address] Care Team Providers Care Cloth Cutting Inspector Name Role Phone Brittany Saldana MD Primary Care Provider + Darrin Hernandez Unavailable Unavailable Reason for Visit * Reason Onset Date Comments Med Refill 07/23/2024 Encounter Details Date Type Department Care Team (Late st Contact Info) Description 07/23/2024 Refill [facility] [address] [place] [address] [facility] [address] [place] [address] Depression, unspecified depression type Social History Tobacco [...] Description 03/20/2025 1:15 PM EDT Office Visit [address] [address] Brandon Caballero MD [address] [place] [address] 03/23/2025 12:00 PM EDT Office Visit [address] [address] Brittany Saldana MD [address] [place] [address] 04/12/2025 11:45 AM EDT Office Visit [address] [address] Brittany Saldana MD [address] [place] [address] documented as of this encounter Goals Goal [...] as of this encounter Care Teams Cloth Cutting Inspector Relationship Specialty Start Date End Date Brittany Saldana MD [address] [place] [address] PCP - General Family Medicine 05/08/20 Darrin Hernandez FNP [address] [place] [address] Nurse Practitioner Family Medicine 10/19/23 documented as of this encounter
--- OUTSIDE RECORDS SUMMARY | 2025-03-13 14:37 | XMS_ITS | Encounter Summary ---
Author Organization [employer] Address [address] [place] [address] 7 [place] [address] Care Team Providers Care Supervisor Backfilling Name Role Phone Brittany Saldana MD Primary Care Provider + Darrin Hernandez Unavailable Unavailable Reason for Visit * Reason Onset Date Comments Med Refill 06/11/2024 Encounter Details Date Type Department Care Team (Late st Contact Info) Description 06/11/2024 Refill [facility] [address] [place], [place] [phone] Brittany Saldana MD [address] [place] [address] Social History Tobacco Use Types Packs/Day Years [...] Description 03/20/2025 1:15 PM EDT Office Visit [address] [address] Brandon Caballero MD [address] [place] [address] 03/23/2025 12:00 PM EDT Office Visit [address] [address] Brittany Saldana MD [address] [place] [address] 04/12/2025 11:45 AM EDT Office Visit [address] [address] Brittany Saldana MD [address] [place] [address] documented as of this encounter Goals Goal [...] as of this encounter Care Teams Supervisor Backfilling Relationship Specialty Start Date End Date Brittany Saldana MD [address] [place] [address] PCP - General Family Medicine 05/08/20 Darrin Hernandez FNP [address] [place] [address] Nurse Practitioner Family Medicine 10/19/23 documented as of this encounter
--- OUTSIDE RECORDS SUMMARY | 2025-03-13 14:37 | XMS_ITS | Encounter Summary ---
Author Organization [employer] Address [address] [place] [address] 7 [place] [address] Care Team Providers Care Web Content Specialist Name Role Phone Brittany Saldana MD Primary Care Provider + Darrin Hernandez Unavailable Unavailable Reason for Visit * Reason Onset Date Comments Referral 09/02/2023 Encounter Details Date Type Department Care Team (Late st Contact Info) Description 09/02/2023 Telephone [facility] [address] [place] [address] Brittany Saldana MD [address] [place] [address] Referral Social History Tobacco Use Types Packs/Day [...] from pt requesting a new referral for Log Yard Derrick Operator Specialist, pt stated needs a hearing test. documented in this encounter Plan of Treatment Upcoming Encounters Date Type Department Care Team (Late st Contact Info) Description 03/20/2025 1:15 PM EDT Office Visit [facility] [address] [place] [address] Brandon Caballero MD [address] [place] [address] 03/23/2025 12:00 PM EDT Office Visit [facility] [address] [place] [address] Brittany Saldana MD [address] [place] [address] 04/12/2025 11:45 AM EDT Office Visit [facility] [address] [place] [address] Brittany Saldana MD [address] [place] [address] documented as of this encounter Visit Diagnoses Diagnosis 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, type 1 (von Recklinghausen's disease) ([facility]) Neurofibromatosis, Type 1 (von Recklinghausen's disease) documented in this encounter Additional Health Concerns Assessment Noted Time PHQ-9 Depression Total Score: 7 07/06/20 23 2:07 PM EDT documented as of this encounter Care Teams Web Content Specialist Relationship Specialty Start Date End Date Brittany Saldana MD [address] [place] [address] PCP - General Family Medicine 05/08/20 Darrin Hernandez FNP [address] [place] [address] Nurse Practitioner Family Medicine 10/19/23 documented as of this encounter
--- OUTSIDE RECORDS SUMMARY | 2025-03-13 14:37 | XMS_ITS | Encounter Summary ---
Author Organization [employer] Address [address] [place] [address] 7 [place] [address] Care Team Providers Care Tank Systems Maintainer Name Role Phone Brittany Saldana MD Primary Care Provider + Darrin Hernandez Unavailable Unavailable Reason for Visit * Reason Comments Med Refill Encounter Details Date Type Department Care Team (Late st Contact Info) Description 04/21/2024 Refill [facility] [address] [place] [address] Brittany Saldana MD 230 [place] [address] Mild intermittent asthma without complication Social History [...] Description 03/20/2025 1:15 PM EDT Office Visit [address] [address] Brandon Caballero MD [address] [place] [address] 03/23/2025 12:00 PM EDT Office Visit [address] [address] Brittany Saldana MD [address] [place] [address] 04/12/2025 11:45 AM EDT Office Visit [address] [address] Brittany Saldana MD [address] [place] [address] documented as of this encounter Goals Goal Patient Goal Type Associated Problems Recent Progress Patient-Stated? Author Blood Pressure < 140/90 Blood Pressure 136/62(2024 11:12 AM EDT) No Venkatesh SkinnerMagnolia Hemoglobin A1c < 7 Result Component 5.1( 5 11:19 AM EST) No Venkatesh Skinner PharmD documented as of this encounter Visit Diagnoses Diagnosis Mild intermittent asthma without complication documented in this encounter Additional Health Concerns Assessment Noted Time PHQ-9 Depression Total Score: 4 03/06/20 24 2:22 PM EDT documented as of this encounter Care Teams Tank Systems Maintainer Relationship Specialty Start Date End Date Brittany Saldana MD [address] [place] [address] PCP - General Family Medicine 05/08/20 Darrin Hernandez FNP [address] [place] [address] Nurse Practitioner Family Medicine 10/19/23 documented as of this encounter
--- OUTSIDE RECORDS SUMMARY | 2025-03-13 14:37 | XMS_ITS | Clinical Summary ---
Author Organization [facility] Address [address] [place] [address] Care Team Providers Care Credit Intern Name Role Phone Selvin Payan MD Primary Care Provider [phone] Allergies Active Allergy Reactions Criticality Noted Date [...] age to complete this topic Care Teams Credit Intern Relationship Specialty Start Date End Date Selvin Payan MD [address] [place] [address] PCP - General Internal Medicine 03/08/18
--- OUTSIDE RECORDS SUMMARY | 2025-03-13 14:37 | XMS_ITS | Encounter Summary ---
Author Organization [employer] Address [address] [place] [address] 7 [place] [address] Care Team Providers Care Packing Room Worker Name Role Phone Brittany Saldana MD Primary Care Provider + Darrin Hernandez Unavailable Unavailable Reason for Visit * Reason Onset Date Comments Med Refill 04/16/2024 Encounter Details Date Type Department Care Team (Late st Contact Info) Description 04/16/2024 Refill [facility] [address] [place] [address] Darrin Hernandez FNP PTSD (post-traumatic stress disorder) [...] Description 03/20/2025 1:15 PM EDT Office Visit [address] [address] Brandon Caballero MD [address] [place] [address] 03/23/2025 12:00 PM EDT Office Visit [address] [address] Brittany Saldana MD [address] [place] [address] 04/12/2025 11:45 AM EDT Office Visit [address] [address] Brittany Saldana MD [address] [place] [address] [phone] documented as of this encounter Goals Goal Patient Goal Type Associated Problems Recent Progress Patient-Stated? Author Blood Pressure < 140/90 Blood Pressure 136/62(2024 11:12 AM EDT) No Venkatesh Siknner, PharmD Hemoglobin A1c < 7 Result Component 5.1( 11:19 AM EST) Venkatesh Mccann, Magnolia documented as of this encounter Visit Diagnoses Diagnosis PTSD (post-traumatic stress disorder) Posttraumatic stress disorder documented in this encounter Additional Health Concerns Assessment Noted Time PHQ-9 Depression Total Score: 4 03/06/20 24 2:22 PM EDT documented as of this encounter Care Teams Packing Room Worker Relationship Specialty Start Date End Date Brittany Saldana MD [address] [place] [address] PCP - General Family Medicine 05/08/20 Darrin Hernandez FNP [address] [place] [address] Nurse Practitioner Family Medicine 10/19/23 documented as of this encounter
--- OUTSIDE RECORDS SUMMARY | 2025-03-13 14:37 | XMS_ITS | Encounter Summary ---
Author Organization [employer] Address [address] [place] [address] 7 [place] [address] Care Team Providers Care Marketing Information Manager Name Role Phone Brittany Saldana MD Primary Care Provider + Darrin Hernandez Unavailable Unavailable Reason for Visit * Reason Onset Date Comments Med Refill 06/19/2024 Encounter Details Date Type Department Care Team (Late st Contact Info) Description 06/19/2024 Refill [facility] [address] [place], [place] [phone] Brittany Saldana MD [address] [place] [address] Alcoholism (CMS/HCC); Essential (primary) hypertension Social History [...] Description 03/20/2025 1:15 PM EDT Office Visit [address] [address] Brandon Caballero MD [address] [place] [address] 03/23/2025 12:00 PM EDT Office Visit [address] [address] Brittany Saldana MD [address] [place] [address] 04/12/2025 11:45 AM EDT Office Visit [address] [address] Brittany Saldana MD [address] [place] [address] documented as of this encounter Goals Goal [...] as of this encounter Care Teams Marketing Information Manager Relationship Specialty Start Date End Date Brittany Saldana MD [address] [place] [address] PCP - General Family Medicine 05/08/20 Darrin Hernandez FNP [address] [place] [address] Nurse Practitioner Family Medicine 10/19/23 documented as of this encounter
--- OUTSIDE RECORDS SUMMARY | 2025-03-13 14:37 | XMS_ITS | Encounter Summary ---
Author Organization [employer] Address [address] [place] [address] 7 [place] [address] Care Team Providers Care Electrical Tech Name Role Phone Brittany Saldana MD Primary Care Provider + Darrin Hernandez Unavailable Unavailable Reason for Visit * Reason Onset Date Comments Med Refill 05/20/2024 Encounter Details Date Type Department Care Team (Late st Contact Info) Description 05/20/2024 Refill [facility] [address] [place] [address] Darrin Hernandez FNP Social History Tobacco Use [...] Description 03/20/2025 1:15 PM EDT Office Visit [address] [address] Brandon Caballero MD [address] [place] [address] 03/23/2025 12:00 PM EDT Office Visit [address] [address] Brittany Saldana MD [address] [place] [address] 04/12/2025 11:45 AM EDT Office Visit [address] [address] Brittany Saldana MD [address] [place] [address] documented as of this encounter Goals Goal Patient Goal Type Associated Problems Recent Progress Patient-Stated? Author Blood Pressure < 140/90 Blood Pressure 136/62(2024 11:12 AM EDT) No Venkatesh Skinner, Magnolia Hemoglobin A1c < 7 Result Component 5.1( 11:19 AM EST) No SkinnerVenkatesh PharmD documented as of this encounter Visit Diagnoses Not on filedocumented in this encounter Additional Health Concerns Assessment Noted Time PHQ-9 Depression Total Score: 4 03/06/20 24 2:22 PM EDT documented as of this encounter Care Teams Electrical Tech Relationship Specialty Start Date End Date Brittany Saldana MD [address] [place] [address] PCP - General Family Medicine 05/08/20 Darrin Hernandez FNP [address] [place] [address] Nurse Practitioner Family Medicine 10/19/23 documented as of this encounter
--- OUTSIDE RECORDS SUMMARY | 2025-03-13 14:37 | XMS_ITS | Encounter Summary ---
Author Organization [employer] Address [address] [place] [address] 7 [place] [address] Care Team Providers Care Editor Farm Journal Name Role Phone Brittany Saldana MD Primary Care Provider + Darrin Hernandez Unavailable Unavailable Reason for Visit * Reason Onset Date Comments r/s appt 12/24/2022 Encounter Details Date Type Department Care Team (Late st Contact Info) Description 12/24/2022 Telephone [facility] [address] [place] [address] Brittany Saldana MD [address] [place] [address] r/s appt Social History Tobacco Use Types [...] states his ride was not there ontime. Cloth Napping Supervisor tried booking but December [employer]ender was full. Please contact pt at [phone] documented in this encounter Plan of Treatment Upcoming Encounters Date Type Department Care Team (Late st Contact Info) Description 03/20/2025 1:15 PM EDT Office Visit [facility] [address] [place] [address] Brandon Caballero MD [address] [place] [address] 03/23/2025 12:00 PM EDT Office Visit [address] [address] Brittany Saldana MD [address] [place] [address] 04/12/2025 11:45 AM EDT Office Visit [address] [address] Brittany Saldana MD [address] [place] [address] documented as of this encounter Visit Diagnoses Not on filedocumented in this encounter Additional Health Concerns Assessment Noted Time PHQ-9 Depression Total Score: 9 11/05/20 22 9:37 AM EST documented as of this encounter Care Teams Editor Farm Journal Relationship Specialty Start Date End Date Brittany Saldana MD [address] [place] [address] PCP - General Family Medicine 05/08/20 Darrin Hernandez FNP [address] [place] [address] [place] [address] Nurse Practitioner Family Medicine 10/19/23 documented as of this encounter
--- OUTSIDE RECORDS SUMMARY | 2025-03-13 14:37 | XMS_ITS | Encounter Summary ---
Author Organization [employer] Address [address] [place] [address] 7 [place] [address] Care Team Providers Care Marriage And Family Social Worker Name Role Phone Brittany Saldana MD Primary Care Provider + Darrin Hernandez Unavailable Unavailable Reason for Visit * Reason Comments Med Refill Encounter Details Date Type Department Care Team (Late st Contact Info) Description 07/25/2024 Refill [facility] [address] [place] [address] Brandon Caballero MD [address] [place] [address] Type 2 diabetes mellitus without complication, without long-term current use of insulin ([facility] [facility]) Social History Tobacco Use Types Packs/Day Years [...] Description 03/20/2025 1:15 PM EDT Office Visit [address] [address] Brandon Caballero MD [address] [place] [address] 03/23/2025 12:00 PM EDT Office Visit [address] [address] Brittany Saldana MD [address] [place] [address] 04/12/2025 11:45 AM EDT Office Visit [address] [address] Brittany Saldana MD [address] [place] [address] documented as of this encounter Goals Goal Patient Goal Type Associated Problems Recent Progress Patient-Stated? Author Blood Pressure < 140/90 Blood Pressure 136/62(04/09/ 2025 11:12 AM EDT) No Venkatesh Skinner PharmD Hemoglobin A1c < 7 Result Component 5.1( 5 11:19 AM EST) No Venkatesh Skinner PharmD documented as of this encounter Visit Diagnoses Diagnosis Type 2 diabetes mellitus without complication, without long-term current use of insulin ([facility] [facility]) documented in this encounter Additional Health Concerns Assessment Noted Time PHQ-9 Depression Total Score: 4 03/06/20 24 2:22 PM EDT documented as of this encounter Care Teams Marriage And Family Social Worker Relationship Specialty Start Date End Date Brittany Saldana MD [address] [place] [address] PCP - General Family Medicine 05/08/20 Darrin Hernandez FNP [address] [place] [address] Nurse Practitioner Family Medicine 10/19/23 documented as of this encounter
--- OUTSIDE RECORDS SUMMARY | 2025-03-13 14:37 | XMS_ITS | Encounter Summary ---
Author Organization [employer] Address [address] [place] [address] 7 [place] [address] Care Team Providers Care Communications Lead Name Role Phone Brittany Saldana MD Primary Care Provider + Darrin Hernandez Unavailable Unavailable Reason for Visit * Reason Comments Med Refill Encounter Details Date Type Department Care Team (Late st Contact Info) Description 06/03/2023 Refill [facility] [address] [place] [address] Darrin Hernandez FNP Depression, unspecified depression type [...] Description 03/20/2025 1:15 PM EDT Office Visit [facility] [address] [place] [address] Brandon Caballero MD 230 [facility] [place] [address] 03/23/2025 12:00 PM EDT Office Visit [facility] [address] [place], [place] [address] [place] [address] Brittany Saldana MD [address] [place], [place] 04/12/2025 11:45 AM EDT Office Visit [facility] [address] [place] [address] Britt[place] [address] documented as of this encounter Visit Diagnoses Diagnosis Depression, unspecified depression type documented in this encounter Additional Health Concerns Assessment Noted Time PHQ-9 Depression Total Score: 11 023 10:47 AM EDT documented as of this encounter Care Teams Communications Lead Relationship Specialty Start Date End Date Britt[place] [address] PCP - General Family Medicine 05/08/20 Darrin Hernandez FNP [address] [place] [address] Nurse Practitioner Family Medicine 10/19/23 documented as of this encounter
--- OUTSIDE RECORDS SUMMARY | 2025-03-13 14:37 | XMS_ITS | Encounter Summary ---
Author Organization [employer] Address [address] [place] [address] 7t [place] [address] Care Team Providers Care Category Director Name Role Phone Brittany Saldana MD Primary Care Provider + Darrin Hernandez Unavailable Unavailable Encounter Details Date Type Department Care Team (Latest Contact Info) Description 03/09/2025 Travel Social History Tobacco Use Types Packs/Day [...] Description 03/20/2025 1:15 PM EDT Office Visit [address] [address] Brandon Caballero MD [address] [place] [address] 03/23/2025 12:00 PM EDT Office Visit [address] [address] Brittany Saldana MD [address] [place] [address] 04/12/2025 11:45 AM EDT Office Visit [address] [address] Brittany Saldana MD [address] [place] [address] documented as of this encounter Goals Goal Patient Goal Type Associated Problems Recent Progress Patient-Stated? Author Blood Pressure < 140/90 Blood Pressure 136/62(2024 11:12 AM EDT) No Venkatesh Skinner, Magnolia Decrease the frequency of unwanted emotions so that daily functioning is improved General No Janae Walden, RN Hemoglobin A1c < 7 Result Component 5.1( 11:19 AM EST) No Skinner, Venkatesh, PharmD documented as of this encounter Visit Diagnoses Not on filedocumented in this encounter Additional Health Concerns Assessment Noted Time PHQ-9 Depression Total Score: 2 12/07/19 25 10:39 AM EST documented as of this encounter Care Teams Category Director Relationship Specialty Start Date End Date Brittany Saldana MD [address] [place] [address] PCP - General Family Medicine 05/08/20 Darrin Hernandez FNP [address] [place] [address] Nurse Practitioner Family Medicine 10/19/23 documented as of this encounter
--- OUTSIDE RECORDS SUMMARY | 2025-03-13 14:37 | XMS_ITS | Encounter Summary ---
Author Organization [employer] Address [address] [place] [address] 7 [place] [address] Care Team Providers Care Insurance Follow Up Specialist Name Role Phone Brittany Saldana MD Primary Care Provider + Darrin Hernandez Unavailable Unavailable Reason for Visit * Reason Onset Date Comments Med Refill 06/15/2024 Encounter Details Date Type Department Care Team (Late st Contact Info) Description 06/15/2024 Refill [facility] 230 [place], [place] [phone] Brittany Saldana MD 230 [place] [address] Acute insomnia Social History Tobacco Use Types [...] Description 03/20/2025 1:15 PM EDT Office Visit [facility] [address] [place] [address] Brandon Caballero MD [address] [place] [address] 03/23/2025 12:00 PM EDT Office Visit [address] [address] Brittany Saldana MD [address] [place] [address] 04/12/2025 11:45 AM EDT Office Visit [address] [address] Brittany Saldana MD [address] [place] [address] documented as of this encounter Goals Goal [...] documented as of this encounter Care Teams Insurance Follow Up Specialist Relationship Specialty Start Date End Date Brittany Saldana MD [address] [place] [address] PCP - General Family Medicine 05/08/20 Darrin Hernandez FNP [address] [place] [address] Nurse Practitioner Family Medicine 10/19/23 documented as of this encounter
--- OUTSIDE RECORDS SUMMARY | 2025-03-13 14:37 | XMS_ITS | Encounter Summary ---
Author Organization [employer] Address [address] [place] [address] 7t [place] [address] Care Team Providers Care Vp Ad Products And Planning Name Role Phone Brittany Saldana MD Primary Care Provider + Darrin Hernandez Unavailable Unavailable Encounter Details Date Type Department Care Team (Late st Contact Info) Description 10/10/2024 Abstract [facility] 230 [place] [address] Brittany Saldana MD [address] [place] [address] Social History Tobacco Use Types Packs/Day Years [...] Description 03/20/2025 1:15 PM EDT Office Visit [facility] [address] [place] [address] Brandon Caballero MD [address] [place] [address] 03/23/2025 12:00 PM EDT Office Visit [address] [address] Brittany Saldana MD [address] [place] [address] 04/12/2025 11:45 AM EDT Office Visit [address] [address] Brittany Saldana MD [address] [place] [address] [phone] documented as of this encounter Goals Goal [...] documented as of this encounter Care Teams Vp Ad Products And Planning Relationship Specialty Start Date End Date Brittany Saldana MD [address] [place] [address] PCP - General Family Medicine 05/08/20 Darrin Hernandez FNP [address] [place] [address] Nurse Practitioner Family Medicine 10/19/23 documented as of this encounter
--- OUTSIDE RECORDS SUMMARY | 2025-03-13 14:37 | XMS_ITS | Encounter Summary ---
Author Organization [employer] Address [address] [place] [address] 7 [place] [address] Care Team Providers Care Boom Crane Operator Name Role Phone Brittany Saldana MD Primary Care Provider + Darrin Hernandez Unavailable Unavailable Encounter Details Date Type Department Care Team (Latest Contact Info) Description 08/07/2022 Abstract [facility] Dental, Provider, DDS Social History [...] Description 03/20/2025 1:15 PM EDT Office Visit [facility] [address] [place] [address] Brandon Caballero MD [address] [place] [address] 03/23/2025 12:00 PM EDT Office Visit [facility] [address] [place] [address] Brittany Saldana MD [address] [place] [address] 04/12/2025 11:45 AM EDT Office Visit [facility] 230 [place], [place] [phone] Brittany Saldana MD 230 [place] [address] documented as of this encounter Visit Diagnoses Not on filedocumented in this encounter Care Teams Boom Crane Operator Relationship Specialty Start Date End Date Brittany Saldana MD [address] [place] [address] [phone] PCP - General Family Medicine 05/08/20 Darrin Hernandez FNP [address] [place] [address] Nurse Practitioner Family Medicine 10/19/23 documented as of this encounter
--- OUTSIDE RECORDS SUMMARY | 2025-03-13 14:37 | XMS_ITS | Patient Health Record ---
Author Organization [employer] Address [address] [facility] [address] [place] [address] Support Name Relationship Address Phone Dane Calles Guarantor Unknown [phone] Allergies Allergen (clinical drug ingredient) Drug/Non Drug [...] Disorder due to type 2 diabetes mellitus (184699934) Type 2 diabetes mellitus with unspecified complications (E11.8) Active confirmed Problem Morbid obesity (disorder) (143878377) Morbid (severe) obesity due to excess calories (E66.01) Active confirmed Problem Mixed hyperlipidemia (438877999) Mixed hyperlipidemia (E78.2) Active confirmed Problem Alcohol dependence (22605362) Alcohol dependence, uncomplicated (F10.20) Active confirmed Problem Mild recurrent major depression (01952501) Major depressive disorder, recurrent, mild (F33.0) Active confirmed Problem 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, intractable, 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) Active confirmed Problem 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, intractable, without status epilepticus (G40.219) Active confirmed Problem Obstructive sleep apnea syndrome (disorder) (90365973) Obstructive sleep apnea (adult) (pediatric) (G47.33) Active confirmed Problem Essential hypertension (35237732) Essential (primary) hypertension (I10) Active confirmed Problem Gastro-esophageal reflux disease without esophagitis (209310070) Gastro-esophageal reflux disease without esophagitis (K21.9) Active confirmed Problem Neurofibromatosis (90836024) Neurofibromatosis , 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) Active confirmed Problem Somnolence (91826665) Somnolence (R40.0) Active confirmed Problem Attention deficit hyperactivity disorder, predominantly inattentive type (disorder) (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) Attention and concentration deficit (R41.840) Active confirmed Problem Body mass index 40+ - severely obese (760496674) Body mass index (BMI) 40.0-44.9, adult (Z68.41) Active confirmed Problem Lower urinary tract symptoms due to benign prostatic hypertrophy (28833546598800) Benign prostatic hyperplasia with lower urinary tract symptoms (N40.1) Active confirmed Problem Morbid obesity (165415039) Morbid obesity (E66.01) Active confirmed Plan Of Treatment No Information Medical (General) History Medical History History ICD Code hypertension, benign acid reflux BPH see Urology Attention deficit disorder Neurofibromatosis complex partial seizure disorder Surgical History Surgery Date(Month/Year) Umblical hernia repair 2004 Tonsellectomy Cyst in throat removed
--- OUTSIDE RECORDS SUMMARY | 2025-03-13 14:37 | XMS_ITS | Encounter Summary ---
Author Organization [employer] Address [address] [facility] 7t [place] [address] Care Team Providers Care Market Development Executive Name Role Phone Brittany Saldana MD Primary Care Provider + Darrin Hernandez Unavailable Unavailable Encounter Details Date Type Department Care Team ([facility] st Contact Info) Description 03/13/2025 Telephone [facility] [address] [place] [address] Brittany Saldana MD [address] [place] [address] Social History Tobacco Use Types Packs/Day Years [...] encounter Miscellaneous Notes * Telephone Encounter - Jennifer Sanders LPN - 03/13/2025 12:10 PM EDT Rx generated and Docusign to PCP for review and signature to then be faxed to [facility] as requested by pt documented in this encounter Plan of Treatment Upcoming Encounters Date Type Department Care Team (Late st Contact Info) Description 03/20/2025 1:15 PM EDT Office Visit [facility] [address] [place] [address] Brandon Caballero MD [address] [place] [address] 03/23/2025 12:00 PM EDT Office Visit [address] [address] Brittany Saldana MD [address] [place] [address] 04/12/2025 11:45 AM EDT Office Visit [address] [place] [address] Brittany Saldana MD [address] [place] [address] documented as of this encounter Goals Goal Patient Goal Type Associated Problems Recent Progress Patient-Stated? Author Blood Pressure < 140/90 Blood Pressure 136/62(2024 11:12 AM EDT) No Venkatesh Skinner, PharmHillary Decrease the frequency of unwanted emotions so that daily functioning is improved General No Janae Walden, RN Hemoglobin A1c < 7 Result Component 5.1( 11:19 AM EST) No Venkatesh Skinner, [place] documented as of this encounter Visit Diagnoses Not on filedocumented in this encounter Additional Health Concerns Assessment Noted Time PHQ-9 Depression Total Score: 2 12/07/19 25 10:39 AM EST documented as of this encounter Care Teams Market Development Executive Relationship Specialty Start Date End Date Brittany Saldana MD [address] [place] [address] PCP - General Family Medicine 05/08/20 Darrin eHrnandez FNP [address] [place] [address] Nurse Practitioner Family Medicine 10/19/23 documented as of this encounter
--- OUTSIDE RECORDS SUMMARY | 2025-03-13 14:37 | XMS_ITS | Encounter Summary ---
Author Organization [employer] Address [address] [place] [address] 7 [place] [address] Care Team Providers Care Dental Prosthetist Name Role Phone Brittany Saldana MD Primary Care Provider + Darrin Hernandez Unavailable Unavailable Reason for Visit * Reason Onset Date Comments Appointment 09/10/2023 Encounter Details Date Type Department Care Team (Late st Contact Info) Description 09/10/2023 Telephone [facility] [address] [place] [address] Misbah Kerraris [address] [place] [address] Appointment Social History Tobacco Use Types Packs/Day [...] cleaning appt. Last appt he had in [place] was deep leaning in September and the [...] Description 03/20/2025 1:15 PM EDT Office Visit [facility] [address] [place] [address] Brandon Caballero MD [address] [place] [address] 03/23/2025 12:00 PM EDT Office Visit [facility] [address] [place] [address] Brittany Saldana MD [address] [place] [address] 04/12/2025 11:45 AM EDT Office Visit [facility] [address] [place] [address] Brittany Saldana MD [address] [place] [address] documented as of this encounter Visit Diagnoses Not on filedocumented in this encounter Additional Health Concerns Assessment Noted Time PHQ-9 Depression Total Score: 4 09/06/20 23 11:30 AM EDT documented as of this encounter Care Teams Dental Prosthetist Relationship Specialty Start Date End Date Brittany Saldana MD [address] [place] [address] PCP - General Family Medicine 05/08/20 Darrin Hernandez FNP [address] [place] [address] Nurse Practitioner Family Medicine 10/19/23 documented as of this encounter
--- OUTSIDE RECORDS SUMMARY | 2025-03-13 14:38 | XMS_ITS | Encounter Summary ---
Author Organization [employer] Address [address] [place] [address] 7 [place] [address] Care Team Providers Care Radiology Administrator Name Role Phone Brittany Saldana MD Primary Care Provider + Darrin Hernandez Unavailable Unavailable Reason for Visit * Reason Onset Date Comments Med Refill 08/03/2024 Encounter Details Date Type Department Care Team (Late st Contact Info) Description 08/03/2024 Refill [facility] [address] [place] [address] Brandon Caballero MD [address] [place] [address] Type 2 diabetes mellitus without complication, without long-term current use of insulin ([facility]) Social History Tobacco Use Types [...] the past 12 months, has t he [employer] gas, oil or water company threatened to [...] Description 03/20/2025 1:15 PM EDT Office Visit [address] [address] Brandon Caballero MD [address] [place] [address] 03/23/2025 12:00 PM EDT Office Visit [address] [address] Brittany Saldana MD [address] [place] [address] 04/12/2025 11:45 AM EDT Office Visit [address] [address] Brittany Saldana MD [address] [place] [address] documented as of this encounter Goals Goal [...] complication, without long-term current use of insulin ([facility]) documented in this encounter Additional Health Concerns Assessment Noted Time PHQ-9 Depression Total Score: 4 03/06/20 24 2:22 PM EDT documented as of this encounter Care Teams Radiology Administrator Relationship Specialty Start Date End Date Brittany Saldana MD [address] [place] [address] PCP - General Family Medicine 05/08/20 Darrin Hernandez FNP [address] [place] [address] Nurse Practitioner Family Medicine 10/19/23 documented as of this encounter
--- OUTSIDE RECORDS SUMMARY | 2025-03-13 14:38 | XMS_ITS | Encounter Summary ---
Author Organization [employer] Address [address] [place] [address] 7t [place] [address] Care Team Providers Care A Auxiliary Name Role Phone Brittany Saldana MD Primary Care Provider + Darrin Hernandez Unavailable Unavailable Reason for Visit * Reason Onset Date Comments Durable Medical Equipment 02/17/2023 Encounter Details Date Type Department Care Team (Late st Contact Info) Description 02/17/2023 Telephone [facility] [address] [place] [address] Brittany Saldana MD [address] [place] [address] Durable Medical Equipment Social History Tobacco Use [...] . [facility] . Any questions please contact pt at [phone]. documented in this encounter Plan of Treatment Upcoming Encounters Date Type Department Care Team (Late st Contact Info) Description 03/20/2025 1:15 PM EDT Office Visit [facility] [address] [place] [address] Brandon Caballero MD [address] [place] [address] 03/23/2025 12:00 PM EDT Office Visit [facility] [address] [place] [address] Brittany Saldana MD [address] [place] [address] 04/12/2025 11:45 AM EDT Office Visit [address] [address] Brittany Sladana MD [address] [place] [address] documented as of this encounter Visit Diagnoses Not on filedocumented in this encounter Additional Health Concerns Assessment Noted Time PHQ-9 Depression Total Score: 10 023 10:47 AM EDT documented as of this encounter Care Teams A Auxiliary Relationship Specialty Start Date End Date Brittany Saldana MD [address] [place] [address] PCP - General Family Medicine 05/08/20 Darrin Hernandez FNP [address] [place] [address] Nurse Practitioner Family Medicine 10/19/23 documented as of this encounter
--- OUTSIDE RECORDS SUMMARY | 2025-03-13 14:38 | XMS_ITS | Encounter Summary ---
Author Organization [employer] Address [address] [place] [address] 7t [place] [address] Care Team Providers Care Pari Mutuel Ticket Seller Name Role Phone Brittany Saldana MD Primary Care Provider + Darrin Hernandez Unavailable Unavailable Reason for Visit * Reason Onset Date Comments Durable Medical Equipment 01/05/2023 Encounter Details Date Type Department Care Team (Late st Contact Info) Description 01/05/2023 Telephone [facility] [address] [place] [address] Brittany Saldana MD [address] [place] [address] Durable Medical Equipment Social History Tobacco Use [...] If any questions please contact pt at [phone] documented in this encounter Plan of Treatment Upcoming Encounters Date Type Department Care Team (Late st Contact Info) Description 03/20/2025 1:15 PM EDT Office Visit [facility] [address] [place] [address] Brandon Caballero MD [address] [place] [address] 03/23/2025 12:00 PM EDT Office Visit [address] [address] Brittany Saldana MD [address] [place] [address] 04/12/2025 11:45 AM EDT Office Visit [address] [address] Brittany Saldana MD [address] [place] [address] documented as of this encounter Visit Diagnoses Not on filedocumented in this encounter Additional Health Concerns Assessment Noted Time PHQ-9 Depression Total Score: 4 12/31/19 23 10:56 AM EST documented as of this encounter Care Teams Pari Mutuel Ticket Seller Relationship Specialty Start Date End Date Brtitany Saldana MD [address] [place] [address] PCP - General Family Medicine 05/08/20 Darrin Hernandez FNP [address] [place] [address] ERWIN Angulo [address] Nurse Practitioner Family Medicine 10/19/23 documented as of this encounter
--- OUTSIDE RECORDS SUMMARY | 2025-03-13 14:38 | XMS_ITS | Encounter Summary ---
Author Organization [employer] Address [address] [place] [address] 7t [place] [address] Care Team Providers Care Harbor Boat Pilot Name Role Phone Brittany Saldana MD Primary Care Provider + Darrin Hernandez Unavailable Unavailable Reason for Visit * Reason Onset Date Comments Durable Medical Equipment 02/15/2023 Encounter Details Date Type Department Care Team (Late st Contact Info) Description 02/15/2023 Telephone [facility] [address] [place] [address] Brittany Saldana MD [address] [place] [address] Durable Medical Equipment Social History Tobacco Use [...] EDT Office Visit [facility] [address] [place] [address] Brandon Caballero MD [address] [place] [address] 03/23/2025 12:00 PM EDT Office Visit [facility] [address] [place] [address] Brittany Saldana MD [address] [place] [address] 04/12/2025 11:45 AM EDT Office Visit [address] [address] Brittany Saldana MD [address] [place] [address] documented as of this encounter Visit Diagnoses Not on filedocumented in this encounter Additional Health Concerns Assessment Noted Time PHQ-9 Depression Total Score: 10 023 10:47 AM EDT documented as of this encounter Care Teams Harbor Boat Pilot Relationship Specialty Start Date End Date Brittany Saldana MD [address] [place] [address] PCP - General Family Medicine 05/08/20 Darrin Hernandez FNP [address] [place] [address] Nurse Practitioner Family Medicine 10/19/23 documented as of this encounter
--- OUTSIDE RECORDS SUMMARY | 2025-03-13 14:38 | XMS_ITS | Encounter Summary ---
Author Organization [employer] Address [address] [place] [address] 7 [place] [address] Care Team Providers Care Director Of Cardiology Name Role Phone Brittany Saldana MD Primary Care Provider + Darrin Hernandez Unavailable Unavailable Reason for Visit * Reason Onset Date Comments Med Refill 01/09/2025 Encounter Details Date Type Department Care Team (Late st Contact Info) Description 01/09/2025 Refill [facility] [address] [place], [place] [phone] Brittany Saldana MD [address] [place] [address] Social History Tobacco Use Types Packs/Day Years [...] Description 03/20/2025 1:15 PM EDT Office Visit [address] [address] Brandon Caballero MD [address] [place] [address] 03/23/2025 12:00 PM EDT Office Visit [address] [address] Brittany Saldana MD [address] [place] [address] 04/12/2025 11:45 AM EDT Office Visit [address] [address] Brittany Saldana MD [address] [place] [address] documented as of this encounter Goals Goal [...] of this encounter Care Teams Director Of Cardiology Relationship Specialty Start Date End Date Brittany Saldana MD [address] [place] [address] PCP - General Family Medicine 05/08/20 Darrin Hernandez FNP [address] [place] [address] Nurse Practitioner Family Medicine 10/19/23 documented as of this encounter
--- OUTSIDE RECORDS SUMMARY | 2025-03-13 14:38 | XMS_ITS | Encounter Summary ---
Author Organization [employer] Address [address] [place] [address] 7 [place] [address] Care Team Providers Care Ep Technologist Name Role Phone Brittany Saldana MD Primary Care Provider + Darrin Hernandez Unavailable Unavailable Reason for Visit * Reason Comments Med Refill Encounter Details Date Type Department Care Team (Late st Contact Info) Description 03/15/2023 Refill [facility] [address] [place] [address] Brittany Saldana MD [address] [place] [address] Primary hypertension Social History Tobacco Use Types [...] Description 03/20/2025 1:15 PM EDT Office Visit [facility] [address] [place] [address] Brandon Caballero MD [address] [place] [address] 03/23/2025 12:00 PM EDT Office Visit [facility] [address] [place] [address] Brittany Saldana MD [address] [place] [address] 04/12/2025 11:45 AM EDT Office Visit [facility] [address] [place] [phone] Brittany Saldana MD [address] [place] [address] documented as of this encounter Visit Diagnoses Diagnosis Primary hypertension Unspecified essential hypertension documented in this encounter Additional Health Concerns Assessment Noted Time PHQ-9 Depression Total Score: 10 02/11/ 023 10:47 AM EDT documented as of this encounter Care Teams Ep Technologist Relationship Specialty Start Date End Date Brittany Saldana MD [address] [place] [address] PCP - General Family Medicine 05/08/20 Darrin Hernandez FNP [address] [place] [address] Nurse Practitioner Family Medicine 10/19/23 documented as of this encounter
--- OUTSIDE RECORDS SUMMARY | 2025-03-13 14:38 | XMS_ITS | Clinical Summary ---
Author Organization [employer] Address [address] [place] [address] 7 [place] [address] Care Team Providers Care Wildlife Control Agent Name Role Phone Brittany Saldana MD [...] without long-term current use of insulin ([facility]) Use 1 lancet to monitor [...] g 08/11/20 24 025 Active glucose blood (Teespringuch Ultra) test stripIndication s:Type 2 diabetes mellitus without complication, without long-term current use of insulin ([facility]) TEST BLOOD SUGAR TWICE DAILY [...] without long-term current use of insulin ([facility]) TAKE ONE CAPSULE BY MOUTH EVERY MORNING, [...] BEDTIME 30 tablet 3 02/14/20 25 Active melatonin 5 MG [...] order (will not trigger notification to Pharmacy)) predniSONE (Deltasone) 20 MG tabletIndicatio ns:Sudden right hearing loss Take 1 tablet (20 mg) by mouth Once per day for 10 days. 10 tablet 02/22/20 25 025 Active Problems Problem Noted Date Diagnosed Date Sudden right hearing loss 02/28/2025 Recurrent major depressive disorder, in partial remission [...] AM EDT): - obtain holter monitor from [facility] ordered by weight management program - will [...] exercise, life style modifications, diet, referral to graphic specialist. Discussed re lower calorie intake, increase [...] and fu with . Order TSH/testosterone levels, prison psychiatrist input appreciated. Iliopsoas bursitis of left hip [...] IZs -RSV pending not available today in [facility] pharmacy Advise to have it at [...] management. For any issues or concerns contact [facility]. Continue with therapist as usual. I [...] he he was not contacted yet, per credit administration specialist, Kalyan reid contact him on 05/11/23 [...] for 6 months. He will be Contacting [facility] for him to engage in Ind. [...] treatment engagement. PLAN: 1. Follow up with [facility]: Recommended for follow-up: during AUD appts. [...] treatment engagement. PLAN: 1. Follow up with [facility]: Recommended for follow-up: during AUD appts. 2. Patient goal is learn to manage sxs and improve his mental health. 3. Behavioral Recommendations a. Ind. Therapy b. Self-development c. HC support as needed. 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 Continue Lisinopril 7.5 [...] Encounters Date Type Department Care Team Description 03/13/2025 Telephone [facility] [address] [place] [address] Brittany Saldana MD 03/09/2025 Travel 03/07/2025 10:30 AM EDT Clinical Support [facility] [address] [place] [phone] Janae Walden, RN Alcohol use disorder, severe, in sustained remission ([facility]/HCC) 03/07/2025 Travel 03/06/2025 Patient Outreach [facility] [address] [place] [phone] Jose Chang Recovery Supports 03/01/[address] [address] Brittany Saldana MD Appointment Request 02/28/2025 Orders Only [facility] [address] [place] [address] Brittany Saldana MD Sudden right hearing loss (Primary Dx) 02/27/2025 Patient Outreach [address] [address] OlveraTed Recovery Supports 02/26/[address] [address] Brittany Saldana MD Results 02/26/2025 Orders Only [facility] [address] [place] [address] [place], Alexus, PACKAGE DELIVERY DRIVER Other specified abdominal hernia without obstruction or gangrene (Primary Dx) 02/21/2025 10:45 AM EDT Office Visit [address] [address] Xiao Hunter NP Sudden right hearing loss (Primary Dx); Elevated blood pressure reading in office with diagnosis of hypertension 02/21/2025 Travel 02/20/2025 Patient Outreach [address] [address] Jose Chang Recovery Supports 02/20/[address] [address] Brittany Saldana MD Durable Medical Equipment (DME Order: Compression Stockings) 02/20/[address] [address] Brittany Saldana MD 02/20/[address] [address] Brittany Saldana MD Nurse Triage 02/14/2025 9:00 AM EDT Office Visit [address] [address] Migue Stephens MD Alcohol use disorder, severe, in sustained remission (CMS/HCC) (Primary Dx) 02/14/2025 Travel 02/12/2025 Refill [facility] [address] [place] [phone] Brittany Saldana MD Chronic rhinitis; Acute insomnia 02/12/2025 Refill [facility] [address] [facility] [place] [address] Brittany Saldana MD 02/07/2025 10:30 AM EDT Office Visit [facility] [place] [address] Migue Stephens MD Alcohol use disorder, severe, in sustained remission (CMS/HCC) (Primary Dx) 02/07/2025 Travel 02/06/2025 Patient Outreach [facility] [place] [address] Jose Chang Recovery Supports 01/30/2025 1:15 PM EDT Office Visit [facility] [place] [address] Brandon Caballero MD Alcohol use disorder, severe, in sustained remission (CMS/HCC) (Primary Dx) 01/30/2025 Patient Outreach [facility] [place] [address] Jose Chang Recovery Supports 01/30/2025 Travel 01/24/2025 10:30 AM EDT Office Visit [facility] [place] [address] Migue Stephens MD Alcohol use disorder, severe, in sustained remission (CMS/HCC) (Primary Dx) 01/24/2025 Travel 01/23/2025 Patient Outreach [facility] [place] [address] Jose Chang Recovery Supports 01/23/2025 Travel 01/22/2025 11:30 AM EDT Office Visit [facility] [place] [address] [place], [place], PACKAGE DELIVERY DRIVER Nodule of skin of abdomen (Primary Dx); Primary hypertension 01/22/2025 Travel 01/20/2025 Travel 2025 Refill [facility] [place] [address] Brittany Saldana MD Mild intermittent asthma without complication 2025 Telephone [facility] [place] [address] Brittany Saldana MD Nurse Triage 01/17/2025 10:00 AM EST Office Visit [facility] [place] [address] Migue Stephens MD Alcohol use disorder, severe, in sustained remission (CMS/HCC) (Primary Dx) 01/17/2025 Telephone [facility] [address] Brittany Saldana MD 01/17/2025 Patient Outreach [facility] [address] [place] [address] Jose Chang Recovery Supports 01/17/2025 Travel 01/16/2025 Patient Outreach [place] [address] Jose Chang Recovery Supports 01/11/2025 Telephone [facility] [address] Brittany Saldana MD Appointment Request 01/09/2025 Refill [place] [address] Brittany Saldana MD 01/09/2025 Patient Outreach [place] [address] Rolando Amos Recovery Supports 01/08/2025 Refill [facility] [place] [address] Brittany Saldana MD 01/04/2025 Telephone [facility] [place] [address] Brittany Saldana MD May recall 12/27/2024 10:30 AM EST Office Visit [facility] [address] Migue Stephens MD Alcohol use disorder, severe, in sustained remission (CMS/HCC) (Primary Dx) 12/27/2024 Travel 12/26/2024 Patient Outreach [place] [address] Cristian Otero 12/22/2024 4:00 PM EST Office Visit [place] [address] Eb Merino MD Hemangioma of skin (Primary Dx); Neurofibromatosis (nonmalignant) (CMS/HCC) 12/22/2024 Travel 12/21/2024 Travel 12/20/2024 Telephone [facility] [address] [place] [address] Brittany Saldana MD Durable Medical Equipment (DME Reuqest: [facility]) 12/19/2024 1:15 PM EST Office Visit [address] [address] Brandon Caballero MD Alcohol use disorder, severe, in sustained remission (CMS/HCC) (Primary Dx) 12/19/2024 Patient Outreach [address] [phone] Jose Chang Recovery Supports 12/19/2024 Travel 12/13/2024 10:30 AM EST Office Visit [address] [address] Migue Stephens MD Alcohol use disorder, severe, in sustained remission (CMS/HCC) (Primary Dx) 12/13/2024 Travel from Last 3 Months Immunizations Name [...] Description 03/20/2025 1:15 PM EDT Office Visit [address] [address] Brandon Caballero MD [address] [place] [address] 03/23/2025 12:00 PM EDT Office Visit [address] [address] Brittany Saldana MD [address] [place] [address] 04/12/2025 11:45 AM EDT Office Visit [address] [address] Brittany Saldana MD [address] [place] [address] Health Maintenance Due Date Last Done Comments [...] Hepatitis A Vaccines Aged Out 09/02/2022, 02/18/20 22 No longer eligible based on patient's age [...] 11:12 AM EDT) No Venkatesh Skinner PharmD Decrease the frequency of unwanted emotions so that daily functioning is improved General No Janae Walden, CORTES Hemoglobin A1c < 7 Result Component 5.1( 11:19 AM EST) No Venkatesh Skinner PharmD Procedures Procedure Name Priority Date/Time Associated Diagnosis Comments MR BRAIN W AND WO CONTRAST Urgent 02/28/2025 10:45 AM EDT Sudden right hearing loss US ABDOMEN LIMITED Routine 02/22/2025 11 :10 [...] AM EDT Sudden right hearing loss POCT GLYCATED HEMOGLOBIN, TOTAL Routine 12/07/2024 11:19 AM EST Type 2 diabetes mellitus without complication, without long-term current use of insulin ([facility]) HM COLONOSCOPY Routine 09/19/2024 ALBUMIN, RANDOM URINE W/CREATININE Routine 05/02/2024 1:17 PM EDT LIPID PANEL, STANDARD Routine 12/28/2023 9:54 AM EST ZZZ HISTORICAL HEPATITIS C AB W/REFL TO HCV RNA, QN, PCR Routine 12/09/2021 11:13 AM EST from Last 3 Months or Most Recently Relevant to Health Maintenance Results * Mr Brain w/ and w/o Contrast (02/28/2025 10:45 AM EDT) Anatomical Region Laterality Modality Brain Magnetic Resonan ce 02/28/2025 10:4 5 AM EDT Narrative 02/28/2025 12:13 PM EDT ? [facility] ?[address] ?[place] [address] ? Magnetic Resonance Report ? Signed ? Patient: Dane Calles ?MR#: [id number] ?? 89 ? : 1955 ?Acct:[id number] ? Age/Sex: 70 / M ?ADM Date: 02/28/25 ? Loc: HO.MRI ? Attending Dr: Xiao Hunter ? Ordering Physician: Xiao Hunter ?? Date of Service: 02/28/25 ?? Procedure(s): MR head/brain wo/w con ?? Accession Number(s): [id number] ? cc: Xiao Hunter; Brittany Saldana MD ? EXAMINATION: ?? MR BRAIN WITHOUT AND WITH CONTRAST ? CLINICAL INFORMATION: ?? Sudden hearing loss. ? COMPARISON: ?? September 30, 2024. ? TECHNIQUE: ?? Multiplanar, multisequence MRI of the brain was obtained before and ?? after the intravenous administration of 6.5 mL gadolinium based ?? (Gadavist). ? FINDINGS: ?? No restricted diffusion. ?? No acute intracranial hemorrhage, mass effect, midline shift, ?? hydrocephalus or herniation. ?? No signal abnormality or enhancing lesion within the cochlear or the ?? vestibular components of the 8th cranial nerves. ?? No enhancing lesion in the cerebellopontine angle cistern or of the ?? perimesencephalic cisterns. ?? No enhancing lesion in the brainstem. ?? There is a dominant left internal jugular bulb/transverse and sigmoid ?? sinuses. ?? There is a slightly high riding left internal jugular bulb. ?? The anterior inferior cerebellar artery is type III on the left side ?? and type I on the right side. ?? The Meckel's caves demonstrated no signal abnormality or enhancing ?? lesion. ?? The cisternal segments and entry zones of the trigeminal nerves ?? demonstrated no signal abnormality or enhancing lesion. ?? Flow-void signal within the main cerebral vessels is normal. ?? No abnormal enhancement in the intra-axial and/or extra-axial ?? compartment of the cranium. ?? Bilateral multifocal patchy and punctate deep periventricular white ?? matter hyperintense T2 FLAIR signal. ?? Prominence of the extra-axial CSF spaces cerebral sulci and ventricles. ?? Sellar/suprasellar region demonstrated no signal abnormality or ?? enhancing lesion. ?? Craniocervical junction is intact and normal. ?? There is a 1 cm lobulated and exophytic enhancing soft tissue lesion ?? within the skin/dermis of the right occipital region. ? MR/MR head/brain wo/w con ?? IMPRESSION: ?? Slight high riding left internal jugular bulb. ?? No vestibular schwannoma. ?? No acute stroke. ?? Nonspecific and stable T2 FLAIR white matter signal. ?? 1 cm lobulated skin lesion, right occipital. ? Electronically signed by: ??Misael Caruso MD ??02/28/2025 12:10 PM ?? EDT ? Dictated By: ?Misael Peterson MD ? Signed By: ?<Electronically signed by Misael Serna MD in OV> ? 02/28/25 1210 ? DD/ 1045 ? TD/TT: 02/28/25 1120 ? Journeyman Pressman: ? Procedure Note Brian Tinajero - 02/28/[address] [address] Magnetic Resonance Report Signed Patient: Dane Calles R#: [id number] [birth year] : 7Acct:[id number] Age/Sex: 70 / MADM Date: 02/28/25 Loc: HO.MRI Attending Dr: Xiao Hunter Ordering Physician: Xiao Hunter Date of Service: 02/28/25 Procedure(s): MR head/brain wo/w con Accession Number(s): [id number] cc: Xiao Hunter; Brittany Saldana MD EXAMINATION: MR BRAIN WITHOUT AND WITH CONTRAST CLINICAL INFORMATION: Sudden hearing loss. COMPARISON: September 30, 2024. TECHNIQUE: Multiplanar, multisequence MRI of the brain was obtained before and after the intravenous administration of 6.5 mL gadolinium based (Gadavist). FINDINGS: No restricted diffusion. No acute intracranial hemorrhage, mass effect, midline shift, hydrocephalus or herniation. No signal abnormality or enhancing lesion within the cochlear or the vestibular components of the 8th cranial nerves. No enhancing lesion in the cerebellopontine angle cistern or of the perimesencephalic cisterns. No enhancing lesion in the brainstem. There is a dominant left internal jugular bulb/transverse and sigmoid sinuses. There is a slightly high riding left internal jugular bulb. The anterior inferior cerebellar artery is type III on the left side and type I on the right side. The Meckel's caves demonstrated no signal abnormality or enhancing lesion. The cisternal segments and entry zones of the trigeminal nerves demonstrated no signal abnormality or enhancing lesion. Flow-void signal within the main cerebral vessels is normal. No abnormal enhancement in the intra-axial and/or extra-axial compartment of the cranium. Bilateral multifocal patchy and punctate deep periventricular white matter hyperintense T2 FLAIR signal. Prominence of the extra-axial CSF spaces cerebral sulci and ventricles. Sellar/suprasellar region demonstrated no signal abnormality or enhancing lesion. Craniocervical junction is intact and normal. There is a 1 cm lobulated and exophytic enhancing soft tissue lesion within the skin/dermis of the right occipital region. MR/MR head/brain wo/w con IMPRESSION: Slight high riding left internal jugular bulb. No vestibular schwannoma. No acute stroke. Nonspecific and stable T2 FLAIR white matter signal. 1 cm lobulated skin lesion, right occipital. Electronically signed by: Misael Caruso MD 02/28/2025 12:10 PM EDT Dictated By: Misael Peterson MD Signed By: <Electronically signed by Misael Serna MDin OV> 02/28/25 1210 DD/ 1045 TD/TT: 02/28/25 1120 Journeyman Pressman: us Xiao Hunter RO[address] OILER IMG MRI PROCEDURES Final Result * US Abdomen Limited (02/22/2025 11:10 AM EDT) Anatomical Region Laterality Modality Abdomen Ultrasound 02/22/2025 11:1 0 AM EDT Narrative 02/22/2025 11:12 AM EDT ? [facility] ?[address] ?[place] [address] ? Ultrasound Report ? Signed ? Patient: Dane Calles ?MR#: [id number] ?? 89 ? : 1955 ?Acct:[id number] ? Age/Sex: 70 / M ?ADM Date: 02/22/25 ? Loc: HO.US ? Attending Dr: Alexus ZAFAR ? Ordering Physician: Alexus Nguyen ?? Date of Service: 02/22/25 ?? Procedure(s): US abdomen limited ?? Accession Number(s): [id number] ? cc: Brittany Saldana MD; Alexus Nguyen [...] DD/ 1110 ? TD/TT: 02/22/25 1110 ? Journeyman Pressman: ? Procedure Note Brian Tinajero - 02/22/[address] [address] Ultrasound Report Signed Patient: Dane Calles JMR#: [id number] [birth year] : 7Acct:[id number] Age/Sex: 70 / MADM Date: 02/22/25 Loc: HO. Attending Dr: Alexus ZAFAR Ordering Physician: PatrickAlexus alexander PACKAGE DELIVERY DRIVER Date of Service: 02/22/25 Procedure(s): US abdomen limited Accession Number(s): [id number] cc: Brittany Saldana MD; [facility] CLINICAL HISTORY: hx of umbilical hernia repairs, [...] 02/22/25 1111 DD/ 1110 TD/TT: 02/22/25 1110 Journeyman Pressman: [facility] IMG US PROCEDURES Final Resul t * Lyme Disease Ab with Reflex to Blot (IgG, IgM) (02/21/2025 11:24 AM EDT) Lyme Antibody Screen <0.90 index [facility] Comment:Index Interpretation ----- < 0.90 Negative [...] when erythemamigrans is apparent.THIS TEST WAS PERFORMED AT:[facility] [place] [phone] ZHAO MD Lyme Blot TNP [facility] 02/21/2025 11:2 4 AM EDT 02/21/2025 1:[address] [facility] LAB BLOOD ORDERABLES Final Resu lt [facility] [address] [place] [phone] * (ABNORMAL) CBC auto differential (02/21/2025 11:24 AM EDT) White Blood Count 6.9 4.8 - 10.8 X10*3/uL [facility] Red Blood Count 3.97(L) 4.60 - 5.80 X10*6/uL [facility] Hemoglobin 12.3(L) 14.0 - 18.0 g/dl [facility] Hematocrit 36.7(L) 42.0 - 52.0 % [facility] Mean Corpuscular Volume 92.4 80.0 - 98.0 fL [facility] Mean Corpuscular Hemoglobin 31.0 27.0 - 33.0 pg [facility] Mean Corpuscular HGB Conc 33.5 31.0 - 36.0 g/dl [facility] Red Cell Distribution Width 13.6 11.0 - 16.0 % [facility] Platelet Count 180 160 - 400 X10*3/uL [facility] Mean Platelet Volume 10.9 9.4 - 12.4 fL [facility] Neutrophils Percent Auto 65.6 45 - 73 % [facility] Imm Gran Pct Auto 0.4 0.0 - 0.4 % [facility] Lymphocytes Percent Auto 21.0 20 - 40 % [facility] Monocytes Percent Auto 11.3(H) 2 - 11 % [facility] Eosinophils Percent Auto 1.3 0 - 4 % [facility] Basophils Percent Auto 0.4 0 - 2 % [facility] NRBC Pct Auto 0.0 0.0 - 0.2 /100WBC [facility] Neutrophils Absolute Auto 4.5 2.0 - 8.3 x10*3/uL [facility] Imm Gran Abs Auto 0.03 0.00 - 0.03 X10*3/uL [facility] Lymphocytes Absolute Auto 1.5 1.2 - 4.9 X10*3/uL [facility] Monocytes Absolute Auto 0.8 0.1 - 1.2 X10*3/uL [facility] Eosinophils Absolute Auto 0.1 0.0 - 0.4 X10*3/uL [facility] Basophils Absolute Auto 0.0 0.0 - 0.2 X10*3/uL [facility] NRBC Abs Auto 0.000 0.0 - 0.012 X10*3/uL [facility] Blood Venous blood specimen / Unknown 02/21/2025 11:24 AM EDT 02/21/2025 1:[address] [facility] LAB BLOOD ORDERABLES Final Resu lt [facility] [address] [place] [address] [phone] * RPR (Monitor) with Reflex to??Titer (02/21/2025 11:24 AM EDT) RPR (Monitor) w/Refl Titer NON-REACTI VE NON-REACT JAMES [facility] Comment:THIS TEST WAS PERFOR MED AT:[facility] [place] [phone] ZHAO MD Rapid Plasma Reagin Ab Titer TNP [facility] Blood Venous blood specimen / Unknown 02/21/2025 11:24 AM EDT 02/21/2025 1:[address] [facility] LAB BLOOD ORDERABLES Final Resu lt Performing Organization Address City/[facility]/ZIP Co de Phone Number [facility] [address] [place] [address] [phone] * HIV-1/2 Antigen and Antibodies, Fourth Generation, with Reflexes (02/21/2025 11:24 AM EDT) HIV AB/AG Nonreactive Nonreactive [facility] Comment:HIV-1 p24 Ag and/or HIV-1/HIV-2 Ab not detected.A test result that is nonreactive does not exclude thepossibility of exposure to or infection with HIV-1 and/orHIV-2. Nonreactive results in this assay for individualswith prior exposure to HIV-1 and/or HIV-2 may be due toantigen and antibody levels that are below the limit ofdetection of this assay.[employer] HIV Ag/Ab Combo assay result andsupplemental assay results should be interpreted inconjunction with the patient's clinical presentation,history and other laboratory results. If the results areinconsistent with clinical evidence, additional testing issuggested to confirm the result. Blood Venous blood specimen / Unknown 02/21/2025 11:24 AM EDT 02/21/2025 1:[address] [facility] LAB BLOOD ORDERABLES Final Resu lt Performing Organization Address City/[facility]/ZIP Co de Phone Number [facility] [address] [place] [address] [phone] * POCT HGB A1C (12/07/2024 11:19 AM EST) Hemoglobin A1C 5.1 4.0 - 6.0 % Blood 12/07/2024 11:1 9 AM EST us Brittany Saldana MD POINT OF CARE TEST ENTER /EDIT ORDERABLES Final Result * (ABNORMAL) Hm Colonoscopy (09/19/2024) Colonoscopy Normal Normal [facility] Comment:poor prep us Brittany Saldana MD HEALTH MAINTENANCE Final Result Performing Organization Address [facility] Co de Phone Number [facility] [address] [place] [address] [phone] * Albumin, Random Urine W/Creatinine (05/02/2024 1:17 PM EDT) Creatinine, Urine 51.26 mg/dL [facility] Microalbumin Urine 7.0 mg/L [facility] Microalbum Creatinine Ratio Ur 13.6 <30 ug/mg cr [facility] Comment:Albumin/Creatinine R atio Reference Ranges: Normal: < 30 ug/mg creatinine Microalbuminuria: 30 - 300 ug/mg creatinineClinical Albuminuria: > 300 ug/mg creatinine 05/02/2024 1:17 PM EDT 05/02/2024 3:54 PM EDT us Brittany Saldana MD LAB URINE ORDERABLES Fin al Result Performing Organization Address [facility] Co de Phone Number [facility] [address] [place] [address] [phone] * (ABNORMAL) Lipid Panel, Standard (12/28/2023 9:54 AM EST) Triglycerides 71 <150 mg/dL [facility] Comment:Desirable Triglyceri de: less than 150 mg/dLBorderline High Triglyceride 150-199 mg/dLHigh Triglyceride: 200-499 mg/dLVery High Triglyceride: greater than or equal to 5OO mg/dL Cholesterol 115 <200 mg/dL [facility] Comment:Desirable Cholestero l: less than 200 mg/dLBorderline High Cholesterol: 200-239 mg/dLHigh Cholesterol: greater than 239 mg/dL LDL Cholesterol Calculated 68 <100 mg/dL [facility] Comment:Desirable LDL: less than 100 mg/dLNear Optimal/Above Optimal LDL: 110- 129 mg/dLBorderline High LDL: 130-159 mg/dLHigh LDL: 160-189 mg/dLVery High LDL: greater than or equal to 190 mg/dL HDL Cholesterol 33(L) >40 mg/dL [facility] Comment:Desirable HDL: great er than 40 mg/dL Note: This HDL assay may give artificially low results in patients with liver disease. 12/28/2023 9:54 AM EST 12/28/2023 9:54 AM EST us Generic External Data Provider LAB BLOOD ORDERAB LES Final Result Performing Organization Address City/[facility]/ZIP Co de Phone Number [facility] [address] [place] [address] [phone] * HEPATITIS C AB W/REFL TO HCV RNA, QN, PCR (12/09/2021 11:13 AM EST) HEPATITIS C ANTIBODY NON-REACT JAMES NON-REACT JAMES [facility] INDEX 0.03 <1.00 [facility] Comment: ?? HCV antibody was non-reactive. There is no laboratory ?? evidence of HCV infection. ?? In most cases, no further action is required. However, if recent HCV exposure is suspected, a test for HCV RNA (test code 59229) is suggested. ?? For additional information please refer to http://education.[employer]/faq/PZO37m6 (This link is being provided for informational/ educational purposes only.) ?? 12/09/2021 11:1 3 AM EST us Lulu Garcia ANP HISTORICAL/NON ORDERABLE LABS Fi nal Result Performing Organization Address City/[facility] [facility]/ZIP Co de Phone Number [facility] [address] from Last 3 Months or Most Recently Relevant to Health Maintenance Insurance FORMERLY [facility] ASSISTED OPTIONS (HMO D-SNP) ELOISA LONDONO [id number] Care Teams Wildlife Control Agent Relationship Specialty Start Date End Date Brittany Saldana MD [address] [place] [phone] PCP - General Family Medicine 05/08/20 Darrin Hernandez FNP [address] [place] [address] Nurse Practitioner Family Medicine 10/19/23
--- OUTSIDE RECORDS SUMMARY | 2025-03-13 14:38 | XMS_ITS | Clinical Summary ---
Author Organization [facility] ity Address [address] [place] [address] Care Team Providers Care Aerial Survey Technician Name Role Phone Samantha Faye MD Primary Care Provider [phone] Social History Tobacco Use Types Packs/Day Years [...] age to complete this topic Care Teams Aerial Survey Technician Relationship Specialty Start Date End Date Samantha Faye MD [address] [place] [phone] PCP - General 05/08/21
--- OUTSIDE RECORDS SUMMARY | 2025-03-13 14:38 | XMS_ITS | Encounter Summary ---
Author Organization [employer] Address [address] [place] [address] 7 [place] [address] Care Team Providers Care Labor Trainer Name Role Phone Brittany Saldana MD Primary Care Provider + Darrin Hernandez Unavailable Unavailable Reason for Visit * Reason Onset Date Comments Referral 09/24/2023 Encounter Details Date Type Department Care Team (Late st Contact Info) Description 09/24/2023 Telephone [facility] MEDICINE [address] [place] [address] Brittany Saldana MD [address] [place] [address] Referral Social History Tobacco Use Types Packs/Day [...] 9:02 AM EST [place] [facility] [place] new order for Occupational therapy for weakness in hands. States they received the referral for Occupational therapy but dx says hip pain. Please fax to [phone] Any questions, please contact sri at [phone] documented in this encounter Plan of Treatment Upcoming Encounters Date Type Department Care Team (Late st Contact Info) Description 03/20/2025 1:15 PM EDT Office Visit [facility] MEDICINE [address] [place] [phone] Brandon Caballero MD [address] [place] [phone] 03/23/2025 12:00 PM EDT Office Visit [facility] MEDICINE [address] [place] [address] Brittany Saldana MD [address] [place] [address] 04/12/2025 11:45 AM EDT Office Visit [facility] MEDICINE [address] [place] [address] Brittany Saldana MD [address] [place] [address] documented as of this encounter Visit Diagnoses Not on filedocumented in this encounter Additional Health Concerns Assessment Noted Time PHQ-9 Depression Total Score: 4 09/06/20 11:30 AM EDT documented as of this encounter Care Teams Labor Trainer Relationship Specialty Start Date End Date Brittany Saldana MD [address] [place] [address] PCP - General Family Medicine 05/08/20 Darrin Hernandez FNP [address] [place] [address] Nurse Practitioner Family Medicine 10/19/23 documented as of this encounter
--- OUTSIDE RECORDS SUMMARY | 2025-03-13 14:38 | XMS_ITS | Encounter Summary ---
Author Organization [employer] Address [address] [place] [address] 7 [place] [address] Care Team Providers Care Machine Engineer Name Role Phone Brittany Saldana MD Primary Care Provider + Darrin Hernandez Unavailable Unavailable Reason for Visit * Reason Onset Date Comments Med Refill 08/03/2024 Encounter Details Date Type Department Care Team (Late st Contact Info) Description 08/03/2024 Refill [facility] [address] [place] [address] [facility] [address] [place] [address] Mild intermittent asthma without complication Social History [...] Description 03/20/2025 1:15 PM EDT Office Visit [facility] [address] [place] [phone] Brandon Caballero MD [address] [place] [address] 03/23/2025 12:00 PM EDT Office Visit [address] [address] Brittany Saldana MD [address] [place] [address] 04/12/2025 11:45 AM EDT Office Visit [address] [address] Brittany Saldana MD [address] [place] [address] documented as of this encounter Goals Goal [...] documented as of this encounter Care Teams Machine Engineer Relationship Specialty Start Date End Date Brittany Saldana MD [address] [place] [address] PCP - General Family Medicine 05/08/20 Darrin Hernandez FNP [address] [place] [address] Nurse Practitioner Family Medicine 10/19/23 documented as of this encounter
--- OUTSIDE RECORDS SUMMARY | 2025-03-13 14:38 | XMS_ITS | Encounter Summary ---
Author Organization [employer] Address [address] [place] [address] 7 [place] [address] Care Team Providers Care Nuclear Reactor Engineer Name Role Phone Brittany Saldana MD Primary Care Provider + Darrin Hernandez Unavailable Unavailable Reason for Visit * Reason Onset Date Comments Med Refill 02/08/2024 Encounter Details Date Type Department Care Team (Late st Contact Info) Description 02/08/2024 Refill [facility]EDS [address] [place] [address] Brittany Saldana MD [address] [place] [address] Social History Tobacco Use Types Packs/Day Years [...] the past 12 months, has t he [employer] gas, oil or water company threatened to [...] Description 03/20/2025 1:15 PM EDT Office Visit [facility] MEDICINE [address] [place] [address] Brandon Caballero MD [address] [place] [address] 03/23/2025 12:00 PM EDT Office Visit [address] [address] Brittany Saldana MD [address] [place] [address] 04/12/2025 11:45 AM EDT Office Visit [address] [address] Brittany Saldana MD [address] [place] [address] documented as of this encounter Visit Diagnoses Not on filedocumented in this encounter Additional Health Concerns Assessment Noted Time PHQ-9 Depression Total Score: 1 12/27/19 24 1:53 PM EST documented as of this encounter Care Teams Nuclear Reactor Engineer Relationship Specialty Start Date End Date Brittany Saldana MD [address] [place] [address] PCP - General Family Medicine 05/08/20 Darrin Hernandez FNP [address] [place] [address] Nurse Practitioner Family Medicine 10/19/23 documented as of this encounter
== END 2025-03-13 13:30 | disposition home or self-care (01) ==
LOC: HO.HCS 12:47
PROVIDERS: PCP Internal Medicine
DX: I49.9 Cardiac arrhythmia, unspecified (principal); I50.30 Unspecified diastolic (congestive) heart failure; I10 Essential (primary) hypertension; E78.5 Hyperlipidemia, unspecified; E11.9 Type 2 diabetes mellitus without complications
CPT/HCPCS: 99214; G2211

== ENCOUNTER → 2025-03-13 12:46 | Outpatient (BNVA) | payer OTHER, SELFPAY | PROVIDERS: PCP Internal Medicine | DX: I49.9 Cardiac arrhythmia, unspecified (principal); I11.0 Hypertensive heart disease with heart failure; I50.30 Unspecified diastolic (congestive) heart failure; E78.5 Hyperlipidemia, unspecified; E11.9 Type 2 diabetes mellitus without complications | CPT/HCPCS: 99212 ==

== ENCOUNTER 2025-03-16 14:43 | Outpatient (AMB) | payer OTHER, SELFPAY ==
--- OUTSIDE RECORDS SUMMARY | 2025-03-16 14:47 | XMS_ITS | Patient Health Record ---
Author Organization [employer] Address [address] [facility] [address] [place] [address] Support Name Relationship Address Phone Dane Calles Guarantor Unknown [phone] Allergies Allergen (clinical drug ingredient) Drug/Non Drug [...] Disorder due to type 2 diabetes mellitus (722584128) Type 2 diabetes mellitus with unspecified complications (E11.8) Active confirmed Problem Morbid obesity (disorder) (325292189) Morbid (severe) obesity due to excess calories (E66.01) Active confirmed Problem Mixed hyperlipidemia (462963451) Mixed hyperlipidemia (E78.2) Active confirmed Problem Alcohol dependence (44042994) Alcohol dependence, uncomplicated (F10.20) Active confirmed Problem Mild recurrent major depression (08693672) Major depressive disorder, recurrent, mild (F33.0) Active confirmed Problem 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, intractable, 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) Active confirmed Problem 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, intractable, without status epilepticus (G40.219) Active confirmed Problem Obstructive sleep apnea syndrome (disorder) (87625991) Obstructive sleep apnea (adult) (pediatric) (G47.33) Active confirmed Problem Essential hypertension (26495707) Essential (primary) hypertension (I10) Active confirmed Problem Gastro-esophageal reflux disease without esophagitis (905345966) Gastro-esophageal reflux disease without esophagitis (K21.9) Active confirmed Problem Neurofibromatosis (34751150) Neurofibromatosis , 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) Active confirmed Problem Somnolence (54912134) Somnolence (R40.0) Active confirmed Problem Attention deficit hyperactivity disorder, predominantly inattentive type (disorder) (33221724) Attention and concentration deficit (R41.840) Active confirmed Problem Body mass index 40+ - severely obese (190828588) Body mass index (BMI) 40.0-44.9, adult (Z68.41) Active confirmed Problem Lower urinary tract symptoms due to benign prostatic hypertrophy (64409074668758) Benign prostatic hyperplasia with lower urinary tract symptoms (N40.1) Active confirmed Problem Morbid obesity (017003315) Morbid obesity (E66.01) Active confirmed Plan Of Treatment No Information Medical (General) History Medical History History ICD Code hypertension, benign acid reflux BPH see Urology Attention deficit disorder Neurofibromatosis complex partial seizure disorder Surgical History Surgery Date(Month/Year) Umblical hernia repair 2004 Tonsellectomy Cyst in throat removed
--- OUTSIDE RECORDS SUMMARY | 2025-03-16 14:47 | XMS_ITS | Clinical Summary ---
Author Organization [facility] ity Address [address] [place] [address] Care Team Providers Care Photo Print Specialist Name Role Phone Samantha Faye MD Primary Care Provider [phone] Social History Tobacco Use Types Packs/Day Years [...] age to complete this topic Care Teams Photo Print Specialist Relationship Specialty Start Date End Date Samantha Faye MD [address] [place] [phone] PCP - General 05/08/21
--- OUTSIDE RECORDS SUMMARY | 2025-03-16 14:47 | XMS_ITS | Clinical Summary ---
Author Organization [facility] Address [address] [place] [address] Care Team Providers Care Manager Industrial Name Role Phone Selvin Payan MD Primary Care Provider [phone] Allergies Active Allergy Reactions Criticality Noted Date [...] age to complete this topic Care Teams Manager Industrial Relationship Specialty Start Date End Date Selvin Payan MD [address] [place] [address] PCP - General Internal Medicine 03/08/18
--- NOTE | 2025-03-16 14:58 | MHC.OFFVISWM ---
VS Expanded 03/16/25 15:09 BP 145/65 H Blood Pressure Location Rt brachial Blood Pressure Position Sitting Pulse 49 L Pulse Source Pulse Oximeter Temp 98.0 F Temperature Source Temporal Artery Scan Pulse Oximetry 96 Oxygen Delivery Method Room Air Height 5 ft 3 in Weight 149 lb 9.6 oz BMI 26.5 Body Fat % 13.1 Body Fat Mass 19.6 Fat Free Mass 129.8 Visceral Fat Rating 10.0 Body Water % 64.5 Body Water Mass 96.4 Muscle Mass/Score 123.2 Basal Metabolic Rate/Score 1,659 Intake Visit Reasons: (OV) PO LSG 03/16/24 Box Gluer Required: No Allergies Penicillins Allergy (Verified 03/16/25 15:05) Shortness of Breath Medication List - Last Reconciled 03/16/25 by ELOISA Dias albuterol sulfate 90 mcg/actuation 2 puffs inhalation Q6H PRN atorvastatin 20 mg PO BEDTIME bupropion HCl XL 300 mg PO DAILY calcium carbonate-vitamin D3 600 mg-10 mcg (400 unit) (Calcium with Vitamin D) 1 tab PO BID clonidine HCl 0.1 mg PO BEDTIME cyanocobalamin (vitamin B-12) 1,000 mcg PO DAILY docusate sodium 100 mg PO BID PRN felodipine ER 10 mg PO DAILY finasteride 5 mg PO BEDTIME 90 days fluticasone propionate 50 mcg/actuation 1 spray intranasal DAILY gabapentin 300 mg PO TID lancets (OneTouch Delica Plus Lancet) As directed lisinopril 10 mg PO DAILY meclizine 25 mg PO TID PRN melatonin 5 mg PO BEDTIME methylphenidate HCl ER 36 mg PO QAM metoprolol succinate ER 25 mg PO DAILY metoprolol succinate ER 25 mg PO DAILY multivitamin 1 tab PO DAILY spironolactone 12.5 mg (1/2 x 25 mg) PO DAILY tadalafil 20 mg PO ONCE PRN 30 days terazosin 5 mg PO BEDTIME thiamine HCl (vitamin B1) 100 mg PO DAILY trazodone 200 mg PO BEDTIME HPI Comments Details: This?a?69?yo male who is s/p LSG without hiatal hernia repair on?03/16/2024. Presents for 1 year post op visit. Weight today is 149.6 pounds, with a BMI of 26.5. There has been a 82.2 pound weight loss,(initial weight 222.4 pounds) since starting the program on 12/21/2023 reflecting a 36.9 % total body weight loss and a weight loss of 50.3 pounds since surgery (operative weight 190.5 pounds) reflecting a 26.4 % TBWL since surgery. No complaints of nausea, emesis, abdominal pain or reflux. Reports infrequent but normal bowel movements every 2 days and uses stool softeners regularly. He states that things are going well. He has not been able to afford the shakes and is eating 3 meals per day. He is taking Certavit Sr antioxident MVI once daily. Present meal plan includes: 3 meals 4 forks protein and 4 forks veggies Drinking 48 oz fluids ? Exercise routine includes: 2-4 mile walk daily Any post op complications: none JOSEPH: resolved DM: resolved HTN: improved Hyperlipidemia: improved GERD:?0-5 scale ??0 = no symptoms ??1 = symptoms noticeable but not bothersome 2 =symptoms bothersome but not daily ? 3 = symptoms bothersome and daily 4 = symptoms affect daily activities 5 = symptoms are incapacitating, unable to do daily activities ? How bad is the heartburn: 0 ? Heartburn while lying down: 0 ? Heartburn when standing up: 0 ? Heartburn after meals: 0 ? Does heartburn change your diet: 0 ? Does heartburn wake you up from sleep: 0 ? Do you have difficulty swallowin ? Do you have pain with swallowin ? If you take medicine for your reflux, does this affect your daily life: 0 Satisfaction with present condition - satisfied or not satisfied: satisfied REPLACED BY [facility] Medical History Diabetes Atrial fibrillation Osteoarthritis DJD (degenerative joint disease) Von Recklinghausen disease GERD (gastroesophageal reflux disease) Anxiety Hyperlipidemia Insomnia Sleep apnea with use of continuous positive airway pressure (CPAP) Obesity Depression ADD (attention deficit disorder) Colon polyp Microscopic hematuria HTN (hypertension) AA (alcohol abuse) BPH (benign prostatic hyperplasia) Surgical History History of esophagogastroduodenoscopy (EGD) S/P laparoscopic sleeve gastrectomy Hx of tonsillectomy H/O bilateral inguinal hernia repair H/O umbilical hernia repair H/O colonoscopy Family History Mother Throat cancer Paternal Aunt Colon cancer Maternal Grandfather No problems noted. Social History Household Members: Family Housing: House Are you a primary wound care nurse to a significant other at home: No Do you presently have visiting nurse or other home services: No Alcohol intake: former Patient Tobacco Use Status: Former Tobacco user service: No Physical Exam Vital Signs: Last Vital Signs Temp 98.0 F 03/16/25 15:09 Pulse 49 L 03/16/25 15:09 BP 145/65 H 03/16/25 15:09 Pulse Ox 96 03/16/25 15:09 Oxygen Delivery Method Room Air 03/16/25 15:09 BMI result Body Mass Index 26.5 Const General: cooperative and no acute distress Orientation/consciousness: patient oriented x3 Resp Effort & Inspection: normal respiratory effort Auscultation: clear to auscultation bilaterally Cardio Rate: regular rate Rhythm: regular rhythm GI Inspection: Yes normal to inspection and Yes incision (well healed) Palpation (GI): Soft to palpation and no masses Neuro General: patient oriented x3 Assessment & Plan Assessment & Plan (1) S/P laparoscopic sleeve gastrectomy: Code(s): Z98.84 - Bariatric surgery status Category: Surgical Plan: Patient encouraged to increase his exercise. Discussed burning approximately 100 calories/mile walked. He will try to achieve a 4-5 mi per day walking schedule. We will check 1 year postop labs. Return to clinic 3 months. Orders: Orders Insulin Today E11.9 - Type 2 diabetes mellitus without complications, E78.5 - Hyperlipidemia, unspecified, E87.6 - Hypokalemia, I10 - Essential (primary) hypertension, Z98.84 - Bariatric surgery status Lipid Panel Today E11.9 - Type 2 diabetes mellitus without complications, E78.5 - Hyperlipidemia, unspecified, E87.6 - Hypokalemia, I10 - Essential (primary) hypertension, Z98.84 - Bariatric surgery status Comprehensive Met. Panel Today E11.9 - Type 2 diabetes mellitus without complications, E78.5 - Hyperlipidemia, unspecified, E87.6 - Hypokalemia, I10 - Essential (primary) hypertension, Z98.84 - Bariatric surgery status Zinc Today E11.9 - Type 2 diabetes mellitus without complications, E78.5 - Hyperlipidemia, unspecified, E87.6 - Hypokalemia, I10 - Essential (primary) hypertension, Z84 - Bariatric surgery status C Reactive Protein Today E11.9 - Type 2 diabetes mellitus without complications, E78.5 - Hyperlipidemia, unspecified, E87.6 - Hypokalemia, I10 - Essential (primary) hypertension, Z84 - Bariatric surgery status Vitamin B1 Today E11.9 - Type 2 diabetes mellitus without complications, E78.5 - Hyperlipidemia, unspecified, E87.6 - Hypokalemia, I10 - Essential (primary) hypertension, Z.84 - Bariatric surgery status Ferritin Today E11.9 - Type 2 diabetes mellitus without complications, E78.5 - Hyperlipidemia, unspecified, E87.6 - Hypokalemia, I10 - Essential (primary) hypertension, Z.84 - Bariatric surgery status Hemoglobin A1c Today E11.9 - Type 2 diabetes mellitus without complications, E78.5 - Hyperlipidemia, unspecified, E87.6 - Hypokalemia, I10 - Essential (primary) hypertension, Z.84 - Bariatric surgery status IRON PROFILE Today E11.9 - Type 2 diabetes mellitus without complications, E78.5 - Hyperlipidemia, unspecified, E87.6 - Hypokalemia, I10 - Essential (primary) hypertension, Z.84 - Bariatric surgery status Vitamin B12 and Folate Today E11.9 - Type 2 diabetes mellitus without complications, E78.5 - Hyperlipidemia, unspecified, E87.6 - Hypokalemia, I10 - Essential (primary) hypertension, Z.84 - Bariatric surgery status Vitamin A Today E11.9 - Type 2 diabetes mellitus without complications, E78.5 - Hyperlipidemia, unspecified, E87.6 - Hypokalemia, I10 - Essential (primary) hypertension, Z.84 - Bariatric surgery status Vitamin D 25-OH Total Today E11.9 - Type 2 diabetes mellitus without complications, E78.5 - Hyperlipidemia, unspecified, E87.6 - Hypokalemia, I10 - Essential (primary) hypertension, Z98.84 - Bariatric surgery status
[2025-03-16 15:09] VITALS: BP 145/65; PULSE 49; TEMP 36.7; O2SAT 96; BMI 26.5
== END 2025-03-16 15:31 | disposition home or self-care (01) ==
LOC: HO.HBS 14:43
PROVIDERS: PCP Internal Medicine; Visit Provider Physician Assistant Surgical
DX: E66.3 Overweight (principal); Z68.26 Body mass index [BMI] 26.0-26.9, adult; Z90.3 Acquired absence of stomach [part of]; Z98.84 Bariatric surgery status
CPT/HCPCS: 99213; G2211

== ENCOUNTER → 2025-03-16 14:43 | Outpatient (BNVA) | payer OTHER, SELFPAY | PROVIDERS: PCP Internal Medicine; Visit Provider Physician Assistant Surgical | DX: E11.9 Type 2 diabetes mellitus without complications (principal); E78.5 Hyperlipidemia, unspecified; E87.6 Hypokalemia; I10 Essential (primary) hypertension; Z98.84 Bariatric surgery status | CPT/HCPCS: 99212 ==

== ENCOUNTER 2025-03-20 09:56 | Outpatient (AMB) | payer OTHER, SELFPAY ==
--- NOTE | 2025-03-20 09:59 | A.OFFVIS_ITS ---
Vital Signs 03/20/25 10:10 Height 5 ft 3 in Weight 159 lb BMI 28.2 BP 166/71 H Blood Pressure Location Lt brachial Position Sitting Pulse 81 Intake Visit Reasons: abd hernia without obstruction or gangrene Intake Note: Patient is seen in office for evaluation of an abdominal hernia. Pt c/o: feels a lump near the belly button, had this repaired 7 yrs ago @ [facility] in [place], recently came back, admits to constipation, straining, denies n/v/d us:02/22/25 Crop Quantitative Geneticist Required: No Accompanied by: Self / Same As Patient Allergies Penicillins Allergy (Verified 03/16/25 15:05) Shortness of Breath Medication List - Last Reconciled 03/20/25 by Dane Vazquez MD albuterol sulfate 90 mcg/actuation 2 puffs inhalation Q6H PRN atorvastatin 20 mg PO BEDTIME bupropion HCl XL 300 mg PO DAILY calcium carbonate-vitamin D3 600 mg-10 mcg (400 unit) (Calcium with Vitamin D) 1 tab PO BID clonidine HCl 0.1 mg PO BEDTIME cyanocobalamin (vitamin B-12) 1,000 mcg PO DAILY docusate sodium 100 mg PO BID PRN felodipine ER 10 mg PO DAILY finasteride 5 mg PO BEDTIME 90 days fluticasone propionate 50 mcg/actuation 1 spray intranasal DAILY gabapentin 300 mg PO TID lancets (OneTouch Delica Plus Lancet) As directed lisinopril 10 mg PO DAILY meclizine 25 mg PO TID PRN melatonin 5 mg PO BEDTIME methylphenidate HCl ER 36 mg PO QAM metoprolol succinate ER 25 mg PO DAILY metoprolol succinate ER 25 mg PO DAILY multivitamin 1 tab PO DAILY spironolactone 12.5 mg (1/2 x 25 mg) PO DAILY tadalafil 20 mg PO ONCE PRN 30 days terazosin 5 mg PO BEDTIME thiamine HCl (vitamin B1) 100 mg PO DAILY trazodone 200 mg PO BEDTIME HPI Comments Details: 70-year-old male patient presenting with a previous history of umbilical hernia repair with mesh approximately 7 years ago now presenting with a new firm deep- seated nodule over the umbilicus noted on self-examination. He denies any pain, skin change, nausea, vomiting, or bowel changes associated with this new lump. The lump was 1st identified approximately 2 months ago and since that time no significant changes were identified. He subsequently underwent examination with an ultrasound of the abdomen which confirmed a small supraumbilical ventral hernia containing omentum which did not self reduce. He presents today to discuss treatment options for this hernia. [facility] Medical History Diabetes Atrial fibrillation Osteoarthritis DJD (degenerative joint disease) Von Recklinghausen disease GERD (gastroesophageal reflux disease) Anxiety Hyperlipidemia Insomnia Sleep apnea with use of continuous positive airway pressure (CPAP) Obesity Depression ADD (attention deficit disorder) Colon polyp Microscopic hematuria HTN (hypertension) AA (alcohol abuse) BPH (benign prostatic hyperplasia) Surgical History History of esophagogastroduodenoscopy (EGD) S/P laparoscopic sleeve gastrectomy Hx of tonsillectomy H/O bilateral inguinal hernia repair H/O umbilical hernia repair H/O colonoscopy Family History Mother Throat cancer Paternal Aunt Colon cancer Maternal Grandfather No problems noted. Social History Household Members: Family Housing: House Are you a primary hemodialysis patient care specialist to a significant other at home: No Do you presently have visiting nurse or other home services: No Alcohol intake: former Patient Tobacco Use Status: Former Tobacco user service: No Review of Systems Const All systems reviewed & are unremarkable except as noted in HPI and below Physical Exam Const General: comfortable and no acute distress Nutritional Appearance: well nourished Orientation/consciousness: patient oriented x3 Limitations: ambulation with cane HEENT Head: Yes normocephalic and Yes atraumatic Resp Effort & Inspection: normal respiratory effort, no audible wheezes, no cough and no respiratory distress GI Other: Soft, nondistended, well-healed a periumbilical incision. Small palpable nodule located above the umbilicus which does not changed significantly with Valsalva maneuvers and does not reduce with light pressure. Skin Other: Multiple neurofibromatosis noted Neuro General: patient oriented x3 Extrem General: Yes no clubbing, cyanosis or edema Assessment & Plan Assessment & Plan (1) Incisional hernia: Code(s): K43.2 - Incisional hernia without obstruction or gangrene Category: Medical Qualifiers: Obstruction and gangrene presence: without obstruction or gangrene Qualified Code(s): K43.2 - Incisional hernia without obstruction or gangrene Plan 70-year-old male patient presenting with a recurrent hernia near the umbilicus following repair approximately 7 years ago. On examination there is a very small nodule corresponding to the ultrasound findings. The defect is not changed significantly with Valsalva maneuvers nor does not reduce. He has absolutely no discomfort with palpation and no current abdominal symptoms. We discussed repair of this small hernia verses observation. After discussion of the relative risks and benefits I have suggested observation for now. We discussed the symptoms to be aware of which would necessitate re-examination and possible repair. He expressed understanding and agrees with the plan. Coding Level of Care Code New Pt Level 4 (35671) Diagnoses Incisional hernia, without obstruction or gangrene K43.2 Obstruction and gangrene presence: without obstruction or gangrene
[2025-03-20 10:10] VITALS: BP 166/71; PULSE 81; BMI 28.2
--- OUTSIDE RECORDS SUMMARY | 2025-03-20 11:12 | XMS_ITS | Clinical Summary ---
Author Organization [facility] Address [address] [place] [address] Care Team Providers Care Leak Gang Supervisor Name Role Phone Selvin Payan MD Primary Care Provider [phone] Allergies Active Allergy Reactions Criticality Noted Date [...] age to complete this topic Care Teams Leak Gang Supervisor Relationship Specialty Start Date End Date Selvin Payan MD [address] [place] [address] PCP - General Internal Medicine 03/08/18
--- OUTSIDE RECORDS SUMMARY | 2025-03-20 11:12 | XMS_ITS | Clinical Summary ---
Author Organization [facility] Address [address] [place] [address] 7 [place] [address] Care Team Providers Care Fruit Or Nut Farmer Name Role Phone Brittany Saldana MD Primary [...] TAKE 1 TABLET BY MOUTH ONCE DAILY 2 Active Lancets 28G miscIndications:C ontrolled type 2 diabetes mellitus without complication, without long-term current use of insulin ([facility]) Use 1 lancet to monitor blood glucose twice daily 100 each 3 Active ARIPiprazole (Abilify) 2 MG tablet Take 1 tablet (2 mg) by mouth Once per day. 90 tablet 3 4 Active buPROPion XL (Wellbutrin XL) 300 MG 24 hr tablet Take 1 tablet (300 mg) by mouth in the morning. 90 tablet 3 4 Active thiamine (Vitamin B-1) 100 MG tablet 1 tab po/d 30 tablet 11 4 Active cyanocobalamin (Vitamin B-12) 1000 MCG tablet TAKE 1 TABLET BY MOUTH EVERY MORNING 30 tablet 4 Active docusate sodium (Colace) 100 MG capsuleIndication s:Constipation, unspecified constipation type Take 1 capsule (100 mg) by mouth 2 times daily. TAKE 1 CAPSULE BY MOUTH TWICE DAILY NEEDED 180 capsule 2 4 Active cloNIDine (Catapres) 0.1 MG tabletIndications :PTSD (post-traumatic stress disorder) TAKE 1 TABLET BY MOUTH AT BEDTIME 90 tablet 3 4 Active meclizine (Antivert) 25 MG tabletIndications :Vertigo TAKE 1 TABLET BY MOUTH THREE TIMES DAILY IN THE MORNING, AT NOON, AND AT BEDTIME NEEDED FOR DIZZINESS 90 tablet 4 Active polyethylene glycol, PEG, 3350 (MiraLax) 17 GM/SCOOP powder Take 17 g by mouth if needed each day (constipation >1d). 527 g 11 4 08/11/20 25 Active glucose blood (FITiSTuch Ultra) test stripIndications: Type 2 diabetes mellitus without complication, without long-term current use of insulin (CMS/HCC) TEST BLOOD SUGAR TWICE DAILY 100 strip 11 4 Active Multiple Vitamins-Minerals (CertaVite/Antiox idants) tabletIndications :Essential (primary) hypertension Take 1 tablet by mouth in the morning. 30 tablet 11 4 Active atorvastatin (Lipitor) 20 MG tablet TAKE ONE TABLET BY MOUTH AT BEDTIME (FOR CHOLESTEROL) 30 tablet 11 5 Active gabapentin (Neurontin) 300 MG capsuleIndication s:Type 2 diabetes mellitus without complication, without long-term current use of insulin (CMS/HCC) TAKE ONE CAPSULE BY MOUTH EVERY MORNING, AT NOON AND AT BEDTIME 90 capsule 11 5 Active traZODone (Desyrel) 100 MG tabletIndications :Depression, unspecified depression type TAKE TWO TABLETS BY MOUTH AT BEDTIME 60 tablet 11 5 Active albuterol 108 (90 Base) MCG/ACT inhalerIndication s:Mild intermittent asthma without complication INHALE 2 PUFFS EVERY 4 TO 6 HOURS NEEDED 8.5 g 11 5 Active lisinopril 10 MG tabletIndications :Primary hypertension Take 1 tablet (10 mg) by mouth Once per day. 30 tablet 11 5 01/23/20 26 Active methylphenidate ER (Concerta) 36 MG CR tablet TAKE 1 TABLET BY MOUTH EVERY DAY IN THE MORNING DO NOT BREAK, CRUSH, DISSOLVE OR CHEW 30 tablet 5 Active fluticasone (Flonase) 50 MCG/ACT nasal sprayIndications: Chronic rhinitis USE 1-2 SPRAYS EACH NOSTRIL ONCE DAILY NEEDED 16 g 3 5 Active melatonin 5 MG tabletIndications :Acute insomnia TAKE ONE TABLET BY MOUTH AT BEDTIME 30 tablet 3 5 Active predniSONE (Deltasone) 20 MG tabletIndications :Sudden right hearing loss Take 1 tablet (20 mg) by mouth Once per day for 10 days. 10 tablet 5 03/03/20 25 Active Problems Problem Noted Date Diagnosed Date [...] AM EDT): - [place] [facility] [place] management [...] exercise, life style modifications, diet, referral to data warehouse specialist. Discussed re lower calorie intake, increase dietary fiber Pt insisted on wt reduction program, [facility] [place] today Chronic fatigue 06/03/2023 Assessment [...] and fu with . Order TSH/testosterone levels, psychologist experimental input appreciated. Iliopsoas bursitis of left hip [...] IZs -RSV pending not available today in [facility] pharmacy Advise to have it at [...] management. For any issues or concerns contact [facility]. Continue with therapist as usual. I [...] he he was not contacted yet, per rating specialist, [employer] contact him on 05/11/23 at 9:47 am, but he didn't responded, vm was left. I provide him with [employer] information for him to follow up, he agreed. Provided education around integrated medicine and the options of follow up BE's as needed. Provided contact information should questions or concerns arise. Plan: Narendra will engage in effective coping mechanisms provided at least 1 per day for 6 months. He will be Contacting [employer] for him to engage in Ind. Therapy [...] BP records next week and drop at hotel front desk agent for me to review. [...] Encounters Date Type Department Care Team Description 03/19/2025 Refill [facility] [address] [facility] [place] [phone] Brittany Saldana MD 03/16/2025 Travel 03/13/2025 Telephone [facility] CHC MED & PEDS [address] [place], [place] [phone] Brittany Saldana MD 03/09/2025 Travel 03/07/2025 10:30 AM EDT Clinical Support [facility] [address] [facility] [place] [address] Janae Walden, RN Alcohol use disorder, severe, in sustained remission ([facility]) 03/07/2025 Travel 03/06/2025 Patient Outreach [facility] MEDICINE [address] [place] [address] Jose Chang Recovery Supports 03/01/2025 Telephone [facility] [place] [place] [phone] Brittany Saldana MD Appointment Request 02/28/2025 Orders Only [facility] [address] [facility] [place] [phone] Brittany Saldana MD Sudden right hearing loss (Primary Dx) 02/27/2025 Patient Outreach [facility] [place] [phone] Ted Olvera Recovery Supports 02/26/2025 Telephone [facility] [address] [facility] [place] [address] Brittany Saldana MD Results 02/26/2025 Orders Only [facility] WALK-IN CENTER [address] [place], [place] [phone] Patrick, Alexus, AUTOMOTIVE EXHAUST EMISSIONS TECHNICIAN Other specified abdominal hernia without obstruction or gangrene (Primary Dx) 02/21/2025 10:45 AM EDT Office Visit [facility] [address] [place], [place] [phone] Xiao Hunter NP Sudden right hearing loss (Primary Dx); Elevated blood pressure reading in office with diagnosis of hypertension 02/21/2025 Travel 02/20/2025 Patient Outreach [facility] [address] [place], [place] [phone] Jose Chang Recovery Supports 02/20/2025 Telephone [facility] [address] [place], [place] [phone] Brittany Saldana MD Durable Medical Equipment (DME Order: Compression Stockings) 02/20/[address] [phone] Brittany Saldana MD 02/20/[address] [phone] Brittany Saldana MD Nurse Triage 02/14/2025 9:00 AM EDT Office Visit [address] [phone] Migue Stephens MD Alcohol use disorder, severe, in sustained remission (CMS/HCC) (Primary Dx) 02/14/2025 Travel 02/12/2025 Refill [facility] MEDICINE [address] [place] [address] Brittany Saldana MD Chronic rhinitis; Acute insomnia 02/12/2025 Refill [facility] MED & PEDS [address] [place], [place] [phone] Brittany Saldana MD 02/07/2025 10:30 AM EDT Office Visit [address] [phone] Migue Stephens MD Alcohol use disorder, severe, in sustained remission (CMS/HCC) (Primary Dx) 02/07/2025 Travel 02/06/2025 Patient Outreach [address] [phone] Jose Chang Recovery Supports 01/30/2025 1:15 PM EDT Office Visit [facility] [place] [address] Brandon Caballero MD Alcohol use disorder, severe, in sustained remission (CMS/HCC) (Primary Dx) 01/30/2025 Patient Outreach [facility] [place] [address] Jose Chang Recovery Supports 01/30/2025 Travel 01/24/2025 10:30 AM EDT Office Visit [facility] [address] [place] [address] Migue Stephens MD Alcohol use disorder, severe, in sustained remission (CMS/HCC) (Primary Dx) 01/24/2025 Travel 01/23/2025 Patient Outreach [facility] [place] [address] Jose Chang Recovery Supports 01/23/2025 Travel 01/22/2025 11:30 AM EDT Office Visit [facility] [place] [address] [place], [place], [facility] Nodule of skin of abdomen (Primary Dx); Primary hypertension 01/22/2025 Travel 01/20/2025 Travel 2025 Refill [facility] [place] [address] Brittany Saldana MD Mild intermittent asthma without complication 2025 Telephone [facility] [place] [address] Brittany Saldana MD Nurse Triage 01/17/2025 10:00 AM EST Office Visit [facility] [place] [address] Migue Stephens MD Alcohol use disorder, severe, in sustained remission (CMS/HCC) (Primary Dx) 01/17/2025 Telephone [facility] [place] [place] [address] Brittany Saldana MD 01/17/2025 Patient Outreach [facility] [place] [address] Jose Chang Recovery Supports 01/17/2025 Travel 01/16/2025 Patient Outreach [facility] [address] [place] [address] Jose Chang Recovery Supports 01/11/2025 Telephone [facility] [address] [facility] [place] [address] Brittany Saldana MD Appointment Request 01/09/2025 Refill [facility] MEDICINE [address] [place] [address] Brittany Saldana MD 01/09/2025 Patient Outreach [facility] [address] [place] [address] Rolando Amos Recovery Supports 01/08/2025 Refill [facility] MEDICINE [address] [place] [address] Brittany Saldana MD 01/04/[address] [address] Brittany Saldana MD May recall 12/27/2024 10:30 AM EST Office Visit [address] [place] [address] Migue Stephens MD Alcohol use disorder, severe, in sustained remission (CMS/HCC) (Primary Dx) 12/27/2024 Travel 12/26/2024 Patient Outreach [facility] [place] [address] Otero, Cristian 12/22/2024 4:00 PM EST Office Visit [address] [address] Eb Merino MD Hemangioma of skin (Primary Dx); Neurofibromatosis (nonmalignant) (CMS/HCC) 12/22/2024 Travel 12/21/2024 Travel from Last 3 Months Immunizations Name [...] Description 03/20/2025 1:15 PM EDT Office Visit [facility] MEDICINE [address] [place] [address] Brandon Caballero MD [address] [place] [address] 03/23/2025 12:00 PM EDT Office Visit [facility] MEDICINE [address] [place] [address] Brittany Saldana MD [address] [place] [address] 04/12/2025 11:45 AM EDT Office Visit [address] [address] Brittany Saldana MD [address] [place] [address] Health Maintenance Due Date Last Done Comments [...] EDT Narrative 02/28/2025 12:13 PM EDT ? [facility] ?[address] ?[place] [address] ? Magnetic Resonance Report ? Signed ? Patient: Dane Calles ?MR#: [id number] ?? 89 ? : 1955 ?Acct:[id number] ? Age/Sex: 70 / M ?ADM Date: 02/28/25 ? Loc: HO.MRI ? Attending Dr: Xiao Hunter ? Ordering Physician: Xiao Hunter ?? Date of Service: 02/28/25 ?? Procedure(s): MR head/brain wo/w con ?? Accession Number(s): [id number] ? cc: Xiao Hunter; Brittany Saldana MD [...] Caruso MD ??02/28/2025 12:10 PM ?? EDT RP ? Dictated By: ?Misael Peterson MD ? Signed By: ?<Electronically signed by Misael Serna MD in OV> ? 02/28/25 1210 ? DD/ 1045 ? TD/TT: 02/28/25 1120 ? Gear Lapper: ? Procedure Note Lior, Image - 02/28/2025 [place] [address] Magnetic Resonance Report Signed Patient: Dane Calles JMR#: [id number] [birth year] : 7Acct:[id number] Age/Sex: 70 / MADM Date: 02/28/25 Loc: HO.MRI Attending Dr: Xiao Hunter Ordering Physician: Xiao Hunter Date of Service: 02/28/25 Procedure(s): MR head/brain wo/w con Accession Number(s): [id number] cc: Xiao Hunter; Brittany Saldana MD EXAMINATION: [...] Misael Caruso MD 02/28/2025 12:10 PM EDT RP Dictated By: Misael Peterson MD Signed By: <Electronically signed by Misael Serna MDin OV> 02/28/25 1210 DD/ 1045 TD/TT: 02/28/25 1120 Gear Lapper: us Xiao Appram BILL BOARD POSTER IMG MRI PROCEDURES Final Result * US Abdomen Limited (02/22/2025 11:10 AM EDT) Anatomical Region Laterality Modality Abdomen Ultrasound 02/22/2025 11:1 0 AM EDT Narrative 02/22/2025 11:12 AM EDT ? [facility] ?[address] ?[place] [address] ? Ultrasound Report ? Signed ? Patient: Dane Calles ?MR#: [id number] ?? [birth year] ? : 1955 ?Acct:[id number] ? Age/Sex: 70 / M ?ADM Date: 02/22/25 ? Loc: HO.US ? Attending Dr: Alexus Nguyen AUTOMOTIVE EXHAUST EMISSIONS TECHNICIAN ? Ordering Physician: Alexus Nguyen AUTOMOTIVE EXHAUST EMISSIONS TECHNICIAN ?? Date of Service: 02/22/25 ?? Procedure(s): US abdomen limited ?? Accession Number(s): [id number] ? cc: Brittany Saldana MD; Alexus Nguyen AUTOMOTIVE EXHAUST EMISSIONS TECHNICIAN ? CLINICAL HISTORY: hx of umbilical hernia [...] DD/ 1110 ? TD/TT: 02/22/25 1110 ? Gear Lapper: ? Procedure Note Donrebeccater, Image - 02/22/2025 [place] [address] Ultrasound Report Signed Patient: Dane Calles JMR#: [id number] [birth year] : 7Acct:[id number] Age/Sex: 70 / MADM Date: 02/22/25 Loc: HO.US Attending Dr: Alexus ZAFAR Ordering Physician: Alexus Nguyen Date of Service: 02/22/25 Procedure(s): US abdomen limited Accession Number(s): [id number] cc: Brittany Saldana MD; Alexus Nguyen CLINICAL [...] 02/22/25 1111 DD/ 1110 TD/TT: 02/22/25 1110 Gear Lapper: [facility] AUTOMOTIVE EXHAUST EMISSIONS TECHNICIAN IMG US PROCEDURES Final Resul t * Lyme Disease Ab with Reflex to Blot (IgG, IgM) (02/21/2025 11:24 AM EDT) [facility] Lyme Antibody Screen <0.90 index [facility] Comment:Index Interpretation ----- < 0.90 Negative [...] when erythemamigrans is apparent.THIS TEST WAS PERFORMED AT:[facility] [place] [id number] ZHAO MD Lyme Blot TNP [facility] 02/21/2025 11:2 4 AM EDT 02/21/2025 1:35 PM EDT Xiao Hunter NP LAB BLOOD ORDERABLES Final Resu lt [facility] [address] [place] [phone] * (ABNORMAL) CBC auto differential (02/21/2025 11:24 AM EDT) [facility] White Blood Count 6.9 4.8 - 10.8 X10*3/uL [facility] Red Blood Count 3.97(L) 4.60 - 5.80 X10*6/uL [facility] Hemoglobin 12.3(L) 14.0 - 18.0 g/dl [facility] Hematocrit 36.7(L) 42.0 - 52.0 % [facility] Mean Corpuscular Volume 92.4 80.0 - 98.0 fL [facility] Mean Corpuscular Hemoglobin 31.0 27.0 - 33.0 pg [facility] Mean Corpuscular HGB Conc 33.5 31.0 - 36.0 g/dl [facility] Red Cell Distribution Width 13.6 11.0 - 16.0 % [facility] Platelet Count 180 160 - 400 X10*3/uL [facility] Mean Platelet Volume 10.9 9.4 - 12.4 fL [facility] Neutrophils Percent Auto 65.6 45 - 73 % [facility] Imm Gran Pct Auto 0.4 0.0 - 0.4 % [facility] Lymphocytes Percent Auto 21.0 20 - 40 % [facility] Monocytes Percent Auto 11.3(H) 2 - 11 % [facility] Eosinophils Percent Auto 1.3 0 - 4 % [facility] Basophils Percent Auto 0.4 0 - 2 % [facility] NRBC Pct Auto 0.0 0.0 - 0.2 /100WBC [facility] Neutrophils Absolute Auto 4.5 2.0 - 8.3 x10*3/uL [facility] Imm Gran Abs Auto 0.03 0.00 - 0.03 X10*3/uL [facility] Lymphocytes Absolute Auto 1.5 1.2 - 4.9 X10*3/uL [facility] Monocytes Absolute Auto 0.8 0.1 - 1.2 X10*3/uL [facility] Eosinophils Absolute Auto 0.1 0.0 - 0.4 X10*3/uL [facility] Basophils Absolute Auto 0.0 0.0 - 0.2 X10*3/uL [facility] NRBC Abs Auto 0.000 0.0 - 0.012 X10*3/uL [facility] Blood Venous blood specimen / Unknown 02/21/2025 11:24 AM EDT 02/21/2025 1:[address] [facility] BILL BOARD POSTER LAB BLOOD ORDERABLES Final Resu lt Performing Organization Address [facility]/ZIP Co de Phone Number [facility] [address] [place] [address] [phone] * RPR (Monitor) with Reflex to??Titer (02/21/2025 11:24 AM EDT) RPR (Monitor) w/Refl Titer NON-REACTI VE NON-REACT JAMES [facility] Comment:THIS TEST WAS PERFOR MED AT:[facility] [place] [id number] ZHAO MD Rapid Plasma Reagin Ab Titer TNP [facility] Blood Venous blood specimen / Unknown 02/21/2025 11:24 AM EDT 02/21/2025 1:[address] [facility] BILL BOARD POSTER LAB BLOOD ORDERABLES Final Resu lt Performing Organization Address [facility] Co de Phone Number [facility] [address] [place] [phone] * HIV-1/2 Antigen and Antibodies, Fourth Generation, with Reflexes (02/21/2025 11:24 AM EDT) HIV AB/AG Nonreactive Nonreactive [facility] Comment:HIV-1 p24 Ag and/or HIV-1/HIV-2 Ab not detected.A test result that is nonreactive does not exclude thepossibility of exposure to or infection with HIV-1 and/orHIV-2. Nonreactive results in this assay for individualswith prior exposure to HIV-1 and/or HIV-2 may be due toantigen and antibody levels that are below the limit ofdetection of this assay.The [employer] HIV Ag/Ab Combo assay result andsupplemental assay results should be interpreted inconjunction with the patient's clinical presentation,history and other laboratory results. If the results areinconsistent with clinical evidence, additional testing issuggested to confirm the result. Blood Venous blood specimen / Unknown 02/21/2025 11:24 AM EDT 02/21/2025 1:35 PM EDT us Xiao Hunter NP LAB BLOOD ORDERABLES Final Resu lt Performing Organization Address [facility] Co de Phone Number [facility] [address] [place] [address] [phone] * POCT HGB A1C (12/07/2024 11:19 AM EST) Hemoglobin A1C 5.1 4.0 - 6.0 % Blood 12/07/2024 11:1 9 AM EST Brittany Saldana MD POINT OF CARE TEST ENTER /EDIT ORDERABLES Final Result * (ABNORMAL) Hm Colonoscopy (09/19/2024) Colonoscopy Normal Normal [facility] Comment:poor prep Brittany Saldana MD HEALTH MAINTENANCE Final Result Performing Organization Address [facility] de Phone Number [facility] [address] [place] [address] [phone] * Albumin, Random Urine W/Creatinine (05/02/2024 1:17 PM EDT) Creatinine, Urine 51.26 mg/dL [facility] Microalbumin Urine 7.0 mg/L [facility] Microalbum Creatinine Ratio Ur 13.6 <30 ug/mg cr [facility] Comment:Albumin/Creatinine R atio Reference Ranges: Normal: < 30 ug/mg creatinine Microalbuminuria: 30 - 300 ug/mg creatinineClinical Albuminuria: > 300 ug/mg creatinine 05/02/2024 1:17 PM EDT 05/02/2024 3:54 PM EDT us Brittany Saldana MD LAB URINE ORDERABLES Fin al Result Performing Organization Address City/[facility]/ZIP Co de Phone Number [facility] [address] [place] [address] [phone] * (ABNORMAL) Lipid Panel, Standard (12/28/2023 9:54 AM EST) Triglycerides 71 <150 mg/dL [facility] Comment:Desirable Triglyceri de: less than 150 mg/dLBorderline High Triglyceride 150-199 mg/dLHigh Triglyceride: 200-499 mg/dLVery High Triglyceride: greater than or equal to 5OO mg/dL Cholesterol 115 <200 mg/dL [facility] Comment:Desirable Cholestero l: less than 200 mg/dLBorderline High Cholesterol: 200-239 mg/dLHigh Cholesterol: greater than 239 mg/dL LDL Cholesterol Calculated 68 <100 mg/dL [facility] Comment:Desirable LDL: less than 100 mg/dLNear Optimal/Above Optimal LDL: 110- 129 mg/dLBorderline High LDL: 130-159 mg/dLHigh LDL: 160-189 mg/dLVery High LDL: greater than or equal to 190 mg/dL HDL Cholesterol 33(L) >40 mg/dL [facility] Comment:Desirable HDL: great er than 40 mg/dL Note: This HDL assay may give artificially low results in patients with liver disease. 12/28/2023 9:54 AM EST 12/28/2023 9:54 AM EST us Generic External Data Provider LAB BLOOD ORDERAB LES Final Result [facility] [address] [place] [address] [phone] * HEPATITIS C AB W/REFL TO HCV RNA, QN, PCR (12/09/2021 11:13 AM EST) HEPATITIS C ANTIBODY NON-REACT JAMES NON-REACT JAMES [facility] INDEX 0.03 <1.00 [facility] Comment: ?? HCV antibody was non-reactive. There is no laboratory ?? evidence of HCV infection. ?? In most cases, no further action is required. However, if recent HCV exposure is suspected, a test for HCV RNA (test code 04827) is suggested. ?? For additional information please refer to http://[email or web address]/faq/DDG51q2 (This link is being provided for informational/ educational purposes only.) ?? 12/09/2021 11:1 3 AM EST us Lulu Garcia ANP HISTORICAL/NON ORDERABLE LABS Fi nal Result [facility] [address] from Last 3 Months or Most Recently Relevant to Health Maintenance Insurance [facility] HOME OPTIONS (HMO D-SNP) [facility] STANDARD Care Teams Fruit Or Nut Farmer Relationship Specialty Start Date End Date Brittany Saldana MD [address] [place] [phone] PCP - General Family Medicine 05/08/20 Darrin Hernandez FNP [address] [place] [phone] Nurse Practitioner Family Medicine 10/19/23
--- OUTSIDE RECORDS SUMMARY | 2025-03-20 11:12 | XMS_ITS | Encounter Summary ---
Author Organization [employer] Address [address] [place] [address] 7 [place] [address] Care Team Providers Care Freight Car Loader Name Role Phone Brittany Saldana MD Primary Care Provider + Darrin Hernandez Unavailable Unavailable Reason for Visit * Reason Onset Date Comments Med Refill 07/23/2024 Encounter Details Date Type Department Care Team (Late st Contact Info) Description 07/23/2024 Refill [facility] MED[facility]INE 230 [place] [address] [facility] 230 [place] [address] Depression, unspecified depression type Social History Tobacco [...] Description 03/20/2025 1:15 PM EDT Office Visit [address] [address] Brandon Caballero MD [address] [place] [address] 03/23/2025 12:00 PM EDT Office Visit [address] [address] Brittany Saldana MD [address] [place] [address] 04/12/2025 11:45 AM EDT Office Visit [address] [address] Brittany Saldana MD [address] [place] [address] documented as of this encounter Goals Goal [...] documented as of this encounter Care Teams Freight Car Loader Relationship Specialty Start Date End Date Brittany Saldana MD 230 [place] [address] PCP - General Family Medicine 05/08/20 Darrin Hernandez FNP [address] [place] [address] Nurse Practitioner Family Medicine 10/19/23 documented as of this encounter
--- OUTSIDE RECORDS SUMMARY | 2025-03-20 11:12 | XMS_ITS | Encounter Summary ---
Author Organization [employer] Address [address] [place] [address] 7 [place] [address] Care Team Providers Care Outside Machinist Supervisor Name Role Phone Brittany Saldana MD Primary Care Provider + Darrin Hernandez Unavailable Unavailable Reason for Visit * Reason Onset Date Comments Med Refill 04/16/2024 Encounter Details Date Type Department Care Team (Late st Contact Info) Description 04/16/2024 Refill [facility] 230 [place] [address] Darrin Hernandez FNP PTSD (post-traumatic stress disorder) [...] Description 03/20/2025 1:15 PM EDT Office Visit [address] [address] Brandon Caballero MD [address] [place] [address] 03/23/2025 12:00 PM EDT Office Visit [address] [address] Brittany Saldana MD [address] [place] [address] 04/12/2025 11:45 AM EDT Office Visit [address] [address] Brittany Saldana MD [address] [place] [address] [phone] documented as of this encounter Goals Goal [...] as of this encounter Care Teams Outside Machinist Supervisor Relationship Specialty Start Date End Date Brittany Saldana MD 230 [place] [address] PCP - General Family Medicine 05/08/20 Darrin Hernandez FNP [address] [place] [address] Nurse Practitioner Family Medicine 10/19/23 documented as of this encounter
--- OUTSIDE RECORDS SUMMARY | 2025-03-20 11:12 | XMS_ITS | Encounter Summary ---
Author Organization [employer] Address [address] [place] [address] 7 [place] [address] Care Team Providers Care Relay Record Clerk Name Role Phone Brittany Saldana MD Primary Care Provider + Darrin Hernandez Unavailable Unavailable Reason for Visit * Reason Onset Date Comments r/s appt 12/24/2022 Encounter Details Date Type Department Care Team (Late st Contact Info) Description 12/24/[address] [facility] MEDICINE 230 [place] [address] Brittany Saldana MD 230 [place] [address] r/s appt Social History Tobacco Use Types [...] states his ride was not there ontime. Butter Maker tried booking but December [employer] was full. Please contact pt at [phone] documented in this encounter Plan of Treatment Upcoming Encounters Date Type Department Care Team (Late st Contact Info) Description 03/20/2025 1:15 PM EDT Office [address] [facility] MEDICINE [address] [place] [address] Brandon Caballero MD [address] [place] [address] 03/23/2025 12:00 PM EDT Office Visit [address] [address] Brittany Saldana MD [address] [place] [address] 04/12/2025 11:45 AM EDT Office Visit [address] [address] Brittany Saldana MD [address] [place] [address] documented as of this encounter Visit Diagnoses Not on filedocumented in this encounter Additional Health Concerns Assessment Noted Time PHQ-9 Depression Total Score: 9 11/05/20 22 9:37 AM EST documented as of this encounter Care Teams Relay Record Clerk Relationship Specialty Start Date End Date Brittany Saldana MD [address] [place] [address] PCP - General Family Medicine 05/08/20 Darrin Hernandez FNP [address] [place] [address] [place] [address] Nurse Practitioner Family Medicine 10/19/23 documented as of this encounter
--- OUTSIDE RECORDS SUMMARY | 2025-03-20 11:12 | XMS_ITS | Encounter Summary ---
Author Organization [id number] Address [address] [place] [address] 7 [place] [address] Care Team Providers Care Wired Sweatband Cutter Name Role Phone Brittany Saldana MD Primary Care Provider + Darrin Hernandez Unavailable Unavailable Encounter Details Date Type Department Care Team (Latest Contact Info) Description 08/07/2022 Abstract [facility] CONVERSIONS Dental, Provider, DDS Social [...] Description 03/20/2025 1:15 PM EDT Office Visit [facility] MEDICINE [address] [place] [address] Brandon Caballero MD [address] [place] [address] 03/23/2025 12:00 PM EDT Office Visit [facility] MEDICINE [address] [place] [address] Brittany Saldana MD [address] [place] [address] 04/12/2025 11:45 AM EDT Office Visit [facility] MEDICINE 230 [place], [place] [phone] Brittany Saldana MD 230 [place] [address] documented as of this encounter Visit Diagnoses Not on filedocumented in this encounter Care Teams Wired Sweatband Cutter Relationship Specialty Start Date End Date Brittany Saldana MD [address] [place] [address] [phone] PCP - General Family Medicine 05/08/20 Darrin Hernandez FNP [address] [place] [address] Nurse Practitioner Family Medicine 10/19/23 documented as of this encounter
--- OUTSIDE RECORDS SUMMARY | 2025-03-20 11:12 | XMS_ITS | Encounter Summary ---
Author Organization [employer] Address [address] [place] [address] 7t [place] [address] Care Team Providers Care Continuous Pickling Line Pickler Helper Name Role Phone Brittany Saldana MD Primary Care Provider + Darrin Hernandez Unavailable Unavailable Reason for Visit * Reason Onset Date Comments Durable Medical Equipment 01/05/2023 Encounter Details Date Type Department Care Team (Late st Contact Info) Description 01/05/2023 Telephone [facility] MEDICINE 230 [place] [address] Brittany Saldana MD 230 [place] [address] Durable Medical Equipment Social History Tobacco Use [...] If any questions please contact pt at [phone] documented in this encounter Plan of Treatment Upcoming Encounters Date Type Department Care Team (Late st Contact Info) Description 03/20/2025 1:15 PM EDT Office Visit [facility] MEDICINE [address] [place] [address] Brandon Caballero MD [address] [place] [address] 03/23/2025 12:00 PM EDT Office Visit [address] [address] Brittany Saldana MD [address] [place] [address] 04/12/2025 11:45 AM EDT Office Visit [address] [address] Brittany Saldana MD [address] [place] [address] documented as of this encounter Visit Diagnoses Not on filedocumented in this encounter Additional Health Concerns Assessment Noted Time PHQ-9 Depression Total Score: 4 12/31/19 23 10:56 AM EST documented as of this encounter Care Teams Continuous Pickling Line Pickler Helper Relationship Specialty Start Date End Date Brittany Saldana MD [address] [place] [address] PCP - General Family Medicine 05/08/20 Darrin Hernandez FNP [address] [place] [address] ERWIN Angulo [address] Nurse Practitioner Family Medicine 10/19/23 documented as of this encounter
--- OUTSIDE RECORDS SUMMARY | 2025-03-20 11:12 | XMS_ITS | Patient Health Record ---
Author Organization [employer] Address [address] [facility] [address] [place] [address] Support Name Relationship Address Phone Dane Calles Guarantor Unknown [phone] Allergies Allergen (clinical drug ingredient) Drug/Non Drug [...] Disorder due to type 2 diabetes mellitus (145480164) Type 2 diabetes mellitus with unspecified complications (E11.8) Active confirmed Problem Morbid obesity (disorder) (846522254) Morbid (severe) obesity due to excess calories (E66.01) Active confirmed Problem Mixed hyperlipidemia (277969118) Mixed hyperlipidemia (E78.2) Active confirmed Problem Alcohol dependence (74997188) Alcohol dependence, uncomplicated (F10.20) Active confirmed Problem Mild recurrent major depression (20068311) Major depressive disorder, recurrent, mild (F33.0) Active confirmed Problem 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, intractable, 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) Active confirmed Problem 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, intractable, without status epilepticus (G40.219) Active confirmed Problem Obstructive sleep apnea syndrome (disorder) (09243731) Obstructive sleep apnea (adult) (pediatric) (G47.33) Active confirmed Problem Essential hypertension (66712844) Essential (primary) hypertension (I10) Active confirmed Problem Gastro-esophageal reflux disease without esophagitis (359845375) Gastro-esophageal reflux disease without esophagitis (K21.9) Active confirmed Problem Neurofibromatosis (82394571) Neurofibromatosis , 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) Active confirmed Problem Somnolence (16905450) Somnolence (R40.0) Active confirmed Problem Attention deficit hyperactivity disorder, predominantly inattentive type (disorder) (38228959) Attention and concentration deficit (R41.840) Active confirmed Problem Body mass index 40+ - severely obese (243386097) Body mass index (BMI) 40.0-44.9, adult (Z68.41) Active confirmed Problem Lower urinary tract symptoms due to benign prostatic hypertrophy (22842955167294) Benign prostatic hyperplasia with lower urinary tract symptoms (N40.1) Active confirmed Problem Morbid obesity (262135541) Morbid obesity (E66.01) Active confirmed Plan Of Treatment No Information Medical (General) History Medical History History ICD Code hypertension, benign acid reflux BPH see Urology Attention deficit disorder Neurofibromatosis complex partial seizure disorder Surgical History Surgery Date(Month/Year) Umblical hernia repair 2004 Tonsellectomy Cyst in throat removed
--- OUTSIDE RECORDS SUMMARY | 2025-03-20 11:12 | XMS_ITS | Encounter Summary ---
Author Organization [employer] Address [address] [place] [address] 7 [place] [address] Care Team Providers Care Assembler Dry Cell And Battery Name Role Phone Brittany Saldana MD Primary Care Provider + Darrin Hernandez Unavailable Unavailable Reason for Visit * Reason Comments Med Refill Encounter Details Date Type Department Care Team (Late st Contact Info) Description 07/25/2024 Refill [facility] MEDICINE 230 [place] [address] Brandon Caballero MD 230 [place] [address] Type 2 diabetes mellitus without complication, without long-term current use of insulin ([facility]) Social History Tobacco Use Types Packs/Day [...] Description 03/20/2025 1:15 PM EDT Office Visit [address] [address] Brandon Caballero MD [address] [place] [address] 03/23/2025 12:00 PM EDT Office Visit [address] [address] Brittany Saldana MD [address] [place] [address] 04/12/2025 11:45 AM EDT Office Visit [address] [address] Brittany Saldana MD [address] [place] [address] documented as of this encounter Goals Goal [...] use of insulin ([facility]) documented in this encounter Additional Health Concerns Assessment Noted Time PHQ-9 Depression Total Score: 4 03/06/20 24 2:22 PM EDT documented as of this encounter Care Teams Assembler Dry Cell And Battery Relationship Specialty Start Date End Date Brittany Saldana MD 230 [place] [address] PCP - General Family Medicine 05/08/20 Darrin Hernandez FNP [address] [place] [address] Nurse Practitioner Family Medicine 10/19/23 documented as of this encounter
--- OUTSIDE RECORDS SUMMARY | 2025-03-20 11:12 | XMS_ITS | Encounter Summary ---
Author Organization [employer] Address [address] [place] [address] 7 [place] [address] Care Team Providers Care Bowling Ball Engraver Name Role Phone Brittany Saldana MD Primary Care Provider + Darrin Hernandez Unavailable Unavailable Reason for Visit * Reason Onset Date Comments Med Refill 02/08/2024 Encounter Details Date Type Department Care Team (Late st Contact Info) Description 02/08/2024 Refill [facility] MED [facility] PEDS [address] [place] [address] Brittany Saldana MD [address] [place] [address] Social History Tobacco Use Types Packs/Day Years [...] the past 12 months, has t he [employer], gas, oil or water company threatened to [...] Description 03/20/2025 1:15 PM EDT Office Visit [facility] MEDICINE [address] [place] [address] Brandon Caballero MD [address] [place] [address] 03/23/2025 12:00 PM EDT Office Visit [address] [address] Brittany Saldana MD [address] [place] [address] 04/12/2025 11:45 AM EDT Office Visit [address] [address] Brittany Saldana MD [address] [place] [address] documented as of this encounter Visit Diagnoses Not on filedocumented in this encounter Additional Health Concerns Assessment Noted Time PHQ-9 Depression Total Score: 1 12/27/19 24 1:53 PM EST documented as of this encounter Care Teams Bowling Ball Engraver Relationship Specialty Start Date End Date Brittany Saldana MD [address] [place] [address] PCP - General Family Medicine 05/08/20 Darrin Hernandez FNP [address] [place] [address] Nurse Practitioner Family Medicine 10/19/23 documented as of this encounter
--- OUTSIDE RECORDS SUMMARY | 2025-03-20 11:12 | XMS_ITS | Clinical Summary ---
Author Organization [facility] Address [address] [place] [address] Care Team Providers Care Case Management Associate Name Role Phone Samantha Faye MD Primary Care Provider [phone] Social History Tobacco Use Types Packs/Day Years [...] age to complete this topic Care Teams Case Management Associate Relationship Specialty Start Date End Date Samantha Faye MD [address] [place] [phone] PCP - General 05/08/21
--- OUTSIDE RECORDS SUMMARY | 2025-03-20 11:12 | XMS_ITS | Encounter Summary ---
Author Organization [employer] Address [address] [place] [address] 7 [place] [address] Care Team Providers Care Engine Mechanic Name Role Phone Brittany Saldana MD Primary Care Provider + Darrin Hernandez Unavailable Unavailable Reason for Visit * Reason Comments Med Refill Encounter Details Date Type Department Care Team (Late st Contact Info) Description 04/21/2024 Refill [facility] MEDICINE 230 [place] [address] Brittany Saldana MD 230 [place] [address] Mild intermittent asthma without complication Social History [...] Description 03/20/2025 1:15 PM EDT Office Visit [address] [address] Brandon Caballero MD [address] [place] [address] 03/23/2025 12:00 PM EDT Office Visit [address] [address] Brittany Saldana MD [address] [place] [address] 04/12/2025 11:45 AM EDT Office Visit [address] [address] Brittany Saldana MD [address] [place] [address] documented as of this encounter Goals Goal [...] documented as of this encounter Care Teams Engine Mechanic Relationship Specialty Start Date End Date Brittany Saldana MD [address] [place] [address] PCP - General Family Medicine 05/08/20 Darrin Hernandez FNP [address] [place] [address] Nurse Practitioner Family Medicine 10/19/23 documented as of this encounter
--- OUTSIDE RECORDS SUMMARY | 2025-03-20 11:12 | XMS_ITS | Encounter Summary ---
Author Organization [employer] Address [address] [place] [address] 7 [place] [address] Care Team Providers Care Railroad Car Inspector Name Role Phone Brittany Saldana MD Primary Care Provider + Darrin Hernandez Unavailable Unavailable Reason for Visit * Reason Onset Date Comments Med Refill 01/09/2025 Encounter Details Date Type Department Care Team (Late st Contact Info) Description 01/09/2025 Refill [facility] MEDICINE 230 [place], [place] [phone] Brittany Saldana MD 230 [place] [address] Social History Tobacco Use Types Packs/Day Years [...] Description 03/20/2025 1:15 PM EDT Office Visit [address] [address] Brandon Caballero MD [address] [place] [address] 03/23/2025 12:00 PM EDT Office Visit [address] [address] Brittany Saldana MD [address] [place] [address] 04/12/2025 11:45 AM EDT Office Visit [address] [address] Brittany Saldana MD [address] [place] [address] documented as of this encounter Goals Goal [...] documented as of this encounter Care Teams Railroad Car Inspector Relationship Specialty Start Date End Date Brittany Saldana MD [address] [place] [address] PCP - General Family Medicine 05/08/20 Darrin Hernandez FNP [address] [place] [address] Nurse Practitioner Family Medicine 10/19/23 documented as of this encounter
--- OUTSIDE RECORDS SUMMARY | 2025-03-20 11:12 | XMS_ITS | Encounter Summary ---
Author Organization [employer] Address [address] [place] [address] 7 [place] [address] Care Team Providers Care Master Of Ceremonies Name Role Phone Brittany Saldana MD Primary Care Provider + Darrin Hernandez Unavailable Unavailable Reason for Visit * Reason Onset Date Comments Med Refill 08/11/2024 Encounter Details Date Type Department Care Team (Late st Contact Info) Description 08/11/[address] [facility] MEDICINE 230 [place] [address] Brittany Saldana MD [address] [place] [address] Mild intermittent asthma without complication Social History [...] Description 03/20/2025 1:15 PM EDT Office Visit [address] [address] Brandon Caballero MD [address] [place] [address] 03/23/2025 12:00 PM EDT Office Visit [address] [address] Brittany Saldana MD [address] [place] [address] 04/12/2025 11:45 AM EDT Office Visit [address] [address] Brittany Saldana MD [address] [place] [address] documented as of this encounter Goals Goal [...] as of this encounter Care Teams Master Of Ceremonies Relationship Specialty Start Date End Date Brittany Saldana MD [address] [place] [address] PCP - General Family Medicine 05/08/20 Darrin Hernandez FNP [address] [place] [address] Nurse Practitioner Family Medicine 10/19/23 documented as of this encounter
--- OUTSIDE RECORDS SUMMARY | 2025-03-20 11:12 | XMS_ITS | Encounter Summary ---
Author Organization [employer] Address [address] [place] [address] 7t [place] [address] Care Team Providers Care Nail Mill Worker Name Role Phone Brittany Saldana MD Primary Care Provider + Darrin Hernandez Unavailable Unavailable Encounter Details Date Type Department Care Team (Latest Contact Info) Description 03/16/2025 Travel Social History Tobacco Use Types Packs/Day [...] Description 03/20/2025 1:15 PM EDT Office Visit [address] [address] Brandon Caballero MD [address] [place] [address] 03/23/2025 12:00 PM EDT Office Visit [address] [address] Brittany Saldana MD [address] [place] [address] 04/12/2025 11:45 AM EDT Office Visit [address] [address] Brittany Saldana MD [address] [place] [address] documented as of this encounter Goals Goal [...] documented as of this encounter Care Teams Nail Mill Worker Relationship Specialty Start Date End Date Brittany Saldana MD [address] [place] [address] PCP - General Family Medicine 05/08/20 Darrin Hernandez FNP [address] [place] [address] Nurse Practitioner Family Medicine 10/19/23 documented as of this encounter
--- OUTSIDE RECORDS SUMMARY | 2025-03-20 11:12 | XMS_ITS | Encounter Summary ---
Author Organization [employer] Address [address] [place] [address] 7 [place] [address] Care Team Providers Care Ciaio Lumite Injector Name Role Phone Brittany Saldana MD Primary Care Provider + Darrin Hernandez Unavailable Unavailable Reason for Visit * Reason Onset Date Comments Med Refill 06/11/2024 Encounter Details Date Type Department Care Team (Late st Contact Info) Description 06/11/2024 Refill [facility] MEDICINE 230 [place], [place] [phone] Britatny Saldana MD [address] [place] [address] Social History Tobacco Use Types Packs/Day Years [...] Description 03/20/2025 1:15 PM EDT Office Visit [address] [address] Brandon Caballero MD [address] [place] [address] 03/23/2025 12:00 PM EDT Office Visit [address] [address] Brittany Saldana MD [address] [place] [address] 04/12/2025 11:45 AM EDT Office Visit [address] [address] Brittany Saldana MD [address] [place] [address] documented as of this encounter Goals Goal [...] documented as of this encounter Care Teams Ciaio Lumite Injector Relationship Specialty Start Date End Date Brittany Saldana MD [address] [place] [address] PCP - General Family Medicine 05/08/20 Darrin Hernandez FNP [address] [place] [address] Nurse Practitioner Family Medicine 10/19/23 documented as of this encounter
--- OUTSIDE RECORDS SUMMARY | 2025-03-20 11:12 | XMS_ITS | Encounter Summary ---
Author Organization [employer] Address [address] [place] [address] 7 [place] [address] Care Team Providers Care Horseback Riding Instructor Name Role Phone Brittany Saldana MD Primary Care Provider + Darrin Hernandez Unavailable Unavailable Reason for Visit * Reason Onset Date Comments Med Refill 08/03/2024 Encounter Details Date Type Department Care Team (Late st Contact Info) Description 08/03/2024 Refill [facility] MEDICINE 230 [place] [address] [facility] [address] [place] [address] Mild intermittent asthma without complication Social History [...] 03/20/2025 1:15 PM EDT Office Visit [facility] MEDICINE [address] [place] [address] Brandon Caballero MD [address] [place] [address] 03/23/2025 12:00 PM EDT Office Visit [address] [address] Brittany Saldana MD [address] [place] [address] 04/12/2025 11:45 AM EDT Office Visit [address] [address] Brittany Saldana MD [address] [place] [address] documented as of this encounter Goals Goal [...] documented as of this encounter Care Teams Horseback Riding Instructor Relationship Specialty Start Date End Date Brittany Saldana MD [address] [place] [address] PCP - General Family Medicine 05/08/20 Darrin Hernandez FNP [address] [place] [address] Nurse Practitioner Family Medicine 10/19/23 documented as of this encounter
--- OUTSIDE RECORDS SUMMARY | 2025-03-20 11:12 | XMS_ITS | Encounter Summary ---
Author Organization [employer] Address [address] [place] [address] 7 [place] [address] Care Team Providers Care Manager Safe Name Role Phone Brittany Saldana MD Primary Care Provider + Darrin Hernandez Unavailable Unavailable Reason for Visit * Reason Comments Med Refill Encounter Details Date Type Department Care Team (Late st Contact Info) Description 06/03/2023 Refill [facility] MED[facility] [address] [place] [address] Darrin Hernandez FNP Depression, unspecified depression type [...] Description 03/20/2025 1:15 PM EDT Office Visit [facility] [address] [place] [address] Brandon Caballero MD 230 [facility] [place] [address] 03/23/2025 12:00 PM EDT Office Visit [facility] MED[facility]INE [address] [place], [place] [address] [place] [address] Brittany Saldana MD 230 [place], [place] 04/12/2025 11:45 AM EDT Office Visit [facility] MED[facility]INE [address] [place] [address] Britt[place] [address] documented as of this encounter Visit Diagnoses Diagnosis Depression, unspecified depression type documented in this encounter Additional Health Concerns Assessment Noted Time PHQ-9 Depression Total Score: 11 023 10:47 AM EDT documented as of this encounter Care Teams Manager Safe Relationship Specialty Start Date End Date Britt[place] [address] PCP - General Family Medicine 05/08/20 Darrin Hernandez FNP [address] [place] [address] Nurse Practitioner Family Medicine 10/19/23 documented as of this encounter
--- OUTSIDE RECORDS SUMMARY | 2025-03-20 11:12 | XMS_ITS | Encounter Summary ---
Author Organization [employer] Address [address] [place] [address] 7t [place] [address] Care Team Providers Care Data Systems Manager Name Role Phone Brittany Saldana MD Primary Care Provider + Darrin Hernandez Unavailable Unavailable Reason for Visit * Reason Onset Date Comments Durable Medical Equipment 02/15/2023 Encounter Details Date Type Department Care Team (Late st Contact Info) Description 02/15/2023 Telephone [facility] MEDICINE [address] [place] [address] Brittany Saldana MD 230 [place] [address] Durable Medical Equipment Social History Tobacco Use [...] Description 03/20/2025 1:15 PM EDT Office Visit [facility] MEDICINE [address] [place] [address] Brandon Caballero MD [address] [place] [address] 03/23/2025 12:00 PM EDT Office Visit [facility] MEDICINE [address] [place] [address] Brittany Saldana MD [address] [place] [address] 04/12/2025 11:45 AM EDT Office Visit [address] [address] Brittany Saldana MD [address] [place] [address] documented as of this encounter Visit Diagnoses Not on filedocumented in this encounter Additional Health Concerns Assessment Noted Time PHQ-9 Depression Total Score: 10 023 10:47 AM EDT documented as of this encounter Care Teams Data Systems Manager Relationship Specialty Start Date End Date Brittany Saldana MD [address] [place] [address] PCP - General Family Medicine 05/08/20 Darrin Hernandez FNP [address] [place] [address] Nurse Practitioner Family Medicine 10/19/23 documented as of this encounter
--- OUTSIDE RECORDS SUMMARY | 2025-03-20 11:12 | XMS_ITS | Encounter Summary ---
Author Organization [employer] Address [address] [place] [address] 7 [place] [address] Care Team Providers Care Director Athletic Name Role Phone Brittany Saldana MD Primary Care Provider + Darrin Hernandez Unavailable Unavailable Reason for Visit * Reason Onset Date Comments Med Refill 06/15/2024 Encounter Details Date Type Department Care Team (Late st Contact Info) Description 06/15/2024 Refill [facility] MEDICINE 230 [place], [place] [phone] Brittany Saldana MD 230 [place] [address] Acute insomnia Social History Tobacco Use Types [...] EDT Office Visit [facility] MEDICINE [address] [place] [address] Brandon Caballero MD [address] [place] [address] 03/23/2025 12:00 PM EDT Office Visit [address] [address] Brittany Saldana MD [address] [place] [address] 04/12/2025 11:45 AM EDT Office Visit [address] [address] Brittany Saldana MD [address] [place] [address] documented as of this encounter Goals Goal [...] as of this encounter Care Teams Director Athletic Relationship Specialty Start Date End Date Brittany Saldana MD [address] [place] [address] PCP - General Family Medicine 05/08/20 Darrin Hernandez FNP [address] [place] [address] Nurse Practitioner Family Medicine 10/19/23 documented as of this encounter
--- OUTSIDE RECORDS SUMMARY | 2025-03-20 11:12 | XMS_ITS | Encounter Summary ---
Author Organization [employer] Address [address] [place] [address] 7 [place] [address] Care Team Providers Care Pelletizer Operator Name Role Phone Brittany Saldana MD Primary Care Provider + Darrin Hernandez Unavailable Unavailable Reason for Visit * Reason Onset Date Comments Med Refill 08/03/2024 Encounter Details Date Type Department Care Team (Late st Contact Info) Description 08/03/2024 Refill [facility] MED[facility]INE 230 [place] [address] Brandon Caballero MD 230 [place] [address] Type 2 diabetes mellitus without complication, without long-term current use of insulin ([facility]) Social History Tobacco Use [...] the past 12 months, has t he [employer] gas, oil or water company threatened to [...] Description 03/20/2025 1:15 PM EDT Office Visit [address] [address] Brandon Caballero MD [address] [place] [address] 03/23/2025 12:00 PM EDT Office Visit [address] [address] Brittany Saldana MD [address] [place] [address] 04/12/2025 11:45 AM EDT Office Visit [address] [address] Brittany Saldana MD [address] [place] [address] documented as of this encounter Goals Goal [...] of insulin ([facility]) documented in this encounter Additional Health Concerns Assessment Noted Time PHQ-9 Depression Total Score: 4 03/06/20 24 2:22 PM EDT documented as of this encounter Care Teams Pelletizer Operator Relationship Specialty Start Date End Date Brittany Saldana MD 230 [place] [address] PCP - General Family Medicine 05/08/20 Darrin Hernandez FNP 230 [place] [address] Nurse Practitioner Family Medicine 10/19/23 documented as of this encounter
--- OUTSIDE RECORDS SUMMARY | 2025-03-20 11:12 | XMS_ITS | Encounter Summary ---
Author Organization [employer] Address [address] [place] [address] 7t [place] [address] Care Team Providers Care Wallpaper Consultant Name Role Phone Brittany Saldana MD Primary Care Provider + Darrin Hernandez Unavailable Unavailable Reason for Visit * Reason Onset Date Comments Durable Medical Equipment 02/17/2023 Encounter Details Date Type Department Care Team (Late st Contact Info) Description 02/17/2023 Telephone [facility] MEDICINE 230 [place] [address] Brittany Saldana MD [address] [place] [address] Durable Medical Equipment Social History Tobacco Use [...] . Pt requested to be sent [facility] . Any questions please contact pt at [phone]. documented in this encounter Plan of Treatment Upcoming Encounters Date Type Department Care Team (Late st Contact Info) Description 03/20/2025 1:15 PM EDT Office Visit [facility] MEDICINE [address] [place] [address] Brandon Caballero MD [address] [place] [address] 03/23/2025 12:00 PM EDT Office Visit [facility] MEDICINE [address] [place] [address] Brittany Saldana MD [address] [place] [address] 04/12/2025 11:45 AM EDT Office Visit [address] [address] Brittany Saldana MD [address] [place] [address] documented as of this encounter Visit Diagnoses Not on filedocumented in this encounter Additional Health Concerns Assessment Noted Time PHQ-9 Depression Total Score: 10 023 10:47 AM EDT documented as of this encounter Care Teams Wallpaper Consultant Relationship Specialty Start Date End Date Brittany Saldana MD [address] [place] [address] PCP - General Family Medicine 05/08/20 Darrin Hernandez FNP [address] [place] [address] Nurse Practitioner Family Medicine 10/19/23 documented as of this encounter
--- OUTSIDE RECORDS SUMMARY | 2025-03-20 11:12 | XMS_ITS | Encounter Summary ---
Author Organization [employer] Address [address] [place] [address] 7 [place] [address] Care Team Providers Care Transfer And Pumphouse Operator Chief Name Role Phone Brittany Saldana MD Primary Care Provider + Darrin Hernandez Unavailable Unavailable Reason for Visit * Reason Onset Date Comments Referral 09/24/2023 Encounter Details Date Type Department Care Team (Late st Contact Info) Description 09/24/2023 Telephone [facility] MEDICINE 230 [place] [address] Brittany Saldana MD 230 [place] [address] Referral Social History Tobacco Use Types Packs/Day [...] your housing situation today? I have best howadr 08/30/[address] you li [...] 9:02 AM EST Tc from sri with [facility] requesting a new order for Occupational therapy for weakness in hands. States they received the referral for Occupational therapy but dx says hip pain. Please fax to [phone] Any questions, please contact sri at [phone] documented in this encounter Plan of Treatment Upcoming Encounters Date Type Department Care Team (Late st Contact Info) Description 03/20/2025 1:15 PM EDT Office Visit [facility] MEDICINE [address] [place] [address] Brandon Caballero MD [address] [place] [address] 03/23/2025 12:00 PM EDT Office Visit [facility] MEDICINE [address] [place] [address] Brittany Saldana MD [address] [place] [address] 04/12/2025 11:45 AM EDT Office Visit [facility] MEDICINE 230 [place] [address] Brittany Saldana MD 230 [place] [address] documented as of this encounter Visit Diagnoses Not on filedocumented in this encounter Additional Health Concerns Assessment Noted Time PHQ-9 Depression Total Score: 4 09/06/20 11:30 AM EDT documented as of this encounter Care Teams Transfer And Pumphouse Operator Chief Relationship Specialty Start Date End Date Brittany Saldana MD [address] [place] [address] PCP - General Family Medicine 05/08/20 Darrin Hernandez FNP [address] [place] [address] Nurse Practitioner Family Medicine 10/19/23 documented as of this encounter
--- OUTSIDE RECORDS SUMMARY | 2025-03-20 11:12 | XMS_ITS | Encounter Summary ---
Author Organization [employer] Address [address] [place] [address] 7 [place] [address] Care Team Providers Care Electrical Controls Assembler Name Role Phone Brittany Saldana MD Primary Care Provider + Darrin Hernandez Unavailable Unavailable Reason for Visit * Reason Onset Date Comments Med Refill 06/19/2024 Encounter Details Date Type Department Care Team (Late st Contact Info) Description 06/19/2024 Refill [facility] MEDICINE 230 [place], [place] [phone] Brittany Saldana MD 230 [place] [address] Alcoholism (CMS/HCC); Essential (primary) hypertension Social History [...] Description 03/20/2025 1:15 PM EDT Office Visit [address] [address] Brandon Caballero MD [address] [place] [address] 03/23/2025 12:00 PM EDT Office Visit [address] [address] Brittany Saldana MD [address] [place] [address] 04/12/2025 11:45 AM EDT Office Visit [address] [address] Brittany Saldana MD [address] [place] [address] documented as of this encounter Goals Goal [...] as of this encounter Care Teams Electrical Controls Assembler Relationship Specialty Start Date End Date Brittany Saldana MD 230 [place] [address] PCP - General Family Medicine 05/08/20 Darrin Hernandez FNP [address] [place] [address] Nurse Practitioner Family Medicine 10/19/23 documented as of this encounter
--- OUTSIDE RECORDS SUMMARY | 2025-03-20 11:12 | XMS_ITS | Encounter Summary ---
Author Organization [employer] Address [address] [place] [address] 7 [place] [address] Care Team Providers Care Sales Agent Pest Control Service Name Role Phone Brittany Saldana MD Primary Care Provider + Darrin Hernandez Unavailable Unavailable Reason for Visit * Reason Onset Date Comments Appointment 09/10/2023 Encounter Details Date Type Department Care Team (Late st Contact Info) Description 09/10/2023 Telephone [facility]AL 230 [place] [address] Misbah Kerraris [address] [place] [address] Appointment Social History Tobacco Use Types Packs/Day [...] cleaning appt. Last appt he had in [place] was deep leaning in September and the [...] Description 03/20/2025 1:15 PM EDT Office Visit [facility] MEDICINE [address] [place] [address] Brandon Caballero MD 230 [place] [address] 03/23/2025 12:00 PM EDT Office Visit [facility] MEDICINE [address] [place] [address] Brittany Saldana MD 230 [place] [address] 04/12/2025 11:45 AM EDT Office Visit [facility] MED[facility]INE [address] [place] [address] Brittany Saldana MD [address] [place] [address] documented as of this encounter Visit Diagnoses Not on filedocumented in this encounter Additional Health Concerns Assessment Noted Time PHQ-9 Depression Total Score: 4 09/06/20 23 11:30 AM EDT documented as of this encounter Care Teams Sales Agent Pest Control Service Relationship Specialty Start Date End Date Brittany Saldana MD [address] [place] [address] PCP - General Family Medicine 05/08/20 Darirn Hernandez FNP [address] [place] [address] Nurse Practitioner Family Medicine 10/19/23 documented as of this encounter
--- OUTSIDE RECORDS SUMMARY | 2025-03-20 11:12 | XMS_ITS | Encounter Summary ---
Author Organization [employer] Address [address] [place] [address] 7t [place] [address] Care Team Providers Care Material Manager Name Role Phone Brittany Saldana MD Primary Care Provider + Darrin Hernandez Unavailable Unavailable Encounter Details Date Type Department Care Team (Late st Contact Info) Description 10/10/2024 Abstract [facility] MEDICINE 230 [place] [address] Brittany Saldana MD 230 [place] [address] Social History Tobacco Use Types Packs/Day Years [...] 03/20/2025 1:15 PM EDT Office Visit [facility] MEDICINE [address] [place] [address] Brandon Caballero MD [address] [place] [address] 03/23/2025 12:00 PM EDT Office Visit [address] [address] Brittany Saldana MD [address] [place] [address] 04/12/2025 11:45 AM EDT Office Visit [address] [address] Brittany Saldana MD [address] [place] [phone] documented as of this encounter Goals Goal [...] as of this encounter Care Teams Material Manager Relationship Specialty Start Date End Date Brittany Saldana MD 230 [place] [address] PCP - General Family Medicine 05/08/20 Darrin Hernandez FNP 230 [place] [address] Nurse Practitioner Family Medicine 10/19/23 documented as of this encounter
--- OUTSIDE RECORDS SUMMARY | 2025-03-20 11:12 | XMS_ITS | Encounter Summary ---
Author Organization [employer] Address [address] [place] [address] 7 [place] [address] Care Team Providers Care Fuel Quality Tech Name Role Phone Brittany Saldana MD Primary Care Provider + Darrin Hernandez Unavailable Unavailable Reason for Visit * Reason Comments Med Refill Encounter Details Date Type Department Care Team ([facility] st Contact Info) Description 03/19/2025 Refill [facility] MEDICINE 230 [place] [address] Brittany Saldana MD 230 [place] [address] Social History Tobacco Use Types Packs/Day Years [...] encounter Miscellaneous Notes * Telephone Encounter - Toya Greene LPN - 03/20/2025 11:08 AM EDT Infection Preventionist ck [id number] documented in this encounter Plan of Treatment Upcoming Encounters Date Type Department Care Team (Late st Contact Info) Description 03/20/2025 1:15 PM EDT Office Visit [facility] MEDICINE [address] [place] [address] Brandon Caballero MD [address] [place] [address] 03/23/2025 12:00 PM EDT Office Visit [facility] MEDICINE [address] [place] [address] Brittany Saldana MD [address] [place] [address] 04/12/2025 11:45 AM EDT Office Visit [address] [address] Brittany Saldana MD 230 [place] [address] documented as of this encounter Goals Goal [...] documented as of this encounter Care Teams Fuel Quality Tech Relationship Specialty Start Date End Date Brittany Saldana MD [address] [place] [address] PCP - General Family Medicine 05/08/20 Darrin Hernandez FNP [address] [place] [address] Nurse Practitioner Family Medicine 10/19/23 documented as of this encounter
--- OUTSIDE RECORDS SUMMARY | 2025-03-20 11:12 | XMS_ITS | Encounter Summary ---
Author Organization [employer] Address [address] [place] [address] 7 [place] [address] Care Team Providers Care Farm Planner Name Role Phone Brittany Saldana MD Primary Care Provider + Darrin Hernandez Unavailable Unavailable Reason for Visit * Reason Onset Date Comments Referral 09/02/2023 Encounter Details Date Type Department Care Team (Late st Contact Info) Description 09/02/2023 Telephone [facility] MEDICINE 230 [place] [address] Brittany Saldana MD 230 [place] [address] Referral Social History Tobacco Use Types Packs/Day [...] from pt requesting a new referral for Dubbing Machine Operator Specialist, pt stated needs a hearing test. documented in this encounter Plan of Treatment Upcoming Encounters Date Type Department Care Team (Late st Contact Info) Description 03/20/2025 1:15 PM EDT Office Visit [facility] MEDICINE [address] [place] [address] Brandon Caballero MD [address] [place] [address] 03/23/2025 12:00 PM EDT Office Visit [facility] MEDICINE [address] [place] [address] Brittany Saldana MD [address] [place] [address] 04/12/2025 11:45 AM EDT Office Visit [facility] MED[facility]INE [address] [place] [address] Brittany Saldana MD [address] [place] [address] documented as of this encounter Visit Diagnoses Diagnosis 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) Neurofibromatosis, Type 1 (von Recklinghausen's disease) documented in this encounter Additional Health Concerns Assessment Noted Time PHQ-9 Depression Total Score: 7 07/06/20 23 2:07 PM EDT documented as of this encounter Care Teams Farm Planner Relationship Specialty Start Date End Date Brittany Saldana MD [address] [place] [address] PCP - General Family Medicine 05/08/20 Darrin Hernandez FNP [address] [place] [address] Nurse Practitioner Family Medicine 10/19/23 documented as of this encounter
--- OUTSIDE RECORDS SUMMARY | 2025-03-20 11:12 | XMS_ITS | Encounter Summary ---
Author Organization [employer] Address [address] [place] [address] 7 [place] [address] Care Team Providers Care Director Of Strategic Programs Name Role Phone Brittany Saldana MD Primary Care Provider + Darrin Hernandez Unavailable Unavailable Reason for Visit * Reason Onset Date Comments Med Refill 05/20/2024 Encounter Details Date Type Department Care Team (Late st Contact Info) Description 05/20/2024 Refill [facility] MEDICINE 230 [place] [address] Darrin Hernandez FNP Social History Tobacco Use [...] Description 03/20/2025 1:15 PM EDT Office Visit [address] [address] Brandon Caballero MD [address] [place] [address] 03/23/2025 12:00 PM EDT Office Visit [address] [address] Brittany Saldana MD [address] [place] [address] 04/12/2025 11:45 AM EDT Office Visit [address] [address] Brittany Saldana MD [address] [place] [address] documented as of this encounter Goals Goal [...] of this encounter Care Teams Director Of Strategic Programs Relationship Specialty Start Date End Date Brittany Saldana MD [address] [place] [address] PCP - General Family Medicine 05/08/20 Darrin Hernandez FNP [address] [place] [address] Nurse Practitioner Family Medicine 10/19/23 documented as of this encounter
--- OUTSIDE RECORDS SUMMARY | 2025-03-20 11:12 | XMS_ITS | Encounter Summary ---
Author Organization [employer] Address [address] [place] [address] [facility] [place] [address] Care Team Providers Care Clinical Allergist Name Role Phone Brittany Saldana MD Primary Care Provider + Darrin Hernandez Unavailable Unavailable Reason for Visit * Reason Comments Med Refill Encounter Details Date Type Department Care Team (Late st Contact Info) Description 03/15/2023 Refill [facility] MEDICINE 230 [place] [address] Brittany Saldana MD 230 [place] [address] Primary hypertension Social History Tobacco Use Types [...] Description 03/20/2025 1:15 PM EDT Office Visit [facility] MEDICINE [address] [place] [address] Brandon Caballero MD 230 [place] [address] 03/23/2025 12:00 PM EDT Office Visit [facility] MEDICINE [address] [place] [address] Brittany Saldana MD 230 [place] [address] 04/12/2025 11:45 AM EDT Office Visit [facility] MED[facility]INE [address] [place] [phone] Brittany Saldana MD 230 [place] [address] documented as of this encounter Visit Diagnoses Diagnosis Primary hypertension Unspecified essential hypertension documented in this encounter Additional Health Concerns Assessment Noted Time PHQ-9 Depression Total Score: 10 02/11/ 023 10:47 AM EDT documented as of this encounter Care Teams Clinical Allergist Relationship Specialty Start Date End Date Brittany Saldana MD [address] [place] [address] PCP - General Family Medicine 05/08/20 Darrin Hernandez FNP [address] [place] [address] Nurse Practitioner Family Medicine 10/19/23 documented as of this encounter
== END 2025-03-20 10:42 | disposition home or self-care (01) ==
LOC: HO.HGS 09:56
PROVIDERS: PCP Internal Medicine; Visit Provider Surgery
DX: K43.2 Incisional hernia without obstruction or gangrene (principal)
CPT/HCPCS: 99204

== ENCOUNTER → 2025-03-20 09:56 | Outpatient (BNVA) | payer OTHER, SELFPAY | PROVIDERS: PCP Internal Medicine; Visit Provider Surgery | DX: K43.2 Incisional hernia without obstruction or gangrene (principal) | CPT/HCPCS: 99202 ==

== ENCOUNTER 2025-03-26 13:30 | Outpatient (REF) | payer OTHER, SELFPAY ==
--- OUTSIDE RECORDS SUMMARY | 2025-03-26 13:48 | XMS_ITS | Encounter Summary ---
Author Organization [employer] Address [address] [place] [address] [place] [address] Care Team Providers Care Student Finance Advisor Name Role Phone Brittany Saldana MD Primary Care Provider + Darrin Hernandez Unavailable Unavailable Reason for Visit * Reason Onset Date Comments Med Refill 06/11/2024 Encounter Details Date Type Department Care Team (Late st Contact Info) Description 06/11/2024 Refill [facility] [address] [place], [place] [phone] Brittany Saldana MD [address] [place] [address] Social History Tobacco Use Types Packs/Day Years [...] Care Team (Late st Contact Info) Description 05/15/2025 1:00 PM EDT Office Visit [facility] [address] [place] [address] Brandon Caballero MD [address] [place] [address] 06/19/2025 11:45 AM EDT Office Visit [address] [address] Brittany Saldana MD [address] [place] [address] documented as of this encounter Goals Goal Patient Goal Type Associated Problems Recent Progress Patient-Stated? Author Blood Pressure < 140/90 Blood Pressure 145/82(2024 1:22 PM EDT) No Venkatesh Skinner PharmD Hemoglobin A1c < 7 Result Component 5.1( 11:19 AM EST) No Venkatesh Skinner PharmD documented as of this encounter Visit Diagnoses Not on filedocumented in this encounter Additional Health Concerns Assessment Noted Time PHQ-9 Depression Total Score: 4 03/06/20 24 2:22 PM EDT documented as of this encounter Care Teams Student Finance Advisor Relationship Specialty Start Date End Date Brittany Saldana MD [address] [place] [address] PCP - General Family Medicine 05/08/20 Darrin Hernandez FNP [address] [place] [address] Nurse Practitioner Family Medicine 10/19/23 documented as of this encounter
--- OUTSIDE RECORDS SUMMARY | 2025-03-26 13:48 | XMS_ITS | Encounter Summary ---
Author Organization [employer] Address [address] [place] [address] [place] [address] Care Team Providers Care Mattress Packer Name Role Phone Brittany Saldana MD Primary Care Provider + Darrin Hernandez Unavailable Unavailable Reason for Visit * Reason Onset Date Comments Med Refill 08/11/2024 Encounter Details Date Type Department Care Team (Late st Contact Info) Description 08/11/2024 Refill [facility] MED[facility]INE 230 [place], [place] [phone] Brittany Saldana MD 230 [place] [address] Mild intermittent asthma without complication Social History [...] Description 05/15/2025 1:00 PM EDT Office Visit [facility]INE [address] [place] [address] Brandon Caballero MD [address] [place] [address] 06/19/2025 11:45 AM EDT Office Visit [address] [address] Brittany Saldana MD [address] [place] [address] documented as of this encounter Goals Goal [...] documented as of this encounter Care Teams Mattress Packer Relationship Specialty Start Date End Date Brittany Saldana MD 230 [place] [address] PCP - General Family Medicine 05/08/20 Darrin Hernandez FNP 230 [place] [address] Nurse Practitioner Family Medicine 10/19/23 documented as of this encounter
--- OUTSIDE RECORDS SUMMARY | 2025-03-26 13:48 | XMS_ITS | Encounter Summary ---
Author Organization [employer] Address [address] [place] [address] [place] [address] Care Team Providers Care Route Salesperson Name Role Phone Brittany Saldana MD Primary Care Provider + Darrin Hernandez Unavailable Unavailable Reason for Visit * Reason Onset Date Comments Med Refill 04/16/2024 Encounter Details Date Type Department Care Team (Late st Contact Info) Description 04/16/2024 Refill [facility] [address] [place] [address] Darrin Hernandez FNP PTSD (post-traumatic stress disorder) [...] Description 05/15/2025 1:00 PM EDT Office Visit [facility] [address] [place] [address] Brandon Caballero MD [address] [place] [address] 06/19/2025 11:45 AM EDT Office Visit [address] [address] Brittany Saldana MD [address] [place] [address] documented as of this encounter Goals Goal [...] documented as of this encounter Care Teams Route Salesperson Relationship Specialty Start Date End Date Brittany Saldana MD [address] [place] [address] PCP - General Family Medicine 05/08/20 Darrin Hernandez FNP [address] [place] [address] Nurse Practitioner Family Medicine 10/19/23 documented as of this encounter
--- OUTSIDE RECORDS SUMMARY | 2025-03-26 13:48 | XMS_ITS | Encounter Summary ---
Author Organization [employer] Address [address] [place] [address] [place] [address] Care Team Providers Care Regional Psychiatric Director Name Role Phone Brittany Saldana MD Primary Care Provider + Darrin Hernandez Unavailable Unavailable Reason for Visit * Reason Onset Date Comments Referral 09/02/2023 Encounter Details Date Type Department Care Team (Late st Contact Info) Description 09/02/2023 Telephone [facility] MED[facility]INE [address] [place] [address] Brittany Saldana MD [address] [place] [address] Referral Social History Tobacco Use Types Packs/Day [...] from pt requesting a new referral for Dental Tech Specialist, pt stated needs a hearing test. documented in this encounter Plan of Treatment Upcoming Encounters Date Type Department Care Team (Late st Contact Info) Description 05/15/2025 1:00 PM EDT Office Visit [facility] [address] [place] [address] Brandon Caballero MD [address] [place] [address] 06/19/2025 11:45 AM EDT Office Visit [facility] [address] [place] [address] [phone] Brittany Saldana MD [address] [place] [address] documented as of this encounter Visit Diagnoses Diagnosis 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, type 1 (von Recklinghausen's disease) (CMS/HCC) Neurofibromatosis, Type 1 (von Recklinghausen's disease) documented in this encounter Additional Health Concerns Assessment Noted Time PHQ-9 Depression Total Score: 7 07/06/20 23 2:07 PM EDT documented as of this encounter Care Teams Regional Psychiatric Director Relationship Specialty Start Date End Date Brittany Saldana MD [address] [place] [address] PCP - General Family Medicine 05/08/20 Darrin Hernandez FNP [address] [place] [address] Nurse Practitioner Family Medicine 10/19/23 documented as of this encounter
--- OUTSIDE RECORDS SUMMARY | 2025-03-26 13:48 | XMS_ITS | Encounter Summary ---
Author Organization [employer] Address [address] [place] [address] 7located [facility] [place] [address] Care Team Providers Care Windows Administrator Name Role Phone Brittany Saldana MD Primary Care Provider + Darrin Hernandez Unavailable Unavailable Reason for Visit * Reason Onset Date Comments Appointment 09/10/2023 Encounter Details Date Type Department Care Team (Late st Contact Info) Description 09/10/2023 Telephone [facility] [address] [place] [address] Conchita Kerr [address] [place] [address] Appointment Social History Tobacco Use Types Packs/Day [...] cleaning appt. Last appt he had in [place] was deep leaning in September and the [...] Description 05/15/2025 1:00 PM EDT Office Visit [facility] MED[facility] [address] [place] [address] Brandon Caballero MD [address] [place] [address] 06/19/2025 11:45 AM EDT Office Visit [facility] [address] [place] [address] Brittany Saldana MD [address] [place] [address] documented as of this encounter Visit Diagnoses Not on filedocumented in this encounter Additional Health Concerns Assessment Noted Time PHQ-9 Depression Total Score: 4 09/06/20 23 11:30 AM EDT documented as of this encounter Care Teams Windows Administrator Relationship Specialty Start Date End Date Brittany Saldana MD [address] [place] [address] PCP - General Family Medicine 05/08/20 Darrin Hernandez FNP [address] [place] [address] Nurse Practitioner Family Medicine 10/19/23 documented as of this encounter
--- OUTSIDE RECORDS SUMMARY | 2025-03-26 13:48 | XMS_ITS | Encounter Summary ---
Author Organization [employer] Address [address] [place] [address] Care Team Providers Care Outbound Telemarketer Name Role Phone Brittany Saldana MD Primary Care Provider + Darrin Hernandez Unavailable Unavailable Encounter Details Date Type Department Care Team (Latest Contact Info) Description 08/07/2022 Abstract [facility] CONVERSIONS Dental, Provider, DDS Social [...] Description 05/15/2025 1:00 PM EDT Office Visit [facility] MEDICINE [address] [place] [address] Brandon Caballero MD [address] [place] [address] 06/19/2025 11:45 AM EDT Office Visit [facility] MEDICINE [address] [place] [address] Brittany Saldana MD [address] [place] [address] documented as of this encounter Visit Diagnoses Not on filedocumented in this encounter Care Teams Outbound Telemarketer Relationship Specialty Start Date End Date Brittany Saldana MD 230 [place] [address] PCP - General Family Medicine 05/08/20 Darrin Hernandez FNP [address] [place] [address] Nurse Practitioner Family Medicine 10/19/23 documented as of this encounter
--- OUTSIDE RECORDS SUMMARY | 2025-03-26 13:48 | XMS_ITS | Patient Health Record ---
Author Organization [employer] Address [address] [facility] [address] [place] [address] Support Name Relationship Address Phone Dane Calles Guarantor Unknown [phone] Allergies Allergen (clinical drug ingredient) Drug/Non Drug [...] Disorder due to type 2 diabetes mellitus (446729195) Type 2 diabetes mellitus with unspecified complications (E11.8) Active confirmed Problem Morbid obesity (disorder) (560374662) Morbid (severe) obesity due to excess calories (E66.01) Active confirmed Problem Mixed hyperlipidemia (466699757) Mixed hyperlipidemia (E78.2) Active confirmed Problem Alcohol dependence (56300235) Alcohol dependence, uncomplicated (F10.20) Active confirmed Problem Mild recurrent major depression (65318523) Major depressive disorder, recurrent, mild (F33.0) Active confirmed Problem 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, intractable, 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) Active confirmed Problem 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, intractable, without status epilepticus (G40.219) Active confirmed Problem Obstructive sleep apnea syndrome (disorder) (37336944) Obstructive sleep apnea (adult) (pediatric) (G47.33) Active confirmed Problem Essential hypertension (19506554) Essential (primary) hypertension (I10) Active confirmed Problem Gastro-esophageal reflux disease without esophagitis (466930631) Gastro-esophageal reflux disease without esophagitis (K21.9) Active confirmed Problem Neurofibromatosis (99185071) Neurofibromatosis , 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) Active confirmed Problem Somnolence (80515081) Somnolence (R40.0) Active confirmed Problem Attention deficit hyperactivity disorder, predominantly inattentive type (disorder) (15943302) Attention and concentration deficit (R41.840) Active confirmed Problem Body mass index 40+ - severely obese (274659294) Body mass index (BMI) 40.0-44.9, adult (Z68.41) Active confirmed Problem Lower urinary tract symptoms due to benign prostatic hypertrophy (07759793260704) Benign prostatic hyperplasia with lower urinary tract symptoms (N40.1) Active confirmed Problem Morbid obesity (293379696) Morbid obesity (E66.01) Active confirmed Plan Of Treatment No Information Medical (General) History Medical History History ICD Code hypertension, benign acid reflux BPH see Urology Attention deficit disorder Neurofibromatosis complex partial seizure disorder Surgical History Surgery Date(Month/Year) Umblical hernia repair 2004 Tonsellectomy Cyst in throat removed
--- OUTSIDE RECORDS SUMMARY | 2025-03-26 13:48 | XMS_ITS | Encounter Summary ---
Author Organization [employer] Address [address] [place] [address] [place] [address] Care Team Providers Care Counter Former Name Role Phone Brittany Saldana MD Primary Care Provider + Darrin Hernandez Unavailable Unavailable Reason for Visit * Reason Comments Med Refill Encounter Details Date Type Department Care Team (Late st Contact Info) Description 04/21/2024 Refill [facility] 230 [place] [address] Brittany Saldana MD [address] [place] [address] Mild intermittent asthma without complication Social History [...] Description 05/15/2025 1:00 PM EDT Office Visit [facility] MED[facility] [address] [place] [address] Brandon Caballero MD [address] [place] [address] 06/19/2025 11:45 AM EDT Office Visit [facility] [address] [place] [address] [phone] Brittany Saldana MD [address] [place] [address] documented as of this encounter Goals Goal [...] documented as of this encounter Care Teams Counter Former Relationship Specialty Start Date End Date Brittany Saldana MD [address] [place] [address] PCP - General Family Medicine 05/08/20 Darrin Hernandez FNP [address] [place] [address] Nurse Practitioner Family Medicine 10/19/23 documented as of this encounter
--- OUTSIDE RECORDS SUMMARY | 2025-03-26 13:48 | XMS_ITS | Encounter Summary ---
Author Organization [employer] Address [address] [place] [address] Care Team Providers Care Knitting Machine Mechanic Name Role Phone Brittany Saldana MD Primary Care Provider + Darrin Hernandez Unavailable Unavailable Reason for Visit * Reason Onset Date Comments r/s appt 12/24/2022 Encounter Details Date Type Department Care Team (Late st Contact Info) Description 12/24/2022 Telephone [facility] MEDICINE 230 [place] [address] Brittany Saldana MD [address] [place] [address] r/s appt Social History Tobacco Use Types [...] states his ride was not there ontime. Certified Nurse tried booking but December [employer] was full. Please contact pt at [phone] documented in this encounter Plan of Treatment Upcoming Encounters Date Type Department Care Team (Late st Contact Info) Description 05/15/2025 1:00 PM EDT Office Visit [facility] MEDICINE [address] [place] [address] Brandon Caballero MD [address] [place] [address] 06/19/2025 11:45 AM EDT Office Visit [facility] MED[facility]INE [address] [place] [address] Brittany Saldana MD [address] [place] [address] documented as of this encounter Visit Diagnoses Not on filedocumented in this encounter Additional Health Concerns Assessment Noted Time PHQ-9 Depression Total Score: 9 11/05/20 22 9:37 AM EST documented as of this encounter Care Teams Knitting Machine Mechanic Relationship Specialty Start Date End Date Brittany Saldana MD [address] [place] [address] PCP - General Family Medicine 05/08/20 Darrin Hernandez FNP [address] [place] [address] Nurse Practitioner Family Medicine 10/19/23 documented as of this encounter
--- OUTSIDE RECORDS SUMMARY | 2025-03-26 13:48 | XMS_ITS | Encounter Summary ---
Author Organization [employer] Address [address] [place] [address] Care Team Providers Care Nuclear Waste Management Engineer Name Role Phone Brittany Saldana MD Primary Care Provider + Darrin Hernandez Unavailable Unavailable Reason for Visit * Reason Onset Date Comments Med Refill 05/20/2024 Encounter Details Date Type Department Care Team (Late st Contact Info) Description 05/20/2024 Refill [facility] [address] [place] [address] Darrin Hernandez FNP Social History Tobacco Use [...] Description 05/15/2025 1:00 PM EDT Office Visit [facility] [address] [place] [address] Brandon Caballero MD [address] [place] [address] 06/19/2025 11:45 AM EDT Office Visit [facility] [address] [place] [address] Brittany Saldana MD [address] [place] [address] documented as of this encounter Goals Goal [...] as of this encounter Care Teams Nuclear Waste Management Engineer Relationship Specialty Start Date End Date Brittany Saldana MD [address] [place] [address] PCP - General Family Medicine 05/08/20 Darrin Hernandez FNP [address] [place] [address] Nurse Practitioner Family Medicine 10/19/23 documented as of this encounter
--- OUTSIDE RECORDS SUMMARY | 2025-03-26 13:48 | XMS_ITS | Encounter Summary ---
Author Organization [employer] Address [address] [place] [address] [place] [address] Care Team Providers Care Director Sales Training Name Role Phone Brittany Saldana MD Primary Care Provider + Darrin Hernandez Unavailable Unavailable Reason for Visit * Reason Onset Date Comments Med Refill 06/15/2024 Encounter Details Date Type Department Care Team (Late st Contact Info) Description 06/15/2024 Refill [facility] MED[facility]INE 230 [place], [place] [phone] Brittany Saldana MD [address] [place] [address] Acute insomnia Social History Tobacco Use Types [...] Description 05/15/2025 1:00 PM EDT Office Visit [facility] MEDICINE [address] [place] [address] Brandon Caballero MD [address] [place] [address] 06/19/2025 11:45 AM EDT Office Visit [address] [address] Brittany Saldana MD [address] [place] [address] documented as of this encounter Goals Goal [...] as of this encounter Care Teams Director Sales Training Relationship Specialty Start Date End Date Brittany Saldana MD [address] [place] [address] PCP - General Family Medicine 05/08/20 Darrin Hernandez FNP [address] [place] [address] Nurse Practitioner Family Medicine 10/19/23 documented as of this encounter
--- OUTSIDE RECORDS SUMMARY | 2025-03-26 13:48 | XMS_ITS | Encounter Summary ---
Author Organization [employer] Address [address] [place] [address] [place], [place] [address] Care Team Providers Care Director Pharmaceutical Name Role Phone Brittany Saldana MD Primary Care Provider + Darrin Hernandez Unavailable Unavailable Reason for Visit * Reason Comments Med Refill Encounter Details Date Type Department Care Team (Late Contact Info) Description 06/03/2023 Refill [facility] [address] [place] [address] Darrin Hernandez FNP Depression, unspecified depression type [...] Description 05/15/2025 1:00 PM EDT Office Visit [facility] [address] [place] [address] Brandon Caballero MD [address] [place], [place] [phone] 06/19/2025 11:45 AM EDT Office Visit [facility] [address] [place] [address] Brittany Saldana MD [address] [place] [address] documented as of this encounter Visit Diagnoses Diagnosis Depression, unspecified depression type documented in this encounter Additional Health Concerns Assessment Noted Time PHQ-9 Depression Total Score: 11 023 10:47 AM EDT documented as of this encounter Care Teams Director Pharmaceutical Relationship Specialty Start Date End Date Brittany Saldana MD [address] [place] [address] PCP - General Family Medicine 05/08/20 Darrin Hernandez FNP [address] [place] [address] Nurse Practitioner Family Medicine 10/19/23 documented as of this encounter
--- OUTSIDE RECORDS SUMMARY | 2025-03-26 13:48 | XMS_ITS | Encounter Summary ---
Author Organization [employer] Address [address] [place] [address] Care Team Providers Care Hat Body Inspector Name Role Phone Brittany Saldana MD Primary Care Provider + Darrin Hernandez Unavailable Unavailable Reason for Visit * Reason Onset Date Comments Med Refill 06/19/2024 Encounter Details Date Type Department Care Team (Late st Contact Info) Description 06/19/2024 Refill [facility] MEDICINE 230 [place], [place] [phone] Brittany Saldana MD [address] [place] [address] Alcoholism (CMS/HCC); Essential (primary) hypertension Social History [...] Description 05/15/2025 1:00 PM EDT Office Visit [facility] MEDICINE [address] [place] [address] Brandon Caballero MD [address] [place] [address] 06/19/2025 11:45 AM EDT Office Visit [address] [address] Brittany Saldana MD [address] [place] [address] documented as of this encounter Goals Goal Patient Goal Type Associated Problems Recent Progress Patient-Stated? Author Blood Pressure < 140/90 Blood Pressure 145/82(2024 1:22 PM EDT) No Venkatesh Skinner PharmD Hemoglobin A1c < 7 Result Component 5.1( 11:19 AM EST) No Venkatesh Skinner PharmD documented as of this encounter Visit Diagnoses Diagnosis Alcoholism (CMS/[facility]) Other and unspecified alcohol dependence, unspecified drinking behavior Essential (primary) hypertension Unspecified essential hypertension documented in this encounter Additional Health Concerns Assessment Noted Time PHQ-9 Depression Total Score: 4 03/06/20 24 2:22 PM EDT documented as of this encounter Care Teams Hat Body Inspector Relationship Specialty Start Date End Date Brittany Saldana MD [address] [place] [address] PCP - General Family Medicine 05/08/20 Darrin Hernandez FNP [address] [place] [address] Nurse Practitioner Family Medicine 10/19/23 documented as of this encounter
--- OUTSIDE RECORDS SUMMARY | 2025-03-26 13:49 | XMS_ITS | Encounter Summary ---
Author Organization [employer] Address [address] [place] [address] 7t [place] [address] Care Team Providers Care Fur Finisher Seamstress Name Role Phone Brittany Saldana MD Primary Care Provider + Darrin Hernandez TOBACCO SWEEPER Unavailable Unavailable Reason for Visit * Reason Comments Sick on site Encounter Details Date Type Department Care Team (Late st Contact Info) Description 03/23/2025 12:00 PM EDT Office Visit [facility] MED[facility]INE [address] [place] [address] Brtitany Saldana MD [address] [place] [address] Lumbar radiculopathy, chronic (Primary Dx); Type 2 diabetes mellitus without complication, without long-term current use of insulin (CMS/HCC); Polyneuropathy associated with underlying disease (CMS/HCC); Dietary counseling; Exercise counseling; Essential (primary) hypertension Social History Tobacco Use [...] Sign Reading Time Taken Comments Blood Pressure 140/85 03/23/2025 12:06 PM EDT Pulse 80 03/23/2025 11:41 AM EDT Temperature 35.4 ??C (95.8 ??F) 03/23/2025 11:41 AM E DT Respiratory Rate 20 03/23/2025 11:41 AM EDT Oxygen Saturation - - Inhaled Oxygen Concentration - - Weight 73.5 kg (162 lb 2 oz) 03/23/2025 11:41 AM EDT Height 160 cm (5' 3 ) 03/23/2025 11:41 AM EDT Body Mass Index 28.72 03/23/2025 11:41 AM EDT documented in this encounter Progress Notes * Brittany Saldana MD - 03/23/2025 12:00 PM EDT SUBJECTIVE: Dane Calles is a 70 y.o. year old male who presents for follow up. Denies recent illness, injury, or hospitalization. His hearing is back to normal now and he will follow-up with me in 2 months. His pain for him back few pounds since our last visit, has been indulging in high carb meals, takesmultivitamins daily. His labs on 02/21/2025 showed normal TSH and mild normocytic anemia he is HIV Lyme and RPR levels arenormal. Acute Concerns: Has exacerbation of bilateral feet numbness and paresthesias. Negative low back pain, he is taking gabapentin with partial improvement of symptoms, denies somnolence or fatigue. Social History Social History Narrative Not on [...] of left hip Arthritis of both hands Bradycardia Fall (on) (from) other stairs and steps, initial encounter Vertigo Neurofibroma of upper extremity Recurrent major depressive disorder, in partial remission (CMS/HCC) Lumbar radiculopathy, chronic Polyneuropathy associated with underlying disease (CMS/HCC) Sudden right hearing loss No family history on file. Review of Systems Constitutional: Negative for fever. HENT: Negative for congestion, ear pain, rhinorrhea and sore throat. Eyes: Negative for pain and discharge. Respiratory: Negative for cough and shortness of breath. Cardiovascular: Negative for chest pain. Gastrointestinal: Negative for abdominal pain, constipation, diarrhea and nausea. Endocrine: Negative for polydipsia. Genitourinary: Negative for dysuria and frequency. Musculoskeletal: Positive for arthralgias. Negative for neck pain. Neurological: Positive for numbness. Negative for dizziness and headaches. Psychiatric/Behavioral: Negative for agitation. OBJECTIVE: Vitals: 03/23/25 1141 03/23/25 1206 BP: (!) 178/74 (!) 140/85 BP Location: Left arm Left arm Patient Position: Sitting Sitting BP Cuff Size: Adult Adult Pulse: 80 Resp: 20 Temp: 95.8 ??F (35.4 ??C) TempSrc: Temporal Weight: 162 lb 2 oz (73.5 kg) Height: 5' 3 (1.6 m) Physical Exam Constitutional: Appearance: Normal appearance. HENT: [...] Tenderness: There is no abdominal tenderness. Musculoskeletal: General: No tenderness. Normal range of motion. Cervical back: Normal range of motion. No tenderness. Skin: General: Skin is warm. Neurological: General: No focal deficit present. Mental Status: He is alert and oriented to person, place, and time. Psychiatric: Mood and Affect: Mood normal. Problem List Items Addressed This Visit Type 2 diabetes mellitus without complication, without long-term current use of insulin (CMS/HCC) Is fairly controlled, is probably resolved as a result of significant weight loss Will continue to monitor A1c for the next year until November 2025, he is off medications We discussed about continue low-carb/ector meals and exercise as tolerated Follow-up with me in 3 months Relevant Medications gabapentin (Neurontin) 400 MG capsule Polyneuropathy associated with underlying disease (CMS/HCC) Exacerbated as a result of radiculopathy probably Increase gabapentin to 400 mg 3 times daily and encourage stretching exercises of his back and somestrengthening with weights Lumbar radiculopathy, chronic - Primary Probably as a result of rapid weight loss, lack of exercise and loss of muscle protein as well. Advised regarding the stretching and strengthening exercises for his lower back, he will call back as needed if he wants to go to PT Continue Tylenol as needed and reconsult as needed Essential (primary) hypertension Is getting better control, still not at goal. Metoprolol and spironolactone recently added by cardiology. He will continue lisinopril and follow-up with cardiology and with me in 3 months Other Visit Diagnoses Dietary counseling Exercise counseling Follow Up: Current Outpatient Medications on File Prior to Visit Medication Sig Dispense Refill albuterol 108 (90 Base) MCG/ACT inhaler INHALE 2 PUFFS EVERY 4 TO 6 HOURS NEEDED 8.5 g 11 ARIPiprazole (Abilify) 2 MG tablet Take 1 tablet (2 mg) by mouth Once per day. 90 tablet 3 atorvastatin (Lipitor) 20 MG tablet TAKE ONE TABLET BY MOUTH AT BEDTIME (FOR CHOLESTEROL) 30 [id number] buPROPion XL (Wellbutrin XL) 300 MG 24 hr tablet Take 1 tablet (300 mg) by mouth in the morning. 90tablet 3 cloNIDine (Catapres) 0.1 MG tablet TAKE 1 TABLET BY MOUTH AT BEDTIME 90 tablet 3 cyanocobalamin (Vitamin B-12) 1000 MCG tablet TAKE ONE TABLET BY MOUTH EVERY MORNING 30 tablet [...] NOSTRIL ONCE DAILY NEEDED 16 g 3 glucose blood (Basis ScienceTouch Ultra) test strip TEST BLOOD SUGAR TWICE DAILY 100 strip 11 Lancets 28G [facility] Use 1 lancet to monitor blood glucose [...] BY MOUTH AT BEDTIME 30 tablet 3 Multiple Vitamins-Minerals (CertaVite/Antioxidants) tablet Take 1 tablet by mouth in the morning. 30 tablet 11 polyethylene glycol, PEG, 3350 (MiraLax) 17 GM/SCOOP powder Take 17 g by mouth if needed each day (constipation >1d). 527 g 11 thiamine (Vitamin B-1) 100 MG tablet TAKE ONE TABLET BY MOUTH EVERY MORNING 30 tablet 11 traZODone (Desyrel) 100 MG tablet TAKE TWO TABLETS BY MOUTH AT BEDTIME 60 tablet 11 [DISCONTINUED] cyanocobalamin (Vitamin B-12) 1000 MCG tablet TAKE 1 TABLET BY MOUTH EVERY MORNING 30 tablet 11 [DISCONTINUED] gabapentin (Neurontin) 300 MG capsule TAKE ONE CAPSULE BY MOUTH EVERY MORNING, AT NOON AND AT BEDTIME 90 capsule 11 [DISCONTINUED] methylphenidate ER (Concerta) 36 MG CR tablet TAKE 1 TABLET BY MOUTH EVERY DAY IN THE MORNING DO NOT BREAK, CRUSH, DISSOLVE OR CHEW 30 tablet 0 [DISCONTINUED] methylphenidate ER (Concerta) 36 MG CR tablet TAKE 1 TABLET BY MOUTH EVERY DAY IN THE MORNING DO NOT BREAK, CRUSH, DISSOLVE OR CHEW 30 tablet 0 [DISCONTINUED] thiamine (Vitamin B-1) 100 MG tablet 1 tab po/d 30 tablet 11 No current facility-administered medications on file prior to visit. documented in this encounter Miscellaneous Notes * Assessment & Plan Note - Brittany Saldana MD - 03/23/2025 12:39 PM EDT Associated Problem(s): Essential (primary) hypertension Is getting better control, still not at goal. Metoprolol and spironolactone recently added by cardiology. He will continue lisinopril and follow-up with cardiology and with me in 3 months * Assessment & Plan Note - Brittany Saldana MD - 03/23/2025 12:37 PM EDT Associated Problem(s): Type 2 diabetes mellitus without complication, without long-term current useof insulin ([facility]) Is fairly controlled, is probably resolved as a result of significant weight loss Will continue to monitor A1c for the next year until November 2025, he is off medications We discussed about continue low-carb/ector meals and exercise as tolerated Follow-up with me in 3 months * Assessment & Plan Note - Brittany Saldana MD - 03/23/2025 12:36 PM EDT Associated Problem(s): Lumbar radiculopathy, chronic Probably as a result of rapid weight loss, lack of exercise and loss of muscle protein as well. Advised regarding the stretching and strengthening exercises for his lower back, he will call back as needed if he wants to go to PT Continue Tylenol as needed and reconsult as needed * Assessment & Plan Note - Brittany Saldana MD - 03/23/2025 12:36 PM EDT Associated Problem(s): Polyneuropathy associated with underlying disease (CMS/HCC) Exacerbated as a result of radiculopathy probably Increase gabapentin to 400 mg 3 times daily and encourage stretching exercises of his back and somestrengthening with weights documented in this encounter Plan of Treatment Upcoming Encounters Date Type Department Care Team (Late st Contact Info) Description 05/15/2025 1:00 PM EDT Office Visit [facility] MEDICINE [address] [place] [phone] Brandon Caballero MD [address] [place] [address] 06/19/2025 11:45 AM EDT Office Visit [address] [address] Brittany Saldana MD [address] [place] [address] documented as of this encounter Goals Goal Patient Goal Type Associated Problems Recent Progress Patient-Stated? Author Blood Pressure < 140/90 Blood Pressure 145/82(2024 1:22 PM EDT) No Venkatesh Skinner PharmD Decrease the frequency of unwanted emotions so that daily functioning is improved General No Janae Walden, RN Hemoglobin A1c < 7 Result Component 5.1( 11:19 AM EST) No Venkatesh Skinner PharmD documented as of this encounter Visit Diagnoses Diagnosis Lumbar radiculopathy, chronic- Primary Type 2 diabetes mellitus without complication, without long-term current use of insulin (CMS/[facility]) Polyneuropathy associated with underlying disease (CMS/[facility]) Dietary counseling Dietary surveillance and counseling Exercise counseling Essential (primary) hypertension Unspecified essential hypertension documented in this encounter Additional Health Concerns Assessment Noted Time PHQ-9 Depression Total Score: 2 12/07/19 25 10:39 AM EST documented as of this encounter Care Teams Fur Finisher Seamstress Relationship Specialty Start Date End Date Brittany Saldana MD [address] [place] [address] PCP - General Family Medicine 05/08/20 Darrin Hernandez FNP [address] [place] [address] Nurse Practitioner Family Medicine 10/19/23 documented as of this encounter
--- OUTSIDE RECORDS SUMMARY | 2025-03-26 13:49 | XMS_ITS | Encounter Summary ---
Author Organization [employer] Address [address] [place] [address] Care Team Providers Care Universal Grinder Tool Name Role Phone Brittany Saldana MD Primary Care Provider + Darrin Hernandez Unavailable Unavailable Reason for Visit * Reason Onset Date Comments Referral 09/24/2023 Encounter Details Date Type Department Care Team (Late st Contact Info) Description 09/24/2023 Telephone [facility] MEDICINE [address] [place] [address] Brittany Saldana MD [address] [place] [address] Referral Social History Tobacco Use Types Packs/Day [...] 9:02 AM EST Tc from sri with [facility] requesting a new order for Occupational therapy for weakness in hands. States they received the referral for Occupational therapy but dx says hip pain. Please fax to [phone] Any questions, please contact sri at [phone] documented in this encounter Plan of Treatment Upcoming Encounters Date Type Department Care Team (Late st Contact Info) Description 05/15/2025 1:00 PM EDT Office Visit [facility] MEDICINE [address] [place] [phone] Brandon Caballero MD [address] [place] [address] 06/19/2025 11:45 AM EDT Office Visit [facility] MED[facility]INE [address] [place] [address] Brittany Saldana MD [address] [place] [phone] documented as of this encounter Visit Diagnoses Not on filedocumented in this encounter Additional Health Concerns Assessment Noted Time PHQ-9 Depression Total Score: 4 09/06/20 23 11:30 AM EDT documented as of this encounter Care Teams Universal Grinder Tool Relationship Specialty Start Date End Date Brittany Saldana MD [address] [place] [address] PCP - General Family Medicine 05/08/20 Darrin Hernandez FNP [address] [place] [address] Nurse Practitioner Family Medicine 10/19/23 documented as of this encounter
--- OUTSIDE RECORDS SUMMARY | 2025-03-26 13:49 | XMS_ITS | Encounter Summary ---
Author Organization [employer] Address [address] [place] [address] 7t [place] [address] Care Team Providers Care Sales Representative Womens Health Name Role Phone Brittany Saldana MD Primary Care Provider + Darrin Hernandez Unavailable Unavailable Encounter Details Date Type Department Care Team (Latest Contact Info) Description 03/23/2025 Travel Social History Tobacco Use Types Packs/Day [...] Description 05/15/2025 1:00 PM EDT Office Visit [facility] MEDICINE [address] [place] [address] Brandon Caballero MD [address] [place] [address] 06/19/2025 11:45 AM EDT Office Visit [address] [address] Brittany Saldana MD [address] [place] [address] documented as of this encounter Goals Goal Patient Goal Type Associated Problems Recent Progress Patient-Stated? Author Blood Pressure < 140/90 Blood Pressure 145/82(2024 1:22 PM EDT) No Venkatesh Skinner, PharmD Decrease the frequency of unwanted emotions [...] as of this encounter Care Teams Sales Representative Wom[employer] Relationship Specialty Start Date End Date Brittany Saldana MD [address] [place] [address] PCP - General Family Medicine 05/08/20 Darrin Hernandez FNP [address] [place] [address] Nurse Practitioner Family Medicine 10/19/23 documented as of this encounter
--- OUTSIDE RECORDS SUMMARY | 2025-03-26 13:49 | XMS_ITS | Encounter Summary ---
Author Organization [employer] Address [address] [place] [address] [place] [address] Care Team Providers Care Donor Services Team Leader Name Role Phone Brittany Saldana MD Primary Care Provider + Darrin Hernandez Unavailable Unavailable Reason for Visit * Reason Onset Date Comments Med Refill 08/03/2024 Encounter Details Date Type Department Care Team (Late st Contact Info) Description 08/03/2024 Refill [facility] MEDICINE [address] [place] [address] Brandon Caballero MD [address] [place] [address] Type 2 diabetes mellitus without complication, without long-term current use of insulin ([facility]) Social History Tobacco Use Types [...] the past 12 months, has t he [employer], gas, oil or water [employer] threatened to shut off services in your [...] Description 05/15/2025 1:00 PM EDT Office Visit [facility] MEDICINE [address] [place] [address] Brandon Caballero MD [address] [place] [address] 06/19/2025 11:45 AM EDT Office Visit [facility] MED[facility]INE [address] [place] [address] Brittany Saldana MD [address] [place] [address] documented as of this encounter Goals Goal Patient Goal Type Associated Problems Recent Progress Patient-Stated? Author Blood Pressure < 140/90 Blood Pressure 145/82(2024 1:22 PM EDT) No Venkatesh Skinner, [place] Hemoglobin A1c < 7 Result Component 5.1( 11:19 AM EST) No Venkatesh Skinner PharmD documented as of this encounter Visit Diagnoses Diagnosis Type 2 diabetes mellitus without complication, without long-term current use of insulin ([facility]) documented in this encounter Additional Health Concerns Assessment Noted Time PHQ-9 Depression Total Score: 4 03/06/20 24 2:22 PM EDT documented as of this encounter Care Teams Donor Services Team Leader Relationship Specialty Start Date End Date Brittany Saldana MD [address] [place] [address] PCP - General Family Medicine 05/08/20 Darrin Hernandez FNP [address] [place] [address] Nurse Practitioner Family Medicine 10/19/23 documented as of this encounter
--- OUTSIDE RECORDS SUMMARY | 2025-03-26 13:49 | XMS_ITS | Encounter Summary ---
Author Organization [employer] Address [address] [place] [address] [place] [address] Care Team Providers Care Sharepoint Application Architect Name Role Phone Brittany Saldana MD Primary Care Provider + Darrin Hernandez Unavailable Unavailable Reason for Visit * Reason Onset Date Comments Med Refill 07/23/2024 Encounter Details Date Type Department Care Team (Late st Contact Info) Description 07/23/2024 Refill [facility]INE [address] [place] [address] Prior LakeAlexus FNP [address] [place] [address] Depression, unspecified depression type Social History Tobacco [...] Description 05/15/2025 1:00 PM EDT Office Visit [facility] MED[facility]INE [address] [place] [address] Brandon Caballero MD [address] [place] [address] 06/19/2025 11:45 AM EDT Office Visit [address] [address] Brittany Saldana MD [address] [place] [address] documented as of this encounter Goals Goal [...] documented as of this encounter Care Teams Sharepoint Application Architect Relationship Specialty Start Date End Date Brittany Saldana MD [address] [place] [address] PCP - General Family Medicine 05/08/20 Darrin Hernandez FNP [address] [place] [address] Nurse Practitioner Family Medicine 10/19/23 documented as of this encounter
--- OUTSIDE RECORDS SUMMARY | 2025-03-26 13:49 | XMS_ITS | Encounter Summary ---
Author Organization [employer] Address [address] [place] [address] Care Team Providers Care Apprentice Painter Hand Name Role Phone Brittany Saldana MD Primary Care Provider + Darrin Hernandez Unavailable Unavailable Reason for Visit * Reason Onset Date Comments chart prep 03/22/2025 Encounter Details Date Type Department Care Team (Late st Contact Info) Description 03/22/2025 Telephone [facility] MEDICINE [address] [place] [address] Brittany Saldana MD [address] [place] [address] chart prep Social History Tobacco Use Types Packs/Day Years [...] encounter Miscellaneous Notes * Telephone Encounter - Micaela Sims MA - 03/22/2025 10:06 AM EDT Chart Prep Labs: not done Images: done Referrals: complete Screenings: colonoscopy Overdue care gaps: A1c, Glucose, PHQ-9, LAURA-7, Disability screen, and Tobacco documented in this encounter Plan of Treatment Upcoming Encounters Date Type Department Care Team (Late st Contact Info) Description 05/15/2025 1:00 PM EDT Office Visit [facility] MEDICINE [address] [place] [address] Brandon Caballero MD [address] [place] [address] 06/19/2025 11:45 AM EDT Office Visit [facility] MEDICINE [address] [place] [address] Brittany Saldana MD [address] [place] [address] documented as of this encounter Goals Goal Patient Goal Type Associated Problems Recent Progress Patient-Stated? Author Blood Pressure < 140/90 Blood Pressure 145/82(2024 1:22 PM EDT) No Venkatesh Skinner, [place] Decrease the [...] documented as of this encounter Care Teams Apprentice Painter Hand Relationship Specialty Start Date End Date Brittany Saldana MD [address] [place] [address] PCP - General Family Medicine 05/08/20 Darrin Hernandez FNP [address] [place] [address] Nurse Practitioner Family Medicine 10/19/23 documented as of this encounter
--- OUTSIDE RECORDS SUMMARY | 2025-03-26 13:49 | XMS_ITS | Encounter Summary ---
Author Organization [employer] Address [address] [place] [address] 7 [place] [address] Care Team Providers Care Whitewasher Name Role Phone Brittany Saldana MD Primary Care Provider + Darrin Hernandez Unavailable Unavailable Reason for Visit * Reason Onset Date Comments Med Refill 02/08/2024 Encounter Details Date Type Department Care Team (Late st Contact Info) Description 02/08/2024 Refill [facility] [address] [place] [address] Brittany Saldana MD [address] [place] [address] Social History Tobacco Use Types Packs/Day Years [...] the past 12 months, has t he [employer], gas, oil or water company threatened to [...] Description 05/15/2025 1:00 PM EDT Office Visit [facility] MEDICINE [address] [place] [address] Brandon Caballero MD [address] [place] [address] 06/19/2025 11:45 AM EDT Office Visit [facility] MEDICINE [address] [place] [address] Brittany Saldana MD [address] [place] [address] documented as of this encounter Visit Diagnoses Not on filedocumented in this encounter Additional Health Concerns Assessment Noted Time PHQ-9 Depression Total Score: 1 12/27/19 24 1:53 PM EST documented as of this encounter Care Teams Whitewasher Relationship Specialty Start Date End Date Brittany Saldana MD [address] [place] [address] PCP - General Family Medicine 05/08/20 Darrin Hernandez FNP [address] [place] [address] Nurse Practitioner Family Medicine 10/19/23 documented as of this encounter
--- OUTSIDE RECORDS SUMMARY | 2025-03-26 13:49 | XMS_ITS | Encounter Summary ---
Author Organization [employer] Address [address] [place] [address] [place] [address] Care Team Providers Care Lard Mixer Name Role Phone Brittany Saldana MD Primary Care Provider + Darrin Hernandez Unavailable Unavailable Reason for Visit * Reason Comments Med Refill Encounter Details Date Type Department Care Team (Late st Contact Info) Description 07/25/2024 Refill [facility] [address] [place] [address] Brandon Caballero MD [address] [place] [address] Type 2 diabetes mellitus without complication, without long-term current use of insulin ([facility]) Social History Tobacco Use Types [...] Description 05/15/2025 1:00 PM EDT Office Visit [address] [address] Brandon Caballero MD [address] [place] [address] 06/19/2025 11:45 AM EDT Office Visit [address] [address] Brittany Saldana MD [address] [place] [address] documented as of this encounter Goals Goal [...] complication, without long-term current use of insulin ([facility]) documented in this encounter Additional Health Concerns Assessment Noted Time PHQ-9 Depression Total Score: 4 03/06/20 24 2:22 PM EDT documented as of this encounter Care Teams Lard Mixer Relationship Specialty Start Date End Date Brittany Saldana MD [address] [place] [address] PCP - General Family Medicine 05/08/20 Darrin Hernandez FNP [address] [place] [address] Nurse Practitioner Family Medicine 10/19/23 documented as of this encounter
--- OUTSIDE RECORDS SUMMARY | 2025-03-26 13:49 | XMS_ITS | Encounter Summary ---
Author Organization [employer] Address [address] [place] [address] Care Team Providers Care Gas Turbine Assembler Name Role Phone Brittany Saldana MD Primary Care Provider + Darrin Hernandez Unavailable Unavailable Reason for Visit * Reason Onset Date Comments Nurse Triage 03/26/2025 Encounter Details Date Type Department Care Team (Late st Contact Info) Description 03/26/2025 Telephone [facility] MEDICINE [address] [place] [address] Brittany Saldana MD [address] [place] [address] Nurse Triage Social History Tobacco Use Types [...] encounter Miscellaneous Notes * Telephone Encounter - Garima Lafleur RN - 03/26/2025 8:24 AM EDT Images from the original note were not included. Call returned to Narendra Calles to triage below. Reports having an approximately 15lbs weight gain. Per pt always has swelling of lower legs. No swelling of hands or face. Pt is experiencing some SOB x 2 days. Per pt did have an episode of pink color sputum. Per pt used inahler BID yesterday and Wednesday. None today. Per pt SOB is new. No cough. Pt is having some wheezing. Pe rpt is on a spirinolactone 25mg daily per cardiology. Pt advised of disposition, agrees to sick onsite with PCP. Pt alert, speaking in clear full sentences. No distress noted orthopedic nurse practitioner. No audible wheezing. Protocol Used: Breathing Difficulty (Adult) Protocol-Based Disposition: Go to Office or Video Visit Now Future Appointments Date Time Provider Department Center 03/26/2025 1:00 PM Brittany Saldana MD MEDICINE [facility] 04/12/2025 11:45 AM Brittany Saldana MD MEDICINE [facility] 05/15/2025 1:00 PM Brandon Caballero MD MEDICINE [facility] Insurance verified as active per Real Time Eligibility in Epic. Video visit offer not recorded Positive Triage Question: * Mild difficulty breathing (e.g., minimal/no SOB at rest, SOB with walking, pulse < 100) of new-onset or worse than normal * All higher-acuity triage questions were negative Care Advice Discussed: * Reasons To Call Back - Severe difficulty breathing occurs - You become worse FW: Weight gain Received: Today Garima Lafleur RN P [facility] Triage Nurse Previous Messages Weight gain (Newest Message First) View All Conversations on this Encounter You routed conversation to [facility] Triage Nurse4 minutes ago (8:19 AM) Narendra Lindsey [facility] Clinical Support (supporting Brittany Saldana MD)20 hours ago(11:35 AM) I'm doing nothing different, getting some exercise, eating small amounts, I've made no changes, however, I'm gaining weight rapidly. I have gained 15 pounds in the last 2 weeks. documented in this encounter Plan of Treatment Upcoming Encounters Date Type Department Care Team (Late st Contact Info) Description 05/15/2025 1:00 PM EDT Office Visit [facility] MEDICINE [address] [place] [phone] Brandon Caballero MD [address] [place] [address] 06/19/2025 11:45 AM EDT Office Visit [address] [address] Brittany Saldana MD [address] [place] [address] documented as of this encounter Goals Goal [...] of this encounter Care Teams Gas Turbine Assembler Relationship Specialty Start Date End Date Brittany Saldana MD [address] [place] [address] PCP - General Family Medicine 05/08/20 Darrin Hernandez FNP [address] [place] [address] Nurse Practitioner Family Medicine 10/19/23 documented as of this encounter
--- OUTSIDE RECORDS SUMMARY | 2025-03-26 13:49 | XMS_ITS | Encounter Summary ---
Author Organization [employer] Address [address] [place] [address] [address] [place] [address] Care Team Providers Care Food Service Attendant Name Role Phone Brittany Saldana MD Primary Care Provider + Darrin Hernandez Unavailable Unavailable Encounter Details Date Type Department Care Team (Latest Contact Info) Description 03/26/2025 Travel Social History Tobacco Use Types Packs/Day [...] Description 05/15/2025 1:00 PM EDT Office Visit [facility] MEDICINE [address] [place] [address] Brandon Caballero MD [address] [place] [address] 06/19/2025 11:45 AM EDT Office Visit [address] [address] Brittany Saldana MD [address] [place] [address] documented as of this encounter Goals Goal [...] documented as of this encounter Care Teams Food Service Attendant Relationship Specialty Start Date End Date Brittany Saldana MD [address] [place] [address] PCP - General Family Medicine 05/08/20 Darrin Hernandez FNP [address] [place] [address] Nurse Practitioner Family Medicine 10/19/23 documented as of this encounter
--- OUTSIDE RECORDS SUMMARY | 2025-03-26 13:49 | XMS_ITS | Encounter Summary ---
Author Organization [employer] Address [address] [place] [address] [place] [address] Care Team Providers Care Asset Coordinator Name Role Phone Brittany Saldana MD Primary Care Provider + Darrin Hernandez Unavailable Unavailable Reason for Visit * Reason Onset Date Comments Med Refill 08/03/2024 Encounter Details Date Type Department Care Team (Late st Contact Info) Description 08/03/2024 Refill [facility] MEDICINE [address] [place] [address] [facility] [address] [place] [address] Mild intermittent asthma without complication Social History [...] Description 05/15/2025 1:00 PM EDT Office Visit [facility] MEDICINE [address] [place] [address] Brandon Caballero MD [address] [place] [address] 06/19/2025 11:45 AM EDT Office Visit [address] [address] Brittany Saldana MD [address] [place] [address] documented as of this encounter Goals Goal [...] documented as of this encounter Care Teams Asset Coordinator Relationship Specialty Start Date End Date Brittany Saldana MD [address] [place] [address] PCP - General Family Medicine 05/08/20 Darrin Hernandez FNP [address] [place] [address] Nurse Practitioner Family Medicine 10/19/23 documented as of this encounter
--- OUTSIDE RECORDS SUMMARY | 2025-03-26 13:49 | XMS_ITS | Encounter Summary ---
Author Organization [employer] Address [address] [place], [place] [address] [place] [address] Care Team Providers Care Agile Developer Name Role Phone Brittany Saldana MD Primary Care Provider + Darrin Hernandez Unavailable Unavailable Reason for Visit * Reason Onset Date Comments Durable Medical Equipment 02/17/2023 Encounter Details Date Type Department Care Team (Late st Contact Info) Description 02/17/2023 Telephone [facility] MEDICINE [address] [place] [address] Brittany Saldana MD [address] [place] [address] Durable Medical Equipment Social History Tobacco Use [...] encounter Miscellaneous Notes * Telephone Encounter - Lisapita Lara - 02/18/2023 11:37 AM EDT Scripts generated for providers signature * Telephone Encounter - Moni Garcia - 02/17/2023 3:04 PM EDT TC from pt requesting a walker with wheels and seat and also a medical alert button . Pt requested to be sent to [facility] . Any questions please contact pt at [phone]. documented in this encounter Plan of Treatment Upcoming Encounters Date Type Department Care Team (Late st Contact Info) Description 05/15/2025 1:00 PM EDT Office Visit [facility] MEDICINE [address] [place] [address] Brandon Caballero MD [address] [place] [address] 06/19/2025 11:45 AM EDT Office Visit [facility] MEDICINE [address] [place] [address] Brittany Saldana MD [address] [place] [address] documented as of this encounter Visit Diagnoses Not on filedocumented in this encounter Additional Health Concerns Assessment Noted Time PHQ-9 Depression Total Score: 10 02/11/ 023 10:47 AM EDT documented as of this encounter Care Teams Agile Developer Relationship Specialty Start Date End Date Brittany Saldana MD [address] [place] [address] PCP - General Family Medicine 05/08/20 Darrin Hernandez FNP [address] [place] [address] Nurse Practitioner Family Medicine 10/19/23 documented as of this encounter
--- OUTSIDE RECORDS SUMMARY | 2025-03-26 13:49 | XMS_ITS | Encounter Summary ---
Author Organization [employer] Address [address] [place] [address] 7 [place] [address] Care Team Providers Care Inside Sales Name Role Phone Brittany Saldana MD Primary Care Provider + Darrin Hernandez Unavailable Unavailable Reason for Visit * Reason Comments GBAT Encounter Details Date Type Department Care Team (Late st Contact Info) Description 03/21/2025 10:30 AM EDT Office Visit [facility] MEDICINE [address] [place] [address] Migue Stephens MD [address] [place] [address] Alcohol use disorder, severe, in sustained remission [...] Progress Notes * Migue Stephens MD - 03/21/2025 10:30 AM EDT LAST GBAT VISIT 03/07/2025 Patient presents for Group-Based Opioid Treatment for AUD Reviewed the group goals, expectations and policies Consented to the group treatment options Actively participated in the group discussion with the topic of: Importance of Family in Our Recovery Following staff present at the visit: Envelope Adjuster, Team RN, Clinician, and Subassembly Assembler Opportunities provided to address individual medical/medication/BH concerns States doing well without cravings or relapse Hoping to enroll [facility] Son was recently released from incarceration Looking forward to spending some time with him TODAY GBAT VISIT 03/21/2025 Patient presents for Group-Based Opioid Treatment for AUD Reviewed the group goals, expectations and policies Consented to the group treatment options Actively participated in the group discussion with the topic of: The Grat[employer] as [employer] in Recovery Following staff present at the visit: Physician, Envelope Adjuster, Team RN, Clinician, and MedicalAssistant Opportunities provided to address individual medical/medication/BH concerns States doing well without cravings or relapse Hoping to enroll [facility] Son was recently released from incarceration Looking forward to spending some time with him Review of Systems Psychiatric/Behavioral: Negative for behavioral [...] faced situations that may trigger use Mass MANAGER GIFT reviewed Undergoing training through [employer] Also signed up for [employer] Participating in the [employer] activities Following staff present at the visit: Physician, Team RN, Clinician, Envelope Adjuster and Subassembly Assembler Follow up in 1 week for the [...] Description 05/15/2025 1:00 PM EDT Office Visit [facility] MEDICINE [address] [place] [address] Brandon Caballero MD [address] [place] [address] 06/19/2025 11:45 AM EDT Office Visit [facility] MEDICINE [address] [place] [address] Brittany Saldana MD [address] [place] [address] documented as of this encounter Goals Goal [...] Alcohol use disorder, severe, in sustained remission (CMS/[facility])- Primary documented in this encounter Additional Health Concerns Assessment Noted Time PHQ-9 Depression Total Score: 2 12/07/19 25 10:39 AM EST documented as of this encounter Care Teams Inside Sales Relationship Specialty Start Date End Date Brittany Saldana MD [address] [place] [address] PCP - General Family Medicine 05/08/20 Darrin Hernandez FNP [address] [place] [address] Nurse Practitioner Family Medicine 10/19/23 documented as of this encounter
--- OUTSIDE RECORDS SUMMARY | 2025-03-26 13:49 | XMS_ITS | Encounter Summary ---
Author Organization [employer] Address [address] [place] [address] Care Team Providers Care County Program Technician Name Role Phone Brittany Saldana MD Primary Care Provider + Darrin Hernandez PAPERBACK MACHINE OPERATOR Unavailable Unavailable Reason for Referral * Imaging (Routine) - Pending Review Specialty Diagnoses / Procedures Referred By Neva santa Referred To Contact Radiology Diagnoses Cough with hemoptysis Procedures CT Chest w/o Contrast Brittany Saldana MD [address] [place] [address] Phone: tel: fax: Referral ID Status Reason Start Date Expiration Date V isits Requested Visits Authorized [id number] Pending Review 03/26/2025 03/26/2026 1 1 Reason for Visit * Reason Comments Sick visit Encounter Details Date Type Department Care Team (Late st Contact Info) Description 03/26/2025 1:00 PM EDT Office Visit [facility] MEDICINE [address] [place] [address] Brittany Saldana MD [address] [place] [address] Overweight (Primary Dx); Cough with hemoptysis; Essential (primary) hypertension Social History Tobacco Use [...] Sign Reading Time Taken Comments Blood Pressure 145/82 03/26/2025 1:22 PM EDT Pulse 79 03/26/2025 12:59 PM EDT Temperature 36.3 ??C (97.3 ??F) 03/26/2025 12:59 PM E DT Respiratory Rate 12 03/26/2025 12:59 PM EDT Oxygen Saturation 92% 03/26/2025 12:59 PM EDT Inhaled Oxygen Concentration - - Weight 74.4 kg (164 lb) 03/26/2025 12:59 PM EDT Height 160 cm (5' 3 ) 03/26/2025 12:59 PM EDT Body Mass Index 29.05 03/26/2025 12:59 PM EDT documented in this encounter Miscellaneous Notes * Assessment & Plan Note - Brittany Saldana MD - 03/26/2025 1:28 PM EDT Associated Problem(s): Essential (primary) hypertension Uncontrolled, metoprolol and spironolactone started 2 days ago. Continue lisinopril and follow-up with me in 4 weeks with labs Counseled re low salt diet/increase moderate physical activity. Check home BP BIW and prn CP/[place]/MARQUEZ Non smoking patient. * Assessment & Plan Note - Brittany Saldana MD - 03/26/2025 1:26 PM EDT Associated Problem(s): Overweight He has gained about 14 pounds this year. We discussed about being consistent with small and frequent meal portions and following up later recommendation from dietitian. Order labs, he wants to rule out hypothyroidism Advised to schedule appointment with bariatric surgeon Follow-up with me in 1 month * Assessment & Plan Note - Brittany Saldana MD - 03/26/2025 1:25 PM EDT Associated Problem(s): Cough with hemoptysis Order CT scan of the chest, rule out neoplasm documented in this encounter Plan of Treatment Upcoming Encounters Date Type Department Care Team (Late st Contact Info) Description 05/15/2025 1:00 PM EDT Office Visit [facility] MEDICINE [address] [place], [place] [phone] Brandon Caballero MD [address] [place] [address] 06/19/2025 11:45 AM EDT Office Visit [facility] MEDICINE [address] [place], [place] [phone] Brittany Saldana MD [address] [place], [place] [phone] Scheduled Orders Name Type Priority Associated Diagnoses Orde r Schedule T3, Free Lab Routine Cough with hemoptysis Expected: 03/26/2025 (Approximate), Expires: 03/26/2026 T3, Total Lab Routine Cough with hemoptysis Expected: 03/26/2025 (Approximate), Expires: 03/26/2026 T4, Free Lab Routine Cough with hemoptysis Expected: 03/26/2025 (Approximate), Expires: 03/26/2026 TSH Lab Routine Cough with hemoptysis Expected: 03/26/2025 (Approximate), Expires: 03/26/2026 T4 (Thyroxine), Total Lab Routine Cough with hemoptysis Expected: 03/26/2025 (Approximate), Expires: 03/26/2026 Basic Metabolic Panel Lab Routine Cough with hemoptysis Expected: 03/26/2025 (Approximate), Expires: 03/26/2026 CT Chest w/o Contrast Imaging Routine Cough with hemoptysis Expected: 03/26/2025, Expires: 03/26/2026 documented as of this encounter Goals Goal [...] as of this encounter Visit Diagnoses Diagnosis Overweight- Primary Cough with hemoptysis Essential (primary) hypertension Unspecified essential hypertension documented in this encounter Additional Health Concerns Assessment Noted Time PHQ-9 Depression Total Score: 2 12/07/19 25 10:39 AM EST documented as of this encounter Care Teams County Program Technician Relationship Specialty Start Date End Date Brittany Saldana MD [address] [place] [address] PCP - General Family Medicine 05/08/20 Darrin Hernandez FNP [address] [place] [address] Nurse Practitioner Family Medicine 10/19/23 documented as of this encounter
--- OUTSIDE RECORDS SUMMARY | 2025-03-26 13:49 | XMS_ITS | Encounter Summary ---
Author Organization [employer] Address [address] [place] [address] Care Team Providers Care Wide Area Network Engineer Name Role Phone Brittany Saldana MD Primary Care Provider + Darrin Hernandez Unavailable Unavailable Reason for Visit * Reason Comments Med Refill Encounter Details Date Type Department Care Team (Late st Contact Info) Description 03/15/2023 Refill [facility] MEDICINE [address] [place] [address] Brittany Saldana MD [address] [place] [address] Primary hypertension Social History Tobacco Use Types [...] Description 05/15/2025 1:00 PM EDT Office Visit [facility] MEDICINE [address] [place] [address] Brandon Caballero MD [address] [place] [address] 06/19/2025 11:45 AM EDT Office Visit [facility] MEDICINE [address] [place] [address] Brittany Saldana MD [address] [place] [address] documented as of this encounter Visit Diagnoses Diagnosis Primary hypertension Unspecified essential hypertension documented in this encounter Additional Health Concerns Assessment Noted Time PHQ-9 Depression Total Score: 10 023 10:47 AM EDT documented as of this encounter Care Teams Wide Area Network Engineer Relationship Specialty Start Date End Date Brittany Saldana MD [address] [place] [address] PCP - General Family Medicine 05/08/20 Darrin Hernandez FNP [address] [place] [address] Nurse Practitioner Family Medicine 10/19/23 documented as of this encounter
--- OUTSIDE RECORDS SUMMARY | 2025-03-26 13:49 | XMS_ITS | Clinical Summary ---
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 PCP - General Family Medicine 05/08/20 Darrin Hernandez FNP [address] [place], [place] Nurse Practitioner Family Medicine 10/19/23
--- OUTSIDE RECORDS SUMMARY | 2025-03-26 13:49 | XMS_ITS | Encounter Summary ---
Author Organization [employer] Address [address] [place] [address] [address] [place] [address] Care Team Providers Care Cashier Tube Room Name Role Phone Brittany Saldana MD Primary Care Provider + Darrin Hernandez Unavailable Unavailable Encounter Details Date Type Department Care Team (Latest Contact Info) Description 03/21/2025 Travel Social History Tobacco Use Types Packs/Day [...] 05/15/2025 1:00 PM EDT Office Visit [facility] [address] [place] [address] Brandon Caballero MD [address] [place] [address] 06/19/2025 11:45 AM EDT Office Visit [address] [address] Brittany Saldana MD [address] [place] [address] documented as of this encounter Goals Goal Patient Goal Type Associated Problems Recent Progress Patient-Stated? Author Blood Pressure < 140/90 Blood Pressure 145/82(2024 1:22 PM EDT) No Venkatesh Skinner, PharmD Decrease the frequency of unwanted emotions so that daily functioning is improved General No aJnae Walden, CORTES Hemoglobin A1c < 7 Result Component 5.1( 11:19 AM EST) No Venkatesh Skinner PharmD documented as of this encounter Visit Diagnoses Not on filedocumented in this encounter Additional Health Concerns Assessment Noted Time PHQ-9 Depression Total Score: 2 12/07/19 25 10:39 AM EST documented as of this encounter Care Teams Cashier Tube Room Relationship Specialty Start Date End Date Brittany Saldana MD [address] [place] [address] PCP - General Family Medicine 05/08/20 Darrin Hernandez FNP [address] [place] [address] Nurse Practitioner Family Medicine 10/19/23 documented as of this encounter
--- OUTSIDE RECORDS SUMMARY | 2025-03-26 13:49 | XMS_ITS | Encounter Summary ---
Author Organization [employer] Address [address] [place] [address] Care Team Providers Care Hospice Team Lead Name Role Phone Brittany Saldana MD Primary Care Provider + Darrin Hernandez Unavailable Unavailable Reason for Visit * Reason Onset Date Comments Med Refill 01/09/2025 Encounter Details Date Type Department Care Team (Late st Contact Info) Description 01/09/[address] [facility] [address] [place], [place] [phone] Brittany Saldana MD [address] [place] [address] Social History Tobacco Use Types Packs/Day Years [...] Description 05/15/2025 1:00 PM EDT Office Visit [facility] [address] [place] [phone] Brandon Caballero MD [address] [place] [address] 06/19/2025 11:45 AM EDT Office Visit [address] [address] Brittany Saldana MD [address] [place] [address] documented as of this encounter Goals Goal [...] documented as of this encounter Care Teams Hospice Team Lead Relationship Specialty Start Date End Date Brittany Saldana MD [address] [place] [address] PCP - General Family Medicine 05/08/20 Darrin Hernandez FNP [address] [place] [address] Nurse Practitioner Family Medicine 10/19/23 documented as of this encounter
--- OUTSIDE RECORDS SUMMARY | 2025-03-26 13:49 | XMS_ITS | Encounter Summary ---
Author Organization [employer] Address [address] [place] [address] 7 [place] [address] Care Team Providers Care Woven Paper Hat Mender Name Role Phone Brittany Saldana MD Primary Care Provider + Darrin Hernandez Unavailable Unavailable Encounter Details Date Type Department Care Team (Late st Contact Info) Description 10/10/2024 Abstract [facility] [address] [place] [address] Brittany Saldana MD [address] [place] [address] Social History Tobacco Use Types Packs/Day Years [...] Description 05/15/2025 1:00 PM EDT Office Visit [facility] [address] [place] [address] Brandon Caballero MD [address] [place] [address] 06/19/2025 11:45 AM EDT Office Visit [facility] [address] [place] [address] Brittany Saldana MD [address] [place] [address] [phone] documented as of this encounter Goals Goal [...] documented as of this encounter Care Teams Woven Paper Hat Mender Relationship Specialty Start Date End Date Brittany Saldana MD [address] [place] [address] PCP - General Family Medicine 05/08/20 Darrin Hernandez FNP [address] [place] [address] Nurse Practitioner Family Medicine 10/19/23 documented as of this encounter
--- OUTSIDE RECORDS SUMMARY | 2025-03-26 13:49 | XMS_ITS | Encounter Summary ---
Author Organization [employer] Address [address] [place], [place] [address] [place] [address] Care Team Providers Care Perch Machine Inspector Name Role Phone Brittany Saldana MD Primary Care Provider + Darrin Hernandez Unavailable Unavailable Reason for Visit * Reason Onset Date Comments Durable Medical Equipment 02/15/2023 Encounter Details Date Type Department Care Team (Late st Contact Info) Description 02/15/2023 Telephone [facility] [address] [place] [address] Brittany Saldana MD [address] [place] [address] Durable Medical Equipment Social History Tobacco Use [...] Miscellaneous Notes * Telephone Encounter - Lisa Colon - 02/15/2023 11:55 AM EDT Order sent [...] Description 05/15/2025 1:00 PM EDT Office Visit [facility] [address] [place] [address] Brandon Caballero MD [address] [place] [address] 06/19/2025 11:45 AM EDT Office Visit [facility] [address] [place] [address] Brittany Saldana MD [address] [place] [address] documented as of this encounter Visit Diagnoses Not on filedocumented in this encounter Additional Health Concerns Assessment Noted Time PHQ-9 Depression Total Score: 10 023 10:47 AM EDT documented as of this encounter Care Teams Perch Machine Inspector Relationship Specialty Start Date End Date Brittany Saldana MD [address] [place] [address] PCP - General Family Medicine 05/08/20 Darrin Hernandez FNP [address] [place] [phone] Nurse Practitioner Family Medicine 10/19/23 documented as of this encounter
--- OUTSIDE RECORDS SUMMARY | 2025-03-26 13:49 | XMS_ITS | Encounter Summary ---
Author Organization [employer] Address [address] [place] [address] Care Team Providers Care Testing Machine Operator Name Role Phone Brittany Saldana MD Primary Care Provider + Darrin Hernandez Unavailable Unavailable Reason for Visit * Reason Onset Date Comments Durable Medical Equipment 01/05/2023 Encounter Details Date Type Department Care Team (Late st Contact Info) Description 01/05/2023 Telephone [facility] [address] [place] [address] Brittany Saldana MD [address] [place] [address] Durable Medical Equipment Social History Tobacco Use [...] is accepted there. * Telephone Encounter - Dextermina Haris Barrera - 01/05/2023 12:12 PM EST Tc from pt requesting New script for Diabetic Shoes, pt claims that previous script that was sent pt insurance is not taken there. If any questions please contact pt at [phone] documented in this encounter Plan of Treatment Upcoming Encounters Date Type Department Care Team (Late st Contact Info) Description 05/15/2025 1:00 PM EDT Office Visit [facility] [address] [place] [address] Brandon Caballero MD [address] [place] [phone] 06/19/2025 11:45 AM EDT Office Visit [facility] [address] [place] [address] Brittany Saldana MD [address] [place] [address] documented as of this encounter Visit Diagnoses Not on filedocumented in this encounter Additional Health Concerns Assessment Noted Time PHQ-9 Depression Total Score: 4 12/31/19 23 10:56 AM EST documented as of this encounter Care Teams Testing Machine Operator Relationship Specialty Start Date End Date Brittany Saldana MD [address] [place] [address] PCP - General Family Medicine 05/08/20 Darrin Hernandez FNP [address] [place] [address] Nurse Practitioner Family Medicine 10/19/23 documented as of this encounter
[2025-03-26 16:47] LABS: Anion Gap 11 (12-20); Blood Urea Nitrogen 18 mg/dL (9-16); Calcium 8.7 mg/dL (8.4-10.2); Carbon Dioxide 33 mmol/L (22-29); Chloride 102 mmol/L (96-108); Estimated Glomerular Filt Rate > 60; Glucose Random 92 mg/dL (60-115); Potassium 3.6 mmol/L (3.3-5.1); Sodium 142 mmol/L (135-145)
[2025-03-26 17:08] LABS: Free T4 (Free Thyroxine) 1.21 ng/dL (0.71-1.85); T4 Thyroxine 7.4 ug/dL (4.5-12.0)
[2025-03-27 04:29] LABS: Triiodothyronine T3 Free 2.3 pg/mL (2.3-4.2); Triiodothyronine T3 Total 62 ng/dL (76-181)
== END 2025-03-26 13:31 | disposition home or self-care (01) ==
LOC: HO.HHCL 13:30
PROVIDERS: Visit Provider Internal Medicine
DX: R04.2 Hemoptysis (principal)
CPT/HCPCS: 36415; 80048; 84436; 84439; 84443; 84480; 84481

== ENCOUNTER 2025-04-06 08:56 | Outpatient (REF) | payer OTHER, SELFPAY ==
--- OUTSIDE RECORDS SUMMARY | 2025-04-06 09:17 | XMS_ITS | Encounter Summary ---
Author Organization [employer] Address [address] [place] [address] Care Team Providers Care Sas Developer Analyst Name Role Phone Brittany Saldana MD Primary Care Provider + Darrin Hernandez Unavailable Unavailable Reason for Visit * Reason Onset Date Comments Referral 09/02/2023 Encounter Details Date Type Department Care Team (Late st Contact Info) Description 09/02/2023 Telephone [facility] [address] [place] [address] Brittany Saldana MD [address] [place] [address] Referral Social History Tobacco Use Types Packs/Day [...] from pt requesting a new referral for Clinical Liaison Specialist, pt stated needs a hearing test. documented in this encounter Plan of Treatment Upcoming Encounters Date Type Department Care Team (Late st Contact Info) Description 05/15/2025 1:00 PM EDT Office Visit [facility] [address] [place] [address] Brandon Caballero MD [address] [place] [address] 06/19/2025 11:45 AM EDT Office Visit [facility] [address] [place] [address] [phone] Brittany Saldana MD [address] [place] [address] documented as of this encounter Visit Diagnoses Diagnosis 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, type 1 (von Recklinghausen's disease) (CMS/HCC) Neurofibromatosis, Type 1 (von Recklinghausen's disease) documented in this encounter Additional Health Concerns Assessment Noted Time PHQ-9 Depression Total Score: 7 07/06/20 23 2:07 PM EDT documented as of this encounter Care Teams Sas Developer Analyst Relationship Specialty Start Date End Date Brittany Saldana MD [address] [place] [address] PCP - General Family Medicine 05/08/20 Darrin Hernandez FNP [address] [place] [address] Nurse Practitioner Family Medicine 10/19/23 documented as of this encounter
[2025-04-06 11:14] LABS: MANUAL DIFF FLAG NO
[2025-04-06 11:34] LABS: Basophils Absolute Auto 0.1 X10*3/uL (0.0-0.2); Basophils Percent Auto 0.7 % (0-2); Eosinophils Absolute Auto 0.1 X10*3/uL (0.0-0.4); Eosinophils Percent Auto 1.5 % (0-4); Hemoglobin 14.4 g/dl (14.0-18.0); Imm Gran Abs Auto 0.03 X10*3/uL (0.00-0.03); Imm Gran Pct Auto 0.4 % (0.0-0.4); Lymphocytes Absolute Auto 1.6 X10*3/uL (1.2-4.9); Lymphocytes Percent Auto 19.3 % (20-40); Mean Corpuscular HGB Conc 34.3 g/dl (31.0-36.0); Mean Corpuscular Hemoglobin 31.5 pg (27.0-33.0); Mean Corpuscular Volume 91.9 fL (80.0-98.0); Mean Platelet Volume 10.2 fL (9.4-12.4); Monocytes Absolute Auto 0.8 X10*3/uL (0.1-1.2); Neutrophils Absolute Auto 5.7 x10*3/uL (2.0-8.3); Neutrophils Percent Auto 68.1 % (45-73); Platelet Count 313 X10*3/uL (160-400); Red Blood Count 4.57 X10*6/uL (4.60-5.80); Red Cell Distribution Width 14.5 % (11.0-16.0); White Blood Count 8.4 X10*3/uL (4.8-10.8)
[2025-04-06 11:47] LABS: Estimated Average Glucose 97 mg/dL
[2025-04-06 11:52] LABS: Alanine Aminotransferase 10 U/L (0-40); Albumin Level 3.6 g/dL (3.5-5.0); Alkaline Phosphatase 58 U/L (39-117); Anion Gap 10 (12-20); Aspartate Amino Transferase 21 U/L (5-37); Bilirubin Total 1.2 mg/dL (0.0-1.0); Blood Urea Nitrogen 18 mg/dL (9-16); C Reactive Protein 0.19 mg/dL (< or = 0.50); Calcium 9.2 mg/dL (8.4-10.2); Carbon Dioxide 31 mmol/L (22-29); Chloride 105 mmol/L (96-108); Cholesterol 124 mg/dL (<200); Estimated Glomerular Filt Rate 56; Glucose Random 84 mg/dL (60-115); HDL Cholesterol 37 mg/dL (>40); Iron 86 mcg/dL (45-160); LDL Cholesterol Calculated 75 mg/dL (<100); Percent Iron Saturation 42 % (15-50); Potassium 3.8 mmol/L (3.3-5.1); Sodium 142 mmol/L (135-145); Total Iron Binding Capacity 204 mcg/dL (228-428); Total Protein 5.7 g/dL (6.5-8.0); Triglycerides 63 mg/dL (<150); Unsaturated Iron Binding 118 ug/dL
[2025-04-06 12:06] LABS: T4 Thyroxine 7.8 ug/dL (4.5-12.0)
[2025-04-06 12:22] LABS: Folate 15.8 ng/mL (> or = 4.0); Vitamin B12 1633 pg/mL (200-900)
[2025-04-06 12:25] LABS: Ferritin 119 ng/mL (20-250); Thyroid Stimulating Hormone 1.75 uIU/mL (0.32-4.0); Vitamin D 25-OH Total 64.2 ng/mL (>30)
[2025-04-06 12:45] LABS: Insulin 4 uU/mL (2-29)
[2025-04-07 06:43] LABS: Triiodothyronine T3 Free 2.7 pg/mL (2.3-4.2); Triiodothyronine T3 Total 66 ng/dL (76-181)
[2025-04-09 19:58] LABS: Zinc 72 mcg/dL (60-130)
[2025-04-10 16:18] LABS: Vitamin A 44 mcg/dL (38-98)
[2025-04-13 04:13] LABS: Vitamin B1 276 nmol/L (8-30)
== END 2025-04-06 08:57 | disposition home or self-care (01) ==
LOC: HO.HHCL 08:56
PROVIDERS: Physician Assistant Surgical; Visit Provider Internal Medicine
DX: E87.6 Hypokalemia (principal); R53.82 Chronic fatigue, unspecified; I10 Essential (primary) hypertension; E78.5 Hyperlipidemia, unspecified; E11.9 Type 2 diabetes mellitus without complications; Z98.84 Bariatric surgery status
CPT/HCPCS: 36415; 80053; 80061; 82306; 82607; 82728; 82746; 83036; 83525; 83540; 84425; 84436; 84439; 84443; 84480; 84481; 84590; 84630; 85025; 86140

== ENCOUNTER 2025-04-10 10:13 | Outpatient (REF) | payer OTHER, SELFPAY ==
--- OUTSIDE RECORDS SUMMARY | 2025-04-10 10:57 | XMS_ITS | Patient Health Record ---
Author Organization [employer] Address [address] [facility] [address] [place] [address] Support Name Relationship Address Phone Dane Calles Guarantor Unknown [phone] Allergies Allergen (clinical drug ingredient) Drug/Non Drug [...] Disorder due to type 2 diabetes mellitus (168568139) Type 2 diabetes mellitus with unspecified complications (E11.8) Active confirmed Problem Morbid obesity (disorder) (937418181) Morbid (severe) obesity due to excess calories (E66.01) Active confirmed Problem Mixed hyperlipidemia (972540191) Mixed hyperlipidemia (E78.2) Active confirmed Problem Alcohol dependence (97568489) Alcohol dependence, uncomplicated (F10.20) Active confirmed Problem Mild recurrent major depression (30604556) Major depressive disorder, recurrent, mild (F33.0) Active confirmed Problem 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, intractable, 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) Active confirmed Problem 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, intractable, without status epilepticus (G40.219) Active confirmed Problem Obstructive sleep apnea syndrome (disorder) (18247350) Obstructive sleep apnea (adult) (pediatric) (G47.33) Active confirmed Problem Essential hypertension (62572933) Essential (primary) hypertension (I10) Active confirmed Problem Gastro-esophageal reflux disease without esophagitis (152978923) Gastro-esophageal reflux disease without esophagitis (K21.9) Active confirmed Problem Neurofibromatosis (27976572) Neurofibromatosis , 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) Active confirmed Problem Somnolence (52403729) Somnolence (R40.0) Active confirmed Problem Attention deficit hyperactivity disorder, predominantly inattentive type (disorder) (99406896) Attention and concentration deficit (R41.840) Active confirmed Problem Body mass index 40+ - severely obese (494134905) Body mass index (BMI) 40.0-44.9, adult (Z68.41) Active confirmed Problem Lower urinary tract symptoms due to benign prostatic hypertrophy (00047533993849) Benign prostatic hyperplasia with lower urinary tract symptoms (N40.1) Active confirmed Problem Morbid obesity (297639277) Morbid obesity (E66.01) Active confirmed Plan Of Treatment No Information Medical (General) History Medical History History ICD Code hypertension, benign acid reflux BPH see Urology Attention deficit disorder Neurofibromatosis complex partial seizure disorder Surgical History Surgery Date(Month/Year) Umblical hernia repair 2004 Tonsellectomy Cyst in throat removed
[2025-04-10 11:25] LABS: Anion Gap 11 (12-20); Blood Urea Nitrogen 17 mg/dL (9-16); Carbon Dioxide 33 mmol/L (22-29); Chloride 104 mmol/L (96-108); Estimated Glomerular Filt Rate > 60; Glucose Random 87 mg/dL (60-115); Potassium 4.6 mmol/L (3.3-5.1); Sodium 143 mmol/L (135-145)
[2025-04-10 11:58] LABS: Microalbum/Creatinine Ratio Ur 22.9 ug/mg cr (<30)
[2025-04-10 12:00] LABS: Alanine Aminotransferase 14 U/L (0-40); Albumin Level 3.9 g/dL (3.5-5.0); Alkaline Phosphatase 53 U/L (39-117); Anion Gap 11 (12-20); Aspartate Amino Transferase 16 U/L (5-37); Bilirubin Direct 0.4 mg/dL (0.0-0.5); Blood Urea Nitrogen 17 mg/dL (9-16); Calcium 9.1 mg/dL (8.4-10.2); Carbon Dioxide 32 mmol/L (22-29); Chloride 105 mmol/L (96-108); Estimated Glomerular Filt Rate > 60; Glucose Random 85 mg/dL (60-115); Potassium 4.1 mmol/L (3.3-5.1); Sodium 144 mmol/L (135-145); Total Protein 6.2 g/dL (6.5-8.0)
== END 2025-04-10 10:14 | disposition home or self-care (01) ==
LOC: HO.HHCL 10:13
PROVIDERS: Nurse Practitioner; Visit Provider Internal Medicine
DX: E11.9 Type 2 diabetes mellitus without complications (principal); H91.21 Sudden idiopathic hearing loss, right ear; I10 Essential (primary) hypertension; R07.9 Chest pain, unspecified; I49.9 Cardiac arrhythmia, unspecified; I50.30 Unspecified diastolic (congestive) heart failure; E78.5 Hyperlipidemia, unspecified
CPT/HCPCS: 36415; 80048; 80076; 82043; 82570; 93005; 99212

== ENCOUNTER 2025-04-10 14:42 | Outpatient (AMB) | payer OTHER, SELFPAY ==
--- NOTE | 2025-04-10 14:50 | MHC.OFFVIS ---
Vital Signs 04/10/25 14:52 BP 140/72 H Blood Pressure Location Rt brachial Position Sitting Pulse 43 L Pulse Source Pulse Oximeter Pulse Oximetry (%) 98 Oxygen Delivery Method Room Air Intake Visit Reasons: 4 wk f/up labs Allergies Penicillins Allergy (Verified 04/10/25 14:50) Shortness of Breath Medication List - Last Reconciled 04/10/25 by Zane Mendez NP albuterol sulfate 90 mcg/actuation 2 puffs inhalation Q6H PRN atorvastatin 20 mg PO BEDTIME bupropion HCl XL 300 mg PO DAILY calcium carbonate-vitamin D3 600 mg-10 mcg (400 unit) (Calcium with Vitamin D) 1 tab PO BID clonidine HCl 0.1 mg PO BEDTIME cyanocobalamin (vitamin B-12) 1,000 mcg PO DAILY docusate sodium 100 mg PO BID PRN felodipine ER 10 mg PO DAILY finasteride 5 mg PO BEDTIME 90 days fluticasone propionate 50 mcg/actuation 1 spray intranasal DAILY gabapentin 300 mg PO TID lancets ([employer]Touch Delica Plus Lancet) As directed lisinopril 10 mg PO DAILY meclizine 25 mg PO TID PRN melatonin 5 mg PO BEDTIME methylphenidate HCl ER 36 mg PO QAM metoprolol succinate ER 25 mg PO DAILY metoprolol succinate ER 25 mg PO DAILY multivitamin 1 tab PO DAILY spironolactone 12.5 mg (1/2 x 25 mg) PO DAILY tadalafil 20 mg PO ONCE PRN 30 days terazosin 5 mg PO BEDTIME thiamine HCl (vitamin B1) 100 mg PO DAILY trazodone 200 mg PO BEDTIME HPI Comments Details: This is a 70-year-old male patient coming in for a follow-up visit. Patient with a history of diabetes, hyperlipidemia, hypertension, and PACs. Patient was seen in the office for concerns of AFib and palpitations however his Holter monitor showed that patient had frequent supraventricular ectopies and no AFib. Patient's blood pressure was also elevated last visit and therefore was started on low-dose metoprolol and spironolactone. Today, patient reports since his last office visit, patient has had an episode of chest tightness at rest with shortness of breath lasting couple of minutes. Since then patient states he has not had anymore episodes and is currently doing well with no symptoms including exertional chest pain, shortness of breath, palpitations, dizziness, orthopnea, PND, leg edema, presyncope, or syncope. Patient does report that his blood pressures has been elevated at home. Patient affirms his compliance with all his medications. [facility] Medical History Diabetes Atrial fibrillation Osteoarthritis DJD (degenerative joint disease) Von Recklinghausen disease GERD (gastroesophageal reflux disease) Anxiety Hyperlipidemia Insomnia Sleep apnea with use of continuous positive airway pressure (CPAP) Obesity Depression ADD (attention deficit disorder) Colon polyp Microscopic hematuria HTN (hypertension) AA (alcohol abuse) BPH (benign prostatic hyperplasia) Surgical History History of esophagogastroduodenoscopy (EGD) S/P laparoscopic sleeve gastrectomy Hx of tonsillectomy H/O bilateral inguinal hernia repair H/O umbilical hernia repair H/O colonoscopy Family History Mother Throat cancer Paternal Aunt Colon cancer Maternal Grandfather No problems noted. Social History Household Members: Family Housing: House Are you a primary careers adviser to a significant other at home: No Do you presently have visiting nurse or other home services: No Alcohol intake: former Patient Tobacco Use Status: Former Tobacco user service: No Physical Exam Vital Signs: Last Vital Signs Pulse 43 L 04/10/25 14:52 BP 140/72 H 04/10/25 14:52 Pulse Ox 98 04/10/25 14:52 Oxygen Delivery Method Room Air 04/10/25 14:52 Const General: cooperative, healthy appearing, comfortable and no acute distress Orientation/consciousness: patient oriented x3 HEENT Head: Yes normal to inspection Neck Neck: Yes normal visual inspection, Yes trachea midline and Yes supple Chest Chest palpation & inspection: normal inspection of the chest Resp Effort & Inspection: normal respiratory effort Auscultation: clear to auscultation bilaterally, no crackles, no rales, no rhonchi and no wheezes Cardio Jugular venous distension: no JVD Palpation: normal PMI Rate: bradycardic Rhythm: regular rhythm Heart sounds: S1 normal heart sound present, S2 normal heart sound present, no click, no gallops, no murmurs and no rubs Peripheral pulses: Peripheral pulses 2+ throughout GI Inspection: Yes normal to inspection Palpation (GI): Soft to palpation Auscultation: normal bowel sounds Skin General skin exam: no rashes or lesions noted Neuro General: patient oriented x3 Extrem General: Yes normal to inspection, No no pedal edema and No calf tenderness Psych Appearance: grossly normal Mental Status: mental status grossly normal Speech and movement: Normal speech and movement present Office Procedures EKG Details: EKG today showed sinus bradycardia with PACs, rate 52 beats per minute, [place], [place]. [address]-Mbkdrizcjucfkifco, Complete Assessment & Plan Assessment & Plan (1) Chest pain: Code(s): R07.9 - Chest pain, unspecified Category: Medical Plan: Reports of isolated episode of nonexertional chest pain. Atypical in nature however, given his multiple risk factors, we will proceed with a myocardial perfusion study. Patient may not be able to walk on the treadmill as he uses a cane for mobility, hence Lexiscan. (2) Cardiac arrhythmia: Code(s): I49.9 - Cardiac arrhythmia, unspecified Category: Medical Plan: 01/31/2025-patient underwent a 30 day cardiac event monitor which showed underlying sinus rhythm with an average heart rate of 64 beats per minute, frequent supraventricular ectopy with a burden of 5.1%, rare ventricular ectopy. Patient's symptoms associated with the ectopies. Patient continues to note that his watch device does alert him of possible AFib with elevated heart rate at times. Patient's EKG today showed sinus bradycardia. We will reduce his metoprolol dose to 12.5 given his bradycardia. Patient's recorded strips does show PACs and no AFib. At this time continue current regimen. In case of prolonged palpitations, may need to consider repeat even monitor. (3) (HFpEF) heart failure with preserved ejection fraction: Code(s): I50.30 - Unspecified diastolic (congestive) heart failure Category: Medical Plan: 01/31/2025-echo study showed normal EF between 65-70% with a grade 2 diastolic dysfunction, severely dilated left atrium and moderately dilated right atrium, moderate aortic regurgitation, mild mitral regurgitation, mildly elevated right atrial pressures, small pericardial effusion near the left ventricle. We will repeat echo in 3 months' time. Clinically stable and euvolemic. Patient's potassium is stable on the spironolactone. Patient states that he has been taking 25 mg spironolactone. We will continue to monitor his labs periodically. Signs and symptoms of heart failure reviewed in detail with the patient. Advised low-salt diet, daily weight monitoring, and fluid restriction between 1.5-2 L daily. (4) HTN (hypertension): Code(s): I10 - Essential (primary) hypertension Category: Medical Plan: Blood pressure today is elevated, and he reports that his home readings are also consistently high in the systolic 140s. We will increase his lisinopril to 20 mg daily. Advised monitoring blood pressures at home and keeping a log of it to bring to the next visit. Ideally, goal of less than 130/80. We will have patient come back in 1 month for a nurse visit to check blood pressures. (5) Hyperlipidemia: Code(s): E78.5 - Hyperlipidemia, unspecified Category: Medical Plan: LDL back in March 08 within goal at 75. Continue statin therapy. Ideally, LDL goal less than 70. (6) Diabetes: Code(s): E11.9 - Type 2 diabetes mellitus without complications Category: Medical Plan: Continue diabetes management. Currently controlled with diet. Ideally, A1c goal less than 7%. Advised heart healthy diet, regular exercise, med compliance, and management of vascular risk factors. We will follow up with the patient in 3 months. In the interim, patient will call the office with any concerns or change in symptoms. This note was generated using voice recognition software. While every effort has been made to ensure accuracy and proper excelsior machine tender, there may be occasional errors that could affect the content or meaning of the described symptoms. Orders: Orders CA lexiscan stress w girish Today R07.9 - Chest pain, unspecified NM cardiolite stress test Today R07.9 - Chest pain, unspecified AMB EKG-In Office Today I49.9 - Cardiac arrhythmia, unspecified Medications: New lisinopril 20 mg PO DAILY 90 tabs 3RF Changed From spironolactone 12.5 mg (1/2 x 25 mg) PO DAILY 90 tabs 0RF To spironolactone 25 mg PO DAILY 90 tabs 3RF From metoprolol succinate ER 25 mg PO DAILY 30 tabs 0RF To metoprolol succinate ER 12.5 mg (1/2 x 25 mg) PO DAILY 60 tabs 3RF Discontinued metoprolol succinate ER Discontinued Reason: Duplicate 25 mg PO DAILY 90 tabs 3RF Coding Level of Care Code Est Pt Level 4 (25507) Complex EM visit Add On G2211 Diagnoses Chest pain R07.9 Cardiac arrhythmia I49.9 (HFpEF) heart failure with preserved ejection fraction I50.30 HTN (hypertension) I10 Hyperlipidemia E78.5 Diabetes E11.9 CPT Codes EKG - CPT: 25812-Lszyfznwlqdcuvnap, Complete ([id number]) Time Spent (min) 32 Comment Time spent in reviewing the chart, test results, assessment, counseling and documentation.
[2025-04-10 14:52] VITALS: BP 140/72; PULSE 43; O2SAT 98
== END 2025-04-10 15:37 | disposition home or self-care (01) ==
LOC: HO.HCS 14:43
PROVIDERS: PCP Internal Medicine
DX: R07.9 Chest pain, unspecified (principal); I49.9 Cardiac arrhythmia, unspecified; I50.30 Unspecified diastolic (congestive) heart failure; I10 Essential (primary) hypertension; E78.5 Hyperlipidemia, unspecified; E11.9 Type 2 diabetes mellitus without complications
CPT/HCPCS: 93010; 99214; G2211

== ENCOUNTER 2025-04-20 08:27 | Outpatient (REF) | payer OTHER, SELFPAY ==
--- OUTSIDE RECORDS SUMMARY | 2025-04-20 08:36 | XMS_ITS | Encounter Summary ---
Author Organization [employer] Address [address] [place] [address] Care Team Providers Care Dental Therapist Name Role Phone Brittany Saldana MD Primary Care Provider + Darrin Hernandez Unavailable Unavailable Reason for Visit * Reason Onset Date Comments Referral 09/02/2023 Encounter Details Date Type Department Care Team (Late st Contact Info) Description 09/02/2023 Telephone [facility] [address] [place] [address] Brittany Saldana MD [address] [place] [address] Referral Social History Tobacco Use Types Packs/Day [...] from pt requesting a new referral for Ingot Caster Specialist, pt stated needs a hearing test. documented in this encounter Plan of Treatment Upcoming Encounters Date Type Department Care Team (Late st Contact Info) Description 05/15/2025 1:00 PM EDT Office Visit [facility] [address] [place] [id number] Brandon Caballero MD [address] [place] [address] 06/19/2025 11:45 AM EDT Office Visit [facility] [address] [place] [address] [phone] Brittany Saldana MD [address] [place] [address] documented as of this encounter Visit Diagnoses Diagnosis 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, type 1 (von Recklinghausen's disease) (CMS/HCC) Neurofibromatosis, Type 1 (von Recklinghausen's disease) documented in this encounter Additional Health Concerns Assessment Noted Time PHQ-9 Depression Total Score: 7 07/06/20 23 2:07 PM EDT documented as of this encounter Care Teams Dental Therapist Relationship Specialty Start Date End Date Brittany Saldana MD [address] [place] [address] PCP - General Family Medicine 05/08/20 Darrin Hernandez FNP [address] [place] [address] Nurse Practitioner Family Medicine 10/19/23 documented as of this encounter
[2025-04-20 11:58] LABS: Free T4 (Free Thyroxine) 1.11 ng/dL (0.71-1.85); T4 Thyroxine 6.7 ug/dL (4.5-12.0); Thyroid Stimulating Hormone 1.13 uIU/mL (0.32-4.0)
[2025-04-20 12:45] LABS: Alanine Aminotransferase 16 U/L (0-40); Albumin Level 3.9 g/dL (3.5-5.0); Alkaline Phosphatase 50 U/L (39-117); Anion Gap 10 (12-20); Aspartate Amino Transferase 19 U/L (5-37); Bilirubin Direct 0.4 mg/dL (0.0-0.5); Bilirubin Total 1.1 mg/dL (0.0-1.0); Blood Urea Nitrogen 23 mg/dL (9-16); Calcium 9.8 mg/dL (8.4-10.2); Carbon Dioxide 30 mmol/L (22-29); Chloride 109 mmol/L (96-108); Estimated Glomerular Filt Rate > 60; Glucose Random 77 mg/dL (60-115); Potassium 4.2 mmol/L (3.3-5.1); Sodium 145 mmol/L (135-145); Total Protein 6.2 g/dL (6.5-8.0)
[2025-04-21 04:29] LABS: Triiodothyronine T3 Free 2.6 pg/mL (2.3-4.2); Triiodothyronine T3 Total 62 ng/dL (76-181)
== END 2025-04-20 08:28 | disposition home or self-care (01) ==
LOC: HO.HHCL 08:27
PROVIDERS: Internal Medicine
DX: I10 Essential (primary) hypertension (principal); R79.89 Other specified abnormal findings of blood chemistry; R53.82 Chronic fatigue, unspecified
CPT/HCPCS: 36415; 80048; 80076; 84436; 84439; 84443; 84480; 84481

== ENCOUNTER 2025-04-30 12:20 | Outpatient (REF) | payer OTHER, SELFPAY ==
--- NOTE | ~2025-04-30 | CT_ITS ---
EXAMINATION: CT CHEST WITHOUT CONTRAST CLINICAL INFORMATION: Hemoptysis COMPARISON: X-ray of December 28, 2023 TECHNIQUE: Multidetector volumetric CT imaging of the chest was done. Axial MIP volume rendering provided. Sagittal and coronal reformatted images were obtained. This CT examination was performed using dose optimization techniques as appropriate, variously including the following: *Automated exposure control *Adjustment of mA and/or kV according to patient size (this includes techniques or standardized protocols for targeted exams where dose is matched to indication/reason for exam; i.e. extremities or head) *Use of iterative reconstruction technique DLP: 238 mGY*cm FINDINGS: LUNGS: Subtle groundglass densities are present in the central lungs, more in the upper lobes. There is a small focal airspace opacity in the lingula, centrally. MEDIASTINUM: There is small pericardial effusion. CORONARY ARTERY CALCIFICATION: None visualized on this study. PLEURA: There is no pleural effusion. No pleural mass or thickening. AXILLA: No lymphadenopathy. UPPER ABDOMEN: Right adrenal gland is mildly prominent in size. There is an 18 mm diameter parapelvic cyst in the lateral left kidney. Surgical changes from gastric bypass surgery are noted. OSSEOUS STRUCTURES: T2-3 demonstrates moderately severe disc space narrowing with endplate sclerosis and osteophytes. There is also degenerative endplate irregularity. There is also moderate disc space narrowing and vacuum phenomenon in the mid to upper thoracic spine. CT/CT chest wo IV con IMPRESSION: There are subtle groundglass densities in the upper lobes and focal airspace opacity in the central lingula. This could represent pneumonia, atypical pneumonia, drug reaction, or other hypersensitivity. Possible nodular hyperplasia of the right adrenal gland. Small pericardial effusion Fleischner guidelines were followed. Electronically signed by: Glenn Lockhart MD 04/30/2025 02:25 PM EDT
== END 2025-04-30 12:21 | disposition home or self-care (01) ==
LOC: HO.CT 12:20
PROVIDERS: PCP Internal Medicine; Visit Provider Internal Medicine
DX: R04.2 Hemoptysis (principal)
CPT/HCPCS: 71250

== ENCOUNTER → 2025-04-30 12:31 | Outpatient (BNV) | payer OTHER, SELFPAY | PROVIDERS: PCP Internal Medicine; Visit Provider Radiology Diagnostic Radiology | DX: I31.39 Other pericardial effusion (noninflammatory) (principal); R91.8 Other nonspecific abnormal finding of lung field | CPT/HCPCS: 71250 ==

== ENCOUNTER 2025-05-08 08:42 | Outpatient (REF) | payer OTHER, SELFPAY ==
--- OUTSIDE RECORDS SUMMARY | 2025-05-08 09:03 | XMS_ITS | Encounter Summary ---
Author Organization [employer] Address [address] [place] [address] Care Team Providers Care Machine Lead Burner Name Role Phone Brittany Saldana MD Primary Care Provider + Darrin Hernandez Unavailable Unavailable Reason for Visit * Reason Onset Date Comments Referral 09/02/2023 Encounter Details Date Type Department Care Team (Late st Contact Info) Description 09/02/2023 Telephone [facility]INE [address] [place] [address] Brittany Saldana MD [address] [place] [address] Referral Social History Tobacco Use Types Packs/Day [...] from pt requesting a new referral for Supervisor Pullet Farm Specialist, pt stated needs a hearing test. documented in this encounter Plan of Treatment Upcoming Encounters Date Type Department Care Team ([facility] st Contact Info) Description 05/15/2025 1:00 PM EDT Office Visit [facility] [address] [place] [phone] Brandon Caballero MD [address] [place] [address] 06/19/2025 11:45 AM EDT Office Visit [facility] [address] [place] [address] Brittany Saldana MD [address] [place] [address] 09/13/2025 1:00 PM EDT Office Visit [facility] [address] [place] [address] [phone] Renetta Mitchell, OD [address] [place] [address] documented as of this encounter Visit Diagnoses Diagnosis 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, type 1 (von Recklinghausen's disease) ([facility]) Neurofibromatosis, Type 1 (von Recklinghausen's disease) documented in this encounter Additional Health Concerns Assessment Noted Time PHQ-9 Depression Total Score: 7 07/06/20 23 2:07 PM EDT documented as of this encounter Care Teams Machine Lead Burner Relationship Specialty Start Date End Date Brittany Saldana MD [address] [place], [place] [phone] PCP - General Family Medicine 05/08/20 Darrin Hernandez FNP [address] [place] [address] Nurse Practitioner Family Medicine 10/19/23 documented as of this encounter
[2025-05-08 11:39] LABS: B Type Natriuretic Peptide 435 pg/mL (<100)
== END 2025-05-08 08:43 | disposition home or self-care (01) ==
LOC: HO.HHCL 08:42
PROVIDERS: PCP Internal Medicine; Visit Provider Internal Medicine
DX: R06.09 Other forms of dyspnea (principal)
CPT/HCPCS: 36415; 83880

== ENCOUNTER → 2025-06-05 07:55 | Outpatient (REF) | payer OTHER, SELFPAY ==
--- NOTE | ~2025-06-05 | NM_ITS ---
EXERCISE MYOCARDIAL PERFUSION STUDY INDICATION: Chest pain to evaluate for myocardial ischemia TECHNIQUE: The patient was brought in for an exercise perfusion study on 06/05/2025. Patient performed exercise as per Rc protocol and was injected 25 mCi of sestamibi once target heart rate was achieved. Images were obtained using the SPECT gamma camera interlaced with the gating device. Images were obtained in supine position. Resting perfusion study was performed on 06/08/2025. Patient was administered 25 mCi of sestamibi intravenously at rest. Images were then obtained in supine position. Images obtained without without CT attenuation. Total DLP 88 mGy-cm. Images were processed with the software and compared side to side in short axis, horizontal long axis and vertical long axis views. FINDINGS: Raw images were reviewed The stress perfusion study showed nonattenuated images show mildly reduced uptake in the basal and mid inferior as well as inferoapical wall and moderately reduced uptake in the apical wall of the LV myocardium. There is also mildly to moderately reduced uptake and inferolateral and lateral wall of the LV myocardium attenuated corrected images show normal uptake in the inferior and inferolateral wall with mildly reduced uptake in the apex of the LV myocardium.. The gated study shows low normal LV systolic function with calculated LVEF of 50%. LV cavity is moderately to severely dilated in size. The gated study shows reduced wall thickening and contraction of basal inferior segments. Resting study shows attenuated corrected images show no significant change in perfusion pattern compared to stress perfusion study. Nontender images show improved uptake in the inferior wall with no change in perfusion pattern in the inferolateral and lateral wall of the LV myocardium.. Gating at rest was not performed. The findings are consistent with equivocal findings although attenuated corrected images show no clear reversible defect suggestive of ischemia.. NM/NM cardiolite stress test IMPRESSION: 1. Myocardial perfusion imaging study shows no clear reversible ischemia on attenuated corrected images. 2. Gated LVEF is 50%. 3. Transient ischemic dilatation present and with stress LV cavity is moderately to severely dilated. EKG revealed negative for ischemia. Electronically signed by: Roman Olivia MD 06/08/2025 02:07 PM EDT
--- NOTE | 2025-06-05 07:57 | CA_ITS ---
Acquisition Time: 2025-06-05 08:19:49 Total Exercise Time: 00:02:20 Test Indications: Abnormal ECG HF Medications: SEE H&P Protocol: LEXISCAN Max HR: 76 BPM 50% of Pred: 152 BPM Max BP: 152/68 mmHG Max Work Load: 1.7 METS Pharmacological stress test with Lexiscan while pt walks slow on treadmill at 1.3mph, without any symptoms reported, without any arrythmias- sinus arrythmia at baseline, with normotensive response to injection. Nondiagnostic EKG for ischemia. In recovery, pt continued to feel well. Nuclear images pending. Test reviewed with Dr. Frost. Referred By: Zane Mendez Electronically Signed By: Zane Mendez
--- OUTSIDE RECORDS SUMMARY | 2025-06-05 07:57 | XMS_ITS | Encounter Summary ---
Author Organization [employer] Address [address] [place] [address] Care Team Providers Care Halftone Operator Name Role Phone Brittany Saldana MD Primary Care Provider + Darrin Hernandez Unavailable Unavailable Reason for Visit * Reason Onset Date Comments Referral 09/02/2023 Encounter Details Date Type Department Care Team (Late st Contact Info) Description 09/02/2023 Telephone [facility]INE [address] [place] [address] Brittany Saldana MD [address] [place] [address] Referral Social History Tobacco Use Types Packs/Day [...] from pt requesting a new referral for Assistant Spa Manager Specialist, pt stated needs a hearing test. documented in this encounter Plan of Treatment Upcoming Encounters Date Type Department Care Team ([facility] st Contact Info) Description 06/19/2025 11:45 AM EDT Office Visit [facility] MEDICINE [address] [place] [address] Brittany Saldana MD [address] [place] [address] 08/07/2025 1:15 PM EDT Office Visit [facility]INE [address] [place] [address] Brandon Caballero MD [address] [place] [address] 09/13/2025 1:00 PM EDT Office Visit [facility] OPTOM[facility] [address] [place] [address] [phone] Renetta Mitchell, OD [address] [place] [address] documented as of this encounter Visit Diagnoses Diagnosis 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, type 1 (von Recklinghausen's disease) ([facility]) Neurofibromatosis, Type 1 (von Recklinghausen's disease) documented in this encounter Additional Health Concerns Assessment Noted Time PHQ-9 Depression Total Score: 7 07/06/20 23 2:07 PM EDT documented as of this encounter Care Teams Halftone Operator Relationship Specialty Start Date End Date Brittany Saldana MD [address] [place], [place] [phone] PCP - General Family Medicine 05/08/20 Darrin Hernandez FNP [address] [place] [address] Nurse Practitioner Family Medicine 10/19/23 documented as of this encounter
--- OUTSIDE RECORDS SUMMARY | 2025-06-05 07:58 | XMS_ITS | Clinical Summary ---
Author Organization [facility] Address [address] [place] [address] Care Team Providers Care Debt And Budget Counselor Name Role Phone Selvin Payan MD Primary Care Provider [phone] Allergies Active Allergy Reactions Criticality Noted Date [...] 1 - PCV) 2022 Influenza Vaccine (#1) 2025 RSV Adult > 60+ Yrs or Pregn ant (1 - 1-dose 75+ series) 01/20/2032 Hepatitis B Vaccines Aged Out No long er eligible based on patient's age to complete this topic RSV Ped < 20 months Aged Out No longe r eligible based on patient's age to complete this topic Care Teams Debt And Budget Counselor Relationship Specialty Start Date End Date Selvin Payan MD [address] [place] [address] PCP - General Internal Medicine 03/08/18
--- OUTSIDE RECORDS SUMMARY | 2025-06-05 07:58 | XMS_ITS | Patient Health Record ---
Author Organization [employer] Address [address] [facility] [address] [place] [address] Support Name Relationship Address Phone Dane Calles Guarantor Unknown [phone] Allergies Allergen (clinical drug ingredient) Drug/Non Drug Allergy documented on EMR Reaction Allergy Type Onset Date Status penicillin G Penicillin G Potassium anaphylaxis Drug Allergy Active Reason For Referral No Information Medications Medication SIG (Take, Route, Frequency, Duration) Notes Start Date End Date Status Adderall XR 20 MG 1 capsule Orally twi ce a day; Duration: 56 days 10/28/2021 Active Cialis 5 MG 1 tablet Orally Once a day Active OXcarbazepine 150 MG 1 tablet Orally Twi ce a day Active Lisinopril 40 MG 1 tablet Orally Once a day; Duration: 90 days Active ProAir HFA 108 (90 Base) MCG/ACT 1 puff as needed Inhalation every 4 hrs; Duration: 30 days Active Lasix 20 MG 1 tablet Orally Once a day; Duration: 90 days 03/12/2021 Active Escitalopram Oxalate 20 MG TAKE 1 TABLET BY MOUTH EVERY DAY; Duration: 90 Active Felodipine ER 10 MG TAKE 1 TABLET BY PHILOMENA TH EVERY DAY; Duration: 90 Active Omeprazole 40 MG 1 capsule [...] Disorder due to type 2 diabetes mellitus (913475629) Type 2 diabetes mellitus with unspecified complications (E11.8) Active confirmed Problem Morbid obesity (disorder) (498425762) Morbid (severe) obesity due to excess calories (E66.01) Active confirmed Problem Mixed hyperlipidemia (569862204) Mixed hyperlipidemia (E78.2) Active confirmed Problem Alcohol dependence (20863306) Alcohol dependence, uncomplicated (F10.20) Active confirmed Problem Mild recurrent major depression (54941253) Major depressive disorder, recurrent, mild (F33.0) Active confirmed Problem 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, intractable, 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) Active confirmed Problem 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, intractable, without status epilepticus (G40.219) Active confirmed Problem Obstructive sleep apnea syndrome (disorder) (69520930) Obstructive sleep apnea (adult) (pediatric) (G47.33) Active confirmed Problem Essential hypertension (54051875) Essential (primary) hypertension (I10) Active confirmed Problem Gastro-esophageal reflux disease without esophagitis (006852244) Gastro-esophageal reflux disease without esophagitis (K21.9) Active confirmed Problem Neurofibromatosis (89671795) Neurofibromatosis , 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) Active confirmed Problem Somnolence (63033982) Somnolence (R40.0) Active confirmed Problem Attention deficit hyperactivity disorder, predominantly inattentive type (disorder) (84135626) Attention and concentration deficit (R41.840) Active confirmed Problem Body mass index 40+ - severely obese (589356460) Body mass index (BMI) 40.0-44.9, adult (Z68.41) Active confirmed Problem Lower urinary tract symptoms due to benign prostatic hypertrophy (83399802856604) Benign prostatic hyperplasia with lower urinary tract symptoms (N40.1) Active confirmed Problem Morbid obesity (351880120) Morbid obesity (E66.01) Active confirmed Plan Of Treatment No Information Medical (General) History Medical History History ICD Code hypertension, benign acid reflux BPH see Urology Attention deficit disorder Neurofibromatosis complex partial seizure disorder Surgical History Surgery Date(Month/Year) Umblical hernia repair 2004 Tonsellectomy Cyst in throat removed
--- OUTSIDE RECORDS SUMMARY | 2025-06-05 07:58 | XMS_ITS | Clinical Summary ---
Author Organization [facility] it Address [address] [place] [address] Care Team Providers Care Miller Head Name Role Phone Samantha Faye MD Primary Care Provider [phone] Encounters Date Type Department Care Team Description 05/09/2025 Telephone [facility] [address] [address] scan from Last 3 Months Social History Tobacco Use Types Packs/Day Years Used Date Smoking Tobacco: Never Assessed Sex and Gender Information Value Date Recorded Sex Assigned at Not on file Legal Sex Male 5:12 AM EST Gender Identity Not on file Sexual Orientation Not on file Plan of Treatment Upcoming Encounters Date Type Department Care Team (Late st Contact Info) Description 07/03/2025 10:30 AM EDT Office Visit [facility] 175 [facility] [address] [place] [address] Sena Mobley MD [address] [address] Health Maintenance Due Date Last Done Comments DTaP,Tdap,and Td Vaccines (1 - Tdap) 01/20/1976 Pneumococcal Vaccine: 50+ Ye ars (1 of 1 - PCV) 2007 Zoster Vaccines (1 of 2) 2007 COVID-19 Vaccine (2023-2 5 season) 2024 Depression Screening 11/15/2024 Abdominal Aortic Aneurysm (A AA) Screen 04/02/2025 Cholesterol Screening (Lipid Panel) 04/02/2025 Colorectal Cancer Screening: Colonoscopy 04/02/2025 Falls Risk Assessment 04/02/2025 Hepatitis C Screening 04/02/2025 Social Influencers of Health Screening 04/02/2025 Influenza Vaccine (#1) 2025 RSV Immunization Adult Patie nts (1 [...] on patient's age to complete this topic Procedures Procedure Name Priority Date/Time Associated Diagnosis Comments EXTERNAL CT REPORT 04/30/2025 from Last 3 Months Results * External CT Report (04/30/2025) Anatomical Region Laterality Modality Computed Tomogra phy us Provider [facility] IMG CT PROCEDURES Final Result from Last 3 Months Insurance [facility] Member Subscriber Plan / Payer (Ef fective 2023-Present) Name:Dane Calles Relation to Subscriber:Self Name:Dane Calles Payer ID:[id number] Group ID:[id number] Type:Not on file Address: [place] [address] [address] [address] Care Teams Miller Head Relationship Specialty Start Date End Date Samantha Faye MD [address] [place] [address] [facility] - General 05/08/21
== END ==
LOC: HO.CARD 07:55
PROVIDERS: PCP Internal Medicine
DX: R00.2 Palpitations (principal); R07.9 Chest pain, unspecified; I50.30 Unspecified diastolic (congestive) heart failure; I48.91 Unspecified atrial fibrillation; Z88.0 Allergy status to penicillin
CPT/HCPCS: 78452; 93017; A9500; J0280; J2785

== ENCOUNTER → 2025-06-05 07:57 | Outpatient (BNV) | payer OTHER, SELFPAY | PROVIDERS: PCP Internal Medicine | DX: R94.31 Abnormal electrocardiogram [ECG] [EKG] (principal) | CPT/HCPCS: 78452; 93016; 93018 ==

== ENCOUNTER 2025-06-20 14:30 | Outpatient (AMB) | payer OTHER, SELFPAY ==
[2025-06-20 08:58] VITALS: BMI 26.1
--- NOTE | 2025-06-20 08:58 | A.OFFVIS_ITS ---
VS Expanded 06/20/25 08:58 Height 5 ft 3 in Weight 147 lb 8 oz BMI 26.1 Body Fat % 23.9 Fat Free Mass 112.4 Visceral Fat Rating 9 Body Water % 54.9 Muscle Mass/Score 106.8 Basal Metabolic Rate/Score 1,471 Intake Visit Reasons: tV PO LSG 03/16/24 Allergies Penicillins Allergy (Verified 04/10/25 14:50) Shortness of Breath HPI Comments Details: This?a?70?yo male who is s/p LSG without hiatal hernia repair on?03/16/2024. Presents for 1 year 3 months post op visit. Weight today is 147.8 pounds, with a BMI of 26.1. There has been a 74.6 pound weight loss,(initial weight 222.4 pounds) since starting the program on 12/21/2023 reflecting a 33.5 % total body weight loss and a weight loss of 42.7 pounds since surgery (operative weight 190.5 pounds) reflecting a 22.4 % TBWL since surgery. No complaints of nausea, emesis, abdominal pain or reflux. Reports infrequent but normal bowel movements every 2 days and uses stool softeners regularly. He states that things are going well. He has not been able to afford the shakes and is eating 3 meals per day. He is taking Certavit Sr antioxident MVI once daily. Found to have thyroid disease and he is referred to endocrinology. He also a brief period of SOB and CP and he has followed up with cards and stress test was normal. Overall feeling well and very happy with the results of his procedure Present meal plan includes: 3 meals 4 forks protein and 4 forks veggies Drinking 48 oz fluids ? Exercise routine includes: 1.5 mile walk daily [facility] Medical History Diabetes Atrial fibrillation Osteoarthritis DJD (degenerative joint disease) Von Recklinghausen disease GERD (gastroesophageal reflux disease) Anxiety Hyperlipidemia Insomnia Sleep apnea with use of continuous positive airway pressure (CPAP) Obesity Depression ADD (attention deficit disorder) Colon polyp Microscopic hematuria HTN (hypertension) AA (alcohol abuse) BPH (benign prostatic hyperplasia) Surgical History History of esophagogastroduodenoscopy (EGD) S/P laparoscopic sleeve gastrectomy Hx of tonsillectomy H/O bilateral inguinal hernia repair H/O umbilical hernia repair H/O colonoscopy Family History Mother Throat cancer Paternal Aunt Colon cancer Maternal Grandfather No problems noted. Social History Household Members: Family Housing: House Are you a primary home care consultant to a significant other at home: No Do you presently have visiting nurse or other home services: No Alcohol intake: former Patient Tobacco Use Status: Former Tobacco user service: No Physical Exam Vital Signs: BMI result Body Mass Index 26.1 Telehealth Telehealth Telehealth Platform: Telephone Location of provider rendering services: practice address Location of patient: address on file Patient Identification confirmed using: Name, : Yes Telehealth method: voice only Patient verbally consented to treatment: Yes Patient verbally consented to billing insurance company: Yes Patient informed of any privacy concerns related to visit: Yes Minutes spent on Phone/Video with Pt.: 15 Assessment & Plan Assessment & Plan (1) S/P laparoscopic sleeve gastrectomy: Code(s): Z98.84 - Bariatric surgery status Category: Surgical Plan: Overall doing well. Some fluctuation in his weight that seems to be related to his underlying thyroid function problem which he is seeing endocrinology. He will continue his meal plan and increase his walking as the weather cools. Continues exercise at his day program 6 days per week. RTC 3 months
--- OUTSIDE RECORDS SUMMARY | 2025-06-20 15:12 | XMS_ITS | Encounter Summary ---
Author Organization [employer] Address [address] [place] [address] Care Team Providers Care Market President Name Role Phone Brittany Saldana MD Primary Care Provider + Darrin Hernandez Unavailable Unavailable Reason for Visit * Reason Onset Date Comments Referral 09/02/2023 Encounter Details Date Type Department Care Team (Late st Contact Info) Description 09/02/2023 Telephone [facility] [address] [place] [address] Brittany Saldana MD [address] [place] [address] Referral Social History Tobacco Use Types Packs/Day [...] from pt requesting a new referral for Oven Press Tender Specialist, pt stated needs a hearing test. documented in this encounter Plan of Treatment Upcoming Encounters Date Type Department Care Team ([facility] st Contact Info) Description 08/07/2025 1:15 PM EDT Office Visit [facility] [address] [place] [address] Brandon Caballero MD [address] [place] [address] 08/22/2025 11:15 AM EDT Office Visit [facility] [address] [place] [address] Brittany Saldana MD [address] [place] [address] 09/13/2025 1:00 PM EDT Office Visit [facility] [address] [place] [address] [phone] Renetta Mitchell, OD [address] [place] [address] documented as of this encounter Visit Diagnoses Diagnosis 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, type 1 (von Recklinghausen's disease) ([facility]) Neurofibromatosis, Type 1 (von Recklinghausen's disease) documented in this encounter Additional Health Concerns Assessment Noted Time PHQ-9 Depression Total Score: 7 07/06/20 23 2:07 PM EDT documented as of this encounter Care Teams Market President Relationship Specialty Start Date End Date Brittany Saldana MD [address] [place], [place] [phone] PCP - General Family Medicine 05/08/20 Darrin Hernandez FNP [address] [place] [address] Nurse Practitioner Family Medicine 10/19/23 documented as of this encounter
--- OUTSIDE RECORDS SUMMARY | 2025-06-20 15:12 | XMS_ITS | Clinical Summary ---
Author Organization [facility] it Address [address] [place] [address] Care Team Providers Care Tableman Name Role Phone Samantha Faye MD Primary Care Provider [phone] Encounters Date Type Department Care Team Description 05/09/2025 Telephone [facility] [address] [address] scan [...] Description 07/03/2025 10:30 AM EDT Office Visit [facility] 175 [facility] [address] [place] [address] Sena Mobley MD [address] [address] Health Maintenance Due Date Last Done Comments [...] Final Result from Last 3 Months Insurance [facility] Member Subscriber Plan / Payer (Ef fective 2023-Present) Name:Dane Calles Relation to Subscriber:Self Name:Dane Calles Payer ID:[id number] Group ID:[id number] Type:Not on file Address: [place] [address] [address] [id number] Care Teams Tableman Relationship Specialty Start Date End Date Samantha Faye MD [address] [place] [address] [facility] - General 05/08/21
--- OUTSIDE RECORDS SUMMARY | 2025-06-20 15:12 | XMS_ITS | Patient Health Record ---
Author Organization [employer] [facility] Address [address] [facility] [address] [place] [address] Support Name Relationship Address Phone Dane Calles Guarantor Unknown [phone] Allergies Allergen (clinical drug ingredient) Drug/Non Drug [...] Disorder due to type 2 diabetes mellitus (799295079) Type 2 diabetes mellitus with unspecified complications (E11.8) Active confirmed Problem Morbid obesity (disorder) (969729460) Morbid (severe) obesity due to excess calories (E66.01) Active confirmed Problem Mixed hyperlipidemia (477754367) Mixed hyperlipidemia (E78.2) Active confirmed Problem Alcohol dependence (50225716) Alcohol dependence, uncomplicated (F10.20) Active confirmed Problem Mild recurrent major depression (31091541) Major depressive disorder, recurrent, mild (F33.0) Active confirmed Problem 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, intractable, 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) Active confirmed Problem 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, intractable, without status epilepticus (G40.219) Active confirmed Problem Obstructive sleep apnea syndrome (disorder) (94932957) Obstructive sleep apnea (adult) (pediatric) (G47.33) Active confirmed Problem Essential hypertension (85051852) Essential (primary) hypertension (I10) Active confirmed Problem Gastro-esophageal reflux disease without esophagitis (758605941) Gastro-esophageal reflux disease without esophagitis (K21.9) Active confirmed Problem Neurofibromatosis (63581184) Neurofibromatosis , 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) Active confirmed Problem Somnolence (38938354) Somnolence (R40.0) Active confirmed Problem Attention deficit hyperactivity disorder, predominantly inattentive type (disorder) (12517823) Attention and concentration deficit (R41.840) Active confirmed Problem Body mass index 40+ - severely obese (246697677) Body mass index (BMI) 40.0-44.9, adult (Z68.41) Active confirmed Problem Lower urinary tract symptoms due to benign prostatic hypertrophy (35405739408536) Benign prostatic hyperplasia with lower urinary tract symptoms (N40.1) Active confirmed Problem Morbid obesity (550713760) Morbid obesity (E66.01) Active confirmed Plan Of Treatment No Information Medical (General) History Medical History History ICD Code hypertension, benign acid reflux BPH see Urology Attention deficit disorder Neurofibromatosis complex partial seizure disorder Surgical History Surgery Date(Month/Year) Umblical hernia repair 2004 Tonsellectomy Cyst in throat removed
--- OUTSIDE RECORDS SUMMARY | 2025-06-20 15:12 | XMS_ITS | Clinical Summary ---
Author Organization [facility] Address [address] [place] [address] Care Team Providers Care Hi Ranger Operator Name Role Phone Selvin Payan MD Primary Care Provider Allergies Active Allergy Reactions Criticality Noted Date [...] age to complete this topic Care Teams Hi Ranger Operator Relationship Specialty Start Date End Date Selvin Payan MD [address] [place] [address] PCP - General Internal Medicine 03/08/18
== END 2025-06-20 15:09 | disposition home or self-care (01) ==
LOC: HO.HBS 14:45
PROVIDERS: PCP Internal Medicine; Visit Provider Physician Assistant Surgical
DX: E66.3 Overweight (principal); Z68.26 Body mass index [BMI] 26.0-26.9, adult; Z90.3 Acquired absence of stomach [part of]; Z98.84 Bariatric surgery status
CPT/HCPCS: 99213

== ENCOUNTER 2025-07-12 14:10 | Outpatient (AMB) | payer OTHER, SELFPAY ==
--- OUTSIDE RECORDS SUMMARY | 2025-07-11 10:00 | XMS_ITS | Encounter Summary ---
Author Organization [employer] Address [address] [place] [address] [address] [place] [address] Care Team Providers Care Turner In Name Role Phone Brittany Saldana MD Primary Care Provider + Darrin Hernandez Unavailable Unavailable Encounter Details Date Type Department Care Team (Latest Contact Info) Description 07/11/2025 10:00 AM EDT Clinical Support [facility] [address] [place] [address] Janae Walden, CORTES Alcohol use disorder, severe, in sustained remission (CMS/HCC) Social History Tobacco Use Types Packs/Day [...] as of this encounter Progress Notes * Janae Walden RN - 07/11/2025 10:00 AM EDT LAST GBAT VISIT: 06/27/2025 Patient presents for Group-Based Opioid Treatment for AUD Reviewed the group goals, expectations and policies Consented to the group treatment options Actively participated in the group discussion with the topic of: Overcoming Negative Self-Talk Following staff present at the visit: Physician, Bartenders, and Paper Grader Opportunities provided to address individual medical/medication/BH concerns States doing well without cravings or relapse THIS VISIT: 07/11/2025 Patient presents for Group-Based Opioid Treatment for AUD Reviewed the group goals, expectations and policies Consented to the group treatment options Actively participated in the group discussion with the topic of: Changes Following staff present at the visit: Bartenders, RN and Paper Grader Opportunities provided to address individual medical/medication/BH concerns States doing well without cravings or relapse This information has been disclosed to you [...] Care Team (Late st Contact Info) Description 07/23/2025 11:30 AM EDT Clinical Support [facility] [address] [place] [address] 08/07/2025 1:15 PM EDT Office Visit [address] [address] Brandon Caballero MD [address] [place] [address] 08/22/2025 11:15 AM EDT Office Visit [facility] [address] [place] [address] Brittany Saldana MD [address] [place] [address] 09/13/2025 1:00 PM EDT Office Visit [facility] [address] [place] [address] Renetta Mitchell OD [address] [place] [address] documented as of this encounter Goals Goal Patient Goal Type Associated Problems Recent Progress Patient-Stated? Author Blood Pressure < 140/90 Blood Pressure 140/68(2024 11:48 AM EDT) No Venkatesh Skinner, [place] Decrease the frequency of unwanted emotions so that daily functioning is improved General On track( 025 4:48 PM EDT) No Janae Walden RN Hemoglobin A1c < 7 Result Component 5(04/06/2025 9:03 AM EDT) No SkinnerVenkatesh PharmD documented as of this encounter Visit Diagnoses Diagnosis Alcohol use disorder, severe, in sustained remission (CMS/HCC) documented in this encounter Additional Health Concerns Assessment Noted Time PHQ-9 Depression Total Score: 2 12/07/19 25 10:39 AM EST documented as of this encounter Care Teams Turner In Relationship Specialty Start Date End Date Brittany Saldana MD [address] [place] [address] PCP - General Family Medicine 05/08/20 Darrin Hernandez FNP [address] [place] [address] Nurse Practitioner Family Medicine 10/19/23 documented as of this encounter
[2025-07-12 14:42] VITALS: BP 150/70; PULSE 44; BMI 26.0
--- NOTE | 2025-07-12 14:42 | MHC.OFFVIS ---
Vital Signs 07/12/25 14:42 Height 5 ft 3 in Weight 146 lb 13.246 oz BMI 26.0 BP 150/70 H Blood Pressure Location Lt brachial Position Sitting Pulse 44 L Pulse Source Pulse Oximeter Intake Visit Reasons: 3 mth s/p nils Intake Note: 3 mth f/up-nils Ground Defence Officer Required: No Accompanied by: Self / Same As Patient Allergies Penicillins Allergy (Verified 04/10/25 14:50) Shortness of Breath Medication List - Last Reconciled 07/12/25 by Zane Mendez NP albuterol sulfate 90 mcg/actuation 2 puffs inhalation Q6H PRN atorvastatin 20 mg PO BEDTIME bupropion HCl XL 300 mg PO DAILY calcium carbonate-vitamin D3 600 mg-10 mcg (400 unit) (Calcium with Vitamin D) 1 tab PO BID clonidine HCl 0.1 mg PO BEDTIME cyanocobalamin (vitamin B-12) 1,000 mcg PO DAILY docusate sodium 100 mg PO BID PRN felodipine ER 10 mg PO DAILY finasteride 5 mg PO BEDTIME 90 days fluticasone propionate 50 mcg/actuation 1 spray intranasal DAILY gabapentin 300 mg PO TID lancets (OneTouch Delica Plus Lancet) As directed lisinopril 20 mg PO DAILY meclizine 25 mg PO TID PRN melatonin 5 mg PO BEDTIME methylphenidate HCl ER 36 mg PO QAM metoprolol succinate ER 12.5 mg (1/2 x 25 mg) PO DAILY multivitamin 1 tab PO DAILY spironolactone 25 mg PO DAILY tadalafil 20 mg PO ONCE PRN 30 days terazosin 5 mg PO BEDTIME thiamine HCl (vitamin B1) 100 mg PO DAILY trazodone 200 mg PO BEDTIME HPI Comments Details: This is a 70-year-old male patient coming in for a follow-up visit. Patient with a history of diabetes, hyperlipidemia, hypertension, and PACs. Patient was in the office previously seen for concerns of AFib and palpitations with a Holter monitor showed PACs. Patient also reported his watch showing AFib but upon review was noted to be PACs again. Patient previously had reported chest tightness for which patient underwent a myocardial perfusion study. Patient's blood pressures were also elevated for which patient was started on spironolactone. And given his sinus bradycardia, metoprolol was reduced to 12.5 mg daily. Today, patient reports feeling well overall without any exertional chest pain, shortness of breath, palpitations, dizziness, orthopnea, PND, leg edema, presyncope or syncope. However, patient does report that his blood pressures has been running high lately on the current regimen. [facility] Medical History Diabetes Atrial fibrillation Osteoarthritis DJD (degenerative joint disease) Von Recklinghausen disease GERD (gastroesophageal reflux disease) Anxiety Hyperlipidemia Insomnia Sleep apnea with use of continuous positive airway pressure (CPAP) Obesity Depression ADD (attention deficit disorder) Colon polyp Microscopic hematuria HTN (hypertension) AA (alcohol abuse) BPH (benign prostatic hyperplasia) Surgical History History of esophagogastroduodenoscopy (EGD) S/P laparoscopic sleeve gastrectomy Hx of tonsillectomy H/O bilateral inguinal hernia repair H/O umbilical hernia repair H/O colonoscopy Family History Mother Throat cancer Paternal Aunt Colon cancer Maternal Grandfather No problems noted. Sister Heart attack Stented coronary artery Hx of cardiac cath Hypertrophic obstructive cardiomyopathy (HOCM) Social History Household Members: Family Housing: House Are you a primary healthcare specialist to a significant other at home: No Do you presently have visiting nurse or other home services: No Alcohol intake: former Patient Tobacco Use Status: Former Tobacco user service: No Review of Systems Const Denies chills, Denies fatigue, Denies fever(s), Denies frequent falls, Denies weakness, Denies weight gain and Denies weight loss ENT Denies dizziness Card Denies chest pain, Denies leg edema, Denies lightheadedness, Denies palpitations, Denies dyspnea and Denies dyspnea on exertion Resp Denies cough, Denies dyspnea and Denies dyspnea on exertion GI Denies hematochezia Musc Denies abnormal gait, Denies muscle weakness, Denies numbness, Denies radiating pain into limb and Denies tingling Neuro Denies abnormal gait, Denies dizziness, Denies frequent falls, Denies numbness, Denies tingling and Denies weakness Endo Denies fatigue and Denies palpitations Physical Exam Vital Signs: Last Vital Signs Pulse 44 L 07/12/25 14:42 BP 150/70 H 07/12/25 14:42 BMI result Body Mass Index 26.0 Const General: cooperative, healthy appearing, comfortable and no acute distress Orientation/consciousness: patient oriented x3 HEENT Head: Yes normal to inspection Neck Neck: Yes normal visual inspection, Yes trachea midline and Yes supple Chest Chest palpation & inspection: normal inspection of the chest Resp Effort & Inspection: normal respiratory effort Auscultation: clear to auscultation bilaterally, no crackles, no rales, no rhonchi and no wheezes Cardio Jugular venous distension: no JVD Palpation: normal PMI Rate: bradycardic Rhythm: regular rhythm Heart sounds: S1 normal heart sound present, S2 normal heart sound present, no click, no gallops, no murmurs and no rubs Peripheral pulses: Peripheral pulses 2+ throughout GI Inspection: Yes normal to inspection Palpation (GI): Soft to palpation Auscultation: normal bowel sounds Skin General skin exam: no rashes or lesions noted Neuro General: patient oriented x3 Extrem General: Yes normal to inspection, No no pedal edema and No calf tenderness Psych Appearance: grossly normal Mental Status: mental status grossly normal Speech and movement: Normal speech and movement present Assessment & Plan Assessment & Plan (1) Chest pain: Code(s): R07.9 - Chest pain, unspecified Category: Medical Plan: 06/05/2025-patient underwent a myocardial perfusion study for reports of chest discomfort that showed no ischemia and no transient ischemic dilation but a moderately to severely dilated LV. On the report it says transient ischemic dilation is present however reviewed with Dr. Olivia and this is noted to be a typo. Given resolution of symptoms and above finding, no further indication for testing at this point. (2) HTN (hypertension): Code(s): I10 - Essential (primary) hypertension Category: Medical Plan: Patient's blood pressure is elevated again today and he states that blood pressures at home have also been elevated with an average systolic number of in the 140s. Previously we increase his lisinopril and added spironolactone however today his blood pressure being elevated, we will add a 4th agent hydralazine. Patient to continue with his felodipine as well. Advised monitoring blood pressures at home and keeping a log of it to bring to the next visit. Ideally, goal of less than 130/80. We will have patient come back in 1 month for a nurse visit to check blood pressures. (3) Cardiac arrhythmia: Code(s): I49.9 - Cardiac arrhythmia, unspecified Category: Medical Plan: 01/31/2025-patient underwent a 30 day cardiac event monitor which showed underlying sinus rhythm with an average heart rate of 64 beats per minute, frequent supraventricular ectopy with a burden of 5.1%, rare ventricular ectopy. Patient's symptoms associated with the ectopies. Patient's EKG shows sinus bradycardia last visit for which the metoprolol was reduced however patient continues to be bradycardic and therefore we will stop the metoprolol. (4) (HFpEF) heart failure with preserved ejection fraction: Code(s): I50.30 - Unspecified diastolic (congestive) heart failure Category: Medical Plan: 01/31/2025-echo study showed normal EF between 65-70% with a grade 2 diastolic dysfunction, severely dilated left atrium and moderately dilated right atrium, moderate aortic regurgitation, mild mitral regurgitation, mildly elevated right atrial pressures, small pericardial effusion near the left ventricle. We will repeat echo in 3 months' time. Clinically stable and euvolemic. Signs and symptoms of heart failure reviewed in detail with the patient. Advised low-salt diet, daily weight monitoring, and fluid restriction between 1.5-2 L daily. (5) Hyperlipidemia: Code(s): E78.5 - Hyperlipidemia, unspecified Category: Medical Plan: Most recent LDL at 75 , with an goal of LDL goal less than 70. Continue statin therapy. (6) Diabetes: Code(s): E11.9 - Type 2 diabetes mellitus without complications Category: Medical Plan: Continue diabetes management. Currently controlled with diet. Ideally, A1c goal less than 7%. Advised heart healthy diet, regular exercise, med compliance, and management of vascular risk factors. We will follow up with the patient in 4 months. In the interim, patient will call the office with any concerns or change in symptoms. This note was generated using voice recognition software. While every effort has been made to ensure accuracy and proper fast food fry cook, there may be occasional errors that could affect the content or meaning of the described symptoms. Medications: New hydralazine 25 mg PO TID 90 tabs 0RF Discontinued metoprolol succinate ER Discontinued Reason: Doctor's Order 12.5 mg (1/2 x 25 mg) PO DAILY 60 tabs 3RF Coding Level of Care Code Est Pt Level 4 (27694) Complex EM visit Add On G2211 Diagnoses Chest pain R07.9 HTN (hypertension) I10 Cardiac arrhythmia I49.9 (HFpEF) heart failure with preserved ejection fraction I50.30 Hyperlipidemia E78.5 Diabetes E11.9 Time Spent (min) 32 Comment Time spent in reviewing the chart, test results, assessment, counseling and documentation.
--- OUTSIDE RECORDS SUMMARY | 2025-07-12 14:54 | XMS_ITS | Encounter Summary ---
Author Organization [employer] Address [address] [place] [address] Care Team Providers Care Superintendent Transportation Name Role Phone Brittany Saldana MD Primary Care Provider + Darrin Hernandez Unavailable Unavailable Reason for Visit * Reason Onset Date Comments Med Refill 08/11/2024 Encounter Details Date Type Department Care Team (Late st Contact Info) Description 08/11/[address] [facility] MEDICINE [address] [place] [address] Brittany Saldana MD [address] [place] [address] Mild intermittent asthma without complication Social History [...] Description 07/23/2025 11:30 AM EDT Clinical Support [facility] MEDICINE [address] [place] [address] 08/07/2025 1:15 PM EDT Office Visit [facility] MEDICINE [address] [place] [address] Brandon Caballero MD [address] [place] [address] 08/22/2025 11:15 AM EDT Office Visit [facility] MEDICINE [address] [place] [address] Brittany Saldana MD [address] [place] [address] 09/13/2025 1:00 PM EDT Office Visit [facility] OPTOMETRY [address] [place] [address] Renetta Mitchell, GLEN [address] [place] [address] documented as of this encounter Goals Goal Patient Goal Type Associated Problems Recent Progress Patient-Stated? Author Blood Pressure < 140/90 Blood Pressure 140/68(2024 11:48 AM EDT) No Venkatesh Skinner PharmD Hemoglobin A1c < 7 Result Component 5(04/06/2025 9:03 AM EDT) No Venkatesh Skinner PharmD documented as of this encounter Visit Diagnoses Diagnosis Mild intermittent asthma without complication documented in this encounter Additional Health Concerns Assessment Noted Time PHQ-9 Depression Total Score: 4 03/06/20 24 2:22 PM EDT documented as of this encounter Care Teams Superintendent Transportation Relationship Specialty Start Date End Date Brittany Saldana MD [address] [place] [address] PCP - General Family Medicine 05/08/20 Darrin Hernandez FNP [address] [place] [address] Nurse Practitioner Family Medicine 10/19/23 documented as of this encounter
--- OUTSIDE RECORDS SUMMARY | 2025-07-12 14:54 | XMS_ITS | Encounter Summary ---
Author Organization [employer] Address [address] [place] [address] Care Team Providers Care Clinical Nursing Instructor Name Role Phone Brittany Saldana MD Primary Care Provider + Darrin Hernandez Unavailable Unavailable Reason for Visit * Reason Onset Date Comments Med Refill 06/19/2024 Encounter Details Date Type Department Care Team (Late st Contact Info) Description 06/19/2024 Refill [facility] MEDICINE [address] [place], [place] [phone] Brittany Saldana MD [address] [place] [address] Alcoholism (CMS/HCC); Essential (primary) hypertension Social History [...] Description 07/23/2025 11:30 AM EDT Clinical Support [facility] MEDICINE [address] [place] [address] 08/07/2025 1:15 PM EDT Office Visit [facility] MEDICINE [address] [place] [address] Brandon Caballero MD [address] [place] [address] 08/22/2025 11:15 AM EDT Office Visit [facility] MEDICINE [address] [place] [address] Brittany Saldana MD [address] [place] [address] 09/13/2025 1:00 PM EDT Office Visit [facility] OPTOMETRY [address] [place] [address] Renetta Mitchell, GLEN [address] [place] [address] documented as of this encounter Goals Goal Patient Goal Type Associated Problems Recent Progress Patient-Stated? Author Blood Pressure < 140/90 Blood Pressure 140/68(2024 11:48 AM EDT) No Venkatesh Skinner PharmD Hemoglobin A1c < 7 Result Component 5(04/06/2025 9:03 AM EDT) No Venkatesh Skinner PharmD documented as of this encounter Visit Diagnoses Diagnosis Alcoholism (CMS/[facility]) Other and unspecified alcohol dependence, unspecified drinking behavior Essential (primary) hypertension Unspecified essential hypertension documented in this encounter Additional Health Concerns Assessment Noted Time PHQ-9 Depression Total Score: 4 03/06/20 24 2:22 PM EDT documented as of this encounter Care Teams Clinical Nursing Instructor Relationship Specialty Start Date End Date Brittayn Saldana MD [address] [place] [address] PCP - General Family Medicine 05/08/20 Darrin Hernandez FNP [address] [place] [address] Nurse Practitioner Family Medicine 10/19/23 documented as of this encounter
--- OUTSIDE RECORDS SUMMARY | 2025-07-12 14:54 | XMS_ITS | Encounter Summary ---
Author Organization [employer] Address [address] [place] [address] Care Team Providers Care Manager Pmo Name Role Phone Brittany Saldana MD Primary Care Provider + Darrin Hernandez Unavailable Unavailable Reason for Visit * Reason Comments Med Refill Encounter Details Date Type Department Care Team (Late st Contact Info) Description 07/25/2024 Refill [facility] MEDICINE [address] [place] [address] Brandon Caballero MD [address] [place] [address] Type 2 diabetes mellitus without complication, without long-term current use of insulin ([facility]) Social History Tobacco Use Types Packs/Day [...] Description 07/23/2025 11:30 AM EDT Clinical Support [facility] MEDICINE [address] [place] [address] 08/07/2025 1:15 PM EDT Office Visit [facility] MEDICINE [address] [place] [address] Brandon Caballero MD [address] [place] [address] 08/22/2025 11:15 AM EDT Office Visit [facility] MEDICINE [address] [place] [address] Brittany Saldana MD [address] [place] [address] 09/13/2025 1:00 PM EDT Office Visit [facility] OPTOMETRY [address] [place] [address] Renetta Mitchell, OD [address] [place] [address] documented as of this encounter Goals Goal [...] complication, without long-term current use of insulin ([facility]) documented in this encounter Additional Health Concerns Assessment Noted Time PHQ-9 Depression Total Score: 4 03/06/20 24 2:22 PM EDT documented as of this encounter Care Teams Manager Pmo Relationship Specialty Start Date End Date Brittany Saldana MD [address] [place] [address] PCP - General Family Medicine 05/08/20 Darrin Hernandez FNP [address] [place] [address] Nurse Practitioner Family Medicine 10/19/23 documented as of this encounter
--- OUTSIDE RECORDS SUMMARY | 2025-07-12 14:54 | XMS_ITS | Encounter Summary ---
Author Organization [employer] Address [address] [place] [address] Care Team Providers Care Community Center Director Name Role Phone Brittany Saldana MD Primary Care Provider + Darrin Hernandez Unavailable Unavailable Reason for Visit * Reason Onset Date Comments Med Refill 02/08/2024 Encounter Details Date Type Department Care Team (Late st Contact Info) Description 02/08/2024 Refill [facility] [address] [place] [address] Brittany Saldana MD [address] [place] [address] Social History Tobacco Use Types Packs/Day Years [...] the past 12 months, has t he [employer], oil or water company threatened to [...] Description 07/23/2025 11:30 AM EDT Clinical Support [facility] MEDICINE [address] [place] [address] 08/07/2025 1:15 PM EDT Office Visit [facility] MEDICINE [address] [place] [address] Brandon Caballero MD [address] [place] [address] 08/22/2025 11:15 AM EDT Office Visit [facility] MEDICINE [address] [place] [address] Brittany Saldana MD [address] [place] [address] 09/13/2025 1:00 PM EDT Office Visit [facility] OPTOMETRY [address] [place] [address] Renetta Mitchell, OD [address] [place] [address] documented as of this encounter Visit Diagnoses Not on filedocumented in this encounter Additional Health Concerns Assessment Noted Time PHQ-9 Depression Total Score: 1 12/27/19 24 1:53 PM EST documented as of this encounter Care Teams Community Center Director Relationship Specialty Start Date End Date Brittany Saldana MD [address] [place] [address] PCP - General Family Medicine 05/08/20 Darrin Hernandez FNP [address] [place] [address] Nurse Practitioner Family Medicine 10/19/23 documented as of this encounter
--- OUTSIDE RECORDS SUMMARY | 2025-07-12 14:54 | XMS_ITS | Patient Health Record ---
Author Organization [employer] Address [address] [facility] [address] [place] [address] Support Name Relationship Address Phone Dane Calles Guarantor Unknown [phone] Allergies Allergen (clinical drug ingredient) Drug/Non Drug [...] Disorder due to type 2 diabetes mellitus (379047053) Type 2 diabetes mellitus with unspecified complications (E11.8) Active confirmed Problem Morbid obesity (disorder) (777896377) Morbid (severe) obesity due to excess calories (E66.01) Active confirmed Problem Mixed hyperlipidemia (400024189) Mixed hyperlipidemia (E78.2) Active confirmed Problem Alcohol dependence (06653742) Alcohol dependence, uncomplicated (F10.20) Active confirmed Problem Mild recurrent major depression (28312763) Major depressive disorder, recurrent, mild (F33.0) Active confirmed Problem 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, intractable, 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) Active confirmed Problem 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, intractable, without status epilepticus (G40.219) Active confirmed Problem Obstructive sleep apnea syndrome (disorder) (34994137) Obstructive sleep apnea (adult) (pediatric) (G47.33) Active confirmed Problem Essential hypertension (19966417) Essential (primary) hypertension (I10) Active confirmed Problem Gastro-esophageal reflux disease without esophagitis (419180254) Gastro-esophageal reflux disease without esophagitis (K21.9) Active confirmed Problem Neurofibromatosis (67823181) Neurofibromatosis , 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) Active confirmed Problem Somnolence (05656895) Somnolence (R40.0) Active confirmed Problem Attention deficit hyperactivity disorder, predominantly inattentive type (disorder) (31044818) Attention and concentration deficit (R41.840) Active confirmed Problem Body mass index 40+ - severely obese (576822292) Body mass index (BMI) 40.0-44.9, adult (Z68.41) Active confirmed Problem Lower urinary tract symptoms due to benign prostatic hypertrophy (15877629432839) Benign prostatic hyperplasia with lower urinary tract symptoms (N40.1) Active confirmed Problem Morbid obesity (561431377) Morbid obesity (E66.01) Active confirmed Plan Of Treatment No Information Medical (General) History Medical History History ICD Code hypertension, benign acid reflux BPH see Urology Attention deficit disorder Neurofibromatosis complex partial seizure disorder Surgical History Surgery Date(Month/Year) Umblical hernia repair 2004 Tonsellectomy Cyst in throat removed
--- OUTSIDE RECORDS SUMMARY | 2025-07-12 14:54 | XMS_ITS | Encounter Summary ---
Author Organization [employer] Address [address] [place] [address] Care Team Providers Care Ore Charger Name Role Phone Brittany Saldana MD Primary Care Provider + Darrin Hernandez Unavailable Unavailable Reason for Visit * Reason Onset Date Comments Durable Medical Equipment 02/17/2023 Encounter Details Date Type Department Care Team (Late st Contact Info) Description 02/17/2023 Telephone [facility] MEDICINE [address] [place] [address] Brittany Saldana MD [address] [place] [address] Durable Medical Equipment Social History Tobacco Use [...] * Telephone Encounter - Lisa Marco - 02/18/2023 11:37 AM EDT Scripts generated for providers signature * Telephone Encounter - Moni Garcia - 02/17/2023 3:04 PM EDT TC from pt requesting a walker with wheels and seat and also a medical alert button . Pt requested to be sent to [facility] . Any questions please contact pt at [phone]. documented in this encounter Plan of Treatment Upcoming Encounters Date Type Department Care Team ([facility] st Contact Info) Description 07/23/2025 11:30 AM EDT Clinical Support [facility] MEDICINE [address] [place] [address] 08/07/2025 1:15 PM EDT Office Visit [facility] MEDICINE [address] [place] [address] Brandon Caballero MD [address] [place] [address] 08/22/2025 11:15 AM EDT Office Visit [facility] MEDICINE [address] [place] [address] Brittany Saldana MD [address] [place] [address] 09/13/2025 1:00 PM EDT Office Visit [facility] OPTOMETRY [address] [place] [address] Renetta Mitchell, GLEN [address] [place] [address] documented as of this encounter Visit Diagnoses Not on filedocumented in this encounter Additional Health Concerns Assessment Noted Time PHQ-9 Depression Total Score: 10 02/11/2 023 10:47 AM EDT documented as of this encounter Care Teams Ore Charger Relationship Specialty Start Date End Date Brittany Saldana MD [address] [place] [address] PCP - General Family Medicine 05/08/20 Darrin Hernandez FNP [address] [place] [address] Nurse Practitioner Family Medicine 10/19/23 documented as of this encounter
--- OUTSIDE RECORDS SUMMARY | 2025-07-12 14:54 | XMS_ITS | Encounter Summary ---
Author Organization [employer] Address [address] [place] [address] [address] [address] Care Team Providers Care Pharmacovigilance Specialist Name Role Phone Brittany Saldana MD Primary Care Provider + Darrin Hernandez Unavailable Unavailable Encounter Details Date Type Department Care Team (Late st Contact Info) Description 10/10/2024 Abstract [facility] [address] [place] [address] Brittany Saldana MD 230 [place] [address] Social History Tobacco Use Types Packs/Day Years [...] Description 07/23/2025 11:30 AM EDT Clinical Support [facility] [address] [place] [address] 08/07/2025 1:15 PM EDT Office Visit [facility] [address] [place] [address] Brandon Caballero MD 230 [place] [address] 08/22/2025 11:15 AM EDT Office Visit [facility] [address] [place] [address] Brittany Saldana MD 230 [place] [address] 09/13/2025 1:00 PM EDT Office Visit [facility] OPTOMET[facility] [address] [place] [address] Renetta Mitchell OD [address] [place] [address] documented as of this encounter Goals Goal [...] documented as of this encounter Care Teams Pharmacovigilance Specialist Relationship Specialty Start Date End Date Brittany Saldana MD [address] [place] [address] PCP - General Family Medicine 05/08/20 Darrin Hernandez FNP [address] [place] [address] Nurse Practitioner Family Medicine 10/19/23 documented as of this encounter
--- OUTSIDE RECORDS SUMMARY | 2025-07-12 14:54 | XMS_ITS | Encounter Summary ---
Author Organization [employer] Address [address] [place] [address] 7 [place] [address] Care Team Providers Care Immigration Investigator Name Role Phone Brittany Saldana MD Primary Care Provider + Darrin Hernandez Unavailable Unavailable Reason for Visit * Reason Comments [facility] Recovery Supports Encounter Details Date Type Department Care Team (Late st Contact Info) Description 07/10/2025 Patient Outreach [facility] MED[facility]INE [address] [place] [address] Corbin Aguilar Recovery Supports Social History Tobacco Use Types [...] as of this encounter Progress Notes * Corbin Aguilar - 07/10/2025 3:59 PM EDT I met with Dane ruff. Setting: in person at [facility] Recovery Wellness Goals worked on: Social Stability Action taken/next steps: Attended alcohol and drug free activity Additional comments: Corbin Aguilar documented in this encounter Plan of Treatment Upcoming Encounters Date Type Department Care Team (Late st Contact Info) Description 07/23/2025 11:30 AM EDT Clinical Support [address] [address] 08/07/2025 1:15 PM EDT Office Visit [facility] MEDICINE [address] [place] [address] Brandon Caabllero MD [address] [place] [address] 08/22/2025 11:15 AM EDT Office Visit [address] [address] Brittany Saldana MD [address] [place] [address] 09/13/2025 1:00 PM EDT Office Visit [facility] OPTOMETRY [address] [place] [address] Renetta Mitchell, OD [address] [place] [address] documented as of this encounter Goals Goal Patient Goal Type Associated Problems Recent Progress Patient-Stated? Author Blood Pressure < 140/90 Blood Pressure 140/68(2024 11:48 AM EDT) No Venkatesh Skinner, [place] Decrease the frequency of unwanted emotions so that daily functioning is improved General On track( 025 4:48 PM EDT) No Janae Walden, CORTES Hemoglobin A1c < 7 Result Component 5(04/06/2025 9:03 AM EDT) No Venkatesh Skinner, [place] documented as of this encounter Visit Diagnoses Not on filedocumented in this encounter Additional Health Concerns Assessment Noted Time PHQ-9 Depression Total Score: 2 12/07/19 25 10:39 AM EST documented as of this encounter Care Teams Immigration Investigator Relationship Specialty Start Date End Date Brittany Saldana MD 230 [place] [address] PCP - General Family Medicine 05/08/20 Darrin Hernandez FNP [address] [place] [address] Nurse Practitioner Family Medicine 10/19/23 documented as of this encounter
--- OUTSIDE RECORDS SUMMARY | 2025-07-12 14:54 | XMS_ITS | Encounter Summary ---
Author Organization [email or web address] Address [address] [place] [address] Care Team Providers Care Gold Assayer Name Role Phone Brittany Saldana MD Primary Care Provider + Darrin Hernandez Unavailable Unavailable Reason for Visit * Reason Onset Date Comments Med Refill 05/20/2024 Encounter Details Date Type Department Care Team (Late st Contact Info) Description 05/20/2024 Refill [facility]INE 230 [place] [address] Darrin Hernandez FNP Social History Tobacco Use [...] 11:30 AM EDT Clinical Support [facility] [address] [place] [address] 08/07/2025 1:15 PM EDT Office Visit [facility] [address] [place] [address] Brandon Caballero MD [address] [place] [address] 08/22/2025 11:15 AM EDT Office Visit [facility] [address] [place] [address] Brittany Saldana MD [address] [place] [address] 09/13/2025 1:00 PM EDT Office Visit [facility] OPTOM[facility] [address] [place] [address] Renetta Mitchell OD [address] [place] [address] documented as of this encounter Goals Goal [...] documented as of this encounter Care Teams Gold Assayer Relationship Specialty Start Date End Date Brittany Saldana MD [address] [place] [address] PCP - General Family Medicine 05/08/20 Darrin Hernandez FNP [address] [place] [address] Nurse Practitioner Family Medicine 10/19/23 documented as of this encounter
--- OUTSIDE RECORDS SUMMARY | 2025-07-12 14:54 | XMS_ITS | Encounter Summary ---
Author Organization [employer] Address [address] [place] [address] Care Team Providers Care Golf Range Attendant Name Role Phone Brittany Saldana MD Primary Care Provider + Darrin Hernandez Unavailable Unavailable Reason for Visit * Reason Comments Med Refill Encounter Details Date Type Department Care Team (Late st Contact Info) Description 04/21/2024 Refill [facility] 230 [place] [address] Brittany Saldana MD 230 [place] [address] Mild intermittent asthma without complication Social History [...] Description 07/23/2025 11:30 AM EDT Clinical Support [facility] [address] [place] [address] 08/07/2025 1:15 PM EDT Office Visit [facility] [address] [place] [address] Brandon Caballero MD [address] [place] [address] 08/22/2025 11:15 AM EDT Office Visit [facility] [address] [place] [address] Brittany Saldana MD [address] [place] [address] 09/13/2025 1:00 PM EDT Office Visit [facility] OPTOMETRY [address] [place] [address] Renetta Mitchell, GLEN [address] [place] [address] documented as of this encounter Goals Goal [...] documented as of this encounter Care Teams Golf Range Attendant Relationship Specialty Start Date End Date Brittany Saldana MD [address] [place] [address] PCP - General Family Medicine 05/08/20 Darrin Hernandez FNP [address] [place] [address] Nurse Practitioner Family Medicine 10/19/23 documented as of this encounter
--- OUTSIDE RECORDS SUMMARY | 2025-07-12 14:54 | XMS_ITS | Clinical Summary ---
Author Organization [facility] Address [address] [place] [address] Care Team Providers Care Secretarial Teacher Name Role Phone Selvin Payan MD Primary Care Provider [phone] Allergies Active Allergy Reactions Criticality Noted Date [...] age to complete this topic Care Teams Secretarial Teacher Relationship Specialty Start Date End Date Selvin Payan MD [address] [place] [address] PCP - General Internal Medicine 03/08/18
--- OUTSIDE RECORDS SUMMARY | 2025-07-12 14:54 | XMS_ITS | Encounter Summary ---
Author Organization [employer] Address [address] [place] [address] Care Team Providers Care Ukrainian Folk Arts Instructor Name Role Phone Brittany Saldana MD Primary Care Provider + Darrin Hernandez Unavailable Unavailable Reason for Visit * Reason Onset Date Comments Med Refill 06/15/2024 Encounter Details Date Type Department Care Team (Late st Contact Info) Description 06/15/2024 Refill [facility] 230 [place] [address] Brittany Saldana MD [address] [place] [address] Acute insomnia Social History Tobacco Use Types [...] Description 07/23/2025 11:30 AM EDT Clinical Support [facility] [address] [place] [address] 08/07/2025 1:15 PM EDT Office Visit [facility] [address] [place] [address] Brandon Caballero MD [address] [place] [address] 08/22/2025 11:15 AM EDT Office Visit [facility] [address] [place] [address] Brittany Saldana MD [address] [place] [address] 09/13/2025 1:00 PM EDT Office Visit [facility] OPTOM[facility] [address] [place] [address] Renetta Mitchell, GLEN [address] [place] [address] documented as of this encounter Goals Goal [...] documented as of this encounter Care Teams Ukrainian Folk Arts Instructor Relationship Specialty Start Date End Date Brittany Saldana MD [address] [place] [address] PCP - General Family Medicine 05/08/20 Darrin Hernandez FNP [address] [place] [address] Nurse Practitioner Family Medicine 10/19/23 documented as of this encounter
--- OUTSIDE RECORDS SUMMARY | 2025-07-12 14:54 | XMS_ITS | Encounter Summary ---
Author Organization [employer] Address [address] [place] [address] Care Team Providers Care Award Machine Operator Name Role Phone Brittany Saldana MD Primary Care Provider + Darrin Hernandez Unavailable Unavailable Reason for Visit * Reason Onset Date Comments Med Refill 06/11/2024 Encounter Details Date Type Department Care Team (Late st Contact Info) Description 06/11/2024 Refill [facility] [address] [place] [address] Brittany Saldana MD [address] [place] [address] Social History Tobacco Use Types Packs/Day Years [...] Description 07/23/2025 11:30 AM EDT Clinical Support [facility] [address] [place] [address] 08/07/2025 1:15 PM EDT Office Visit [facility] [address] [place] [address] Brandon Caballero MD [address] [place] [address] 08/22/2025 11:15 AM EDT Office Visit [facility] [address] [place] [address] Brittany Saldana MD 230 [place] [address] 09/13/2025 1:00 PM EDT Office Visit [facility] OPTOMETRY [address] [place] [address] Renetta Mitchell, GLEN [address] [place] [address] documented as of this encounter Goals Goal [...] documented as of this encounter Care Teams Award Machine Operator Relationship Specialty Start Date End Date Brittany Saldana MD [address] [place] [address] PCP - General Family Medicine 05/08/20 Darrin Hernandez FNP [address] [place] [address] Nurse Practitioner Family Medicine 10/19/23 documented as of this encounter
--- OUTSIDE RECORDS SUMMARY | 2025-07-12 14:54 | XMS_ITS | Encounter Summary ---
Author Organization [employer] Address [address] [place] [address] Care Team Providers Care Small Products I Assembler Name Role Phone Brittany Saldana MD Primary Care Provider + Darrin Hernandez Unavailable Unavailable Reason for Visit * Reason Onset Date Comments Med Refill 04/16/2024 Encounter Details Date Type Department Care Team (Late st Contact Info) Description 04/16/2024 Refill [facility] [address] [place] [address] Darrin Hernandez FNP PTSD (post-traumatic stress disorder) [...] Description 07/23/2025 11:30 AM EDT Clinical Support [facility] [address] [place] [address] 08/07/2025 1:15 PM EDT Office Visit [facility] [address] [place] [address] Brandon Caballero MD [address] [place] [address] 08/22/2025 11:15 AM EDT Office Visit [facility] [address] [place] [address] Brittany Saldana MD 230 [place] [address] 09/13/2025 1:00 PM EDT Office Visit [facility] OPTOM[facility] [address] [place] [address] Renetta Mitchell OD [address] [place] [address] documented as of this encounter Goals Goal [...] documented as of this encounter Care Teams Small Products I Assembler Relationship Specialty Start Date End Date Brittany Saldana MD [address] [place] [address] PCP - General Family Medicine 05/08/20 Darrin Hernandez FNP [address] [place] [address] Nurse Practitioner Family Medicine 10/19/23 documented as of this encounter
--- OUTSIDE RECORDS SUMMARY | 2025-07-12 14:54 | XMS_ITS | Encounter Summary ---
Author Organization [employer] Address [address] [place] [address] Care Team Providers Care Trailer Assembler Name Role Phone Brittany Saldana MD Primary Care Provider + Darrin Hernandez Unavailable Unavailable Reason for Visit * Reason Onset Date Comments Appointment 09/10/2023 Encounter Details Date Type Department Care Team (Late st Contact Info) Description 09/10/2023 Telephone [facility] DENTAL [address] [place] [address] Misbah Kerraris [address] [place] [address] Appointment Social History Tobacco Use Types Packs/Day [...] cleaning appt. Last appt he had in [place] was deep leaning in September and the [...] 11:30 AM EDT Clinical Support [facility] MED[facility]INE [address] [place] [address] 08/07/2025 1:15 PM EDT Office Visit [facility] [address] [place] [address] Brandon Caballero MD [address] [place] [address] 08/22/2025 11:15 AM EDT Office Visit [facility] [address] [place] [address] Brittany Saldana MD [address] [place], [place] 09/13/2025 1:00 PM EDT Office Visit [facility] OPTOMETRY [address] [place] [address] Renetta Mitchell, OD [address] [place] [address] documented as of this encounter Visit Diagnoses Not on filedocumented in this encounter Additional Health Concerns Assessment Noted Time PHQ-9 Depression Total Score: 4 09/06/20 23 11:30 AM EDT documented as of this encounter Care Teams Trailer Assembler Relationship Specialty Start Date End Date Brittany Saldana MD [address] [place] [address] PCP - General Family Medicine 05/08/20 Darrin Hernandez FNP [address] [place] [address] Nurse Practitioner Family Medicine 10/19/23 documented as of this encounter
--- OUTSIDE RECORDS SUMMARY | 2025-07-12 14:54 | XMS_ITS | Encounter Summary ---
Author Organization [employer] Address [address] [place] [address] Care Team Providers Care Marketing Engineer Name Role Phone Brittany Saldana MD Primary Care Provider + Darrin Hernandez Unavailable Unavailable Encounter Details Date Type Department Care Team (Latest Contact Info) Description 08/07/2022 Abstract [facility] CONVERSIONS Dental, Provider, DDS Social [...] Description 07/23/2025 11:30 AM EDT Clinical Support [facility] MEDICINE [address] [place] [address] 08/07/2025 1:15 PM EDT Office Visit [facility] MED[facility]INE [address] [place] [address] Brandon Caballero MD [address] [place] [address] 08/22/2025 11:15 AM EDT Office Visit [facility] MED[facility]INE [address] [place] [address] Brittany Saldana MD [address] [place] [address] 09/13/2025 1:00 PM EDT Office Visit [facility] OPTOMETRY [address] [place], [place] [phone] Renetta Mitchell, OD [address] [place] [address] documented as of this encounter Visit Diagnoses Not on filedocumented in this encounter Care Teams Marketing Engineer Relationship Specialty Start Date End Date Brittany Saldana MD [address] [place] [phone] PCP - General Family Medicine 05/08/20 Darrin Hernandez FNP [address] [place] [address] Nurse Practitioner Family Medicine 10/19/23 documented as of this encounter
--- OUTSIDE RECORDS SUMMARY | 2025-07-12 14:54 | XMS_ITS | Encounter Summary ---
Author Organization [employer] Address [address] [place] [address] Care Team Providers Care Cream Tester Name Role Phone Brittany Saldana MD Primary Care Provider + Darrin Hernandez Unavailable Unavailable Reason for Visit * Reason Comments Med Refill Encounter Details Date Type Department Care Team (Late st Contact Info) Description 03/15/2023 Refill [facility]INE [address] [place] [address] Brittany Saldana MD [address] [place] [address] Primary hypertension Social History Tobacco Use Types [...] Description 07/23/2025 11:30 AM EDT Clinical Support [facility]INE [address] [place] [address] 08/07/2025 1:15 PM EDT Office Visit [facility] [address] [place] [address] Brandon Caballero MD [address] [place] [address] 08/22/2025 11:15 AM EDT Office Visit [facility] [address] [place] [address] Brittany Saldana MD [address] [place] [address] 09/13/2025 1:00 PM EDT Office Visit [facility] OPTOMETRY [address] [place] [address] Renetta Mitchell OD [address] [place] [address] documented as of this encounter Visit Diagnoses Diagnosis Primary hypertension Unspecified essential hypertension documented in this encounter Additional Health Concerns Assessment Noted Time PHQ-9 Depression Total Score: 10 023 10:47 AM EDT documented as of this encounter Care Teams Cream Tester Relationship Specialty Start Date End Date Brittany Saldana MD [address] [place] [address] PCP - General Family Medicine 05/08/20 Darrin Hernandez FNP [address] [place] [address] Nurse Practitioner Family Medicine 10/19/23 documented as of this encounter
--- OUTSIDE RECORDS SUMMARY | 2025-07-12 14:54 | XMS_ITS | Encounter Summary ---
Author Organization [employer] Address [address] [place] [address] Care Team Providers Care Neon Pumper Name Role Phone Brittany Saldana MD Primary Care Provider + Darrin Hernandez Unavailable Unavailable Reason for Visit * Reason Onset Date Comments Durable Medical Equipment 02/15/2023 Encounter Details Date Type Department Care Team (Late st Contact Info) Description 02/15/2023 Telephone [facility] MEDICINE 230 [place] [address] Brittany Saldana MD [address] [place] [address] Durable Medical Equipment Social History Tobacco Use [...] Description 07/23/2025 11:30 AM EDT Clinical Support [facility] MEDICINE [address] [place] [address] 08/07/2025 1:15 PM EDT Office Visit [facility] [address] [place] [address] Brandon Caballero MD [address] [place] [address] 08/22/2025 11:15 AM EDT Office Visit [facility] MED[facility]INE [address] [place] [address] Brittany Saldana MD [address] [place] [address] 09/13/2025 1:00 PM EDT Office Visit [facility] OPTOMETRY [address] [place] [address] Renetta Mitchell, GLEN [address] [place] [address] documented as of this encounter Visit Diagnoses Not on filedocumented in this encounter Additional Health Concerns Assessment Noted Time PHQ-9 Depression Total Score: 10 02/11/2 023 10:47 AM EDT documented as of this encounter Care Teams Neon Pumper Relationship Specialty Start Date End Date Brittany Saldana MD 230 [place] [address] PCP - General Family Medicine 05/08/20 Darrin Hernandez FNP [address] [place] [address] Nurse Practitioner Family Medicine 10/19/23 documented as of this encounter
--- OUTSIDE RECORDS SUMMARY | 2025-07-12 14:54 | XMS_ITS | Encounter Summary ---
Author Organization [employer] Address [address] [place] [address] Care Team Providers Care Marine Structural Welder Name Role Phone Brittany Saldana MD Primary Care Provider + Darrin Hernandez Unavailable Unavailable Reason for Visit * Reason Comments Med Refill Encounter Details Date Type Department Care Team (Late Contact Info) Description 06/03/2023 Refill [facility] [address] [place] [address] Darrin Hernandez FNP Depression, unspecified depression type [...] Encounters Date Type Department Care Team (Late Contact Info) Description 07/23/2025 11:30 AM EDT Clinical Support [facility]INE [address] [place] [address] 08/07/2025 1:15 PM EDT Office Visit [facility] MED[facility] [address] [place] [address] Brandon Caballero MD [address] [place] [address] 08/22/2025 11:15 AM EDT Office Visit [facility] MED[facility]INE [address] [place] [address] Brittany Saldana MD [address] [place] [address] 09/13/2025 1:00 PM EDT Office Visit [facility] OPTOMETRY [address] [place] [address] Renetta Mitchell, OD [address] [place] [address] documented as of this encounter Visit Diagnoses Diagnosis Depression, unspecified depression type documented in this encounter Additional Health Concerns Assessment Noted Time PHQ-9 Depression Total Score: 11 023 10:47 AM EDT documented as of this encounter Care Teams Marine Structural Welder Relationship Specialty Start Date End Date Brittany Saldana MD [address] [place] [address] PCP - General Family Medicine 05/08/20 Darrin Hernandez FNP [address] [place] [address] Nurse Practitioner Family Medicine 10/19/23 documented as of this encounter
--- OUTSIDE RECORDS SUMMARY | 2025-07-12 14:54 | XMS_ITS | Encounter Summary ---
Author Organization [employer] Address [address] [place] [address] Care Team Providers Care Spanish Speaking Nanny Name Role Phone Brittany Saldana MD Primary Care Provider + Darrin Hernandez Unavailable Unavailable Reason for Visit * Reason Onset Date Comments r/s appt 12/24/2022 Encounter Details Date Type Department Care Team (Late st Contact Info) Description 12/24/2022 Telephone [facility] MEDICINE 230 [place] [address] Brittany Saldana MD [address] [place] [address] r/s appt Social History Tobacco Use Types [...] states his ride was not there ontime. Day Habilitation Supervisor tried booking but December [employer]ender was full. Please contact pt at [phone] documented in this encounter Plan of Treatment Upcoming Encounters Date Type Department Care Team (Late st Contact Info) Description 07/23/2025 11:30 AM EDT Clinical Support [facility] MEDICINE [address] [place] [address] 08/07/2025 1:15 PM EDT Office Visit [facility] MEDICINE [address] [place] [address] Brandon Caballero MD [address] [place] [address] 08/22/2025 11:15 AM EDT Office Visit [facility] MEDICINE [address] [place] [address] Brittany Saldana MD [address] [place] [address] 09/13/2025 1:00 PM EDT Office Visit [facility] OPTOMETRY [address] [place] [address] Renetta Mitchell OD [address] [place] [address] documented as of this encounter Visit Diagnoses Not on filedocumented in this encounter Additional Health Concerns Assessment Noted Time PHQ-9 Depression Total Score: 9 11/05/ 22 9:37 AM EST documented as of this encounter Care Teams Spanish Speaking Nanny Relationship Specialty Start Date End Date Brittany Saldana MD [address] [place] [address] PCP - General Family Medicine 05/08/20 Darrin Hernandez FNP [address] [place] [address] Nurse Practitioner Family Medicine 10/19/23 documented as of this encounter
--- OUTSIDE RECORDS SUMMARY | 2025-07-12 14:54 | XMS_ITS | Encounter Summary ---
Author Organization [employer] Address [address] [place] [address] Care Team Providers Care Assistant Sales Manager Name Role Phone Brittany Saldana MD Primary Care Provider + Darrin Hernandez Unavailable Unavailable Reason for Visit * Reason Onset Date Comments Referral 09/02/2023 Encounter Details Date Type Department Care Team (Late st Contact Info) Description 09/02/2023 Telephone [facility] MEDICINE [address] [place] [address] Brittany Saldana MD 230 [place] [address] Referral Social History Tobacco Use Types Packs/Day [...] from pt requesting a new referral for Physical Therapy Assistant Specialist, pt stated needs a hearing test. documented in this encounter Plan of Treatment Upcoming Encounters Date Type Department Care Team (Late st Contact Info) Description 07/23/2025 11:30 AM EDT Clinical Support [address] [address] 08/07/2025 1:15 PM EDT Office Visit [facility] MEDICINE [address] [place] [address] Brandon Caballero MD [address] [place] [address] 08/22/2025 11:15 AM EDT Office Visit [address] [address] Brittany Saldana MD [address] [place] [address] 09/13/2025 1:00 PM EDT Office Visit [facility] OPTOMETRY [address] [place], [place] [phone] Renetta Mitchell OD [address] [place] [address] documented as of this encounter Visit Diagnoses Diagnosis 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, type 1 (von Recklinghausen's disease) ([facility]) Neurofibromatosis, Type 1 (von Recklinghausen's disease) documented in this encounter Additional Health Concerns Assessment Noted Time PHQ-9 Depression Total Score: 7 07/06/20 23 2:07 PM EDT documented as of this encounter Care Teams Assistant Sales Manager Relationship Specialty Start Date End Date Brittany Saldana MD [address] [place] [address] PCP - General Family Medicine 05/08/20 Darrin Hernandez FNP [address] [place] [address] Nurse Practitioner Family Medicine 10/19/23 documented as of this encounter
--- OUTSIDE RECORDS SUMMARY | 2025-07-12 14:54 | XMS_ITS | Encounter Summary ---
Author Organization [employer] Address [address] [place] [address] 7[address] [place] [address] Care Team Providers Care Forensic Sergeant Name Role Phone Brittany Saldana MD Primary Care Provider + Darrin Hernandez Unavailable Unavailable Encounter Details Date Type Department Care Team (Latest Contact Info) Description 07/11/2025 Travel Social History Tobacco Use Types Packs/Day [...] Description 07/23/2025 11:30 AM EDT Clinical Support [facility] MEDICINE [address] [place] [address] 08/07/2025 1:15 PM EDT Office Visit [facility] MEDICINE [address] [place] [address] Brandon Caballero MD [address] [place] [address] 08/22/2025 11:15 AM EDT Office Visit [facility] MEDICINE [address] [place] [address] Brittany Saldana MD 230 [place] [address] 09/13/2025 1:00 PM EDT Office Visit [facility] OPTOMETRY [address] [place] [address] Renetta Mitchell OD [address] [place] [address] documented as of this encounter Goals Goal Patient Goal Type Associated Problems Recent Progress Patient-Stated? Author Blood Pressure < 140/90 Blood Pressure 140/68(2024 11:48 AM EDT) No Venkatesh Skinner, PharmD Decrease the frequency of unwanted emotions so that daily functioning is improved General On track( 025 4:48 PM EDT) No Janae Walden, CORTES Hemoglobin A1c < 7 Result Component 5(04/06/2025 9:03 AM EDT) No Venkatesh Skinner, CarlosD documented as of this encounter Visit Diagnoses Not on filedocumented in this encounter Additional Health Concerns Assessment Noted Time PHQ-9 Depression Total Score: 2 12/07/19 25 10:39 AM EST documented as of this encounter Care Teams Forensic Sergeant Relationship Specialty Start Date End Date Brittany Saldana MD [address] [place] [address] PCP - General Family Medicine 05/08/20 Darrin Hernandez FNP [address] [place] [address] Nurse Practitioner Family Medicine 10/19/23 documented as of this encounter
--- OUTSIDE RECORDS SUMMARY | 2025-07-12 14:54 | XMS_ITS | Encounter Summary ---
Author Organization [employer] Address [address] [place] [address] Care Team Providers Care Divine Healer Name Role Phone Brittany Saldana MD Primary Care Provider + Darrin Hernandez Unavailable Unavailable Reason for Visit * Reason Onset Date Comments Med Refill 07/23/2024 Encounter Details Date Type Department Care Team (Late st Contact Info) Description 07/23/2024 Refill [facility] MEDICINE 230 [place], [place] [phone] Alexus Nguyen FNP [address] [place] [address] Depression, unspecified depression type Social History Tobacco [...] Description 07/23/2025 11:30 AM EDT Clinical Support [facility] MEDICINE [address] [place] [address] 08/07/2025 1:15 PM EDT Office Visit [facility] MEDICINE [address] [place] [address] Brandon Caballero MD [address] [place] [address] 08/22/2025 11:15 AM EDT Office Visit [facility] MEDICINE [address] [place] [address] Brittany Saldana MD [address] [place] [address] 09/13/2025 1:00 PM EDT Office Visit [facility] OPTOMETRY [address] [place] [address] Renetta Mitchell, GLEN [address] [place] [address] documented as of this encounter Goals Goal [...] documented as of this encounter Care Teams Divine Healer Relationship Specialty Start Date End Date Brittany Saldana MD [address] [place] [address] PCP - General Family Medicine 05/08/20 Darrin Hernandez FNP [address] [place] [address] Nurse Practitioner Family Medicine 10/19/23 documented as of this encounter
--- OUTSIDE RECORDS SUMMARY | 2025-07-12 14:54 | XMS_ITS | Encounter Summary ---
Author Organization [employer] Address [address] [place] [address] Care Team Providers Care Leather Repairer Name Role Phone Brittany Saldana MD Primary Care Provider + Darrin Hernandez Unavailable Unavailable Reason for Visit * Reason Onset Date Comments Care Coordination 07/09/2025 Encounter Details Date Type Department Care Team (Late st Contact Info) Description 07/09/2025 Telephone [facility] [address] [place], [place] [phone] Brittany Saldana MD [address] [place] [address] Care Coordination Social History Tobacco Use Types Packs/Day Years [...] encounter Miscellaneous Notes * Telephone Encounter - Tao Mack RN - 07/09/2025 3:29 PM EDT TC placed to patient [phone] regarding patient Blood pressure. This RN informed the patient that his PCP would like for him to come in for a Nurse visit to check his B/P and no medications changes as of today. RN scheduled an appt for the patient for 07/23/25 at 1130 am. PT agreed to the appt. PT verbalized understanding. PT to F/U PRN. documented in this encounter Plan of Treatment Upcoming Encounters Date Type Department Care Team (Late st Contact Info) Description 07/23/2025 11:30 AM EDT Clinical Support [facility] [address] [place] [address] 08/07/2025 1:15 PM EDT Office Visit [facility] [address] [place] [address] Brandon Caballero MD [address] [place] [address] 08/22/2025 11:15 AM EDT Office Visit [facility] [address] [place], [place] [phone] Brittany Saldana MD [address] [place], [place] 09/13/2025 1:00 PM EDT Office Visit [facility] [address] [place], [place] [phone] Reentta Mitchell, OD [address] [place], [place] documented as of this encounter Goals [...] 5(04/06/2025 9:03 AM EDT) No Venkatesh Skinner, PharmD documented as of this encounter Visit Diagnoses Not on filedocumented in this encounter Additional Health Concerns Assessment Noted Time PHQ-9 Depression Total Score: 2 12/07/19 25 10:39 AM EST documented as of this encounter Care Teams Leather Repairer Relationship Specialty Start Date End Date Brittany Saldana MD [address] [place] [address] PCP - General Family Medicine 05/08/20 Darrin Hernandez FNP [address] [place] [address] Nurse Practitioner Family Medicine 10/19/23 documented as of this encounter
--- OUTSIDE RECORDS SUMMARY | 2025-07-12 14:54 | XMS_ITS | Encounter Summary ---
Author Organization [employer] Address [address] [place] [address] Care Team Providers Care Insurance Commissioner Name Role Phone Brittany Saldana MD Primary Care Provider + Darrin Hernandez Unavailable Unavailable Reason for Visit * Reason Onset Date Comments Med Refill 08/03/2024 Encounter Details Date Type Department Care Team (Late st Contact Info) Description 08/03/2024 Refill [facility]ICINE [address] [place] [address] Brandon Caballero MD [address] [place] [address] Type 2 diabetes mellitus without complication, without long-term current use of insulin ([facility]) Social History Tobacco Use Types [...] the past 12 months, has t he [employer], gas, oil or water company threatened to [...] Description 07/23/2025 11:30 AM EDT Clinical Support [facility] [address] [place] [address] 08/07/2025 1:15 PM EDT Office Visit [facility] [address] [place] [address] Brandon Caballero MD [address] [place] [address] 08/22/2025 11:15 AM EDT Office Visit [facility] [address] [place] [address] Brittany Saldana MD [address] [place] [address] 09/13/2025 1:00 PM EDT Office Visit [facility] OPTOMETRY [address] [place] [address] Renetta Mitchell, GLEN [address] [place] [address] documented as of this encounter Goals Goal [...] insulin ([facility]) documented in this encounter Additional Health Concerns Assessment Noted Time PHQ-9 Depression Total Score: 4 03/06/20 24 2:22 PM EDT documented as of this encounter Care Teams Insurance Commissioner Relationship Specialty Start Date End Date Brittany Saldana MD [address] [place] [address] PCP - General Family Medicine 05/08/20 Darrin Hernandez FNP [address] [place] [address] Nurse Practitioner Family Medicine 10/19/23 documented as of this encounter
--- OUTSIDE RECORDS SUMMARY | 2025-07-12 14:54 | XMS_ITS | Encounter Summary ---
Author Organization [employer] Address [address] [place] [address] Care Team Providers Care Learning Disabilities Resource Teacher Name Role Phone Brittany Saldana MD Primary Care Provider + Darrin Hernandez Unavailable Unavailable Reason for Visit * Reason Onset Date Comments Med Refill 08/03/2024 Encounter Details Date Type Department Care Team (Late st Contact Info) Description 08/03/2024 Refill [facility] MEDICINE 230 [place], [place] [phone] Alexus Nguyen FNP [address] [place] [address] Mild intermittent asthma without complication Social History [...] Description 07/23/2025 11:30 AM EDT Clinical Support [facility] MEDICINE [address] [place] [address] 08/07/2025 1:15 PM EDT Office Visit [facility] MEDICINE [address] [place] [address] Brandon Caballero MD [address] [place] [address] 08/22/2025 11:15 AM EDT Office Visit [facility] MEDICINE [address] [place] [address] Brittany Saldana MD [address] [place] [address] 09/13/2025 1:00 PM EDT Office Visit [facility] OPTOMETRY [address] [place] [address] Renetta Mitchell, GLEN [address] [place] [address] documented as of this encounter Goals Goal [...] documented as of this encounter Care Teams Learning Disabilities Resource Teacher Relationship Specialty Start Date End Date Brittany Saldana MD [address] [place] [address] PCP - General Family Medicine 05/08/20 Darrin Hernandez FNP [address] [place] [address] Nurse Practitioner Family Medicine 10/19/23 documented as of this encounter
--- OUTSIDE RECORDS SUMMARY | 2025-07-12 14:54 | XMS_ITS | Encounter Summary ---
Author Organization [employer] Address [address] [place] [address] Care Team Providers Care Grip Assembler Name Role Phone Brittany Saldana MD Primary Care Provider + Darrin Hernandez Unavailable Unavailable Encounter Details Date Type Department Care Team (Late st Contact Info) Description 05/11/2025 Results Follow-Up [facility]INE [address] [place] [address] Brittany Saldana MD [address] [place] [address] B Type Natriuretic Peptide (BNP) Social History Tobacco Use Types Packs/Day Years [...] as of this encounter Miscellaneous Notes * Result Encounter Note - Brittany Saldana MD - 05/11/2025 4:08 PM EDT BNP on 05/08/2025 is up to 435. I spoke with patient who tells me that MARQUEZ and leg edema has significantly improved since he started losing more weight and BP is better controlled, lisinopril was recently increased by cardiology to 20 mg. He had an echocardiogram on 01/31/2025 showing normal LVEF andsome diastolic dysfunction. I also spoke with [place] cardiology nurse and requested a follow- up with them, they also want the patient to take BP and weight daily for the follow-up. I called back thepatient, discussed POC and he agreed to FU with them next week. documented in this encounter Plan of Treatment Upcoming Encounters Date Type Department Care Team (Late st Contact Info) Description 07/23/2025 11:30 AM EDT Clinical Support [address] [address] 08/07/2025 1:15 PM EDT Office Visit [facility] [address] [place] [address] Brandon Caballero MD [address] [place], [place] 08/22/2025 11:15 AM EDT Office Visit [facility] [address] [place] [address] Brittany Saldana MD [address] [place], [place] 09/13/2025 1:00 PM EDT Office Visit [facility] OPTOMETRY [address] [place], [place] [phone] Renetta Mitchell OD [address] [place], [place] documented as of this encounter Goals [...] 5(04/06/2025 9:03 AM EDT) No Venkatesh Skinner, PharmHillary documented as of this encounter Visit Diagnoses Not on filedocumented in this encounter Additional Health Concerns Assessment Noted Time PHQ-9 Depression Total Score: 2 12/07/19 25 10:39 AM EST documented as of this encounter Care Teams Grip Assembler Relationship Specialty Start Date End Date Brittany Saldana MD [address] [place] [address] PCP - General Family Medicine 05/08/20 Darrin Hernandez FNP [address] [place] [address] Nurse Practitioner Family Medicine 10/19/23 documented as of this encounter
--- OUTSIDE RECORDS SUMMARY | 2025-07-12 14:54 | XMS_ITS | Encounter Summary ---
Author Organization [employer] Address [address] [place] [address] 7 [place] [address] Care Team Providers Care Behavior Interventionist Name Role Phone Brittany Saldana MD Primary Care Provider + Darrin Hernandez Unavailable Unavailable Reason for Visit * Reason Comments [facility] Encounter Details Date Type Department Care Team (Late st Contact Info) Description 07/10/2025 Patient Outreach [facility] MEDICINE [address] [place] [address] Corbin Aguilar Recovery Supports Social History Tobacco [...] Progress Notes * Corbin Aguilar - 07/10/2025 3:42 PM EDT I met with Dane ruff. Setting: in person at [facility] Recovery Wellness Goals worked on: Physical Health/Mental Health Social Stability Spiritual Wellness Action taken/next steps: Attended recovery support group Contingency management Additional comments: Corbin Aguilar documented in this encounter Plan of Treatment Upcoming Encounters Date Type Department Care Team (Late st Contact Info) Description 07/23/2025 11:30 AM EDT Clinical Support [address] [address] 08/07/2025 1:15 PM EDT Office Visit [address] [address] Brandon Caballero MD [address] [place] [address] 08/22/2025 11:15 AM EDT Office Visit [address] [address] Brittany Saldana MD [address] [place] [address] 09/13/2025 1:00 PM EDT Office Visit [facility] OPTOMETRY [address] [place] [address] Renetta Mitchell OD [address] [place] [address] documented as of this encounter Goals Goal Patient Goal Type Associated Problems Recent Progress Patient-Stated? Author Blood Pressure < 140/90 Blood Pressure 140/68(2024 11:48 AM EDT) No Venkatesh Skinner PharmD Decrease [...] documented as of this encounter Care Teams Behavior Interventionist Relationship Specialty Start Date End Date Brittany Saldana MD 230 [place] [address] PCP - General Family Medicine 05/08/20 Darrin Hernandez FNP [address] [place] [address] Nurse Practitioner Family Medicine 10/19/23 documented as of this encounter
--- OUTSIDE RECORDS SUMMARY | 2025-07-12 14:54 | XMS_ITS | Encounter Summary ---
Author Organization [employer] Address [address] [place] [address] Care Team Providers Care Eddy Current Inspector Name Role Phone Brittany Saldana MD Primary Care Provider + Darrin Hernandez Unavailable Unavailable Reason for Visit * Reason Onset Date Comments Durable Medical Equipment 01/05/2023 Encounter Details Date Type Department Care Team (Late st Contact Info) Description 01/05/2023 Telephone [facility] MEDICINE [address] [place] [address] Brittany Saldana MD [address] [place] [address] Durable Medical Equipment Social History Tobacco Use [...] is accepted there. * Telephone Encounter - Gabbybrent Carballo Holly - 01/05/2023 12:12 PM EST Tc from pt requesting New script for Diabetic Shoes, pt claims that previous script that was sent pt insurance is not taken there. If any questions please contact pt at [phone] documented in this encounter Plan of Treatment Upcoming Encounters Date Type Department Care Team (Late st Contact Info) Description 07/23/2025 11:30 AM EDT Clinical Support [facility] MEDICINE [address] [place] [address] 08/07/2025 1:15 PM EDT Office Visit [facility] MEDICINE [address] [place] [address] Brandon Caballero MD [address] [place] [address] 08/22/2025 11:15 AM EDT Office Visit [facility] MEDICINE [address] [place] [address] Brittany Saldana MD [address] [place] [address] 09/13/2025 1:00 PM EDT Office Visit [facility] OPTOMETRY [address] [place] [address] Renetta Mitchell OD [address] [place] [address] documented as of this encounter Visit Diagnoses Not on filedocumented in this encounter Additional Health Concerns Assessment Noted Time PHQ-9 Depression Total Score: 4 12/31/19 10:56 AM EST documented as of this encounter Care Teams Eddy Current Inspector Relationship Specialty Start Date End Date Brittany Saldana MD [address] [place] [address] PCP - General Family Medicine 05/08/20 Darrin Hernandez FNP [address] [place] [address] Nurse Practitioner Family Medicine 10/19/23 documented as of this encounter
--- OUTSIDE RECORDS SUMMARY | 2025-07-12 14:55 | XMS_ITS | Clinical Summary ---
Author Organization [facility] Address [address] [place] [address] Phone Care Team Providers Care [employer] Name Role Phone Brittany Saldana MD Primary Care Provider + [phone] Allergies Active Allergy Reactions Criticality Noted Date Comments Penicillins 03/08/2018 Medications albuterol HFA (PROAIR HFA ; PROVENTIL HFA ; VENTOLIN HFA) 90 mcg/actuation inhaler 06/22/2025 Active ARIPiprazole (ABILIFY) 2 mg tablet 06/22/2025 Active atorvastatin (LIPITOR) 20 mg tablet 06/22/2025 Active OneTouch Ultra Test test strip 08/30/2024 Act [place] buPROPion XL (WELLBUTRIN XL) 300 mg 24 hr tablet 06/22/2025 Active calcium carbonate-vitam in D 600 mg-10 mcg (400 unit) per tablet 10/27/2024 Active cloNIDine (CATAPRES) 0.1 mg tablet 06/22/2025 Active cyanocobalamin (VITAMIN B-12) 1,000 mcg tablet 10/27/2024 Active docusate sodium (COLACE) 100 mg capsule Take 1 capsule (100 mg total) by mouth 2 (two) times a day if needed. 05/10/2025 Active felodipine (PLENDIL) 5 mg 24 hr tablet 1 tablet (5 mg total). 02/09/2018 Active finasteride (PROSCAR) 5 mg tablet 06/22/2025 Active fluticasone propionate (FLONASE) 50 mcg/actuation nasal spray 06/22/2025 Active gabapentin (NEURONTIN) 300 mg capsule 02/26/2025 Active ketorolac (ACULAR) 0.5 % ophthalmic solution INSTILL 1 DROP AFFECTED EYE(S) THREE TIMES DAILY STARTING 2 DAYS BEFORE SURGERY 04/04/2025 Active lisinopriL (PRINIVIL,ZESTR IL) 20 mg tablet 06/22/2025 Active melatonin 5 mg tablet 10/27/2024 Active methylphenidate 36 mg ER tablet TAKE 1 TABLET BY MOUTH EVERY DAY IN THE MORNING, DO NOT BREAK, CRUSH, DISSOLVE OR CHEW 06/20/2025 Active metoprolol succinate (TOPROL-XL) 25 mg 24 hr tablet 06/22/2025 Act [place] CertaVite Senior tablet 10/27/2024 Activ e Certavite-Antio xidant 18-400 mg-mcg tablet tablet Take 1 tablet by mouth 1 (one) time each day in the morning. 09/22/2024 Active spironolactone (ALDACTONE) 25 mg tablet 06/22/2025 Active tadalafiL (CIALIS) 20 mg tablet TAKE ONE TABLET BY MOUTH EVERY DAY FOR SEXUAL ACTIVITY- OR WHEN NEEDED 60 MINUTES BEFORE Active terazosin (HYTRIN) 5 mg capsule 09/27/2024 Active thiamine 100 mg tablet 10/27/2024 Active traZODone (DESYREL) 100 mg tablet 06/22/2025 Active Encounters Date Type Department Care Team Description 07/03/2025 10:30 AM EDT [facility] [address] [place] [address] Sena Mobley MD Pulmonary nodule (Primary Dx); Neurofibromatosis (CMS/HCC V24, CMS/HCC V28) 05/09/2025 [facility] [address] [place] [address] Sena Mobley MD from Last 3 Months Social History Tobacco Use Types Packs/Day Years Used Date Smoking Tobacco: Never Assessed Sex and Gender Information Value Date Recorded Sex Assigned at Male 07/05/2025 2:56 PM EDT Legal Sex Male 5:12 AM EST Gender Identity Male 07/05/2025 2:56 PM EDT Sexual Orientation Straight 07/05/2025 2: 56 PM EDT Last Filed Vital Signs Vital Sign Reading Time Taken Comments Blood Pressure 139/50 07/03/2025 10:34 AM EDT Pulse 61 07/03/2025 10:34 AM EDT Temperature 36.1 C (97 F) 07/03/2025 10:34 AM EDT Respiratory Rate - - Oxygen Saturation 100% 07/03/2025 10:34 AM EDT Inhaled Oxygen Concentration - - Weight 69.7 kg (153 lb 9.6 oz) 07/03/2025 10:34 AM EDT Height - - Body Mass Index - - Plan of Treatment Upcoming Encounters Date Type Department Care Team (Late st Contact Info) Description 07/31/2025 4:30 PM EDT Appointment [facility] CT Scan [address] [place] [address] 08/07/2025 10:30 AM EDT Office Visit [facility] - [place] [address] [facility] [address] [place] [id number] Sena Mobley MD [address] [place] [phone] Health Maintenance Due Date Last Done Comments Diabetes: Annual Foot Exam 1965 Diabetes: Annual Retina Eye Exam 1965 Depression Screening 11/15/2024 COVID-19 Vaccine ( season) 2025 09/09/2024, 08/17/2023, 09/02/2022, Additional history exists Abdominal Aortic Aneurysm (AAA) Screen 04/02/2025 Colorectal Cancer Screening: Colonoscopy 04/02/2025 Falls Risk Assessment 04/02/2025 Hepatitis C Screening 04/02/2025 Social Influencers of Health Screening 04/02/2025 Diabetes: Annual Urine Albumin-Creatinine Ratio (uACR) 07/03/2025 Influenza Vaccine (#1) 2025 , 08/17/2023, 08/05/2022, Additional history exists Diabetes: Blood Sugar Control Test (HGBA1C) 10/07/2025 04/06/2025 Diabetes: Annual GFR (Glomerular Filtration Rate) 04/10/2026 04/10/2025, 04/06/2025 Hypertension/CHF/CAD Annual BMP Blood Test 04/10/2026 04/10/2025, 04/06/2025 Cholesterol Screening (Lipid Panel) 04/06/2030 04/06/2025 DTaP,Tdap,and Td Vaccines (2 - Td or Tdap) 03/04/2032 03/04/2022 Zoster Vaccines Completed 01/03/2021, 09/13/2020 Hepatitis A Vaccines Completed 09/02/2022, 02/18/20 Hepatitis B Vaccines Completed 09/02/2022, 05/06/2022, 02/17/2022 Pneumococcal Vaccine: 50+ Years Completed 10/02/2022, 10/06/2019 RSV Immunization Adult Patients Completed 02/12/2024 HIB Vaccines Aged Out No longer eligi [...] to complete this topic RSV Immunization Patients Under 20 months Aged Out No longer eligible based on patient's age to complete this topic Varicella Vaccines Aged Out No longer eligible based on patient's age to complete this topic Procedures Procedure Name Priority Date/Time Associated Diagnosis Comments EXTERNAL CT REPORT 04/30/2025 from Last 3 Months Results * External CT Report (04/30/2025) Anatomical Region Laterality Modality Computed Tomogra phy Provider [facility] IMG CT PROCEDURES Final Result from Last 3 Months Insurance [facility] Member Subscriber Plan / Payer (Ef fective 2023-Present) Name:Dane Calles Relation to Subscriber:Self Name:Dane Calles Payer ID:[id number] Group ID:[id number] Type:Not on file Address: [address] [place] [phone] 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
--- OUTSIDE RECORDS SUMMARY | 2025-07-12 14:55 | XMS_ITS | Clinical Summary ---
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 Name Role Phone Brittany Saldana [...] current use of insulin ([facility]) Use 1 lancet to monitor blood glucose twice daily 100 each 11 02/24/20 23 Active meclizine (Antivert) 25 MG tabletIndicatio ns:Vertigo TAKE 1 TABLET BY MOUTH THREE TIMES DAILY IN THE MORNING, AT NOON, AND AT BEDTIME NEEDED FOR DIZZINESS 90 tablet 07/10/20 24 Active glucose blood (OneTouch Ultra) test stripIndication s:Type 2 diabetes mellitus without complication, without long-term current use of insulin ([facility]) TEST BLOOD SUGAR TWICE DAILY [...] HOURS NEEDED 8.5 g 01/23/20 25 Active cyanocobalamin (Vitamin B-12) 1000 MCG tablet TAKE ONE TABLET BY MOUTH EVERY MORNING 30 tablet 03/20/20 25 Active thiamine (Vitamin B-1) 100 MG tablet TAKE ONE TABLET BY MOUTH EVERY MORNING 30 tablet 03/20/20 25 Active ferrous sulfate (Fe Tabs) 325 [...] times daily. 90 capsule 03/23/20 25 Active cloNIDine (Catapres) 0.1 MG tabletIndicatio ns:PTSD (post-traumatic stress disorder) TAKE 1 TABLET BY MOUTH AT BEDTIME 90 tablet 03/30/20 25 Active buPROPion XL (Wellbutrin XL) 300 MG 24 hr tablet Take 1 tablet (300 mg) by mouth in the morning. 90 tablet 03/30/20 25 Active ARIPiprazole (Abilify) 2 MG tablet Take 1 tablet (2 mg) by mouth Once per day. 90 tablet 03/30/20 25 Active olopatadine (Pataday) 0.1 % ophthalmic solution Administer 1 drop into both eyes 2 times daily. 5 mL 1 04/26/20 25 Active docusate sodium (Colace) 100 MG capsuleIndicati ons:Constipatio n, unspecified constipation type TAKE 1 CAPSULE BY MOUTH TWICE DAILY NEEDED 180 capsule 2 05/09/20 25 Active fluticasone (Flonase) 50 MCG/ACT nasal sprayIndication s:Chronic rhinitis USE 1-2 SPRAYS EACH NOSTRIL ONCE DAILY NEEDED 16 g 06/19/20 25 Active melatonin 5 MG tabletIndicatio ns:Acute insomnia TAKE ONE TABLET BY MOUTH AT BEDTIME 30 tablet 11 06/19/20 25 Active lisinopril 10 MG tabletIndicatio ns:Essential (primary) hypertension Take 1.5 tablets (15 mg) by mouth Once per day. 45 tablet 06/19/20 25 026 Active methylphenidate ER (Concerta) 36 MG CR tablet TAKE 1 TABLET BY MOUTH EVERY DAY IN THE MORNING DO NOT BREAK, CRUSH, DISSOLVE OR CHEW 30 tablet 06/19/20 25 Active polyethylene glycol, PEG, 3350 (MiraLax) 17 GM/SCOOP powder Take 17 g by mouth if needed each day (constipation >1d). 527 g 07/05/20 026 Active polyethylene glycol, PEG, 3350 (MiraLax) 17 GM/SCOOP powder Take 17 g by mouth if needed each day (constipation >1d). 527 g 08/11/20 24 025 Discontinued(R eorder (will not trigger notification to Pharmacy)) lisinopril 10 MG tabletIndicatio ns:Primary hypertension Take 1 tablet (10 mg) by mouth Once per day. 30 tablet 01/23/20 025 Discontinued(R eorder (will not trigger notification to Pharmacy)) fluticasone (Flonase) 50 MCG/ACT nasal sprayIndication s:Chronic rhinitis USE 1-2 SPRAYS EACH NOSTRIL ONCE DAILY NEEDED 16 g 3 02/14/20 25 025 Discontinued melatonin 5 MG tabletIndicatio ns:Acute insomnia TAKE ONE TABLET BY MOUTH AT BEDTIME 30 tablet 3 02/14/20 25 025 Discontinued methylphenidate ER (Concerta) 36 MG CR tablet TAKE 1 TABLET BY MOUTH EVERY DAY IN THE MORNING DO NOT BREAK, CRUSH, DISSOLVE OR CHEW 30 tablet 05/22/20 25 025 Discontinued(R eorder (will not trigger notification to Pharmacy)) methylphenidate ER (Concerta) 36 MG CR tablet TAKE 1 TABLET BY MOUTH EVERY DAY IN THE MORNING DO NOT BREAK, CRUSH, DISSOLVE OR CHEW 30 tablet 06/19/20 25 025 Discontinued(R eorder (will not trigger notification to Pharmacy)) Active Problems Problem Noted Date Diagnosed Date Abnormal thyroid blood test 04/24/2025 Cough with hemoptysis 03/26/2025 Assessment & Plan [...] AM EDT): - obtain holter monitor from [facility] ordered by weight management program - will [...] testosterone, will call after labs FU in Erectile dysfunction 06/03/2023 Assessment & Plan (06/03/2023 2:57 PM EDT): Not improving with Cialis from . Rx Viagra 50-100mg prn, explained potential side effects including face flashing, TOLEDO, dizziness, hold Flomax that night if taking Viagra and fu with . Order TSH/testosterone levels, clinical psychology teacher input appreciated. Iliopsoas bursitis of [...] IZs -RSV pending not available today in [facility] pharmacy Advise to have it [...] management. For any issues or concerns contact [facility]. Continue with therapist as usual. [...] he he was not contacted yet, per endocrinology specialist, [facility] hoang contact him on 05/11/23 at 9:47 am, but he didn't responded, vm was left. I provide him with [employer] information for him to follow up, he agreed. Provided education around integrated medicine and the options of follow up BE's as needed. Provided contact information should questions or concerns arise. Plan: Narendra will engage in effective coping mechanisms provided at least 1 per day for 6 months. He will be Contacting [employer] for him to engage in Ind. Therapy [...] treatment engagement. PLAN: 1. Follow up with [facility]: Recommended for follow-up: during AUD appts. 2. [...] treatment engagement. PLAN: 1. Follow up with [facility]: Recommended for follow-up: during AUD appts. 2. [...] predominantly inattentive type 10/22/2022 Assessment & Plan (06/19/2025 1:57 PM EDT): Doing well on Methylphenidate ER 36mg/d Advised against use of recreational substances or ETOH. Assessment & Plan (03/21/2024 12:00 PM EDT): [...] Essential (primary) hypertension 10/22/2022 Assessment & Plan (06/19/2025 1:56 PM EDT): Uncontrolled, Continue metoprolol and spironolactone, increase lisinopril to 15mg and follow- up with me in 6-8 weeks Counseled re low salt diet/increase moderate physical activity. Check home BP BIW and prn CP/TOLEDO/MARQUEZ Non smoking patient. Assessment & Plan (03/26/2025 1:28 PM EDT): [...] BP records next week and drop at help desk support specialist for me to review. Continue Lisinopril 7.5 [...] exercise, life style modifications, diet, referral to credentials specialist. Discussed re lower calorie intake, increase dietary fiber Pt insisted on wt reduction program, C program given today Encounters * This document contains information received from the source organization and may not represent a complete record from that organization. Date Type Department Care Team Description 07/11/2025 10:00 AM EDT Clinical Support [address] [address] Janae Walden, CORTES Alcohol use disorder, severe, in sustained remission (CMS/HCC) 07/11/2025 Travel 07/10/2025 Patient Outreach [address] [address] Corbin Aguilar Recovery Supports 07/10/2025 Patient Outreach [address] [address] Corbin Aguilar [facility] Supports 07/09/[address] [address] Brittany Saldana MD Care Coordination 06/29/[address] [address] Brittany Saldana MD 06/27/2025 10:00 AM EDT Office Visit [address] [address] Migue Stephens MD Alcohol use disorder, severe, in sustained remission (CMS/HCC) (Primary Dx) 06/27/2025 Travel 06/26/[address] [facility] [address] [facility] [place] [address] Ted Olvera Recovery Supports 06/20/2025 10:00 AM EDT Office Visit [facility] [address] [facility] [place] [address] Migue Stephens MD Alcohol use disorder, severe, in sustained remission (CMS/HCC) (Primary Dx) 06/20/2025 Travel 06/19/2025 11:45 AM EDT Office Visit [facility] [address] [facility] [place] [address] Brittany Saldana MD Essential (primary) hypertension (Primary Dx); Attention deficit hyperactivity disorder, predominantly inattentive type 06/19/2025 Travel 06/18/[address] [facility]S [address] [place], [place] [address] [facility] 06/18/[address] [facility] [address] [facility] [place] [address] Brittany Saldana MD Chronic rhinitis; Acute insomnia 06/13/2025 10:00 AM EDT Office Visit [facility] [address] [facility] [place] [address] Migue Stephens MD Alcohol use disorder, severe, in sustained remission (CMS/HCC) (Primary Dx) 06/13/2025 Travel 06/12/[address] [facility] [address] [place] [address] Brittany Saldana MD Pre-visit Planning (SDOH screening completed on 01/22/2025) 06/12/2025 Travel 06/05/2025 Orders Only [facility] External Provider, [facility] 06/05/[address] [facility] [address] [place] [address] Ted Olvera Recovery Supports 05/30/2025 10:00 AM EDT Office Visit [facility] [address] [place] [address] Migue Stephens MD Alcohol use disorder, severe, in sustained remission (CMS/HCC) (Primary Dx) 05/30/2025 Travel 05/29/2025 Patient Outreach [facility] [place] [address] eTd Olvera Recovery Supports 05/23/2025 10:00 AM EDT Office Visit [facility] [facility] [place] [address] Migue Stephens MD Alcohol use disorder, severe, in sustained remission (CMS/HCC) (Primary Dx) 05/23/2025 Travel 05/22/[address] [facility] [address] [facility] [place] [address] Rolando Amos Recovery Supports 05/21/2025 Refill [facility] P[facility] [address] [place], [place] [phone] Brittany Saldana MD 05/16/2025 10:00 AM EDT Office Visit [facility] [place] [address] Migue Stephens MD Alcohol use disorder, severe, in sustained remission (CMS/HCC) (Primary Dx) 05/16/2025 Travel 05/15/2025 1:00 PM EDT Office Visit [facility] [place] [address] Brandon Caballero MD Alcohol use disorder, severe, in sustained remission (CMS/HCC) (Primary Dx) 05/15/2025 Patient Outreach [facility] [place] [address] Jose Chang Recovery Supports 05/15/2025 Travel 05/11/2025 Results Follow-Up [facility] [place] [address] Brittany Saldana MD B Type Natriuretic Peptide (BNP) 05/09/2025 10:00 AM EDT Office Visit [facility] [place] [address] Brandon Caballero MD Alcohol use disorder, severe, in sustained remission (CMS/HCC) (Primary Dx) 05/09/2025 Travel 05/09/2025 Refill [facility] [place] [address] Brittany Saldana MD Constipation, unspecified constipation type 05/08/2025 Patient Outreach [facility] [place] [address] Ted Olvera Recovery Supp[facility] 05/08/2025 [address] [place] [address] Brittany Saldana MD Referral 05/02/2025 10:00 AM EDT Office Visit [address] [place] [address] Migue Stephens MD Alcohol use disorder, severe, in sustained remission (CMS/HCC) (Primary Dx) 05/02/2025 Travel 05/01/2025 Patient Outreach [facility] [place] [address] Ted Olvera Recovery Supp[facility] 04/25/2025 10:00 AM EDT Office Visit [address] [place] [address] Migue Stephens MD Alcohol use disorder, severe, in sustained remission (CMS/HCC) (Primary Dx) 04/25/2025 Travel 04/24/2025 Patient Outreach [facility] [place] [address] Jose Chang Recovery Supports 04/18/2025 10:00 AM EDT Office Visit [facility] [place] [address] Migue Stephens MD Alcohol use disorder, severe, in sustained remission (CMS/HCC) (Primary Dx) 04/18/2025 Results Follow-Up [facility] [place] [address] Brittany Saldana MD Hemoglobin A1c, Comprehensive Metabolic Panel, Iron And Total Iron Binding Capacity, Additional followed-up results: 9 04/18/2025 Travel 04/17/2025 Refill [facility] [place] [address] Brittany Saldana MD 04/17/2025 Patient Outreach [address] [phone] Ted Olvera Recovery Supports 04/13/[address] [place] [address] Brittany Saldana MD 04/11/2025 10:00 AM EDT Office Visit [facility] MEDICINE [address] [place] [address] Migue Stephens MD Alcohol use disorder, severe, in sustained remission (CMS/HCC) (Primary Dx) 04/11/2025 Travel from Last 3 Months Immunizations Immunization Administration Dates Next Due Hep A, Adult [...] Sign Reading Time Taken Comments Blood Pressure 140/68 06/19/2025 11:48 AM EDT Pulse 60 06/19/2025 11:48 AM EDT Temperature 36.6 C (97.8 F) 06/19/2025 11:48 AM EDT Respiratory Rate 14 06/19/2025 11:48 AM EDT Oxygen Saturation 92% 03/26/2025 12:59 PM EDT Inhaled Oxygen Concentration - - Weight 68.6 kg (151 lb 3.2 oz) 06/19/2025 11:48 AM EDT Height 160 cm (5' 3 ) 06/19/2025 11:48 AM EDT Body Mass Index 26.78 06/19/2025 11:48 AM EDT Plan of Treatment Upcoming Encounters Date Type Department Care Team (Late st Contact Info) Description 07/23/2025 11:30 AM EDT Clinical Support [facility] MED[facility] [address] [place] [id number] 08/07/2025 1:15 PM EDT Office Visit [facility] [address] [place] [phone] Brandon Caballero MD [address] [place] [address] 08/22/2025 11:15 AM EDT Office Visit [address] [address] Brittany Saldana MD [address] [place] [address] 09/13/2025 1:00 PM EDT Office Visit [facility] OPTOMETRY [address] [place] [address] Renetta Mitchell, GLEN [address] [place] [address] Health Maintenance Due Date Last Done Comments CT Colonography 1955 Dental Oral Exam 1955 Dental Prophylaxis 1955 Dental X-Ray: Bitewings 1957 Dental X-Ray: Full Mouth 1955 FIT DNA/Cologuard 1957 FIT 1957 FOBT 1955 Sigmoidoscopy 1955 COVID-19 Vaccine ( season) 2025 09/09/2024, 08/17/2023, 09/02/2022, Additional history exists Influenza Vaccine (#1) 2025 , 08/17/2023, 08/05/2022, Additional history exists Colonoscopy 09/19/2025 09/19/2024 Colorectal Cancer Screening 09/19/2025 Diabetes: Hemoglobin A1C 10/07/2025 025, 12/07/2024, 07/26/2024, Additional history exists Alcohol/Substance Use Screening 12/07/2025 12/07/2024 Depression Screening 12/07/2025 12/07/2024, 12/07/19 SDOH Screening 01/22/2026 01/22/2025 Tobacco Screening 03/26/2026 03/26/2025 Eye Exam 04/06/2026 04/06/2024, 03/16, 04/06/2024, Additional history exists Lipid Panel 04/06/2026 04/06/2025, 12/16, 02/24/2023, Additional history exists Diabetes: Urine Protein Screening 04/10/2026 04/10/2025, 05/02/2024, 12/09/2021 Diabetes: Foot Exam 06/19/2026 06/19/2025, 06/19/2025, 06/19/2025, Additional history exists DTaP/Tdap/Td Vaccines (2 - [...] Aged 60 years or older Completed 02/12/2024 HIB Vaccines Aged Out No [...] 025 4:48 PM EDT) No Janae Walden, RN Hemoglobin A1c < 7 Result Component 5(04/06/2025 9:03 AM EDT) No Venkatesh Skinner PharmD Procedures Procedure Name Priority Date/Time Associated Diagnosis Comments STRESS TEST WITH MYOCARDIAL PERFUSION Routine 06/05/2025 8:15 AM EDT B TYPE NATRIURETIC PEPTIDE (BNP) Routine 05/08/2025 8:47 AM EDT MARQUEZ (dyspnea on exertion) CT CHEST WO CONTRAST Routine 04/30/2025 12:50 PM EDT Cough with hemoptysis T4 (THYROXINE), TOTAL Routine 04/20/2025 8:35 AM EDT Chronic fatigue Abnormal thyroid blood test TSH Routine 04/20/2025 8:35 AM EDT Chronic fatigue Abnormal thyroid blood test T4, FREE Routine 04/20/2025 8:35 AM EDT Chronic fatigue Abnormal thyroid blood test T3, TOTAL Routine 04/20/2025 8:35 AM EDT Chronic fatigue Abnormal thyroid blood test T3, FREE Routine 04/20/2025 8:35 AM EDT Chronic fatigue Abnormal thyroid blood test ALBUMIN, RANDOM URINE W/CREATININE Routine 04/10/2025 10:21 AM EDT HEMOGLOBIN A1C Routine 04/06/2025 9:03 AM EDT LIPID PANEL, STANDARD Routine 04/06/2025 9:03 AM EDT HM COLONOSCOPY Routine 09/19/2024 ZZZ HISTORICAL HEPATITIS C AB W/REFL TO HCV RNA, QN, PCR Routine 12/09/2021 11:13 AM EST from Last 3 Months or Most Recently Relevant to Health Maintenance Results * Stress test with myocardial perfusion (06/05/2025 8:15 AM EDT) 06/05/2025 8:15 AM EDT Narrative [facility] IMAGING - 06/08/2025 2:10 PM EDT [address] [address] Nuclear Medicine Report Signed Patient: Dane Calles MR#: [id number] 89 : 1955 Acct:[id number] Age/Sex: 70 / M ADM Date: 06/05/25 Loc: [facility] Attending Dr: Zane Mendez NP Ordering Physician: Zane Mendez NP Date of Service: 06/05/25 Procedure(s): SD cardiolite stress test Accession Number(s): [id number] cc: Brittany Saldana MD; Zane Mendez NP EXERCISE MYOCARDIAL PERFUSION STUDY INDICATION: Chest pain to evaluate for myocardial ischemia TECHNIQUE: The patient was brought in for an exercise perfusion study on 06/05/2025. Patient performed exercise as per Rc protocol and was injected 25 mCi of sestamibi once target heart rate was achieved. Images were obtained using the SPECT gamma camera interlaced with the gating device. Images were obtained in supine position. Resting perfusion study was performed on 06/08/2025. Patient was administered 25 mCi of sestamibi intravenously at rest. Images were then obtained in supine position. Images obtained without without CT attenuation. Total DLP 88 mGy-cm. Images were processed with the software and compared side to side in short axis, horizontal long axis and vertical long axis views. FINDINGS: Raw images were reviewed The stress perfusion study showed nonattenuated images show mildly reduced uptake in the basal and mid inferior as well as inferoapical wall and moderately reduced uptake in the apical wall of the LV myocardium. There is also mildly to moderately reduced uptake and inferolateral and lateral wall of the LV myocardium attenuated corrected images show normal uptake in the inferior and inferolateral wall with mildly reduced uptake in the apex of the LV myocardium.. The gated study shows low normal LV systolic function with calculated LVEF of 50%. LV cavity is moderately to severely dilated in size. The gated study shows reduced wall thickening and contraction of basal inferior segments. Resting study shows attenuated corrected images show no significant change in perfusion pattern compared to stress perfusion study. Nontender images show improved uptake in the inferior wall with no change in perfusion pattern in the inferolateral and lateral wall of the LV myocardium.. Gating at rest was not performed. The findings are consistent with equivocal findings although attenuated corrected images show no clear reversible defect suggestive of ischemia.. NM/SD cardiolite stress test IMPRESSION: 1. Myocardial perfusion imaging study shows no clear reversible ischemia on attenuated corrected images. 2. Gated LVEF is 50%. 3. Transient ischemic dilatation present and with stress LV cavity is moderately to severely dilated. EKG revealed negative for ischemia. Electronically signed by: Roman Olivia MD 06/08/2025 02:07 PM EDT RP Dictated By: Roman Olivia MD Signed By: <Electronically signed by Roman Olivia MD in OV> 06/08/25 1407 DD/ 0815 TD/TT: 06/08/25 0815 In House Counsel: Procedure Note Donotuseinterpreter, Image - 06/08/2025 [place] [address] Nuclear Medicine Report Signed Patient: Dane Calles R#: [id number] [birth year] : 1955cct:[id number] Age/Sex: 70 / MADM Date: 06/05/25 Loc: [facility] Attending Dr: Zane Mendez NP Ordering Physician: Zane Mendez NP Date of Service: 06/05/25 Procedure(s): SD cardiolite stress test Accession Number(s): [id number] cc: Brittany Saldana MD; Zane Mendez NP EXERCISE MYOCARDIAL PERFUSION STUDY INDICATION: Chest pain to evaluate for myocardial ischemia TECHNIQUE: The patient was brought in for an exercise perfusion study on 06/05/2025. Patient performed exercise as per Rc protocol and was injected 25 mCi of sestamibi once target heart rate was achieved. Images were obtained using the SPECT gamma camera interlaced with the gating device. Images were obtained in supine position. Resting perfusion study was performed on 06/08/2025. Patient was administered 25 mCi of sestamibi intravenously at rest. Images were then obtained in supine position. Images obtained without without CT attenuation. Total DLP 88 mGy-cm. Images were processed with the software and compared side to side in short axis, horizontal long axis and vertical long axis views. FINDINGS: Raw images were reviewed The stress perfusion study showed nonattenuated images show mildly reduced uptake in the basal and mid inferior as well as inferoapical wall and moderately reduced uptake in the apical wall of the LV myocardium. There is also mildly to moderately reduced uptake and inferolateral and lateral wall of the LV myocardium attenuated corrected images show normal uptake in the inferior and inferolateral wall with mildly reduced uptake in the apex of the LV myocardium.. The gated study shows low normal LV systolic function with calculated LVEF of 50%. LV cavity is moderately to severely dilated in size. The gated study shows reduced wall thickening and contraction of basal inferior segments. Resting study shows attenuated corrected images show no significant change in perfusion pattern compared to stress perfusion study. Nontender images show improved uptake in the inferior wall with no change in perfusion pattern in the inferolateral and lateral wall of the LV myocardium.. Gating at rest was not performed. The findings are consistent with equivocal findings although attenuated corrected images show no clear reversible defect suggestive of ischemia.. NM/NM cardiolite stress test IMPRESSION: 1. Myocardial perfusion imaging study shows no clear reversible ischemia on attenuated corrected images. 2. Gated LVEF is 50%. 3. Transient ischemic dilatation present and with stress LV cavity is moderately to severely dilated. EKG revealed negative for ischemia. Electronically signed by: Roman Olivia MD 06/08/2025 02:07 PM EDT Dictated By: Roman Olivia MD Signed By: <Electronically signed by Roman Olivia MD in OV> 06/08/25 1407 DD/ 0815 TD/TT: 06/08/25 0815 In House Counsel: us [facility] External Provider CV STRE SS PROCEDURES Edited Result - Final [facility] IMAGING [address] [place] [phone] * (ABNORMAL) B Type Natriuretic Peptide (BNP) (05/08/2025 8:47 AM EDT) B Type Natriuretic Peptide 435(H) <100 pg/mL [facility] Blood Venous blood specimen / Unknown 05/08/2025 8:47 AM EDT 05/08/2025 11:18 AM EDT us Brittany Saldana MD LAB BLOOD ORDERABLES Fin al Result [facility] [address] [place] [phone] * CT Chest w/o Contrast (04/30/2025 12:50 PM EDT) Anatomical Region Laterality Modality Body, Chest Computed Tomogra phy 04/30/2025 12:5 0 PM EDT Narrative 04/30/2025 2:27 PM EDT [address] [address] [address] Scan Report Signed Patient: Dane Calles MR#: [id number] 89 : 1955 Acct:[id number] Age/Sex: 70 / M ADM Date: 04/30/25 Loc: HO.CT Attending Dr: Brittany Saldana MD Ordering Physician: Brittany Saldana MD Date of Service: 04/30/25 Procedure(s): CT chest wo IV con Accession Number(s): [id number] cc: Brittany Saldana MD Report Number: [id number]: Total DLP = 238.00 mGy-cm EXAMINATION: CT CHEST WITHOUT CONTRAST CLINICAL INFORMATION: Hemoptysis COMPARISON: X-ray of December 28, 2023 TECHNIQUE: Multidetector volumetric CT imaging of the chest was done. Axial MIP volume rendering provided. Sagittal and coronal reformatted images were obtained. This CT examination was performed using dose optimization techniques as appropriate, variously including the following: *Automated exposure control *Adjustment of mA and/or kV according to patient size (this includes techniques or standardized protocols for targeted exams where dose is matched to indication/reason for exam; i.e. extremities or head) *Use of iterative reconstruction technique DLP: 238 mGY*cm FINDINGS: LUNGS: Subtle groundglass densities are present in the central lungs, more in the upper lobes. There is a small focal airspace opacity in the lingula, centrally. MEDIASTINUM: There is small pericardial effusion. CORONARY ARTERY CALCIFICATION: None visualized on this study. PLEURA: There is no pleural effusion. No pleural mass or thickening. AXILLA: No lymphadenopathy. UPPER ABDOMEN: Right adrenal gland is mildly prominent in size. There is an 18 mm diameter parapelvic cyst in the lateral left kidney. Surgical changes from gastric bypass surgery are noted. OSSEOUS STRUCTURES: T2-3 demonstrates moderately severe disc space narrowing with endplate sclerosis and osteophytes. There is also degenerative endplate irregularity. There is also moderate disc space narrowing and vacuum phenomenon in the mid to upper thoracic spine. CT/CT chest wo IV con IMPRESSION: There are subtle groundglass densities in the upper lobes and focal airspace opacity in the central lingula. This could represent pneumonia, atypical pneumonia, drug reaction, or other hypersensitivity. Possible nodular hyperplasia of the right adrenal gland. Small pericardial effusion Fleischner guidelines were followed. Electronically signed by: Glenn Lockhart MD 04/30/2025 02:25 PM EDT Dictated By: Glenn Lockhart MD Signed By: <Electronically signed by Glenn Lockhart MD in OV> 04/30/25 1425 DD/ 1250 TD/TT: 04/30/25 1317 In House Counsel: Procedure Note Donotuseinterpreter, Image - 04/30/[address] [address] [address] Scan Report Signed Patient: Dane Calles JMR#: [id number] : [id number] Age/Sex: 70 / MADM Date: 04/30/25 Loc: HO.CT Attending Dr: Brittany Saldana MD Ordering Physician: Brittany Saldana MD Date of Service: 04/30/25 Procedure(s): CT chest wo IV con Accession Number(s): [id number] cc: Brittany Saldana MD Report Number: [id number]: Total DLP = 238.00 mGy-cm EXAMINATION: CT CHEST WITHOUT CONTRAST CLINICAL INFORMATION: Hemoptysis COMPARISON: X-ray of December 28, 2023 TECHNIQUE: Multidetector volumetric CT imaging of the chest was done. Axial MIP volume rendering provided. Sagittal and coronal reformatted images were obtained. This CT examination was performed using dose optimization techniques as appropriate, variously including the following: *Automated exposure control *Adjustment of mA and/or kV according to patient size (this includes techniques or standardized protocols for targeted exams where dose is matched to indication/reason for exam; i.e. extremities or head) *Use of iterative reconstruction technique DLP: 238 mGY*cm FINDINGS: LUNGS: Subtle groundglass densities are present in the central lungs, more in the upper lobes. There is a small focal airspace opacity in the lingula, centrally. MEDIASTINUM: There is small pericardial effusion. CORONARY ARTERY CALCIFICATION: None visualized on this study. PLEURA: There is no pleural effusion. No pleural mass or thickening. AXILLA: No lymphadenopathy. UPPER ABDOMEN: Right adrenal gland is mildly prominent in size. There is an 18 mm diameter parapelvic cyst in the lateral left kidney. Surgical changes from gastric bypass surgery are noted. OSSEOUS STRUCTURES: T2-3 demonstrates moderately severe disc space narrowing with endplate sclerosis and osteophytes. There is also degenerative endplate irregularity. There is also moderate disc space narrowing and vacuum phenomenon in the mid to upper thoracic spine. CT/CT chest wo IV con IMPRESSION: There are subtle groundglass densities in the upper lobes and focal airspace opacity in the central lingula. This could represent pneumonia, atypical pneumonia, drug reaction, or other hypersensitivity. Possible nodular hyperplasia of the right adrenal gland. Small pericardial effusion Fleischner guidelines were followed. Electronically signed by: Glenn Lockhart MD 04/30/2025 02:25 PM EDT Dictated By: Glenn Lockhart MD Signed By: <Electronically signed by Glenn Lockhart MD in OV> 04/30/25 1425 DD/ 1250 TD/TT: 04/30/25 1317 In House Counsel: Brittany Saldana MD IMG CT PROCEDURES Edited Result - Final * T3, Free (04/20/2025 8:35 AM EDT) [facility] T3, Free 2.6 2.3 - 4.2 pg/mL [facility] Comment:THIS TEST WAS PERFOR MED AT:[facility] [address] [id number] ZHAO MD Blood Venous blood specimen / Unknown 04/20/2025 8:35 AM EDT 04/20/2025 10:59 AM EDT Brittany Saldana MD LAB BLOOD ORDERABLES Fin al Result [facility] [address] [place] [phone] * (ABNORMAL) T3, Total (04/20/2025 8:35 AM EDT) [facility] T3, Total 62(A) 76 - 181 ng/dL [facility] Comment:THIS TEST WAS PERFOR MED AT:[facility] [address] [id number] ZHAO MD Blood Venous blood specimen / Unknown 04/20/2025 8:35 AM EDT 04/20/2025 10:59 AM EDT Brittany Saldana MD LAB BLOOD ORDERABLES Fin al Result Performing Organization Address City/[facility]/ZIP Co de Phone Number [facility] [address] [place] [phone] * TSH (04/20/2025 8:35 AM EDT) [facility] Thyroid Stimulating Hormone 1.13 0.32 - 4.0 uIU/mL [facility] Comment:TSH 3rd Generation ( [facility]) Blood Venous blood specimen / Unknown 04/20/2025 8:35 AM EDT 04/20/2025 10:59 AM EDT us Brittany Saldana MD LAB BLOOD ORDERABLES Fin al Result Performing Organization Address City/[facility]/ZIP Co de Phone Number [facility] [address] [place] [phone] * T4, Free (04/20/2025 8:35 AM EDT) Free T4 (Free Thyroxine) 1.11 0.71 - 1.85 ng/dL [facility] Blood Venous blood specimen / Unknown 04/20/2025 8:35 AM EDT 04/20/2025 10:59 AM EDT us Brittany Saldana MD LAB BLOOD ORDERABLES Fin al Result Performing Organization Address [facility] Co de Phone Number [facility] [address] [place] [phone] * T4 (Thyroxine), Total (04/20/2025 8:35 AM EDT) T4 Thyroxine 6.7 4.5 - 12.0 ug/dL [facility] Blood Venous blood specimen / Unknown 04/20/2025 8:35 AM EDT 04/20/2025 10:59 AM EDT us Brittany Saldana MD LAB BLOOD ORDERABLES Fin al Result Performing Organization Address [facility] Co de Phone Number [facility] [address] [place] [phone] * Albumin, Random Urine W/Creatinine (04/10/2025 10:21 AM EDT) Creatinine, Urine 61.10 mg/dL [facility] Microalbumin Urine 14.0 mg/L [facility] Microalbum Creatinine Ratio Ur 22.9 <30 ug/mg cr [facility] Comment:Albumin/Creatinine R atio Reference Ranges: Normal: < 30 ug/mg creatinine Microalbuminuria: 30 - 300 ug/mg creatinineClinical Albuminuria: > 300 ug/mg creatinine 04/10/2025 10:2 1 AM EDT 04/10/2025 11:06 AM EDT us Brittany Saldana MD LAB URINE ORDERABLES Fin al Result Performing Organization Address City/[facility]/ZIP Co de Phone Number [facility] [address] [place] [phone] * Hemoglobin A1c (04/06/2025 9:03 AM EDT) Hemoglobin A1c 5.0 <6.0 % [facility] Comment:Hemoglobin A1C Refer ence Range Adults: 4.8 - 6.0 % Non diabetic: < 6.0 % Goal: < 7.0 %Additional Action Suggested: > 8.0 %Note: Hemoglobin A1c results are invalid for patients with abnormal amounts of HbF. Blood transfusions may impact the HbA1c concentration in the patient sample. Estimated Average Glucose 97 mg/dL [facility] Comment:eAG = Estimated ave rage glucose which is %A1C expressed asaverage glucose, using the formula of the D7L-IuvzqsdGdblmcc Glucose study (ADAG), Diabetes Care, Vol.31,#8,Jun. 2007 04/06/2025 9:03 AM EDT 04/06/2025 11:03 AM EDT us Generic External Data Provider LAB BLOOD ORDERAB LES Final Result Performing Organization Address [facility]/ZIP Co de Phone Number [facility] [address] [place] [phone] * (ABNORMAL) Lipid Panel, Standard (04/06/2025 9:03 AM EDT) Triglycerides 63 <150 mg/dL [facility] Comment:Desirable Triglyceri de: less than 150 mg/dLBorderline High Triglyceride 150-199 mg/dLHigh Triglyceride: 200-499 mg/dLVery High Triglyceride: greater than or equal to 5OO mg/dL Cholesterol 124 <200 mg/dL [facility] Comment:Desirable Cholestero l: less than 200 mg/dLBorderline High Cholesterol: 200-239 mg/dLHigh Cholesterol: greater than 239 mg/dL LDL Cholesterol Calculated 75 <100 mg/dL [facility] Comment:Desirable LDL: less than 100 mg/dLNear Optimal/Above Optimal LDL: 110- 129 mg/dLBorderline High LDL: 130-159 mg/dLHigh LDL: 160-189 mg/dLVery High LDL: greater than or equal to 190 mg/dL HDL Cholesterol 37(L) >40 mg/dL [facility] Comment:Desirable HDL: great er than 40 mg/dL Note: This HDL assay may give artificially low results in patients with liver disease. 04/06/2025 9:03 AM EDT 04/06/2025 11:23 AM EDT us Generic External Data Provider LAB BLOOD ORDERAB LES Final Result Performing Organization Address [facility]/ZIP Co de Phone Number [facility] [address] [place] [phone] * (ABNORMAL) Hm Colonoscopy (09/19/2024) Pathologist [facility] Colonoscopy Normal Normal [facility] Comment:poor prep us Brittany Saldana MD HEALTH MAINTENANCE Final Result Performing Organization Address City/[facility]/ZIP Co de Phone Number [facility] [address] [place] [phone] * HEPATITIS C AB W/REFL TO HCV RNA, QN, PCR (12/09/2021 11:13 AM EST) Pathologist [facility] HEPATITIS C ANTIBODY NON-REACT JAMES NON-REACT JAMES [facility] INDEX 0.03 <1.00 [facility] Comment: HCV antibody was non-reactive. There is no laboratory evidence of HCV infection. In most cases, no further action is required. However, if recent HCV exposure is suspected, a test for HCV RNA (test code 53016) is suggested. For additional information please refer to http://education.[employer]/faq/LRU30s1 (This link is being provided for informational/ educational purposes only.) 12/09/2021 11:1 3 AM EST us Lulu Garcia ANP HISTORICAL/NON ORDERABLE LABS Fi nal Result [facility] [address] from Last 3 Months or Most Recently Relevant to Health Maintenance Insurance [facility] OPTIONS (HMO D-SNP) [facility] STANDARD Care Teams Wood Dowel Machine Operator Relationship Specialty Start Date End Date Brittany Saldana MD [address] [place] [address] PCP - General Family Medicine 05/08/20 Darrin Hernandez FNP [address] [place] [address] Nurse Practitioner Family Medicine 10/19/23
--- OUTSIDE RECORDS SUMMARY | 2025-07-12 14:55 | XMS_ITS | Encounter Summary ---
Author Organization [employer] Address [address] [place] [phone] Care Team Providers Care Semi Conductor Assembler Name Role Phone Brittany Saldana MD Primary Care Provider + Darrin Hernandez Unavailable Unavailable Reason for Visit * Reason Onset Date Comments Referral 09/24/2023 Encounter Details Date Type Department Care Team (Late st Contact Info) Description 09/24/2023 Telephone [facility] MEDICINE [address] [place] [address] Brittany Saldana MD [address] [place] [address] Referral Social History Tobacco Use Types Packs/Day [...] 9:02 AM EST Tc from sri with [facility] requesting a new order for Occupational therapy for weakness in hands. States they received the referral for Occupational therapy but dx says hip pain. Please fax to [phone] Any questions, please contact sri at [phone] documented in this encounter Plan of Treatment Upcoming Encounters Date Type Department Care Team (Late st Contact Info) Description 07/23/2025 11:30 AM EDT Clinical Support [facility] MEDICINE [address] [place] [phone] 08/07/2025 1:15 PM EDT Office Visit [facility] MEDICINE [address] [place] [phone] Brandon Caballero MD [address] [place] [phone] 08/22/2025 11:15 AM EDT Office Visit [facility] MEDICINE [address] [place] [address] Brittany Saldana MD [address] [place] [address] 09/13/2025 1:00 PM EDT Office Visit [facility] OPTOMETRY [address] [place] [address] Renetta Mitchell, OD [address] [place] [address] documented as of this encounter Visit Diagnoses Not on filedocumented in this encounter Additional Health Concerns Assessment Noted Time PHQ-9 Depression Total Score: 4 09/06/20 23 11:30 AM EDT documented as of this encounter Care Teams Semi Conductor Assembler Relationship Specialty Start Date End Date Brittany Saldana MD [address] [place] [phone] PCP - General Family Medicine 05/08/20 Darrin Hernandez FNP [address] [place] [address] Nurse Practitioner Family Medicine 10/19/23 documented as of this encounter
--- OUTSIDE RECORDS SUMMARY | 2025-07-12 14:55 | XMS_ITS | Encounter Summary ---
Author Organization [employer] Address [address] [place] [address] Care Team Providers Care Hospitalist Program Director Name Role Phone Brittany Saldana MD Primary Care Provider + Darrin Hernandez Unavailable Unavailable Reason for Visit * Reason Onset Date Comments Med Refill 01/09/2025 Encounter Details Date Type Department Care Team (Late st Contact Info) Description 01/09/2025 Refill [facility]ICINE [address] [place] [address] Brittany Saldana MD [address] [place] [address] Social History Tobacco Use Types Packs/Day Years [...] Description 07/23/2025 11:30 AM EDT Clinical Support [facility] MEDICINE [address] [place] [phone] 08/07/2025 1:15 PM EDT Office Visit [facility]INE [address] [place] [phone] Brandon Caballero MD [address] [place] [phone] 08/22/2025 11:15 AM EDT Office Visit [facility] MEDICINE [address] [place] [address] Brittany Saldana MD [address] [place] [address] 09/13/2025 1:00 PM EDT Office Visit [facility] OPTOMETRY [address] [place] [address] Renetta Mitchell OD [address] [place] [address] documented as of this encounter Goals Goal [...] documented as of this encounter Care Teams Hospitalist Program Director Relationship Specialty Start Date End Date Brittany Saldana MD [address] [place] [address] PCP - General Family Medicine 05/08/20 Darrin Hernandez FNP [address] [place] [address] Nurse Practitioner Family Medicine 10/19/23 documented as of this encounter
== END 2025-07-12 15:04 | disposition home or self-care (01) ==
LOC: HO.HCS 14:10
PROVIDERS: PCP Internal Medicine
DX: R07.9 Chest pain, unspecified (principal); I10 Essential (primary) hypertension; I49.9 Cardiac arrhythmia, unspecified; I50.30 Unspecified diastolic (congestive) heart failure; E78.5 Hyperlipidemia, unspecified; E11.9 Type 2 diabetes mellitus without complications
CPT/HCPCS: 99214; G2211

== ENCOUNTER → 2025-07-12 14:10 | Outpatient (BNVA) | payer OTHER, SELFPAY | PROVIDERS: PCP Internal Medicine | DX: I10 Essential (primary) hypertension (principal); E11.9 Type 2 diabetes mellitus without complications; E78.5 Hyperlipidemia, unspecified; R07.9 Chest pain, unspecified; R49.9 Unspecified voice and resonance disorder; I50.30 Unspecified diastolic (congestive) heart failure | CPT/HCPCS: 99212 ==

== ENCOUNTER 2025-08-16 07:29 | Outpatient (AMB) | payer OTHER, SELFPAY ==
--- OUTSIDE RECORDS SUMMARY | 2025-08-08 10:00 | XMS_ITS | Encounter Summary ---
Author Organization [employer] Address [address] [place] [address] [place] [address] Care Team Providers Care Hair Stylist Name Role Phone Brittany Saldana MD Primary Care Provider + Darrin Hernandez Unavailable Unavailable Reason for Visit * Reason Comments GBAT Encounter Details Date Type Department Care Team (Late st Contact Info) Description 08/08/2025 10:00 AM EDT Office Visit [facility] MEDICINE [address] [place] [address] Migue Stephens MD [address] [place] [address] Alcohol use disorder (Primary Dx); Essential (primary) hypertension Social History Tobacco Use [...] the past 12 months, has t he [employer], gas, oil or water company threatened to [...] Progress Notes * Migue Stephens MD - 08/08/2025 10:30 AM EDT LAST GBAT VISIT 08/01/2025 Patient presents for Group-Based Opioid Treatment for AUD Reviewed the group goals, expectations and policies Consented to the group treatment options Actively participated in the group discussion with the topic of: Step Forward/Learning Along the Way Following staff present at the visit: Physician, Vp Communications, Clinician, Team RN, and MedicalAssistant Opportunities provided to address individual medical/medication/BH concerns States doing well without cravings or relapse TODAY GBAT VISIT 08/08/2025 Patient presents for Group-Based Opioid Treatment for AUD Reviewed the group goals, expectations and policies Consented to the group treatment options Actively participated in the group discussion with the topic of: Guide to Developing Social Skillsin Groups Following staff present at the visit: Physician, Vp Communications, Clinician, Team RN, and MedicalAssistant Opportunities provided to address individual medical/medication/BH concerns States doing well without cravings or relapse Review of Systems Psychiatric/Behavioral: Negative for behavioral problems and dysphoric mood. The patient is not nervous/anxious. Physical Exam Constitutional: Appearance: Normal appearance. Pulmonary: Effort: Pulmonary effort is normal. Neurological: Mental Status: He is alert. Psychiatric: Mood and Affect: Mood normal. Behavior: Behavior normal. Dane was seen today for gbat. 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 Following staff present at the visit: Physician, Clinician, Vp Communications, Team RN, and MedicalAssistant Follow up in 1 week for the [...] Care Team (Late st Contact Info) Description 08/22/2025 11:15 AM EDT Office Visit [facility] MEDICINE [address] [place], [place] [phone] Brittany Saldana MD [address] [place] [address] 09/13/2025 1:00 PM EDT Office Visit [facility] OPTOMETRY [address] [place], [place] [phone] Renetta Mitchell, OD [address] [place] [address] 10/30/2025 1:00 PM EST Clinical Support [facility]ICINE [address] [place] [address] Janae Walden, RN documented as of this encounter Goals Goal Patient Goal Type Associated Problems Recent Progress Patient-Stated? Author Blood Pressure < 140/90 Blood Pressure 156/62(2024 1:41 PM EDT) No Venkatesh Skinner PharmD Decrease the frequency of unwanted emotions so that daily functioning is improved General On track( 025 4:48 PM EDT) No Janae Walden, CORTES Hemoglobin A1c < 7 Result Component 5(04/06/2025 9:03 AM EDT) No Venkatesh Skinner PharmD documented as of this encounter Visit Diagnoses Diagnosis Alcohol use disorder- Primary Essential (primary) hypertension Unspecified essential hypertension documented in this encounter Additional Health Concerns Assessment Noted Time PHQ-9 Depression Total Score: 2 12/07/19 25 10:39 AM EST documented as of this encounter Care Teams Hair Stylist Relationship Specialty Start Date End Date Brittany Saldana MD [address] [place] [address] PCP - General Family Medicine 05/08/20 Darrin Hernandez FNP [address] [place] [address] Nurse Practitioner Family Medicine 10/19/23 documented as of this encounter
--- OUTSIDE RECORDS SUMMARY | 2025-08-15 10:00 | XMS_ITS | Encounter Summary ---
Author Organization [employer] Address [address] [place] [address] [place] [address] Care Team Providers Care Coal Handling Supervisor Name Role Phone Brittany Saldana MD Primary Care Provider + Darrin Hernandez Unavailable Unavailable Reason for Visit * Reason Comments GBAT Encounter Details Date Type Department Care Team (Late st Contact Info) Description 08/15/2025 10:00 AM EDT Office Visit [facility] MEDICINE [address] [place] [address] Migue Stephens MD [address] [place] [address] Alcohol use disorder (Primary Dx) Social History Tobacco Use Types [...] the past 12 months, has t he [employer], gas, oil or water company threatened to [...] Progress Notes * Migue Stephens MD - 08/15/2025 10:00 AM EDT LAST GBAT VISIT 08/08/2025 Patient presents for Group-Based Opioid Treatment for AUD Reviewed the group goals, expectations and policies Consented to the group treatment options Actively participated in the group discussion with the topic of: Guide to Developing Social Skillsin Groups Following staff present at the visit: Physician, Neurological Physiotherapist, Clinician, Team RN, and MedicalAssistant Opportunities provided to address individual medical/medication/BH concerns States doing well without cravings or relapse TODAY GBAT VISIT 08/15/2025 Patient presents for Group-Based Opioid Treatment for AUD Reviewed the group goals, expectations and policies Consented to the group treatment options Actively participated in the group discussion with the topic of: Guide to Developing Social Skillsin Groups Following staff present at the visit: Physician, Neurological Physiotherapist, Clinician, Team RN, and MedicalAssistant Opportunities provided [...] faced situations that may trigger use 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 MEDICINE [address] [place], [place] [phone] Brittany Saldana MD [address] [place] [address] 09/13/2025 1:00 PM EDT Office Visit [facility] OPTOMETRY [address] [place], [place] [phone] Renetta Mitchell OD [address] [place] [address] 10/30/2025 1:00 PM EST Clinical Support [facility] [address] [place] [address] Janae Walden, RN documented as of this [...] Visit Diagnoses Diagnosis Alcohol use disorder- Primary documented in this encounter Additional Health Concerns Assessment Noted Time PHQ-9 Depression Total Score: 2 12/07/19 25 10:39 AM EST documented as of this encounter Care Teams Coal Handling Supervisor Relationship Specialty Start Date End Date Brittany Saldana MD [address] [place] [address] PCP - General Family Medicine 05/08/20 Darrin Hernandez FNP [address] [place] [address] Nurse Practitioner Family Medicine 10/19/23 documented as of this encounter
--- OUTSIDE RECORDS SUMMARY | 2025-08-16 07:32 | XMS_ITS | Patient Health Record ---
Author Organization [email or web address] Address [address] [facility] [facility] [address] [place] [address] Support Name Relationship Address Phone Dane Calles Guarantor Unknown [phone] Allergies Allergen (clinical drug ingredient) Drug/Non Drug [...] Disorder due to type 2 diabetes mellitus (889164004) Type 2 diabetes mellitus with unspecified complications (E11.8) Active confirmed Problem Morbid obesity (disorder) (479579002) Morbid (severe) obesity due to excess calories (E66.01) Active confirmed Problem Mixed hyperlipidemia (609940722) Mixed hyperlipidemia (E78.2) Active confirmed Problem Alcohol dependence (29283135) Alcohol dependence, uncomplicated (F10.20) Active confirmed Problem Mild recurrent major depression (19956833) Major depressive disorder, recurrent, mild (F33.0) Active confirmed Problem 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, intractable, 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) Active confirmed Problem 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, intractable, without status epilepticus (G40.219) Active confirmed Problem Obstructive sleep apnea syndrome (disorder) (46425300) Obstructive sleep apnea (adult) (pediatric) (G47.33) Active confirmed Problem Essential hypertension (11317628) Essential (primary) hypertension (I10) Active confirmed Problem Gastro-esophageal reflux disease without esophagitis (551828837) Gastro-esophageal reflux disease without esophagitis (K21.9) Active confirmed Problem Neurofibromatosis (43861376) Neurofibromatosis , 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) Active confirmed Problem Somnolence (44318728) Somnolence (R40.0) Active confirmed Problem Attention deficit hyperactivity disorder, predominantly inattentive type (disorder) (39702996) Attention and concentration deficit (R41.840) Active confirmed Problem Body mass index 40+ - severely obese (154218855) Body mass index (BMI) 40.0-44.9, adult (Z68.41) Active confirmed Problem Lower urinary tract symptoms due to benign prostatic hypertrophy (94105907382052) Benign prostatic hyperplasia with lower urinary tract symptoms (N40.1) Active confirmed Problem Morbid obesity (931972192) Morbid obesity (E66.01) Active confirmed Plan Of Treatment No Information Medical (General) History Medical History History ICD Code hypertension, benign acid reflux BPH see Urology Attention deficit disorder Neurofibromatosis complex partial seizure disorder Surgical History Surgery Date(Month/Year) Umblical hernia repair 2004 Tonsellectomy Cyst in throat removed
--- OUTSIDE RECORDS SUMMARY | 2025-08-16 07:32 | XMS_ITS | Encounter Summary ---
Author Organization [employer] Address [address] [place] [address] Care Team Providers Care Department Of Natural Resources Officer Name Role Phone Brittany Saldana MD Primary Care Provider + Darrin Hernandez Unavailable Unavailable Reason for Visit * Reason Comments Med Refill Encounter Details Date Type Department Care Team (Late st Contact Info) Description 06/03/2023 Refill [facility] MEDICINE [address] [place] [address] Darrin Hernandez FNP Depression, unspecified depression type [...] Description 08/22/2025 11:15 AM EDT Office Visit [facility] MEDICINE [address] [place] [address] Brittany Saldana MD [address] [place], [place] 09/13/2025 1:00 PM EDT Office Visit [facility] OPTOMETRY [address] [place] [address] Renetta Mitchell OD [address] [place], [place] 10/30/2025 1:00 PM EST Clinical Support [facility] MEDICINE [address] [place] [address] Janae Walden, CORTES documented as of this encounter Visit Diagnoses Diagnosis Depression, unspecified depression type documented in this encounter Additional Health Concerns Assessment Noted Time PHQ-9 Depression Total Score: 11 023 10:47 AM EDT documented as of this encounter Care Teams Department Of Natural Resources Officer Relationship Specialty Start Date End Date Brittany Saldana MD [address] [place] [address] PCP - General Family Medicine 05/08/20 Darrin Hernandez FNP [address] [place] [address] Nurse Practitioner Family Medicine 10/19/23 documented as of this encounter
--- OUTSIDE RECORDS SUMMARY | 2025-08-16 07:32 | XMS_ITS | Encounter Summary ---
Author Organization [employer] Address [address] [place] [address] Care Team Providers Care Nondestructive Tester Name Role Phone Brittany Saldana MD Primary Care Provider + Darrin Hernandez Unavailable Unavailable Reason for Visit * Reason Onset Date Comments Referral 09/02/2023 Encounter Details Date Type Department Care Team (Late st Contact Info) Description 09/02/2023 Telephone [facility] MEDICINE [address] [place] [address] Brittany Saldana MD [address] [place] [address] Referral Social History Tobacco Use Types Packs/Day [...] from pt requesting a new referral for Central Office Frame Wirer Specialist, pt stated needs a hearing test. documented in this encounter Plan of Treatment Upcoming Encounters Date Type Department Care Team (Late st Contact Info) Description 08/22/2025 11:15 AM EDT Office Visit [facility] MEDICINE [address] [place] [address] Brittany Saldana MD [address] [place] [address] 09/13/2025 1:00 PM EDT Office Visit [facility] OPTOMETRY [address] [place] [address] Renetta Mitchell OD [address] [place] [address] 10/30/2025 1:00 PM EST Clinical Support [facility] MEDICINE [address] [place] [address] Janae Walden, RN documented as of this encounter Visit Diagnoses Diagnosis 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
--- OUTSIDE RECORDS SUMMARY | 2025-08-16 07:32 | XMS_ITS | Encounter Summary ---
Author Organization [employer] Address [address] [place] [address] 7 [place] [address] Care Team Providers Care Overage Shortage And Damage Clerk Name Role Phone Brittany Saldana MD Primary Care Provider + Darrin Hernandez Unavailable Unavailable Reason for Visit * Reason Onset Date Comments Appointment 09/10/2023 Encounter Details Date Type Department Care Team (Late st Contact Info) Description 09/10/2023 Telephone [facility] ADULT DENTAL [address] [place] [address] Misbah Kerraris [address] [place] [address] Appointment Social History Tobacco Use Types Packs/Day [...] cleaning appt. Last appt he had in [place] was deep leaning in September and the [...] Description 08/22/2025 11:15 AM EDT Office Visit [facility] MEDICINE [address] [place], [place] [phone] Brittany Saldana MD [address] [place] [address] 09/13/2025 1:00 PM EDT Office Visit [facility] OPTOMETRY [address] [place], [place] [phone] Renetta Mitchell, OD [address] [place] [address] 10/30/2025 1:00 PM EST Clinical Support [facility] MEDICINE [address] [place] [address] Janae Walden, RN documented as of this encounter Visit Diagnoses Not on filedocumented in this encounter Additional Health Concerns Assessment Noted Time PHQ-9 Depression Total Score: 4 09/06/20 23 11:30 AM EDT documented as of this encounter Care Teams Overage Shortage And Damage Clerk Relationship Specialty Start Date End Date Brittany Saldana MD [address] [place] [address] PCP - General Family Medicine 05/08/20 Darrin Hernandez FNP [address] [place] [address] Nurse Practitioner Family Medicine 10/19/23 documented as of this encounter
--- OUTSIDE RECORDS SUMMARY | 2025-08-16 07:32 | XMS_ITS | Encounter Summary ---
Author Organization [employer] Address [address] [facility] 7 [place] [address] Care Team Providers Care Ditcher Name Role Phone Brittany Saldana MD Primary Care Provider + Darrin Hernandez Unavailable Unavailable Encounter Details Date Type Department Care Team (Latest Contact Info) Description 08/15/2025 Travel Social History Tobacco Use Types Packs/Day [...] Description 08/22/2025 11:15 AM EDT Office Visit [facility] MEDICINE [address] [place] [address] Brittany Saldana MD [address] [place] [address] 09/13/2025 1:00 PM EDT Office Visit [facility] OPTOMETRY [address] [place] [address] Renetta Mitchell OD [address] [place] [address] 10/30/2025 1:00 PM EST Clinical Support [facility] [address] [place] [address] Janae Walden, RN documented as of this [...] documented as of this encounter Care Teams Ditcher Relationship Specialty Start Date End Date Brittany Sladana MD [address] [place] [address] PCP - General Family Medicine 05/08/20 Darrin Hernandez FNP [address] [place] [address] Nurse Practitioner Family Medicine 10/19/23 documented as of this encounter
--- OUTSIDE RECORDS SUMMARY | 2025-08-16 07:32 | XMS_ITS | Encounter Summary ---
Author Organization [employer] Address [address] [place] [address] Care Team Providers Care Golf Club Head Former Name Role Phone Brittany Saldana MD Primary Care Provider + Darrin Hernandez Unavailable Unavailable Reason for Visit * Reason Onset Date Comments Med Refill 04/16/2024 Encounter Details Date Type Department Care Team (Late st Contact Info) Description 04/16/2024 Refill [facility] MEDICINE [address] [place] [address] Darrin Hernandez FNP PTSD (post-traumatic stress disorder) [...] Description 08/22/2025 11:15 AM EDT Office Visit [facility] MEDICINE [address] [place] [address] Brittany Saldana MD [address] [place] [address] 09/13/2025 1:00 PM EDT Office Visit [facility] OPTOMETRY [address] [place] [address] Renetta Mitchell, GLEN [address] [place] [address] 10/30/2025 1:00 PM EST Clinical Support [facility] MEDICINE [address] [place] [address] Janae Walden, CORTES documented as of this encounter Goals Goal Patient Goal Type Associated Problems Recent Progress Patient-Stated? Author Blood Pressure < 140/90 Blood Pressure 156/62(2024 1:41 PM EDT) No Venkatesh Skinner, PharmHillary Hemoglobin A1c < 7 Result Component 5(04/06/2025 9:03 AM EDT) No Venkatesh Skinner, Magnolia documented as of this encounter Visit Diagnoses Diagnosis PTSD (post-traumatic stress disorder) Posttraumatic stress disorder documented in this encounter Additional Health Concerns Assessment Noted Time PHQ-9 Depression Total Score: 4 03/06/20 24 2:22 PM EDT documented as of this encounter Care Teams Golf Club Head Former Relationship Specialty Start Date End Date Brittany Saldana MD [address] [place] [address] PCP - General Family Medicine 05/08/20 Darrin Hernandez FNP [address] [place] [address] Nurse Practitioner Family Medicine 10/19/23 documented as of this encounter
--- OUTSIDE RECORDS SUMMARY | 2025-08-16 07:32 | XMS_ITS | Encounter Summary ---
Author Organization [employer] Address [address] [place] [address] Care Team Providers Care Fusing Machine Operator Name Role Phone Brittany Saldana MD Primary Care Provider + Darrin Hernandez Unavailable Unavailable Reason for Visit * Reason Onset Date Comments r/s appt 12/24/2022 Encounter Details Date Type Department Care Team (Late st Contact Info) Description 12/24/2022 Telephone [facility] MEDICINE [address] [place] [address] Brittany Saldana MD [address] [place] [address] r/s appt Social History Tobacco Use Types [...] states his ride was not there ontime. 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 Please contact pt at [phone] documented in this encounter Plan of Treatment Upcoming Encounters Date Type Department Care Team (Late st Contact Info) Description 08/22/2025 11:15 AM EDT Office Visit [facility] MEDICINE [address] [place] [address] Brittany Saldana MD [address] [place] [address] 09/13/2025 1:00 PM EDT Office Visit [facility] OPTOMETRY [address] [place] [address] Renetta Mitchell, OD [address] [place] [address] 10/30/2025 1:00 PM EST Clinical Support [facility] MEDICINE [address] [place] [address] Janae Walden, RN documented as of this encounter Visit Diagnoses Not on filedocumented in this encounter Additional Health Concerns Assessment Noted Time PHQ-9 Depression Total Score: 9 11/05/20 22 9:37 AM EST documented as of this encounter Care Teams Fusing Machine Operator Relationship Specialty Start Date End Date Brittany Saldana MD [address] [place] [address] PCP - General Family Medicine 05/08/20 Darrin Hernandez FNP [address] [place] [address] Nurse Practitioner Family Medicine 10/19/23 documented as of this encounter
--- OUTSIDE RECORDS SUMMARY | 2025-08-16 07:32 | XMS_ITS | Encounter Summary ---
Author Organization [employer] Address [address] [place] [address] 7 [place] [address] Care Team Providers Care Risk Reduction Counselor Name Role Phone Brittany Saldana MD Primary Care Provider + Darrin Hernandez Unavailable Unavailable Encounter Details Date Type Department Care Team (Latest Contact Info) Description 08/07/2022 Abstract [facility] CONVERSIONS Dental, Provider, DDS Social [...] Description 08/22/2025 11:15 AM EDT Office Visit [facility] MEDICINE [address] [place] [address] Brittany Saldana MD [address] [place] [address] 09/13/2025 1:00 PM EDT Office Visit [facility] OPTOMETRY [address] [place], [place] [phone] Renetta Mitchell OD [address] [place] [address] 10/30/2025 1:00 PM EST Clinical Support [facility] MEDICINE [address] [place] [address] Janae Walden, CORTES documented as of this encounter Visit Diagnoses Not on filedocumented in this encounter Care Teams Risk Reduction Counselor Relationship Specialty Start Date End Date Brittany Saldana MD [address] [place] [address] PCP - General Family Medicine 05/08/20 Darrin Hernandez FNP [address] [place] [address] Nurse Practitioner Family Medicine 10/19/23 documented as of this encounter
--- OUTSIDE RECORDS SUMMARY | 2025-08-16 07:32 | XMS_ITS | Encounter Summary ---
Author Organization [employer] Address [address] [place] [address] 7 [place] [address] Care Team Providers Care Assembler Dry Cell And Battery Name Role Phone Brittany Saldana MD Primary Care Provider + Darrin Hernandez Unavailable Unavailable Reason for Visit * Reason Comments Recovery Supports Encounter Details Date Type Department Care Team (Late st Contact Info) Description 08/14/2025 Patient Outreach [facility] MEDICINE [address] [place] [address] Ted Olvera Recovery Supports Social History Tobacco [...] encounter Progress Notes * Ted Olvera - 08/14/2025 3:39 PM EDT I met with Dane ruff. Setting: in person at [facility] Recovery Wellness Goals worked on: Physical Health/Mental Health Social Stability Spiritual Wellness Action taken/next steps: Attended recovery support group Contingency management Additional comments: Ted Olvera documented in this encounter Plan of Treatment Upcoming Encounters Date Type Department Care Team (Late st Contact Info) Description 08/22/2025 11:15 AM EDT Office Visit [facility] MEDICINE [address] [place] [address] Brittany Saldana MD [address] [place] [address] 09/13/2025 1:00 PM EDT Office Visit [facility] OPTOMETRY [address] [place] [address] Renetta Mitchell OD [address] [place] [address] 10/30/2025 1:00 PM EST Clinical Support [facility] MEDICINE [address] [place] [address] Janae Walden, RN documented as of this encounter Goals Goal Patient Goal Type Associated Problems Recent Progress Patient-Stated? Author Blood Pressure < 140/90 Blood Pressure 156/62(2024 1:41 PM EDT) No Venkatesh Skinner PharmD Decrease the frequency of unwanted emotions so that daily functioning is improved General On track( 4:48 PM EDT) No Janae Walden, CORTES [...] Date End Date Brittany Saldana MD [address] [place] [address] PCP - General Family Medicine 05/08/20 Darrin Hernandez FNP [address] [place] [address] Nurse Practitioner Family Medicine 10/19/23 documented as of this encounter
--- OUTSIDE RECORDS SUMMARY | 2025-08-16 07:33 | XMS_ITS | Encounter Summary ---
Author Organization [employer] Address [address] [place] [address] Care Team Providers Care Starch Crab Name Role Phone Brittany Saldana MD Primary Care Provider + Darrin Hernandez Unavailable Unavailable Reason for Visit * Reason Onset Date Comments Med Refill 06/15/2024 Encounter Details Date Type Department Care Team (Late st Contact Info) Description 06/15/2024 Refill [facility] MEDICINE [address] [place] [address] Brittany Saldana MD [address] [place] [address] Acute insomnia Social History Tobacco Use Types [...] the past 12 months, has t he [employer] gas, oil or water company threatened to [...] Description 08/22/2025 11:15 AM EDT Office Visit [facility] MEDICINE [address] [place] [address] Brittany Saldana MD [address] [place] [address] 09/13/2025 1:00 PM EDT Office Visit [facility] OPTOMETRY [address] [place] [address] Renetta Mitchell, GLEN [address] [place] [address] 10/30/2025 1:00 PM EST Clinical Support [facility] MEDICINE [address] [place] [address] Janae Walden, CORTES documented as of this encounter Goals Goal Patient Goal Type Associated Problems Recent Progress Patient-Stated? Author Blood Pressure < 140/90 Blood Pressure 156/62(2024 1:41 PM EDT) No Venkatesh Skinner, PharmD Hemoglobin A1c < 7 Result Component 5(04/06/2025 9:03 AM EDT) Venkatesh Mccann, CarlosD documented as of this encounter Visit Diagnoses Diagnosis Acute insomnia documented in this encounter Additional Health Concerns Assessment Noted Time PHQ-9 Depression Total Score: 4 03/06/20 24 2:22 PM EDT documented as of this encounter Care Teams Starch Crab Relationship Specialty Start Date End Date Brittany Saldana MD [address] [place] [address] PCP - General Family Medicine 05/08/20 Darrin Hernandez FNP [address] [place] [address] Nurse Practitioner Family Medicine 10/19/23 documented as of this encounter
--- OUTSIDE RECORDS SUMMARY | 2025-08-16 07:33 | XMS_ITS | Encounter Summary ---
Author Organization [employer] Address [address] [place] [address] Care Team Providers Care Logging Tractor Operator Swamp Name Role Phone Brittany Saldana MD Primary Care Provider + Darrin Hernandez Unavailable Unavailable Reason for Visit * Reason Onset Date Comments Durable Medical Equipment 01/05/2023 Encounter Details Date Type Department Care Team (Late st Contact Info) Description 01/05/2023 Telephone [facility] MEDICINE [address] [place] [address] Brittany Saldana MD [address] [place] [address] Durable Medical Equipment Social History Tobacco Use [...] If any questions please contact pt at [phone] documented in this encounter Plan of Treatment Upcoming Encounters Date Type Department Care Team (Late st Contact Info) Description 08/22/2025 11:15 AM EDT Office Visit [facility] MEDICINE [address] [place] [address] Brittany Saldana MD [address] [place] [address] 09/13/2025 1:00 PM EDT Office Visit [facility] OPTOMETRY [address] [place] [address] Renetta Mitchell, OD [address] [place] [address] 10/30/2025 1:00 PM EST Clinical Support [facility] MEDICINE [address] [place] [address] Janae Walden, CORTES documented as of this encounter Visit Diagnoses Not on filedocumented in this encounter Additional Health Concerns Assessment Noted Time PHQ-9 Depression Total Score: 4 12/31/19 23 10:56 AM EST documented as of this encounter Care Teams Logging Tractor Operator Swamp Relationship Specialty Start Date End Date Brittany Saldana MD [address] [place] [address] PCP - General Family Medicine 05/08/20 Darrin Hernandez FNP [address] [place] [address] Nurse Practitioner Family Medicine 10/19/23 documented as of this encounter
--- OUTSIDE RECORDS SUMMARY | 2025-08-16 07:33 | XMS_ITS | Encounter Summary ---
Author Organization [employer] Address [address] [place] [address] [place] [address] Care Team Providers Care Soldering Technician Name Role Phone Brittany Saldana MD Primary Care Provider + Darrin Hernandez Unavailable Unavailable Reason for Visit * Reason Onset Date Comments Med Refill 05/20/2024 Encounter Details Date Type Department Care Team (Late st Contact Info) Description 05/20/2024 Refill [facility] MEDICINE [address] [place] [address] Darrin Hernandez FNP Social History Tobacco Use [...] Description 08/22/2025 11:15 AM EDT Office Visit [facility] MEDICINE [address] [place] [address] Brittany Saldana MD [address] [place] [address] 09/13/2025 1:00 PM EDT Office Visit [facility] OPTOMETRY [address] [place] [address] Renetta Mitchell, OD [address] [place] [address] 10/30/2025 1:00 PM EST Clinical Support [facility] MEDICINE [address] [place] [address] Janae Walden, CORTES documented as of this encounter Goals Goal Patient Goal Type Associated Problems Recent Progress Patient-Stated? Author Blood Pressure < 140/90 Blood Pressure 156/62(2024 1:41 PM EDT) No Venkatesh Skinner, Magnolia Hemoglobin A1c < 7 Result Component 5(04/06/2025 9:03 AM EDT) No Venkatesh Skinner PharmD documented as of this encounter Visit Diagnoses Not on filedocumented in this encounter Additional Health Concerns Assessment Noted Time PHQ-9 Depression Total Score: 4 03/06/20 24 2:22 PM EDT documented as of this encounter Care Teams Soldering Technician Relationship Specialty Start Date End Date Brittany Saldana MD [address] [place] [address] PCP - General Family Medicine 05/08/20 Darrin Hernandez FNP [address] [place] [address] Nurse Practitioner Family Medicine 10/19/23 documented as of this encounter
--- OUTSIDE RECORDS SUMMARY | 2025-08-16 07:33 | XMS_ITS | Encounter Summary ---
Author Organization [employer] Address [address] [place] [address] Care Team Providers Care Community Health Worker Name Role Phone Brittany Saldana MD Primary Care Provider + Darrin Hernandez Unavailable Unavailable Reason for Visit * Reason Onset Date Comments Med Refill 06/11/2024 Encounter Details Date Type Department Care Team (Late st Contact Info) Description 06/11/2024 Refill [facility] [address] [place] [address] Brittany Saldana MD [address] [place] [address] Social History Tobacco Use Types Packs/Day Years [...] Description 08/22/2025 11:15 AM EDT Office Visit [facility] [address] [place] [address] Brittany Saldana MD [address] [place] [address] 09/13/2025 1:00 PM EDT Office Visit [facility] [address] [place] [address] Renetta Mitchell OD [address] [place] [address] 10/30/2025 1:00 PM EST Clinical Support [facility] [address] [place] [address] Janae Walden, CORTES documented as of this encounter Goals Goal Patient Goal Type Associated Problems Recent Progress Patient-Stated? Author Blood Pressure < 140/90 Blood Pressure 156/62(2024 1:41 PM EDT) No Venkatesh Skinner, CarlosD Hemoglobin A1c < 7 Result Component 5(04/06/2025 9:03 AM EDT) Venkatesh Mccann, Magn[place] documented as of this encounter Visit Diagnoses Not on filedocumented in this encounter Additional Health Concerns Assessment Noted Time PHQ-9 Depression Total Score: 4 03/06/20 24 2:22 PM EDT documented as of this encounter Care Teams Community Health Worker Relationship Specialty Start Date End Date Brittany Saldana MD [address] [place] [address] PCP - General Family Medicine 05/08/20 Darrin Hernandez FNP [address] [place] [address] Nurse Practitioner Family Medicine 10/19/23 documented as of this encounter
--- OUTSIDE RECORDS SUMMARY | 2025-08-16 07:33 | XMS_ITS | Data Portability ---
Author Organization [place] - [facility], Allergy Address [address] [address] Care Team Providers Care Intelligence Clerk Name Role Phone AGUEDA ROUSSEAU Referring Provider Assessment Encounter Date Assessment Date Assessment LastModified by Organization Details LastModified Time 06/06/2025 06/06/2025 70-year-old male presents for evaluation of disequilibrium. He has a history of right-sided sudden hearing loss, since returned to baseline. Otologic exam demonstrates TMs and external auditory canals are normal to inspection. Audiometric testing shows normal sloping to severe sensorineural hearing loss. Left ear with excellent word recognition, right ear with 88% word recognition. We discussed that his SNHL asymmetry warrants retrocochlear workup, but patient prefers to observe at this time as his hearing and bilateral tinnitus are stable. We discussed the patient is a candidate for right sided amplification, and he would like to pursue a hearing aid evaluation. Recommend repeat audiometric testing in 6-12 months, sooner with sudden hearing changes. [place] was negative for vertigo and rotary nystagmus. 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 The pathophysiology of BPPV was discussed in detail. Will refer to vestibular therapy for management as this has been a chronic issue. [email or web address] Not available 06/06/2025 12:11:05 Plan of Treatment Reminders Order Date Submit Date Provider Last Modified By Organization Details Last Modified Time Details Appointments None recorded. Lab None recorded. Referral vestibular therapy referral 2024 025 [facility] [place], [address] [place] [address], [place], [address], 5 10:49:53 Procedures None recorded. Surgeries None recorded. Imaging None recorded. Medication Orders None recorded. Patient TargetsNo targets recorded. Patient InstructionsNo instructions recorded. Reason for Referral Vestibular Therapy Referral for Vertigo Referring Physician: Maximo Robins, Otolaryngology, Encounter Date: 06/06/2025 Results Created Date Observation Date Name Description Value Unit Range Abnormal Flag Note LastModifiedBy Organization Detail LastModifiedTime 06/06/20 audio gram No observ ation record ed. BARCODE Not Available 2024 13:42:08 Result Notes None recorded. 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 Neurofibr omatosis, unspecifi ed; Note: Date Diagnosed : 9 3:24 PM (Q85.00) Not Available [facility] 4 03:19:10 Impacted cerumen of bilateral ears 38616871147 15130 Active 2018 Impacted cerumen, bilateral ; Note: Date Diagnosed : 9 3:23 PM (H61.23) Not Available [facility] 4 03:19:10 Sensorine ural hearing loss of bilateral ears 329616203 Active 2018 Sensorine ural hearing loss, bilateral ; Note: Date Diagnosed : 9 10:13 AM (H90.3) Not Available [facility] 4 03:19:11 Follow-up visit Active 2019 Encounter for follow-up examinati on after completed treatment for condition s other than malignant neoplasm; Note: Date Diagnosed : 12/22/2019 11:28 AM (Z09) Not Available [facility] 4 03:19:10 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,[place] [address], [place], [address] , [place] - [facility] 5 11:02:48 Vertigo 871060505 Active 2024 MAXIMO ROBINS PA-C 100 [facility], [place], [address] , [place] - [facility] 5 11:02:54 Problem Notes None recorded. Procedures Surgical History Date Name Laterality Status Provider Name and Address Organization Details Recorded Time 06/06/2025 Comp Audio with Tymps - 93384 & 84110 completed ROD RICH [address] [facility],[place] [address], [place], [address], [facility] 06/06/2025 09:54:56 Imaging Results None recorded. Procedure Notes None recorded. Medical Equipment None Reported. Allergies Allergen ID Allergen Name Allergen Category Reaction Reaction Severity Criticality Documentation Date Start Date Code Code System Note Provider Name and Address Organization Details Recorded Time 067983 penicilli n V potassium medicatio n other Not available Not available 03/28/2024 5 RxNorm React ion: unkno wn, unspe cifie d;; Not Available [facility] 4 01:25:46 Medications Name Sig Start Date Stop Date Status Note LastModified by Organization Details LastModified Time metformin 500 mg tablet 2019 active Medicati on ID: 360210 D uration Value: 90 Brand Name: metformi n Send Method: E-Prescr ibed Sub s Allowed: subs OK Speci al Instruct ion: TAKE 1 TABLET BY MOUTH TWICE A DAY WITH MORNING AND EVENING MEALS Me dication GenericN maryanne: metformi n Not Available Not Available Not Available clonidine HCl 0.1 mg tablet TAKE 1 TABLET BY MOUTH AT BEDTIME active Not Available Not Available No t Available atorvasta tin 20 mg tablet TAKE 1 TABLET BY MOUTH AT BEDTIME (for choleste rol) active Not Available Not Available No t Available prednison e 20 mg tablet TAKE 1 TABLET BY MOUTH EVERY DAY FOR 10 DAYS active Not Available Not Available No t Available felodipin e ER 5 mg tablet,ex tended release 24 hr 2018 active Medicati on ID: [id number] D uration Value: 90 Brand Name: felodipi ne Send Method: E-Prescr ibed Sub s Allowed: subs OK Speci al Instruct ion: TK 1 T PO QD Medic ationGen ericName : felodipi ne Not Available Not Available Not Available omeprazol e 40 mg capsule,d elayed release 06/06 completed Medicati on ID: [id number] D uration Value: 90 Brand Name: omeprazo le Send Method: E-Prescr ibed Sub s Allowed: subs OK Speci al Instruct ion: TAKE ONE CAPSULE BY MOUTH EVERY DAY [facility] nericNam e: omeprazo le Not Available Not Available Not Available ketorolac 0.5 % eye drops INSTILL 1 DROP AFFECTED EYE(S) THREE TIMES DAILY STARTING 2 DAYS BEFORE SURGERY active Not Available Not Available No t Available tamsulosi n 0.4 mg capsule 2018 active Medicati on ID: [id number] D uration Value: 90 Brand Name: tamsulos in Send Method: E-Prescr ibed Sub s Allowed: subs OK Rere al Instruct ion: TK 1 C PO QD Medic ationGen ericName : tamsulos in Not Available Not Available Not Available trazodone 100 mg tablet TAKE 2 TABLETS BY MOUTH EVERY DAY AT BEDTIME active Not Available Not Available No t Available meclizine 25 mg tablet TAKE 1 TABLET BY MOUTH THREE TIMES DAILY IN THE MORNING, AT NOON, AND AT BEDTIME NEEDED FOR DIZZINES S active Not Available Not Available No t Available olopatadi ne 0.1 % eye drops INSTILL 1 DROP IN EACH EYE TWICE DAILY 06/06 completed Not Available Not Available Not Available dextroamp hetamine- amphetami ne 20 mg tablet 06/06 completed Medicati on ID: [id number] D uration Value: 30 Brand Name: dextroam phetamin e-amphet amine Se nd Method: E-Prescr ibed Sub s Allowed: subs OK Medic ationGen ericName : dextroam phetamin e-amphet amine Not Available Not Available Not Available docusate sodium 100 mg capsule TAKE 1 CAPSULE BY MOUTH TWICE DAILY NEEDED active Not Available Not Available No t Available gabapenti n 300 mg capsule TAKE 1 CAPSULE BY MOUTH THREE TIMES DAILY active Not Available Not Available No t Available folic acid 1 mg tablet TAKE 1 TABLET BY MOUTH EVERY MORNING ( VITAMIN) 06/06 completed Not Available Not Available Not Available metoprolo l succinate ER 25 mg tablet,ex tended release 24 hr TAKE 1 TABLET BY MOUTH EVERY DAY active Not Available Not Available No t Available lisinopri l 40 mg tablet 2018 active Medicati on ID: [id number] D uration Value: 90 Brand Name: lisinopr il Send Method: E-Prescr ibed Sub s Allowed: subs OK Melaniei al Instruct ion: TK 1 T PO QD Medic [facility] ericName : lisinopr il Not Available Not Available Not Available fluticaso ne propionat e 50 mcg/actua tion nasal spray,aaron pension INSTILL 1-2 SPRAYS IN EACH NOSTRIL ONCE DAILY NEEDED active Not Available Not Available No t Available methylphe nidate ER 36 mg tablet,ex tended release 24 hr TAKE 1 TABLET BY MOUTH EVERY DAY IN THE MORNING DO NOT BREAK, CRUSH, DISSOLVE OR CHEW active Not Available Not Available No t Available bupropion HCl XL 300 mg 24 hr tablet, extended release TAKE 1 TABLET BY MOUTH EVERY MORNING active Not Available Not Available No t Available tadalafil 20 mg tablet TAKE ONE TABLET BY MOUTH EVERY DAY FOR SEXUAL ACTIVITY - OR WHEN NEEDED 60 MINUTES BEFORE active Not Available Not Available No t Available ProAir HFA 90 mcg/actua tion aerosol inhaler 2018 active Medicati on ID: [id number] D uration Value: 50 Brand Name: ProAir HFA Send Method: E-Prescr ibed Sub s Allowed: subs OK Speci al Instruct ion: INL 2 PFS PO Q 4 H PRN Medi cationGe nericNam e: ProAir HFA Not Available Not Available Not Available aripipraz ole 2 mg tablet TAKE 1 TABLET BY MOUTH ONCE DAILY 06/06 completed Not Available Not Available Not Available melatonin 5 mg tablet TAKE 1 TABLET BY MOUTH EVERY DAY AT BEDTIME active Not Available Not Available No t Available cholecalc iferol (vitamin D3) 50 mcg (2,000 unit) capsule 06/06 completed Medicati on ID: [id number] D uration Value: 90 Brand Name: cholecal ciferol (vitamin D3) Send Method: E-Prescr ibed Sub s Allowed: subs OK Speci al Instruct ion: TAKE 2 CAPSULES BY MOUTH EVERY DAY Medi cationGe nericNam e: cholecal ciferol (vitamin D3) Not Available Not Available Not Available sodium,po tassium,m ag sulfates 17.5 gram-3.13 gram-1.6 gram oral soln FOLLOW INSTRUCT ION SHEET GIVEN TO YOU AT YOUR DOCTOR'S OFFICE DIRECTED . DILUTE AND DRINK 1/2 AT 6-8PM AND 1/2 AT 11PM-1AM active Not Available Not Available No t Available Certavite -Antioxid ant 18 mg-400 mcg tablet TAKE 1 TABLET BY MOUTH EVERY MORNING 06/06 completed Not Available Not Available Not Available CertaVite Senior 0.4 mg-300 mcg-250 mcg tablet TAKE 1 TABLET BY MOUTH EVERY MORNING 06/06 completed Not Available Not Available Not Available Vitals Date Recorded Body height Body mass index (BMI) Body weight Provider Name and Address Organization Details Last Updated DateTime 06/06/2025 160.02 cm 24.8 kg/m2 65914.93 g Stephanie Velázquez [place] - [facility] 06/06/2025 10:05:26 Social History None recorded. Functional Status None recorded. Mental Status None recorded. Family History Nothing Reported. Medical History Condition Response Heart Problems Arthritis Y Hypertension Y Anxiety Y Asthma Y Past Encounters Encounter ID Performer Location Encounter Start Date Encounter Closed Date Diagnosis/Indication Diagnosis SNOMED-CT Code Diagnosis ICD10 Code Diagnosis IMO Codes Diagnosis Note [id number] MAXIMO ROBINS PA-C [facility] [address] [address] 06/06/2025 09:23:34 06/06/2025 12:24:03 Sensorineural hearing loss of bilateral ears 081526302 H90.3 Audiologic al evaluation results: Right ear: Normal sloping to severe sensorineu ral hearing loss with very good word recognitio n. Left ear: Normal through 2 kHz sloping to severe sensorineu ral hearing loss with excellent word recognitio n. Tympanomet ry: Right Ear:Type A Left Ear:Type A Bilateral tinnitus 41654 14376 102 H93.13 716379 Vertigo 505888191 R42 71289 Health Concerns Section Related Observation LastModified by Organization Detai ls LastModified Time None Recorded Concern Status LastModified by Organization Details LastModified Time None Recorded Advance Directives Directive None Recorded Payers Insurance Date Sequence Insurance Name Policy Number Policy Velasco Covered Member ID Velasco Member ID Guarantor Name 06/06/2025 1 [facility] Dane Calles [id number] Dane Calles 08/06/2025 1 [facility] - DOS ON OR AFTER 2023 - MEDICARE ADVANTAGE [place] (MEDICARE REPLACEMENT/AD VANTAGE - PPO) Dane Calles [id number] Dane Calles 08/06/2025 2 MEDICAID-[place]: [facility] Dane Calles [id number] Dane Calles Notes Date Note Type Note Provider Name and Address Organization Details Recorded Time 06/06/2025 text/html ROS as noted in the HPI 70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 This started 3 years ago. He reports room-spinning dizziness 3x daily without trigger. The spinning sensation lasts less than one minute. He uses cane to ambulate, and has had multiple falls. Endorses chronic bilateral tinnitus is stable. Occasional difficulty hearing with background noise. He takes many medications that make affect his balance. 09/2024 MRI brain was negative for acute intracranial pathology. 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 MAXIMO ROBINS PA-C [address] [place] [address], [place], [address], [facility] - [facility] 06/06/2025 12:11:20
--- OUTSIDE RECORDS SUMMARY | 2025-08-16 07:33 | XMS_ITS | Encounter Summary ---
Author Organization [employer] Address [address] [place] [address] 7 [place] [address] Care Team Providers Care Animal Nutritionist Name Role Phone Brittany Saldana MD Primary Care Provider + Darrin Hernandez Unavailable Unavailable Encounter Details Date Type Department Care Team (Late st Contact Info) Description 08/07/2025 Orders Only [facility] [address] [place] [address] ProviderDavid MD Social History Tobacco Use Types Packs/Day Years [...] Description 08/22/2025 11:15 AM EDT Office Visit [facility] [address] [place] [address] Brittany Saldana MD 230 [place] [address] 09/13/2025 1:00 PM EDT Office Visit [facility] [address] [place] [address] Renetta Mitchell, GLEN [address] [place] [address] 10/30/2025 1:00 PM EST Clinical Support [facility] [address] [place] [address] Janae Walden, CORTES documented as of this encounter Goals Goal Patient Goal Type Associated Problems Recent Progress Patient-Stated? Author Blood Pressure < 140/90 Blood Pressure 156/62(2024 1:41 PM EDT) No Venkatesh Skinner, PharmD Decrease the frequency of unwanted emotions so that daily functioning is improved General On track( 025 4:48 PM EDT) No Janae Walden, RN Hemoglobin A1c < 7 Result Component 5(04/06/2025 9:03 AM EDT) No Venkatesh Skinner PharmD documented as of this encounter Procedures Procedure Name Priority Date/Time Associated Diagnosis Comments CT CHEST WO CONTRAST Routine 07/31/2025 9:22 AM EDT documented in this encounter Results * CT CHEST WO CONTRAST (07/31/2025 9:22 AM EDT) Anatomical Region Laterality Modality Computed Tomogra phy Historical Provider MD NOL[facility] CT PROCEDURES Final R esult documented in this encounter Visit Diagnoses Not on filedocumented in this encounter Additional Health Concerns Assessment Noted Time PHQ-9 Depression Total Score: 2 12/07/19 25 10:39 AM EST documented as of this encounter Care Teams Animal Nutritionist Relationship Specialty Start Date End Date Brittany Saldana MD [address] [place] [address] PCP - General Family Medicine 05/08/20 Darrin Hernandez FNP [address] [place] [address] Nurse Practitioner Family Medicine 10/19/23 documented as of this encounter
--- OUTSIDE RECORDS SUMMARY | 2025-08-16 07:33 | XMS_ITS | Encounter Summary ---
Author Organization [employer] Address [address] [place] [address] Care Team Providers Care Dictaphone Transcriber Name Role Phone Brittany Saldana MD Primary Care Provider + Darrin Hernandez Unavailable Unavailable Reason for Visit * Reason Onset Date Comments Med Refill 06/19/2024 Encounter Details Date Type Department Care Team (Late st Contact Info) Description 06/19/2024 Refill [facility] [address] [place] [address] Brittany Saldana MD [address] [place] [address] Alcoholism (CMS/HCC); Essential (primary) hypertension Social History [...] Description 08/22/2025 11:15 AM EDT Office Visit [facility] [address] [place] [address] Brittany Saldana MD [address] [place] [address] 09/13/2025 1:00 PM EDT Office Visit [facility] [address] [place] [address] Renetta Mitchell OD [address] [place] [address] 10/30/2025 1:00 PM EST Clinical Support [facility] [address] [place] [address] Janae Walden, RN documented as of this encounter Goals Goal Patient Goal Type Associated Problems Recent Progress Patient-Stated? Author Blood Pressure < 140/90 Blood Pressure 156/62(2024 1:41 PM EDT) No Venkatesh Skinner, CarlosD Hemoglobin A1c < 7 Result Component 5(04/06/2025 9:03 AM EDT) No Venkatesh Skinner, Magn[place] documented as of this encounter Visit Diagnoses Diagnosis Alcoholism (CMS/HCC) (HCC) Other and unspecified alcohol dependence, unspecified drinking behavior Essential (primary) hypertension Unspecified essential hypertension documented in this encounter Additional Health Concerns Assessment Noted Time PHQ-9 Depression Total Score: 4 03/06/20 24 2:22 PM EDT documented as of this encounter Care Teams Dictaphone Transcriber Relationship Specialty Start Date End Date Brittayn Saldana MD [address] [place] [address] PCP - General Family Medicine 05/08/20 Darrin Hernandez FNP [address] [place] [address] Nurse Practitioner Family Medicine 10/19/23 documented as of this encounter
--- OUTSIDE RECORDS SUMMARY | 2025-08-16 07:33 | XMS_ITS | Encounter Summary ---
Author Organization [employer] Address [address] [place] [address] [place] [address] Care Team Providers Care Service Technician Copier Name Role Phone Brittany Saldana MD Primary Care Provider + Darrin Hernandez Unavailable Unavailable Reason for Visit * Reason Onset Date Comments Med Refill 08/03/2024 Encounter Details Date Type Department Care Team (Late st Contact Info) Description 08/03/[address] [facility] [address] [place] [address] [facility] [address] [place] [address] Mild intermittent asthma without complication Social History [...] the past 12 months, has t he ?, gas, oil or water company threatened to [...] Description 08/22/2025 11:15 AM EDT Office Visit [facility] [address] [place] [address] Brittany Saldana MD [address] [place] [address] 09/13/2025 1:00 PM EDT Office Visit [facility] [address] [place] [address] Renetta Mitchell, GLEN [address] [place] [address] 10/30/2025 1:00 PM EST Clinical Support [facility] [address] [place] [address] Janae Walden, CORTES documented as of this encounter Goals Goal Patient Goal Type Associated Problems Recent Progress Patient-Stated? Author Blood Pressure < 140/90 Blood Pressure 156/62(2024 1:41 PM EDT) No Venkatesh Siknner, PharmD Hemoglobin A1c < 7 Result Component 5(04/06/2025 9:03 AM EDT) Venkatesh Mccann, CarlosD documented as of this encounter Visit Diagnoses Diagnosis Mild intermittent asthma without complication documented in this encounter Additional Health Concerns Assessment Noted Time PHQ-9 Depression Total Score: 4 03/06/20 24 2:22 PM EDT documented as of this encounter Care Teams Service Technician Copier Relationship Specialty Start Date End Date Brittany Saldana MD [address] [place] [address] PCP - General Family Medicine 05/08/20 Darrin Hernandez FNP [address] [place] [address] Nurse Practitioner Family Medicine 10/19/23 documented as of this encounter
--- OUTSIDE RECORDS SUMMARY | 2025-08-16 07:33 | XMS_ITS | Encounter Summary ---
Author Organization [employer] Address [address] [place] [address] Care Team Providers Care Lithoplate Maker Name Role Phone Brittany Saldana MD Primary Care Provider + Darrin Hernandez Unavailable Unavailable Reason for Visit * Reason Onset Date Comments Med Refill 08/11/2024 Encounter Details Date Type Department Care Team (Late st Contact Info) Description 08/11/2024 Refill [facility] [address] [place] [address] Brittany Saldana MD [address] [place] [address] Mild intermittent asthma without complication Social History [...] the past 12 months, has t he [employer], gas, oil or water company threatened to [...] Description 08/22/2025 11:15 AM EDT Office Visit [facility] [address] [place] [address] Brittany Saldana MD [address] [place] [address] 09/13/2025 1:00 PM EDT Office Visit [facility] [address] [place] [address] Renetta Mitchell, GLEN [address] [place] [address] 10/30/2025 1:00 PM EST Clinical Support [facility] [address] [place] [address] Janae Walden, CORTES documented as of this [...] documented as of this encounter Care Teams Lithoplate Maker Relationship Specialty Start Date End Date Brittany Saldana MD [address] [place] [address] PCP - General Family Medicine 05/08/20 Darrni Hernandez FNP [address] [place] [address] Nurse Practitioner Family Medicine 10/19/23 documented as of this encounter
--- OUTSIDE RECORDS SUMMARY | 2025-08-16 07:33 | XMS_ITS | Encounter Summary ---
Author Organization [employer] Address [address] [place] [address] Care Team Providers Care Voltage Tester Name Role Phone Brittany Saldana MD Primary Care Provider + Darrin Hernandez Unavailable Unavailable Reason for Visit * Reason Onset Date Comments Med Refill 08/03/2024 Encounter Details Date Type Department Care Team (Late st Contact Info) Description 08/03/2024 Refill [facility] MEDICINE [address] [place] [address] Brandon Caballero MD [address] [place] [address] Type 2 diabetes mellitus without complication, without long-term current use of insulin ([facility]) Social History Tobacco Use Types Packs/Day Years [...] Description 08/22/2025 11:15 AM EDT Office Visit [facility] MEDICINE [address] [place] [address] Brittany Saldana MD [address] [place] [address] 09/13/2025 1:00 PM EDT Office Visit [facility] OPTOMETRY [address] [place] [address] Renetta Mitchell OD [address] [place] [address] 10/30/2025 1:00 PM EST Clinical Support [facility] MEDICINE [address] [place] [address] Janae Walden, CORTES documented as of this encounter Goals Goal Patient Goal Type Associated Problems Recent Progress Patient-Stated? Author Blood Pressure < 140/90 Blood Pressure 156/62(2024 1:41 PM EDT) Venkatesh Mccann, PharmD Hemoglobin A1c < 7 Result Component 5(04/06/2025 9:03 AM EDT) No Venkatesh Skinner PharmD documented as of this encounter Visit Diagnoses Diagnosis Type 2 diabetes mellitus without complication, without long-term current use of insulin (HCC) documented in this encounter Additional Health Concerns Assessment Noted Time PHQ-9 Depression Total Score: 4 03/06/20 24 2:22 PM EDT documented as of this encounter Care Teams Voltage Tester Relationship Specialty Start Date End Date Brittany Saldana MD [address] [place] [address] PCP - General Family Medicine 05/08/20 Darrin Hernandez FNP [address] [place] [address] Nurse Practitioner Family Medicine 10/19/23 documented as of this encounter
--- OUTSIDE RECORDS SUMMARY | 2025-08-16 07:33 | XMS_ITS | Clinical Summary ---
Author Organization [facility] Address [address] [place] [address] Care Team Providers Care Posting Machine Operator Name Role Phone Selvin Payan MD Primary Care Provider [phone] Allergies Active Allergy Reactions Criticality Noted Date [...] age to complete this topic Care Teams Posting Machine Operator Relationship Specialty Start Date End Date Selvin Payan MD [address] [place] [address] PCP - General Internal Medicine 03/08/18
--- OUTSIDE RECORDS SUMMARY | 2025-08-16 07:33 | XMS_ITS | Encounter Summary ---
Author Organization [employer] Address [address] [facility] 7 [place] [address] Care Team Providers Care Public Address System Operator Name Role Phone Brittany Saldana MD Primary Care Provider + Darrin Hernandez Unavailable Unavailable Encounter Details Date Type Department Care Team (Late st Contact Info) Description 10/10/[address] [facility] MEDICINE [address] [place] [address] Brittany Saldana MD [address] [place] [address] Social History Tobacco Use Types Packs/Day Years [...] 11:15 AM EDT Office Visit [facility] MEDICINE [address] [place] [address] Brittany Saldana MD [address] [place] [address] 09/13/2025 1:00 PM EDT Office Visit [facility] OPTOMETRY [address] [place] [address] Renetta Mitchell, GLEN [address] [place] [address] 10/30/2025 1:00 PM EST Clinical Support [facility] MEDICINE [address] [place] [address] Janae Walden, CORTES documented as of this encounter Goals Goal Patient Goal Type Associated Problems Recent Progress Patient-Stated? Author Blood Pressure < 140/90 Blood Pressure 156/62(2024 1:41 PM EDT) No Venkatesh Skinner, [place] Hemoglobin A1c < 7 Result Component 5(04/06/2025 9:03 AM EDT) No Skinner, Venkatesh, PharmD documented as of this encounter Visit Diagnoses Not on filedocumented in this encounter Additional Health Concerns Assessment Noted Time PHQ-9 Depression Total Score: 4 03/06/20 24 2:22 PM EDT documented as of this encounter Care Teams Public Address System Operator Relationship Specialty Start Date End Date Brittany Saldana MD [address] [place] [address] PCP - General Family Medicine 05/08/20 Darrin Hernandez FNP [address] [place] [address] Nurse Practitioner Family Medicine 10/19/23 documented as of this encounter
--- OUTSIDE RECORDS SUMMARY | 2025-08-16 07:33 | XMS_ITS | Encounter Summary ---
Author Organization [employer] Address [address] [place] [address] [place] [address] Care Team Providers Care Vortex Operator Name Role Phone Brittany Saldana MD Primary Care Provider + Darrin Hernandez Unavailable Unavailable Reason for Visit * Reason Comments Med Refill Encounter Details Date Type Department Care Team (Late st Contact Info) Description 04/21/[address] [facility] MEDICINE [address] [place] [address] Brittany Saldana MD [address] [place] [address] Mild intermittent asthma without complication Social History [...] EDT Office Visit [facility] MEDICINE [address] [place] [address] Brittany Saldana MD [address] [place] [address] 09/13/2025 1:00 PM EDT Office Visit [facility] OPTOMETRY [address] [place] [address] Renetta Mitchell OD [address] [place] [address] 10/30/2025 1:00 PM EST Clinical Support [facility] MEDICINE [address] [place] [address] Janae Walden, CORTES documented as of this [...] documented as of this encounter Care Teams Vortex Operator Relationship Specialty Start Date End Date Brittany Saldana MD [address] [place] [address] PCP - General Family Medicine 05/08/20 Darrin Hernandez FNP [address] [place] [address] Nurse Practitioner Family Medicine 10/19/23 documented as of this encounter
--- OUTSIDE RECORDS SUMMARY | 2025-08-16 07:33 | XMS_ITS | Encounter Summary ---
Author Organization [employer] Address [address] [place] [address] [place] [address] Care Team Providers Care Clinical Education Consultant Name Role Phone Brittany Saldana MD Primary Care Provider + Darrin Hernandez Unavailable Unavailable Reason for Visit * Reason Comments Med Refill Encounter Details Date Type Department Care Team (Late st Contact Info) Description 07/25/2024 Refill [facility] MEDICINE [address] [place] [address] Brandon Caballero MD [address] [place] [address] Type 2 diabetes mellitus without complication, without long-term current use of insulin ([facility]) Social History Tobacco Use Types [...] 11:15 AM EDT Office Visit [facility] MEDICINE [address] [place] [address] Brittany Saldana MD [address] [place] [address] 09/13/2025 1:00 PM EDT Office Visit [facility] OPTOMETRY [address] [place] [address] Renetta Mitchell OD [address] [place] [address] 10/30/2025 1:00 PM EST Clinical Support [facility] MEDICINE [address] [place] [address] Janae Walden, CORTES documented as of this [...] as of this encounter Care Teams Clinical Education Consultant Relationship Specialty Start Date End Date Brittany Saldana MD [address] [place] [address] PCP - General Family Medicine 05/08/20 Darrin Hernandez FNP [address] [place] [address] Nurse Practitioner Family Medicine 10/19/23 documented as of this encounter
--- OUTSIDE RECORDS SUMMARY | 2025-08-16 07:33 | XMS_ITS | Encounter Summary ---
Author Organization [employer] Address [address] [place] [address] Care Team Providers Care Rail Signal Designer Name Role Phone Brittany Saldana MD Primary Care Provider + Darrin Hernandez Unavailable Unavailable Reason for Visit * Reason Onset Date Comments Med Refill 07/23/2024 Encounter Details Date Type Department Care Team (Late st Contact Info) Description 07/23/2024 Refill [facility] MEDICINE [address] [place] [address] Plain[place]us FNP [address] [place] [address] Depression, unspecified depression type Social History Tobacco [...] the past 12 months, has t he [employer], gas, oil or water company threatened to [...] Description 08/22/2025 11:15 AM EDT Office Visit [facility] MEDICINE [address] [place] [address] Brittany Saldana MD [address] [place] [address] 09/13/2025 1:00 PM EDT Office Visit [facility] OPTOMETRY [address] [place] [address] Renetta Mitchell, GLEN [address] [place] [address] 10/30/2025 1:00 PM EST Clinical Support [facility] MEDICINE [address] [place] [address] Janae Walden, CORTES documented as of this [...] as of this encounter Care Teams Rail Signal Designer Relationship Specialty Start Date End Date Brittany Saldana MD [address] [place] [address] PCP - General Family Medicine 05/08/20 Darrin Hernandez FNP [address] [place] [address] Nurse Practitioner Family Medicine 10/19/23 documented as of this encounter
--- OUTSIDE RECORDS SUMMARY | 2025-08-16 07:34 | XMS_ITS | Encounter Summary ---
Author Organization [employer] Address [address] [place] [address] Care Team Providers Care Paper Cutter Operator Name Role Phone Brittany Saldana MD Primary Care Provider + Darrin Hernandez Unavailable Unavailable Reason for Visit * Reason Onset Date Comments Durable Medical Equipment 02/17/2023 Encounter Details Date Type Department Care Team (Late st Contact Info) Description 02/17/2023 Telephone [facility] MEDICINE [address] [place] [address] Brittany Saldana MD [address] [place] [address] Durable Medical Equipment Social History Tobacco Use [...] . Pt [facility] to [facility] . Any questions please contact pt at [phone]. documented in this encounter Plan of Treatment Upcoming Encounters Date Type Department Care Team (Late st Contact Info) Description 08/22/2025 11:15 AM EDT Office Visit [facility] MEDICINE [address] [place] [address] Brittany Saldana MD [address] [place] [address] 09/13/2025 1:00 PM EDT Office Visit [facility] OPTOMETRY [address] [place] [address] Renetta Mitchell, GLEN [address] [place] [address] 10/30/2025 1:00 PM EST Clinical Support [facility] MEDICINE [address] [place] [address] Janae Walden, RN documented as of this encounter Visit Diagnoses Not on filedocumented in this encounter Additional Health Concerns Assessment Noted Time PHQ-9 Depression Total Score: 10 02/11/ 023 10:47 AM EDT documented as of this encounter Care Teams Paper Cutter Operator Relationship Specialty Start Date End Date Brittany Saldana MD [address] [place] [address] PCP - General Family Medicine 05/08/20 Darrin Hernandez FNP [address] [place] [address] Nurse Practitioner Family Medicine 10/19/23 documented as of this encounter
--- OUTSIDE RECORDS SUMMARY | 2025-08-16 07:34 | XMS_ITS | Encounter Summary ---
Author Organization [employer] Address [address] [place] [address] Care Team Providers Care English Faculty Member Name Role Phone Brittany Saldana MD Primary Care Provider + Darrin Hernandez Unavailable Unavailable Reason for Visit * Reason Comments Med Refill Encounter Details Date Type Department Care Team (Late st Contact Info) Description 03/15/2023 Refill [facility] MEDICINE [address] [place] [address] Brittany Saldana MD [address] [place] [address] Primary hypertension Social History Tobacco Use Types [...] 11:15 AM EDT Office Visit [facility] MEDICINE [address] [place] [address] Brittany Saldana MD [address] [place] 09/13/2025 1:00 PM EDT Office Visit [facility] OPTOMETRY [address] [place] [address] Renetta Mitchell, OD [address] [place] [address] 10/30/2025 1:00 PM EST Clinical Support [facility] MEDICINE [address] [place], [place] [phone] Janae Walden, RN documented as of this encounter Visit Diagnoses Diagnosis Primary hypertension Unspecified essential hypertension documented in this encounter Additional Health Concerns Assessment Noted Time PHQ-9 Depression Total Score: 10 023 10:47 AM EDT documented as of this encounter Care Teams English Faculty Member Relationship Specialty Start Date End Date Brittany Saldana MD [address] [place] [place] [address] PCP - General Family Medicine 05/08/20 Darrin Hernandez FNP [address] [place] [place] [address] Nurse Practitioner Family Medicine 10/19/23 documented as of this encounter
--- OUTSIDE RECORDS SUMMARY | 2025-08-16 07:34 | XMS_ITS | Encounter Summary ---
Author Organization [employer] Address [address] [place] [address] Care Team Providers Care Supervisor Weaving Name Role Phone Brittany Saldana MD Primary Care Provider + Darrin Hernandez Unavailable Unavailable Reason for Visit * Reason Onset Date Comments Referral 09/24/2023 Encounter Details Date Type Department Care Team (Late st Contact Info) Description 09/24/2023 Telephone [facility] MEDICINE [address] [place] [address] Brittany Saldana MD [address] [place] [address] Referral Social History Tobacco Use Types Packs/Day [...] the past 12 months, has t he [employer], gas, oil or water company threatened to [...] 9:02 AM EST Tc from sri with [facility] requesting a new order for Occupational therapy for weakness in hands. States they received the referral for Occupational therapy but dx says hip pain. Please fax to [phone] Any questions, please contact sri at [phone] documented in this encounter Plan of Treatment Upcoming Encounters Date Type Department Care Team (Late st Contact Info) Description 08/22/2025 11:15 AM EDT Office Visit [facility] MEDICINE [address] [place] [address] Brittany Saldana MD [address] [place] [address] 09/13/2025 1:00 PM EDT Office Visit [facility] OPTOMETRY [address] [place] [address] Renetta Mitchell OD [address] [place] [address] 10/30/2025 1:00 PM EST Clinical Support [facility] MEDICINE [address] [place] [address] Janae Walden, RN documented as of this encounter Visit Diagnoses Not on filedocumented in this encounter Additional Health Concerns Assessment Noted Time PHQ-9 Depression Total Score: 4 09/06/20 23 11:30 AM EDT documented as of this encounter Care Teams Supervisor Weaving Relationship Specialty Start Date End Date Brittany Saldana MD [address] [place] [address] PCP - General Family Medicine 05/08/20 Darrin Hernandez FNP [address] [place] [address] Nurse Practitioner Family Medicine 10/19/23 documented as of this encounter
--- OUTSIDE RECORDS SUMMARY | 2025-08-16 07:34 | XMS_ITS | Clinical Summary ---
Author Organization [facility] Address [address] [place] [address] Phone Care Team Providers Care Maintenance Operator Name Role Phone Brittany Saldana MD Primary Care Provider + [phone] Allergies Active Allergy Reactions Criticality Noted Date Comments Penicillins 03/08/2018 Medications albuterol HFA (PROAIR HFA ; PROVENTIL HFA ; VENTOLIN HFA) 90 mcg/actuation inhaler 5 Active ARIPiprazole (ABILIFY) 2 mg tablet 5 Active atorvastatin (LIPITOR) 20 mg tablet 5 Active OneTouch Ultra Test test strip 4 Active buPROPion XL (WELLBUTRIN XL) 300 mg 24 hr tablet 5 Active calcium carbonate-vitam in D 600 mg-10 mcg (400 unit) per tablet 4 Active cloNIDine (CATAPRES) 0.1 mg tablet 5 Active cyanocobalamin (VITAMIN B-12) 1,000 mcg tablet 4 Active docusate sodium (COLACE) 100 mg capsule Take 1 capsule (100 mg total) by mouth 2 (two) times a day if needed. 5 Active felodipine (PLENDIL) 5 mg 24 hr tablet 1 tablet (5 mg total). 8 Active finasteride (PROSCAR) 5 mg tablet 5 Active fluticasone propionate (FLONASE) 50 mcg/actuation nasal spray 5 Active gabapentin (NEURONTIN) 300 mg capsule 5 Active ketorolac (ACULAR) 0.5 % ophthalmic solution INSTILL 1 DROP AFFECTED EYE(S) THREE TIMES DAILY STARTING 2 DAYS BEFORE SURGERY 5 Active lisinopriL (PRINIVIL,ZESTR IL) 20 mg tablet 5 Active melatonin 5 mg tablet 4 Active methylphenidate 36 mg ER tablet TAKE 1 TABLET BY MOUTH EVERY DAY IN THE MORNING, DO NOT BREAK, CRUSH, DISSOLVE OR CHEW 5 Active metoprolol succinate (TOPROL-XL) 25 mg 24 hr tablet 5 Active CertaVite Senior tablet 4 Active Certavite-Antio xidant 18-400 mg-mcg tablet tablet Take 1 tablet by mouth 1 (one) time each day in the morning. 4 Active spironolactone (ALDACTONE) 25 mg tablet 5 Active tadalafiL (CIALIS) 20 mg tablet TAKE ONE TABLET BY MOUTH EVERY DAY FOR SEXUAL ACTIVITY- OR WHEN NEEDED 60 MINUTES BEFORE Active terazosin (HYTRIN) 5 mg capsule 4 Active thiamine 100 mg tablet 4 Active traZODone (DESYREL) 100 mg tablet 5 Active hydrALAZINE (APRESOLINE) 25 mg tablet Take 1 tablet (25 mg total) by mouth 3 times daily. Active meclizine (ANTIVERT) 25 mg tablet Take 1 tablet (25 mg total) by mouth 3 (three) times a day if needed. 4 Active olopatadine (PATANOL) 0.1 % ophthalmic solution Administer 1 drop into both eyes 2 times daily. 5 Active ferrous sulfate 325 mg (65 mg iron) EC tablet Take 1 tablet (325 mg total) by mouth 1 (one) time each day with breakfast. 5 Active Active Problems Problem Noted Date Diagnosed Date Bilateral tinnitus 06/06/2025 Abnormal thyroid blood test 04/24/2025 Cough with hemoptysis 03/26/2025 Overweight 03/26/2025 Sudden right hearing loss 02/28/2025 Lumbar radiculopathy, chronic 12/07/2024 Polyneuropathy associated wi th underlying disease (CMS/HCC V24) 12/07/2024 Recurrent major depressive d isorder, in partial remission ([facility] V24) 12/07/2024 Neurofibroma of upper extremity 09/22/2024 Vertigo 07/26/2024 Fall (on) (from) other stairs and steps, initial encounter 06/29/2024 Bradycardia 03/21/2024 Arthritis of both hands 11/18/2023 Chronic fatigue 06/03/2023 Erectile dysfunction 06/03/2023 Iliopsoas bursitis of left hip 06/03/2023 Type 2 diabetes mellitus wit hout complication, without long-term current use of insulin ([facility] V24, [facility] V28) 02/08/2023 Varicose veins of bilateral lower extremities with other complications 02/08/2023 Depression 11/05/2022 Alcohol abuse 10/22/2022 Attention deficit hyperactiv ity disorder, predominantly inattentive type 10/22/2022 Cervical lymphadenopathy 10/22/2022 Essential (primary) hypertension 10/22/2022 Mild intermittent asthma 10/22/2022 Obstructive sleep apnea syndrome 10/22/2022 Polyp of colon 10/22/2022 Slow transit constipation 10/22/2022 Vascular insufficiency 10/22/2022 Benign neoplasm of major salivary gland 01/24/20 Overview (08/07/2025): Benign neoplasm of major salivary gland, unspecified; Note: Date Diagnosed: 01/24/2020 9:34 AM (D11.9) Sensorineural hearing loss (SNHL) of both ears 1 Overview (08/07/2025): Sensorineural hearing loss, bilateral; Note: Date Diagnosed: 09/08/2019 10:13 AM (H90.3) Bilateral impacted cerumen 08/25/2019 Overview (08/07/2025): Impacted cerumen, bilateral; Note: Date Diagnosed: 08/25/2019 3:23 PM (H61.23) Mass of neck 08/25/2019 Overview (08/07/2025): Localized swelling, mass and lump, neck; Note: Date Diagnosed: 08/25/2019 3:24 PM (R22.1) Neurofibromatosis (CMS/HCC V24, CMS/HCC V28) 09/2019 Overview (08/07/2025): Neurofibromatosis, unspecified; Note: Date Diagnosed: 08/25/2019 3:24 PM (Q85.00) 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 Encounters Date Type Department Care Team Description 08/07/2025 10:30 AM EDT Office Visit Pulmonology - [place] [address] [address] Sena Mobley MD Nocturnal hypoglycemia (Primary Dx) 07/31/2025 3:58 PM EDT - 07/31/2025 11:59 PM EDT Hospital Encounter [facility] CT Scan [address] [place] [id number] Pulmonary nodule Discharge Disposition: Home or Self Care 07/03/2025 10:30 AM EDT Office Visit Pulmonology [facility] [address] [phone] Sena Mobley MD Pulmonary nodule (Primary Dx); Neurofibromatosis ([facility] V24, CMS/HCC V28) from Last 3 Months Social History Tobacco Use Types Packs/Day Years Used Date Smoking Tobacco: Former Cigarettes Smokeless Tobacco: Never Sex and Gender Information Value Date Recorded Sex Assigned at Male 07/05/2025 2:56 PM EDT Legal Sex Male 5:12 AM EST Gender Identity Male 07/05/2025 2:56 PM EDT Sexual Orientation Straight 07/05/2025 2: 56 PM EDT Obstetrics History Last Filed Vital Signs Vital Sign Reading Time Taken Comments Blood Pressure 144/46 08/07/2025 10:31 AM EDT Pulse 68 08/07/2025 10:31 AM EDT Temperature 36.1 C (97 F) 08/07/2025 10:31 AM EDT Respiratory Rate 20 08/07/2025 10:31 AM EDT Oxygen Saturation 99% 08/07/2025 10:31 AM EDT Inhaled Oxygen Concentration - - Weight 69.9 kg (154 lb) 08/07/2025 10:31 AM EDT Height 160 cm (5' 3 ) 08/07/2025 10:31 AM EDT Body Mass Index 27.28 08/07/2025 10:31 AM EDT Plan of Treatment Health Maintenance Due Date Last Done Comments Colorectal Cancer Screening: Colonoscopy 1957 Diabetes: Annual Foot Exam 1967 Diabetes: Annual Retina Eye Exam 1967 Depression Screening 11/15/2024 Abdominal Aortic Aneurysm (AAA) Screen 04/02/2025 Falls Risk Assessment 04/02/2025 Hepatitis C Screening 04/02/2025 Social Influencers of Health Screening 04/02/2025 Diabetes: Annual Urine Albumin-Creatinine Ratio (uACR) 07/03/2025 COVID-19 Vaccine ( season) 2025 09/09/2024, 08/17/2023, [...] Comments CT CHEST WO CONTRAST Routine 07/31/2025 4:17 PM EDT Pulmonary nodule from Last 3 Months Results * CT Chest wo Contrast (07/31/2025 4:17 PM EDT) Anatomical Region Laterality Modality Body Computed Tomogra phy 08/03/2025 11:5 8 AM EDT Impressions 08/03/2025 12:05 PM EDT No pneumonia or suspicious pulmonary nodule. -------- FINAL REPORT -------- Dictated By: Armida Lynn Dictated Date: 08/03/2025 11:58 ET Assigned Physician: Armida Lynn Reviewed and Electronically Signed By: Armida Lynn Signed Date: 08/03/2025 12:05 ET Workstation ID: [id number] Transcribed By: Self Edit Transcribed Date: 08/03/2025 11:58 ET Narrative 08/03/2025 12:05 PM EDT PROCEDURE: CT CHEST WITHOUT CONTRAST INDICATION: Pneumonia, effusion or abscess suspected, xray done TECHNIQUE: Chest CT without contrast. Multi planar reformats were created and interpreted. The examination was performed utilizing dose reduction techniques.Total DLP 242 mGy/cm COMPARISON: No comparison exam available at time of interpretation. FINDINGS: LUNGS/PLEURA: Central airways are patent. Faint groundglass opacity in the right middle lobe presumably inflammatory. No pleural effusion or pneumothorax. Few 1 to 2 mm nodules which do not need to be followed in my suspicion is high risk. MEDIASTINUM: Thyroid gland is unremarkable. No mediastinal or hilar lymphadenopathy. Cardiac chambers are normal in size. No pericardial effusion. Esophagus is normal CHEST WALL: No axillary lymphadenopathy or superficial hematoma. UPPER ABDOMEN:Gastric sleeve. Prominent stool in the colon. BONES: No acute fracture. Scattered degenerative changes seen throughout the bones. Procedure Note Armida Lynn MD - 08/03/2025 PROCEDURE: CT CHEST WITHOUT CONTRAST INDICATION: Pneumonia, effusion or abscess suspected, xray done TECHNIQUE: Chest CT without contrast. Multi planar reformats were createdand interpreted. The examination was performed utilizing dose reductiontechniques.Total DLP 242 mGy/cm COMPARISON: No comparison exam available at time of interpretation. FINDINGS: LUNGS/PLEURA: Central airways are patent. Faint groundglass opacity inthe right middle lobe presumably inflammatory. No pleural effusion orpneumothorax. Few 1 to 2 mm nodules which do not need to be followed inmy suspicion is high risk. MEDIASTINUM: Thyroid gland is unremarkable. No mediastinal or hilarlymphadenopathy. Cardiac chambers are normal in size. No pericardialeffusion. Esophagus is normal CHEST WALL: No axillary lymphadenopathy or superficial hematoma. UPPER ABDOMEN:Gastric sleeve. Prominent stool in the colon. BONES: No acute fracture. Scattered degenerative changes seen throughoutthe bones. IMPRESSION: No pneumonia or suspicious pulmonary nodule. -------- FINAL REPORT -------- Dictated By: Armida Lynn Dictated Date: 08/03/2025 11:58 ET Assigned Physician: Armida Lynn Reviewed and Electronically Signed By: Armida Lynn Signed Date: 08/03/2025 12:05 ET Workstation ID: [id number] Transcribed By: Self Edit Transcribed Date: 08/03/2025 11:58 ET Sena Mobley MD IMG CT PROCEDURES Final Resu lt from Last 3 Months Insurance [facility] Member Subscriber Plan / Payer (Ef fective 2023-Present) Name:Dane Calles Relation to Subscriber:Self Name:Dane Calles Payer ID:[id number] Group ID:[id number] Type:Not on file Address: [address] [place] [address] Care Teams Maintenance Operator Relationship Specialty Start Date End Date Brittany Saldana MD [address] [place] [phone] PCP - General Internal Medicine 07/05/25
--- OUTSIDE RECORDS SUMMARY | 2025-08-16 07:34 | XMS_ITS | Encounter Summary ---
Author Organization [employer] Address [address] [place] [address] [place] [address] Care Team Providers Care Press Tender Long Goods Name Role Phone Brittany Saldana MD Primary Care Provider + Darrin Hernandez Unavailable Unavailable Reason for Visit * Reason Onset Date Comments Med Refill 02/08/2024 Encounter Details Date Type Department Care Team (Late st Contact Info) Description 02/08/2024 Refill [facility] [address] [place] [address] Brittany Saldana MD [address] [place] [address] Social History Tobacco Use Types Packs/Day Years [...] EDT Office Visit [facility] [address] [place] [phone] Brittany Saldana MD [address] [place] [address] 09/13/2025 1:00 PM EDT Office Visit [facility] [address] [place] [phone] Renetta Mitchell OD [address] [place] [address] 10/30/2025 1:00 PM EST Clinical Support [facility] [address] [place] [phone] Janae Walden, CORTES documented as of this encounter Visit Diagnoses Not on filedocumented in this encounter Additional Health Concerns Assessment Noted Time PHQ-9 Depression Total Score: 1 12/27/19 24 1:53 PM EST documented as of this encounter Care Teams Press Tender Long Goods Relationship Specialty Start Date End Date Brittany Saldana MD [address] [place] [address] PCP - General Family Medicine 05/08/20 Darrin Hernandez FNP [address] [place] [address] Nurse Practitioner Family Medicine 10/19/23 documented as of this encounter
--- OUTSIDE RECORDS SUMMARY | 2025-08-16 07:34 | XMS_ITS | Encounter Summary ---
Author Organization [employer] Address [address] [place] [phone] Care Team Providers Care Conference Center Manager Name Role Phone Brittany Saldana MD Primary Care Provider + Darrin Hernandez Unavailable Unavailable Reason for Visit * Reason Onset Date Comments Med Refill 01/09/2025 Encounter Details Date Type Department Care Team (Late st Contact Info) Description 01/09/2025 Refill [facility] [address] [place] [address] Brittany Saldana MD [address] [place] [address] Social History Tobacco Use Types Packs/Day Years [...] Description 08/22/2025 11:15 AM EDT Office Visit [facility] [address] [place] [phone] Brittany Saldana MD [address] [place] [address] 09/13/2025 1:00 PM EDT Office Visit [facility] [address] [place] [phone] Renetta Mitchell OD [address] [place] [address] 10/30/2025 1:00 PM EST Clinical Support [facility] [address] [place] [address] Janae Walden, CORTES documented as of this [...] documented as of this encounter Care Teams Conference Center Manager Relationship Specialty Start Date End Date Brittany Saldana MD [address] [place] [address] PCP - General Family Medicine 05/08/20 Darrin Hernandez FNP [address] [place] [address] Nurse Practitioner Family Medicine 10/19/23 documented as of this encounter
--- OUTSIDE RECORDS SUMMARY | 2025-08-16 07:34 | XMS_ITS | Clinical Summary ---
Author Organization [employer] Address [address] [place] [address] 7 [place] [address] Care Team Providers Care Branch Manager Name Role Phone Brittany Saldana MD [...] complication, without long-term current use of insulin ([facility]) Use 1 lancet to monitor blood [...] complication, without long-term current use of insulin ([facility]) TEST BLOOD SUGAR TWICE DAILY 100 [...] EVERY MORNING 30 tablet 03/20/20 25 Active cloNIDine (Catapres) 0.1 MG tabletIndicatio [...] TABLET BY MOUTH AT BEDTIME 30 tablet 06/19/20 25 Active lisinopril 10 MG tabletIndicatio ns:Essential (primary) hypertension Take 1.5 tablets (15 mg) by mouth Once per day. 45 tablet 06/19/202025 Active Additional Information Patient taking differently: 30 mgOral Daily,Increased by cardiology on 08/14/25 to 30mg, Reported on 08/15/2025 polyethylene glycol, PEG, 3350 (MiraLax) 17 GM/SCOOP powder Take 17 g by mouth if needed each day (constipation >1d). 527 g 07/05/202025 Active ferrous sulfate 325 (65 Fe) MG EC tablet TAKE ONE TABLET BY MOUTH ONCE DAILY WITH BREAKFAST, DO NOT CRUSH OR CHEW. 30 tablet 2 07/19/20 25 Active gabapentin (Neurontin) 400 MG capsuleIndicati ons:Type 2 diabetes mellitus without complication, without long-term current use of insulin (HCC) TAKE ONE CAPSULE BY MOUTH THREE TIMES DAILY 90 capsule 2 07/19/20 25 Active methylphenidate ER (Concerta) 36 MG CR tablet TAKE 1 TABLET BY MOUTH EVERY DAY IN THE MORNING, DO NOT BREAK, CRUSH, DISSOLVE OR CHEW 30 tablet 07/20/20 Active spironolactone (Aldactone) 25 MG tablet Take 25 mg by mouth Once per day. Rx'd by cardiology Active hydrALAZINE (Apresoline) 25 MG tablet Take 25 mg by mouth in the morning and 25 mg at noon and 25 mg in the evening. Rx'd by dinkey mechanic . Active felodipine ER (Plendil) 10 MG 24 hr tablet Take 10 mg by mouth Once per day. Do not crush, chew, or split. Rx'd by cardiology Active lisinopril 30 MG tablet Take 30 mg by mouth Once per day. Cardiology increased on 08/14/25 Active ferrous sulfate (Fe Tabs) 325 (65 Fe) MG EC tablet Take 1 tablet (325 mg) by mouth with breakfast. Do not crush, chew, or split. 30 tablet 3 03/23/20 25 2024 Discontinued gabapentin (Neurontin) 400 MG capsuleIndicati ons:Type 2 diabetes mellitus without complication, without long-term current use of insulin (HCC) Take 1 capsule (400 mg) by mouth 3 times daily. 90 capsule 3 03/23/20 25 2024 Discontinued methylphenidate ER (Concerta) 36 MG CR tablet TAKE 1 TABLET BY MOUTH EVERY DAY IN THE MORNING DO NOT BREAK, CRUSH, DISSOLVE OR CHEW 30 tablet 06/19/202024 Discontinued Active Problems Problem Noted Date Diagnosed Date [...] AM EDT): - obtain holter monitor from [facility] ordered by weight management program - will [...] fu with . Order TSH/testosterone levels, psychiatric social worker input appreciated. Iliopsoas bursitis of left hip [...] he he was not contacted yet, per corrosion control specialist, Kalyan hoang contact him on 05/11/23 at 9:47 am, but he didn't responded, vm was left. I provide him with Re-APP information for him to follow up, he agreed. Provided education around integrated medicine and the options of follow up BE's as needed. Provided contact information should questions or concerns arise. Plan: Narendra will engage in effective coping mechanisms provided at least 1 per day for 6 months. He will be Contacting [employer] for him to engage in Ind. Therapy [...] engagement. PLAN: 1. Follow up with [facility]: Recommended for follow-up: during AUD appts. 2. [...] from Ind. Therapy At this time Dane Kunz Marli meets criteria for Visit Diagnoses: Problem List Items Addressed This Visit Other Depression Patient ready to address current needs Yes Strengths include Narendra is in action stage of change and his motivation will serve as treatment engagement. PLAN: 1. Follow up with [facility]: Recommended for follow-up: during AUD appts. 2. 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 Continue Lisinopril 7.5 [...] ON 03/21/2024 11:54 AM BY VICTOR M Culver. Compliant w/meds Continue Felodipine same dose, and [...] exercise, life style modifications, diet, referral to land conservation specialist. Discussed re lower calorie intake, increase dietary fiber Pt insisted on wt reduction program, C program given today Encounters * This document contains information received from the source organization and may not represent a complete record from that organization. Date Type Department Care Team Description 08/15/2025 10:00 AM EDT Office Visit [facility] [address] [place] [address] Migue Stephens MD Alcohol use disorder (Primary Dx) 08/15/2025 Travel 08/14/2025 Patient Outreach [facility] [address] [place] [address] Ted Olvera [facility] 08/08/2025 10:00 AM EDT Office Visit [address] [address] Migue Stephens MD Alcohol use disorder (Primary Dx); Essential (primary) hypertension 08/08/2025 Travel 08/07/2025 1:15 PM EDT Office Visit [facility] [address] [place] [address] Brandon Caballero MD Alcohol use disorder, severe, in sustained remission (CMS/HCC) (Primary Dx) 08/07/2025 Patient Outreach [facility] [address] [place] [address] Corbin Aguilar Recovery [facility] 08/07/2025 Travel 08/07/2025 Orders Only [employer] [address] [place] [address] David Potter MD 08/01/2025 10:00 AM EDT Office Visit [address] [address] Migue Stephens MD Alcohol use disorder (Primary Dx) 08/01/2025 Travel 07/24/2025 Patient Outreach [address] [address] Ted Olvera [facility] 07/23/2025 11:30 AM EDT Clinical Support [address] [address] Pippa Aldrich, CORTES Essential (primary) hypertension 07/23/2025 Travel 07/20/2025 Refill [facility] [address] [place] [address] Brittany Saldana MD 07/18/[address] [phone] Brittany Saldana MD Type 2 diabetes mellitus without complication, without long-term current use of insulin (CMS/HCC) 07/16/2025 Travel 07/11/2025 10:00 AM EDT Clinical Support [address] [address] Janae Walden RN Alcohol use disorder, severe, in sustained remission (CMS/HCC) 07/11/2025 Travel 07/10/2025 Patient Outreach [address] [phone] Corbin Aguilar [facility] 07/10/2025 Patient Outreach [address] [phone] Corbin Aguilar [facility] 07/09/[address] [address] Brittany Saldana MD Care Coordination 06/29/[address] [phone] Brittany Saldana MD 06/27/2025 10:00 AM EDT Office Visit [address] [phone] Migue Stephens MD Alcohol use disorder, severe, in sustained remission (CMS/HCC) (Primary Dx) 06/27/2025 Travel 06/26/2025 Patient Outreach [facility] [place] [address] Ted Olvera [facility] 06/20/2025 10:00 AM EDT Office Visit [facility] [place] [address] Migue Stephens MD Alcohol use disorder, severe, in sustained remission (CMS/HCC) (Primary Dx) 06/20/2025 Travel 06/19/2025 11:45 AM EDT Office Visit [facility] [address] [facility] [place] [address] Brittany Saldana MD Essential (primary) hypertension (Primary Dx); Attention deficit hyperactivity disorder, predominantly inattentive type 06/19/2025 Travel 06/18/2025 Refill [facility] [address] [place] [address] [facility] 06/18/2025 Refill [facility] [address] [facility] [place] [address] Brittany Saldana MD Chronic rhinitis; Acute insomnia 06/13/2025 10:00 AM EDT Office Visit [facility] [place] [address] Migue Stephens MD Alcohol use disorder, severe, in sustained remission (CMS/HCC) (Primary Dx) 06/13/2025 Travel 06/12/2025 Patient Outreach [facility] [place] [address] Brittany Saldana MD Pre-visit Planning (SDOH screening completed on 01/22/2025) 06/12/2025 Travel 06/05/2025 Orders Only [facility] External Provider, [facility] 06/05/2025 Patient Outreach [facility] [place] [address] Ted Olvera [facility] 05/30/2025 10:00 AM EDT Office Visit [address] [address] Migue Stephens MD Alcohol use disorder, severe, in sustained remission (CMS/HCC) (Primary Dx) 05/30/2025 Travel 05/29/2025 Patient Outreach [facility] [address] [place] [address] Ted Olvera [facility] 05/23/2025 10:00 AM EDT Office Visit [address] [address] Migue Stephens MD Alcohol use disorder, severe, in sustained remission (CMS/HCC) (Primary Dx) 05/23/2025 Travel 05/22/2025 Patient Outreach [facility] [address] [place] [address] Rolando Amos [facility] 05/21/2025 Refill [facility] [address] [place] [address] Brittany Saldana MD 05/16/2025 10:00 AM EDT Office Visit [address] [address] Migue Stephens MD Alcohol use disorder, severe, in sustained remission (CMS/HCC) (Primary Dx) 05/16/2025 Travel from Last 3 Months Immunizations Immunization [...] Sign Reading Time Taken Comments Blood Pressure 156/62 08/07/2025 1:41 PM EDT Pulse 60 08/07/2025 1:41 PM EDT Temperature 36.2 C (97.2 F) 08/07/2025 1:41 PM EDT Respiratory Rate 20 07/23/2025 1:15 PM EDT Oxygen Saturation 97% 07/23/2025 1:15 PM EDT Inhaled Oxygen Concentration - - Weight 68.6 kg (151 lb 3.2 oz) 06/19/2025 11:48 AM EDT Height 160 cm (5' 3 ) 06/19/2025 11:48 AM EDT Body Mass Index 26.78 06/19/2025 11:48 AM EDT Plan of Treatment Upcoming Encounters Date Type Department Care Team (Late st Contact Info) Description 08/22/2025 11:15 AM EDT Office Visit [facility] [address] [place] [address] Brittany Saldana MD [address] [place] [address] 09/13/2025 1:00 PM EDT Office Visit [facility] [address] [place] [address] Renetta Mitchell, GLEN [address] [place] [address] 10/30/2025 1:00 PM EST Clinical Support [facility] [address] [place] [address] Janae Walden, RN Health Maintenance Due Date Last Done Comments [...] WO CONTRAST Routine 07/31/2025 9:22 AM EDT STRESS TEST WITH MYOCARDIAL PERFUSION Routine 06/05/2025 8:15 AM EDT ALBUMIN, RANDOM URINE W/CREATININE Routine 04/10/2025 10:21 AM EDT HEMOGLOBIN A1C Routine 04/06/2025 9:03 AM EDT LIPID PANEL, STANDARD Routine 04/06/2025 9:03 AM EDT HM COLONOSCOPY Routine 09/19/2024 ZZZ HISTORICAL HEPATITIS C AB W/REFL TO HCV RNA, QN, PCR Routine 12/09/2021 11:13 AM EST from Last 3 Months or Most Recently Relevant to Health Maintenance Results * CT CHEST WO CONTRAST (07/31/2025 9:22 AM EDT) Anatomical Region Laterality Modality Computed Tomogra phy us Historical Provider MD NOLAND CT PROCEDURES Final R esult * Stress test with myocardial perfusion (06/05/2025 8:15 AM EDT) 06/05/2025 8:15 AM EDT Narrative [facility] - 06/08/2025 2:10 PM EDT [address] [address] Nuclear Medicine Report Signed Patient: Dane Calles MR#: [id number] : 1955 Acct:[id number] Age/Sex: 70 / M ADM Date: 06/05/25 Loc: [facility] Attending Dr: Zane Mendez NP Ordering Physician: Zane Mendez NP Date of Service: 06/05/25 Procedure(s): NM cardiolite stress test Accession Number(s): [id number] cc: Brittany Saldana MD; Zane Mendez NP [...] 06/08/25 1407 DD/ 0815 TD/TT: 06/08/25 0815 Filling Room Operator: Procedure Note Donotuseinterpreter, Image - 06/08/2025 [place] [address] Nuclear Medicine Report Signed Patient: Dane Calles R#: [id number] : 1955cct:[id number] Age/Sex: 70 / MADM Date: 06/05/25 Loc: [facility] Attending Dr: Zane Mendez NP Ordering Physician: Zane Mendez NP Date of Service: 06/05/25 Procedure(s): NM cardiolite stress test Accession Number(s): [id number] cc: Brittany Saldana MD; Zane Mendez NP [...] 06/08/25 1407 DD/ 0815 TD/TT: 06/08/25 0815 Filling Room Operator: us [facility] External Provider CV STRE SS PROCEDURES Edited Result - Final [facility] [address] [place] [phone] * Albumin, Random Urine W/Creatinine (04/10/2025 10:21 AM EDT) Creatinine, Urine 61.10 mg/dL [facility] Microalbumin Urine 14.0 mg/L [facility] Microalbum Creatinine Ratio Ur 22.9 <30 ug/mg cr [facility] Comment:Albumin/Creatinine R atio Reference Ranges: Normal: < 30 ug/mg creatinine Microalbuminuria: 30 - 300 ug/mg creatinineClinical Albuminuria: > 300 ug/mg creatinine 04/10/2025 10:2 1 AM EDT 04/10/2025 11:06 AM EDT us Brittany Saldana MD LAB URINE ORDERABLES Fin al Result Performing Organization Address [facility] Co de Phone Number [facility] [address] [place] [phone] * Hemoglobin A1c (04/06/2025 9:03 AM EDT) Hemoglobin A1c 5.0 <6.0 % [facility] Comment:Hemoglobin A1C Refer ence Range Adults: 4.8 - 6.0 % Non diabetic: < 6.0 % Goal: < 7.0 %Additional Action Suggested: > 8.0 %Note: Hemoglobin A1c results are invalid for patients with abnormal amounts of HbF. Blood transfusions may impact the HbA1c concentration in the patient sample. Estimated Average Glucose 97 mg/dL [facility] Comment:eAG = Estimated ave rage glucose which is %A1C expressed asaverage glucose, using the formula of the R3B-AqxssotGbmpopl Glucose study (ADAG), Diabetes Care, Vol.31,#8,Jun. 2007 04/06/2025 9:03 AM EDT 04/06/2025 11:03 AM EDT us Generic External Data Provider LAB BLOOD ORDERAB LES Final Result Performing Organization Address [facility] Co de Phone Number [facility] [address] [place] [phone] * (ABNORMAL) Lipid Panel, Standard (04/06/2025 9:03 AM EDT) Triglycerides 63 <150 mg/dL [facility] Comment:Desirable Triglyceri de: less than 150 mg/dLBorderline High Triglyceride 150-199 mg/dLHigh Triglyceride: 200-499 mg/dLVery High Triglyceride: greater than or equal to 5OO mg/dL Cholesterol 124 <200 mg/dL [facility] Comment:Desirable Cholestero l: less than 200 mg/dLBorderline High Cholesterol: 200-239 mg/dLHigh Cholesterol: greater than 239 mg/dL LDL Cholesterol Calculated 75 <100 mg/dL [facility] Comment:Desirable LDL: less than 100 mg/dLNear Optimal/Above Optimal LDL: 110- 129 mg/dLBorderline High LDL: 130-159 mg/dLHigh LDL: 160-189 mg/dLVery High LDL: greater than or equal to 190 mg/dL HDL Cholesterol 37(L) >40 mg/dL [facility] Comment:Desirable HDL: great er than 40 mg/dL Note: This HDL assay may give artificially low results in patients with liver disease. 04/06/2025 9:03 AM EDT 04/06/2025 11:23 AM EDT us Generic External Data Provider LAB BLOOD ORDERAB LES Final Result Performing Organization Address [facility]/ZIP Co de Phone Number [facility] [address] [place] [phone] * (ABNORMAL) Hm Colonoscopy (09/19/2024) Pathologist [facility] Colonoscopy Normal Normal [facility] Comment:poor prep us Brittany Saldana MD HEALTH MAINTENANCE Final Result Performing Organization Address [facility]/ZIP Co de Phone Number [facility] [address] [place] [phone] * HEPATITIS C AB W/REFL TO [...] a test for HCV RNA (test code 09426) is suggested. For additional information please refer to http://education.[employer]/faq/BXU88d9 (This link is being provided for informational/ educational purposes only.) 12/09/2021 11:1 3 AM EST us Lulu Garcia ANP HISTORICAL/NON ORDERABLE LABS Fi nal Result [facility] [address] from Last 3 Months or Most Recently Relevant to Health Maintenance Insurance [facility] [employer] OPT[employer] (HMO D-SNP) [facility] ST[facility] Care Teams Branch Manager Relationship Specialty Start Date End Date Brittany Saldana MD [address] [place] [phone] PCP - General Family Medicine 05/08/20 Darrin Hernandez FNP [address] [place] [phone] Nurse Practitioner Family Medicine 10/19/23
--- OUTSIDE RECORDS SUMMARY | 2025-08-16 07:34 | XMS_ITS | Encounter Summary ---
Author Organization [employer] Address [address] [place] [address] Care Team Providers Care Rn Managed Care Name Role Phone Brittany Saldana MD Primary Care Provider + Darrin Hernandez Unavailable Unavailable Reason for Visit * Reason Onset Date Comments Durable Medical Equipment 02/15/2023 Encounter Details Date Type Department Care Team (Late st Contact Info) Description 02/15/2023 Telephone [facility] [address] [place] [address] Brittany Saldana MD [address] [place] [address] Durable Medical Equipment Social History Tobacco Use [...] to POS * Telephone Encounter - [facility] [place] - 02/15/2023 11:14 AM EDT Tc from pt requesting to have script for compression stockings and the diabetic shoes [facility] documented in this encounter Plan of Treatment Upcoming Encounters Date Type Department Care Team (Late st Contact Info) Description 08/22/2025 11:15 AM EDT Office Visit [facility] [address] [place] [phone] Brittany Saldana MD [address] [place] [address] 09/13/2025 1:00 PM EDT Office Visit [facility] [address] [place] [address] Renetta Mitchell, OD [address] [place] [address] 10/30/2025 1:00 PM EST Clinical Support [facility] [address] [place] [address] Janae Walden, RN documented as of this encounter Visit Diagnoses Not on filedocumented in this encounter Additional Health Concerns Assessment Noted Time PHQ-9 Depression Total Score: 10 02/11/ 023 10:47 AM EDT documented as of this encounter Care Teams Rn Managed Care Relationship Specialty Start Date End Date Brittany Saldana MD [address] [place] [phone] PCP - General Family Medicine 05/08/20 Darrin Hernandez FNP [address] [place] [address] Nurse Practitioner Family Medicine 10/19/23 documented as of this encounter
[2025-08-16 07:35] VITALS: BP 156/50; PULSE 101; O2SAT 97; BMI 26.8
--- NOTE | 2025-08-16 07:35 | MHC.OFFVIS ---
Vital Signs 08/16/25 07:35 Height 5 ft 3 in Weight 151 lb 7.321 oz BMI 26.8 BP 156/50 H Blood Pressure Location Lt brachial Position Sitting Pulse 101 H Pulse Source Pulse Oximeter Pulse Oximetry (%) 97 Oxygen Delivery Method Room Air Intake Visit Reasons: Low T3 Intake Note: New patient present today for Low T3 office visit. Produce Wrapper Required: No Accompanied by: Self / Same As Patient Allergies Penicillins Allergy (Verified 08/16/25 07:39) Shortness of Breath Medication List - Last Reconciled 08/16/25 by Marielos Avendano MD albuterol sulfate 90 mcg/actuation 2 puffs inhalation Q6H PRN atorvastatin 20 mg PO BEDTIME bupropion HCl XL 300 mg PO DAILY calcium carbonate-vitamin D3 600 mg-10 mcg (400 unit) (Calcium with Vitamin D) 1 tab PO BID clonidine HCl 0.1 mg PO BEDTIME cyanocobalamin (vitamin B-12) 1,000 mcg PO DAILY docusate sodium 100 mg PO BID PRN finasteride 5 mg PO BEDTIME 90 days fluticasone propionate 50 mcg/actuation 1 spray intranasal DAILY gabapentin 300 mg PO TID hydralazine 25 mg PO TID lancets (OneTouch Delica Plus Lancet) As directed lisinopril 30 mg PO DAILY 90 days meclizine 25 mg PO TID PRN melatonin 5 mg PO BEDTIME methylphenidate HCl ER 36 mg PO QAM multivitamin 1 tab PO DAILY spironolactone 25 mg PO DAILY tadalafil 20 mg PO ONCE PRN 30 days thiamine HCl (vitamin B1) 100 mg PO DAILY trazodone 200 mg PO BEDTIME HPI Comments Details: 70-year-old male who was referred to me for initial evaluation of low total T3 levels. Labs done multiple times over this year most recently from April 2025 showed normal TSH, normal free T4, normal total T4, normal free T3 and mildly low total T3 at 62. Pattern has been similar when labs were done previously in March 2025. No history of thyroid dysfunction. Labs were done because he was having weight gain. Has a history of bariatric surgery sleeve gastrectomy 2022. lost 80 lbs before surgery and 80 lbs after surgery. Patient currently denies heat or cold intolerance, diarrhea or constipation, hair loss, palpitation, anxiety, mood changes, low energy, changes in appearance of eyes or vision changes, tremors, increased diaphoresis or dry skin. ? some weight fluctuations recently Patient denies any difficulty swallowing, pain on swallowing or voice changes or difficulty breathing. Patient denies any history of childhood neck radiation. Denies having ever used lithium, amiodarone or biotin supplements. Patient denies any family history of thyroid cancer or thyroid disease. Physical exam General: sitting comfortably in no acute distress HEENT: neurofibromas noted on face Neck: supple Cardiac: normal heart sounds Pulm: normal breath sounds B/L, no added breath sounds Abd: not distended, no tenderness Extremities: no edema, no signs of myxedema Laboratory Tests 10/03/24 03/26/25 04/06/25 12:13 13:32 09:03 TSH 1.14 1.10 1.75 Free T4 1.21 1.20 Thyroxine (T4) 7.4 7.8 Free T3 2.3 2.7 Total T3 62 L 66 L 04/20/25 08:35 TSH 1.13 Free T4 1.11 Thyroxine (T4) 6.7 Free T3 2.6 Total T3 62 L [facility] Medical History (Updated 08/16/25 @ 08:15 by Marielos Avendano MD) Low serum triiodothyronine (T3) Diabetes Atrial fibrillation Osteoarthritis DJD (degenerative joint disease) Von Recklinghausen disease GERD (gastroesophageal reflux disease) Anxiety Hyperlipidemia Insomnia Sleep apnea with use of continuous positive airway pressure (CPAP) Obesity Depression ADD (attention deficit disorder) Colon polyp Microscopic hematuria HTN (hypertension) AA (alcohol abuse) BPH (benign prostatic hyperplasia) Surgical History History of esophagogastroduodenoscopy (EGD) S/P laparoscopic sleeve gastrectomy Hx of tonsillectomy H/O bilateral inguinal hernia repair H/O umbilical hernia repair H/O colonoscopy Family History Mother Throat cancer Paternal Aunt Colon cancer Maternal Grandfather No problems noted. Sister Heart attack Stented coronary artery Hx of cardiac cath Hypertrophic obstructive cardiomyopathy (HOCM) Social History Household Members: Family Housing: House Are you a primary home care physical therapist to a significant other at home: No Do you presently have visiting nurse or other home services: No Alcohol intake: former Patient Tobacco Use Status: Former Tobacco user service: No Physical Exam Vital Signs: Last Vital Signs Pulse 101 H 08/16/25 07:35 BP 156/50 H 08/16/25 07:35 Pulse Ox 97 08/16/25 07:35 Oxygen Delivery Method Room Air 08/16/25 07:35 BMI result Body Mass Index 26.8 Assessment & Plan Assessment & Plan (1) Low serum triiodothyronine (T3): Code(s): R79.89 - Other specified abnormal findings of blood chemistry Category: Medical Plan: 70-year-old male coming in today for initial evaluation of low total T3 levels. Labs done multiple times over this year most recently from April 2025 showed normal TSH, normal free T4, normal total T4, normal free T3 and mildly low total T3 at 62. Pattern has been similar when labs were done previously in March 2025. No history of thyroid dysfunction. Labs were done because he was having weight gain. Has a history of bariatric surgery sleeve gastrectomy 2022. lost 80 lbs before surgery and 80 lbs after surgery. I explained to the patient that T3 can fluctuate depending on time of day, nutritional intake. TSH and free T4 levels are the most helpful in assessing thyroid function as they are more stable. He has had multiple normal TSH and free T4 levels. I also explained to him that his total T3 is only mildly low, very close to the lower end of normal and the normal ranges are defined by palpitation cut offs, individual readings can very a little bit. Total T3 is also dependent on the amount of protein in the body, as it is protein bound, I explained to him that he might be having low total T3 levels as he has had significant weight loss over the past 2 years after sleeve gastrectomy. At this time I am not concerned about any thyroid dysfunction and patient does not need to follow up with regards to his thyroid labs. All questions were answered, patient was appreciative for the consult. Plan See above Coding Level of Care Code New Pt Level 3 (58719) Diagnoses Low serum triiodothyronine (T3) R79.89
== END 2025-08-16 08:01 | disposition home or self-care (01) ==
LOC: HO.ENCR 07:30
PROVIDERS: PCP Internal Medicine; Visit Provider Student in an Organized Health Care Education/Training Program
DX: R79.89 Other specified abnormal findings of blood chemistry (principal)
CPT/HCPCS: 99203

== ENCOUNTER → 2025-08-16 07:29 | Outpatient (BNVA) | payer OTHER, SELFPAY | PROVIDERS: PCP Internal Medicine; Visit Provider Student in an Organized Health Care Education/Training Program | DX: Z71.2 Person consulting for explanation of examination or test findings (principal); R79.89 Other specified abnormal findings of blood chemistry; Z98.84 Bariatric surgery status | CPT/HCPCS: 99202 ==

== ENCOUNTER 2025-08-24 09:42 | Outpatient (REF) | payer OTHER, SELFPAY ==
--- OUTSIDE RECORDS SUMMARY | 2025-08-22 11:15 | XMS_ITS | Encounter Summary ---
Author Organization [employer] Address [address] [place] [phone] Care Team Providers Care Equipment Records Supervisor Name Role Phone Brittany Saldana MD Primary Care Provider + Darrin Hernandez Unavailable Unavailable Reason for Referral * Consultation (Routine) - Closed Specialty Diagnoses / Procedures Referred By Contac t Referred To Contact Behavioral Health Diagnoses PTSD (post-traumatic stress disorder) Attention deficit hyperactivity disorder, predominantly inattentive type Brittany Saldana MD [address] [place] [id number] Phone: tel: fax: Referral ID Status Reason Start Date Expiration Date V isits Requested Visits Authorized [id number] Closed Specialty Services Required 08/22/2025 08/22/2026 1 1 Encounter Details Date Type Department Care Team (Latest Contact Info) Description 08/22/2025 11:15 AM EDT Office Visit [facility] MEDICINE [address] [place], [place] [phone] Brittany Saldana MD [address] [place], [place] [phone] Attention deficit hyperactivity disorder, predominantly inattentive type (Primary Dx); Essential (primary) hypertension; PTSD (post-traumatic stress disorder); Obstructive sleep apnea syndrome; Encounter for vaccination; Encounter for immunization Social History Tobacco Use Types Packs/Day Years Used Date Smoking Tobacco: Never Smokeless Tobacco: Never Alcohol Use Standard Drinks/Week Comments Not Currently 0 (1 standard drink = 0.6 oz pur e alcohol) Depression Answer Date Recorded Patient Health Questionnaire-9 Score 8 08/22/2025 Patient Health Questionnaire-9 Score 8 08/22/2025 Last PHQ-9: Questionnaire Data Not on file [...] Date Recorded Patient Health Questionnaire-2 Score 2 08/22/2025 Internet Access Answer Date Recorded Internet Access [...] Sign Reading Time Taken Comments Blood Pressure 140/60 08/22/2025 11:18 AM EDT Pulse 80 08/22/2025 11:18 AM EDT Temperature 36.4 C (97.6 F) 08/22/2025 11:18 AM EDT Respiratory Rate 14 08/22/2025 11:1 8 AM EDT Oxygen Saturation - - Inhaled Oxygen Concentration - - Weight 71.6 kg (157 lb 12.8 oz) 025 11:18 AM EDT Height 160 cm (5' 3 ) 08/22/2025 11:18 AM EDT Body Mass Index 27.95 08/22/2025 11:18 AM EDT documented in this encounter Functional Status * Over the past 2 weeks, how often have you been bothered by any of the following problems? Question Answer Date of Assessment Author Patient Health Questionnaire -2 Score 2 08/22/2025 11:20 AM EDT Wendy Bean MA * Little interest or pleasure in doing things Answer Date of Assessment Author Several days 08/22/2025 11:20 AM EDT Wendy Bean MA * Feeling down, depressed, or hopeless Answer Date of Assessment Author Several days 08/22/2025 11:20 AM EDT Wendy Bean MA * Trouble falling or staying asleep, or sleeping too much Answer Date of Assessment Author More than half the days 08/22/2025 11:20 AM EDT Wendy Bean MA * Feeling tired or having little energy Answer Date of Assessment Author Not at all 08/22/2025 11:20 AM EDT Wendy Bean MA * Poor appetite or overeating Answer Date of Assessment Author Several days 08/22/2025 11:20 AM EDT Wendy Bean MA * Feeling bad about yourself - or that you are a failure or have let yourself or your family down Answer Date of Assessment Author Several days 08/22/2025 11:20 AM EDT Wendy Bean MA * Trouble concentrating on things, such as reading the newspaper or watching television Answer Date of Assessment Author More than half the days 08/22/2025 11:20 AM EDT Wendy Bean MA * Moving or speaking so slowly that other people could have noticed? Or the opposite - being so fidgety or restless that you have been moving around a lot more than usual. Answer Date of Assessment Author Not at all 08/22/2025 11:20 AM EDT Wendy Bean MA * Thoughts that you would be better off or hurting yourself in some way Answer Date of Assessment Author Not at all 08/22/2025 11:20 AM EDT Wendy Bean MA * Patient Health Questionnaire-9 Score Answer Date of Assessment Author 8 08/22/2025 11:20 AM EDT Wendy eBan MA * How difficult have these problems made it for you to do your work, take care of things at home, or get along with other people? Answer Date of Assessment Author Somewhat difficult 08/22/2025 11:20 AM EDT Wendy Hodgson do, MA * Over the last 2 weeks, how often have you been bothered by any of the following problems? Question Answer Date of Assessment Author Feeling nervous, anxious, or on edge 2 08/22/2025 11:20 AM EDT Wendy Bean MA Not being able to stop or co ntrol worrying 1 08/22/2025 11:20 AM EDT Wendy Bean MA Worrying too much about diff erent things 2 08/22/2025 11:20 AM EDT Wendy Bean MA Trouble relaxing 3 08/22/2025 11:20 AM EDT Wendy Bean MA Being so restless that it is hard to sit still 2 08/22/2025 11:20 AM [place] Wendy Bean MA Becoming easily annoyed or irritable 0 08/22/2025 11:20 AM EDT Wendy Bean MA Feeling afraid as if somethi ng awful might happen 0 08/22/2025 11:20 AM EDT Wendy Bean MA LAURA-7 Total Score 10 08/22/2025 11:20 AM [place] Wendy Bean MA documented as of this encounter Progress Notes * Brittany Saldana MD - 08/22/2025 11:15 AM EDT SUBJECTIVE: Dane Calles is a 70 y.o. year old male who presents for follow up htn. Denies recent illness, injury, or hospitalization. Overall patient is doing well, he is currently on lisinopril 30 mg and BPs at home range anywhere between 130s to 140s over 60s, he does not have occasional chest pain or dyspnea. Acute Concerns: He is having increased difficulty staying asleep, he usually feels okay for 3 to 4 hours then wakesup for 1 or 2 hours. He he has also have increased anxiety over the past few weeks/months, difficulty concentrating and even achieving tasks like reading a book or following directions. He tells me used to do better when he was on Adderall and he is noticing slow steady exacerbation of anxiety since he was switched to Concerta (generic Rx) last year due to insurance formulary change. 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 Social History Social History Narrative Not on file Problem List[1] Family History[2] Review of Systems Constitutional: Negative for fever. HENT: Negative for congestion, ear pain, rhinorrhea and sore throat. Eyes: Negative for pain and discharge. Respiratory: Negative for cough and shortness of breath. Cardiovascular: Negative for chest pain. Gastrointestinal: Negative for abdominal pain, constipation, diarrhea and nausea. Endocrine: Negative for polydipsia. Genitourinary: Negative for dysuria and frequency. Musculoskeletal: Positive for arthralgias. Negative for back pain and neck pain. Neurological: Negative for dizziness, numbness and headaches. Psychiatric/Behavioral: Positive for sleep disturbance. Negative for agitation. The patient is nervous/anxious. OBJECTIVE: Vitals: 08/22/25 1118 BP: (!) 140/60 Pulse: 80 Resp: 14 Temp: 97.6 ??F (36.4 ??C) Physical Exam Constitutional: Appearance: Normal appearance. [...] oriented to person, place, and time. Psychiatric: Attention and Perception: Attention normal. Mood and Affect: Mood normal. Speech: Speech normal. Thought Content: Thought content normal. Problem List Items Addressed This Visit Essential (primary) hypertension Controlled. Compliant w/meds Continue lisinopril 30 mg, felodipine ER 10 mg, hydralazine 25 mg 3 times daily spironolactone 25 mg. Counseled re low salt diet/increase moderate physical activity. Check home BP BIW and prn CP/TOLEDO/MARQUEZ Non smoking patient. Relevant Medications cloNIDine (Catapres) 0.2 MG tablet Attention deficit hyperactivity disorder, predominantly inattentive type - Primary Currently with increased anxiety and decrease productivity and focus. I will increase methylphenidate to 54 mg/D and refer her to prescriber to optimize ADD/ADHD management. We discussed importance to follow-up with AUD program Follow-up with me in 4 to 6 weeks Relevant Medications methylphenidate ER (Concerta) 54 MG CR tablet Other Relevant Orders Referral to Behavioral Health PTSD (post-traumatic stress disorder) Increase clonidine up to 0.3 mg nightly Continue trazodone + Wellbutrin and management of ADHD. Relevant Medications methylphenidate ER (Concerta) 54 MG CR tablet cloNIDine (Catapres) 0.2 MG tablet Other Relevant Orders Referral to Behavioral Health Obstructive sleep apnea syndrome ? Resolved status post bariatric surgery? Will obtain last sleep study from Dr. Mobley's office. 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 [3] Current Outpatient Medications on File Prior to Visit Medication Sig Dispense Refill albuterol 108 (90 Base) MCG/ACT inhaler INHALE 2 PUFFS EVERY 4 TO 6 HOURS NEEDED 8.5 g 11 ARIPiprazole (Abilify) 2 MG tablet Take 1 tablet (2 mg) by mouth Once per day. 90 tablet 3 atorvastatin (Lipitor) 20 MG tablet TAKE ONE TABLET BY MOUTH AT BEDTIME (FOR CHOLESTEROL) 30 [id number] buPROPion XL (Wellbutrin XL) 300 MG 24 hr tablet Take 1 tablet (300 mg) by mouth in the morning. 90tablet 3 cyanocobalamin (Vitamin B-12) 1000 MCG tablet TAKE ONE TABLET BY MOUTH EVERY MORNING 30 tablet 11 docusate sodium (Colace) 100 MG capsule TAKE 1 CAPSULE BY MOUTH TWICE DAILY NEEDED 180 capsule 2 felodipine ER (Plendil) 10 MG 24 hr tablet Take 10 mg by mouth Once per day. Do not crush, chew, orsplit. Rx'd by cardiology ferrous sulfate 325 (65 Fe) MG EC tablet TAKE ONE TABLET BY MOUTH ONCE DAILY WITH BREAKFAST, DO NOTCRUSH OR CHEW. 30 tablet 2 finasteride (Proscar) 5 MG tablet TAKE 1 TABLET BY MOUTH ONCE DAILY fluticasone (Flonase) 50 MCG/ACT nasal spray USE 1-2 SPRAYS EACH NOSTRIL ONCE DAILY NEEDED 16 g 11 gabapentin (Neurontin) 400 MG capsule TAKE ONE CAPSULE BY MOUTH THREE TIMES DAILY 90 capsule 2 glucose blood (Offeesuch Ultra) test strip TEST BLOOD SUGAR TWICE DAILY 100 strip 11 hydrALAZINE (Apresoline) 25 MG tablet Take 25 mg by mouth in the morning and 25 mg at noon and 25 mg in the evening. Rx'd by associate professor of surgery . Lancets [facility] Use 1 lancet to monitor blood glucose twice daily 100 each 11 lisinopril 30 MG tablet Take 30 mg by mouth Once per day. Cardiology increased on 9/30/25 meclizine (Antivert) 25 MG tablet TAKE 1 TABLET BY MOUTH THREE TIMES DAILY IN THE MORNING, AT NOON,AND AT BEDTIME NEEDED FOR DIZZINESS 90 tablet 0 melatonin 5 MG tablet TAKE ONE TABLET BY MOUTH AT BEDTIME 30 tablet 11 Multiple Vitamins-Minerals (CertaVite/Antioxidants) tablet Take 1 tablet by mouth in the morning. 30 tablet 11 olopatadine (Pataday) 0.1 % ophthalmic solution Administer 1 drop into both eyes 2 times daily. 5 mL 1 polyethylene glycol, PEG, 3350 (MiraLax) 17 GM/SCOOP powder Take 17 g by mouth if needed each day (constipation >1d). 527 g 11 spironolactone (Aldactone) 25 MG tablet Take 25 mg by mouth Once per day. Rx'd by cardiology thiamine (Vitamin B-1) 100 MG tablet TAKE ONE TABLET BY MOUTH EVERY MORNING 30 tablet 11 traZODone (Desyrel) 100 MG tablet TAKE TWO TABLETS BY MOUTH AT BEDTIME 60 tablet 11 [DISCONTINUED] cloNIDine (Catapres) 0.1 MG tablet TAKE 1 TABLET BY MOUTH AT BEDTIME 90 tablet 3 [DISCONTINUED] lisinopril 10 MG tablet Take 1.5 tablets (15 mg) by mouth Once per day. (Patient taking differently: Take 30 mg by mouth Once per day. Increased by cardiology on 08/14/25 to 30mg) 45 tablet 11 [DISCONTINUED] methylphenidate ER (Concerta) 36 MG CR tablet TAKE 1 TABLET BY MOUTH EVERY DAY IN THE MORNING, DO NOT BREAK, CRUSH, DISSOLVE OR CHEW 30 tablet 0 No current facility-administered medications on file prior to visit. documented in this encounter Miscellaneous Notes * Assessment & Plan Note - Brittany Saldana MD - 08/22/2025 3:39 PM EDT Associated Problem(s): PTSD (post-traumatic stress disorder) Increase clonidine up to 0.3 mg nightly Continue trazodone + Wellbutrin and management of ADHD. * Assessment & Plan Note - Brittany Saldana MD - 08/22/2025 2:32 PM EDT Associated Problem(s): Obstructive sleep apnea syndrome ? Resolved status post bariatric surgery? Will obtain last sleep study from Dr. Mobley's office. Patient will continue on O2 supplementation overnight 1 Li NC * Assessment & Plan Note - Brittany Saldana MD - 08/22/2025 2:29 PM EDT Associated Problem(s): Attention deficit hyperactivity disorder, predominantly inattentive type Currently with increased anxiety and decrease productivity and focus. I will increase methylphenidate to 54 mg/D and refer her to prescriber to optimize ADD/ADHD management. We discussed importance to follow-up with [facility] program Follow-up with ok in 4 to 6 weeks * Assessment & Plan Note - Brittany Saldana MD - 08/22/2025 12:40 PM EDT Associated Problem(s): Essential (primary) hypertension Controlled. Compliant w/meds Continue lisinopril 30 mg, felodipine ER 10 mg, hydralazine 25 mg 3 times daily spironolactone 25 mg. Counseled re low salt diet/increase moderate physical activity. Check home BP BIW and prn CP/TOLEDO/MARQUEZ Non smoking patient. documented in this encounter Plan of Treatment Upcoming Encounters Date Type Department Care Team (Late st Contact Info) Description 09/13/2025 1:00 PM EDT Office Visit [facility] OPTOMETRY [address] [place] [address] Renetta Mitchell OD [address] [place] [address] 10/30/2025 1:00 PM EST Clinical Support [facility] MEDICINE [address] [place] [address] Janae Walden RN 11/02/2025 11:15 AM EST Office Visit [facility] MEDICINE [address] [place] [address] Brittany Saldana MD [address] [place] [address] Scheduled Referrals Name Type Priority Associated Diagnoses Orde r Schedule Referral to Behavioral Health Outpatient Referral Routine PTSD (post-traumatic stress disorder) Attention deficit hyperactivity disorder, predominantly inattentive type Expected: 08/22/2025 (Approximate), Expires: 02/19/2027 documented as of this encounter Goals Goal Patient Goal Type Associated Problems Recent Progress Patient-Stated? Author Blood Pressure < 140/90 Blood Pressure 140/60(2024 11:18 AM EDT) No Venkatesh Skinner PharmD Decrease the frequency of unwanted emotions so that daily functioning is improved General On track( 4:48 PM EDT) No Janae Walden RN Hemoglobin A1c < 7 Result Component 5(04/06/2025 9:03 AM EDT) No Venkatesh Skinner, PharmD documented as of this encounter Visit Diagnoses Diagnosis Attention deficit hyperactivity disorder, predominantly inattentive type- Primary Essential (primary) hypertension Unspecified essential hypertension PTSD (post-traumatic stress disorder) Posttraumatic stress disorder Obstructive sleep apnea syndrome Obstructive sleep apnea (adult) (pediatric) Encounter for vaccination Encounter for immunization documented in this encounter Additional Health Concerns Assessment Noted Time PHQ-9 Depression Total Score: 8 08/22/20 25 11:20 AM EDT documented as of this encounter Care Teams Equipment Records Supervisor Relationship Specialty Start Date End Date Brittany Saldana MD [address] [place] [id number] PCP - General Family Medicine 05/08/20 Darrin Hernandez FNP [address] [place] [id number] Nurse Practitioner Family Medicine 10/19/23 documented as of this encounter
--- OUTSIDE RECORDS SUMMARY | 2025-08-24 10:25 | XMS_ITS | Encounter Summary ---
Author Organization [employer] Address [address] [place] [id number] Care Team Providers Care Bulk Folder Name Role Phone Brittany Saldana MD Primary Care Provider + Darrin Hernandez Unavailable Unavailable Reason for Visit * Reason Onset Date Comments Durable Medical Equipment 02/15/2023 Encounter Details Date Type Department Care Team (Late st Contact Info) Description 02/15/2023 Telephone [facility] MEDICINE [address] [place] [address] Brittany Saldana MD [address] [place] [address] Durable Medical Equipment Social History Tobacco Use [...] Description 09/13/2025 1:00 PM EDT Office Visit [facility] OPTOMETRY [address] [place] [address] Renetta Mitchell OD [address] [place] [address] 10/30/2025 1:00 PM EST Clinical Support [facility] MEDICINE [address] [place] [address] Janae Walden, CORTES 11/02/2025 11:15 AM EST Office Visit [facility] MEDICINE [address] [place] [address] Brittany Saldana MD [address] [place] [address] documented as of this encounter Visit Diagnoses Not on filedocumented in this encounter Additional Health Concerns Assessment Noted Time PHQ-9 Depression Total Score: 10 02/11/ 023 10:47 AM EDT documented as of this encounter Care Teams Bulk Folder Relationship Specialty Start Date End Date Brittany Saldana MD [address] [place] [address] PCP - General Family Medicine 05/08/20 Darrin Hernandez FNP [address] [place] [address] Nurse Practitioner Family Medicine 10/19/23 documented as of this encounter
--- OUTSIDE RECORDS SUMMARY | 2025-08-24 10:25 | XMS_ITS | Encounter Summary ---
Author Organization [employer] Address [address] [place] [address] Care Team Providers Care Travel Rn Name Role Phone Brittany Saldana MD Primary Care Provider + Darrin Hernandez Unavailable Unavailable Reason for Visit * Reason Onset Date Comments chart prep 08/21/2025 Encounter Details Date Type Department Care Team (Late st Contact Info) Description 08/21/2025 Telephone [facility] MEDICINE [address] [place] [address] Brittany Saldana MD 230 [place] [address] chart prep Social History Tobacco Use Types [...] encounter Miscellaneous Notes * Telephone Encounter - Esa Melchor [place] - 08/21/2025 3:17 PM EDT Chart Prep Labs: done Images: done Referrals: complete Vaccines due: Covid and Flu Screenings: not applicable Overdue care gaps: PHQ-9 and LAURA-7 documented in this encounter Plan of Treatment Upcoming Encounters Date Type Department Care Team (Late st Contact Info) Description 09/13/2025 1:00 PM EDT Office Visit [facility] OPTOMETRY [address] [place] [address] Renetta Mitchell OD [address] [place] [address] 10/30/2025 1:00 PM EST Clinical Support [facility] MEDICINE [address] [place] [address] Janae Walden, CORTES 11/02/2025 11:15 AM EST Office Visit [facility] MEDICINE [address] [place] [address] Brittany Saldana MD 230 [place] [address] documented as of this encounter Goals Goal [...] documented as of this encounter Care Teams Travel Rn Relationship Specialty Start Date End Date Brittany Saldana MD [address] [place] [address] PCP - General Family Medicine 05/08/20 Darrin Hernandez FNP [address] [place] [address] Nurse Practitioner Family Medicine 10/19/23 documented as of this encounter
--- OUTSIDE RECORDS SUMMARY | 2025-08-24 10:25 | XMS_ITS | Encounter Summary ---
Author Organization [employer] Address [address] [facility] 7t [place] [address] Care Team Providers Care Cleaning Maid Name Role Phone Brittany Saldana MD Primary Care Provider + Darrin Hernandez Unavailable Unavailable Encounter Details Date Type Department Care Team (Latest Contact Info) Description 08/22/2025 Travel Social History Tobacco Use Types Packs/Day [...] AM EDT documented as of this encounter Functional Status * Over the [...] Author 8 08/22/2025 11:20 AM EDT Wendy Bean MA * How difficult have these problems [...] LAURA-7 Total Score 10 08/22/2025 11:20 AM Wendy Marlow MA documented as of this encounter Plan of Treatment Upcoming Encounters Date Type Department Care Team (Late st Contact Info) Description 09/13/2025 1:00 PM EDT Office Visit [facility] OPTOMETRY [address] [place] [address] Renetta Mitchell, OD [address] [place] [address] 10/30/2025 1:00 PM EST Clinical Support [facility] [address] [place], [place] [phone] Janae Walden RN 11/02/2025 11:15 AM EST Office Visit [facility] [address] [place], [place] [phone] Brittany Saldana MD [address] [place] [address] documented as of this encounter Goals Goal Patient Goal Type Associated Problems Recent Progress Patient-Stated? Author Blood Pressure < 140/90 Blood Pressure 140/60(2024 11:18 AM EDT) No Venkatesh Skinner PharmHillary Decrease the frequency of unwanted emotions [...] documented as of this encounter Care Teams Cleaning Maid Relationship Specialty Start Date End Date Brittany Saldana MD [address] [place] [address] PCP - General Family Medicine 05/08/20 Darrin Hernandez FNP [address] [place] [address] Nurse Practitioner Family Medicine 10/19/23 documented as of this encounter
--- OUTSIDE RECORDS SUMMARY | 2025-08-24 10:25 | XMS_ITS | Encounter Summary ---
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 documented in this encounter Plan of Treatment Upcoming Encounters Date Type Department Care Team (Late st Contact Info) Description 09/13/2025 1:00 PM EDT Office Visit [facility] OPTOMETRY [address] [place] [address] Renetta Mitchell, GLEN [address] [place] [address] 10/30/2025 1:00 PM EST Clinical Support [facility] MEDICINE [address] [place] [address] Janae Walden, CORTES 11/02/2025 11:15 AM EST Office Visit [facility] MEDICINE [address] [place] [address] Brittany Saldana MD [address] [place] [address] documented as of this encounter Visit Diagnoses Diagnosis 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, type 1 (von Recklinghausen's disease) (CMS/HCC) (HCC) Neurofibromatosis, Type 1 (von Recklinghausen's disease) documented in this encounter Additional Health Concerns Assessment Noted Time PHQ-9 Depression Total Score: 7 07/06/20 23 2:07 PM EDT documented as of this encounter Care Teams Finance Advisor Relationship Specialty Start Date End Date Brittany Saldana MD [address] [place] [address] PCP - General Family Medicine 05/08/20 Darrin Hernandez FNP [address] [place] [address] Nurse Practitioner Family Medicine 10/19/23 documented as of this encounter
--- OUTSIDE RECORDS SUMMARY | 2025-08-24 10:25 | XMS_ITS | Encounter Summary ---
Author Organization [employer] Address [address] [place] [address] [place] [address] Care Team Providers Care Boring And Filling Machine Operator Name Role Phone Brittany Saldana MD Primary Care Provider + Darrin Hernandez Unavailable Unavailable Reason for Visit * Reason Onset Date Comments Med Refill 05/20/2024 Encounter Details Date Type Department Care Team (Late st Contact Info) Description 05/20/2024 Refill [facility] MEDICINE [address] [place] [address] Darrin Hernandez FNP Social History Tobacco Use [...] Description 09/13/2025 1:00 PM EDT Office Visit [facility] OPTOMETRY [address] [place] [address] Renetta Mitchell, GLEN [address] [place] [address] 10/30/2025 1:00 PM EST Clinical Support [facility] MEDICINE [address] [place] [address] Janae Walden RN 11/02/2025 11:15 AM EST Office Visit [facility] MEDICINE [address] [place] [address] Brittany Saldana MD 230 [place] [address] documented as of this encounter Goals Goal Patient Goal Type Associated Problems Recent Progress Patient-Stated? Author Blood Pressure < 140/90 Blood Pressure 140/60(2024 11:18 AM EDT) No Venkatesh Skinner PharmD Hemoglobin A1c < 7 Result Component 5(04/06/2025 9:03 AM EDT) No Venkatesh Skinner PharmD documented as of this encounter Visit Diagnoses Not on filedocumented in this encounter Additional Health Concerns Assessment Noted Time PHQ-9 Depression Total Score: 4 03/06/20 24 2:22 PM EDT documented as of this encounter Care Teams Boring And Filling Machine Operator Relationship Specialty Start Date End Date Brittany Saldana MD [address] [place] [address] PCP - General Family Medicine 05/08/20 Darrin Hernandez FNP [address] [place] [address] Nurse Practitioner Family Medicine 10/19/23 documented as of this encounter
--- OUTSIDE RECORDS SUMMARY | 2025-08-24 10:25 | XMS_ITS | Encounter Summary ---
Author Organization [employer] Address [address] [place] [address] Care Team Providers Care Die Forger Name Role Phone Brittany Saldana MD Primary Care Provider + Darrin Hernandez Unavailable Unavailable Reason for Visit * Reason Onset Date Comments Med Refill 06/11/2024 Encounter Details Date Type Department Care Team (Late st Contact Info) Description 06/11/2024 Refill [facility] MEDICINE [address] [place] [address] Brittany Saldana MD [address] [place] [address] Social History Tobacco Use Types Packs/Day Years [...] Visit [facility] OPTOMETRY [address] [place] [address] Renetta Mitchell OD [address] [place] [address] 10/30/2025 1:00 PM EST Clinical Support [facility] MEDICINE [address] [place] [address] Janae Walden RN 11/02/2025 11:15 AM EST Office Visit [facility] MEDICINE [address] [place] [address] Brittany Saldana MD [address] [place] [address] documented as of this encounter Goals Goal Patient Goal Type Associated Problems Recent Progress Patient-Stated? Author Blood Pressure < 140/90 Blood Pressure 140/60(2024 11:18 AM EDT) No Venkatesh Skinner, Magn[place] Hemoglobin A1c < 7 Result Component 5(04/06/2025 9:03 AM EDT) No Venkatesh Skinner, Magnolia documented as of this encounter Visit Diagnoses Not on filedocumented in this encounter Additional Health Concerns Assessment Noted Time PHQ-9 Depression Total Score: 4 03/06/20 24 2:22 PM EDT documented as of this encounter Care Teams Die Forger Relationship Specialty Start Date End Date Brittany Saldana MD 230 [place] [address] PCP - General Family Medicine 05/08/20 Darrin Hernandez FNP 230 [place] [address] Nurse Practitioner Family Medicine 10/19/23 documented as of this encounter
--- OUTSIDE RECORDS SUMMARY | 2025-08-24 10:25 | XMS_ITS | Encounter Summary ---
Author Organization [employer] Address [address] [place] [address] 7 [place] [address] Care Team Providers Care C Engineer Name Role Phone Brittany Saldana MD Primary Care Provider + Darrin Hernandez Unavailable Unavailable Encounter Details Date Type Department Care Team (Latest Contact Info) Description 08/07/[address] [facility] CONVERSIONS Dental, Provider, DDS Social History [...] Description 09/13/2025 1:00 PM EDT Office Visit [facility] OPTOMETRY [address] [place] [address] Renetta Mitchell OD [address] [place] [address] 10/30/2025 1:00 PM EST Clinical Support [facility] MEDICINE 230 [place] [address] Janae Walden RN 11/02/2025 11:15 AM EST Office Visit [facility] MEDICINE [address] [place] [address] Brittany Saldana MD 230 [place] [address] documented as of this encounter Visit Diagnoses Not on filedocumented in this encounter Care Teams C Engineer Relationship Specialty Start Date End Date Brittany Saldana MD [address] [place] [address] PCP - General Family Medicine 05/08/20 Darrin Hernandez FNP [address] [place] [address] Nurse Practitioner Family Medicine 10/19/23 documented as of this encounter
--- OUTSIDE RECORDS SUMMARY | 2025-08-24 10:25 | XMS_ITS | Encounter Summary ---
Author Organization [employer] Address [address] [place] [address] 7 [place] [address] Care Team Providers Care Jig Builder Helper Name Role Phone Brittany Saldana MD Primary Care Provider + Darrin Hernandez Unavailable Unavailable Reason for Visit * Reason Onset Date Comments Med Refill 02/08/2024 Encounter Details Date Type Department Care Team (Late st Contact Info) Description 02/08/2024 Refill [facility] [address] [place] [address] Brittany Saldana MD [address] [place] [address] Social History Tobacco Use Types Packs/Day Years [...] Description 09/13/2025 1:00 PM EDT Office Visit [facility] OPTOMETRY [address] [place] [address] Renetta Mitchell OD [address] [place] [address] 10/30/2025 1:00 PM EST Clinical Support [facility] MEDICINE 230 [place] [address] Janae Walden RN 11/02/2025 11:15 AM EST Office Visit [facility] MEDICINE [address] [place] [address] Brittany Saldana MD [address] [place] [address] documented as of this encounter Visit Diagnoses Not on filedocumented in this encounter Additional Health Concerns Assessment Noted Time PHQ-9 Depression Total Score: 1 12/27/19 24 1:53 PM EST documented as of this encounter Care Teams Jig Builder Helper Relationship Specialty Start Date End Date Brittany Saldana MD [address] [place] [address] PCP - General Family Medicine 05/08/20 Darrin Hernandez FNP [address] [place] [address] Nurse Practitioner Family Medicine 10/19/23 documented as of this encounter
--- OUTSIDE RECORDS SUMMARY | 2025-08-24 10:25 | XMS_ITS | Encounter Summary ---
Author Organization [employer] Address [address] [place] [address] 7 [place] [address] Care Team Providers Care Director Of Critical Care Name Role Phone Brittany Saldana MD Primary Care Provider + Darrin Hernandez Unavailable Unavailable Reason for Visit * Reason Onset Date Comments Appointment 09/10/2023 Encounter Details Date Type Department Care Team (Late st Contact Info) Description 09/10/2023 Telephone [facility] AD[facility] D[facility]AL [address] [place] [address] Misbah Kerraris [address] [place] [address] Appointment Social History Tobacco Use Types Packs/Day [...] cleaning appt. Last appt he had in [place] was deep leaning in September and the [...] Description 09/13/2025 1:00 PM EDT Office Visit [facility] OPTOMETRY [address] [place] [address] Renetta Mitchell OD [address] [place] [address] 10/30/2025 1:00 PM EST Clinical Support [facility] MEDICINE [address] [place] [address] Janae Walden, RN 11/02/2025 11:15 AM EST Office Visit [facility] MEDICINE [address] [place] [address] Brittany Saldana MD 230 [place] [address] documented as of this encounter Visit Diagnoses Not on filedocumented in this encounter Additional Health Concerns Assessment Noted Time PHQ-9 Depression Total Score: 4 09/06/20 23 11:30 AM EDT documented as of this encounter Care Teams Director Of Critical Care Relationship Specialty Start Date End Date Brittany Saldana MD [address] [place] [address] PCP - General Family Medicine 05/08/20 Darrin Hernandez FNP [address] [place] [address] Nurse Practitioner Family Medicine 10/19/23 documented as of this encounter
--- OUTSIDE RECORDS SUMMARY | 2025-08-24 10:25 | XMS_ITS | Encounter Summary ---
Author Organization [employer] Address [address] [place] [address] [place] [address] Care Team Providers Care Mud Mixer Operator Name Role Phone Brittany Saldana MD Primary Care Provider + Darrin Hernandez Unavailable Unavailable Reason for Visit * Reason Onset Date Comments Med Refill 07/23/2024 Encounter Details Date Type Department Care Team (Late st Contact Info) Description 07/23/2024 Refill [facility] MEDICINE [address] [place] [address] [employer] FNP [address] [place] [address] Depression, unspecified depression type Social History Tobacco [...] the past 12 months, has t he [employer], gas, oil or water company threatened to [...] Description 09/13/2025 1:00 PM EDT Office Visit [facility] OPTOMETRY [address] [place] [address] Renetta Mitchell OD [address] [place] [address] 10/30/2025 1:00 PM EST Clinical Support [facility] MEDICINE [address] [place] [address] Janae Walden RN 11/02/2025 11:15 AM EST Office Visit [facility] MEDICINE [address] [place] [address] Brittany Saldana MD [address] [place] [address] documented as of this encounter Goals Goal Patient Goal Type Associated Problems Recent Progress Patient-Stated? Author Blood Pressure < 140/90 Blood Pressure 140/60(2024 11:18 AM EDT) No Venkatesh Skinner, PharmD Hemoglobin A1c < 7 Result Component 5(04/06/2025 9:03 AM EDT) Venkatesh Mccann, CarlosD documented as of this encounter Visit Diagnoses Diagnosis Depression, unspecified depression type documented in this encounter Additional Health Concerns Assessment Noted Time PHQ-9 Depression Total Score: 4 03/06/20 24 2:22 PM EDT documented as of this encounter Care Teams Mud Mixer Operator Relationship Specialty Start Date End Date Brittany Saldana MD [address] [place] [address] PCP - General Family Medicine 05/08/20 Darrin Hernandez FNP [address] [place] [address] Nurse Practitioner Family Medicine 10/19/23 documented as of this encounter
--- OUTSIDE RECORDS SUMMARY | 2025-08-24 10:25 | XMS_ITS | Encounter Summary ---
Author Organization [employer] Address [address] [place] [address] 7 [place] [address] Care Team Providers Care Terrazzo Finisher Name Role Phone Brittany Saldana MD Primary Care Provider + Darrin Hernandez Unavailable Unavailable Encounter Details Date Type Department Care Team (Late st Contact Info) Description 08/07/2025 Orders Only [facility] [address] [place] [address] ProviderDavid MD Social History Tobacco Use Types [...] 09/13/2025 1:00 PM EDT Office Visit [facility] OPTOMETRY [address] [place] [address] Renetta Mitchell, OD [address] [place] [address] 10/30/2025 1:00 PM EST Clinical Support [facility] MEDICINE [address] [place] [address] Janae Walden, CORTES 11/02/2025 11:15 AM EST Office Visit [facility] MEDICINE [address] [place] [address] Brittany Saldana MD [address] [place] [address] documented as of this encounter Goals Goal Patient Goal Type Associated Problems Recent Progress Patient-Stated? Author Blood Pressure < 140/90 Blood Pressure 140/60(2024 11:18 AM EDT) No Venkatesh Skinner, PharmD Decrease [...] documented as of this encounter Care Teams Terrazzo Finisher Relationship Specialty Start Date End Date Brittany Saldana MD [address] [place] [address] PCP - General Family Medicine 05/08/20 Darrin Hernandez FNP [address] [place] [address] Nurse Practitioner Family Medicine 10/19/23 documented as of this encounter
--- OUTSIDE RECORDS SUMMARY | 2025-08-24 10:25 | XMS_ITS | Encounter Summary ---
Author Organization [employer] Address [address] [place] [address] [place] [address] Care Team Providers Care Trademark Attorney Name Role Phone Brittany Saldana MD Primary Care Provider + Darrin Hernandez Unavailable Unavailable Reason for Visit * Reason Comments Med Refill Encounter Details Date Type Department Care Team (Late st Contact Info) Description 04/21/2024 Refill [facility] MEDICINE [address] [place] [address] Brittany Saldana MD [address] [place] [address] Mild intermittent asthma without complication Social History [...] Description 09/13/2025 1:00 PM EDT Office Visit [facility] OPTOMETRY [address] [place] [address] Renetta Mitchell OD [address] [place] [address] 10/30/2025 1:00 PM EST Clinical Support [facility] MEDICINE [address] [place] [address] Janae Walden RN 11/02/2025 11:15 AM EST Office Visit [facility] MEDICINE [address] [place] [address] Brittany Saldana MD [address] [place] [address] documented as of this encounter Goals Goal [...] documented as of this encounter Care Teams Trademark Attorney Relationship Specialty Start Date End Date Brittany Saldana MD [address] [place] [address] PCP - General Family Medicine 05/08/20 Darrin Hernandez FNP [address] [place] [address] Nurse Practitioner Family Medicine 10/19/23 documented as of this encounter
--- OUTSIDE RECORDS SUMMARY | 2025-08-24 10:25 | XMS_ITS | Encounter Summary ---
Author Organization [employer] Address [address] [place] [address] [place] [address] Care Team Providers Care Shipping/Receiving Manager Name Role Phone Brittany Saldana MD Primary Care Provider + Darrin Hernandez Unavailable Unavailable Reason for Visit * Reason Onset Date Comments Med Refill 08/11/2024 Encounter Details Date Type Department Care Team (Late st Contact Info) Description 08/11/2024 Refill [facility] MEDICINE [address] [place] [address] Brittany Saldana MD 230 [place] [address] Mild intermittent asthma without complication Social History [...] the past 12 months, has t he [employer], gas, oil or water company threatened to [...] Description 09/13/2025 1:00 PM EDT Office Visit [facility] OPTOMETRY [address] [place] [address] Renetta Mitchell OD [address] [place] [address] 10/30/2025 1:00 PM EST Clinical Support [facility] MEDICINE [address] [place] [address] Janae Walden RN 11/02/2025 11:15 AM EST Office Visit [facility] MEDICINE [address] [place] [address] Brittany Saldana MD [address] [place] [address] documented as of this encounter Goals Goal [...] documented as of this encounter Care Teams Shipping/Receiving Manager Relationship Specialty Start Date End Date Brittany Saldana MD [address] [place] [address] PCP - General Family Medicine 05/08/20 Darrin Hernandez FNP [address] [place] [address] Nurse Practitioner Family Medicine 10/19/23 documented as of this encounter
--- OUTSIDE RECORDS SUMMARY | 2025-08-24 10:25 | XMS_ITS | Encounter Summary ---
Author Organization [employer] Address [address] [place] [address] [place] [address] Care Team Providers Care Rickshaw Driver Name Role Phone Brittany Saldana MD Primary Care Provider + Darrin Hernandez Unavailable Unavailable Reason for Visit * Reason Onset Date Comments Med Refill 08/03/2024 Encounter Details Date Type Department Care Team (Late st Contact Info) Description 08/03/2024 Refill [facility] MEDICINE [address] [place] [address] [facility] [address] [place] [address] Mild intermittent asthma without complication Social History [...] the past 12 months, has t he [employer], gas, oil or water company threatened to [...] Description 09/13/2025 1:00 PM EDT Office Visit [facility] OPTOMETRY [address] [place] [address] Renetta Mitchell OD [address] [place] [address] 10/30/2025 1:00 PM EST Clinical Support [facility] MEDICINE [address] [place] [address] Janae Walden RN 11/02/2025 11:15 AM EST Office Visit [facility] MEDICINE [address] [place] [address] Brittany Saldana MD [address] [place] [address] documented as of this encounter Goals Goal [...] documented as of this encounter Care Teams Rickshaw Driver Relationship Specialty Start Date End Date Brittany Saldana MD [address] [place] [address] PCP - General Family Medicine 05/08/20 Darrin Hernandez FNP [address] [place] [address] Nurse Practitioner Family Medicine 10/19/23 documented as of this encounter
--- OUTSIDE RECORDS SUMMARY | 2025-08-24 10:25 | XMS_ITS | Encounter Summary ---
Author Organization [facility] Address [address] [place] [address] Care Team Providers Care Commercial Real Estate Paralegal Name Role Phone Brittany Saldana MD Primary Care Provider + Darrin Hernandez Unavailable Unavailable Reason for Visit * Reason Onset Date Comments Med Refill 06/15/2024 Encounter Details Date Type Department Care Team (Late st Contact Info) Description 06/15/2024 Refill [facility] [address] [place] [address] Brittany Saldana MD [address] [place] [address] Acute insomnia Social History Tobacco Use Types [...] the past 12 months, has t he [employer], gas, oil or water company threatened to [...] Description 09/13/2025 1:00 PM EDT Office Visit [facility] [address] [place] [address] Renetta Mitchell OD [address] [place] [address] 10/30/2025 1:00 PM EST Clinical Support [facility] [address] [place] [address] Janae Walden RN 11/02/2025 11:15 AM EST Office Visit [facility] [address] [place] [address] Brittany Saldana MD [address] [place] [address] documented as of this encounter Goals Goal Patient Goal Type Associated Problems Recent Progress Patient-Stated? Author Blood Pressure < 140/90 Blood Pressure 140/60(2024 11:18 AM EDT) No Venkatesh Skinner, CarlosD Hemoglobin A1c < 7 Result Component 5(04/06/2025 9:03 AM EDT) Venkatesh Mccann, CarlosD documented as of this encounter Visit Diagnoses Diagnosis Acute insomnia documented in this encounter Additional Health Concerns Assessment Noted Time PHQ-9 Depression Total Score: 4 03/06/20 24 2:22 PM EDT documented as of this encounter Care Teams Commercial Real Estate Paralegal Relationship Specialty Start Date End Date Brittany Saldana MD [address] [place] [address] PCP - General Family Medicine 05/08/20 Darrin Hernandez FNP [address] [place] [address] Nurse Practitioner Family Medicine 10/19/23 documented as of this encounter
--- OUTSIDE RECORDS SUMMARY | 2025-08-24 10:25 | XMS_ITS | Encounter Summary ---
Author Organization [employer] Address [address] [place] [address] Care Team Providers Care Supervisor Warping Department Name Role Phone Brittany Saldana MD Primary Care Provider + Darrin Hernandez Unavailable Unavailable Reason for Visit * Reason Onset Date Comments r/s appt 12/24/2022 Encounter Details Date Type Department Care Team (Late st Contact Info) Description 12/24/2022 Telephone [facility] [address] [place] [address] Brittany Saldana MD [address] [place] [address] r/s appt Social History Tobacco Use Types [...] states his ride was not there ontime. Logistics Specialist tried booking but December Calender was full. Please contact pt at [phone] documented in this encounter Plan of Treatment Upcoming Encounters Date Type Department Care Team (Late st Contact Info) Description 09/13/2025 1:00 PM EDT Office Visit [facility] [address] [place] [address] Renetta Mitchell, OD [address] [place] [address] 10/30/2025 1:00 PM EST Clinical Support [facility] [address] [place] [address] Janae Walden, CORTES 11/02/2025 11:15 AM EST Office Visit [facility] [address] [place] [address] Brittany Saldana MD [address] [place] [address] documented as of this encounter Visit Diagnoses Not on filedocumented in this encounter Additional Health Concerns Assessment Noted Time PHQ-9 Depression Total Score: 9 11/05/20 22 9:37 AM EST documented as of this encounter Care Teams Supervisor Warping Department Relationship Specialty Start Date End Date Brittany Saldana MD [address] [place] [address] PCP - General Family Medicine 05/08/20 Darrin Hernandez FNP [address] [place] [address] Nurse Practitioner Family Medicine 10/19/23 documented as of this encounter
--- OUTSIDE RECORDS SUMMARY | 2025-08-24 10:25 | XMS_ITS | Encounter Summary ---
Author Organization [employer] Address [address] [place] [address] Care Team Providers Care Chopper Gun Operator Name Role Phone Brittany Saldana MD Primary Care Provider + Darrin Hernandez Unavailable Unavailable Reason for Visit * Reason Onset Date Comments Durable Medical Equipment 01/05/2023 Encounter Details Date Type Department Care Team (Late st Contact Info) Description 01/05/2023 Telephone [facility] [address] [place] [address] Brittany Saldana MD [address] [place] [address] Durable Medical Equipment Social History Tobacco Use [...] If any questions please contact pt at [phone] documented in this encounter Plan of Treatment Upcoming Encounters Date Type Department Care Team (Late st Contact Info) Description 09/13/2025 1:00 PM EDT Office Visit [facility] [address] [place] [address] Renetta Mitchell, OD [address] [place] [address] 10/30/2025 1:00 PM EST Clinical Support [facility] [address] [place] [address] Janae Walden RN 11/02/2025 11:15 AM EST Office Visit [facility] [address] [place] [address] Brittany Saldana MD [address] [place] [address] documented as of this encounter Visit Diagnoses Not on filedocumented in this encounter Additional Health Concerns Assessment Noted Time PHQ-9 Depression Total Score: 4 12/31/19 23 10:56 AM EST documented as of this encounter Care Teams Chopper Gun Operator Relationship Specialty Start Date End Date Brittany Saldana MD [address] [place] [address] PCP - General Family Medicine 05/08/20 Darrin Hernandez FNP 230 [place] [address] Nurse Practitioner Family Medicine 10/19/23 documented as of this encounter
--- OUTSIDE RECORDS SUMMARY | 2025-08-24 10:25 | XMS_ITS | Encounter Summary ---
Author Organization [employer] Address [address] [place] [address] Care Team Providers Care Administration Manager Name Role Phone Brittany Saldana MD Primary Care Provider + Darrin Hernandez Unavailable Unavailable Reason for Visit * Reason Onset Date Comments Durable Medical Equipment 02/17/2023 Encounter Details Date Type Department Care Team (Late st Contact Info) Description 02/17/2023 Telephone [facility] 230 [place] [address] Brittany Saldana MD 230 [place] [address] Durable Medical Equipment Social History Tobacco Use [...] . Any questions please contact pt at [phone]. documented in this encounter Plan of Treatment Upcoming Encounters Date Type Department Care Team (Late st Contact Info) Description 09/13/2025 1:00 PM EDT Office Visit [facility] [address] [place] [address] Renetta Mitchell OD [address] [place] [address] 10/30/2025 1:00 PM EST Clinical Support [facility] [address] [place] [address] Janae Walden, CORTES 11/02/2025 11:15 AM EST Office Visit [facility] [address] [place] [address] Brittany Saldana MD [address] [place] [address] documented as of this encounter Visit Diagnoses Not on filedocumented in this encounter Additional Health Concerns Assessment Noted Time PHQ-9 Depression Total Score: 10 02/11/ 023 10:47 AM EDT documented as of this encounter Care Teams Administration Manager Relationship Specialty Start Date End Date Brittany Saldana MD [address] [place] [address] PCP - General Family Medicine 05/08/20 Darrin Hernandez FNP [address] [place] [address] Nurse Practitioner Family Medicine 10/19/23 documented as of this encounter
--- OUTSIDE RECORDS SUMMARY | 2025-08-24 10:25 | XMS_ITS | Encounter Summary ---
Author Organization [employer] Address [address] [facility] 7 [place] [address] Care Team Providers Care Art Museum Aide Name Role Phone Brittany Saldana MD Primary Care Provider + Darrin Hernandez Unavailable Unavailable Encounter Details Date Type Department Care Team (Late st Contact Info) Description 10/10/2024 Abstract [facility] 230 [place] [address] Brittany Saldana MD [address] [place] [address] Social History Tobacco Use Types Packs/Day Years [...] 1:00 PM EDT Office Visit [facility] 267 [place] [address] Renetta Mitchell, GLEN [address] [place] [address] 10/30/2025 1:00 PM EST Clinical Support [facility] [address] [place] [address] Janae Walden RN 11/02/2025 11:15 AM EST Office Visit [facility] [address] [place] [address] Brittany Saldana MD [address] [place] [address] documented as of this encounter Goals Goal [...] documented as of this encounter Care Teams Art Museum Aide Relationship Specialty Start Date End Date Brittany Saldana MD [address] [place] [address] PCP - General Family Medicine 05/08/20 Darrin Hernandez FNP [address] [place] [address] Nurse Practitioner Family Medicine 10/19/23 documented as of this encounter
--- OUTSIDE RECORDS SUMMARY | 2025-08-24 10:25 | XMS_ITS | Encounter Summary ---
Author Organization [employer] Address [address] [place] [address] [place] [address] Care Team Providers Care Tearoom Hostess Name Role Phone Brittany Saldana MD Primary Care Provider + Darrin Hernandez Unavailable Unavailable Reason for Visit * Reason Comments Med Refill Encounter Details Date Type Department Care Team (Late st Contact Info) Description 07/25/2024 Refill [facility] 230 [place] [address] Brandon Caballero MD 230 [place] [address] Type 2 diabetes mellitus without complication, without long-term current use of insulin ([facility]) Social History Tobacco Use Types Packs/Day [...] Description 09/13/2025 1:00 PM EDT Office Visit [facility] [address] [place] [address] Renetta Mitchell OD [address] [place] [address] 10/30/2025 1:00 PM EST Clinical Support [facility] [address] [place] [address] Janae Walden RN 11/02/2025 11:15 AM EST Office Visit [facility] [address] [place] [address] Brittany Saldana MD [address] [place] [address] documented as of this encounter Goals Goal [...] documented as of this encounter Care Teams Tearoom Hostess Relationship Specialty Start Date End Date Brittany Saldana MD [address] [place] [address] PCP - General Family Medicine 05/08/20 Darrin Hernandez FNP [address] [place] [address] Nurse Practitioner Family Medicine 10/19/23 documented as of this encounter
--- OUTSIDE RECORDS SUMMARY | 2025-08-24 10:25 | XMS_ITS | Encounter Summary ---
Author Organization [employer] Address [address] [place] [address] [place] [address] Care Team Providers Care Respiratory Medicine Physician Name Role Phone Brittany Saldana MD Primary Care Provider + Darrin Hernandez Unavailable Unavailable Reason for Visit * Reason Comments Med Refill Encounter Details Date Type Department Care Team (Late st Contact Info) Description 06/03/2023 Refill [facility] [address] [place] [address] Darrin Hernandez FNP Depression, unspecified depression type [...] 09/13/2025 1:00 PM EDT Office Visit [facility] [address] [place] [address] Renetta Mitchell, OD [address] [place] [address] 10/30/2025 1:00 PM EST Clinical Support [facility] 230 [place] [address] Janae Walden, CORTES 11/02/2025 11:15 AM EST Office Visit [address] [address] Brittany Saldana MD [address] [place] [address] documented as of this encounter Visit Diagnoses Diagnosis Depression, unspecified depression type documented in this encounter Additional Health Concerns Assessment Noted Time PHQ-9 Depression Total Score: 11 05/25/ 023 10:47 AM EDT documented as of this encounter Care Teams Respiratory Medicine Physician Relationship Specialty Start Date End Date Brittany Saldana MD [address] [place] [address] PCP - General Family Medicine 05/08/20 Darrin Hernandez FNP [address] [place] [address] Nurse Practitioner Family Medicine 10/19/23 documented as of this encounter
--- OUTSIDE RECORDS SUMMARY | 2025-08-24 10:25 | XMS_ITS | Clinical Summary ---
Author Organization [facility] Address [address] [place] [address] Care Team Providers Care Mobile Home Installer Name Role Phone Selvin Payan MD Primary Care Provider [phone] Allergies Active Allergy Reactions Criticality Noted Date [...] age to complete this topic Care Teams Mobile Home Installer Relationship Specialty Start Date End Date Selvin Payan MD [address] [place] [address] PCP - General Internal Medicine 03/08/18
--- OUTSIDE RECORDS SUMMARY | 2025-08-24 10:25 | XMS_ITS | Encounter Summary ---
Author Organization [employer] Address [address] [place] [address] [place] [address] Care Team Providers Care Machining Technician Name Role Phone Brittany Saldana MD Primary Care Provider + Darrin Hernandez Unavailable Unavailable Reason for Visit * Reason Onset Date Comments Med Refill 04/16/2024 Encounter Details Date Type Department Care Team (Late st Contact Info) Description 04/16/2024 Refill [facility] [address] [place] [address] Darrin Hernandez FNP PTSD (post-traumatic stress disorder) [...] 09/13/2025 1:00 PM EDT Office Visit [facility] [address] [place] [address] Renetta Mitchell, OD [address] [place] [address] 10/30/2025 1:00 PM EST Clinical Support [facility] [address] [place] [address] Janae Walden RN 11/02/2025 11:15 AM EST Office Visit [facility] [address] [place] [address] Brittany Saldana MD [address] [place] [address] documented as of this encounter Goals Goal [...] documented as of this encounter Care Teams Machining Technician Relationship Specialty Start Date End Date Brittany Saldana MD [address] [place] [address] PCP - General Family Medicine 05/08/20 Darrin Hernandez FNP [address] [place] [address] Nurse Practitioner Family Medicine 10/19/23 documented as of this encounter
--- OUTSIDE RECORDS SUMMARY | 2025-08-24 10:25 | XMS_ITS | Encounter Summary ---
Author Organization [employer] Address [address] [place] [address] Care Team Providers Care Electron Gun Inspector Name Role Phone Brittany Saldana MD Primary Care Provider + Darrin Hernandez Unavailable Unavailable Reason for Visit * Reason Onset Date Comments Med Refill 08/03/2024 Encounter Details Date Type Department Care Team (Late st Contact Info) Description 08/03/[address] [facility] [address] [place] [address] [place] Caballero MD [address] [place] [address] Type 2 diabetes mellitus without complication, without long-term current use of insulin ([facility]) Social History Tobacco Use Types [...] Office Visit [facility] [address] [place] [address] Renetta Mitchell OD [address] [place] [address] 10/30/2025 1:00 PM EST Clinical Support [facility] [address] [place] [address] Janae Walden, CORTES 11/02/2025 11:15 AM EST Office Visit [facility] [address] [place] [address] Brittany Saldana MD [address] [place] [address] documented as of this encounter Goals Goal Patient Goal Type Associated Problems Recent Progress Patient-Stated? Author Blood Pressure < 140/90 Blood Pressure 140/60(2024 11:18 AM EDT) No Skinner, Venkatesh, PharmD Hemoglobin A1c < 7 Result Component 5(04/06/2025 9:03 AM EDT) No Venkatesh Skinner PharmD documented as of this encounter Visit Diagnoses Diagnosis Type 2 diabetes mellitus without complication, without long-term current use of insulin (HCC) documented in this encounter Additional Health Concerns Assessment Noted Time PHQ-9 Depression Total Score: 4 03/06/20 24 2:22 PM EDT documented as of this encounter Care Teams Electron Gun Inspector Relationship Specialty Start Date End Date Brittany Saldana MD [address] [place] [address] PCP - General Family Medicine 05/08/20 Darrin Hernandez FNP [address] [place] [address] Nurse Practitioner Family Medicine 10/19/23 documented as of this encounter
--- OUTSIDE RECORDS SUMMARY | 2025-08-24 10:25 | XMS_ITS | Encounter Summary ---
Author Organization [employer] Address [address] [place] [address] Care Team Providers Care Hand Drawer In Name Role Phone Brittany Saldana MD Primary Care Provider + Darrin Hernandez Unavailable Unavailable Reason for Visit * Reason Onset Date Comments Med Refill 06/19/2024 Encounter Details Date Type Department Care Team (Late st Contact Info) Description 06/19/2024 Refill [facility] [address] [place] [address] Brittany Saldana MD [address] [place] [address] Alcoholism (CMS/HCC); Essential (primary) hypertension Social History [...] Description 09/13/2025 1:00 PM EDT Office Visit [facility] [address] [place] [address] Renetta Mitchell, GLEN [address] [place] [address] 10/30/2025 1:00 PM EST Clinical Support [facility] [address] [place] [address] Janae Walden, CORTES 11/02/2025 11:15 AM EST Office Visit [facility] [address] [place] [address] Brittany Saldana MD [address] [place] [address] documented as of this encounter Goals Goal [...] as of this encounter Care Teams Hand Drawer In Relationship Specialty Start Date End Date Brittany Saldana MD [address] [place] [address] PCP - General Family Medicine 05/08/20 Darrin Hernandez FNP [address] [place] [address] Nurse Practitioner Family Medicine 10/19/23 documented as of this encounter
--- OUTSIDE RECORDS SUMMARY | 2025-08-24 10:25 | XMS_ITS | Encounter Summary ---
Author Organization [employer] Address [address] [place] [address] 7 [place] [address] Care Team Providers Care Carbon Sequestration Plant Engineer Name Role Phone Brittany Saldana MD Primary Care Provider + Darrin Hernandez Unavailable Unavailable Reason for Visit * Reason Comments [facility] Supp[facility] Encounter Details Date Type Department Care Team (Late st Contact Info) Description 08/23/2025 Patient Outreach [facility] [address] [place] [address] Corbin Aguilar Recovery Supports Social History Tobacco [...] encounter Progress Notes * Corbin Aguilar - 08/23/2025 11:59 PM EDT I met with Dane ruff. Setting: in person at [facility] Recovery Wellness Goals worked on: Physical Health/Mental Health Social Stability Spiritual Wellness Action taken/next steps: Attended recovery support group Contingency management Additional comments: Corbin Aguilar documented in this encounter Plan of Treatment Upcoming Encounters Date Type Department Care Team (Late st Contact Info) Description 09/13/2025 1:00 PM EDT Office Visit [facility] [address] [place] [address] Renetta Mitchell OD [address] [place] [address] 10/30/2025 1:00 PM EST Clinical Support [facility] [address] [place] [address] Janae Walden RN 11/02/2025 11:15 AM EST Office Visit [facility] [address] [place] [address] Brittany Saldana MD [address] [place] [address] documented as of this encounter Goals Goal [...] documented as of this encounter Care Teams Carbon Sequestration Plant Engineer Relationship Specialty Start Date End Date Brittany Saldana MD [address] [place] [address] PCP - General Family Medicine 05/08/20 Darrin Hernandez FNP [address] [place] [address] Nurse Practitioner Family Medicine 10/19/23 documented as of this encounter
--- OUTSIDE RECORDS SUMMARY | 2025-08-24 10:25 | XMS_ITS | Patient Health Record ---
Author Organization [employer] Address [address] [facility] [address] [place] [address] Support Name Relationship Address Phone Dane Calles Guarantor Unknown [phone] Allergies Allergen (clinical drug ingredient) Drug/Non Drug [...] Disorder due to type 2 diabetes mellitus (319644105) Type 2 diabetes mellitus with unspecified complications (E11.8) Active confirmed Problem Morbid obesity (disorder) (156932318) Morbid (severe) obesity due to excess calories (E66.01) Active confirmed Problem Mixed hyperlipidemia (265342269) Mixed hyperlipidemia (E78.2) Active confirmed Problem Alcohol dependence (38779627) Alcohol dependence, uncomplicated (F10.20) Active confirmed Problem Mild recurrent major depression (67963498) Major depressive disorder, recurrent, mild (F33.0) Active confirmed Problem 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, intractable, 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) Active confirmed Problem 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, intractable, without status epilepticus (G40.219) Active confirmed Problem Obstructive sleep apnea syndrome (disorder) (86641612) Obstructive sleep apnea (adult) (pediatric) (G47.33) Active confirmed Problem Essential hypertension (22453249) Essential (primary) hypertension (I10) Active confirmed Problem Gastro-esophageal reflux disease without esophagitis (725764425) Gastro-esophageal reflux disease without esophagitis (K21.9) Active confirmed Problem Neurofibromatosis (00779916) Neurofibromatosis , 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) Active confirmed Problem Somnolence (50665256) Somnolence (R40.0) Active confirmed Problem Attention deficit hyperactivity disorder, predominantly inattentive type (disorder) (89685980) Attention and concentration deficit (R41.840) Active confirmed Problem Body mass index 40+ - severely obese (932638130) Body mass index (BMI) 40.0-44.9, adult (Z68.41) Active confirmed Problem Lower urinary tract symptoms due to benign prostatic hypertrophy (95244269043234) Benign prostatic hyperplasia with lower urinary tract symptoms (N40.1) Active confirmed Problem Morbid obesity (436474785) Morbid obesity (E66.01) Active confirmed Plan Of Treatment No Information Medical (General) History Medical History History ICD Code hypertension, benign acid reflux BPH see Urology Attention deficit disorder Neurofibromatosis complex partial seizure disorder Surgical History Surgery Date(Month/Year) Umblical hernia repair 2004 Tonsellectomy Cyst in throat removed
--- OUTSIDE RECORDS SUMMARY | 2025-08-24 10:26 | XMS_ITS | Encounter Summary ---
Author Organization [employer] Address [address] [place] [address] Care Team Providers Care Assisted Living Nursing Director Name Role Phone Brittany Saldana MD Primary Care Provider + Darrin Hernandez Unavailable Unavailable Reason for Visit * Reason Onset Date Comments Med Refill 01/09/2025 Encounter Details Date Type Department Care Team (Late st Contact Info) Description 01/09/2025 Refill [facility] [address] [place] [address] Brittany Saldana MD [address] [place] [address] Social History Tobacco Use Types Packs/Day Years [...] Visit [facility] [address] [place] [address] Renetta Mitchell OD [address] [place] [address] 10/30/2025 1:00 PM EST Clinical Support [facility] [address] [place] [address] Janae Walden RN 11/02/2025 11:15 AM EST Office Visit [facility] [address] [place] [address] Brittany Saldana MD [address] [place] [address] documented as of this encounter Goals Goal [...] documented as of this encounter Care Teams Assisted Living Nursing Director Relationship Specialty Start Date End Date Brittany Saldana MD [address] [place] [address] PCP - General Family Medicine 05/08/20 Darrin Hernandez FNP [address] [place] [address] Nurse Practitioner Family Medicine 10/19/23 documented as of this encounter
--- OUTSIDE RECORDS SUMMARY | 2025-08-24 10:26 | XMS_ITS | Encounter Summary ---
Author Organization [employer] Address [address] [place] [id number] Care Team Providers Care Professional Nursing Assistant Name Role Phone Brittany Saldana MD Primary Care Provider + Darrin Hernandez Unavailable Unavailable Reason for Visit * Reason Comments Med Refill Encounter Details Date Type Department Care Team (Late st Contact Info) Description 03/15/2023 Refill [facility] [address] [place] [address] Brittany Saldana MD [address] [place] [address] Primary hypertension Social History Tobacco Use Types [...] Description 09/13/2025 1:00 PM EDT Office Visit [facility] [address] [place] [address] Renetta Mitchell, OD [address] [place] [address] 10/30/2025 1:00 PM EST Clinical Support [facility] [address] [place] [address] Janae Walden, CORTES 11/02/2025 11:15 AM EST Office Visit [facility] [address] [place] [address] Brittany Saldana MD [address] [place] [phone] documented as of this encounter Visit Diagnoses Diagnosis Primary hypertension Unspecified essential hypertension documented in this encounter Additional Health Concerns Assessment Noted Time PHQ-9 Depression Total Score: 10 023 10:47 AM EDT documented as of this encounter Care Teams Professional Nursing Assistant Relationship Specialty Start Date End Date Brittany Saldana MD [address] [place] [id number] PCP - General Family Medicine 05/08/20 Darrin Hernandez FNP [address] [place] [id number] Nurse Practitioner Family Medicine 10/19/23 documented as of this encounter
--- OUTSIDE RECORDS SUMMARY | 2025-08-24 10:26 | XMS_ITS | Encounter Summary ---
Author Organization [employer] Address [address] [place] [id number] Care Team Providers Care Graduate Teacher Education Name Role Phone Brittany Saldana MD Primary Care Provider + Darrin Hernandez Unavailable Unavailable Reason for Visit * Reason Onset Date Comments Referral 09/24/2023 Encounter Details Date Type Department Care Team (Late st Contact Info) Description 09/24/2023 Telephone [facility] [address] [place] [address] Brittany Saldana MD [address] [place] [address] Referral Social History Tobacco Use Types Packs/Day [...] 9:02 AM EST Tc from sri with [facility] requesting a new order for Occupational therapy for weakness in hands. States they received the referral for Occupational therapy but dx says hip pain. Please fax to [phone] Any questions, please contact sri at [phone] documented in this encounter Plan of Treatment Upcoming Encounters Date Type Department Care Team (Late st Contact Info) Description 09/13/2025 1:00 PM EDT Office Visit [facility] OPTOMETRY [address] [place] [address] Renetta Mitchell, GLEN [address] [place] [address] 10/30/2025 1:00 PM EST Clinical Support [facility] [address] [place] [phone] Janae Walden, CORTES 11/02/2025 11:15 AM EST Office Visit [facility] [address] [place] [address] Brittany Saldana MD [address] [place] [address] documented as of this encounter Visit Diagnoses Not on filedocumented in this encounter Additional Health Concerns Assessment Noted Time PHQ-9 Depression Total Score: 4 09/06/20 23 11:30 AM EDT documented as of this encounter Care Teams Graduate Teacher Education Relationship Specialty Start Date End Date Brittany Saldana MD [address] [place] [id number] PCP - General Family Medicine 05/08/20 Darrin Hernandez FNP [address] [place] [id number] Nurse Practitioner Family Medicine 10/19/23 documented as of this encounter
--- OUTSIDE RECORDS SUMMARY | 2025-08-24 10:26 | XMS_ITS | Clinical Summary ---
Author Organization [employer] Address [address] [place] [address] 7 [place] [address] Care Team Providers Care Director Business Management Name Role Phone Brittany Saldana MD Primary [...] TAKE 1 TABLET BY MOUTH ONCE DAILY 022 Active Lancets 28G miscIndications :Controlled type 2 diabetes mellitus without complication, without long-term current use of insulin ([facility]) Use 1 lancet to monitor blood glucose twice daily 100 each 11 023 Active meclizine (Antivert) 25 MG tabletIndicatio ns:Vertigo TAKE 1 TABLET BY MOUTH THREE TIMES DAILY IN THE MORNING, AT NOON, AND AT BEDTIME NEEDED FOR DIZZINESS 90 tablet 024 Active glucose blood (OneTouch Ultra) test stripIndication s:Type 2 diabetes mellitus without complication, without long-term current use of insulin ([facility]) TEST BLOOD SUGAR TWICE DAILY 100 strip 11 024 Active Multiple Vitamins-Minera ls (CertaVite/Anti oxidants) tabletIndicatio ns:Essential (primary) hypertension Take 1 tablet by mouth in the morning. 30 tablet 11 024 Active atorvastatin (Lipitor) 20 MG tablet TAKE ONE TABLET BY MOUTH AT BEDTIME (FOR CHOLESTEROL) 30 tablet Active traZODone (Desyrel) 100 MG tabletIndicatio ns:Depression, unspecified depression type TAKE TWO TABLETS BY MOUTH AT BEDTIME 60 tablet Active albuterol 108 (90 Base) MCG/ACT inhalerIndicati ons:Mild intermittent asthma without complication INHALE 2 PUFFS EVERY 4 TO 6 HOURS NEEDED 8.5 g Active cyanocobalamin (Vitamin B-12) 1000 MCG tablet TAKE ONE TABLET BY MOUTH EVERY MORNING 30 tablet Active thiamine (Vitamin B-1) 100 MG tablet TAKE ONE TABLET BY MOUTH EVERY MORNING 30 tablet Active buPROPion XL (Wellbutrin XL) 300 MG 24 hr tablet Take 1 tablet (300 mg) by mouth in the morning. 90 tablet Active ARIPiprazole (Abilify) 2 MG tablet Take 1 tablet (2 mg) by mouth Once per day. 90 tablet 3 025 Active olopatadine (Pataday) 0.1 % ophthalmic solution Administer 1 drop into both eyes 2 times daily. 5 mL 1 Active docusate sodium (Colace) 100 MG capsuleIndicati ons:Constipatio n, unspecified constipation type TAKE 1 CAPSULE BY MOUTH TWICE DAILY NEEDED 180 capsule 2 Active fluticasone (Flonase) 50 MCG/ACT nasal sprayIndication s:Chronic rhinitis USE 1-2 SPRAYS EACH NOSTRIL ONCE DAILY NEEDED 16 g Active melatonin 5 MG tabletIndicatio ns:Acute insomnia TAKE ONE TABLET BY MOUTH AT BEDTIME 30 tablet Active polyethylene glycol, PEG, 3350 (MiraLax) 17 GM/SCOOP powder Take 17 g by mouth if needed each day (constipation >1d). 527 g 025 2025 Active ferrous sulfate 325 (65 Fe) MG EC tablet TAKE ONE TABLET BY MOUTH ONCE DAILY WITH BREAKFAST, DO NOT CRUSH OR CHEW. 30 tablet 2 Active gabapentin (Neurontin) 400 MG capsuleIndicati ons:Type 2 diabetes mellitus without complication, without long-term current use of insulin (HCC) TAKE ONE CAPSULE BY MOUTH THREE TIMES DAILY 90 capsule 2 Active spironolactone (Aldactone) 25 MG tablet Take 25 mg by mouth Once per day. Rx'd by cardiology Active hydrALAZINE (Apresoline) 25 MG tablet Take 25 mg by mouth in the morning and 25 mg at noon and 25 mg in the evening. Rx'd by special events planner . Active felodipine ER (Plendil) 10 MG 24 hr tablet Take 10 mg by mouth Once per day. Do not crush, chew, or split. Rx'd by cardiology Active lisinopril 30 MG tablet Take 30 mg by mouth Once per day. Cardiology increased on 08/14/25 Active methylphenidate ER (Concerta) 54 MG CR tablet TAKE 1 TABLET BY MOUTH EVERY DAY IN THE MORNING DO NOT BREAK, CRUSH, DISSOLVE OR CHEW 28 tablet Active cloNIDine (Catapres) 0.2 MG tabletIndicatio ns:PTSD (post-traumatic stress disorder) TAKE 1 TABLET BY MOUTH AT BEDTIME 90 tablet 3 Active cloNIDine (Catapres) 0.1 MG tabletIndicatio ns:PTSD (post-traumatic stress disorder) TAKE 1 TABLET BY MOUTH AT BEDTIME 90 tablet 3 025 2024 Discontinued(R eorder (will not trigger notification to Pharmacy)) lisinopril 10 MG tabletIndicatio ns:Essential (primary) hypertension Take 1.5 tablets (15 mg) by mouth Once per day. 45 tablet 11 025 2024 Discontinued(D ose adjustment) methylphenidate ER (Concerta) 36 MG CR tablet TAKE 1 TABLET BY MOUTH EVERY DAY IN THE MORNING, DO NOT BREAK, CRUSH, DISSOLVE OR CHEW 30 tablet 025 2024 Discontinued(R eorder (will not trigger notification to Pharmacy)) Active Problems Problem Noted Date Diagnosed Date PTSD (post-traumatic stress disorder) 08/22/2025 Assessment & Plan (08/22/2025 3:39 PM EDT): Increase clonidine up to 0.3 mg nightly Continue trazodone + Wellbutrin and management of ADHD. Abnormal thyroid blood test 04/24/2025 Cough with [...] surgeon Follow-up with me in 1 month Lumbar radiculopathy, chronic 12/07/2024 Assessment & Plan [...] AM EDT): - obtain holter monitor from [facility] ordered by weight management program - will [...] and fu with . Order TSH/testosterone levels, research psychologist input appreciated. Iliopsoas bursitis of left hip [...] IZs -RSV pending not available today in [facility] pharmacy Advise to have it at [...] months Encounter for colorectal cancer screening 2022 Recurrent major depressive disorder, in partial remission 11/05/2022 Assessment & Plan (08/22/2025 2:33 PM EDT): >>ASSESSMENT AND PLAN FOR DEPRESSION WRITTEN ON 11/05/2022 10:49 AM BY CHARISMA GORDON Doing better. Continue current medications. He will explore options for day program(s)/activities. Gave patient name of cassi to help with sleep. F/U with me in 6-8 weeks. He agrees with the plan. Assessment & Plan (08/22/2025 2:33 PM EDT): >>ASSESSMENT AND PLAN FOR DEPRESSION WRITTEN ON 12/31/2022 12:25 PM BY CHARISMA GORDON Isolating, would like to be able to get out and do more. Will increase now to Bupropion SR 200 mg BID. Sleeping well. Continue Trazodone 100 mg 2 at bedtime. F/U with me in 6 weeks. He agrees with the plan. Assessment & Plan (08/22/2025 2:33 PM EDT): >>ASSESSMENT AND PLAN FOR DEPRESSION WRITTEN ON 02/11/2023 11:41 AM BY CHARISMA GORDON Still having problems with motivation. Discussed concept of Activation energy, and urged to force himself to get outside and move every day if possible, use his cane and/or request Rx for a walker. Continue meds as usual, and F/U with therapist and with me in 6 weeks. He agrees with the plan. Assessment & Plan (08/22/2025 2:33 PM EDT): >>ASSESSMENT AND PLAN FOR DEPRESSION WRITTEN ON 03/25/2023 11:36 AM BY CHARISMA GORDON Doing well. Continue current medications: Bupropion SR 200 mg BID, Clonidine 0.1 mg BID, Trazodone 100 mg 2 at bedtime, Melatonin 5 mg at bedtime. F/U with therapist and with me in 2 months. He agrees with the plan. Assessment & Plan (08/22/2025 2:33 PM EDT): >>ASSESSMENT AND PLAN FOR DEPRESSION WRITTEN ON 04/21/2023 2:41 PM BY LOIS SANDOVAL Assessment: Assessment and Plan: Narendra was engaged [...] motivation will serve as treatment engagement. PLAN: Follow up with [facility]: Recommended for follow-up: during AUD appts. Patient goal is learn to manage sxs and improve his mental health. Behavioral Recommendations Ind. Therapy Self-development [facility] support as needed. Assessment & Plan (08/22/2025 2:33 PM EDT): >>ASSESSMENT AND PLAN FOR DEPRESSION WRITTEN ON 05/20/2023 10:30 AM BY LOIS SANDOVAL Assessment and Plan: Narendra was engaged with active reflective listening and open- ended questions. Assessed symptoms, risks, and social supports with direct questions. Discussed current symptoms intensity and frequency. Emotions were normalized and validated. He identified walks as coping mechanisms and reported has been using relaxation and depression coping skills.. Discussed OP therapy and he told he he was not contacted yet, per commercial loan specialist, [employer] contact him on 05/11/23 at 9:47 am, but he didn't responded, vm was left. I provide him with [employer] information for him to follow up, he agreed. Provided education around integrated medicine and the options of follow up BE's as needed. Provided contact information should questions or concerns arise. Plan: Narendra will engage in effective coping mechanisms provided at least 1 per day for 6 months. He will be Contacting [employer] for him to engage in Ind. Therapy [...] motivation will serve as treatment engagement. PLAN: Follow up with [facility]: Recommended for follow-up: during AUD appts. Patient goal is learn to manage sxs and improve his mental health. Behavioral Recommendations Ind. Therapy Use of coping mechanisms provided at least 1 x/ day for 6 months [facility] support as needed. Assessment & Plan (08/22/2025 2:33 PM EDT): >>ASSESSMENT AND PLAN FOR DEPRESSION WRITTEN ON 05/25/2023 11:36 AM BY CHARISMA GORDON Not doing as well, anhedonia, low motivation. [...] agrees with the plan. Assessment & Plan (08/22/2025 2:33 PM EDT): >>ASSESSMENT AND PLAN FOR DEPRESSION WRITTEN ON 07/06/2023 3:09 PM BY CHARISMA GORDON Doing well. Continue current regimen: Bupropion XL 300 mg in the morning, Abilify 2 mg once daily, Clonidine 0.1 mg at bedtime, Trazodone 100 mg 2 at bedtime, Melatonin 5 mg at bedtime. F/U with therapist and intake to day program. F/u with me in 2 months. He agrees with the plan. Assessment & Plan (08/22/2025 2:33 PM EDT): >>ASSESSMENT AND PLAN FOR DEPRESSION WRITTEN ON 09/06/2023 1:13 PM BY CHARISMA GORDON Doing well. Continue current regimen: Bupropion XL [...] agrees with the plan. Assessment & Plan (08/22/2025 2:33 PM EDT): >>ASSESSMENT AND PLAN FOR DEPRESSION WRITTEN ON 11/25/2023 10:53 AM BY CHARISMA GORDON Doing well. Continue current regimen: Bupropion XL [...] could be referred to. Assessment & Plan (08/22/2025 2:33 PM EDT): >>ASSESSMENT AND PLAN FOR DEPRESSION WRITTEN ON 12/27/2023 2:19 PM BY CHARISMA GORDON Doing well. Continue current regimen: Bupropion XL [...] agrees with the plan. Assessment & Plan (08/22/2025 2:33 PM EDT): >>ASSESSMENT AND PLAN FOR DEPRESSION WRITTEN ON 03/06/2024 3:23 PM BY CHARISMA GORDON Doing well. Continue current regimen: Bupropion XL 300 mg in the morning, Abilify 2 mg once daily, Clonidine 0.1 mg at bedtime, Trazodone 100 mg 2 at bedtime, Melatonin 5 mg at bedtime. F/U with therapist and day program. As this provider will be retiring, patient is now referred back to his PCP for continued medication management. For any issues or concerns contact [facility]. Continue with therapist as usual. I have wished him well. He agrees with the plan. Assessment & Plan (08/22/2025 2:33 PM EDT): >>ASSESSMENT AND PLAN FOR DEPRESSION WRITTEN ON 03/21/2024 12:02 PM BY VICTOR M SERNA - doing well on current medications, feels safe at home - continue on AUD program, will continue to prescribe Clonidine + Abilify + Trazodone + Bupropion + Gabapentin at bedtime. Assessment & Plan (12/07/2024 11:25 AM EST): Pt is doing well on Trazodone and he takes adderall for ADD. FU closely with psychotherapist, continue taking medications as above. Pt feels safe at home and is able to reach out for safety. Attention deficit hyperactiv ity disorder, predominantly inattentive type 10/22/2022 Assessment & Plan (08/22/2025 2:29 PM EDT): Currently with increased anxiety and decrease productivity and focus. I will increase methylphenidate to 54 mg/D and refer her to prescriber to optimize ADD/ADHD management. 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 Resolved status post bariatric surgery? Will obtain last sleep study from Dr. Mobley's office. Patient will continue on O2 supplementation overnight 1 Li NC Assessment & Plan (07/26/2024 11:31 AM EDT): [...] Essential (primary) hypertension 10/22/2022 Assessment & Plan (08/22/2025 12:40 PM EDT): Controlled. Compliant w/meds Continue lisinopril 30 mg, felodipine ER 10 mg, hydralazine 25 mg 3 times daily spironolactone 25 mg. Counseled re low salt diet/increase moderate physical activity. Check home BP BIW and prn CP/TOLEDO/MARQUEZ Non smoking patient. Assessment & Plan (06/19/2025 1:56 PM EDT): [...] Problem Noted Date Diagnosed Date Resolved Date Sudden right hearing loss 02/28/2025 Neck pain 05/02/2024 06/29/2024 Assessment & Plan [...] exercise, life style modifications, diet, referral to personnel specialist. Discussed re lower calorie intake, increase dietary fiber Pt insisted on wt reduction program, [facility] program given today Alcohol abuse 10/22/2022 08/22/2025 Assessment & Plan (09/22/2023 11:04 AM EST): [...] Continue with AUD program and other supports. Encounters * This document contains information received from the source organization and may not represent a complete record from that organization. Date Type Department Care Team Description 08/23/2025 Patient Outreach [facility] MEDICINE [address] [place] [phone] Corbin Aguilar Recovery Supports 08/22/2025 11:15 AM EDT Office Visit [facility] MEDICINE [address] [place] [phone] Brittany Saldana MD Attention deficit hyperactivity disorder, predominantly inattentive type (Primary Dx); Essential (primary) hypertension; PTSD (post-traumatic stress disorder); Obstructive sleep apnea syndrome; Encounter for vaccination; Encounter for immunization 08/22/2025 Travel 08/21/2025 Telephone [facility] MEDICINE [address] [place] [phone] Brittany Saldana MD chart prep 08/16/2025 Patient Outreach [facility] [address] [place] [address] [place] [address] Corbin Aguilar Recovery Supports 08/15/2025 10:00 AM EDT Office Visit [facility] [place] [address] Migue Stephens MD Alcohol use disorder (Primary Dx) 08/15/2025 Travel 08/14/2025 Patient Outreach [address] [phone] Ted Olvera Recovery Supports 08/08/2025 10:00 AM EDT Office Visit [address] [address] Migue Stephens MD Alcohol use disorder (Primary Dx); Essential (primary) hypertension 08/08/2025 Travel 08/07/2025 1:15 PM EDT Office Visit [address] [address] Brandon Caballero MD Alcohol use disorder, severe, in sustained remission (CMS/HCC) (Primary Dx) 08/07/2025 Patient Outreach [address] [address] Corbin Aguilar Recovery Supports 08/07/2025 Travel 08/07/2025 [facility] Health Information Management [address] [place] [phone] David Potter MD 08/01/2025 10:00 AM EDT Office Visit [address] [address] Migue Stephens MD Alcohol use disorder (Primary Dx) 08/01/2025 Travel 07/24/2025 Patient Outreach [address] [address] Ted Olvera Recovery Supports 07/23/2025 11:30 AM EDT Clinical Support [address] [address] Pippa Aldrich RN Essential (primary) hypertension 07/23/2025 Travel 07/20/2025 Refill [facility] MEDICINE [address] [place] [address] Brittany Saldana MD 07/18/2025 Refill [facility] [address] [place] [address] Brittany Saldana MD Type 2 diabetes mellitus without complication, without long-term current use of insulin (CMS/HCC) 07/16/2025 Travel 07/11/2025 10:00 AM EDT Clinical Support [facility] [place] [address] Janae Walden RN Alcohol use disorder, severe, in sustained remission (CMS/HCC) 07/11/2025 Travel 07/10/2025 Patient Outreach [facility] [place] [address] Corbin Aguilar Recovery Supports 07/10/2025 Patient Outreach [facility] [place] [address] Corbin Aguilar Recovery Supports 07/09/2025 Telephone [facility] [address] Brittany Saldana MD Care Coordination 06/29/2025 Telephone [facility] [address] Brittany Saldana MD 06/27/2025 10:00 AM EDT Office Visit [facility] [place] [address] Migue Stephens MD Alcohol use disorder, severe, in sustained remission (CMS/HCC) (Primary Dx) 06/27/2025 Travel 06/26/2025 Patient Outreach [facility] [place] [address] Ted Olvera Recovery Supports 06/20/2025 10:00 AM EDT Office Visit [facility] [place] [address] Migue Stephens MD Alcohol use disorder, severe, in sustained remission (CMS/HCC) (Primary Dx) 06/20/2025 Travel 06/19/2025 11:45 AM EDT Office Visit [facility] [place] [address] Brittany Saldana MD Essential (primary) hypertension (Primary Dx); Attention deficit hyperactivity disorder, predominantly inattentive type 06/19/2025 Travel 06/18/2025 Refill [facility] [address] [place] [address] [place], [place], DATABASE DESIGNER 06/18/2025 Refill [facility] MEDICINE [address] [place] [address] Brittany Saldana MD Chronic rhinitis; Acute insomnia 06/13/2025 10:00 AM EDT Office Visit [facility] MEDICINE [address] [place] [address] Migue Stephens MD Alcohol use disorder, severe, in sustained remission (CMS/HCC) (Primary Dx) 06/13/2025 Travel 06/12/2025 Patient Outreach [facility] MEDICINE [address] [place] [address] Brittany Saldana MD Pre-visit Planning (SDOH screening completed on 01/22/2025) 06/12/2025 Travel 06/05/2025 Orders Only [facility] External Provider, [facility] 06/05/2025 Patient Outreach [facility] MEDICINE [address] [place] [address] Ted Olvera Recovery Supports 05/30/2025 10:00 AM EDT Office Visit [facility] [address] [place] [address] Migue Stephens MD Alcohol use disorder, severe, in sustained remission (CMS/HCC) (Primary Dx) 05/30/2025 Travel 05/29/2025 Patient Outreach [facility] MEDICINE [address] [place] [address] Ted Olvera Recovery Supports from Last 3 Months Immunizations Immunization Administration Dates Next Due Hep A, Adult 09/02/2022,02/17/2022 Hep B, adult 09/02/2022,05/06/2022,02/17/2022 IG 10/01/2021 Influenza High-dose Quadriva lent Preservative Free 08/17/2023 Influenza Injectable Quadriv alant Preservative Free IIV4 MDCK 12/17/2017 Influenza injectable quadriv alent preservative free 08/05/2022,10/01/2021,09/13/2020 Influenza, High Dose Seasona l, Preservative Free 08/22/2025,10/01/2021 Influenza, IIV3, injectable 08/11/2019,1 12/06/2015,09/16/2015,08/01,07/09/2013 Influenza, seasonal, injecta ble, preservative free 09/16/2015 Influenza, trivalent, adjuvanted 09/09/2024 Moderna Covid-19 Vaccine 12+ 03/04/2022, 10/01/2021,02/09/2021,01/11 Pfizer Covid-19 Vaccine 12+ 08/22/2025, Pfizer Covid-19 Vaccine 12+ Bivalent 09/02/2022 Pneumococcal [...] 08/22/2025 11:1 8 AM EDT Oxygen Saturation 97% 07/23/2025 1:15 PM EDT Inhaled Oxygen Concentration - - Weight 71.6 kg (157 lb 12.8 oz) 025 11:18 AM EDT Height 160 cm (5' 3 ) 08/22/2025 11:18 AM EDT Body Mass Index 27.95 08/22/2025 11:18 AM EDT Plan of Treatment Upcoming Encounters Date Type Department Care Team (Late st Contact Info) Description 09/13/2025 1:00 PM EDT Office Visit [facility] OPTOMETRY [address] [place] [address] Renetta Mitchell OD [address] [place] [address] 10/30/2025 1:00 PM EST Clinical Support [facility] MEDICINE [address] [place] [address] Janae Walden, C[place] 11/02/2025 11:15 AM EST Office Visit [facility] MEDICINE [address] [place] [address] Brittany Saldana MD [address] [place] [address] Health Maintenance Due Date Last Done Comments CT Colonography 1957 Dental Oral Exam 1957 Dental Prophylaxis 1957 Dental X-Ray: Bitewings 1957 Dental X-Ray: Full Mouth 1957 FIT DNA/Cologuard 1957 FIT 1957 FOBT 1957 Sigmoidoscopy 1955 Colonoscopy 09/19/2025 09/19/2024 Colorectal Cancer Screening 09/19/2025 Diabetes: Hemoglobin A1C 10/07/2025 025, 12/07/2024, 07/26/2024, Additional history exists Alcohol/Substance Use Screening 12/07/2025 12/07/2024 SDOH Screening 01/22/2026 01/22/2025 Eye Exam 04/06/2026 04/06/2024, 03/16, 04/06/2024, Additional history exists Lipid Panel 04/06/2026 04/06/2025, 12/16, 02/24/2023, Additional history exists Diabetes: Urine Protein Screening 04/10/2026 04/10/2025, 05/02/2024, 12/09/2021 Diabetes: Foot Exam 06/19/2026 06/19/2025, 06/19/2025, 06/19/2025, Additional history exists Depression Screening 08/22/2026 08/22/2025, 08/22/20 Tobacco Screening 08/22/2026 08/22/2025 DTaP/Tdap/Td Vaccines (2 - Td or Tdap) [...] or older Completed 02/12/2024 COVID-19 Vaccine Completed 08/22/2025, , 08/17/2023, Additional history exists Influenza Vaccine Completed 08/22/2025, , 08/17/2023, Additional history exists HIB Vaccines Aged Out [...] AM EDT) 06/05/2025 8:15 AM EDT Narrative [facility] - 06/08/2025 2:10 PM EDT [place] [address] Nuclear Medicine Report Signed Patient: Dane Calles MR#: [id number] : 1955 Acct:[id number] Age/Sex: 70 / M ADM Date: 06/05/25 Loc: [facility] Attending Dr: Zane Mendez NP Ordering Physician: Zane Mendez NP Date of Service: 06/05/25 Procedure(s): NM cardiolite stress test Accession Number(s): [id number] cc: Brittany Saldana MD; Zane Mendez NP [...] 06/08/25 1407 DD/ 0815 TD/TT: 06/08/25 0815 Commissioner Of Relocation Services: Procedure Note Donotuseinterpreter, Image - 06/08/2025 [place] [address] Nuclear Medicine Report Signed Patient: Dane Calles JMR#: [id number] : 1955cct:[id number] Age/Sex: 70 / MADM Date: 06/05/25 Loc: HO.CARD Attending Dr: Zane Mendez NP Ordering Physician: Zane Mendez NP Date of Service: 06/05/25 Procedure(s): NM cardiolite stress test Accession Number(s): [id number] cc: Brittany Saldana MD; Zane Mendez NP [...] 06/08/25 1407 DD/ 0815 TD/TT: 06/08/25 0815 Commissioner Of Relocation Services: [facility] External Provider CV STRE SS PROCEDURES Edited Result - Final Performing Organization Address [facility]/ZIP Co de Phone Number [facility] [address] [place] [address] * Albumin, Random Urine W/Creatinine (04/10/2025 10:21 AM EDT) Creatinine, Urine 61.10 mg/dL [facility] Microalbumin Urine 14.0 mg/L [facility] Microalbum Creatinine Ratio Ur 22.9 <30 ug/mg cr [facility] Comment:Albumin/Creatinine R atio Reference Ranges: Normal: < 30 ug/mg creatinine Microalbuminuria: 30 - 300 ug/mg creatinineClinical Albuminuria: > 300 ug/mg creatinine 04/10/2025 10:2 1 AM EDT 04/10/2025 11:06 AM EDT Brittany Saldana MD LAB URINE ORDERABLES Fin al Result Performing Organization Address City/[facility]/ZIP Co de Phone Number [facility] [address] [place] [phone] * Hemoglobin A1c (04/06/2025 9:03 AM EDT) Hemoglobin A1c 5.0 <6.0 % [facility] Comment:Hemoglobin A1C Refer ence Range Adults: 4.8 - 6.0 % Non diabetic: < 6.0 % Goal: < 7.0 %Additional Action Suggested: > 8.0 %Note: Hemoglobin A1c results are invalid for patients with abnormal amounts of HbF. Blood transfusions may impact the HbA1c concentration in the patient sample. Estimated Average Glucose 97 mg/dL [facility] Comment:eAG = Estimated ave rage glucose which is %A1C expressed asaverage glucose, using the formula of the [id number] Glucose study (ADAG), Diabetes Care, Vol.31,#8,2007 04/06/2025 9:03 AM EDT 04/06/2025 11:03 AM EDT us Generic External Data Provider LAB BLOOD ORDERAB LES Final Result Performing Organization Address [facility]/ZIP Co de Phone Number [facility] [address] [place] [address] [phone] * (ABNORMAL) Lipid Panel, Standard (04/06/2025 9:03 AM EDT) Triglycerides 63 <150 mg/dL [facility] Comment:Desirable Triglyceri de: less than 150 mg/dLBorderline High Triglyceride 150-199 mg/dLHigh Triglyceride: 200-499 mg/dLVery High Triglyceride: greater than or equal to 5OO mg/dL Cholesterol 124 <200 mg/dL [facility] Comment:Desirable Cholestero l: less than 200 mg/dLBorderline High Cholesterol: 200-239 mg/dLHigh Cholesterol: greater than 239 mg/dL LDL Cholesterol Calculated 75 <100 mg/dL [facility] Comment:Desirable LDL: less than 100 mg/dLNear Optimal/Above Optimal LDL: 110- 129 mg/dLBorderline High LDL: 130-159 mg/dLHigh LDL: 160-189 mg/dLVery High LDL: greater than or equal to 190 mg/dL HDL Cholesterol 37(L) >40 mg/dL [facility] Comment:Desirable HDL: great er than 40 mg/dL Note: This HDL assay may give artificially low results in patients with liver disease. 04/06/2025 9:03 AM EDT 04/06/2025 11:23 AM EDT us Generic External Data Provider LAB BLOOD ORDERAB LES Final Result Performing Organization Address [facility]/ZIP Co de Phone Number [facility] [address] [place], [place] [phone] * (ABNORMAL) Hm Colonoscopy (09/19/2024) Colonoscopy Normal Normal [facility] Comment:poor prep us Brittany Saldana MD HEALTH MAINTENANCE Final Result Performing Organization Address City/[facility]/ZIP Co de Phone Number [facility] [address] [place] [address] [phone] * HEPATITIS C AB W/REFL TO HCV RNA, QN, PCR (12/09/2021 11:13 AM EST) HEPATITIS C ANTIBODY NON-REACT JAMES NON-REACT JAMES [facility] INDEX 0.03 <1.00 [facility] Comment: HCV antibody was non-reactive. There is no laboratory evidence of HCV infection. In most cases, no further action is required. However, if recent HCV exposure is suspected, a test for HCV RNA (test code 00300) is suggested. For additional information please refer to http://education.Paperless Post/faq/ZZW78p7 (This link is being provided for informational/ educational purposes only.) 12/09/2021 11:1 3 AM EST us Lulu Garcia ANP HISTORICAL/NON ORDERABLE LABS Fi nal Result Performing Organization Address City/State/[facility] Co de Phone Number [facility] Formerly [facility] [address] from Last 3 Months or Most Recently Relevant to Health Maintenance Insurance [facility] [employer] OPT[employer] (HMO D-SNP) [facility] STANDARD Care Teams Director Business Management Relationship Specialty Start Date End Date Brittany Saldana MD [address] [place] [address] PCP - General Family Medicine 05/08/20 Darrin Hernandez FNP [address] [place] [address] Nurse Practitioner Family Medicine 10/19/23
--- OUTSIDE RECORDS SUMMARY | 2025-08-24 10:26 | XMS_ITS | Clinical Summary ---
Author Organization 175 [facility] Address [address] [place] [address] Phone Care Team Providers Care Residential Real Estate Appraiser Name Role Phone Brittany Saldana MD Primary Care Provider + [phone] Allergies Active Allergy Reactions Criticality Noted Date [...] 12/07/2024 Polyneuropathy associated wi th underlying disease (CMS/[facility] V24) 12/07/2024 Recurrent major depressive d isorder, in partial remission ([facility] V24) 12/07/2024 Neurofibroma of upper extremity 09/22/2024 Vertigo 07/26/2024 Fall (on) (from) other stairs and steps, initial encounter 06/29/2024 Bradycardia 03/21/2024 Arthritis of both hands 11/18/2023 Chronic fatigue 06/03/2023 Erectile dysfunction 06/03/2023 Iliopsoas bursitis of left hip 06/03/2023 Type 2 diabetes mellitus wit hout complication, without long-term current use of insulin ([facility] V24, [facility] V28) 02/08/2023 Varicose veins of bilateral lower [...] 08/07/2025 10:30 AM EDT Office Visit Pulmonology [facility] 175 [facility] [address] [place] [address] Sena Mobley MD Nocturnal hypoglycemia (Primary Dx) 07/31/2025 3:58 PM EDT - 07/31/2025 11:59 PM EDT Hospital Encounter [facility] CT Scan [address] [place] [phone] Pulmonary nodule Discharge Disposition: Home or Self Care 07/03/2025 10:30 AM EDT Office Visit Pulmonology [facility] [address] [phone] Sena Mobley MD Pulmonary nodule (Primary Dx); Neurofibromatosis (CMS/HCC V24, CMS/HCC V28) from Last 3 Months [...] Signed Date: 08/03/2025 12:05 ET Workstation ID: [id number] Transcribed By: Self Edit Transcribed Date: 08/03/2025 [...] Signed Date: 08/03/2025 12:05 ET Workstation ID: [id number] Transcribed By: Self Edit Transcribed Date: 08/03/2025 11:58 ET Sena Mobley MD IMG CT PROCEDURES Final Resu lt from Last 3 Months Insurance [facility] Member Subscriber Plan / Payer (Ef fective 2023-Present) Name:Dane Calles Relation to Subscriber:Self Name:Dane Calles Payer ID:[id number] Group ID:[id number] Type:Not on file Address: [address] [place] [address] Care Teams Residential Real Estate Appraiser Relationship Specialty Start Date End Date Brittany Saldana MD [address] [place] [phone] PCP - General Internal Medicine 07/05/25
[2025-08-24 11:09] LABS: Anion Gap 12 (12-20); Blood Urea Nitrogen 19 mg/dL (9-16); Calcium 9.7 mg/dL (8.4-10.2); Carbon Dioxide 30 mmol/L (22-29); Chloride 104 mmol/L (96-108); Estimated Glomerular Filt Rate > 60; Potassium 4.6 mmol/L (3.3-5.1); Sodium 141 mmol/L (135-145)
== END 2025-08-24 09:43 | disposition home or self-care (01) ==
LOC: HO.LAB 09:42
PROVIDERS: PCP Internal Medicine; Visit Provider Nurse Practitioner Family
DX: I10 Essential (primary) hypertension (principal)
CPT/HCPCS: 36415; 80048

== ENCOUNTER 2025-09-17 12:04 | Outpatient (AMB) | payer OTHER, SELFPAY ==
--- NOTE | 2025-09-17 12:20 | A.OFFVIS_ITS ---
VS Expanded 09/17/25 12:23 Height 5 ft 3 in Weight 147 lb BMI 26.0 Intake Visit Reasons: TV PO LSG 03/16/24 Allergies Penicillins Allergy (Verified 08/16/25 07:39) Shortness of Breath HPI Comments Details: This a 70 yo male who is s/p LSG without hiatal hernia repair on 03/16/2024. Presents for 18 months post op visit. Weight today is 147.8 pounds, with a BMI of 26.0. Initial weight 222.4 pounds since starting the program on 12/21/2023 and operative weight 190.5 pounds. No complaints of nausea, emesis, abdominal pain or reflux. Reports infrequent but normal bowel movements every 2 days and uses stool softeners regularly. He states that things are going well. He has not been able to afford the shakes and is eating 3 meals per day. He is taking Certavit Sr antioxident MVI once daily. Found to have thyroid disease and he is referred to endocrinology. He also a brief period of SOB and CP and he has followed up with cards and stress test was normal. Overall feeling well and very happy with the results of his procedure. Continues on lisinopril and spironolactone, had clonidine dose increased for better BP control. Present meal plan includes: 3 meals 4 forks protein and 4 forks veggies Drinking 48 oz fluids Exercise routine includes: 1.5 mile walk daily Have you been diagnosed with reflux (GERD)? Score 0-5: 0=no symptoms, 1=noticeable but not bothersome (slight or occasional), 2=noticeable, bothersome but not daily, 3=bothersome and daily, 4=affects daily activities, 5=incapacitating, unable to do daily activities How bad is the heartburn: 0 Heartburn when lying down: 0 Heartburn when standing up: 0 Heartburn after meals: 0 Does heartburn change your diet: 0 Does heartburn wake you up from sleep: 0 Do you have difficulty swallowin Do you have pain with swallowin If you take medication for reflux, does this affect your daily life: 0 Total score: 0 [facility] Medical History (Updated 08/16/25 @ 08:15 by Marielos Avendano MD) Low serum triiodothyronine (T3) Diabetes Atrial fibrillation Osteoarthritis DJD (degenerative joint disease) Von Recklinghausen disease GERD (gastroesophageal reflux disease) Anxiety Hyperlipidemia Insomnia Sleep apnea with use of continuous positive airway pressure (CPAP) Obesity Depression ADD (attention deficit disorder) Colon polyp Microscopic hematuria HTN (hypertension) AA (alcohol abuse) BPH (benign prostatic hyperplasia) Surgical History History of esophagogastroduodenoscopy (EGD) S/P laparoscopic sleeve gastrectomy Hx of tonsillectomy H/O bilateral inguinal hernia repair H/O umbilical hernia repair H/O colonoscopy Family History Mother Throat cancer Paternal Aunt Colon cancer Maternal Grandfather No problems noted. Sister Heart attack Stented coronary artery Hx of cardiac cath Hypertrophic obstructive cardiomyopathy (HOCM) Social History Household Members: Family Housing: House Are you a primary critical care physician assistant to a significant other at home: No Do you presently have visiting nurse or other home services: No Alcohol intake: former Patient Tobacco Use Status: Former Tobacco user service: No Telehealth Telehealth Telehealth Platform: Telephone Location of provider rendering services: practice address Location of patient: address on file Patient Identification confirmed using: Name, : Yes Telehealth method: voice only Patient verbally consented to treatment: Yes Patient verbally consented to billing insurance company: Yes Patient informed of any privacy concerns related to visit: Yes Minutes spent on Phone/Video with Pt.: 15 Assessment & Plan Assessment & Plan (1) Overweight (BMI 25.0-29.9): Code(s): E66.3 - Overweight Category: Medical (2) S/P laparoscopic sleeve gastrectomy: Code(s): Z98.84 - Bariatric surgery status Category: Medical (3) HTN (hypertension): Code(s): I10 - Essential (primary) hypertension Category: Medical Plan Pt doing well without complications from surgery, happy with his current meal plan and exercise regimen. No issues with reflux. Due for vitamin labs and CBC, recently had some labs done with cardiology. RTC 6 mo for annual, sent pt my phone # to text if he has any questions or concerns before next visit. Orders: Orders Zinc Today Z98.84 - Bariatric surgery status Vitamin A Today Z98.84 - Bariatric surgery status Vitamin B1 Today Z98.84 - Bariatric surgery status Complete Blood Count Auto Diff Today Z98.84 - Bariatric surgery status Vitamin D 25-OH Total Today Z98.84 - Bariatric surgery status Vitamin B12 and Folate Today Z98.84 - Bariatric surgery status Ferritin Today Z98.84 - Bariatric surgery status IRON PROFILE Today Z98.84 - Bariatric surgery status C Reactive Protein Today Z98.84 - Bariatric surgery status
[2025-09-17 12:23] VITALS: BMI 26.0
--- OUTSIDE RECORDS SUMMARY | 2025-09-17 15:17 | XMS_ITS | Clinical Summary ---
[facility] Organization [facility] Address [address] [place] [address] Care Team Providers Care Invoice Machine Operator Name Role Phone Selvin Payan MD Primary Care Provider [phone] Allergies Active Allergy Reactions Criticality Noted Date [...] age to complete this topic Care Teams Invoice Machine Operator Relationship Specialty Start Date End Date Selvin Payan MD [address] [place] [address] PCP - General Internal Medicine 03/08/18
--- OUTSIDE RECORDS SUMMARY | 2025-09-17 15:17 | XMS_ITS | Patient Health Record ---
Author Organization [facility] Address [address] [facility] [address] [place] [address] Support Name Relationship Address Phone Dane Calles Guarantor Unknown [phone] Allergies Allergen (clinical drug ingredient) Drug/Non Drug [...] Disorder due to type 2 diabetes mellitus (671089311) Type 2 diabetes mellitus with unspecified complications (E11.8) Active confirmed Problem Morbid obesity (disorder) (407403319) Morbid (severe) obesity due to excess calories (E66.01) Active confirmed Problem Mixed hyperlipidemia (944995977) Mixed hyperlipidemia (E78.2) Active confirmed Problem Alcohol dependence (55389683) Alcohol dependence, uncomplicated (F10.20) Active confirmed Problem Mild recurrent major depression (79369335) Major depressive disorder, recurrent, mild (F33.0) Active confirmed Problem 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, intractable, 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) Active confirmed Problem 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, intractable, without status epilepticus (G40.219) Active confirmed Problem Obstructive sleep apnea syndrome (disorder) (92921864) Obstructive sleep apnea (adult) (pediatric) (G47.33) Active confirmed Problem Essential hypertension (70638239) Essential (primary) hypertension (I10) Active confirmed Problem Gastro-esophageal reflux disease without esophagitis (528312166) Gastro-esophageal reflux disease without esophagitis (K21.9) Active confirmed Problem Neurofibromatosis (59162962) Neurofibromatosis , 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) Active confirmed Problem Somnolence (87259334) Somnolence (R40.0) Active confirmed Problem Attention deficit hyperactivity disorder, predominantly inattentive type (disorder) (23429649) Attention and concentration deficit (R41.840) Active confirmed Problem Body mass index 40+ - severely obese (448544989) Body mass index (BMI) 40.0-44.9, adult (Z68.41) Active confirmed Problem Lower urinary tract symptoms due to benign prostatic hypertrophy (96707425019319) Benign prostatic hyperplasia with lower urinary tract symptoms (N40.1) Active confirmed Problem Morbid obesity (362952511) Morbid obesity (E66.01) Active confirmed Plan Of Treatment No Information Medical (General) History Medical History History ICD Code hypertension, benign acid reflux BPH see Urology Attention deficit disorder Neurofibromatosis complex partial seizure disorder Surgical History Surgery Date(Month/Year) Umblical hernia repair 2004 Tonsellectomy Cyst in throat removed
--- OUTSIDE RECORDS SUMMARY | 2025-09-17 15:17 | XMS_ITS | Data Portability ---
Author Organization [place] - [facility], [facility] Address [address] [address] Care Team Providers Care Commercial Energy Auditor Name Role Phone AGUEDA ROUSSEAU Referring Provider [...] 6-12 months, sooner with sudden hearing changes. Smiley-Hallpike was negative for vertigo and rotary nystagmus. [...] recorded. Referral vestibular therapy [facility] 2024 [facility] [place] [address] [place] [address], [place], [address], 5 10:49:53 Procedures None recorded. Surgeries None [...] Organization Details Recorded Time Mass of neck 800816401 Active 2018 Localized swelling, mass and lump, neck; Note: Date Diagnosed : 9 3:24 PM (R22.1) Not Available [facility] 4 03:19:11 Neck swelling 533297657 Active 2018 Localized swelling, mass and lump, neck; Note: Date Diagnosed : 9 3:24 PM (R22.1) Not Available [facility] 4 03:19:11 Neurofibr omatosis syndrome 76206560 Active 2018 Neurofibr omatosis, unspecifi ed; Note: Date Diagnosed : 9 3:24 PM (Q85.00) Not Available [facility] 4 03:19:10 Impacted cerumen of bilateral ears 38443854816 55500 Active 2018 Impacted cerumen, bilateral ; Note: Date Diagnosed : 9 3:23 PM (H61.23) Not Available [facility] 4 03:19:10 Sensorine ural hearing loss of bilateral ears 750410592 Active 2018 Sensorine ural hearing loss, bilateral ; Note: Date Diagnosed : 9 10:13 AM (H90.3) Not Available [facility] 4 03:19:11 Follow-up visit Active 2019 Encounter for follow-up examinati on after completed treatment for condition s other than malignant neoplasm; Note: Date Diagnosed : 12/22/2019 11:28 AM (Z09) Not Available [facility] 4 03:19:10 Benign neoplasm of major salivary gland 97857066 Active 2019 Benign neoplasm of major salivary gland, unspecifi ed; Note: Date Diagnosed : 01/24/2020 9:34 AM (D11.9) Not Available [facility] 4 03:19:11 Bilateral tinnitus 90441047741 02 Active 2024 MAXIMO ROBINS PA-C [address] [facility],[place] [address], [place], [address] , [place] - [facility] 5 11:02:48 Vertigo 120025535 Active 2024 MAXIMO ROBINS PA-C [address] [facility] [address], [place], [address] , [place] - [facility] 5 11:02:54 Problem Notes None recorded. Procedures Surgical History Date Name Laterality Status Provider Name and Address Organization Details Recorded Time 06/06/2025 Comp Audio with Tymps - 95234 & 78454 completed ROD RICH [address] [facility],[place] [address], [place], [address], [facility] 06/06/2025 09:54:56 Imaging Results None recorded. Procedure Notes None recorded. Medical Equipment None Reported. Allergies Allergen ID Allergen Name Allergen Category Reaction Reaction Severity Criticality Documentation Date Start Date Code Code System Note Provider Name and Address Organization Details Recorded Time 946303 penicilli n V potassium medicatio n other Not available Not available 03/28/2024 5 RxNorm React ion: unkno wn, unspe cifie d;; Not Available [facility] 4 01:25:46 Medications Name Sig Start Date Stop Date Status Note LastModified by Organization Details LastModified Time metformin 500 mg tablet 2019 active Medicati on ID: 295712 D uration Value: 90 Brand Name: metformi [...] 24 hr 2018 active Medicati on ID: 119717 D uration Value: 90 Brand Name: felodipi ne Send Method: E-Prescr ibed Sub s Allowed: subs OK Speci al Instruct ion: TK 1 T PO QD Medic ationGen ericName : felodipi ne Not Available Not Available Not Available omeprazol e 40 mg capsule,d elayed release 06/06 completed Medicati on ID: 886236 D uration Value: 90 Brand Name: omeprazo le Send Method: E-Prescr ibed Sub s Allowed: subs OK Speci al Instruct ion: TAKE ONE CAPSULE BY MOUTH EVERY DAY [facility] nericNam e: omeprazo le Not Available Not Available Not Available ketorolac 0.5 % eye drops INSTILL 1 DROP AFFECTED EYE(S) THREE TIMES DAILY STARTING 2 DAYS BEFORE SURGERY active Not Available Not Available No t Available tamsulosi n 0.4 mg capsule 2018 active Medicati on ID: 518521 D uration Value: 90 Brand Name: tamsulos [...] mg tablet 06/06 completed Medicati on ID: 291654 D uration Value: 30 Brand Name: dextroam [...] mg tablet 2018 active Medicati on ID: 293973 D uration Value: 90 Brand Name: lisinopr il Send Method: E-Prescr ibed Sub s Allowed: subs OK Melaniei al Instruct ion: TK 1 T PO QD [facility] : lisinopr il Not Available Not [...] aerosol inhaler 2018 active Medicati on ID: 769125 D uration Value: 50 Brand Name: ProAir [...] unit) capsule 06/06 completed Medicati on ID: 777872 D uration Value: 90 Brand Name: cholecal [...] Updated DateTime 06/06/2025 160.02 cm 24.8 kg/m2 04984.93 g Stephanie Velázquez [place] - [facility] 06/06/2025 10:05:26 Social History None recorded. Functional Status None recorded. Mental Status None recorded. Family History Nothing Reported. Medical History Condition Response Heart Problems Arthritis Y Anxiety Y Hypertension Y Asthma Y Past Encounters Encounter ID Performer Location Encounter Start Date Encounter Closed Date Diagnosis/Indication Diagnosis SNOMED-CT Code Diagnosis ICD10 Code Diagnosis IMO Codes Diagnosis Note [id number] MAXIMO ROBINS PA-C [facility] [address] [address] 06/06/2025 09:23:34 06/06/2025 12:24:03 Sensorineural hearing loss of bilateral ears 384514875 H90.3 Audiologic al evaluation results: Right ear: Normal sloping to severe sensorineu ral hearing loss with very good word recognitio n. Left ear: Normal through 2 kHz sloping to severe sensorineu ral hearing loss with excellent word recognitio n. Tympanomet ry: Right Ear:Type A Left Ear:Type A Bilateral tinnitus 95332 22279 102 H93.13 528985 Vertigo 265452422 R42 53194 Health Concerns Section Related Observation LastModified by Organization Detai ls LastModified Time None Recorded Concern Status LastModified by Organization Details LastModified Time None Recorded Advance Directives Directive None Recorded Payers Insurance Date Sequence Insurance Name Policy Number Policy Velasco Covered Member ID Velasco Member ID Guarantor Name 06/06/2025 1 [facility] Dane Calles [id number] Dane Calles 08/06/2025 1 [facility] - DOS ON OR AFTER 2023 - MEDICARE ADVANTAGE [place] & [place] (MEDICARE REPLACEMENT/AD VANTAGE - PPO) Dane Calles [id number] Dane Calles 08/06/2025 2 [place] [facility] Dane Calles [id number] Dane Calles Notes Date Note Type Note [...] excision with Dr. Vasquez. MAXIMO ROBINS PA-C [address] [place] [address], [place], [address], [facility] - [facility] 06/06/2025 12:11:20
--- OUTSIDE RECORDS SUMMARY | 2025-09-17 15:18 | XMS_ITS | Clinical Summary ---
Author Organization 175 [facility] Address [address] [place] [address] Phone Care Team Providers Care Materials Intern Name Role Phone Brittany Saldana MD Primary Care Provider + [phone] Allergies Active Allergy Reactions Criticality Noted Date [...] 12/07/2024 Polyneuropathy associated wi th underlying disease (CMS/[facility] V24) 12/07/2024 Recurrent major depressive d isorder, in partial remission ([facility] V24) 12/07/2024 Neurofibroma of upper extremity 09/22/2024 Vertigo 07/26/2024 Fall (on) (from) other stairs and steps, initial encounter 06/29/2024 Bradycardia 03/21/2024 Arthritis of both hands 11/18/2023 Chronic fatigue 06/03/2023 Erectile dysfunction 06/03/2023 Iliopsoas bursitis of left hip 06/03/2023 Type 2 diabetes mellitus wit hout complication, without long-term current use of insulin ([facility] V24, [facility] V28) 02/08/2023 Varicose veins of bilateral lower [...] 08/07/2025 10:30 AM EDT Office Visit Pulmonology [facility] 175 [facility] [address] [place] [address] Snea Mobley MD Nocturnal hypoglycemia (Primary Dx) 07/31/2025 3:58 PM EDT - 07/31/2025 11:59 PM EDT Hospital Encounter [facility] CT Scan [address] [place] [phone] Pulmonary nodule Discharge Disposition: Home or Self Care 07/03/2025 10:30 AM EDT Office Visit Pulmonology [facility] [address] [address] Sena Mobley MD Pulmonary nodule (Primary Dx); [...] Risk Assessment 04/02/2025 Hepatitis C Screening 04/02/2025 Medicare Annual Wellness Visit 04/02/2025 Social Influencers of Health Screening 04/02/2025 [...] Signed Date: 08/03/2025 12:05 ET Workstation ID: [id number] Transcribed By: Self Edit Transcribed Date: 08/03/2025 [...] Signed Date: 08/03/2025 12:05 ET Workstation ID: [id number] Transcribed By: Self Edit Transcribed Date: 08/03/2025 11:58 ET Sena Mobley MD IMG CT PROCEDURES Final Resu lt from Last 3 Months Insurance [facility] [facility] [facility] MEDICARE Member Subscriber Plan / Payer (Ef fective 2023-Present) Name:Dane Calles Relation to Subscriber:Self Name:Dane Calles Payer ID:[id number] Group ID:[id number] Type:Not on file Address: [address] [place] [place] [address] Care Teams Materials Intern Relationship Specialty Start Date End Date Brittany Saldana MD [address] [place] [phone] PCP - General Internal Medicine 07/05/25
== END 2025-09-17 12:32 | disposition home or self-care (01) ==
LOC: HO.HBS 12:04
PROVIDERS: PCP Internal Medicine; Visit Provider Physician Assistant Surgical
DX: E66.3 Overweight (principal); Z68.26 Body mass index [BMI] 26.0-26.9, adult; Z90.3 Acquired absence of stomach [part of]; Z98.84 Bariatric surgery status; I10 Essential (primary) hypertension
CPT/HCPCS: 99213; G2211

== ENCOUNTER 2025-09-21 09:58 | Outpatient (REF) | payer OTHER, SELFPAY ==
--- OUTSIDE RECORDS SUMMARY | 2025-09-19 10:00 | XMS_ITS | Encounter Summary ---
Author Organization [employer] Address [address] [place] [address] [place] [address] Care Team Providers Care Staff Mine Warfare Officer Name Role Phone Brittany Saldana MD Primary Care Provider + Darrin Hernandez Unavailable Unavailable Reason for Visit * Reason Comments GBAT F/U Encounter Details Date Type Department Care Team ([facility] st Contact Info) Description 09/19/2025 10:00 AM EST Office Visit [facility] [address] [place] [address] Migue Stephens MD [address] [place] [address] Alcohol use disorder (Primary Dx) Social History [...] the past 12 months, has t he [employer], gas, oil or water [employer] threatened to shut off services in your home? No 02/29/2024 Depression Answer Date Recorded Patient Health Questionnaire-2 Score 6 08/28/2025 Internet Access Answer Date Recorded Internet Access [...] Progress Notes * Migue Stephens MD - 09/19/2025 10:00 AM EST LAST GBAT VISIT 09/05/2025 Patient presents for Group-Based Opioid Treatment for AUD Reviewed the group goals, expectations and policies Consented to the group treatment options Actively participated in the group discussion with the topic of: Purpose and Challenges Following staff present at the visit: Physician, Glass Furnace Tender, Team RN, and Sharemilker Opportunities provided to address individual medical/medication/BH concerns States doing well without cravings or relapse TODAY GBAT VISIT 09/19/2025 Patient presents for Group-Based Opioid Treatment for AUD Reviewed the group goals, expectations and policies Consented to the group treatment options Actively participated in the group discussion with the topic of: Self [place] Following staff present at the visit: Physician, Glass Furnace Tender, Team RN, and Sharemilker Opportunities provided to address individual medical/medication/BH concerns States doing well without cravings or relapse Review of Systems Psychiatric/Behavioral: Negative for behavioral problems and dysphoric mood. The patient is not nervous/anxious. Physical Exam Constitutional: Appearance: Normal appearance. Pulmonary: Effort: Pulmonary effort is normal. Neurological: Mental Status: He is alert. Psychiatric: Mood and Affect: Mood normal. Behavior: Behavior normal. Dane was seen today for gbat f/u . Diagnoses and all orders for this visit: [...] when faced situations that may trigger use Following staff present at the visit: Physician, Glass Furnace Tender, Team RN, and Sharemilker Follow up in 1 week for the [...] Care Team (Late st Contact Info) Description 10/30/2025 1:00 PM EST Clinical Support [address] [address] Janae Walden, CORTES 11/02/2025 11:15 AM EST Office Visit [address] [address] Brittany Saldana MD [address] [place] [address] documented as of this encounter Goals Goal Patient Goal Type Associated Problems Recent Progress Patient-Stated? Author Blood Pressure < 140/90 Blood Pressure 138/60(2024 11:10 AM EDT) No Venkatesh Skinner, Magnolia Decrease [...] documented as of this encounter Care Teams Staff Mine Warfare Officer Relationship Specialty Start Date End Date Brittany Saldana MD [address] [place] [address] PCP - General Family Medicine 05/08/20 Darrin Hernandez FNP [address] [place] [address] Nurse Practitioner Family Medicine 10/19/23 documented as of this encounter
[2025-09-21 10:16] LABS: MANUAL DIFF FLAG NO
[2025-09-21 10:40] LABS: Hematocrit 38.0 % (42.0-52.0); Hemoglobin 12.5 g/dl (14.0-18.0); Imm Gran Abs Auto 0.04 X10*3/uL (0.00-0.03); Imm Gran Pct Auto 0.4 % (0.0-0.4); Lymphocytes Absolute Auto 1.5 X10*3/uL (1.2-4.9); Mean Corpuscular HGB Conc 32.9 g/dl (31.0-36.0); Mean Corpuscular Hemoglobin 30.8 pg (27.0-33.0); Mean Corpuscular Volume 93.6 fL (80.0-98.0); NRBC Abs Auto 0.000 X10*3/uL (0.0-0.012); NRBC Pct Auto 0.0 /100WBC (0.0-0.2); Platelet Count 220 X10*3/uL (160-400); Red Blood Count 4.06 X10*6/uL (4.60-5.80); White Blood Count 9.0 X10*3/uL (4.8-10.8)
[2025-09-21 11:12] LABS: Iron 108 mcg/dL (45-160); Percent Iron Saturation 50 % (15-50); Total Iron Binding Capacity 216 mcg/dL (228-428); Unsaturated Iron Binding 108 ug/dL
[2025-09-21 11:17] LABS: Ferritin 115 ng/mL (20-250)
[2025-09-21 11:28] LABS: Folate 13.5 ng/mL (> or = 4.0); Vitamin B12 1101 pg/mL (200-900)
--- OUTSIDE RECORDS SUMMARY | 2025-09-21 11:41 | XMS_ITS | Encounter Summary ---
Author Organization [employer] Address [address] [place] [address] 7 [place] [address] Care Team Providers Care Mechanical Detailer Name Role Phone Brittany Saldana MD Primary Care Provider + Darrin Hernandez Unavailable Unavailable Encounter Details Date Type Department Care Team (Latest Contact Info) Description 08/07/2022 Abstract [facility] CONVERSIONS Dental, Provider, DDS Social [...] Description 10/30/2025 1:00 PM EST Clinical Support [facility] MEDICINE [address] [place] [phone] Janae Walden, RN 11/02/2025 11:15 AM EST Office Visit [facility] MEDICINE [address] [place] [phone] Brittany Saldana MD [address] [place] [phone] documented as of this encounter Visit Diagnoses Not on filedocumented in this encounter Care Teams Mechanical Detailer Relationship Specialty Start Date End Date Brittany Saldana MD [address] [place] [address] PCP - General Family Medicine 05/08/20 Darrin Hernandez FNP [address] [place] [address] Nurse Practitioner Family Medicine 10/19/23 documented as of this encounter
--- OUTSIDE RECORDS SUMMARY | 2025-09-21 11:41 | XMS_ITS | Encounter Summary ---
Author Organization [employer] Address [address] [place] [address] 7 [place] [address] Care Team Providers Care Spark Plug Tester Name Role Phone Brittany Saldana MD Primary Care Provider + Darrin Hernandez Unavailable Unavailable Reason for Visit * Reason Onset Date Comments Appointment 09/10/2023 Encounter Details Date Type Department Care Team (Late st Contact Info) Description 09/10/2023 Telephone [facility]ENTAL [address] [place] [address] Misbah Kerraris [address] [place] [address] Appointment Social History Tobacco Use Types Packs/Day [...] cleaning appt. Last appt he had in [place] was deep leaning in September and the [...] Description 10/30/2025 1:00 PM EST Clinical Support [facility] MEDICINE [address] [place] [phone] Janae Walden, CORTES 11/02/2025 11:15 AM EST Office Visit [facility] [address] [place] [phone] Brittany Saldana MD [address] [place] [address] documented as of this encounter Visit Diagnoses Not on filedocumented in this encounter Additional Health Concerns Assessment Noted Time PHQ-9 Depression Total Score: 4 09/06/20 23 11:30 AM EDT documented as of this encounter Care Teams Spark Plug Tester Relationship Specialty Start Date End Date Brittany Saldana MD [address] [place] [address] PCP - General Family Medicine 05/08/20 Darrin Hernandez FNP [address] [place] [address] Nurse Practitioner Family Medicine 10/19/23 documented as of this encounter
--- OUTSIDE RECORDS SUMMARY | 2025-09-21 11:41 | XMS_ITS | Encounter Summary ---
Author Organization [employer] Address [address] [place] [address] [place] [address] Care Team Providers Care Comb Winder Name Role Phone Brittany Saldana MD Primary Care Provider + Darrin Hernandez Unavailable Unavailable Reason for Visit * Reason Onset Date Comments Referral 09/02/2023 Encounter Details Date Type Department Care Team (Late st Contact Info) Description 09/02/2023 Telephone [facility] MED[facility] [address] [place] [address] Brittany Saldana MD [address] [place] [address] Referral Social History Tobacco Use Types Packs/Day [...] from pt requesting a new referral for Chief Security And Safety Officer Specialist, pt stated needs a hearing test. 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
--- OUTSIDE RECORDS SUMMARY | 2025-09-21 11:42 | XMS_ITS | Encounter Summary ---
Author Organization [employer] Address [address] [place] [address] [place] [address] Care Team Providers Care Client Care Coordinator Name Role Phone Brittany Saldana MD Primary Care Provider + Darrin Hernandez Unavailable Unavailable Reason for Visit * Reason Comments Med Refill Encounter Details Date Type Department Care Team (Late st Contact Info) Description 09/19/2025 Refill [facility] [address] [place] [address] Brittany Saldana MD 230 [place] [address] Social History Tobacco Use Types Packs/Day Years [...] Description 10/30/2025 1:00 PM EST Clinical Support [address] [address] Janae Walden, CORTES 11/02/2025 11:15 AM EST Office Visit [address] [address] Brittany Saldana MD [address] [place] [address] documented as of this encounter Goals Goal Patient Goal Type Associated Problems Recent Progress Patient-Stated? Author Blood Pressure < 140/90 Blood Pressure 138/60(2024 11:10 AM EDT) No Venkatesh Skinner PharmD Decrease [...] as of this encounter Care Teams Client Care Coordinator Relationship Specialty Start Date End Date Brittany Saldana MD 230 [place] [address] PCP - General Family Medicine 05/08/20 Darrin Hernandez FNP [address] [place] [address] Nurse Practitioner Family Medicine 10/19/23 documented as of this encounter
--- OUTSIDE RECORDS SUMMARY | 2025-09-21 11:42 | XMS_ITS | Encounter Summary ---
Author Organization [employer] Address [address] [facility] 7t [place] [address] Care Team Providers Care Cattle Manager Name Role Phone Brittany Saldana MD Primary Care Provider + Darrin Hernandez Unavailable Unavailable Encounter Details Date Type Department Care Team (Latest Contact Info) Description 09/19/2025 Travel Social History Tobacco Use Types Packs/Day [...] Description 10/30/2025 1:00 PM EST Clinical Support [address] [address] Janae Walden RN 11/02/2025 11:15 AM EST Office Visit [address] [address] Brittany Saldana MD [address] [place] [address] documented as of this encounter Goals Goal [...] documented as of this encounter Care Teams Cattle Manager Relationship Specialty Start Date End Date Brittany Saldana MD [address] [place] [phone] PCP - General Family Medicine 05/08/20 Darrin Hernandez FNP [address] [place] [address] Nurse Practitioner Family Medicine 10/19/23 documented as of this encounter
--- OUTSIDE RECORDS SUMMARY | 2025-09-21 11:42 | XMS_ITS | Encounter Summary ---
Author Organization [employer] Address [address] [place] [address] [place] [address] Care Team Providers Care Drivability Technician Name Role Phone Brittany Saldana MD Primary Care Provider + Darrin Hernandez Unavailable Unavailable Reason for Visit * Reason Onset Date Comments Med Refill 05/20/2024 Encounter Details Date Type Department Care Team (Late st Contact Info) Description 05/20/2024 Refill [facility] MEDICINE [address] [place] [address] Darrin Hernandez FNP Social History Tobacco Use [...] Description 10/30/2025 1:00 PM EST Clinical Support [facility] MEDICINE [address] [place] [address] Janae Walden RN 11/02/2025 11:15 AM EST Office Visit [address] [address] Brittany Saldana MD [address] [place] [address] documented as of this encounter Goals Goal Patient Goal Type Associated Problems Recent Progress Patient-Stated? Author Blood Pressure < 140/90 Blood Pressure 138/60(2024 11:10 AM EDT) No Venkatesh Skinner, [place] Hemoglobin A1c < 7 Result Component 5(04/06/2025 9:03 AM EDT) No Venkatesh Skinner PharmD documented as of this encounter Visit Diagnoses Not on filedocumented in this encounter Additional Health Concerns Assessment Noted Time PHQ-9 Depression Total Score: 4 03/06/20 24 2:22 PM EDT documented as of this encounter Care Teams Drivability Technician Relationship Specialty Start Date End Date Brittany Saldana MD [address] [place] [address] PCP - General Family Medicine 05/08/20 Darrin Hernandez FNP [address] [place] [address] Nurse Practitioner Family Medicine 10/19/23 documented as of this encounter
--- OUTSIDE RECORDS SUMMARY | 2025-09-21 11:42 | XMS_ITS | Encounter Summary ---
Author Organization [employer] Address [address] [place] [address] [place] [address] Care Team Providers Care Horse Racetrack Manager Name Role Phone Brittany Saldana MD Primary Care Provider + Darrin Hernandez Unavailable Unavailable Reason for Visit * Reason Onset Date Comments Med Refill 04/16/2024 Encounter Details Date Type Department Care Team (Late st Contact Info) Description 04/16/2024 Refill [facility] MEDICINE 230 [place] [address] Darrin Hernandez FNP PTSD (post-traumatic stress disorder) [...] Description 10/30/2025 1:00 PM EST Clinical Support [address] [address] Janae Walden RN 11/02/2025 11:15 AM EST Office Visit [address] [address] Brittany Saldana MD [address] [place] [address] documented as of this encounter Goals Goal Patient Goal Type Associated Problems Recent Progress Patient-Stated? Author Blood Pressure < 140/90 Blood Pressure 138/60(2024 11:10 AM EDT) No Venkatesh Skinner PharmD Hemoglobin A1c < 7 Result Component 5(04/06/2025 9:03 AM EDT) No Venkatesh Skinner PharmD documented as of this encounter Visit Diagnoses Diagnosis PTSD (post-traumatic stress disorder) Posttraumatic stress disorder documented in this encounter Additional Health Concerns Assessment Noted Time PHQ-9 Depression Total Score: 4 03/06/20 24 2:22 PM EDT documented as of this encounter Care Teams Horse Racetrack Manager Relationship Specialty Start Date End Date Brittany Saldana MD [address] [place] [address] PCP - General Family Medicine 05/08/20 Darrin Hernandez FNP [address] [place] [address] Nurse Practitioner Family Medicine 10/19/23 documented as of this encounter
--- OUTSIDE RECORDS SUMMARY | 2025-09-21 11:42 | XMS_ITS | Encounter Summary ---
Author Organization [employer] Address [address] [place] [address] 7 [place] [address] Care Team Providers Care Scale Operator Name Role Phone Brittany Saldana MD Primary Care Provider + Darrin Hernandez Unavailable Unavailable Encounter Details Date Type Department Care Team (Late st Contact Info) Description 08/07/2025 Orders Only [facility] 230 [place] [address] ProviderDavid MD Social History Tobacco Use Types [...] Description 10/30/2025 1:00 PM EST Clinical Support [address] [address] Janae Walden RN 11/02/2025 11:15 AM EST Office Visit [address] [address] Brittany Saldana MD [address] [place] [phone] documented as of this encounter Goals Goal [...] Result Component 5(04/06/2025 9:03 AM EDT) No Venkatehs Skinner, Magnolia documented as of this encounter [...] documented as of this encounter Care Teams Scale Operator Relationship Specialty Start Date End Date Brittany Saldana MD [address] [place] [address] PCP - General Family Medicine 05/08/20 Darrin Hernandez FNP [address] [place] [address] Nurse Practitioner Family Medicine 10/19/23 documented as of this encounter
--- OUTSIDE RECORDS SUMMARY | 2025-09-21 11:42 | XMS_ITS | Encounter Summary ---
Author Organization [employer] Address [address] [facility] 7 [place] [address] Care Team Providers Care Brassiere Cup Mold Cutter Name Role Phone Brittany Saldana MD Primary Care Provider + Darrin Hernandez Unavailable Unavailable Encounter Details Date Type Department Care Team (Late st Contact Info) Description 09/21/2025 Orders Only GENERIC EXTERNAL DATA DEPARTMENT Provider, Generic External Data Social History Tobacco Use Types Packs/Day Years [...] Description 10/30/2025 1:00 PM EST Clinical Support [facility] MEDICINE [address] [place] [phone] Janae Walden, RN 11/02/2025 11:15 AM EST Office Visit [address] [address] Brittany Saldana MD [address] [place] [address] documented as of this encounter Goals Goal Patient Goal Type Associated Problems Recent Progress Patient-Stated? Author Blood Pressure < 140/90 Blood Pressure 138/60(2024 11:10 AM EDT) No Venkatesh Skinner, PharmHillary Decrease the frequency of unwanted emotions so that daily functioning is improved General On track( 025 4:48 PM EDT) No Janae Walden, RN Hemoglobin A1c < 7 Result Component 5(04/06/2025 9:03 AM EDT) No Venkatesh Skinner, Magn[place] documented as of this encounter Procedures Procedure Name Priority Date/Time Associated Diagnosis Comments VITAMIN D,25-OH,TOTAL,IA Routine 09/21/2025 10:10 AM EST VITAMIN B12/FOLATE, SERUM PANEL Routine 09/21/2025 10:10 AM EST CBC WITH AUTO DIFFERENTIAL Routine 09/21/2025 10:10 AM EST IRON AND TOTAL IRON BINDING CAPACITY Routine 09/21/2025 10:10 AM EST C-REACTIVE PROTEIN Routine 09/21/2025 10 :10 AM EST FERRITIN Routine 09/21/2025 10:10 AM EST documented in this encounter Results * (ABNORMAL) Vitamin B12 (Cobalamin) and Folate Panel, Serum (09/21/2025 10:10 AM EST) Vitamin B12 1,101(H) 200 - 900 pg/mL [facility] Comment:NORMAL 200-900 PG/ML INDETERMINATE 160-199 PG/ML DEFICIENT < 160 PG/ML Folate 13.5 > or = 4.0 ng/mL [facility] Comment:Reference Values:> o r = 4.0 ng/mL< 4.0 ng/mL suggests folate deficiency Methotrexate, aminopterin and folinic acid(leucovorin) are chemotherapeutic agents whose molecularstructures are similar to folate; therefore, the Architectfolate assay cannot be used for patients using these drugs. 09/21/2025 10:1 0 AM EST 09/21/2025 10:13 AM EST us Generic External Data Provider LAB BLOOD ORDERAB LES Final Result [facility] [address] [place] [phone] * Vitamin D, 25-Hydroxy, Total, Immunoassay (09/21/2025 10:10 AM EST) Vitamin D 25-OH Total 44.2 >30 ng/mL [facility] Comment: Health Based Reference Values*< 20 ng/mL Igafcfxex68-51 ng/mL Insufficient> 30 ng/mL Sufficient*Mervat YU. N Engl J Med. 2007;357:266-280There is no well-established upper level of normal vitamin Dlevels. Some laboratories use 50 ng/mL as an upper limit ofnormal. However, toxicity is patient-dependent and may occurat any level. Careful correlation with the patient'spresentation is necessary and, if there is concern forvitamin D toxicity, treatment should be consideredirrespective of the serum level.Care must be taken in interpreting Vitamin D results fromdifferent laboratories and methodologies. Published datademonstrated that results from patients undergoinghemodialysis may show a negative bias when tested withvarious automated 25-OH vitamin D assays when compared toLC-MS/MS.When testing samples from patients whose predominant form ofVitamin D is Vitamin D2, such as patients receiving VitaminD2 supplementation, results that are subtherapeutic shouldbe confirmed with another method such as LC-MS/MS. 09/21/2025 10:1 0 AM EST 09/21/2025 10:13 AM EST Generic External Data Provider LAB BLOOD ORDERAB LES Final Result Performing Organization Address [facility] Co de Phone Number [facility] [address] [place] [phone] * Ferritin (09/21/2025 10:10 AM EST) Ferritin 115 20 - 250 ng/mL [facility] 09/21/2025 10:1 0 AM EST 09/21/2025 10:13 AM EST Generic External Data Provider LAB BLOOD ORDERAB LES Final Result Performing Organization Address [facility] Co de Phone Number [facility] [address] [place] [phone] * C-reactive Protein (09/21/2025 10:10 AM EST) C Reactive Protein <0.10 < or = 0.50 mg/dL [facility] 09/21/2025 10:1 0 AM EST 09/21/2025 10:13 AM EST us Generic External Data Provider LAB BLOOD ORDERAB LES Final Result Performing Organization Address [facility] de Phone Number [facility] [address] [place] [phone] * (ABNORMAL) Iron And Total Iron Binding Capacity (09/21/2025 10:10 AM EST) [facility] Iron 108 45 - 160 mcg/dL [facility] Total Iron Binding Capacity 216(L) 228 - 428 mcg/dL [facility] Percent Iron Saturation 50 15 - 50 % [facility] Unsaturated Iron Binding 108 ug/dL [facility] 09/21/2025 10:1 0 AM EST 09/21/2025 10:13 AM EST us Generic External Data Provider LAB BLOOD ORDERAB LES Final Result Performing Organization Address [facility] de Phone Number [facility] [address] [place] [phone] * (ABNORMAL) CBC auto differential (09/21/2025 10:10 AM EST) [facility] White Blood Count 9.0 4.8 - 10.8 X10*3/uL [facility] Red Blood Count 4.06(L) 4.60 - 5.80 X10*6/uL [facility] Hemoglobin 12.5(L) 14.0 - 18.0 g/dl [facility] Hematocrit 38.0(L) 42.0 - 52.0 % [facility] Mean Corpuscular Volume 93.6 80.0 - 98.0 fL [facility] Mean Corpuscular Hemoglobin 30.8 27.0 - 33.0 pg [facility] Mean Corpuscular HGB Conc 32.9 31.0 - 36.0 g/dl [facility] Red Cell Distribution Width 13.0 11.0 - 16.0 % [facility] Platelet Count 220 160 - 400 X10*3/uL [facility] Mean Platelet Volume 9.3(L) 9.4 - 12.4 fL [facility] Neutrophils Percent Auto 72.9 45 - 73 % [facility] Imm Gran Pct Auto 0.4 0.0 - 0.4 % [facility] Lymphocytes Percent Auto 16.9(L) 20 - 40 % [facility] Monocytes Percent Auto 7.4 2 - 11 % [facility] Eosinophils Percent Auto 1.7 0 - 4 % [facility] Basophils Percent Auto 0.7 0 - 2 % [facility] NRBC Pct Auto 0.0 0.0 - 0.2 /100WBC [facility] Neutrophils Absolute Auto 6.5 2.0 - 8.3 x10*3/uL [facility] Imm Gran Abs Auto 0.04(H) 0.00 - 0.03 X10*3/uL [facility] Lymphocytes Absolute Auto 1.5 1.2 - 4.9 X10*3/uL [facility] Monocytes Absolute Auto 0.7 0.1 - 1.2 X10*3/uL [facility] Eosinophils Absolute Auto 0.2 0.0 - 0.4 X10*3/uL [facility] Basophils Absolute Auto 0.1 0.0 - 0.2 X10*3/uL [facility] NRBC Abs Auto 0.000 0.0 - 0.012 X10*3/uL [facility] 09/21/2025 10:1 0 AM EST 09/21/2025 10:13 AM EST us Generic External Data Provider LAB BLOOD ORDERAB LES Final Result [facility] [address] [place] [phone] [phone] documented in this encounter Visit Diagnoses Not on filedocumented in this encounter Additional Health Concerns Assessment Noted Time PHQ-9 Depression Total Score: 8 08/22/20 25 11:20 AM EDT documented as of this encounter Care Teams Brassiere Cup Mold Cutter Relationship Specialty Start Date End Date Brittany Saldana MD [address] [place] [address] PCP - General Family Medicine 05/08/20 Darrin Hernandez FNP [address] [place] [phone] Nurse Practitioner Family Medicine 10/19/23 documented as of this encounter
--- OUTSIDE RECORDS SUMMARY | 2025-09-21 11:42 | XMS_ITS | Encounter Summary ---
Author Organization [employer] Address [address] [place] [address] Care Team Providers Care Microfilmer Name Role Phone Brittany Saldana MD Primary Care Provider + Darrin Hernandez Unavailable Unavailable Reason for Visit * Reason Onset Date Comments Med Refill 06/11/2024 Encounter Details Date Type Department Care Team (Late st Contact Info) Description 06/11/[address] [facility] [address] [place] [address] Brittany Saldana MD [address] [place] [address] Social History Tobacco Use Types Packs/Day Years [...] Description 10/30/2025 1:00 PM EST Clinical Support [facility] [address] [place] [address] Janae Walden RN 11/02/2025 11:15 AM EST Office Visit [facility] [address] [place] [address] Brittany Saldana MD [address] [place] [address] documented as of this encounter Goals Goal [...] documented as of this encounter Care Teams Microfilmer Relationship Specialty Start Date End Date Brittany Saldana MD [address] [place] [address] PCP - General Family Medicine 05/08/20 Darrin Hernandez FNP [address] [place] [address] Nurse Practitioner Family Medicine 10/19/23 documented as of this encounter
--- OUTSIDE RECORDS SUMMARY | 2025-09-21 11:42 | XMS_ITS | Encounter Summary ---
Author Organization [employer] Address [address] [facility] 7 [place] [address] Care Team Providers Care Software Sales Representative Name Role Phone Brittany Saldana MD Primary Care Provider + Darrin Hernandez Unavailable Unavailable Reason for Visit * Reason Comments [facility] Encounter Details Date Type Department Care Team (Late st Contact Info) Description 09/18/2025 Patient Outreach [facility] [address] [place] [address] [facility] Social History Tobacco [...] encounter Progress Notes * Ted Olvera - 09/18/2025 4:55 PM EST I met with Dane today. Setting: in person at [facility] Wellness Goals worked on: Physical Health/Mental Health Social Stability Spiritual Wellness Action taken/next steps: Attended recovery support group Contingency management Additional comments: Ted Olvera documented in this encounter Plan of Treatment Upcoming Encounters Date Type Department Care Team (Late st Contact Info) Description 10/30/2025 1:00 PM EST Clinical Support [facility] [address] [place] [address] Janae Walden RN 11/02/2025 11:15 AM EST Office Visit [facility] [address] [place] [address] Brittany Saldana MD [address] [place] [address] documented as of this encounter Goals Goal Patient Goal Type Associated Problems Recent Progress Patient-Stated? Author Blood Pressure < 140/90 Blood Pressure 138/60(2024 11:10 AM EDT) No Venkatesh Skinner, PharmD Decrease [...] as of this encounter Care Teams Software Sales Representative Relationship Specialty Start Date End Date Brittany Saldana MD 230 [place] [address] PCP - General Family Medicine 05/08/20 Darrin Hernandez FNP [address] [place] [address] Nurse Practitioner Family Medicine 10/19/23 documented as of this encounter
--- OUTSIDE RECORDS SUMMARY | 2025-09-21 11:42 | XMS_ITS | Clinical Summary ---
Author Organization [facility] Address [address] [place] [address] Care Team Providers Care Helicopter Utility Aircrewman Name Role Phone Selvin Payan MD Primary Care Provider [phone] Allergies Active Allergy Reactions Criticality Noted Date [...] age to complete this topic Care Teams Helicopter Utility Aircrewman Relationship Specialty Start Date End Date Selvin Payan MD [address] [place] [address] PCP - General Internal Medicine 03/08/18
--- OUTSIDE RECORDS SUMMARY | 2025-09-21 11:42 | XMS_ITS | Encounter Summary ---
Author Organization [employer] Address [address] [place] [address] 7 [place] [address] Care Team Providers Care Stone Gang Sawyer Name Role Phone Brittany Saldana MD Primary Care Provider + Darrin Hernandez Unavailable Unavailable Reason for Visit * Reason Comments Med Refill Encounter Details Date Type Department Care Team (Late st Contact Info) Description 04/21/[address] [facility] [address] [place] [address] Brittany Saldana MD [address] [place] [address] Mild intermittent asthma without complication Social History [...] Description 10/30/2025 1:00 PM EST Clinical Support [facility] [address] [place] [address] Janae Walden RN 11/02/2025 11:15 AM EST Office Visit [address] [address] Brittany Saldana MD [address] [place] [address] documented as of this encounter Goals Goal [...] as of this encounter Care Teams Stone Gang Sawyer Relationship Specialty Start Date End Date Brittany Saldana MD [address] [place] [address] PCP - General Family Medicine 05/08/20 Darrin Hernandez FNP [address] [place] [address] Nurse Practitioner Family Medicine 10/19/23 documented as of this encounter
--- OUTSIDE RECORDS SUMMARY | 2025-09-21 11:42 | XMS_ITS | Patient Health Record ---
Author Organization [employer] Address [address] [facility] [address] [place] [address] Support Name Relationship Address Phone Dane Calles Guarantor Unknown [phone] Allergies Allergen (clinical drug ingredient) Drug/Non Drug [...] Disorder due to type 2 diabetes mellitus (911620221) Type 2 diabetes mellitus with unspecified complications (E11.8) Active confirmed Problem Morbid obesity (disorder) (639702660) Morbid (severe) obesity due to excess calories (E66.01) Active confirmed Problem Mixed hyperlipidemia (123961371) Mixed hyperlipidemia (E78.2) Active confirmed Problem Alcohol dependence (25763991) Alcohol dependence, uncomplicated (F10.20) Active confirmed Problem Mild recurrent major depression (92804786) Major depressive disorder, recurrent, mild (F33.0) Active confirmed Problem 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, intractable, 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) Active confirmed Problem 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, intractable, without status epilepticus (G40.219) Active confirmed Problem Obstructive sleep apnea syndrome (disorder) (10088633) Obstructive sleep apnea (adult) (pediatric) (G47.33) Active confirmed Problem Essential hypertension (84304880) Essential (primary) hypertension (I10) Active confirmed Problem Gastro-esophageal reflux disease without esophagitis (417896002) Gastro-esophageal reflux disease without esophagitis (K21.9) Active confirmed Problem Neurofibromatosis (51210304) Neurofibromatosis , 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) Active confirmed Problem Somnolence (48677192) Somnolence (R40.0) Active confirmed Problem Attention deficit hyperactivity disorder, predominantly inattentive type (disorder) (20420834) Attention and concentration deficit (R41.840) Active confirmed Problem Body mass index 40+ - severely obese (102318936) Body mass index (BMI) 40.0-44.9, adult (Z68.41) Active confirmed Problem Lower urinary tract symptoms due to benign prostatic hypertrophy (36180484596583) Benign prostatic hyperplasia with lower urinary tract symptoms (N40.1) Active confirmed Problem Morbid obesity (746017115) Morbid obesity (E66.01) Active confirmed Plan Of Treatment No Information Medical (General) History Medical History History ICD Code hypertension, benign acid reflux BPH see Urology Attention deficit disorder Neurofibromatosis complex partial seizure disorder Surgical History Surgery Date(Month/Year) Umblical hernia repair 2004 Tonsellectomy Cyst in throat removed
--- OUTSIDE RECORDS SUMMARY | 2025-09-21 11:42 | XMS_ITS | Encounter Summary ---
Author Organization [email or web address] Address [address] [place] [address] [place] [address] Care Team Providers Care Near East Archeology Professor Name Role Phone Brittany Saldana MD Primary Care Provider + Darrin Hernandez Unavailable Unavailable Reason for Visit * Reason Comments Med Refill Encounter Details Date Type Department Care Team (Late st Contact Info) Description 06/03/2023 Refill [facility] [address] [place] [address] Darrin Hernandez FNP Depression, unspecified depression type [...] Description 10/30/2025 1:00 PM EST Clinical Support [address] [address] Janae Walden, RN 11/02/2025 11:15 AM EST Office Visit [address] [address] Brittany Saldana MD [address] [place] [address] documented as of this encounter Visit Diagnoses Diagnosis Depression, unspecified depression type documented in this encounter Additional Health Concerns Assessment Noted Time PHQ-9 Depression Total Score: 11 023 10:47 AM EDT documented as of this encounter Care Teams Near East Archeology Professor Relationship Specialty Start Date End Date Brittany Saldana MD [address] [place] [address] PCP - General Family Medicine 05/08/20 Darrin Hernandez FNP [address] [place] [address] Nurse Practitioner Family Medicine 10/19/23 documented as of this encounter
--- OUTSIDE RECORDS SUMMARY | 2025-09-21 11:42 | XMS_ITS | Encounter Summary ---
Author Organization [employer] Address [address] [place] [address] [place] [address] Care Team Providers Care Forming Roll Operator Name Role Phone Brittany Saldana MD Primary Care Provider + Darrin Hernandez Unavailable Unavailable Reason for Visit * Reason Onset Date Comments Med Refill 06/19/2024 Encounter Details Date Type Department Care Team (Late st Contact Info) Description 06/19/[address] [facility] [address] [place] [address] Brittany Saldana MD [address] [place] [address] Alcoholism (CMS/HCC); Essential (primary) hypertension Social History [...] PM EST Clinical Support [facility] [address] [place] [address] Janae Walden RN 11/02/2025 11:15 AM EST Office Visit [facility] [address] [place] [address] Brittany Saldana MD [address] [place] [address] documented as of this encounter Goals Goal [...] documented as of this encounter Care Teams Forming Roll Operator Relationship Specialty Start Date End Date Brittany Saldana MD [address] [place] [address] PCP - General Family Medicine 05/08/20 Darrin Hernandez FNP [address] [place] [address] Nurse Practitioner Family Medicine 10/19/23 documented as of this encounter
--- OUTSIDE RECORDS SUMMARY | 2025-09-21 11:42 | XMS_ITS | Encounter Summary ---
Author Organization [employer] Address [address] [place] [address] Care Team Providers Care Merchandise Flow Team Leader Name Role Phone Brittany Saldana MD Primary Care Provider + Darrin Hernandez Unavailable Unavailable Reason for Visit * Reason Onset Date Comments r/s appt 12/24/2022 Encounter Details Date Type Department Care Team (Late st Contact Info) Description 12/24/2022 Telephone [facility] [address] [place] [address] Brittany Saldana MD [address] [place] [address] r/s appt Social History Tobacco Use Types [...] states his ride was not there ontime. Candles Pourer tried booking but December [employer]ender was full. Please contact pt at [phone] documented in this encounter Plan of Treatment Upcoming Encounters Date Type Department Care Team (Late st Contact Info) Description 10/30/2025 1:00 PM EST Clinical Support [address] [address] Janae Walden RN 11/02/2025 11:15 AM EST Office Visit [address] [address] Brittany Saldana MD [address] [place] [address] documented as of this encounter Visit Diagnoses Not on filedocumented in this encounter Additional Health Concerns Assessment Noted Time PHQ-9 Depression Total Score: 9 11/05/20 22 9:37 AM EST documented as of this encounter Care Teams Merchandise Flow Team Leader Relationship Specialty Start Date End Date Brittany Saldana MD [address] [place] [address] PCP - General Family Medicine 05/08/20 Darrin Hernandez FNP [address] [place] [address] Nurse Practitioner Family Medicine 10/19/23 documented as of this encounter
--- OUTSIDE RECORDS SUMMARY | 2025-09-21 11:42 | XMS_ITS | Encounter Summary ---
Author Organization [employer] Address [address] [place] [address] [place] [address] Care Team Providers Care Client Care Consultant Name Role Phone Brittany Saldana MD Primary Care Provider + Darrin Hernandez Unavailable Unavailable Reason for Visit * Reason Onset Date Comments Med Refill 06/15/2024 Encounter Details Date Type Department Care Team (Late st Contact Info) Description 06/15/2024 Refill [facility] 230 [place] [address] Brittany Saldana MD [address] [place] [address] Acute insomnia Social History Tobacco Use Types [...] the past 12 months, has t he [employer], gas, oil or water company threatened to [...] EST Clinical Support [facility] [address] [place] [address] Janae Walden RN 11/02/2025 11:15 AM EST Office Visit [facility] [address] [place] [address] Brittany Saldana MD [address] [place] [address] documented as of this encounter Goals Goal [...] of this encounter Care Teams Client Care Consultant Relationship Specialty Start Date End Date Brittany Saldana MD [address] [place] [address] PCP - General Family Medicine 05/08/20 Darrin Hernandez FNP [address] [place] [address] Nurse Practitioner Family Medicine 10/19/23 documented as of this encounter
--- OUTSIDE RECORDS SUMMARY | 2025-09-21 11:43 | XMS_ITS | Data Portability ---
Author Organization [place] [facility] Address [address] [address] Care Team Providers Care Biscuit Maker Name Role Phone AGUEDA ROUSSEAU Referring Provider [...] recorded. Referral vestibular therapy [facility] 2024 [facility] [place], [address] [place] [address], [place], [address], 5 10:49:53 Procedures None recorded. Surgeries None [...] Organization Details Recorded Time Mass of neck 240127401 Active 2018 Localized swelling, mass and lump, neck; Note: Date Diagnosed : 9 3:24 PM (R22.1) Not Available [facility] 4 03:19:11 Neck swelling 493602059 Active 2018 Localized swelling, mass and lump, neck; Note: Date Diagnosed : 9 3:24 PM (R22.1) Not Available [facility] 4 03:19:11 Neurofibr omatosis syndrome 94824660 Active 2018 Neurofibr omatosis, unspecifi ed; Note: Date Diagnosed : 9 3:24 PM (Q85.00) Not Available [facility] 4 03:19:10 Impacted cerumen of bilateral ears 91999630042 14442 Active 2018 Impacted cerumen, bilateral ; Note: Date Diagnosed : 9 3:23 PM (H61.23) Not Available [facility] 4 03:19:10 Sensorine ural hearing loss of bilateral ears 125550173 Active 2018 Sensorine ural hearing loss, bilateral ; Note: Date Diagnosed : 9 10:13 AM (H90.3) Not Available [facility] 4 03:19:11 Follow-up visit Active 2019 Encounter for follow-up examinati on after completed treatment for condition s other than malignant neoplasm; Note: Date Diagnosed : 12/22/2019 11:28 AM (Z09) Not Available [facility] 4 03:19:10 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 Procedures Surgical History Date Name Laterality Status Provider Name and Address Organization Details Recorded Time 06/06/2025 Comp Audio with Tymps - 03079 & 16427 completed ROD RICH [address] [facility],[place] [address], [place], [address], [facility] [place] 06/06/2025 09:54:56 Imaging Results None recorded. Procedure Notes None recorded. Medical Equipment None Reported. Allergies Allergen ID Allergen Name Allergen Category Reaction Reaction Severity Criticality Documentation Date Start Date Code Code System Note Provider Name and Address Organization Details Recorded Time 399912 penicilli n V potassium medicatio n other Not available Not available 03/28/2024 5 RxNorm React ion: unkno wn, unspe cifie d;; Not Available [facility] 4 01:25:46 Medications Name Sig Start Date Stop Date Status Note LastModified by Organization Details LastModified Time metformin 500 mg tablet 2019 active Medicati on ID: 345763 D uration Value: 90 Brand Name: metformi [...] 24 hr 2018 active Medicati on ID: 213893 D uration Value: 90 Brand Name: felodipi ne Send Method: E-Prescr ibed Sub s Allowed: subs OK Speci al Instruct ion: TK 1 T PO QD Medic ationGen ericName : felodipi ne Not Available Not Available Not Available omeprazol e 40 mg capsule,d elayed release 06/06 completed Medicati on ID: [id number] D uration Value: 90 Brand Name: omeprazo le Send Method: E-Prescr ibed Sub s Allowed: subs [place] Speci al Instruct ion: TAKE ONE CAPSULE BY MOUTH EVERY DAY [facility] nericNam e: omeprazo le Not Available Not Available Not Available ketorolac 0.5 % eye drops INSTILL 1 DROP AFFECTED EYE(S) THREE TIMES DAILY STARTING 2 DAYS BEFORE SURGERY active Not Available Not Available No t Available tamsulosi n 0.4 mg capsule 2018 active Medicati on ID: [id number] D uration Value: 90 Brand Name: tamsulos [...] mg tablet 06/06 completed Medicati on ID: 450953 D uration Value: 30 Brand Name: dextroam [...] mg tablet 2018 active Medicati on ID: [id number] D uration Value: 90 Brand Name: lisinopr il Send Method: E-Prescr ibed Sub s Allowed: subs OK Melaniei al Instruct ion: TK 1 T PO QD [facility] eric[facility] : lisinopr il Not Available Not [...] aerosol inhaler 2018 active Medicati on ID: [id number] D uration Value: 50 Brand Name: ProAir [...] unit) capsule 06/06 completed Medicati on ID: [id number] D uration Value: 90 Brand Name: cholecal [...] Updated DateTime 06/06/2025 160.02 cm 24.8 kg/m2 20732.93 g Stephanie Velázquez [place] [facility] 06/06/2025 10:05:26 Social History None recorded. Functional Status None recorded. Mental Status None recorded. Family History Nothing Reported. Medical History Condition Response Heart Problems Arthritis Y Anxiety Y Hypertension Y Asthma Y Past Encounters Encounter ID Performer Location Encounter Start Date Encounter Closed Date Diagnosis/Indication Diagnosis SNOMED-CT Code Diagnosis ICD10 Code Diagnosis IMO Codes Diagnosis Note [id number] MAXIMO ROBINS PA-C [facility] [address] [address] 06/06/2025 09:23:34 06/06/2025 12:24:03 Sensorineural hearing loss of bilateral ears 891462784 H90.3 Audiologic al evaluation results: Right ear: Normal sloping to severe sensorineu ral hearing loss with very good word recognitio n. Left ear: Normal through 2 kHz sloping to severe sensorineu ral hearing loss with excellent word recognitio n. Tympanomet ry: Right Ear:Type A Left Ear:Type A Bilateral tinnitus 79126 600[address] 102 H93.13 799331 Vertigo 573709769 R42 01443 Health Concerns Section Related Observation LastModified by Organization Detai ls LastModified Time None Recorded Concern Status LastModified by Organization Details LastModified Time None Recorded Advance Directives Directive None Recorded Payers Insurance Date Sequence Insurance Name Policy Number Policy Velasco Covered Member ID Velasco Member ID Guarantor Name 06/06/2025 1 [facility] Dane Calles [id number] Dane Calles 08/06/2025 1 [facility] - DOS ON OR AFTER 2023 - MEDICARE [place]VANTAGE [place] (MEDICARE REPLACEMENT/AD VANTAGE - PPO) Dane Calles [id number] Dane Calles 08/06/2025 2 [place]: [facility] Dane Calles [id number] Dane Calles Notes Date Note Type Note [...] excision with Dr. Vasquez. MAXIMO ROBINS PA-C [address] [place] [address], [place], [address], [facility] - [facility] 06/06/2025 12:11:20
--- OUTSIDE RECORDS SUMMARY | 2025-09-21 11:43 | XMS_ITS | Encounter Summary ---
Author Organization [employer] Address [address] [place] [address] [place] [address] Care Team Providers Care Food Order Expediter Name Role Phone Brittany Saldana MD Primary Care Provider + Darrin Hernandez Unavailable Unavailable Reason for Visit * Reason Onset Date Comments Med Refill 08/11/2024 Encounter Details Date Type Department Care Team (Late st Contact Info) Description 08/11/2024 Refill [facility] MEDICINE [address] [place] [address] Brittany Saldana MD [address] [place] [address] Mild intermittent asthma without complication Social History [...] the past 12 months, has t he [employer], gas, oil or water company threatened to [...] Description 10/30/2025 1:00 PM EST Clinical Support [facility]INE [address] [place] [address] Janae Walden RN 11/02/2025 11:15 AM EST Office Visit [facility] [address] [place] [address] Brittany Saldnaa MD [address] [place] [address] documented as of this encounter Goals Goal [...] as of this encounter Care Teams Food Order Expediter Relationship Specialty Start Date End Date Brittany Saldana MD [address] [place] [address] PCP - General Family Medicine 05/08/20 Darrin Hernandez FNP [address] [place] [address] Nurse Practitioner Family Medicine 10/19/23 documented as of this encounter
--- OUTSIDE RECORDS SUMMARY | 2025-09-21 11:43 | XMS_ITS | Encounter Summary ---
Author Organization [employer] Address [address] [place] [address] [place] [address] Care Team Providers Care Regional Planner Name Role Phone Brittany Saldana MD Primary Care Provider + Darrin Hernandez Unavailable Unavailable Reason for Visit * Reason Onset Date Comments Med Refill 08/03/2024 Encounter Details Date Type Department Care Team (Late st Contact Info) Description 08/03/2024 Refill [facility]INE [address] [place] [address] [facility] [address] [place] [address] Mild intermittent asthma without complication Social History [...] the past 12 months, has t he [employer], gas, oil or water company threatened to [...] Description 10/30/2025 1:00 PM EST Clinical Support [facility] [address] [place] [address] Janae Walden RN 11/02/2025 11:15 AM EST Office Visit [facility] [address] [place] [address] Brittany Saldana MD [address] [place] [address] documented as of this encounter Goals Goal [...] as of this encounter Care Teams Regional Planner Relationship Specialty Start Date End Date Brittany Saldana MD 230 [place] [address] PCP - General Family Medicine 05/08/20 Darrin Hernandez FNP [address] [place] [address] Nurse Practitioner Family Medicine 10/19/23 documented as of this encounter
--- OUTSIDE RECORDS SUMMARY | 2025-09-21 11:43 | XMS_ITS | Encounter Summary ---
Author Organization [employer] Address [address] [place] [address] [place] [address] Care Team Providers Care Finish Machine Tender Name Role Phone Brittany Saldana MD Primary Care Provider + Darrin Hernandez Unavailable Unavailable Reason for Visit * Reason Comments Med Refill Encounter Details Date Type Department Care Team (Late st Contact Info) Description 03/15/2023 Refill [facility] [address] [place] [address] Brittany Saldana MD [address] [place] [address] Primary hypertension Social History Tobacco Use Types [...] Description 10/30/2025 1:00 PM EST Clinical Support [address] [address] Janae Walden, RN 11/02/2025 11:15 AM EST Office Visit [address] [address] Brittany Saldana MD [address] [place] [address] documented as of this encounter Visit Diagnoses Diagnosis Primary hypertension Unspecified essential hypertension documented in this encounter Additional Health Concerns Assessment Noted Time PHQ-9 Depression Total Score: 10 023 10:47 AM EDT documented as of this encounter Care Teams Finish Machine Tender Relationship Specialty Start Date End Date Brittany Saldana MD [address] [place] [address] PCP - General Family Medicine 05/08/20 Darrin Hernandez FNP [address] [place] [address] Nurse Practitioner Family Medicine 10/19/23 documented as of this encounter
--- OUTSIDE RECORDS SUMMARY | 2025-09-21 11:43 | XMS_ITS | Encounter Summary ---
Author Organization [employer] Address [address] [facility] 7 [place] [address] Care Team Providers Care Die Cutter Apprentice Name Role Phone Brittany Saldana MD Primary Care Provider + Darrin Hernandez Unavailable Unavailable Encounter Details Date Type Department Care Team (Late st Contact Info) Description 10/10/[address] [facility] MEDICINE [address] [place] [address] Brittany Saldana MD [address] [place] [address] Social History Tobacco Use Types Packs/Day Years [...] Support [facility] [address] [place] [address] Janae Walden RN 11/02/2025 11:15 AM EST Office Visit [address] [address] Brittany Saldana MD [address] [place] [phone] documented as of this encounter Goals Goal [...] as of this encounter Care Teams Die Cutter Apprentice Relationship Specialty Start Date End Date Brittany Saldana MD [address] [place] [address] [place] [address] PCP - General Family Medicine 05/08/20 Darrin Hernandez FNP [address] [place] [address] Nurse Practitioner Family Medicine 10/19/23 documented as of this encounter
--- OUTSIDE RECORDS SUMMARY | 2025-09-21 11:43 | XMS_ITS | Encounter Summary ---
Author Organization [employer] Address [address] [place] [address] Care Team Providers Care Heating And Blending Supervisor Name Role Phone Brittany Saldana MD Primary Care Provider + Darrin Hernandez Unavailable Unavailable Reason for Visit * Reason Onset Date Comments Durable Medical Equipment 02/17/2023 Encounter Details Date Type Department Care Team (Late st Contact Info) Description 02/17/2023 Telephone [facility] MEDICINE [address] [place] [address] Brittany Saldana MD [address] [place] [address] Durable Medical Equipment Social History Tobacco Use [...] . Any questions please contact pt at [phone]. documented in this encounter Plan of Treatment Upcoming Encounters Date Type Department Care Team (Late st Contact Info) Description 10/30/2025 1:00 PM EST Clinical Support [address] [address] Janae Walden, CORTES 11/02/2025 11:15 AM EST Office Visit [facility] [address] [place] [address] Brittany Saldana MD [address] [place] [address] documented as of this encounter Visit Diagnoses Not on filedocumented in this encounter Additional Health Concerns Assessment Noted Time PHQ-9 Depression Total Score: 10 02/11/ 023 10:47 AM EDT documented as of this encounter Care Teams Heating And Blending Supervisor Relationship Specialty Start Date End Date Brittany Saldana MD [address] [place] [address] PCP - General Family Medicine 05/08/20 Darrin Hernandez FNP [address] [place] [address] Nurse Practitioner Family Medicine 10/19/23 documented as of this encounter
--- OUTSIDE RECORDS SUMMARY | 2025-09-21 11:43 | XMS_ITS | Encounter Summary ---
Author Organization [employer] Address [address] [place] [address] [place] [address] Care Team Providers Care Cattle Care Worker Name Role Phone Brittany Saldana MD Primary Care Provider + Darrin Hernandez Unavailable Unavailable Reason for Visit * Reason Onset Date Comments Med Refill 08/03/2024 Encounter Details Date Type Department Care Team (Late st Contact Info) Description 08/03/2024 Refill [facility] [address] [place] [address] Brandon Caballero MD [address] [place] [address] Type 2 diabetes mellitus without complication, without long-term current use of insulin ([facility]) Social History [...] Description 10/30/2025 1:00 PM EST Clinical Support [facility]INE [address] [place] [address] Janae Walden RN 11/02/2025 11:15 AM EST Office Visit [facility] [address] [place] [address] Brittany Saldana MD [address] [place] [phone] documented as of this encounter Goals Goal [...] as of this encounter Care Teams Cattle Care Worker Relationship Specialty Start Date End Date Brittany Saldana MD [address] [place] [address] PCP - General Family Medicine 05/08/20 Darrin Hernandez FNP [address] [place] [address] Nurse Practitioner Family Medicine 10/19/23 documented as of this encounter
--- OUTSIDE RECORDS SUMMARY | 2025-09-21 11:43 | XMS_ITS | Encounter Summary ---
Author Organization [employer] Address [address] [place] [address] Care Team Providers Care Assembler Dielectric Heater Name Role Phone Brittany Saldana MD Primary Care Provider + Darrin Hernandez Unavailable Unavailable Reason for Visit * Reason Onset Date Comments Med Refill 01/09/2025 Encounter Details Date Type Department Care Team (Late st Contact Info) Description 01/09/2025 Refill [facility] [address] [place] [address] Brittany Saldana MD [address] [place] [address] Social History Tobacco Use Types Packs/Day Years [...] Description 10/30/2025 1:00 PM EST Clinical Support [facility] [address] [place] [address] Janae Walden RN 11/02/2025 11:15 AM EST Office Visit [facility] [address] [place] [address] Brittany Saldana MD [address] [place] [address] documented as of this encounter Goals Goal [...] as of this encounter Care Teams Assembler Dielectric Heater Relationship Specialty Start Date End Date Brittany Saldana MD [address] [place] [address] PCP - General Family Medicine 05/08/20 Darrin Hernandez FNP [address] [place] [address] Nurse Practitioner Family Medicine 10/19/23 documented as of this encounter
--- OUTSIDE RECORDS SUMMARY | 2025-09-21 11:43 | XMS_ITS | Clinical Summary ---
Author Organization [address] [facility] Address [address] [place] [address] Phone Care Team Providers Care General Education Professor Name Role Phone Brittany Saldana MD Primary Care Provider + [phone] Allergies Active Allergy Reactions Criticality Noted Date [...] wi th underlying disease (CMS/[facility] V24) 12/07/2024 Recurrent major depressive d isorder, in partial remission ([facility] V24) 12/07/2024 Neurofibroma of upper extremity 09/22/2024 Vertigo 07/26/2024 Fall (on) (from) other stairs and steps, initial encounter 06/29/2024 Bradycardia 03/21/2024 Arthritis of both hands 11/18/2023 Chronic fatigue 06/03/2023 Erectile dysfunction 06/03/2023 Iliopsoas bursitis of left hip 06/03/2023 Type 2 diabetes mellitus wit hout complication, without long-term current use of insulin ([facility] V24, [facility] V28) 02/08/2023 Varicose veins of bilateral [...] EDT Office Visit [facility] 175 [facility] [address] [place] [address] Sena Mobley MD Nocturnal hypoglycemia (Primary Dx) 07/31/2025 3:58 PM EDT - 07/31/2025 11:59 PM EDT Hospital Encounter [facility] CT Scan [address] [place] [id number] Pulmonary nodule Discharge Disposition: Home or Self Care 07/03/2025 10:30 AM EDT Office Visit [facility] [address] [phone] Sena Mobley MD Pulmonary nodule (Primary Dx); [...] Signed Date: 08/03/2025 12:05 ET Workstation ID: [id number] Transcribed By: Self Edit Transcribed Date: 08/03/2025 [...] Signed Date: 08/03/2025 12:05 ET Workstation ID: [id number] Transcribed By: Self Edit Transcribed Date: 08/03/2025 11:58 ET Sena Mobley MD IMG CT PROCEDURES Final Resu lt from Last 3 Months Insurance [employer] MEDICARE Member Subscriber Plan / Payer (Ef fective 2023-Present) Name:Dane Calles Relation to Subscriber:Self Name:Dane Calles Payer ID:[id number] Group ID:[id number] Type:Not on file Address: [address] [place] [id number] Care Teams General Education Professor Relationship Specialty Start Date End Date Brittany Saldana MD [address] [place] [phone] PCP - General Internal Medicine 07/05/25
--- OUTSIDE RECORDS SUMMARY | 2025-09-21 11:43 | XMS_ITS | Encounter Summary ---
Author Organization [employer] Address [address] [place] [address] 7 [place] [address] Care Team Providers Care Ferryboat Captain Name Role Phone Brittany Saldana MD Primary Care Provider + Darrin Hernandez Unavailable Unavailable Reason for Visit * Reason Onset Date Comments Med Refill 02/08/2024 Encounter Details Date Type Department Care Team (Late st Contact Info) Description 02/08/[address] [facility] [address] [place] [address] Brittany Saldana MD [address] [place] [address] Social History Tobacco Use Types Packs/Day Years [...] Support [facility] [address] [place] [address] Janae Walden RN 11/02/2025 11:15 AM EST Office Visit [facility] [address] [place] [address] Brittany Saldana MD [address] [place] [address] documented as of this encounter Visit Diagnoses Not on filedocumented in this encounter Additional Health Concerns Assessment Noted Time PHQ-9 Depression Total Score: 1 12/27/19 24 1:53 PM EST documented as of this encounter Care Teams Ferryboat Captain Relationship Specialty Start Date End Date Brittany Saldana MD [address] [place] [address] PCP - General Family Medicine 05/08/20 Darrin Hernandez FNP [address] [place] [address] Nurse Practitioner Family Medicine 10/19/23 documented as of this encounter
--- OUTSIDE RECORDS SUMMARY | 2025-09-21 11:43 | XMS_ITS | Encounter Summary ---
Author Organization [employer] Address [address] [place] [address] [place] [address] Care Team Providers Care Personnel Records Clerk Name Role Phone Brittany Saldana MD Primary Care Provider + Darrin Hernandez Unavailable Unavailable Reason for Visit * Reason Onset Date Comments Med Refill 07/23/2024 Encounter Details Date Type Department Care Team (Late st Contact Info) Description 07/23/2024 Refill [facility] MEDICINE [address] [place] [address] FairplayAlexus FNP [address] [place] [address] Depression, unspecified depression type Social History Tobacco [...] the past 12 months, has t he [employer], gas, oil or water company threatened to [...] Description 10/30/2025 1:00 PM EST Clinical Support [facility] MEDICINE [address] [place] [address] Janae Walden RN 11/02/2025 11:15 AM EST Office Visit [address] [address] Brittany Saldana MD [address] [place] [address] documented as of this encounter Goals Goal Patient Goal Type Associated Problems Recent Progress Patient-Stated? Author Blood Pressure < 140/90 Blood Pressure 138/60(2024 11:10 AM EDT) No Venkatesh Skinner PharmD Hemoglobin A1c < 7 Result Component 5(04/06/2025 9:03 AM EDT) No Veknatesh Skinner PharmD documented as of this encounter Visit Diagnoses Diagnosis Depression, unspecified depression type documented in this encounter Additional Health Concerns Assessment Noted Time PHQ-9 Depression Total Score: 4 03/06/20 24 2:22 PM EDT documented as of this encounter Care Teams Personnel Records Clerk Relationship Specialty Start Date End Date Brittany Saldana MD [address] [place] [address] PCP - General Family Medicine 05/08/20 Darrin Hernandez FNP [address] [place] [address] Nurse Practitioner Family Medicine 10/19/23 documented as of this encounter
--- OUTSIDE RECORDS SUMMARY | 2025-09-21 11:43 | XMS_ITS | Clinical Summary ---
Author Organization [employer] Address [address] [place] [address] 7 [place] [address] Care Team Providers Care Director [employer] Name Role Phone Agueda Rousseau MD Primary Care Provider + Darrin eHrnandez Unavailable Unavailable Allergies Active Allergy Reactions Criticality [...] complication, without long-term current use of insulin ([facility]) Use 1 lancet to monitor blood glucose twice daily 100 each 11 023 Active meclizine (Antivert) 25 MG tabletIndicatio ns:Vertigo TAKE 1 TABLET BY MOUTH THREE TIMES DAILY IN THE MORNING, AT NOON, AND AT BEDTIME NEEDED FOR DIZZINESS 90 tablet 024 Active glucose blood (OneTouch Ultra) test stripIndication s:Type 2 diabetes mellitus without complication, without long-term current use of insulin ([facility]) TEST BLOOD SUGAR TWICE DAILY 100 strip 11 024 Active atorvastatin (Lipitor) 20 MG tablet TAKE ONE TABLET BY MOUTH AT BEDTIME (FOR CHOLESTEROL) 30 tablet 11 025 Active traZODone (Desyrel) 100 MG tabletIndicatio ns:Depression, [...] by mouth Once per day. 90 tablet Active olopatadine (Pataday) 0.1 % ophthalmic solution [...] needed each day (constipation >1d). 527 g 2025 Active ferrous sulfate 325 (65 Fe) [...] 25 mg in the evening. Rx'd by analytics director . Active felodipine ER (Plendil) 10 MG 24 hr tablet Take 10 mg by mouth Once per day. Do not crush, chew, or split. Rx'd by cardiology Active lisinopril 30 MG tablet Take 30 mg by mouth Once per day. Cardiology increased on 08/14/25 Active cloNIDine (Catapres) 0.3 MG tabletIndicatio ns:PTSD (post-traumatic stress disorder) TAKE 1 TABLET BY MOUTH AT BEDTIME 1 tablet 11 Active Multiple Vitamins-Minera ls (CertaVite Senior/Antioxid ant) tabletIndicatio ns:Essential (primary) hypertension TAKE ONE TABLET BY MOUTH EVERY MORNING 30 tablet 11 025 Active methylphenidate ER (Concerta) 54 MG CR tablet TAKE 1 TABLET BY MOUTH EVERY MORNING DO NOT BREAK, CRUSH, DISSOLVE OR CHEW 28 tablet Active Multiple Vitamins-Minera ls (CertaVite/Anti oxidants) tabletIndicatio ns:Essential (primary) hypertension Take 1 tablet by mouth in the morning. 30 tablet 11 024 2024 Discontinued methylphenidate ER (Concerta) 54 MG CR tablet TAKE 1 TABLET BY MOUTH EVERY DAY IN THE MORNING DO NOT BREAK, CRUSH, DISSOLVE OR CHEW 28 tablet 025 2024 Discontinued cloNIDine (Catapres) 0.2 MG tabletIndicatio ns:PTSD (post-traumatic stress disorder) TAKE 1 TABLET BY MOUTH AT BEDTIME 90 tablet 3 025 2024 Discontinued(R eorder (will not trigger notification to Pharmacy)) Active Problems Problem Noted Date Diagnosed Date LAURA (generalized anxiety disorder) 08/28/2025 PTSD (post-traumatic stress disorder) 08/22/2025 Assessment & Plan (09/12/2025 1:10 PM EDT): Continue clonidine + trazodone + FU w MH provider -He wants to be referred to [facility], will reach out to counselor for that. Assessment & Plan (08/22/2025 3:39 PM EDT): [...] obtain holter monitor from [facility] ordered by weight management program [...] and fu with . Order TSH/testosterone levels, abnormal psychology teacher input appreciated. Iliopsoas bursitis of [...] IZs -RSV pending not available today in [facility] pharmacy Advise to have it at [...] months Encounter for colorectal cancer screening 2022 Moderate major depression (CMS/HCC) 11/05/2022 Assessment & Plan (08/28/2025 9:40 AM EDT): >>ASSESSMENT AND PLAN FOR RECURRENT MAJOR DEPRESSIVE DISORDER, IN PARTIAL REMISSION (CMS/HCC) WRITTEN ON 08/22/2025 2:33 PM BY AGUEDA ROUSSEAU MD >>ASSESSMENT AND PLAN FOR DEPRESSION WRITTEN ON 11/05/2022 10:49 AM BY CHARISMA GORDON Doing better. Continue current medications. He will explore options for day program(s)/activities. Gave patient name of cassi to help with sleep. F/U with me in 6-8 weeks. He agrees with the plan. Assessment & Plan (08/28/2025 9:40 AM EDT): >>ASSESSMENT AND PLAN FOR RECURRENT MAJOR DEPRESSIVE DISORDER, IN PARTIAL REMISSION (CMS/HCC) WRITTEN ON 08/22/2025 2:33 PM BY AGUEDA ROUSSEAU MD >>ASSESSMENT AND PLAN FOR DEPRESSION WRITTEN ON 12/31/2022 12:25 PM BY CHARISMA GORDON Isolating, would like to be able to get out and do more. Will increase now to Bupropion SR 200 mg BID. Sleeping well. Continue Trazodone 100 mg 2 at bedtime. F/U with me in 6 weeks. He agrees with the plan. Assessment & Plan (08/28/2025 9:40 AM EDT): >>ASSESSMENT AND PLAN FOR RECURRENT MAJOR DEPRESSIVE DISORDER, IN PARTIAL REMISSION (CMS/HCC) WRITTEN ON 08/22/2025 2:33 PM BY AGUEDA ROUSSEAU MD >>ASSESSMENT AND PLAN FOR DEPRESSION WRITTEN ON [...] agrees with the plan. Assessment & Plan (08/28/2025 9:40 AM EDT): >>ASSESSMENT AND PLAN FOR RECURRENT MAJOR DEPRESSIVE DISORDER, IN PARTIAL REMISSION (CMS/HCC) WRITTEN ON 08/22/2025 2:33 PM BY AGUEDA ROUSSEAU MD >>ASSESSMENT AND PLAN FOR DEPRESSION WRITTEN ON 03/25/2023 11:36 AM BY CHARISMA GORDON Doing well. Continue current medications: Bupropion SR 200 mg BID, Clonidine 0.1 mg BID, Trazodone 100 mg 2 at bedtime, Melatonin 5 mg at bedtime. F/U with therapist and with me in 2 months. He agrees with the plan. Assessment & Plan (08/28/2025 9:40 AM EDT): >>ASSESSMENT AND PLAN FOR RECURRENT MAJOR DEPRESSIVE DISORDER, IN PARTIAL REMISSION (CMS/HCC) WRITTEN ON 08/22/2025 2:33 PM BY AGUEDA ROUSSEAU MD >>ASSESSMENT AND PLAN FOR DEPRESSION WRITTEN ON [...] as treatment engagement. PLAN: Follow up with [facility]: Recommended for follow-up: during AUD appts. Patient goal is learn to manage sxs and improve his mental health. Behavioral Recommendations Ind. Therapy Self-development [facility] support as needed. Assessment & Plan (08/28/2025 9:40 AM EDT): >>ASSESSMENT AND PLAN FOR RECURRENT MAJOR DEPRESSIVE DISORDER, IN PARTIAL REMISSION (CMS/HCC) WRITTEN ON 08/22/2025 2:33 PM BY AGUEDA ROUSSEAU MD >>ASSESSMENT AND PLAN FOR DEPRESSION WRITTEN ON [...] he he was not contacted yet, per registration scheduling specialist, Kalyan reid contact him on 05/11/23 [...] for 6 months. He will be Contacting [facility] for him to engage in Ind. [...] as treatment engagement. PLAN: Follow up with [facility]: Recommended for follow-up: during AUD appts. Patient goal is learn to manage sxs and improve his mental health. Behavioral Recommendations Ind. Therapy Use of coping mechanisms provided at least 1 x/ day for 6 months [facility] support as needed. Assessment & Plan (08/28/2025 9:40 AM EDT): >>ASSESSMENT AND PLAN FOR RECURRENT MAJOR DEPRESSIVE DISORDER, IN PARTIAL REMISSION (CMS/HCC) WRITTEN ON 08/22/2025 2:33 PM BY AGUEDA ROUSSEAU MD >>ASSESSMENT AND PLAN FOR DEPRESSION WRITTEN ON [...] agrees with the plan. Assessment & Plan (08/28/2025 9:40 AM EDT): >>ASSESSMENT AND PLAN FOR RECURRENT MAJOR DEPRESSIVE DISORDER, IN PARTIAL REMISSION (CMS/HCC) WRITTEN ON 08/22/2025 2:33 PM BY AGUEDA ROUSSEAU MD >>ASSESSMENT AND PLAN FOR DEPRESSION WRITTEN ON [...] agrees with the plan. Assessment & Plan (08/28/2025 9:40 AM EDT): >>ASSESSMENT AND PLAN FOR RECURRENT MAJOR DEPRESSIVE DISORDER, IN PARTIAL REMISSION ([facility]) WRITTEN ON 08/22/2025 2:33 PM BY AGUEDA ROUSSEAU MD >>ASSESSMENT AND PLAN FOR DEPRESSION WRITTEN ON [...] agrees with the plan. Assessment & Plan (08/28/2025 9:40 AM EDT): >>ASSESSMENT AND PLAN FOR RECURRENT MAJOR DEPRESSIVE DISORDER, IN PARTIAL REMISSION ([facility]) WRITTEN ON 08/22/2025 2:33 PM BY AGUEDA ROUSSEAU MD >>ASSESSMENT AND PLAN FOR DEPRESSION WRITTEN ON [...] could be referred to. Assessment & Plan (08/28/2025 9:40 AM EDT): >>ASSESSMENT AND PLAN FOR RECURRENT MAJOR DEPRESSIVE DISORDER, IN PARTIAL REMISSION (CMS/HCC) WRITTEN ON 08/22/2025 2:33 PM BY AGUEDA ROUSSEAU MD >>ASSESSMENT AND PLAN FOR DEPRESSION WRITTEN ON [...] agrees with the plan. Assessment & Plan (08/28/2025 9:40 AM EDT): >>ASSESSMENT AND PLAN FOR RECURRENT MAJOR DEPRESSIVE DISORDER, IN PARTIAL REMISSION (CMS/HCC) WRITTEN ON 08/22/2025 2:33 PM BY AGUEDA ROUSSEAU MD >>ASSESSMENT AND PLAN FOR DEPRESSION WRITTEN ON [...] management. For any issues or concerns contact [facility]. Continue with therapist as usual. I have wished him well. He agrees with the plan. Assessment & Plan (08/28/2025 9:40 AM EDT): >>ASSESSMENT AND PLAN FOR RECURRENT MAJOR DEPRESSIVE DISORDER, IN PARTIAL REMISSION (CMS/HCC) WRITTEN ON 08/22/2025 2:33 PM BY AGUEDA ROUSSEAU MD >>ASSESSMENT AND PLAN FOR DEPRESSION WRITTEN ON 03/21/2024 12:02 PM BY VICTOR M SERNA - doing well on current medications, feels safe at home - continue on AUD program, will continue to prescribe Clonidine + Abilify + Trazodone + Bupropion + Gabapentin at bedtime. 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 No adjustment to antihypertensive regimen at this time. -Continue lisinopril 30 mg, felodipine ER 10 mg, hydralazine 25 mg 3 times daily spironolactone 25 mg . Monitor blood pressure, especially first thing in the morning. -Follow-up appointment scheduled for November 02, 2025. 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 Continue Lisinopril [...] exercise, life style modifications, diet, referral to patient registration specialist. Discussed re lower calorie intake, increase dietary fiber Pt insisted on wt reduction program, C program given today Alcohol abuse 10/22/2022 08/22/2025 [...] organization. Date Type Department Care Team Description 09/21/2025 Orders Only GENERIC EXTERNAL DATA DEPARTMENT Provider, Generic External Data 09/19/2025 10:00 AM EST Office Visit [facility] MEDICINE [address] [place] [address] Migue Stephens MD Alcohol use disorder (Primary Dx) 09/19/2025 Refill [facility] [address] [place] [address] Agueda Rousseau MD 09/19/2025 Travel 09/18/2025 Patient Outreach [facility] [address] [place] [address] Ted Olvera Recovery Supports 09/14/2025 Patient Outreach [facility] MEDICINE [address] [place] [address] Rolando Amos Recovery Supports 09/13/2025 1:00 PM EDT Office Visit [facility] OPTOMETRY [address] [place] [address] Renetta Mitchell, OD History of type 2 diabetes mellitus (Primary Dx); Retinal tear of right eye; Vitreoretinal tuft of left eye; Epiretinal membrane, right eye; History of neurofibromatosis (CMS/HCC) ([facility]); Pseudophakia, both eyes; Presbyopia 09/13/2025 Patient Outreach [facility] [address] [place] [address] Corbin Aguilar Recovery Supports 09/13/2025 Refill [facility] MEDICINE [address] [place] [address] Agueda Rousseau MD Essential (primary) hypertension 09/13/2025 Travel 09/12/2025 11:00 AM EDT Office Visit [facility] MEDICINE [address] [place] [phone] Agueda Rousseau MD Essential (primary) hypertension (Primary Dx); PTSD (post-traumatic stress disorder) 09/12/2025 Travel 09/11/2025 Telephone [facility]ICINE [address] [place] [phone] Agueda Rousseau MD CHART PREP 09/11/2025 Patient Outreach [address] [address] Rolando Amos 09/11/2025 Travel 09/05/2025 10:00 AM EDT Office Visit [address] [address] Migue Stephesn MD Alcohol use disorder (Primary Dx) 09/05/2025 Travel 08/30/2025 Patient Outreach [address] [address] Ted Olvera Recovery Supports 08/29/2025 10:00 AM EDT Office Visit [address] [address] Migue Stephens MD Alcohol use disorder (Primary Dx) 08/29/2025 Travel 08/28/2025 Patient Outreach [address] [address] Ted Olvera Recovery Supports 08/25/2025 Travel 08/24/2025 Orders Only GENERIC EXTERNAL DATA DEPARTMENT Provider, Generic External Data 08/23/2025 Patient Outreach [facility] [place] [address] Corbin Aguilar Recovery Supports 08/22/2025 11:15 AM EDT Office Visit [address] [address] Agueda Rousseau MD Attention deficit hyperactivity disorder, predominantly inattentive type (Primary Dx); Essential (primary) hypertension; PTSD (post-traumatic stress disorder); Obstructive sleep apnea syndrome; Encounter for vaccination; Encounter for immunization 08/22/2025 Travel 08/21/2025 Telephone [facility] [place] [place] [address] Agueda Rousseau MD chart prep 08/16/2025 Patient Outreach [address] [address] Corbin Aguilar Recovery Supports 08/15/2025 10:00 AM EDT Office Visit [address] [address] Migue Stephens MD Alcohol use disorder (Primary Dx) 08/15/2025 Travel 08/14/2025 Patient Outreach [facility] [place] [address] Ted Olvera Recovery Supports 08/08/2025 10:00 AM EDT Office Visit [facility] [place] [address] Migue Stephens MD Alcohol use disorder (Primary Dx); Essential (primary) hypertension 08/08/2025 Travel 08/07/2025 1:15 PM EDT Office Visit [facility] [place] [address] Brandon Caballero MD Alcohol use disorder, severe, in sustained remission (CMS/HCC) (Primary Dx) 08/07/2025 Patient Outreach [facility] [place] [address] Corbin Aguilar Recovery Supports 08/07/2025 Travel 08/07/2025 Orders Only [facility] [place], [place] [phone] David Potter MD 08/01/2025 10:00 AM EDT Office Visit [facility] [place] [address] Migue Stephens MD Alcohol use disorder (Primary Dx) 08/01/2025 Travel 07/24/2025 Patient Outreach [facility] [place], [place] [phone] Ted Olvera Recovery Supports 07/23/2025 11:30 AM EDT Clinical Support [facility] [place], [place] [phone] Pippa Aldrich, CORTES Essential (primary) hypertension 07/23/2025 Travel 07/20/2025 Refill [facility] [place] [place] [address] Agueda Rousseau MD 07/18/2025 Refill [facility] [place], [place] [phone] Agueda Rousseau MD Type 2 diabetes mellitus without complication, without long-term current use of insulin (CMS/HCC) 07/16/2025 Travel 07/11/2025 10:00 AM EDT Clinical Support [address] [place] [address] Janae Walden, CORTES Alcohol use disorder, severe, in sustained remission (CMS/HCC) 07/11/2025 Travel 07/10/2025 Patient Outreach [address] [address] Corbin Aguilar Recovery Supports 07/10/2025 Patient Outreach [address] [address] Corbin Aguilar Recovery Supports 07/09/[address] [address] Agueda Rousseau MD Care Coordination 06/29/[address] [address] Agueda Rousseau MD 06/27/2025 10:00 AM EDT Office Visit [address] [address] Migue Stephens MD Alcohol use disorder, severe, in sustained remission (CMS/[facility]) (Primary Dx) 06/27/2025 Travel 06/26/2025 Patient Outreach [address] [address] Ted Olvera Recovery Supports from Last 3 [...] Sign Reading Time Taken Comments Blood Pressure 138/60 09/12/2025 11:10 AM EDT Pulse 76 09/12/2025 11:10 AM EDT Temperature 36.4 C (97.6 F) 09/12/2025 11:10 AM EDT Respiratory Rate 12 09/12/2025 11:10 AM EDT Oxygen Saturation 97% 07/23/2025 1:15 PM EDT Inhaled Oxygen Concentration - - Weight 70.8 kg (156 lb) 09/12/2025 11:10 AM EDT Height 160 cm (5' 3 ) 09/12/2025 11:10 AM EDT Body Mass Index 27.63 09/12/2025 11:10 AM EDT Plan of Treatment Upcoming Encounters Date Type Department Care Team (Late st Contact Info) Description 10/30/2025 1:00 PM EST Clinical Support [facility] MED[facility]INE [address] [place] [phone] Janae Walden RN 11/02/2025 11:15 AM EST Office Visit [address] [address] Agueda Rousseau MD [address] [place] [phone] Health Maintenance Due Date Last Done Comments CT Colonography 1957 Dental Oral Exam 1957 Dental Prophylaxis 1957 Dental X-Ray: Bitewings 1957 Dental X-Ray: Full Mouth 1957 FIT DNA/Cologuard 1957 FIT 1957 FOBT 1957 Sigmoidoscopy 1957 Colonoscopy 09/19/2025 09/19/2024 Colorectal Cancer Screening 09/19/2025 Diabetes: Hemoglobin A1C 10/07/2025 025, 12/07/2024, 07/26/2024, Additional history exists Alcohol/Substance Use Screening 12/07/2025 12/07/2024 SDOH Screening 01/22/2026 01/22/2025 Lipid Panel 04/06/2026 04/06/2025, 12/16, 02/24/2023, Additional history exists Diabetes: Urine Protein Screening 04/10/2026 04/10/2025, 05/02/2024, 12/09/2021 Diabetes: Foot Exam 06/19/2026 06/19/2025, 06/19/2025, 06/19/2025, Additional history exists Depression Screening 08/28/2026 08/28/2025, 08/22/20 Tobacco Screening 09/13/2026 09/13/2025 Eye Exam 09/13/2027 09/13/2025, 08/17, 09/13/2025, Additional history exists DTaP/Tdap/Td Vaccines (2 - [...] Name Priority Date/Time Associated Diagnosis Comments VITAMIN B12/FOLATE, SERUM PANEL Routine 09/21/2025 10:10 AM EST VITAMIN D,25-OH,TOTAL,IA Routine 09/21/2025 10:10 AM EST FERRITIN Routine 09/21/2025 10:10 AM EST C-REACTIVE PROTEIN Routine 09/21/2025 10 :10 AM EST IRON AND TOTAL IRON BINDING CAPACITY Routine 09/21/2025 10:10 AM EST CBC WITH AUTO DIFFERENTIAL Routine 09/21/2025 10:10 AM EST BASIC METABOLIC PANEL Routine 08/24/2025 9:[address] CHEST WO CONTRAST Routine 07/31/2025 9:22 AM EDT ALBUMIN, RANDOM URINE W/CREATININE Routine 04/10/2025 10:21 AM EDT HEMOGLOBIN A1C Routine 04/06/2025 9:03 AM EDT LIPID PANEL, STANDARD Routine 04/06/2025 9:03 AM EDT HM COLONOSCOPY Routine 09/19/2024 ZZZ HISTORICAL HEPATITIS C AB W/REFL TO HCV RNA, QN, PCR Routine 12/09/2021 11:13 AM EST from Last 3 Months or Most Recently Relevant to Health Maintenance Results * Vitamin D, 25-Hydroxy, Total, Immunoassay (09/21/2025 10:10 AM EST) Vitamin D 25-OH Total 44.2 >30 ng/mL [facility] Comment: Health Based Reference Values*< 20 ng/mL [id number] ng/mL Insufficient> 30 ng/mL Sufficient*Mervat YU. N [...] Provider LAB BLOOD ORDERAB LES Final Result [facility] [address] [place] [phone] * (ABNORMAL) Vitamin B12 (Cobalamin) and Folate Panel, Serum (09/21/2025 10:10 AM EST) Vitamin B12 1,101(H) 200 - 900 pg/mL [facility] Comment:NORMAL 200-900 PG/ML INDETERMINATE 160-199 PG/ML DEFICIENT < 160 PG/ML Folate 13.5 > or = 4.0 ng/mL [facility] Comment:Reference Values:> o r = 4.0 ng/mL< 4.0 ng/mL suggests folate deficiency Methotrexate, aminopterin and folinic acid(leucovorin) are chemotherapeutic agents whose molecularstructures are similar to folate; therefore, the Architectfolate assay cannot be used for patients using these drugs. 09/21/2025 10:1 0 AM EST 09/21/2025 10:13 AM EST us Generic External Data Provider LAB BLOOD ORDERAB LES Final Result [facility] [address] [place] [phone] * (ABNORMAL) CBC auto differential (09/21/2025 10:10 AM EST) White Blood Count 9.0 4.8 - 10.8 X10*3/uL [facility] Red Blood Count 4.06(L) 4.60 - 5.80 X10*6/uL [facility] Hemoglobin 12.5(L) 14.0 - 18.0 g/dl [facility] Hematocrit 38.0(L) 42.0 - 52.0 % [facility] Mean Corpuscular Volume 93.6 80.0 - 98.0 fL [facility] Mean Corpuscular Hemoglobin 30.8 27.0 - 33.0 pg [facility] Mean Corpuscular HGB Conc 32.9 31.0 - 36.0 g/dl [facility] Red Cell Distribution Width 13.0 11.0 - 16.0 % [facility] Platelet Count 220 160 - 400 X10*3/uL [facility] Mean Platelet Volume 9.3(L) 9.4 - 12.4 fL [facility] Neutrophils Percent Auto 72.9 45 - 73 % [facility] Imm Gran Pct Auto 0.4 0.0 - 0.4 % [facility] Lymphocytes Percent Auto 16.9(L) 20 - 40 % [facility] Monocytes Percent Auto 7.4 2 - 11 % [facility] Eosinophils Percent Auto 1.7 0 - 4 % [facility] Basophils Percent Auto 0.7 0 - 2 % [facility] NRBC Pct Auto 0.0 0.0 - 0.2 /100WBC [facility] Neutrophils Absolute Auto 6.5 2.0 - 8.3 x10*3/uL [facility] Imm Gran Abs Auto 0.04(H) 0.00 - 0.03 X10*3/uL [facility] Lymphocytes Absolute Auto 1.5 1.2 - 4.9 X10*3/uL [facility] Monocytes Absolute Auto 0.7 0.1 - 1.2 X10*3/uL [facility] Eosinophils Absolute Auto 0.2 0.0 - 0.4 X10*3/uL [facility] Basophils Absolute Auto 0.1 0.0 - 0.2 X10*3/uL [facility] NRBC Abs Auto 0.000 0.0 - 0.012 X10*3/uL [facility] 09/21/2025 10:1 0 AM EST 09/21/2025 10:13 AM EST us Generic External Data Provider LAB BLOOD ORDERAB LES Final Result [facility] [address] [place] [address] [phone] * (ABNORMAL) Iron And Total Iron Binding Capacity (09/21/2025 10:10 AM EST) Iron 108 45 - 160 mcg/dL [facility] Total Iron Binding Capacity 216(L) 228 - 428 mcg/dL [facility] Percent Iron Saturation 50 15 - 50 % [facility] Unsaturated Iron Binding 108 ug/dL [facility] 09/21/2025 10:1 0 AM EST 09/21/2025 10:13 AM EST us Generic External Data Provider LAB BLOOD ORDERAB LES Final Result Performing Organization Address [facility] de Phone Number [facility] [address] [place] [phone] * C-reactive Protein (09/21/2025 10:10 AM EST) Pathologist [facility] C Reactive Protein <0.10 < or = 0.50 mg/dL [facility] 09/21/2025 10:1 0 AM EST 09/21/2025 10:13 AM EST Generic External Data Provider LAB BLOOD ORDERAB LES Final Result Performing Organization Address [facility] de Phone Number [facility] [address] [place] [phone] * Ferritin (09/21/2025 10:10 AM EST) Pathologist [facility] Ferritin 115 20 - 250 ng/mL [facility] 09/21/2025 10:1 0 AM EST 09/21/2025 10:13 AM EST Generic External Data Provider LAB BLOOD ORDERAB LES Final Result Performing Organization Address [facility] Phone Number [facility] [address] [place] [phone] * (ABNORMAL) Basic Metabolic Panel (08/24/2025 9:58 AM EDT) Pathologist [facility] Sodium 141 135 - 145 mmol/L [facility] Potassium 4.6 3.3 - 5.1 mmol/L [facility] Chloride 104 96 - 108 mmol/L [facility] Carbon Dioxide 30(H) 22 - 29 mmol/L [facility] Anion Gap 12 12 - 20 [facility] Urea Nitrogen (BUN) 19(H) 9 - 16 mg/dL [facility] Creatinine, Serum 1.12 0.5 - 1.4 mg/dL [facility] Estimated Glomerular Filt Rate >60 [facility] Comment:Chronic Kidney Disea se: Estimated GFR < 60 mL/min/[id number] Kidney Disease: Estimated GFR < 15 mL/min/1.73m2 Glucose 93 60 - 115 mg/dL [facility] Calcium 9.7 8.4 - 10.2 mg/dL [facility] 08/24/2025 9:58 AM EDT 08/24/2025 9:58 AM EDT us Generic External Data Provider LAB BLOOD ORDERAB LES Final Result Performing Organization Address [facility]/ZIP Co de Phone Number [facility] [address], [place] [phone] * CT CHEST WO CONTRAST (07/31/2025 9:22 AM EDT) Anatomical Region Laterality Modality Computed Tomogra phy Historical Provider IMG CT PROCEDURES Final R esult * Albumin, Random Urine W/Creatinine (04/10/2025 10:21 AM EDT) Creatinine, Urine 61.10 mg/dL [facility] Microalbumin Urine 14.0 mg/L [facility] Microalbum Creatinine Ratio Ur 22.9 <30 ug/mg cr [facility] Comment:Albumin/Creatinine R atio Reference Ranges: Normal: < 30 ug/mg creatinine Microalbuminuria: 30 - 300 ug/mg creatinineClinical Albuminuria: > 300 ug/mg creatinine 04/10/2025 10:2 1 AM EDT 04/10/2025 11:06 AM EDT us Agueda Rousseau MD LAB URINE ORDERABLES Fin al Result Performing Organization Address City/[facility]/ZIP Co de Phone Number [facility] [address], [place] [phone] * Hemoglobin A1c (04/06/2025 9:03 AM EDT) Hemoglobin A1c 5.0 <6.0 % [facility] Comment:Hemoglobin A1C Refer ence Range Adults: 4.8 - 6.0 % Non diabetic: < 6.0 % Goal: < 7.0 %Additional Action Suggested: > 8.0 %Note: Hemoglobin A1c results are invalid for patients with abnormal amounts of HbF. Blood transfusions may impact the HbA1c concentration in the patient sample. Estimated Average Glucose 97 mg/dL [facility] Comment:eAG = Estimated ave rage glucose which is %A1C expressed asaverage glucose, using the formula of the Z3O-EuuptpvVzicbeq Glucose study (ADAG), Diabetes Care, Vol.31,#8,Jun. 2007 04/06/2025 9:03 AM EDT 04/06/2025 11:03 AM EDT us Generic External Data Provider LAB BLOOD ORDERAB LES Final Result [facility] [address] [place] [phone] * (ABNORMAL) Lipid Panel, Standard (04/06/2025 9:03 AM EDT) Triglycerides 63 <150 mg/dL [facility] Comment:Desirable Triglyceri de: less than 150 mg/dLBorderline High Triglyceride 150-199 mg/dLHigh Triglyceride: 200-499 mg/dLVery High Triglyceride: greater than or equal to 5OO mg/dL Cholesterol 124 <200 mg/dL [facility] Comment:Desirable Cholestero l: less than 200 mg/dLBorderline High Cholesterol: 200-239 mg/dLHigh Cholesterol: greater than 239 mg/dL LDL Cholesterol Calculated 75 <100 mg/dL [facility] Comment:Desirable LDL: less than 100 mg/dLNear Optimal/Above Optimal LDL: 110- 129 mg/dLBorderline High LDL: 130-159 mg/dLHigh LDL: 160-189 mg/dLVery High LDL: greater than or equal to 190 mg/dL HDL Cholesterol 37(L) >40 mg/dL [facility] Comment:Desirable HDL: great er than 40 mg/dL Note: This HDL assay may give artificially low results in patients with liver disease. 04/06/2025 9:03 AM EDT 04/06/2025 11:23 AM EDT us Generic External Data Provider LAB BLOOD ORDERAB LES Final Result Performing Organization Address [facility]/ZIP Co de Phone Number [facility] [address] [place] [phone] [phone] * (ABNORMAL) Hm Colonoscopy (09/19/2024) Colonoscopy Normal Normal [facility] Comment:poor prep us Agueda Rousseau MD HEALTH MAINTENANCE Final Result Performing Organization Address [facility] de Phone Number [facility] [address] [place] [address] [phone] * HEPATITIS C AB W/REFL TO HCV RNA, QN, PCR (12/09/2021 11:13 AM EST) HEPATITIS C ANTIBODY NON-REACT JAMES NON-REACT [facility] INDEX 0.03 <1.00 [facility] Comment: HCV antibody was non-reactive. There is no laboratory evidence of HCV infection. In most cases, no further action is required. However, if recent HCV exposure is suspected, a test for HCV RNA (test code 33206) is suggested. For additional information please refer to http://education.Conversocial/faq/HUE73u1 (This link is being provided for informational/ educational purposes only.) 12/09/2021 11:1 3 AM EST us Lulu Garcia ANP HISTORICAL/NON ORDERABLE LABS Fi nal Result Performing Organization Address [facility] Co de Phone Number [facility] [address] from Last 3 Months or Most Recently Relevant to Health Maintenance Insurance [employer] (HMO D-SNP) [facility] STANDARD Care Teams Director Water And Waste Services Relationship Specialty Start Date End Date Agueda Rousseau MD [address] [place] [address] PCP - General Family Medicine 05/08/20 Darrin Hernandez FNP [address] [place] [address] Nurse Practitioner Family Medicine 10/19/23
--- OUTSIDE RECORDS SUMMARY | 2025-09-21 11:43 | XMS_ITS | Encounter Summary ---
Author Organization [employer] Address [address] [place] [address] 7 [place] [address] Care Team Providers Care Physical Therapy Manager Name Role Phone Brittany Saldana MD Primary Care Provider + Darrin Hernandez Unavailable Unavailable Reason for Visit * Reason Comments Med Refill Encounter Details Date Type Department Care Team (Late st Contact Info) Description 07/25/2024 Refill [facility] [address] [place] [address] Brandon Caballero MD [address] [place] [address] Type 2 diabetes mellitus without complication, without long-term current use of insulin ([facility]) Social History Tobacco Use Types [...] Description 10/30/2025 1:00 PM EST Clinical Support [facility] [address] [place] [address] Janae Walden RN 11/02/2025 11:15 AM EST Office Visit [facility] [address] [place] [address] Brittany Saldana MD [address] [place] [address] documented as of this encounter Goals Goal [...] documented as of this encounter Care Teams Physical Therapy Manager Relationship Specialty Start Date End Date Brittany Saldana MD [address] [place] [address] PCP - General Family Medicine 05/08/20 Darrin Hernandez FNP [address] [place] [address] Nurse Practitioner Family Medicine 10/19/23 documented as of this encounter
--- OUTSIDE RECORDS SUMMARY | 2025-09-21 11:43 | XMS_ITS | Encounter Summary ---
Author Organization [employer] Address [address] [place] [address] Care Team Providers Care Industrial Rehabilitation Consultant Name Role Phone Brittany Saldana MD Primary Care Provider + Darrin Hernandez Unavailable Unavailable Reason for Visit * Reason Onset Date Comments Durable Medical Equipment 01/05/2023 Encounter Details Date Type Department Care Team (Late st Contact Info) Description 01/05/2023 Telephone [facility] [address] [place] [address] Brittany Saldana MD [address] [place] [address] Durable Medical Equipment Social History Tobacco Use [...] If any questions please contact pt at [phone] documented in this encounter Plan of Treatment Upcoming Encounters Date Type Department Care Team (Late st Contact Info) Description 10/30/2025 1:00 PM EST Clinical Support [facility] [address] [place] [address] Janae Walden RN 11/02/2025 11:15 AM EST Office Visit [facility] [address] [place] [address] Brittany Saldana MD [address] [place] [address] documented as of this encounter Visit Diagnoses Not on filedocumented in this encounter Additional Health Concerns Assessment Noted Time PHQ-9 Depression Total Score: 4 12/31/19 10:56 AM EST documented as of this encounter Care Teams Industrial Rehabilitation Consultant Relationship Specialty Start Date End Date Brittany Saldana MD [address] [place] [address] PCP - General Family Medicine 05/08/20 Darrin Hernandez FNP [address] [place] [address] Nurse Practitioner Family Medicine 10/19/23 documented as of this encounter
--- OUTSIDE RECORDS SUMMARY | 2025-09-21 11:43 | XMS_ITS | Encounter Summary ---
Author Organization [employer] Address [address] [place] [address] [place] [address] Care Team Providers Care Welder Explosion Name Role Phone Brittany Saldana MD Primary Care Provider + Darrin Hernandez Unavailable Unavailable Reason for Visit * Reason Onset Date Comments Referral 09/24/2023 Encounter Details Date Type Department Care Team (Late st Contact Info) Description 09/24/2023 Telephone [facility] [address] [place] [address] Brittany Saldana MD [address] [place] [address] Referral Social History Tobacco Use Types Packs/Day [...] the past 12 months, has t he [employer], gas, oil or water company threatened to [...] encounter Miscellaneous Notes * Telephone Encounter - Argleia Cheung - 09/24/2023 9:02 AM EST Tc from sri with [facility] requesting a new order for Occupational therapy for weakness in hands. States they received the referral for Occupational therapy but dx says hip pain. Please fax to [phone] Any questions, please contact sri at [phone] documented in this encounter Plan of Treatment Upcoming Encounters Date Type Department Care Team (Late st Contact Info) Description 10/30/2025 1:00 PM EST Clinical Support [facility] [address] [place] [address] Janae Walden RN 11/02/2025 11:15 AM EST Office Visit [facility] [address] [place] [address] Brittany Saldana MD [address] [place] [address] documented as of this encounter Visit Diagnoses Not on filedocumented in this encounter Additional Health Concerns Assessment Noted Time PHQ-9 Depression Total Score: 4 09/06/20 23 11:30 AM EDT documented as of this encounter Care Teams Welder Explosion Relationship Specialty Start Date End Date Brittany Saldana MD [address] [place] [address] PCP - General Family Medicine 05/08/20 Darrin Hernandez FNP [address] [place] [address] Nurse Practitioner Family Medicine 10/19/23 documented as of this encounter
--- OUTSIDE RECORDS SUMMARY | 2025-09-21 11:43 | XMS_ITS | Encounter Summary ---
Author Organization [employer] Address [address] [place] [address] Care Team Providers Care Cell Tender Helper Name Role Phone Brittany Saldana MD Primary Care Provider + Darrin Hernandez Unavailable Unavailable Reason for Visit * Reason Onset Date Comments Durable Medical Equipment 02/15/2023 Encounter Details Date Type Department Care Team (Late st Contact Info) Description 02/15/2023 Telephone [facility] [address] [place] [address] Brittany Saldana MD [address] [place] [address] Durable Medical Equipment Social History Tobacco Use [...] Description 10/30/2025 1:00 PM EST Clinical Support [address] [address] Janae Walden RN 11/02/2025 11:15 AM EST Office Visit [address] [address] Brittany Saldana MD [address] [place] [address] documented as of this encounter Visit Diagnoses Not on filedocumented in this encounter Additional Health Concerns Assessment Noted Time PHQ-9 Depression Total Score: 10 02/11/ 023 10:47 AM EDT documented as of this encounter Care Teams Cell Tender Helper Relationship Specialty Start Date End Date Brittany Saldana MD [address] [place] [address] PCP - General Family Medicine 05/08/20 Darrin Hernandez FNP [address] [place] [address] Nurse Practitioner Family Medicine 10/19/23 documented as of this encounter
== END 2025-09-21 09:59 | disposition home or self-care (01) ==
LOC: HO.LAB 09:58
PROVIDERS: PCP Internal Medicine; Visit Provider Physician Assistant Surgical
DX: Z98.84 Bariatric surgery status (principal)
CPT/HCPCS: 36415; 82306; 82607; 82728; 82746; 83540; 84425; 84590; 84630; 85025; 86140

== ENCOUNTER 2025-10-12 09:42 | Outpatient (REF) | payer OTHER, SELFPAY ==
--- OUTSIDE RECORDS SUMMARY | 2025-10-12 09:45 | XMS_ITS | Patient Health Record ---
Author Organization [employer] Address [address] [facility] [address] [place] [address] Support Name Relationship Address Phone Dane Calles Guarantor Unknown [phone] Allergies Allergen (clinical drug ingredient) Drug/Non Drug [...] Disorder due to type 2 diabetes mellitus (086286868) Type 2 diabetes mellitus with unspecified complications (E11.8) Active confirmed Problem Morbid obesity (disorder) (951128059) Morbid (severe) obesity due to excess calories (E66.01) Active confirmed Problem Mixed hyperlipidemia (187982396) Mixed hyperlipidemia (E78.2) Active confirmed Problem Alcohol dependence (99400996) Alcohol dependence, uncomplicated (F10.20) Active confirmed Problem Mild recurrent major depression (73760295) Major depressive disorder, recurrent, mild (F33.0) Active confirmed Problem 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, intractable, 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) Active confirmed Problem 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, intractable, without status epilepticus (G40.219) Active confirmed Problem Obstructive sleep apnea syndrome (disorder) (69416870) Obstructive sleep apnea (adult) (pediatric) (G47.33) Active confirmed Problem Essential hypertension (04254066) Essential (primary) hypertension (I10) Active confirmed Problem Gastro-esophageal reflux disease without esophagitis (507218230) Gastro-esophageal reflux disease without esophagitis (K21.9) Active confirmed Problem Neurofibromatosis (13506795) Neurofibromatosis , 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) Active confirmed Problem Somnolence (46155631) Somnolence (R40.0) Active confirmed Problem Attention deficit hyperactivity disorder, predominantly inattentive type (disorder) (43300867) Attention and concentration deficit (R41.840) Active confirmed Problem Body mass index 40+ - severely obese (073850759) Body mass index (BMI) 40.0-44.9, adult (Z68.41) Active confirmed Problem Lower urinary tract symptoms due to benign prostatic hypertrophy (87975592209658) Benign prostatic hyperplasia with lower urinary tract symptoms (N40.1) Active confirmed Problem Morbid obesity (504265691) Morbid obesity (E66.01) Active confirmed Plan Of Treatment No Information Medical (General) History Medical History History ICD Code hypertension, benign acid reflux BPH see Urology Attention deficit disorder Neurofibromatosis complex partial seizure disorder Surgical History Surgery Date(Month/Year) Umblical hernia repair 2004 Tonsellectomy Cyst in throat removed
--- OUTSIDE RECORDS SUMMARY | 2025-10-12 09:45 | XMS_ITS | Clinical Summary ---
Author Organization [address] [facility] Address [address] [place] [address] Phone Care Team Providers Care Moisture Conditioner Operator Name Role Phone Brittany Saldana MD Primary Care Provider + [phone] Allergies Active Allergy Reactions Criticality Noted Date [...] 12/07/2024 Polyneuropathy associated wi th underlying disease ([facility] V24) 12/07/2024 Recurrent major depressive d isorder, in partial remission ([facility] V24) 12/07/2024 Neurofibroma of upper extremity 09/22/2024 Vertigo 07/26/2024 Fall (on) (from) other stairs and steps, initial encounter 06/29/2024 Bradycardia 03/21/2024 Arthritis of both hands 11/18/2023 Chronic fatigue 06/03/2023 Erectile dysfunction 06/03/2023 Iliopsoas bursitis of left hip 06/03/2023 Type 2 diabetes mellitus wit hout complication, without long-term current use of insulin ([facility] V24, [facility] V28) 02/08/2023 Varicose veins of bilateral lower [...] 10:30 AM EDT Office Visit Pulmonology - [place] [address] [facility] [address] [place] [phone] Sena Mobley MD Nocturnal hypoglycemia (Primary Dx) 07/31/2025 3:58 PM EDT - 07/31/2025 11:59 PM EDT Hospital Encounter [facility] CT Scan [address] [place] [phone] Pulmonary nodule Discharge Disposition: Home or Self Care from Last 3 Months Social History Tobacco [...] Signed Date: 08/03/2025 12:05 ET Workstation ID: [id number] Transcribed By: Self Edit Transcribed Date: 08/03/2025 [...] Signed Date: 08/03/2025 12:05 ET Workstation ID: [id number] Transcribed By: Self Edit Transcribed Date: 08/03/2025 11:58 ET Sena Mobley MD IMG CT PROCEDURES Final Resu lt from Last 3 Months Insurance [facility] MEDICARE Member Subscriber Plan / Payer (Ef fective 2023-Present) Name:Dane Calles Relation to Subscriber:Self Name:Dane Calles Payer ID:[id number] Group ID:[id number] Type:Not on file Address: [place] [address] [address] [address] Care Teams Moisture Conditioner Operator Relationship Specialty Start Date End Date Brittany Saldana MD [address] [address] PCP - General Internal Medicine 07/05/25
--- OUTSIDE RECORDS SUMMARY | 2025-10-12 09:45 | XMS_ITS | Clinical Summary ---
Author Organization [facility] Address [address] [place] [address] Care Team Providers Care Development Disability Specialist Name Role Phone Selvin Payan MD Primary Care Provider [phone] Allergies Active Allergy Reactions Criticality Noted Date [...] age to complete this topic Care Teams Development Disability Specialist Relationship Specialty Start Date End Date Selvin Payan MD [address] [place] [address] PCP - General Internal Medicine 03/08/18
--- OUTSIDE RECORDS SUMMARY | 2025-10-12 09:45 | XMS_ITS | Data Portability ---
Author Organization [place] [facility] Address [address] [address] Care Team Providers Care Hydro Sprayer Operator Name Role Phone AGUEDA ROUSSEAU Referring Provider [...] 6-12 months, sooner with sudden hearing changes. [place] was negative for vertigo and rotary nystagmus. [...] recorded. Referral vestibular [facility], [address] [place] [address], [place], [address], 5 10:49:53 Procedures None recorded. Surgeries None [...] Organization Details Recorded Time Mass of neck 108699226 Active 2018 Localized swelling, mass and lump, neck; Note: Date Diagnosed : 9 3:24 PM (R22.1) Not Available [facility] 4 03:19:11 Neck swelling 645221209 Active 2018 Localized swelling, mass and lump, neck; Note: Date Diagnosed : 9 3:24 PM (R22.1) Not Available [facility] 4 03:19:11 Neurofibr omatosis syndrome 19432890 Active 2018 Neurofibr omatosis, unspecifi ed; Note: Date Diagnosed : 9 3:24 PM (Q85.00) Not Available [facility] 4 03:19:10 Impacted cerumen of bilateral ears 47456687258 81128 Active 2018 Impacted cerumen, bilateral ; Note: Date Diagnosed : 9 3:23 PM (H61.23) Not Available [facility] 4 03:19:10 Sensorine ural hearing loss of bilateral ears 056502346 Active 2018 Sensorine ural hearing loss, bilateral ; Note: Date Diagnosed : 9 10:13 AM (H90.3) Not Available [facility] 4 03:19:11 Follow-up visit Active 2019 Encounter for follow-up examinati on after completed treatment for condition s other than malignant neoplasm; Note: Date Diagnosed : 12/22/2019 11:28 AM (Z09) Not Available [facility] 4 03:19:10 Benign neoplasm of major salivary gland 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 Procedures Surgical History Date Name Laterality Status Provider Name and Address Organization Details Recorded Time 06/06/2025 Comp Audio with Tymps - 63776 & 60515 completed ROD RICH [address] [facility],[place] [address], [place], [address], [facility] [place] 06/06/2025 09:54:56 Imaging Results None recorded. Procedure Notes None recorded. Medical Equipment None Reported. Allergies Allergen ID Allergen Name Allergen Category Reaction Reaction Severity Criticality Documentation Date Start Date Code Code System Note Provider Name and Address Organization Details Recorded Time 174276 penicilli n V potassium medicatio n other Not available Not available 03/28/2024 5 RxNorm React ion: unkno wn, unspe cifie d;; Not Available [facility] 4 01:25:46 Medications Name Sig Start Date Stop Date Status Note LastModified by Organization Details LastModified Time metformin 500 mg tablet 2019 active Medicati on ID: [id number] D uration Value: 90 Brand Name: metformi [...] 24 hr 2018 active Medicati on ID: [id number] D uration Value: 90 Brand Name: felodipi ne Send Method: E-Prescr ibed Sub s Allowed: subs OK Speci al Instruct ion: TK 1 T PO QD Medic ationGen ericName : felodipi ne Not Available Not Available Not Available omeprazol e 40 mg capsule,d elayed release 06/06 completed Medicati on ID: [id number] D uration Value: 90 Brand Name: omeprazo le Send Method: E-Prescr ibed Sub s Allowed: subs OK Speci al Instruct ion: TAKE ONE CAPSULE BY MOUTH EVERY DAY [facility] nericNam e: omeprazo le Not Available Not Available Not Available ketorolac 0.5 % eye drops INSTILL 1 DROP AFFECTED EYE(S) THREE TIMES DAILY STARTING 2 DAYS BEFORE SURGERY active Not Available Not Available No t Available tamsulosi n 0.4 mg capsule 2018 active Medicati on ID: [id number] D uration Value: 90 Brand Name: tamsulos [...] mg tablet 06/06 completed Medicati on ID: [id number] D uration Value: 30 Brand Name: dextroam [...] mg tablet 2018 active Medicati on ID: [id number] D uration Value: 90 Brand Name: lisinopr il Send Method: E-Prescr ibed Sub s Allowed: subs OK Melaniei al Instruct ion: TK 1 T PO QD [facility] eric[facility] : lisinopr il Not Available [...] aerosol inhaler 2018 active Medicati on ID: [id number] D uration Value: 50 Brand Name: ProAir [...] unit) capsule 06/06 completed Medicati on ID: [id number] D uration Value: 90 Brand Name: cholecal [...] Updated DateTime 06/06/2025 160.02 cm 24.8 kg/m2 97275.93 g Stephanie Velázquez [place] - [facility] 06/06/2025 10:05:26 Social History None recorded. Functional Status None recorded. Mental Status None recorded. Family History Nothing Reported. Medical History Condition Response Heart Problems Arthritis Y Anxiety Y Hypertension Y Asthma Y Past Encounters Encounter ID Performer Location Encounter Start Date Encounter Closed Date Diagnosis/Indication Diagnosis SNOMED-CT Code Diagnosis ICD10 Code Diagnosis IMO Codes Diagnosis Note [id number] MAXIMO ROBINS PA-C [facility] [address] [address] 06/06/2025 09:23:34 06/06/2025 12:24:03 Sensorineural hearing loss of bilateral ears 978644011 H90.3 Audiologic al evaluation results: Right ear: Normal sloping to severe sensorineu ral hearing loss with very good word recognitio n. Left ear: Normal through 2 kHz sloping to severe sensorineu ral hearing loss with excellent word recognitio n. Tympanomet ry: Right Ear:Type A Left Ear:Type A Bilateral tinnitus 04855 88469 102 H93.13 342382 Vertigo 114185466 R42 40351 Health Concerns Section Related Observation LastModified by Organization Detai ls LastModified Time None Recorded Concern Status LastModified by Organization Details LastModified Time None Recorded Advance Directives Directive None Recorded Payers Insurance Date Sequence Insurance Name Policy Number Policy Velasco Covered Member ID Velasco Member ID Guarantor Name 06/06/2025 1 [facility] Dane Calles [id number] Dane Calles 08/06/2025 1 [facility] - DOS ON OR AFTER 2023 - MEDICARE ADVANTAGE [place] & [place] (MEDICARE REPLACEMENT/AD VANTAGE - PPO) Dnae Calles [id number] Dane Calles 08/06/2025 2 [place] [facility] Dane aClles [id number] Dane Calles Notes Date Note Type Note [...] excision with Dr. Vasquez. MAXIMO ROBINS PA-C [address] [place] [address], [place], [address], [facility] - [facility] 06/06/2025 12:11:20
[2025-10-12 10:54] LABS: Prostate Specific Antigen 2.09 ng/mL (<0.05-4.0)
== END 2025-10-12 09:43 | disposition home or self-care (01) ==
LOC: HO.LAB 09:42
PROVIDERS: Visit Provider Urology
DX: N40.1 Benign prostatic hyperplasia with lower urinary tract symptoms (principal); R33.9 Retention of urine, unspecified; Z12.5 Encounter for screening for malignant neoplasm of prostate
CPT/HCPCS: 36415; 84153

== ENCOUNTER 2025-10-30 10:28 | Outpatient (REF) | payer OTHER, SELFPAY ==
[2025-10-30 11:28] LABS: MANUAL DIFF FLAG NO
[2025-10-30 11:37] LABS: Hematocrit 38.3 % (42.0-52.0); Hemoglobin 12.7 g/dl (14.0-18.0); Imm Gran Abs Auto 0.07 X10*3/uL (0.00-0.03); Imm Gran Pct Auto 0.7 % (0.0-0.4); Lymphocytes Absolute Auto 1.7 X10*3/uL (1.2-4.9); Mean Corpuscular HGB Conc 33.2 g/dl (31.0-36.0); Mean Corpuscular Hemoglobin 31.1 pg (27.0-33.0); Mean Corpuscular Volume 93.9 fL (80.0-98.0); NRBC Abs Auto 0.000 X10*3/uL (0.0-0.012); NRBC Pct Auto 0.0 /100WBC (0.0-0.2); Platelet Count 253 X10*3/uL (160-400); Red Blood Count 4.08 X10*6/uL (4.60-5.80); White Blood Count 10.2 X10*3/uL (4.8-10.8)
[2025-10-30 12:13] LABS: Alanine Aminotransferase 15 U/L (0-40); Albumin Level 4.2 g/dL (3.5-5.0); Alkaline Phosphatase 48 U/L (39-117); Anion Gap 10 (12-20); Aspartate Amino Transferase 25 U/L (5-37); Blood Urea Nitrogen 21 mg/dL (9-16); Calcium 9.4 mg/dL (8.4-10.2); Carbon Dioxide 30 mmol/L (22-29); Chloride 105 mmol/L (96-108); Cholesterol 114 mg/dL (<200); Estimated Glomerular Filt Rate > 60; HDL Cholesterol 46 mg/dL (>40); Potassium 4.7 mmol/L (3.3-5.1); Sodium 140 mmol/L (135-145); Total Protein 6.5 g/dL (6.5-8.0); Triglycerides 53 mg/dL (<150)
--- OUTSIDE RECORDS SUMMARY | 2025-10-30 13:08 | XMS_ITS | Encounter Summary ---
Author Organization [employer] Address [address] [place] [address] Care Team Providers Care Barback Name Role Phone Brittany Saldana MD Primary Care Provider + Darrin Hernandez Unavailable Unavailable Reason for Visit * Reason Onset Date Comments Med Refill 06/15/2024 Encounter Details Date Type Department Care Team (Late st Contact Info) Description 06/15/2024 Refill [facility] MED[facility]INE [address] [place] [address] Brittany Saldana MD [address] [place] [address] Acute insomnia Social History Tobacco Use Types [...] is your housing situation today? I have bset howard 02/29/[address] you [...] the past 12 months, has t he [employer], gas, oil or water company threatened to [...] Description 11/02/2025 11:15 AM EST Office Visit [facility] [address] [place] [address] Brittany Saldana MD [address] [place] [address] documented as of this encounter Goals Goal [...] documented as of this encounter Care Teams Barback Relationship Specialty Start Date End Date Brittany Saldana MD [address] [place] [address] PCP - General Family Medicine 05/08/20 Darrin Hernandez FNP [address] [place] [address] Nurse Practitioner Family Medicine 10/19/23 documented as of this encounter
--- OUTSIDE RECORDS SUMMARY | 2025-10-30 13:08 | XMS_ITS | Encounter Summary ---
Author Organization [employer] Address [address] [place] [address] Care Team Providers Care Reinforcing Steel Placer Name Role Phone Brittany Saldana MD Primary Care Provider + Darrin Hernandez Unavailable Unavailable Encounter Details Date Type Department Care Team (Latest Contact Info) Description 08/07/2022 Abstract [facility] CONVERSIONS Dental, Provider, DDS Social History [...] Description 11/02/2025 11:15 AM EST Office Visit [facility] [address] [place] [address] Brittany Saldana MD [address] [place] [address] documented as of this encounter Visit Diagnoses Not on filedocumented in this encounter Care Teams Reinforcing Steel Placer Relationship Specialty Start Date End Date Brittany Saldana MD [address] [place] [address] PCP - General Family Medicine 05/08/20 Darrin Hernandez FNP [address] [place] [address] Nurse Practitioner Family Medicine 10/19/23 documented as of this encounter
--- OUTSIDE RECORDS SUMMARY | 2025-10-30 13:08 | XMS_ITS | Encounter Summary ---
Author Organization [employer] Address [address] [place] [address] [place] [address] Care Team Providers Care Satellite Dish Technician Name Role Phone Brittany Saldana MD Primary Care Provider + Darrin Hernandez Unavailable Unavailable Reason for Visit * Reason Comments Med Refill Encounter Details Date Type Department Care Team (Late st Contact Info) Description 10/18/2025 Refill [facility] [address] [place] [address] Brittany Saldana MD [address] [place] [address] Social History Tobacco Use Types Packs/Day Years [...] Description 11/02/2025 11:15 AM EST Office Visit [facility] [address] [place] [address] Brittany Saldana MD [address] [place] [address] documented as of this encounter Goals Goal [...] documented as of this encounter Care Teams Satellite Dish Technician Relationship Specialty Start Date End Date Brittany Saldana MD [address] [place] [address] PCP - General Family Medicine 05/08/20 Darrin Hernandez FNP [address] [place] [address] Nurse Practitioner Family Medicine 10/19/23 documented as of this encounter
--- OUTSIDE RECORDS SUMMARY | 2025-10-30 13:08 | XMS_ITS | Encounter Summary ---
Author Organization [employer] Address [address] [place] [address] Care Team Providers Care Carpenter Repairer Name Role Phone Brittany Saldana MD Primary Care Provider + Darrin Hernandez Unavailable Unavailable Reason for Visit * Reason Onset Date Comments Referral 09/02/2023 Encounter Details Date Type Department Care Team (Late st Contact Info) Description 09/02/2023 Telephone [facility] [address] [place] [address] Brittany Saldana MD [address] [place] [address] Referral Social History Tobacco Use Types Packs/Day [...] from pt requesting a new referral for Pediatric Genetic Counselor Specialist, pt stated needs a hearing test. 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
--- OUTSIDE RECORDS SUMMARY | 2025-10-30 13:08 | XMS_ITS | Encounter Summary ---
Author Organization [employer] Address [address] [place] [address] [place] [address] Care Team Providers Care Tractor Mechanic Helper Name Role Phone Brittany Saldana MD Primary Care Provider + Darrin Hernandez Unavailable Unavailable Reason for Visit * Reason Comments Med Refill Encounter Details Date Type Department Care Team (Late st Contact Info) Description 04/21/2024 Refill [facility] [address] [place] [address] Brittany Saldana MD [address] [place] [address] Mild intermittent asthma without complication Social History [...] Description 11/02/2025 11:15 AM EST Office Visit [facility] [address] [place] [address] Brittany Saldana MD [address] [place] [address] documented as of this encounter Goals Goal [...] documented as of this encounter Care Teams Tractor Mechanic Helper Relationship Specialty Start Date End Date Brittany Saldana MD [address] [place] [address] PCP - General Family Medicine 05/08/20 Darrin Hernandez FNP [address] [place] [address] Nurse Practitioner Family Medicine 10/19/23 documented as of this encounter
--- OUTSIDE RECORDS SUMMARY | 2025-10-30 13:08 | XMS_ITS | Encounter Summary ---
Author Organization [employer] Address [address] [place] [address] Care Team Providers Care Service Desk Analyst Name Role Phone Brittany Saldana MD Primary Care Provider + Darrin Hernandez Unavailable Unavailable Reason for Visit * Reason Onset Date Comments Med Refill 06/11/2024 Encounter Details Date Type Department Care Team (Late st Contact Info) Description 06/11/2024 Refill [facility] [address] [place] [address] Brittany Saldana MD [address] [place] [address] Social History Tobacco Use Types Packs/Day Years [...] Description 11/02/2025 11:15 AM EST Office Visit [facility] [address] [place] [address] Brittany Saldana MD [address] [place] [address] documented as of this encounter Goals Goal Patient Goal Type Associated Problems Recent Progress Patient-Stated? Author Blood Pressure < 140/90 Blood Pressure 138/60(2024 11:10 AM EDT) No Venkatesh Skinner, PharmHillary Hemoglobin A1c < 7 Result Component 5(04/06/2025 9:03 AM EDT) No Venkatesh Skinner PharmD documented as of this encounter Visit Diagnoses Not on filedocumented in this encounter Additional Health Concerns Assessment Noted Time PHQ-9 Depression Total Score: 4 03/06/20 24 2:22 PM EDT documented as of this encounter Care Teams Service Desk Analyst Relationship Specialty Start Date End Date Brittany Saldana MD [address] [place] [address] PCP - General Family Medicine 05/08/20 Darrin Hernandez FNP [address] [place] [address] Nurse Practitioner Family Medicine 10/19/23 documented as of this encounter
--- OUTSIDE RECORDS SUMMARY | 2025-10-30 13:08 | XMS_ITS | Encounter Summary ---
Author Organization [employer] Address [address] [place] [address] Care Team Providers Care Weaver Hand Name Role Phone Brittany Saldana MD Primary Care Provider + Darrin Hernandez Unavailable Unavailable Reason for Visit * Reason Onset Date Comments Med Refill 04/16/2024 Encounter Details Date Type Department Care Team (Late st Contact Info) Description 04/16/[address] [facility] MEDICINE [address] [place] [address] Darrin Hernandez FNP PTSD (post-traumatic stress disorder) [...] Description 11/02/2025 11:15 AM EST Office Visit [facility] [address] [place] [address] Brittany Saldana MD [address] [place] [address] documented as of this encounter Goals Goal [...] documented as of this encounter Care Teams Weaver Hand Relationship Specialty Start Date End Date Brittany Saldana MD [address] [place] [address] PCP - General Family Medicine 05/08/20 Darrin Hernandez FNP [address] [place] [address] Nurse Practitioner Family Medicine 10/19/23 documented as of this encounter
--- OUTSIDE RECORDS SUMMARY | 2025-10-30 13:08 | XMS_ITS | Patient Health Record ---
Author Organization [employer] Address [address] [facility] [address] [place] [address] Support Name Relationship Address Phone Dane Calles Guarantor Unknown [phone] Allergies Allergen (clinical drug ingredient) Drug/Non Drug [...] Disorder due to type 2 diabetes mellitus (234988272) Type 2 diabetes mellitus with unspecified complications (E11.8) Active confirmed Problem Morbid obesity (disorder) (778842542) Morbid (severe) obesity due to excess calories (E66.01) Active confirmed Problem Mixed hyperlipidemia (079861144) Mixed hyperlipidemia (E78.2) Active confirmed Problem Alcohol dependence (67268372) Alcohol dependence, uncomplicated (F10.20) Active confirmed Problem Mild recurrent major depression (34217717) Major depressive disorder, recurrent, mild (F33.0) Active confirmed Problem 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, intractable, 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) Active confirmed Problem 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, intractable, without status epilepticus (G40.219) Active confirmed Problem Obstructive sleep apnea syndrome (disorder) (44361424) Obstructive sleep apnea (adult) (pediatric) (G47.33) Active confirmed Problem Essential hypertension (46787738) Essential (primary) hypertension (I10) Active confirmed Problem Gastro-esophageal reflux disease without esophagitis (621500314) Gastro-esophageal reflux disease without esophagitis (K21.9) Active confirmed Problem Neurofibromatosis (21704329) Neurofibromatosis , 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) Active confirmed Problem Somnolence (78887494) Somnolence (R40.0) Active confirmed Problem Attention deficit hyperactivity disorder, predominantly inattentive type (disorder) (58855900) Attention and concentration deficit (R41.840) Active confirmed Problem Body mass index 40+ - severely obese (031820128) Body mass index (BMI) 40.0-44.9, adult (Z68.41) Active confirmed Problem Lower urinary tract symptoms due to benign prostatic hypertrophy (68636893167356) Benign prostatic hyperplasia with lower urinary tract symptoms (N40.1) Active confirmed Problem Morbid obesity (906280535) Morbid obesity (E66.01) Active confirmed Plan Of Treatment No Information Medical (General) History Medical History History ICD Code hypertension, benign acid reflux BPH see Urology Attention deficit disorder Neurofibromatosis complex partial seizure disorder Surgical History Surgery Date(Month/Year) Umblical hernia repair 2004 Tonsellectomy Cyst in throat removed
--- OUTSIDE RECORDS SUMMARY | 2025-10-30 13:08 | XMS_ITS | Clinical Summary ---
Author Organization [facility] [employer] [facility] Prior to 04/14/25 Address [address] [place] [address] Care Team Providers Care Equipment Associate Name Role Phone Selvin Payan MD Primary Care Provider [phone] Allergies Active Allergy Reactions Criticality Noted Date [...] age to complete this topic Care Teams Equipment Associate Relationship Specialty Start Date End Date Selvin Payan MD [address] [place] [address] PCP - General Internal Medicine 03/08/18
--- OUTSIDE RECORDS SUMMARY | 2025-10-30 13:08 | XMS_ITS | Encounter Summary ---
Author Organization [employer] Address [address] [place] [address] 7 [place] [address] Care Team Providers Care Wood Heel Back Liner Name Role Phone Brittany Saldana MD Primary Care Provider + Darrin Hernandez Unavailable Unavailable Encounter Details Date Type Department Care Team (Late st Contact Info) Description 08/07/2025 Orders Only [facility] [address] [place] [address] ProviderDavid MD Social History Tobacco Use Types [...] AM EST Office Visit [facility] MEDICINE [address] [place] [address] Brittany Saldana MD [address] [place] [address] documented as of this encounter Goals Goal [...] Skinner, PharmD documented as of this encounter Procedures [...] documented as of this encounter Care Teams Wood Heel Back Liner Relationship Specialty Start Date End Date Brittany Saldana MD [address] [place] [address] PCP - General Family Medicine 05/08/20 Darrin Hernandez FNP [address] [place] [address] Nurse Practitioner Family Medicine 10/19/23 documented as of this encounter
--- OUTSIDE RECORDS SUMMARY | 2025-10-30 13:08 | XMS_ITS | Encounter Summary ---
Author Organization [employer] Address [address] [place] [address] [place] [address] Care Team Providers Care Marshmallow Machine Worker Name Role Phone Brittany Saldana MD Primary Care Provider + Darrin Hernandez Unavailable Unavailable Reason for Visit * Reason Comments Med Refill Encounter Details Date Type Department Care Team (Late st Contact Info) Description 10/19/2025 Refill [facility] MEDICINE [address] [place] [address] Brittany Saldana MD [address] [place] [address] Social History Tobacco Use Types Packs/Day Years [...] Description 11/02/2025 11:15 AM EST Office Visit [facility] MED[facility]INE [address] [place] [address] Brittany Saldana MD [address] [place] [address] documented as of this encounter Goals Goal [...] documented as of this encounter Care Teams Marshmallow Machine Worker Relationship Specialty Start Date End Date Brittany Saldana MD [address] [place] [address] PCP - General Family Medicine 05/08/20 Darrin Hernandez FNP [address] [place] [address] Nurse Practitioner Family Medicine 10/19/23 documented as of this encounter
--- OUTSIDE RECORDS SUMMARY | 2025-10-30 13:08 | XMS_ITS | Encounter Summary ---
Author Organization [employer] Address [address] [place] [address] [place] [address] Care Team Providers Care Brake Repair Supervisor Name Role Phone Brittany Saldana MD Primary Care Provider + Darrin Hernandez Unavailable Unavailable Reason for Visit * Reason Onset Date Comments Med Refill 05/20/2024 Encounter Details Date Type Department Care Team (Late st Contact Info) Description 05/20/2024 Refill [facility] MED[facility]INE [address] [place] [address] Darrin Hernandez FNP Social History Tobacco Use [...] 11:15 AM EST Office Visit [facility] MEDICINE [address] [place] [address] Brittany Saldana MD [address] [place] [address] documented as of this encounter Goals Goal [...] documented as of this encounter Care Teams Brake Repair Supervisor Relationship Specialty Start Date End Date Brittany Saldana MD [address] [place] [address] PCP - General Family Medicine 05/08/20 Darrin Hernandez FNP [address] [place] [address] Nurse Practitioner Family Medicine 10/19/23 documented as of this encounter
--- OUTSIDE RECORDS SUMMARY | 2025-10-30 13:08 | XMS_ITS | Encounter Summary ---
Author Organization [employer] Address [address] [facility] 7 [place] [address] Care Team Providers Care Door Repairer Bus Name Role Phone Brittany Saldana MD Primary Care Provider + Darrin Hernanedz Unavailable Unavailable Encounter Details Date Type Department Care Team (Latest Contact Info) Description 10/26/2025 Travel Social History Tobacco Use Types Packs/Day [...] Description 11/02/2025 11:15 AM EST Office Visit [facility] [address] [place] [address] Brittany Saldana MD [address] [place] [address] documented as of this encounter Goals Goal Patient Goal Type Associated Problems Recent Progress Patient-Stated? Author Blood Pressure < 140/90 Blood Pressure 138/60(2024 11:10 AM EDT) No Venkatesh Skniner, PharmD Decrease the frequency of unwanted emotions [...] documented as of this encounter Care Teams Door Repairer Bus Relationship Specialty Start Date End Date Brittany Saldana MD [address] [place] [address] PCP - General Family Medicine 05/08/20 Darrin Hernandez FNP [address] [place] [address] Nurse Practitioner Family Medicine 10/19/23 documented as of this encounter
--- OUTSIDE RECORDS SUMMARY | 2025-10-30 13:08 | XMS_ITS | Encounter Summary ---
Author Organization [employer] Address [address] [place] [address] Care Team Providers Care Beveling Machine Operator Name Role Phone Brittany Saldana MD Primary Care Provider + Darrin Hernandez Unavailable Unavailable Reason for Visit * Reason Onset Date Comments r/s appt 12/24/2022 Encounter Details Date Type Department Care Team (Late st Contact Info) Description 12/24/2022 Telephone [facility] MEDICINE [address] [place] [address] Brittany Saldana MD [address] [place] [address] r/s appt Social History Tobacco Use Types [...] states his ride was not there ontime. Repatcher tried booking but December [employer] was full. Please contact pt at [phone] documented in this encounter Plan of Treatment Upcoming Encounters Date Type Department Care Team (Late st Contact Info) Description 11/02/2025 11:15 AM EST Office Visit [facility] MEDICINE [address] [place] [address] Brittany Saldana MD [address] [place] [address] documented as of this encounter Visit Diagnoses Not on filedocumented in this encounter Additional Health Concerns Assessment Noted Time PHQ-9 Depression Total Score: 9 11/05/20 22 9:37 AM EST documented as of this encounter Care Teams Beveling Machine Operator Relationship Specialty Start Date End Date Brittany Saldana MD [address] [place] [address] PCP - General Family Medicine 05/08/20 Darrin Hernandez FNP [address] [place] [address] Nurse Practitioner Family Medicine 10/19/23 documented as of this encounter
--- OUTSIDE RECORDS SUMMARY | 2025-10-30 13:08 | XMS_ITS | Encounter Summary ---
Author Organization [employer] Address [address] [place] [id number] Care Team Providers Care Junction Maker Name Role Phone Brittany Saldnaa MD Primary Care Provider + Darrin Hernandez Unavailable Unavailable Reason for Visit * Reason Onset Date Comments Med Refill 06/19/2024 Encounter Details Date Type Department Care Team (Late st Contact Info) Description 06/19/2024 Refill [facility] [address] [place] [address] Brittany aSldana MD [address] [place] [address] Alcoholism (CMS/HCC); Essential (primary) hypertension Social History [...] 11:15 AM EST Office Visit [facility] [address] [place], [place] [phone] Brittany Saldana MD [address] [place] [address] documented as of this encounter Goals Goal [...] documented as of this encounter Care Teams Junction Maker Relationship Specialty Start Date End Date Brittany Saldana MD [address] [place] [address] PCP - General Family Medicine 05/08/20 Darrin Hernandez FNP [address] [place] [address] Nurse Practitioner Family Medicine 10/19/23 documented as of this encounter
--- OUTSIDE RECORDS SUMMARY | 2025-10-30 13:08 | XMS_ITS | Encounter Summary ---
Author Organization [employer] Address [address] [place] [address] [place] [address] Care Team Providers Care Adjunct Psychology Instructor Name Role Phone Brittany Saldana MD Primary Care Provider + Darrin Hernandez Unavailable Unavailable Reason for Visit * Reason Comments Med Refill Encounter Details Date Type Department Care Team (Late st Contact Info) Description 10/23/2025 Refill [facility] [address] [place] [address] Brittany Saldana MD [address] [place] [address] Attention deficit hyperactivity disorder, predominantly inattentive type Social History Tobacco Use Types Packs/Day [...] the past 12 months, has t he [employer] oil [employer] company threatened to [...] Description 11/02/2025 11:15 AM EST Office Visit [facility] [address] [place] [address] Brittany Saldana MD [address] [place] [address] documented as of this encounter Goals Goal [...] Attention deficit hyperactivity disorder, predominantly inattentive type documented in this encounter Additional Health Concerns Assessment Noted Time PHQ-9 Depression Total Score: 8 08/22/20 25 11:20 AM EDT documented as of this encounter Care Teams Adjunct Psychology Instructor Relationship Specialty Start Date End Date Brittany Saldana MD [address] [place] [address] PCP - General Family Medicine 05/08/20 Darrin Hernandez FNP [address] [place] [address] Nurse Practitioner Family Medicine 10/19/23 documented as of this encounter
--- OUTSIDE RECORDS SUMMARY | 2025-10-30 13:08 | XMS_ITS | Encounter Summary ---
Author Organization [employer] Address [address] [place] [address] Care Team Providers Care Traffic Clerk Name Role Phone Brittany Saldana MD Primary Care Provider + Darrin Hernandez Unavailable Unavailable Reason for Visit * Reason Comments Med Refill Encounter Details Date Type Department Care Team (Late st Contact Info) Description 06/03/2023 Refill [facility] [address] [place] [address] Darrin Hernandez FNP Depression, unspecified depression type [...] Description 11/02/2025 11:15 AM EST Office Visit [facility] [address] [place] [address] Brittany Saldana MD [address] [place] [address] documented as of this encounter Visit Diagnoses Diagnosis Depression, unspecified depression type documented in this encounter Additional Health Concerns Assessment Noted Time PHQ-9 Depression Total Score: 11 023 10:47 AM EDT documented as of this encounter Care Teams Traffic Clerk Relationship Specialty Start Date End Date Brittany Saldana MD [address] [place] [address] PCP - General Family Medicine 05/08/20 Darrin Hernandez FNP [address] [place] [address] Nurse Practitioner Family Medicine 10/19/23 documented as of this encounter
--- OUTSIDE RECORDS SUMMARY | 2025-10-30 13:08 | XMS_ITS | Encounter Summary ---
Author Organization [employer] Address [address] [place] [address] 7 [place] [address] Care Team Providers Care Merchandising Assistant Name Role Phone Brittany Saldana MD Primary Care Provider + Darrin Hernandez Unavailable Unavailable Reason for Visit * Reason Onset Date Comments Appointment 09/10/2023 Encounter Details Date Type Department Care Team (Late st Contact Info) Description 09/10/2023 Telephone [facility] [address] [place] [address] Misbah Kerraris [address] [place] [address] Appointment Social History Tobacco Use Types Packs/Day [...] cleaning appt. Last appt he had in [place] was deep leaning in September and the [...] Description 11/02/2025 11:15 AM EST Office Visit [facility] [address] [place] [address] Brittany Saldana MD [address] [place] [address] documented as of this encounter Visit Diagnoses Not on filedocumented in this encounter Additional Health Concerns Assessment Noted Time PHQ-9 Depression Total Score: 4 09/06/20 11:30 AM EDT documented as of this encounter Care Teams Merchandising Assistant Relationship Specialty Start Date End Date Brittany Saldana MD [address] [place] [address] PCP - General Family Medicine 05/08/20 Darrin Hernandez FNP [address] [place] [address] Nurse Practitioner Family Medicine 10/19/23 documented as of this encounter
--- OUTSIDE RECORDS SUMMARY | 2025-10-30 13:09 | XMS_ITS | Encounter Summary ---
Author Organization [employer] Address [address] [place] [address] Care Team Providers Care Hotel Engineer Name Role Phone Brittany Saldana MD Primary Care Provider + Darrin Hernandez Unavailable Unavailable Reason for Visit * Reason Onset Date Comments Referral 09/24/2023 Encounter Details Date Type Department Care Team (Late st Contact Info) Description 09/24/2023 Telephone [facility] [address] [place] [address] Brittany Saldana MD [address] [place] [address] Referral Social History Tobacco Use Types Packs/Day [...] AM EST [place] [facility] new [place] for Occupational therapy for weakness in hands. States they received the referral for Occupational therapy but dx says hip pain. Please fax to [phone] Any questions, please contact sri at [phone] documented in this encounter Plan of Treatment Upcoming Encounters Date Type Department Care Team (Late st Contact Info) Description 11/02/2025 11:15 AM EST Office Visit [facility] [address] [place] [address] Brittany Saldana MD [address] [place] [address] documented as of this encounter Visit Diagnoses Not on filedocumented in this encounter Additional Health Concerns Assessment Noted Time PHQ-9 Depression Total Score: 4 09/06/20 23 11:30 AM EDT documented as of this encounter Care Teams Hotel Engineer Relationship Specialty Start Date End Date Brittany Saldana MD [address] [place] [address] PCP - General Family Medicine 05/08/20 Darrin Hernandez FNP [address] [place] [address] Nurse Practitioner Family Medicine 10/19/23 documented as of this encounter
--- OUTSIDE RECORDS SUMMARY | 2025-10-30 13:09 | XMS_ITS | Clinical Summary ---
Author Organization [employer] Address [address] [place] [address] [address] [place] [address] Care Team Providers Care [employer] Name Role Phone Agueda Rousseau MD Primary Care Provider + Darrin Hernandez [...] MOUTH ONCE DAILY 022 Active Lancets 28G miscIndications: Controlled type 2 diabetes mellitus without complication, without long-term current use of insulin ([facility]) Use 1 lancet to monitor blood glucose twice daily 100 each 11 023 Active meclizine (Antivert) 25 MG tabletIndication s:Vertigo TAKE 1 TABLET BY MOUTH THREE TIMES DAILY IN THE MORNING, AT NOON, AND AT BEDTIME NEEDED FOR DIZZINESS 90 tablet 024 Active glucose blood (OneTouch Ultra) test stripIndications :Type 2 diabetes mellitus without complication, without long-term current use of insulin ([facility]) TEST BLOOD SUGAR TWICE DAILY 100 strip 11 024 Active atorvastatin (Lipitor) 20 MG tablet TAKE ONE TABLET BY MOUTH AT BEDTIME (FOR CHOLESTEROL) 30 tablet 11 01/06/2 025 Active traZODone (Desyrel) 100 MG tabletIndication s:Depression, unspecified depression type TAKE TWO TABLETS BY MOUTH AT BEDTIME 60 tablet Active albuterol 108 (90 Base) MCG/ACT inhalerIndicatio ns:Mild intermittent asthma without complication INHALE 2 PUFFS [...] 1 Active docusate sodium (Colace) 100 MG capsuleIndicatio ns:Constipation, unspecified constipation type TAKE 1 CAPSULE BY MOUTH TWICE DAILY NEEDED 180 capsule 2 10/09/20 3:10 PM EST Active fluticasone (Flonase) 50 MCG/ACT nasal sprayIndications :Chronic rhinitis USE 1-2 SPRAYS EACH NOSTRIL ONCE DAILY NEEDED 16 g Active melatonin 5 MG tabletIndication s:Acute insomnia TAKE ONE TABLET BY MOUTH AT BEDTIME 30 tablet Active polyethylene glycol, PEG, 3350 (MiraLax) 17 GM/SCOOP powder Take 17 g by mouth if needed each day (constipation >1d). 527 g 2025 Active spironolactone (Aldactone) 25 MG tablet Take 25 mg by mouth Once per day. Rx'd by cardiology Active hydrALAZINE (Apresoline) 25 MG tablet Take 25 mg by mouth in the morning and 25 mg at noon and 25 mg in the evening. Rx'd by diamond cleaner . Active felodipine ER (Plendil) 10 MG 24 hr tablet Take 10 mg by mouth Once per day. Do not crush, chew, or split. Rx'd by cardiology Active lisinopril 30 MG tablet Take 30 mg by mouth Once per day. Cardiology increased on 08/14/25 Active cloNIDine (Catapres) 0.3 MG tabletIndication s:PTSD (post-traumatic stress disorder) TAKE 1 TABLET BY MOUTH AT BEDTIME 1 tablet 11 025 Active Multiple Vitamins-Mineral s (CertaVite Senior/Antioxida nt) tabletIndication s:Essential (primary) hypertension TAKE ONE TABLET BY MOUTH EVERY MORNING 30 tablet 11 025 Active ferrous sulfate 325 (65 Fe) MG EC tablet TAKE ONE TABLET BY MOUTH ONCE DAILY WITH BREAKFAST, DO NOT CRUSH OR CHEW. 30 tablet 11 025 Active gabapentin (Neurontin) 400 MG capsuleIndicatio ns:Type 2 diabetes mellitus without complication, without long-term current use of insulin (HCC) TAKE ONE CAPSULE BY MOUTH THREE TIMES DAILY 90 capsule 2 Active methylphenidate ER (Concerta) 54 MG CR tabletIndication s:Attention deficit hyperactivity disorder, predominantly inattentive type TAKE 1 TABLET BY MOUTH EVERY MORNING DO NOT BREAK, CRUSH, DISSOLVE OR CHEW 28 tablet 10/26/20 25 9:44 AM EST Active ferrous sulfate 325 (65 Fe) MG EC tablet TAKE ONE TABLET BY MOUTH ONCE DAILY WITH BREAKFAST, DO NOT CRUSH OR CHEW. 30 tablet 2 025 2024 Discontinued gabapentin (Neurontin) 400 MG capsuleIndicatio ns:Type 2 diabetes mellitus without complication, without long-term current use of insulin (HCC) TAKE ONE CAPSULE BY MOUTH THREE TIMES DAILY 90 capsule 2 025 2024 Discontinued methylphenidate ER (Concerta) 54 MG CR tablet TAKE 1 TABLET BY MOUTH EVERY MORNING DO NOT BREAK, CRUSH, DISSOLVE OR CHEW 28 tablet 025 2024 Discontinued(R eorder (will not trigger notification to Pharmacy)) methylphenidate ER (Concerta) 54 MG CR tablet TAKE 1 TABLET BY MOUTH EVERY MORNING DO NOT BREAK, CRUSH, DISSOLVE OR CHEW 28 tablet 025 2024 Discontinued(R eorder (will not trigger notification to Pharmacy)) methylphenidate ER (Concerta) 54 MG CR tabletIndication s:Attention deficit hyperactivity disorder, predominantly inattentive type TAKE 1 TABLET BY MOUTH EVERY MORNING DO NOT BREAK, CRUSH, DISSOLVE OR CHEW 28 tablet 025 2024 Discontinued(R eorder (will not trigger notification to Pharmacy)) Active Problems Problem Noted Date Diagnosed Date LAURA (generalized anxiety disorder) 08/28/2025 PTSD (post-traumatic stress disorder) 08/22/2025 Assessment & Plan (09/12/2025 1:10 PM EDT): Continue clonidine + trazodone + FU w MH provider -He wants to be referred to [facility] Psychiatry, will reach out to counselor for [...] EDT): - obtain holter monitor from [facility] ordered by weight management program - will [...] and fu with . Order TSH/testosterone levels, rn psychiatric input appreciated. Iliopsoas bursitis of left hip [...] IZs -RSV pending not available today in [facility] pharmacy Advise to have it at [...] as treatment engagement. PLAN: Follow up with [facility]: Recommended for follow-up: during AUD appts. Patient [...] he he was not contacted yet, per women specialist, [employer] contact him on 05/11/23 at 9:47 am, but he didn't responded, vm was left. I provide him with [employer] information for him to follow up, he agreed. Provided education around integrated medicine and the options of follow up BE's as needed. Provided contact information should questions or concerns arise. Plan: Narendra will engage in effective coping mechanisms provided at least 1 per day for 6 months. He will be Contacting [employer] for him to engage in Ind. Therapy [...] as treatment engagement. PLAN: Follow up with [facility]: Recommended for follow-up: during AUD appts. Patient [...] management. For any issues or concerns contact [facility]. Continue with therapist as usual. I have wished him well. He agrees with the plan. Assessment & Plan (08/28/2025 9:40 AM EDT): >>ASSESSMENT AND PLAN FOR RECURRENT MAJOR DEPRESSIVE DISORDER, IN PARTIAL REMISSION ([facility]) WRITTEN ON 08/22/2025 2:33 PM BY AGUEDA ROUSSEAU MD >>ASSESSMENT AND PLAN FOR DEPRESSION WRITTEN ON 03/21/2024 12:02 PM BY VICTOR M SERAN - doing well on current medications, feels safe at home - continue on AUD program, will continue to prescribe Clonidine + Abilify + Trazodone + Bupropion + Gabapentin at bedtime. Assessment & Plan (08/28/2025 9:40 AM EDT): >>ASSESSMENT AND PLAN FOR RECURRENT MAJOR DEPRESSIVE DISORDER, IN PARTIAL REMISSION ([facility]) WRITTEN ON 12/07/2024 11:25 AM BY KYLE NAVARRETE Pt is doing well on Trazodone and he takes adderall for ADD. FU closely with psychotherapist, continue taking medications as above. Pt feels safe at home and is able to reach out for safety. 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 Continue Lisinopril 7.5 [...] exercise, life style modifications, diet, referral to sap specialist. Discussed re lower calorie intake, increase dietary fiber Pt insisted on wt reduction program, [facility] program given today Encounters * This document contains information received from the source organization and may not represent a complete record from that organization. Date Type Department Care Team Description 10/26/2025 Travel 10/24/2025 10:00 AM EST Office Visit [facility] MEDICINE [address] [place] [phone] Migue Stephens MD Alcohol use disorder (Primary Dx) 10/24/2025 Patient Outreach [facility] [address] [place] [address] Agueda Rousseau MD Pre-visit Planning (SDOH screening negative and tobacco screening negative) 10/24/2025 Travel 10/23/2025 Patient Outreach [facility] [address] [place] [address] Rolando Amos Recovery Supports 10/23/2025 Refill [facility] [address] [place] [address] Agueda Rousseau MD Attention deficit hyperactivity disorder, predominantly inattentive type 10/19/2025 Refill [facility] [address] [place], [place] [phone] Agueda Rousseau MD 10/18/2025 Refill [facility] [address] [place] [address] Agueda Rousseau MD 10/15/2025 Refill [facility] [address] [place] [address] Agueda Rousseau MD Type 2 diabetes mellitus without complication, without long-term current use of insulin (HCC) 10/09/2025 Patient Outreach [facility] [address] [place] [address] Ted Olvera [facility] 09/27/2025 Patient Outreach [facility] [address] [place] [address] Corbin Aguilar [facility] 09/26/2025 10:00 AM EST Office Visit [address] [address] Migue Stephens MD Alcohol use disorder (Primary Dx) 09/26/2025 Travel 09/25/2025 Patient Outreach [facility] [address] [place] [address] Ted Olvera [facility] 09/21/2025 Orders Only GENERIC EXTERNAL DATA DEPARTMENT Provider, Generic External Data 09/19/2025 10:00 AM EST Office Visit [address] [address] Migue Stephens MD Alcohol use disorder (Primary Dx) 09/19/2025 Refill [facility] [address] [place] [address] Agueda Rousseau MD 09/19/2025 Travel 09/18/2025 Patient Outreach [address] [address] Ted Olvera [facility] 09/14/2025 Patient Outreach [address] [address] Rolando Amos [facility] 09/13/2025 1:00 PM EDT Office Visit [facility] OPTOMETRY [address] [place] [address] Renetta Mitchell, OD History of type 2 diabetes mellitus (Primary Dx); Retinal tear of right eye; Vitreoretinal tuft of left eye; Epiretinal membrane, right eye; History of neurofibromatosis (CMS/HCC) (HCC); Pseudophakia, both eyes; Presbyopia 09/13/2025 Patient Outreach [facility] [address] [place] [address] Corbin Aguilar [facility] 09/13/2025 Refill [facility] [address] [place] [address] Agueda Rousseau MD Essential (primary) hypertension 09/13/2025 Travel 09/12/2025 11:00 AM EDT Office Visit [facility] [place] [address] Agueda Rousseau MD Essential (primary) hypertension (Primary Dx); PTSD (post-traumatic stress disorder) 09/12/2025 Travel 09/11/[address] [address] Agueda Rousseau MD CHART PREP 09/11/2025 Patient Outreach [address] [address] Rolando Amos 09/11/2025 Travel 09/05/2025 10:00 AM EDT Office Visit [address] [address] Migue Stephens MD Alcohol use disorder (Primary Dx) 09/05/2025 Travel 08/30/2025 Patient Outreach [address] [address] Ted Olvera [facility] 08/29/2025 10:00 AM EDT Office Visit [address] [address] Migue Stephens MD Alcohol use disorder (Primary Dx) 08/29/2025 Travel 08/28/2025 Patient Outreach [address] [address] Ted Olvera [facility] 08/25/2025 Travel 08/24/2025 Orders Only GENERIC EXTERNAL DATA DEPARTMENT Provider, Generic External Data 08/23/2025 Patient Outreach [address] [address] Corbin Aguilar [facility] 08/22/2025 11:15 AM EDT Office Visit [address] [address] Agueda Rousseau MD Attention deficit hyperactivity disorder, predominantly inattentive type (Primary Dx); Essential (primary) hypertension; PTSD (post-traumatic stress disorder); Obstructive sleep apnea syndrome; Encounter for vaccination; Encounter for immunization 08/22/2025 Travel 08/21/2025 Telephone [facility] [address] [place] [address] Agueda Rousseau MD chart prep 08/16/2025 Patient Outreach [address] [address] Corbin Aguilar [facility] 08/15/2025 10:00 AM EDT Office Visit [address] [address] Migue Stephens MD Alcohol use disorder (Primary Dx) 08/15/2025 Travel 08/14/2025 Patient Outreach [address] [address] Ted Olvera [facility] 08/08/2025 10:00 AM EDT Office Visit [address] [address] Migue Stephens MD Alcohol use disorder (Primary Dx); Essential (primary) hypertension 08/08/2025 Travel 08/07/2025 1:15 PM EDT Office Visit [address] [address] Brandon Caballero MD Alcohol use disorder, severe, in sustained remission (CMS/HCC) (Primary Dx) 08/07/2025 Patient Outreach [address] [address] Corbin Augilar [facility] 08/07/2025 Travel 08/07/2025 Orders Only [facility] [address] [place] [address] David Potter MD 08/01/2025 10:00 AM EDT Office Visit [address] [address] Migue Stephens MD Alcohol use disorder (Primary Dx) 08/01/2025 Travel from Last 3 Months Immunizations Immunization [...] Description 11/02/2025 11:15 AM EST Office Visit [facility] [address] [place] [address] Agueda Rousseau MD [address] [place] [address] Health Maintenance Due Date Last Done Comments CT Colonography 1957 Dental Oral Exam 1957 Dental Prophylaxis 1957 Dental X-Ray: Bitewings 1957 Dental X-Ray: Full Mouth 1957 FIT DNA/Cologuard 1957 FIT 1957 FOBT 1957 Sigmoidoscopy 1957 Colonoscopy 09/19/2025 09/19/2024 Colorectal Cancer Screening 09/19/2025 Diabetes: Hemoglobin A1C 10/07/2025 025, 12/07/2024, 07/26/2024, Additional history exists Alcohol/Substance Use Screening 12/07/2025 12/07/2024 COVID-19 Vaccine ( season) 2026 08/22/2025, 09/09/2024, 08/17/2023, Additional history exists Lipid Panel 04/06/2026 04/06/2025, 12/16, 02/24/2023, Additional history exists Diabetes: Urine Protein Screening 04/10/2026 04/10/2025, 05/02/2024, 12/09/2021 Diabetes: Foot Exam 06/19/2026 06/19/2025, 06/19/2025, 06/19/2025, Additional history exists Depression Screening 08/28/2026 08/28/2025, 08/22/20 Tobacco Screening 09/13/2026 09/13/2025 SDOH Screening 10/24/2026 10/24/2025 Eye Exam 09/13/2027 09/13/2025, 08/17, 09/13/2025, Additional [...] Aged 60 years or older Completed 02/12/2024 Influenza Vaccine Completed 08/22/2025, , 08/17/2023, Additional [...] Name Priority Date/Time Associated Diagnosis Comments VITAMIN B1 Routine 09/21/2025 10:10 AM EST VITAMIN A Routine 09/21/2025 10:10 AM EST ZINC Routine 09/21/2025 10:10 AM EST VITAMIN B12/FOLATE, [...] Vitamin D 25-OH Total 44.2 >30 ng/mL LABS Comment: Health Based Reference Values*< 20 ng/mL [id number] ng/mL Insufficient> 30 ng/mL Sufficient*Mervat YU. N [...] Address [facility] Co de Phone Number LABS [address] [place] [phone] * (ABNORMAL) Vitamin B12 (Cobalamin) and Folate Panel, Serum (09/21/2025 10:10 AM EST) Pathologist [facility] Vitamin B12 1,101(H) 200 - 900 pg/mL LABS Comment:NORMAL 200-900 PG/ML INDETERMINATE 160-199 PG/ML DEFICIENT < 160 PG/ML Folate 13.5 > or = 4.0 ng/mL LABS Comment:Reference Values:> o r = 4.0 [...] Address [facility] Co de Phone Number LABS [address] [place] [phone] * (ABNORMAL) CBC auto differential (09/21/2025 10:10 AM EST) White Blood Count 9.0 4.8 - 10.8 X10*3/uL LABS Red Blood Count 4.06(L) 4.60 - 5.80 X10*6/uL LABS Hemoglobin 12.5(L) 14.0 - 18.0 g/dl LABS Hematocrit 38.0(L) 42.0 - 52.0 % LABS Mean Corpuscular Volume 93.6 80.0 - 98.0 fL LABS Mean Corpuscular Hemoglobin 30.8 27.0 - 33.0 pg LABS Mean Corpuscular HGB Conc 32.9 31.0 - 36.0 g/dl LABS Red Cell Distribution Width 13.0 11.0 - 16.0 % LABS Platelet Count 220 160 - 400 X10*3/uL LABS Mean Platelet Volume 9.3(L) 9.4 - 12.4 fL LABS Neutrophils Percent Auto 72.9 45 - 73 % LABS Imm Gran Pct Auto 0.4 0.0 - 0.4 % LABS Lymphocytes Percent Auto 16.9(L) 20 - 40 % LABS Monocytes Percent Auto 7.4 2 - 11 % LABS Eosinophils Percent Auto 1.7 0 - 4 % LABS Basophils Percent Auto 0.7 0 - 2 % LABS NRBC Pct Auto 0.0 0.0 - 0.2 /100WBC LABS Neutrophils Absolute Auto 6.5 2.0 - 8.3 x10*3/uL LABS Imm Gran Abs Auto 0.04(H) 0.00 - 0.03 X10*3/uL LABS Lymphocytes Absolute Auto 1.5 1.2 - 4.9 X10*3/uL LABS Monocytes Absolute Auto 0.7 0.1 - 1.2 X10*3/uL LABS Eosinophils Absolute Auto 0.2 0.0 - 0.4 X10*3/uL LABS Basophils Absolute Auto 0.1 0.0 - 0.2 X10*3/uL LABS NRBC Abs Auto 0.000 0.0 - 0.012 X10*3/uL LABS 09/21/2025 10:1 0 AM EST 09/21/2025 10:13 AM EST us Generic External Data Provider LAB BLOOD ORDERAB LES Final Result LABS [address] [place] [phone] * (ABNORMAL) Iron And Total Iron Binding Capacity (09/21/2025 10:10 AM EST) Iron 108 45 - 160 mcg/dL LABS Total Iron Binding Capacity 216(L) 228 - 428 mcg/dL LABS Percent Iron Saturation 50 15 - 50 % LABS Unsaturated Iron Binding 108 ug/dL LABS 09/21/2025 10:1 0 AM EST 09/21/2025 10:13 AM EST us Generic External Data Provider LAB BLOOD ORDERAB LES Final Result Performing Organization Address [facility] de Phone Number LABS [address] [place] [phone] * Zinc (09/21/2025 10:10 AM EST) Zinc 64 60 - 130 mcg/dL LABS Comment:This test was develo ped and its analytical performancecharacteristics have been determined by [employer] [place], [place]. It hasnot been cleared or approved by the U.S. Food and DrugAdministration. This assay has been validated pursuantto the CLIA regulations and is used for clinicalpurposes.THIS TEST WAS PERFORMED AT:[employer] [place] [address]JJWAXQABILLIE AWAD MD,PHD 09/21/2025 10:1 0 AM EST 09/21/2025 10:13 AM EST us Generic External Data Provider LAB BLOOD ORDERAB LES Final Result Performing Organization Address [facility] Co de Phone Number LABS [address] [place] [phone] * Vitamin A (09/21/2025 10:10 AM EST) Pathologist [facility] Vitamin A (Retinol) 56 38 - 98 mcg/dL LABS Comment:Vitamin supplementat ion within 24 hours prior toblood draw may affect the accuracy of the results.This test was developed and its analytical performancecharacteristics have been determined by [employer] [place], [place]. It hasnot been cleared or approved by the U.S. Food and DrugAdministration. This assay has been validated pursuantto the CLIA regulations and is used for clinicalpurposes.THIS TEST WAS PERFORMED AT:[employer] [place] [address]RWWXWTZBILLIE AWAD MD,PHD 09/21/2025 10:1 0 AM EST 09/21/2025 10:13 AM EST Generic External Data Provider LAB BLOOD ORDERAB LES Final Result Performing Organization Address City/[facility]/ZIP Co de Phone Number LABS [address] [place] [phone] * C-reactive Protein (09/21/2025 10:10 AM EST) [facility] C Reactive Protein <0.10 < or = 0.50 mg/dL LABS 09/21/2025 10:1 0 AM EST 09/21/2025 10:13 AM EST Generic External Data Provider LAB BLOOD ORDERAB LES Final Result Performing Organization Address [facility] Co de Phone Number LABS [address] [place] [phone] * (ABNORMAL) Vitamin B1 (09/21/2025 10:10 AM EST) Pathologist [facility] Vitamin B1 180(A) 8 - 30 nmol/L LABS Comment:Vitamin supplementat ion within 24 hours prior toblood draw may affect the accuracy of the results.This test was developed and its analytical performancecharacteristics have been determined by [employer] [place], [place]. It hasnot been cleared or approved by the U.S. Food and DrugAdministration. This assay has been validated pursuantto the CLIA regulations and is used for clinicalpurposes.THIS TEST WAS PERFORMED AT:[employer]/[facility] [place] [address]BMXTARPBILLIE AWAD MD,PHD 09/21/2025 10:1 0 AM EST 09/21/2025 10:13 AM EST Generic External Data Provider LAB BLOOD ORDERAB LES Final Result Performing Organization Address [facility] Co de Phone Number LABS [address] [place] [phone] * Ferritin (09/21/2025 10:10 AM EST) Pathologist [facility] Ferritin 115 20 - 250 ng/mL LABS 09/21/2025 10:1 0 AM EST 09/21/2025 10:13 AM EST Generic External Data Provider LAB BLOOD ORDERAB LES Final Result Performing Organization Address [facility] Phone Number LABS [address] [place] [phone] * (ABNORMAL) Basic Metabolic Panel (08/24/2025 9:58 AM EDT) Sodium 141 135 - 145 mmol/L LABS Potassium 4.6 3.3 - 5.1 mmol/L LABS Chloride 104 96 - 108 mmol/L LABS Carbon Dioxide 30(H) 22 - 29 mmol/L LABS Anion Gap 12 12 - 20 LABS Urea Nitrogen (BUN) 19(H) 9 - 16 mg/dL LABS Creatinine, Serum 1.12 0.5 - 1.4 mg/dL LABS Estimated Glomerular Filt Rate >60 LABS Comment:Chronic Kidney Disea se: Estimated GFR < 60 mL/min/[id number] Kidney Disease: Estimated GFR < 15 mL/min/1.73m2 Glucose 93 60 - 115 mg/dL LABS Calcium 9.7 8.4 - 10.2 mg/dL LABS 08/24/2025 9:58 AM EDT 08/24/2025 9:58 AM EDT us Generic External Data Provider LAB BLOOD ORDERAB LES Final Result Performing Organization Address [facility]/ZIP Co de Phone Number LABS [address], [place] [phone] * CT CHEST WO CONTRAST (07/31/2025 9:22 AM EDT) Anatomical Region Laterality Modality Computed Tomogra phy Historical Provider IMG CT PROCEDURES Final R esult * Albumin, Random Urine W/Creatinine (04/10/2025 10:21 AM EDT) Creatinine, Urine 61.10 mg/dL [facility] Microalbumin Urine 14.0 mg/L [facility] Microalbum Creatinine Ratio Ur 22.9 <30 ug/mg cr LABS Comment:Albumin/Creatinine R atio Reference Ranges: Normal: < 30 ug/mg creatinine Microalbuminuria: 30 - 300 ug/mg creatinineClinical Albuminuria: > 300 ug/mg creatinine 04/10/2025 10:2 1 AM EDT 04/10/2025 11:06 AM EDT us Agueda Rousseau MD LAB URINE ORDERABLES Fin al Result Performing Organization Address City/[facility]/ZIP Co de Phone Number LABS [address], [place] [phone] * Hemoglobin A1c (04/06/2025 9:03 AM EDT) Hemoglobin A1c 5.0 <6.0 % [facility] LABS Comment:Hemoglobin A1C Refer ence Range Adults: 4.8 - 6.0 % Non diabetic: < 6.0 % Goal: < 7.0 %Additional Action Suggested: > 8.0 %Note: Hemoglobin A1c results are invalid for patients with abnormal amounts of HbF. Blood transfusions may impact the HbA1c concentration in the patient sample. Estimated Average Glucose 97 mg/dL LABS Comment:eAG = Estimated ave rage glucose which is %A1C expressed asaverage glucose, using the formula of the L0J-CsdzepiDjaygsa Glucose study (ADAG), Diabetes Care, Vol.31,#8,Jun. 2007 04/06/2025 9:03 AM EDT 04/06/2025 11:03 AM EDT us Generic External Data Provider LAB BLOOD ORDERAB LES Final Result LABS [address] [place] [phone] * (ABNORMAL) Lipid Panel, Standard (04/06/2025 9:03 AM EDT) Triglycerides 63 <150 mg/dL [facility] LABS Comment:Desirable Triglyceri de: less than 150 mg/dLBorderline High Triglyceride 150-199 mg/dLHigh Triglyceride: 200-499 mg/dLVery High Triglyceride: greater than or equal to 5OO mg/dL Cholesterol 124 <200 mg/dL LABS Comment:Desirable Cholestero l: less than 200 mg/dLBorderline High Cholesterol: 200-239 mg/dLHigh Cholesterol: greater than 239 mg/dL LDL Cholesterol Calculated 75 <100 mg/dL LABS Comment:Desirable LDL: less than 100 mg/dLNear Optimal/Above Optimal LDL: 110- 129 mg/dLBorderline High LDL: 130-159 mg/dLHigh LDL: 160-189 mg/dLVery High LDL: greater than or equal to 190 mg/dL HDL Cholesterol 37(L) >40 mg/dL [facility] LABS Comment:Desirable HDL: great er than 40 mg/dL Note: This HDL assay may give artificially low results in patients with liver disease. 04/06/2025 9:03 AM EDT 04/06/2025 11:23 AM EDT us Generic External Data Provider LAB BLOOD ORDERAB LES Final Result Performing Organization Address [facility]/ZIP Co de Phone Number LABS [address] [place] [phone] [phone] * (ABNORMAL) Hm Colonoscopy (09/19/2024) Colonoscopy Normal Normal LABS Comment:poor prep us Agueda Rousseau MD HEALTH MAINTENANCE Final Result Performing Organization Address [facility] de Phone Number LABS [address] [place] [phone] [phone] * HEPATITIS C AB W/REFL TO [...] a test for HCV RNA (test code 39439) is suggested. For additional information please refer to http://education.Thumbtack/faq/HFE31s6 (This link is being provided for informational/ educational purposes only.) 12/09/2021 11:1 3 AM EST us Lulu Garcia ANP HISTORICAL/NON ORDERABLE LABS Fi nal Result Performing Organization Address [facility] Co de Phone Number [facility] [address] from Last 3 Months or Most Recently Relevant to Health Maintenance Insurance [employer] OPTIONS (HMO D-SNP) [facility] STANDARD Care Teams Central Service Supply Distributor Relationship Specialty Start Date End Date Agueda Rousseau MD [address] [place] [address] PCP - General Family Medicine 05/08/20 Darrin Hernandez FNP [address] [place] [address] Nurse Practitioner Family Medicine 10/19/23
--- OUTSIDE RECORDS SUMMARY | 2025-10-30 13:09 | XMS_ITS | Encounter Summary ---
Author Organization [employer] Address [address] [place] [address] 7 [place] [address] Care Team Providers Care Programming Specialist Name Role Phone Brittany Saldana MD Primary Care Provider + Darrin Hernandez Unavailable Unavailable Reason for Visit * Reason Onset Date Comments Med Refill 02/08/2024 Encounter Details Date Type Department Care Team (Late st Contact Info) Description 02/08/2024 Refill [facility] [address] [place] [address] Britatny Saldana MD [address] [place] [address] Social History Tobacco Use Types Packs/Day Years [...] Description 11/02/2025 11:15 AM EST Office Visit [facility] [address] [place] [address] Brittany Saldana MD [address] [place] [address] documented as of this encounter Visit Diagnoses Not on filedocumented in this encounter Additional Health Concerns Assessment Noted Time PHQ-9 Depression Total Score: 1 12/27/19 24 1:53 PM EST documented as of this encounter Care Teams Programming Specialist Relationship Specialty Start Date End Date Brittany Saldana MD [address] [place] [address] PCP - General Family Medicine 05/08/20 Darrin Hernandez FNP [address] [place] [address] Nurse Practitioner Family Medicine 10/19/23 documented as of this encounter
--- OUTSIDE RECORDS SUMMARY | 2025-10-30 13:09 | XMS_ITS | Encounter Summary ---
Author Organization [employer] Address [address] [place] [address] [place] [address] Care Team Providers Care Bullet Slug Casting Machine Operator Name Role Phone Brittany Saldana MD Primary Care Provider + Darrin Hernandez Unavailable Unavailable Reason for Visit * Reason Comments Med Refill Encounter Details Date Type Department Care Team (Late st Contact Info) Description 07/25/2024 Refill [facility] [address] [place] [address] Brandon Caballero MD [address] [place] [address] Type 2 diabetes mellitus without complication, without long-term current use of insulin ([facility]) Social History Tobacco Use Types Packs/Day [...] Description 11/02/2025 11:15 AM EST Office Visit [facility] [address] [place] [address] Brittany Saldana MD [address] [place] [address] documented as of this encounter Goals Goal [...] documented as of this encounter Care Teams Bullet Slug Casting Machine Operator Relationship Specialty Start Date End Date Brittany Saldana MD [address] [place] [address] PCP - General Family Medicine 05/08/20 Darrin Hernandez FNP [address] [place] [address] Nurse Practitioner Family Medicine 10/19/23 documented as of this encounter
--- OUTSIDE RECORDS SUMMARY | 2025-10-30 13:09 | XMS_ITS | Encounter Summary ---
Author Organization [employer] Address [address] [place] [address] Care Team Providers Care Consultants Intern Name Role Phone Brittany Saldana MD Primary Care Provider + Darrin Hernandez Unavailable Unavailable Reason for Visit * Reason Onset Date Comments Durable Medical Equipment 02/17/2023 Encounter Details Date Type Department Care Team (Late st Contact Info) Description 02/17/2023 Telephone [facility] MED[facility]INE [address] [place] [address] Brittany Saldana MD [address] [place] [address] Durable Medical Equipment Social History Tobacco Use [...] . Any questions please contact pt at [phone]. documented in this encounter Plan of Treatment Upcoming Encounters Date Type Department Care Team (Late st Contact Info) Description 11/02/2025 11:15 AM EST Office Visit [facility] MEDICINE [address] [place] [address] Brittany Saldana MD [address] [place] [address] documented as of this encounter Visit Diagnoses Not on filedocumented in this encounter Additional Health Concerns Assessment Noted Time PHQ-9 Depression Total Score: 10 023 10:47 AM EDT documented as of this encounter Care Teams Consultants Intern Relationship Specialty Start Date End Date Brittany Saldana MD [address] [place] [address] PCP - General Family Medicine 05/08/20 Darrin Hernandez FNP [address] [place] [address] Nurse Practitioner Family Medicine 10/19/23 documented as of this encounter
--- OUTSIDE RECORDS SUMMARY | 2025-10-30 13:09 | XMS_ITS | Encounter Summary ---
Author Organization [employer] Address [address] [place] [address] Care Team Providers Care Commercial Parts Professional Name Role Phone Brittany Saldana MD Primary Care Provider + Darrin Hernandez Unavailable Unavailable Reason for Visit * Reason Onset Date Comments Med Refill 01/09/2025 Encounter Details Date Type Department Care Team (Late st Contact Info) Description 01/09/2025 Refill [facility] [address] [place] [address] Brittany Saladna MD [address] [place] [address] Social History Tobacco Use Types Packs/Day Years [...] Description 11/02/2025 11:15 AM EST Office Visit [facility] [address] [place] [address] Brittany Saldana MD [address] [place] [address] documented as of this encounter Goals Goal Patient Goal Type Associated Problems Recent Progress Patient-Stated? Author Blood Pressure < 140/90 Blood Pressure 138/60(2024 11:10 AM EDT) No Venkatesh Skinner, PharmD Hemoglobin A1c < 7 Result Component 5(04/06/2025 9:03 AM EDT) No Venkatesh Skinner, PharmD documented as of this encounter Visit Diagnoses Not on filedocumented in this encounter Additional Health Concerns Assessment Noted Time PHQ-9 Depression Total Score: 2 12/07/19 25 10:39 AM EST documented as of this encounter Care Teams Commercial Parts Professional Relationship Specialty Start Date End Date Brittany Saldana MD [address] [place] [address] PCP - General Family Medicine 05/08/20 Darrin Hernandez FNP [address] [place] [address] Nurse Practitioner Family Medicine 10/19/23 documented as of this encounter
--- OUTSIDE RECORDS SUMMARY | 2025-10-30 13:09 | XMS_ITS | Encounter Summary ---
Author Organization [employer] Address [address] [place] [address] Care Team Providers Care Bit Gatherer Name Role Phone Brittany Saldana MD Primary Care Provider + Darrin Hernandez Unavailable Unavailable Reason for Visit * Reason Onset Date Comments Durable Medical Equipment 01/05/2023 Encounter Details Date Type Department Care Team (Late st Contact Info) Description 01/05/2023 Telephone [facility] MED[facility]INE [address] [place] [address] Brittany Saldana MD [address] [place] [address] Durable Medical Equipment Social History Tobacco Use [...] If any questions please contact pt at [phone] documented in this encounter Plan of Treatment Upcoming Encounters Date Type Department Care Team (Late st Contact Info) Description 11/02/2025 11:15 AM EST Office Visit [facility]INE [address] [place] [address] Brittany Saldana MD [address] [place] [address] documented as of this encounter Visit Diagnoses Not on filedocumented in this encounter Additional Health Concerns Assessment Noted Time PHQ-9 Depression Total Score: 4 12/31/19 23 10:56 AM EST documented as of this encounter Care Teams Bit Gatherer Relationship Specialty Start Date End Date Brittany Saldana MD [address] [place] [address] PCP - General Family Medicine 05/08/20 Darrin Hernandez FNP [address] [place] [address] Nurse Practitioner Family Medicine 10/19/23 documented as of this encounter
--- OUTSIDE RECORDS SUMMARY | 2025-10-30 13:09 | XMS_ITS | Encounter Summary ---
Author Organization [employer] Address [address] [place] [address] [place] [address] Care Team Providers Care Aba Tutor Name Role Phone Brittany Saldana MD Primary Care Provider + Darrin Hernandez Unavailable Unavailable Reason for Visit * Reason Onset Date Comments Med Refill 08/03/2024 Encounter Details Date Type Department Care Team (Late st Contact Info) Description 08/03/2024 Refill [facility] [address] [place] [address] [facility] [address] [place] [address] Mild intermittent asthma without complication Social History [...] the past 12 months, has t he [employer], gas, oil or water company threatened to [...] 11:15 AM EST Office Visit [facility] [address] [place] [address] Brittany Saldana MD [address] [place] [address] documented as of this encounter Goals Goal [...] documented as of this encounter Care Teams Aba Tutor Relationship Specialty Start Date End Date Brittany Saldana MD [address] [place] [address] PCP - General Family Medicine 05/08/20 Darrin Hernandez FNP [address] [place] [address] Nurse Practitioner Family Medicine 10/19/23 documented as of this encounter
--- OUTSIDE RECORDS SUMMARY | 2025-10-30 13:09 | XMS_ITS | Clinical Summary ---
Author Organization [facility] Address [address] [place] [address] Phone Care Team Providers Care Alley Cleaner Name Role Phone Brittany Saldana MD Primary Care Provider + [phone] Allergies Active Allergy Reactions Criticality Noted Date [...] 02/28/2025 Lumbar radiculopathy, chronic 12/07/2024 Polyneuropathy associated with underlying diseas e 12/07/2024 Recurrent major depressive disorder, in partial remission 12/07/2024 Neurofibroma of upper extremity 09/22/2024 Vertigo 07/26/2024 Fall (on) (from) other stairs and steps, initial encounter 06/29/2024 Bradycardia 03/21/2024 Arthritis of both hands 11/18/2023 Chronic fatigue 06/03/2023 Erectile dysfunction 06/03/2023 Iliopsoas bursitis of left hip 06/03/2023 Type 2 diabetes mellitus wit hout complication, without long-term current use of insulin 02/08/2023 Varicose veins of bilateral lower extremities [...] Date Diagnosed: 08/25/2019 3:24 PM (R22.1) 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 (08/07/2025): Neurofibromatosis, unspecified; Note: Date Diagnosed: 08/25/2019 3:24 PM (Q85.00) 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] Signed Date: 08/03/2025 12:05 ET Workstation ID: [id number] Transcribed By: Self Edit Transcribed Date: 08/03/2025 [...] Signed Date: 08/03/2025 12:05 ET Workstation ID: [id number] Transcribed By: Self Edit Transcribed Date: 08/03/2025 11:58 ET Sena Mobley MD IMG CT PROCEDURES Final Resu lt from Last 3 Months Insurance [employer] MEDICARE Member Subscriber Plan / Payer (Ef fective 2023-Present) Name:SarathDane macdonald Relation to Subscriber:Self Name:Dane Calles Payer ID:[id number] Group ID:[id number] Type:Not on file Address: [place] [address] [address] [place] [address] Care Teams Alley Cleaner Relationship Specialty Start Date End Date Brittany Saldana MD [address] [place] [phone] PCP - General Internal Medicine 07/05/25
--- OUTSIDE RECORDS SUMMARY | 2025-10-30 13:09 | XMS_ITS | Encounter Summary ---
Author Organization [employer] Address [address] [place] [address] Care Team Providers Care Batter Mixer Helper Name Role Phone Brittany Saldana MD Primary Care Provider + Darrin Hernandez Unavailable Unavailable Reason for Visit * Reason Onset Date Comments Med Refill 07/23/2024 Encounter Details Date Type Department Care Team (Late st Contact Info) Description 07/23/2024 Refill [facility] MEDICINE [address] [place] [address] [place] F[place] [address] [place] [address] Depression, unspecified depression type Social History Tobacco [...] the past 12 months, has t he [employer] gas, oil or water company threatened to [...] Description 11/02/2025 11:15 AM EST Office Visit [facility] MEDICINE [address] [place] [address] Brittany Saldana MD [address] [place] [address] documented as of this encounter Goals Goal [...] documented as of this encounter Care Teams Batter Mixer Helper Relationship Specialty Start Date End Date Brittany Saldana MD [address] [place] [address] PCP - General Family Medicine 05/08/20 Darrin Hernandez FNP [address] [place] [address] Nurse Practitioner Family Medicine 10/19/23 documented as of this encounter
--- OUTSIDE RECORDS SUMMARY | 2025-10-30 13:09 | XMS_ITS | Encounter Summary ---
Author Organization [employer] Address [address] [place] [address] Care Team Providers Care Custody Officer Name Role Phone Brittany Saldana MD Primary Care Provider + Darrin Hernandez Unavailable Unavailable Reason for Visit * Reason Onset Date Comments Med Refill 08/03/2024 Encounter Details Date Type Department Care Team (Late st Contact Info) Description 08/03/2024 Refill [facility] MEDICINE [address] [place] [address] Brandon Caballero MD [address] [place] [address] Type 2 diabetes mellitus without complication, without long-term current use of insulin ([facility]) Social History Tobacco Use Types [...] Description 11/02/2025 11:15 AM EST Office Visit [facility] MEDICINE [address] [place] [address] Brittany Saldana MD [address] [place] [address] documented as of this encounter Goals Goal [...] documented as of this encounter Care Teams Custody Officer Relationship Specialty Start Date End Date Brittany Saldana MD [address] [place] [address] PCP - General Family Medicine 05/08/20 Darrin Hernandez FNP [address] [place] [address] Nurse Practitioner Family Medicine 10/19/23 documented as of this encounter
--- OUTSIDE RECORDS SUMMARY | 2025-10-30 13:09 | XMS_ITS | Encounter Summary ---
Author Organization [employer] Address [address] [place] [address] Care Team Providers Care Senior Maintenance Technician Name Role Phone Brittany Saldana MD Primary Care Provider + Darrin Hernandez Unavailable Unavailable Reason for Visit * Reason Onset Date Comments Durable Medical Equipment 02/15/2023 Encounter Details Date Type Department Care Team (Late st Contact Info) Description 02/15/2023 Telephone [facility] MEDICINE [address] [place] [address] Brittany Saldana MD [address] [place] [address] Durable Medical Equipment Social History Tobacco Use [...] 11/02/2025 11:15 AM EST Office Visit [facility] [address] [place] [address] Brittany Saldana MD [address] [place] [address] documented as of this encounter Visit Diagnoses Not on filedocumented in this encounter Additional Health Concerns Assessment Noted Time PHQ-9 Depression Total Score: 10 023 10:47 AM EDT documented as of this encounter Care Teams Senior Maintenance Technician Relationship Specialty Start Date End Date Brittany Saldana MD [address] [place] [address] PCP - General Family Medicine 05/08/20 Darrin Hernandez FNP [address] [place] [address] Nurse Practitioner Family Medicine 10/19/23 documented as of this encounter
--- OUTSIDE RECORDS SUMMARY | 2025-10-30 13:09 | XMS_ITS | Encounter Summary ---
Author Organization [employer] Address [address] [place] [address] Care Team Providers Care Deputy County Clerk Name Role Phone Brittany Saldana MD Primary Care Provider + Darrin Hernandez Unavailable Unavailable Reason for Visit * Reason Onset Date Comments Med Refill 08/11/2024 Encounter Details Date Type Department Care Team (Late st Contact Info) Description 08/11/2024 Refill [facility] [address] [place] [address] Brittany Saldana MD [address] [place] [address] Mild intermittent asthma without complication Social History [...] the past 12 months, has t he [employer], gas, oil or water company threatened to [...] 11:15 AM EST Office Visit [facility] MEDICINE [address] [place] [address] Brittany Saldana MD [address] [place] [address] documented as of this encounter Goals Goal [...] documented as of this encounter Care Teams Deputy County Clerk Relationship Specialty Start Date End Date Brittany Saldana MD [address] [place] [address] PCP - General Family Medicine 05/08/20 Darrin Hernandez FNP [address] [place] [address] Nurse Practitioner Family Medicine 10/19/23 documented as of this encounter
--- OUTSIDE RECORDS SUMMARY | 2025-10-30 13:09 | XMS_ITS | Encounter Summary ---
Author Organization [employer] Address [address] [place] [address] Care Team Providers Care Operational Intelligence Analyst Name Role Phone Brittany Saldana MD Primary Care Provider + Darrin Hernandez Unavailable Unavailable Reason for Visit * Reason Comments Med Refill Encounter Details Date Type Department Care Team (Late st Contact Info) Description 03/15/2023 Refill [facility] MEDICINE [address] [place] [address] Brittany Saldana MD [address] [place] [address] Primary hypertension Social History Tobacco Use Types [...] Description 11/02/2025 11:15 AM EST Office Visit [facility] MEDICINE [address] [place] [address] Brittany Saldana MD [address] [place] [address] documented as of this encounter Visit Diagnoses Diagnosis Primary hypertension Unspecified essential hypertension documented in this encounter Additional Health Concerns Assessment Noted Time PHQ-9 Depression Total Score: 10 023 10:47 AM EDT documented as of this encounter Care Teams Operational Intelligence Analyst Relationship Specialty Start Date End Date Brittany Saldana MD [address] [place] [address] PCP - General Family Medicine 05/08/20 Darrin Hernandez FNP [address] [place] [address] Nurse Practitioner Family Medicine 10/19/23 documented as of this encounter
--- OUTSIDE RECORDS SUMMARY | 2025-10-30 13:09 | XMS_ITS | Encounter Summary ---
Author Organization [employer] Address [address] [facility] 7 [place] [address] Care Team Providers Care Western Philosophy Professor Name Role Phone Brittany Saldana MD Primary Care Provider + Darrin Hernandez Unavailable Unavailable Encounter Details Date Type Department Care Team (Late st Contact Info) Description 10/10/2024 Abstract [facility] [address] [place] [address] Brittany Saldana MD [address] [place] [address] Social History Tobacco Use Types Packs/Day Years [...] [facility] [address] [place] [address] Brittany Saldana MD [address] [place] [address] documented as of this encounter Goals Goal [...] documented as of this encounter Care Teams Western Philosophy Professor Relationship Specialty Start Date End Date Brittany Saldana MD [address] [place] [address] PCP - General Family Medicine 05/08/20 Darrin Hernandez FNP [address] [place] [address] Nurse Practitioner Family Medicine 10/19/23 documented as of this encounter
== END 2025-10-30 10:29 | disposition home or self-care (01) ==
LOC: HO.HHCL 10:28
PROVIDERS: PCP Internal Medicine; Visit Provider Registered Nurse Psychiatric/Mental Health
DX: Z51.81 Encounter for therapeutic drug level monitoring (principal); Z79.899 Other long term (current) drug therapy
CPT/HCPCS: 36415; 80053; 80061; 82248; 84443; 85025

== ENCOUNTER 2025-11-01 10:43 | Outpatient (AMB) | payer OTHER, SELFPAY ==
--- OUTSIDE RECORDS SUMMARY | 2025-10-30 13:00 | XMS_ITS | Encounter Summary ---
Author Organization [employer] Address [address] [place] [address] Care Team Providers Care Finger Cobbler Name Role Phone Brittany Saldana MD Primary Care Provider + Darrin Hernandez Unavailable Unavailable Reason for Visit * Reason Comments AUD F/U Encounter Details Date Type Department Care Team (Late st Contact Info) Description 10/30/2025 1:00 PM EST Office Visit [facility] [address] [place] [address] Brandon Caballero MD [address] [place] [address] Alcohol use disorder, severe, in sustained remission (CMS/HCC) (HCC) (Primary Dx) Social History Tobacco Use Types [...] the past 12 months, has t he [employer], gas, oil or water [employer] threatened to shut off services in your [...] Progress Notes * Brandon Caballero MD - 10/30/2025 1:00 PM EST Patient ID: Narendra Calles is a 70 y.o. male who presents for AUD F/U . 08/07/25 Alcohol use disorder, severe, in sustained remission (CMS/HCC) Continues to do well. Continues to regularly go to [facility], Support Groups, and [facility]. All these help and support him in hisrecovery. The people here have become his family. Still procrastinating in many ways, such as joining a gym. Overall, doing very well with his diet with an occasional treat. Recent chest CT was improved and his magnetic tape typewriter operator told him he did not need a f/u unless things change. -------- Continues to do very well. Recovery sustained. Active in is recovery as noted above. F/U 12 weeks. Today 10/30/25 Narendra says he has been having increased depression for the last month and a half. He did have his first psychiatric appointment at [facility] this morning. He liked the psychiatrist and feels like they had a good connection. Reports that his Abilify was increased. He has a follow-up in the next few weeks. He has been seeing a therapist at [facility] who he likes and finds this very helpful. He sees her every 2 weeks. He does not feel that he has seasonal affective disorder. One downside of his depression is that he has not following his diet and gaining some of his weightback. Going to [facility] Wednesday through Wednesday. Despite the fact that many people speak in [place], he enjoys being there. He continues to attend recovery support groups here. January 13, 2026 will be his 4-year anniversary of sobriety. He wonders if he needs to see me individually anymore. Objective Physical Exam Constitutional: Appearance: Normal appearance. Neurological: Mental Status: He is alert and oriented to person, place, and time. Psychiatric: Mood and Affect: Mood normal. Behavior: Behavior normal. Thought Content: Thought content normal. Comments: Seems down when discussing his increased depression and its affect on his diet. Assessment/Plan Alcohol use disorder, severe, in sustained remission (CMS/HCC) ([facility]) Narendra says he has been having increased depression for the last month and a half. He did have his first psychiatric appointment at [facility] this morning. He liked the psychiatrist and feels like they had a good connection. Reports that his Abilify was increased. He has a follow-up in the next few weeks. He has been seeing a therapist at [facility] who he likes and finds this very helpful. He sees her every 2 weeks. He does not feel that he has seasonal affective disorder. One downside of his depression is that he has not following his diet and gaining some of his weightback. Going to [facility] Wednesday through Wednesday. Despite the fact that many people speak in [place], he enjoys being there. He continues to attend recovery support groups here. January 13, 2026 will be his 4-year anniversary of sobriety. He wonders if he needs to see me individually anymore. Reviewed his depression. Now engaged with /psychiatry. Sustained remission intact. We agreed that that this time he does not need to see me individually. He will continue coming to support groups and [facility] when he is able. We will talk @ groups that we both attend. He will see me again, individually, as needed. Diagnoses and all orders for this visit: Alcohol use disorder, severe, in sustained remission ([facility]) ([facility]) This information has been disclosed to you [...] Care Team (Late st Contact Info) Description 11/02/2025 11:15 AM EST Office Visit [facility] [address] [place] [address] Brittany Saldana MD [address] [place] [address] documented as of this encounter Goals Goal [...] use disorder, severe, in sustained remission (CMS/HCC) ([facility])- Primary documented in this encounter Additional Health Concerns Assessment Noted Time PHQ-9 Depression Total Score: 8 08/22/20 25 11:20 AM EDT documented as of this encounter Care Teams Finger Cobbler Relationship Specialty Start Date End Date Brittany Saldana MD [address] [place] [address] PCP - General Family Medicine 05/08/20 Darrin Hernandez FNP [address] [place] [address] Nurse Practitioner Family Medicine 10/19/23 documented as of this encounter
--- NOTE | 2025-11-01 10:49 | A.OFFVIS_ITS ---
Intake Visit Reasons: 1y/PSA Intake Note: Reason for Visit: PSA/PVR Follow Up Urology Meds: Finasteride, Tadalafil Blood Thinners: None Labs: PSA 2.09(10/12/2025) Imaging: None Last PVR: 0ML PVR:108 Truck Striker Required: No Accompanied by: Self / Same As Patient Allergies Penicillins Allergy (Verified 11/01/25 10:50) Shortness of Breath HPI Comments Details: Dane is a pleasant male. He is a patient of . He is seen for the following urologic conditions - incomplete bladder emptying - lower urinary tract symptoms - erectile dysfunction Yearly follow-up Current therapy finasteride PSA 05/08 2.3, 10/09 2.1 Tadalafil for bladder stabilization Minimal impact from high-dose daily and on demand medication Discussed penile pump versus injections Chose not to be treated 06/06 T 645, 10/09 2.1 Erectile dysfunction Current therapy daily 10 mg with up to 20 mg on demand Prior therapy low-dose tadalafil Other medications include citalopram, bupropion, gabapentin Lower urinary tract symptoms Current therapy combination finasteride with terazosin Prior therapy with tamsulosin Incomplete emptying PVR 65 Weak stream Occasional nocturia Background of heavy alcohol use Cystoscopy 08/06 long prostate with bilateral lobes Therapeutic plan - combination therapy in addition of finasteride PFSH Medical History Low serum triiodothyronine (T3) Diabetes Atrial fibrillation Osteoarthritis DJD (degenerative joint disease) Von Recklinghausen disease GERD (gastroesophageal reflux disease) Anxiety Hyperlipidemia Insomnia Sleep apnea with use of continuous positive airway pressure (CPAP) Obesity Depression ADD (attention deficit disorder) Colon polyp Microscopic hematuria HTN (hypertension) AA (alcohol abuse) BPH (benign prostatic hyperplasia) Surgical History History of esophagogastroduodenoscopy (EGD) S/P laparoscopic sleeve gastrectomy Hx of tonsillectomy H/O bilateral inguinal hernia repair H/O umbilical hernia repair H/O colonoscopy Family History Mother Throat cancer Paternal Aunt Colon cancer Maternal Grandfather No problems noted. Sister Heart attack Stented coronary artery Hx of cardiac cath Hypertrophic obstructive cardiomyopathy (HOCM) Social History Household Members: Family Housing: House Are you a primary patient care coordinator to a significant other at home: No Do you presently have visiting nurse or other home services: No Alcohol intake: former Patient Tobacco Use Status: Former Tobacco user service: No Review of Systems Const Denies chills and Denies fever(s) Card Reports no additional complaints and Denies syncope Resp Denies cough GI Denies abdominal pain and Denies heartburn Reports as per HPI and Denies change in libido Neuro Denies syncope Psych Denies change in libido Endo Denies change in libido Physical Exam Const General: cooperative, healthy appearing, comfortable and no acute distress Orientation/consciousness: patient oriented x3 HEENT Face and sinus: Yes normal facial exam Mouth: moist mucous membranes Neck Neck: Yes normal visual inspection, Yes full ROM and Yes trachea midline Chest Chest palpation & inspection: normal inspection of the chest Resp Effort & Inspection: normal respiratory effort, able to speak in complete sentences and no respiratory distress GI Inspection: Yes normal to inspection Back/Spine/Pelvis Cervical Spine: normal cervical lordosis Thoracic/Lumbar Spine: thoracic and lumbar spine normal to inspection Skin General skin exam: no rashes or lesions noted Neuro General: patient oriented x3, gait normal, tone normal and moves all extremities Extrem General: Yes normal to inspection and Yes capillary refill normal Office Procedures Post Void Residual Post Residual Void Post Void Residual (PVR): 108 [id number] Void Residual by ultrasound Assessment & Plan Assessment & Plan (1) BPH w urinary obs/LUTS: Code(s): N40.1 - Benign prostatic hyperplasia with lower urinary tract symptoms; N13.8 - Other obstructive and reflux uropathy Category: Medical (2) Incomplete emptying of bladder due to benign prostatic hyperplasia: Code(s): N40.1 - Benign prostatic hyperplasia with lower urinary tract symptoms; R33.9 - Retention of urine, unspecified Category: Medical (3) Weak urinary stream: Code(s): R39.12 - Poor urinary stream Category: Medical Plan Twelve month follow-up PSA Orders: Orders AMB Post Void Residual by ultrasound 11/01/25 N13.8 - Other obstructive and reflux uropathy, N40.1 - Benign prostatic hyperplasia with lower urinary tract symptoms Prostate Specific Antigen 12 Months R39.12 - Poor urinary stream Medications: Refilled finasteride 5 mg PO BEDTIME 90 tabs 3RF 90 days N40.1 - Benign prostatic hyperplasia with lower urinary tract symptoms, R33.9 - Retention of urine, unspecified Patient Instructions: This note is constructed using voice recognition software. While every effort has been made to ensure accuracy diesel mechanic apprentice errors may have been included. Imaging studies, laboratory and physical exam results were discussed and reviewed in detail. No major barriers to patient understanding were identified. An opportunity to ask questions regarding the treatment plan was provided. All questions were answered. The patient expressed understanding and agreement with the above treatment plan. The patient is aware they should contact our office by phone for worsening of their current condition or the appearance of new urologic symptoms. Compliance is encouraged with any medications and followup testing that is ordered. It is a privilege to participate in the urologic care of your patient. If you have any questions or concerns regarding treatment for the above conditions, or other urologic issues, please do not hesitate to contact me. The office telephone contact is [phone]. Sincerely, Dr Ramiro Victoria MD, [facility] - Urology Compassionate Specialist Care for the Genitourinary System Coding Level of Care Code Est Pt Level 4 (85447) Add On Problem Visit Only Diagnoses BPH w urinary obs/LUTS N40.1; N13.8 Incomplete emptying of bladder due to benign prostatic hyperplasia N40.1; R33.9 Weak urinary stream R39.12 CPT Codes Post Residual Void - PVR CPT Code: 23362-[id number] Void Residual by ultrasound ([id number])
--- OUTSIDE RECORDS SUMMARY | 2025-11-01 13:39 | XMS_ITS | Encounter Summary ---
Author Organization [employer] Address [address] [place] [address] 7 [place] [address] Care Team Providers Care Eyewear Manufacturing Tech Name Role Phone Brittany Saldana MD Primary Care Provider + Darrin Hernandez Unavailable Unavailable Reason for Visit * Reason Comments Recovery Supports Encounter Details Date Type Department Care Team (Late st Contact Info) Description 10/30/2025 Patient Outreach [facility] MEDICINE [address] [place] [address] Ted Olvera Recovery Supports Social History Tobacco [...] encounter Progress Notes * Ted Olvera - 10/30/2025 2:37 PM EST I met with Dane ruff. Setting: in person at [facility] Recovery Wellness Goals worked on: Physical Health/Mental Health Social Stability Spiritual Wellness Action taken/next steps: Attended recovery support group Contingency management Additional comments: Ted Olvera documented in this encounter Plan of Treatment Upcoming Encounters Date Type Department Care Team (Late st Contact Info) Description 11/02/2025 11:15 AM EST Office Visit [facility] MEDICINE [address] [place] [address] Brittany Saldana MD [address] [place] [address] documented as of this encounter Goals Goal [...] documented as of this encounter Care Teams Eyewear Manufacturing Tech Relationship Specialty Start Date End Date Brittany Saldana MD [address] [place] [address] PCP - General Family Medicine 05/08/20 Darrin Hernandez FNP [address] [place] [address] Nurse Practitioner Family Medicine 10/19/23 documented as of this encounter
--- OUTSIDE RECORDS SUMMARY | 2025-11-01 13:39 | XMS_ITS | Encounter Summary ---
Author Organization [employer] Address [address] [place] [address] Care Team Providers Care Screen Printing Machine Operator Helper Name Role Phone Brittany Saldana MD Primary Care Provider + Darrin Hernandez Unavailable Unavailable Reason for Visit * Reason Onset Date Comments Referral 09/02/2023 Encounter Details Date Type Department Care Team (Late st Contact Info) Description 09/02/2023 Telephone [facility] MEDICINE [address] [place] [address] Brittany Saldana MD [address] [place] [address] Referral Social History Tobacco Use Types Packs/Day [...] from pt requesting a new referral for Lock Corner Machine Operator Specialist, pt stated needs a hearing test. 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
--- OUTSIDE RECORDS SUMMARY | 2025-11-01 13:40 | XMS_ITS | Patient Health Record ---
Author Organization [employer] Address [address] [facility] [address] [place] [address] Support Name Relationship Address Phone Dane Calles Guarantor Unknown [phone] Allergies Allergen (clinical drug ingredient) Drug/Non Drug [...] Disorder due to type 2 diabetes mellitus (684388361) Type 2 diabetes mellitus with unspecified complications (E11.8) Active confirmed Problem Morbid obesity (disorder) (637444469) Morbid (severe) obesity due to excess calories (E66.01) Active confirmed Problem Mixed hyperlipidemia (331423731) Mixed hyperlipidemia (E78.2) Active confirmed Problem Alcohol dependence (12507914) Alcohol dependence, uncomplicated (F10.20) Active confirmed Problem Mild recurrent major depression (97778212) Major depressive disorder, recurrent, mild (F33.0) Active confirmed Problem 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, intractable, 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) Active confirmed Problem 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, intractable, without status epilepticus (G40.219) Active confirmed Problem Obstructive sleep apnea syndrome (disorder) (17880069) Obstructive sleep apnea (adult) (pediatric) (G47.33) Active confirmed Problem Essential hypertension (96264340) Essential (primary) hypertension (I10) Active confirmed Problem Gastro-esophageal reflux disease without esophagitis (579901772) Gastro-esophageal reflux disease without esophagitis (K21.9) Active confirmed Problem Neurofibromatosis (30643003) Neurofibromatosis , 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) Active confirmed Problem Somnolence (81248859) Somnolence (R40.0) Active confirmed Problem Attention deficit hyperactivity disorder, predominantly inattentive type (disorder) (47481661) Attention and concentration deficit (R41.840) Active confirmed Problem Body mass index 40+ - severely obese (506073565) Body mass index (BMI) 40.0-44.9, adult (Z68.41) Active confirmed Problem Lower urinary tract symptoms due to benign prostatic hypertrophy (75498760790184) Benign prostatic hyperplasia with lower urinary tract symptoms (N40.1) Active confirmed Problem Morbid obesity (313035159) Morbid obesity (E66.01) Active confirmed Plan Of Treatment No Information Medical (General) History Medical History History ICD Code hypertension, benign acid reflux BPH see Urology Attention deficit disorder Neurofibromatosis complex partial seizure disorder Surgical History Surgery Date(Month/Year) Umblical hernia repair 2004 Tonsellectomy Cyst in throat removed
--- OUTSIDE RECORDS SUMMARY | 2025-11-01 13:40 | XMS_ITS | Encounter Summary ---
Author Organization [employer] Address [address] [place] [address] Care Team Providers Care Textile Conservator Name Role Phone Brittany Saldana MD Primary Care Provider + Darrin Hernandez Unavailable Unavailable Reason for Visit * Reason Onset Date Comments Med Refill 07/23/2024 Encounter Details Date Type Department Care Team (Late st Contact Info) Description 07/23/2024 Refill [facility]INE [address] [place] [address] GaltAlexus FNP [address] [place] [address] Depression, unspecified depression type Social History Tobacco [...] the past 12 months, has t he [employer], gas, oil or water company threatened [...] Description 11/02/2025 11:15 AM EST Office Visit [facility] [address] [place] [address] Brittany Saldana MD [address] [place] [address] documented as of this encounter Goals Goal Patient Goal Type Associated Problems Recent Progress Patient-Stated? Author Blood Pressure < 140/90 Blood Pressure 138/60(2024 11:10 AM EDT) No Venkatesh Skinner, PharmD Hemoglobin A1c < 7 Result Component 5(04/06/2025 9:03 AM EDT) No Venaktesh Skinner PharmD documented as of this encounter Visit Diagnoses Diagnosis Depression, unspecified depression type documented in this encounter Additional Health Concerns Assessment Noted Time PHQ-9 Depression Total Score: 4 03/06/20 24 2:22 PM EDT documented as of this encounter Care Teams Textile Conservator Relationship Specialty Start Date End Date Brittany Saldana MD [address] [place] [address] PCP - General Family Medicine 05/08/20 Darrin Hernandez FNP [address] [place] [address] Nurse Practitioner Family Medicine 10/19/23 documented as of this encounter
--- OUTSIDE RECORDS SUMMARY | 2025-11-01 13:40 | XMS_ITS | Encounter Summary ---
Author Organization [employer] Address [address] [place] [address] Care Team Providers Care Clinical Research Physician Name Role Phone Brittany Saldana MD Primary Care Provider + Darrin Hernandez Unavailable Unavailable Reason for Visit * Reason Onset Date Comments Durable Medical Equipment 01/05/2023 Encounter Details Date Type Department Care Team (Late st Contact Info) Description 01/05/[address] [facility] MEDICINE [address] [place] [address] Brittany Saldana MD [address] [place] [address] Durable Medical Equipment Social History Tobacco Use [...] If any questions please contact pt at [phone] documented in this encounter Plan of Treatment Upcoming Encounters Date Type Department Care Team (Late st Contact Info) Description 11/02/2025 11:15 AM EST Office [address] [facility] MED[facility] [address] [place] [address] Brittany Saldana MD [address] [place] [address] documented as of this encounter Visit Diagnoses Not on filedocumented in this encounter Additional Health Concerns Assessment Noted Time PHQ-9 Depression Total Score: 4 12/31/19 23 10:56 AM EST documented as of this encounter Care Teams Clinical Research Physician Relationship Specialty Start Date End Date Brittany Saldana MD [address] [place] [address] PCP - General Family Medicine 05/08/20 Darrin Hernandez FNP [address] [place] [address] Nurse Practitioner Family Medicine 10/19/23 documented as of this encounter
--- OUTSIDE RECORDS SUMMARY | 2025-11-01 13:40 | XMS_ITS | Encounter Summary ---
Author Organization [employer] Address [address] [place] [address] Care Team Providers Care Hydraulic Spinner Name Role Phone Brittany Saldana MD Primary Care Provider + Darrin Hernandez Unavailable Unavailable Encounter Details Date Type Department Care Team (Latest Contact Info) Description 08/07/2022 Abstract [facility] CONVERSIONS Dental, Provider, DDS [...] Description 11/02/2025 11:15 AM EST Office Visit [facility] MEDICINE [address] [place] [address] Brittany Saldana MD [address] [place] [address] documented as of this encounter Visit Diagnoses Not on filedocumented in this encounter Care Teams Hydraulic Spinner Relationship Specialty Start Date End Date Brittany Saldana MD [address] [place] [address] PCP - General Family Medicine 05/08/20 Darrin Hernandez FNP [address] [place] [address] Nurse Practitioner Family Medicine 10/19/23 documented as of this encounter
--- OUTSIDE RECORDS SUMMARY | 2025-11-01 13:40 | XMS_ITS | Encounter Summary ---
Author Organization [employer] Address [address] [place] [address] [place] [address] Care Team Providers Care Packing Machine Operator Name Role Phone Brittany Saldana MD Primary Care Provider + Darrin Hernandez Unavailable Unavailable Reason for Visit * Reason Comments Med Refill Encounter Details Date Type Department Care Team (Late st Contact Info) Description 10/19/2025 Refill [facility] MEDICINE [address] [place] [address] Brittany Saldana MD [address] [place] [address] Social History Tobacco Use Types Packs/Day Years [...] Description 11/02/2025 11:15 AM EST Office Visit [facility] MEDICINE [address] [place] [address] Brittany Saldana MD [address] [place] [address] documented as of this encounter Goals Goal [...] as of this encounter Care Teams Packing Machine Operator Relationship Specialty Start Date End Date Brittany Saldana MD [address] [place] [address] PCP - General Family Medicine 05/08/20 Darrin Hernandez FNP [address] [place] [address] Nurse Practitioner Family Medicine 10/19/23 documented as of this encounter
--- OUTSIDE RECORDS SUMMARY | 2025-11-01 13:40 | XMS_ITS | Encounter Summary ---
Author Organization [employer] Address [address] [place] [address] Care Team Providers Care Channeler Runner Name Role Phone Brittany Saldana MD Primary Care Provider + Darrin Hernandez Unavailable Unavailable Reason for Visit * Reason Onset Date Comments r/s appt 12/24/2022 Encounter Details Date Type Department Care Team (Late st Contact Info) Description 12/24/2022 Telephone [facility] MEDICINE [address] [place] [address] Brittany Saldana MD [address] [place] [address] r/s appt Social History Tobacco Use Types [...] states his ride was not there ontime. Chemical Tank Worker tried booking but December Calender was full. Please contact pt at [phone] documented in this encounter Plan of Treatment Upcoming Encounters Date Type Department Care Team (Late st Contact Info) Description 11/02/2025 11:15 AM EST Office Visit [facility] MEDICINE [address] [place] [address] Brittany Saldana MD [address] [place] [address] documented as of this encounter Visit Diagnoses Not on filedocumented in this encounter Additional Health Concerns Assessment Noted Time PHQ-9 Depression Total Score: 9 11/05/20 22 9:37 AM EST documented as of this encounter Care Teams Channeler Runner Relationship Specialty Start Date End Date Brittany Saldana MD [address] [place] [address] PCP - General Family Medicine 05/08/20 Darrin Hernandez FNP [address] [place] [address] Nurse Practitioner Family Medicine 10/19/23 documented as of this encounter
--- OUTSIDE RECORDS SUMMARY | 2025-11-01 13:40 | XMS_ITS | Encounter Summary ---
Author Organization [employer] Address [address] [place] [address] 7 [place] [address] Care Team Providers Care Bagging Salvager Name Role Phone Brittany Saldana MD Primary Care Provider + Darrin Hernandez Unavailable Unavailable Reason for Visit * Reason Onset Date Comments Appointment 09/10/2023 Encounter Details Date Type Department Care Team (Late st Contact Info) Description 09/10/2023 Telephone [facility]AL [address] [place] [address] Misbah Kerraris [address] [place] [address] Appointment Social History Tobacco Use Types Packs/Day [...] cleaning appt. Last appt he had in [place] was deep leaning in September and the [...] 11:15 AM EST Office Visit [facility] MED[facility]INE [address] [place] [address] Brittany Saldana MD [address] [place] [address] documented as of this encounter Visit Diagnoses Not on filedocumented in this encounter Additional Health Concerns Assessment Noted Time PHQ-9 Depression Total Score: 4 09/06/20 11:30 AM EDT documented as of this encounter Care Teams Bagging Salvager Relationship Specialty Start Date End Date Brittany Saldana MD [address] [place] [address] PCP - General Family Medicine 05/08/20 Darrin Hernandez FNP [address] [place] [address] Nurse Practitioner Family Medicine 10/19/23 documented as of this encounter
--- OUTSIDE RECORDS SUMMARY | 2025-11-01 13:40 | XMS_ITS | Encounter Summary ---
Author Organization [employer] Address [address] [place] [address] [place] [address] Care Team Providers Care Client Integration Manager Name Role Phone Brittany Saldana MD Primary Care Provider + Darrin Hernandez Unavailable Unavailable Reason for Visit * Reason Comments Med Refill Encounter Details Date Type Department Care Team (Late st Contact Info) Description 10/23/2025 Refill [facility] [address] [place] [address] Brittany Saldana MD [address] [place] [address] Attention deficit hyperactivity disorder, predominantly inattentive type [...] the past 12 months, has t he [employer], gas, oil or water company threatened to [...] EST Office Visit [facility] MED[facility]INE [address] [place] [address] Brittany Saldana MD [address] [place] [address] documented as of this encounter Goals Goal [...] as of this encounter Care Teams Client Integration Manager Relationship Specialty Start Date End Date Brittany Saldana MD [address] [place] [address] PCP - General Family Medicine 05/08/20 Darrin Hernandez FNP [address] [place] [address] Nurse Practitioner Family Medicine 10/19/23 documented as of this encounter
--- OUTSIDE RECORDS SUMMARY | 2025-11-01 13:40 | XMS_ITS | Encounter Summary ---
Author Organization [employer] Address [address] [facility] 7 [place] [address] Care Team Providers Care Sample Taker Operator Name Role Phone Brittany Saldana MD Primary Care Provider + Darrin Hernandez Unavailable Unavailable Encounter Details Date Type Department Care Team (Late st Contact Info) Description 10/10/[address] [facility] MEDICINE [address] [place] [address] Brittany Saldana MD [address] [place] [address] Social History Tobacco Use Types Packs/Day Years [...] Visit [facility] MEDICINE [address] [place] [address] Brittany Saldana MD [address] [place] [address] documented as of this encounter Goals Goal [...] documented as of this encounter Care Teams Sample Taker Operator Relationship Specialty Start Date End Date Brittany Saldana MD [address] [place] [address] PCP - General Family Medicine 05/08/20 Darrin Hernandez FNP [address] [place] [address] Nurse Practitioner Family Medicine 10/19/23 documented as of this encounter
--- OUTSIDE RECORDS SUMMARY | 2025-11-01 13:40 | XMS_ITS | Encounter Summary ---
Author Organization [employer] Address [address] [place] [address] [place] [address] Care Team Providers Care Ornamental Metal Erector Name Role Phone Brittany Saldana MD Primary Care Provider + Darrin Hernandez Unavailable Unavailable Reason for Visit * Reason Comments Med Refill Encounter Details Date Type Department Care Team (Late st Contact Info) Description 04/21/2024 Refill [facility] MEDICINE [address] [place] [address] Brittany Saldana MD [address] [place] [address] Mild intermittent asthma without complication Social History [...] Visit [facility] MEDICINE [address] [place] [address] Brittany Saldana MD [address] [place] [address] documented as of this encounter Goals Goal [...] documented as of this encounter Care Teams Ornamental Metal Erector Relationship Specialty Start Date End Date Brittany Saldana MD [address] [place] [address] PCP - General Family Medicine 05/08/20 Darrin Hernandez FNP [address] [place] [address] Nurse Practitioner Family Medicine 10/19/23 documented as of this encounter
--- OUTSIDE RECORDS SUMMARY | 2025-11-01 13:40 | XMS_ITS | Encounter Summary ---
Author Organization [employer] Address [address] [place] [address] Care Team Providers Care Nutrition Helper Name Role Phone Brittany Saldana MD Primary Care Provider + Darrin Hernandez Unavailable Unavailable Reason for Visit * Reason Onset Date Comments Med Refill 08/11/2024 Encounter Details Date Type Department Care Team (Late st Contact Info) Description 08/11/2024 Refill [facility] MEDICINE [address] [place] [address] Brittany Saldana MD [address] [place] [address] Mild intermittent asthma without complication Social History [...] the past 12 months, has t he [employer], gas, oil or water company threatened to [...] 11:15 AM EST Office Visit [facility] MEDICINE [address] [place] [address] Brittany Saldana MD [address] [place] [address] documented as of this encounter Goals Goal [...] documented as of this encounter Care Teams Nutrition Helper Relationship Specialty Start Date End Date Brittany Saldana MD [address] [place] [address] PCP - General Family Medicine 05/08/20 Darrin Hernandez FNP [address] [place] [address] Nurse Practitioner Family Medicine 10/19/23 documented as of this encounter
--- OUTSIDE RECORDS SUMMARY | 2025-11-01 13:40 | XMS_ITS | Clinical Summary ---
Author Organization [facility] Prior to 04/14/25 Address [address] [place] [address] Care Team Providers Care Appellate Law Clerk Name Role Phone Selvin Payan MD Primary Care Provider [phone] Allergies Active Allergy Reactions Criticality Noted Date [...] age to complete this topic Care Teams Appellate Law Clerk Relationship Specialty Start Date End Date Selvin Payan MD [address] [place] [address] PCP - General Internal Medicine 03/08/18
--- OUTSIDE RECORDS SUMMARY | 2025-11-01 13:40 | XMS_ITS | Encounter Summary ---
Author Organization [employer] Address [address] [place] [address] [place] [address] Care Team Providers Care Glazier Apprentice Name Role Phone Brittany Saldana MD Primary Care Provider + Darrin Hernandez Unavailable Unavailable Reason for Visit * Reason Onset Date Comments Med Refill 08/03/2024 Encounter Details Date Type Department Care Team (Late st Contact Info) Description 08/03/2024 Refill [facility] MEDICINE [address] [place] [address] [facility] [facility] [address] [place] [address] Mild intermittent asthma without complication Social History [...] the past 12 months, has t he [employer], gas, oil or water company threatened to [...] 11/02/2025 11:15 AM EST Office Visit [facility] MEDICINE [address] [place] [address] Brittany Saldana MD [address] [place] [address] documented as of this encounter Goals Goal [...] documented as of this encounter Care Teams Glazier Apprentice Relationship Specialty Start Date End Date Brittany Saldana MD [address] [place] [address] PCP - General Family Medicine 05/08/20 Darrin Hernandez FNP [address] [place] [address] Nurse Practitioner Family Medicine 10/19/23 documented as of this encounter
--- OUTSIDE RECORDS SUMMARY | 2025-11-01 13:40 | XMS_ITS | Encounter Summary ---
Author Organization [employer] Address [address] [place] [address] Care Team Providers Care Certified Hyperbaric Technologist Name Role Phone Brittany Saldana MD Primary Care Provider + Darrin Hernandez Unavailable Unavailable Reason for Visit * Reason Onset Date Comments Med Refill 08/03/2024 Encounter Details Date Type Department Care Team (Late st Contact Info) Description 08/03/2024 Refill [facility] MEDICINE [address] [place] [address] Brandon Caballero MD [address] [place] [address] Type 2 diabetes mellitus without complication, without long-term current use of insulin ([facility]) Social History Tobacco Use Types Packs/Day Years [...] 11/02/2025 11:15 AM EST Office Visit [facility] MEDICINE [address] [place] [address] Brittany Saldana MD [address] [place] [address] documented as of this encounter Goals Goal [...] as of this encounter Care Teams Certified Hyperbaric Technologist Relationship Specialty Start Date End Date Brittany Saldana MD [address] [place] [address] PCP - General Family Medicine 05/08/20 Darrin Hernandez FNP [address] [place] [address] Nurse Practitioner Family Medicine 10/19/23 documented as of this encounter
--- OUTSIDE RECORDS SUMMARY | 2025-11-01 13:40 | XMS_ITS | Encounter Summary ---
Author Organization [employer] Address [address] [place] [address] Care Team Providers Care Soa Integration Architect Name Role Phone Brittany Saldana MD Primary Care Provider + Darrin Hernandez Unavailable Unavailable Reason for Visit * Reason Onset Date Comments Med Refill 04/16/2024 Encounter Details Date Type Department Care Team (Late st Contact Info) Description 04/16/2024 Refill [facility] MEDICINE [address] [place] [address] Darrin Hernandez FNP PTSD (post-traumatic stress disorder) [...] Description 11/02/2025 11:15 AM EST Office Visit [facility] MEDICINE [address] [place] [address] Brittany Saldana MD [address] [place] [address] documented as of this encounter Goals Goal [...] documented as of this encounter Care Teams Soa Integration Architect Relationship Specialty Start Date End Date Brittany Saldana MD [address] [place] [address] PCP - General Family Medicine 05/08/20 Darrin Hernandez FNP [address] [place] [address] Nurse Practitioner Family Medicine 10/19/23 documented as of this encounter
--- OUTSIDE RECORDS SUMMARY | 2025-11-01 13:40 | XMS_ITS | Encounter Summary ---
Author Organization [employer] Address [address] [place] [address] 7 [place] [address] Care Team Providers Care Dock Superintendent Name Role Phone Brittany Saldana MD Primary Care Provider + Darrin Hernandez Unavailable Unavailable Reason for Visit * Reason Onset Date Comments Med Refill 02/08/2024 Encounter Details Date Type Department Care Team (Late st Contact Info) Description 02/08/2024 Refill [facility]EDS [address] [place] [address] Brittany Saldana MD [address] [place] [address] Social History Tobacco Use Types Packs/Day Years [...] [facility] MEDICINE [address] [place] [address] Brittany Saldana MD [address] [place] [address] documented as of this encounter Visit Diagnoses Not on filedocumented in this encounter Additional Health Concerns Assessment Noted Time PHQ-9 Depression Total Score: 1 12/27/19 24 1:53 PM EST documented as of this encounter Care Teams Dock Superintendent Relationship Specialty Start Date End Date Brittany Saldana MD [address] [place] [address] PCP - General Family Medicine 05/08/20 Darrin Hernandez FNP [address] [place] [address] Nurse Practitioner Family Medicine 10/19/23 documented as of this encounter
--- OUTSIDE RECORDS SUMMARY | 2025-11-01 13:40 | XMS_ITS | Data Portability ---
Author Organization [place] [facility], Allergy Address [address] [address] Care Team Providers Care Dock Superintendent Name Role Phone AGUEDA ROUSSEAU Referring Provider [...] 6-12 months, sooner with sudden hearing changes. Ona-Hallpike was negative for vertigo and rotary nystagmus. [...] recorded. Referral vestibular therapy [facility] 2024 0[facility] [place] [address] [place] [address], [place], [address], 5 10:49:53 Procedures None recorded. 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 Neurofibr omatosis, unspecifi ed; Note: Date Diagnosed : 9 3:24 PM (Q85.00) Not Available [facility] 4 03:19:10 Impacted cerumen of bilateral ears 59305388144 04947 Active 2018 Impacted cerumen, bilateral ; Note: Date Diagnosed : 9 3:23 PM (H61.23) Not Available [facility] 4 03:19:10 Sensorine ural hearing loss of bilateral ears 306172571 Active 2018 Sensorine ural hearing loss, bilateral ; Note: Date Diagnosed : 9 10:13 AM (H90.3) Not Available [facility] 4 03:19:11 Follow-up visit Active 2019 Encounter for follow-up examinati on after completed treatment for condition s other than malignant neoplasm; Note: Date Diagnosed : 12/22/2019 11:28 AM (Z09) Not Available [facility] 4 03:19:10 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 Procedures Surgical History Date Name Laterality Status Provider Name and Address Organization Details Recorded Time 06/06/2025 Comp Audio with Tymps - 51648 & 28898 completed ROD RICH [address],[place] [address], [place], [address], [facility] [place] 06/06/2025 09:54:56 Imaging Results None recorded. Procedure Notes None recorded. Medical Equipment None Reported. Allergies Allergen ID Allergen Name Allergen Category Reaction Reaction Severity Criticality Documentation Date Start Date Code Code System Note Provider Name and Address Organization Details Recorded Time 215395 penicilli n V potassium medicatio n other Not available Not available 03/28/2024 5 RxNorm React ion: unkno wn, unspe cifie d;; Not Available [facility] 4 01:25:46 Medications Name Sig Start Date Stop Date Status Note LastModified by Organization Details LastModified Time metformin 500 mg tablet 2019 active Medicati on ID: 965066 D uration Value: 90 Brand Name: metformi [...] 24 hr 2018 active Medicati on ID: 038900 D uration Value: 90 Brand Name: felodipi ne Send Method: E-Prescr ibed Sub s Allowed: subs OK Speci al Instruct ion: TK 1 T PO QD Medic ationGen ericName : felodipi ne Not Available Not Available Not Available omeprazol e 40 mg capsule,d elayed release 06/06 completed Medicati on ID: 389520 D uration Value: 90 Brand Name: omeprazo [...] mg capsule 2018 active Medicati on ID: 519129 D uration Value: 90 Brand Name: tamsulos [...] mg tablet 06/06 completed Medicati on ID: 682158 D uration Value: 30 Brand Name: dextroam [...] mg tablet 2018 active Medicati on ID: 086146 D uration Value: 90 Brand Name: lisinopr il Send Method: E-Prescr ibed Sub s Allowed: subs OK Melaniei al Instruct ion: TK 1 T PO QD [facility] : lisinopr il Not Available [...] aerosol inhaler 2018 active Medicati on ID: [id number] D uration Value: 50 Brand Name: ProAir [...] unit) capsule 06/06 completed Medicati on ID: 127964 D uration Value: 90 Brand Name: cholecal [...] Updated DateTime 06/06/2025 160.02 cm 24.8 kg/m2 49184.93 g Stephanie Velázquez [place] - [facility] 06/06/2025 10:05:26 Social History None recorded. Functional Status None recorded. Mental Status None recorded. Family History Nothing Reported. Medical History Condition Response Heart Problems Arthritis Y Anxiety Y Hypertension Y Asthma Y Past Encounters Encounter ID Performer Location Encounter Start Date Encounter Closed Date Diagnosis/Indication Diagnosis SNOMED-CT Code Diagnosis ICD10 Code Diagnosis IMO Codes Diagnosis Note [id number] MAXIMO ROBINS PA-C [facility] [address] [address] 06/06/2025 09:23:34 06/06/2025 12:24:03 Sensorineural hearing loss of bilateral ears 349897702 H90.3 Audiologic al evaluation results: Right ear: Normal sloping to severe sensorineu ral hearing loss with very good word recognitio n. Left ear: Normal through 2 kHz sloping to severe sensorineu ral hearing loss with excellent word recognitio n. Tympanomet ry: Right Ear:Type A Left Ear:Type A Bilateral tinnitus 57062 44353 102 H93.13 016036 Vertigo 870335493 R42 10055 Health Concerns Section Related Observation LastModified by Organization Detai ls LastModified Time None Recorded Concern Status LastModified by Organization Details LastModified Time None Recorded Advance Directives Directive None Recorded Payers Insurance Date Sequence Insurance Name Policy Number Policy Velasco Covered Member ID Velasco Member ID Guarantor Name 06/06/2025 1 [facility] Dane Calles [id number] Dane Calles 08/06/2025 1 [facility] - DOS ON OR AFTER 2023 - MEDICARE ADVANTAGE [place] (MEDICARE REPLACEMENT/AD VANTAGE - PPO) Dane Calles [id number] Dane Calles 08/06/2025 2 [place] [facility] Dane Calles [id number] Dane Calles Notes Date Note Type Note [...] excision with Dr. Vasquez. MAXIMO ROBINS PA-C [address] [place] [address], [place], [address], [facility] - [facility] 06/06/2025 12:11:20
--- OUTSIDE RECORDS SUMMARY | 2025-11-01 13:40 | XMS_ITS | Encounter Summary ---
Author Organization [employer] Address [address] [place] [address] Care Team Providers Care Senior Marketing Coordinator Name Role Phone Brittany Saldana MD Primary Care Provider + Darrin Hernandez Unavailable Unavailable Reason for Visit * Reason Comments Med Refill Encounter Details Date Type Department Care Team (Late st Contact Info) Description 03/15/2023 Refill [facility] MEDICINE [address] [place] [address] Brittany Saldana MD [address] [place] [address] Primary hypertension Social History Tobacco Use Types [...] EST Office Visit [facility] MEDICINE [address] [place] [address] Brittany Saldana MD [address] [place] [address] documented as of this encounter Visit Diagnoses Diagnosis Primary hypertension Unspecified essential hypertension documented in this encounter Additional Health Concerns Assessment Noted Time PHQ-9 Depression Total Score: 10 023 10:47 AM EDT documented as of this encounter Care Teams Senior Marketing Coordinator Relationship Specialty Start Date End Date Brittany Saldana MD [address] [place] [address] PCP - General Family Medicine 05/08/20 Darrin Hernandez FNP [address] [place] [address] Nurse Practitioner Family Medicine 10/19/23 documented as of this encounter
--- OUTSIDE RECORDS SUMMARY | 2025-11-01 13:40 | XMS_ITS | Encounter Summary ---
Author Organization [employer] Address [address] [place] [address] Care Team Providers Care Film Tests Checker Name Role Phone Brittany Saldana MD Primary Care Provider + Darrin Hernandez Unavailable Unavailable Reason for Visit * Reason Onset Date Comments Med Refill 06/15/2024 Encounter Details Date Type Department Care Team (Late st Contact Info) Description 06/15/2024 Refill [facility] MEDICINE [address] [place] [address] Brittany Saldana MD [address] [place] [address] Acute insomnia Social History Tobacco Use Types [...] the past 12 months, has t he [employer], gas, oil or water company threatened to [...] Description 11/02/2025 11:15 AM EST Office Visit [facility] MEDICINE [address] [place] [address] Brittany Saldana MD [address] [place] [address] documented as of this encounter Goals Goal [...] documented as of this encounter Care Teams Film Tests Checker Relationship Specialty Start Date End Date Brittany Saldana MD [address] [place] [address] PCP - General Family Medicine 05/08/20 Darrin Hernandez FNP [address] [place] [address] Nurse Practitioner Family Medicine 10/19/23 documented as of this encounter
--- OUTSIDE RECORDS SUMMARY | 2025-11-01 13:40 | XMS_ITS | Encounter Summary ---
Author Organization [employer] Address [address] [place] [address] [place] [address] Care Team Providers Care Prep Person Name Role Phone Brittany Saldana MD Primary Care Provider + Darrin Hernandez Unavailable Unavailable Reason for Visit * Reason Comments Med Refill Encounter Details Date Type Department Care Team (Late st Contact Info) Description 07/25/2024 Refill [facility] MEDICINE [address] [place] [address] Brandon Caballero MD 230 [place] [address] Type 2 diabetes mellitus without complication, without long-term current use of insulin ([facility]) Social History Tobacco Use Types [...] Office Visit [facility] MEDICINE [address] [place] [address] Brittany Saldana MD [address] [place] [address] documented as of this encounter Goals Goal [...] documented as of this encounter Care Teams Prep Person Relationship Specialty Start Date End Date Brittany Saldana MD [address] [place] [address] PCP - General Family Medicine 05/08/20 Darrin Hernandez FNP [address] [place] [address] Nurse Practitioner Family Medicine 10/19/23 documented as of this encounter
--- OUTSIDE RECORDS SUMMARY | 2025-11-01 13:40 | XMS_ITS | Encounter Summary ---
Author Organization [employer] Address [address] [place] [address] Care Team Providers Care Editing Clerk Name Role Phone Brittany Saldana MD Primary Care Provider + Darrin Hernandez Unavailable Unavailable Reason for Visit * Reason Comments Med Refill Encounter Details Date Type Department Care Team (Late st Contact Info) Description 06/03/2023 Refill [facility] MEDICINE [address] [place] [address] Darrin Hernandez FNP Depression, unspecified depression type [...] Description 11/02/2025 11:15 AM EST Office Visit [facility] MEDICINE [address] [place] [address] Brittany Saldana MD 230 [place] [address] documented as of this encounter Visit Diagnoses Diagnosis Depression, unspecified depression type documented in this encounter Additional Health Concerns Assessment Noted Time PHQ-9 Depression Total Score: 11 023 10:47 AM EDT documented as of this encounter Care Teams Editing Clerk Relationship Specialty Start Date End Date Brittany Saldana MD [address] [place] [address] PCP - General Family Medicine 05/08/20 Darrin Hernandez FNP [address] [place] [address] Nurse Practitioner Family Medicine 10/19/23 documented as of this encounter
--- OUTSIDE RECORDS SUMMARY | 2025-11-01 13:40 | XMS_ITS | Encounter Summary ---
Author Organization [employer] Address [address] [place] [address] 7 [place] [address] Care Team Providers Care Chain Puller Name Role Phone Brittany Saldana MD Primary Care Provider + Darrin Hernandez Unavailable Unavailable Encounter Details Date Type Department Care Team (Late st Contact Info) Description 08/07/2025 Orders Only [facility] [address] [place] [address] ProviderDavid MD Social History Tobacco Use Types [...] Description 11/02/2025 11:15 AM EST Office Visit [facility] MEDICINE [address] [place] [address] Brittany Saldana MD [address] [place] [address] documented as of this encounter Goals Goal [...] documented as of this encounter Care Teams Chain Puller Relationship Specialty Start Date End Date Brittany Saldana MD [address] [place] [address] PCP - General Family Medicine 05/08/20 Darrin Hernandez FNP [address] [place] [address] Nurse Practitioner Family Medicine 10/19/23 documented as of this encounter
--- OUTSIDE RECORDS SUMMARY | 2025-11-01 13:40 | XMS_ITS | Encounter Summary ---
Author Organization [employer] Address [address] [place] [address] Care Team Providers Care Instrument Assembly Supervisor Name Role Phone Brittany Saldana MD Primary Care Provider + Darrin Hernandez Unavailable Unavailable Reason for Visit * Reason Onset Date Comments Med Refill 06/11/2024 Encounter Details Date Type Department Care Team (Late st Contact Info) Description 06/11/2024 Refill [facility] MEDICINE [address] [place] [address] Brittany Saldana MD [address] [place] [address] Social History Tobacco Use Types Packs/Day Years [...] Description 11/02/2025 11:15 AM EST Office Visit [facility] MEDICINE [address] [place] [address] Brittany Saldana MD [address] [place] [address] documented as of this encounter Goals Goal [...] documented as of this encounter Care Teams Instrument Assembly Supervisor Relationship Specialty Start Date End Date Brittany Saldana MD [address] [place] [address] PCP - General Family Medicine 05/08/20 Darrin Hernandez FNP [address] [place] [address] Nurse Practitioner Family Medicine 10/19/23 documented as of this encounter
--- OUTSIDE RECORDS SUMMARY | 2025-11-01 13:40 | XMS_ITS | Encounter Summary ---
Author Organization [employer] Address [address] [place] [address] Care Team Providers Care Flight Engineer Performance Qualified Name Role Phone Brittany Saldana MD Primary Care Provider + Darrin Hernandez Unavailable Unavailable Reason for Visit * Reason Onset Date Comments Durable Medical Equipment 02/15/2023 Encounter Details Date Type Department Care Team (Late st Contact Info) Description 02/15/2023 Telephone [facility] MEDICINE [address] [place] [address] Brittany Saldana MD [address] [place] [address] Durable Medical Equipment Social History Tobacco Use [...] 11:15 AM EST Office Visit [facility] MEDICINE [address] [place] [address] Brittany Saldana MD [address] [place] [address] documented as of this encounter Visit Diagnoses Not on filedocumented in this encounter Additional Health Concerns Assessment Noted Time PHQ-9 Depression Total Score: 10 023 10:47 AM EDT documented as of this encounter Care Teams Flight Engineer Performance Qualified Relationship Specialty Start Date End Date Brittany Saldana MD [address] [place] [address] PCP - General Family Medicine 05/08/20 Darrin Hernandez FNP [address] [place] [address] Nurse Practitioner Family Medicine 10/19/23 documented as of this encounter
--- OUTSIDE RECORDS SUMMARY | 2025-11-01 13:40 | XMS_ITS | Encounter Summary ---
Author Organization [employer] Address [address] [place] [address] Care Team Providers Care Quarantine Inspector Name Role Phone Brittany Saldana MD Primary Care Provider + Darrin Hernandez Unavailable Unavailable Reason for Visit * Reason Onset Date Comments Med Refill 06/19/2024 Encounter Details Date Type Department Care Team (Late st Contact Info) Description 06/19/2024 Refill [facility] [address] [place] [address] Brittany Saldana MD [address] [place] [address] Alcoholism (CMS/HCC); Essential (primary) hypertension Social History [...] Description 11/02/2025 11:15 AM EST Office Visit [facility] [address] [place], [place] [phone] Brittany Saldana MD [address] [place] [address] documented as of this encounter Goals Goal [...] documented as of this encounter Care Teams Quarantine Inspector Relationship Specialty Start Date End Date Brittany Saldana MD [address] [place] [address] PCP - General Family Medicine 05/08/20 Darrin Hernandez FNP [address] [place] [address] Nurse Practitioner Family Medicine 10/19/23 documented as of this encounter
--- OUTSIDE RECORDS SUMMARY | 2025-11-01 13:40 | XMS_ITS | Encounter Summary ---
Author Organization [employer] Address [address] [place] [address] [place] [address] Care Team Providers Care Hand Upper And Bottom Lacer Name Role Phone Brittany Saldana MD Primary Care Provider + Darrin Hernandez Unavailable Unavailable Reason for Visit * Reason Comments Med Refill Encounter Details Date Type Department Care Team (Late st Contact Info) Description 10/18/2025 Refill [facility] [address] [place] [address] Brittany Saldana MD [address] [place] [address] Social History Tobacco Use Types Packs/Day Years [...] Description 11/02/2025 11:15 AM EST Office Visit [facility] [address] [place] [address] Brittany Saldana MD [address] [place] [address] documented as of this encounter Goals Goal [...] as of this encounter Care Teams Hand Upper And Bottom Lacer Relationship Specialty Start Date End Date Brittany Saldana MD [address] [place] [address] PCP - General Family Medicine 05/08/20 Darrin Hernandez FNP [address] [place] [address] Nurse Practitioner Family Medicine 10/19/23 documented as of this encounter
--- OUTSIDE RECORDS SUMMARY | 2025-11-01 13:40 | XMS_ITS | Encounter Summary ---
Author Organization [employer] Address [address] [place] [address] Care Team Providers Care Exam Proctor Name Role Phone Brittany Saldana MD Primary Care Provider + Darrin Hernandez Unavailable Unavailable Reason for Visit * Reason Onset Date Comments Durable Medical Equipment 02/17/2023 Encounter Details Date Type Department Care Team (Late st Contact Info) Description 02/17/2023 Telephone [facility] [address] [place] [address] Brittany Saldana MD [address] [place] [address] Durable Medical Equipment Social History Tobacco Use [...] . Any questions please contact pt at [phone]. documented in this encounter Plan of Treatment Upcoming Encounters Date Type Department Care Team (Late st Contact Info) Description 11/02/2025 11:15 AM EST Office Visit [facility] [address] [place] [address] Brittany Saldana MD [address] [place] [address] documented as of this encounter Visit Diagnoses Not on filedocumented in this encounter Additional Health Concerns Assessment Noted Time PHQ-9 Depression Total Score: 10 023 10:47 AM EDT documented as of this encounter Care Teams Exam Proctor Relationship Specialty Start Date End Date Brittany Saldana MD [address] [place] [address] PCP - General Family Medicine 05/08/20 Darrin Hernandez FNP [address] [place] [address] Nurse Practitioner Family Medicine 10/19/23 documented as of this encounter
--- OUTSIDE RECORDS SUMMARY | 2025-11-01 13:40 | XMS_ITS | Encounter Summary ---
Author Organization [employer] Address [address] [place] [address] [place] [address] Care Team Providers Care Cloth Cutter Name Role Phone Brittany Saldana MD Primary Care Provider + Darrin Hernandez Unavailable Unavailable Reason for Visit * Reason Onset Date Comments Med Refill 05/20/2024 Encounter Details Date Type Department Care Team (Late st Contact Info) Description 05/20/2024 Refill [facility] [address] [place] [address] Darrin Hernandez FNP Social History Tobacco Use [...] is your housing situation today? I have ebst howard 02/29/[address] you [...] EST Office Visit [facility] [address] [place] [phone] Brittany Saldana MD [address] [place] [address] documented as of this encounter Goals Goal [...] as of this encounter Care Teams Cloth Cutter Relationship Specialty Start Date End Date Brittany Saldana MD [address] [place] [address] PCP - General Family Medicine 05/08/20 Darrin Hernandez FNP [address] [place] [address] Nurse Practitioner Family Medicine 10/19/23 documented as of this encounter
--- OUTSIDE RECORDS SUMMARY | 2025-11-01 13:41 | XMS_ITS | Encounter Summary ---
Author Organization [employer] Address [address] [place] [address] Care Team Providers Care Hot Sealing Machine Operator Name Role Phone Brittany Saldana MD Primary Care Provider + Darrin Hernandez Unavailable Unavailable Reason for Visit * Reason Onset Date Comments Referral 09/24/2023 Encounter Details Date Type Department Care Team (Late st Contact Info) Description 09/24/2023 Telephone [facility] [address] [place] [address] Brittany Saldana MD [address] [place] [address] Referral Social History Tobacco Use Types Packs/Day [...] 9:02 AM EST Tc from sri with [facility] requesting a new order for Occupational therapy for weakness in hands. States they received the referral for Occupational therapy but dx says hip pain. Please fax to [phone] Any questions, please contact sri at [phone] documented in this encounter Plan of Treatment Upcoming Encounters Date Type Department Care Team (Late st Contact Info) Description 11/02/2025 11:15 AM EST Office Visit [facility] [address] [place] [address] Brittany Saldana MD [address] [place] [address] documented as of this encounter Visit Diagnoses Not on filedocumented in this encounter Additional Health Concerns Assessment Noted Time PHQ-9 Depression Total Score: 4 09/06/20 23 11:30 AM EDT documented as of this encounter Care Teams Hot Sealing Machine Operator Relationship Specialty Start Date End Date Brittany Saldana MD [address] [place] [address] PCP - General Family Medicine 05/08/20 Darrin Hernandez FNP [address] [place] [address] Nurse Practitioner Family Medicine 10/19/23 documented as of this encounter
--- OUTSIDE RECORDS SUMMARY | 2025-11-01 13:41 | XMS_ITS | Clinical Summary ---
Author Organization [employer] Address [address] [place] [address] 7 [place] [address] Care Team Providers Care Manufacturing Accountant Name Role Phone Agueda Rousseau MD Primary [...] complication, without long-term current use of insulin ([facility]) Use 1 lancet to monitor blood glucose twice daily 100 each 11 023 Active meclizine (Antivert) 25 MG tabletIndication s:Vertigo TAKE 1 TABLET BY MOUTH THREE TIMES DAILY IN THE MORNING, AT NOON, AND AT BEDTIME NEEDED FOR DIZZINESS 90 tablet 024 Active glucose blood (OneTouch Ultra) test stripIndications :Type 2 diabetes mellitus without complication, without long-term current use of insulin ([facility]) TEST BLOOD SUGAR TWICE DAILY 100 strip [...] 25 mg in the evening. Rx'd by customer counter associate . Active felodipine ER (Plendil) 10 MG [...] provider -He wants to be referred to [facility], will reach out to counselor [...] AM EDT): - obtain holter monitor from [facility] ordered by weight management program - will [...] and fu with . Order TSH/testosterone levels, school psychologist assistant input appreciated. Iliopsoas bursitis of left [...] IZs -RSV pending not available today in [facility] pharmacy Advise to have it at [...] as treatment engagement. PLAN: Follow up with [facility]: Recommended for follow-up: during AUD appts. [...] he he was not contacted yet, per aircraft electrical systems specialist, [employer] contact him on 05/11/23 at 9:47 am, but he didn't responded, vm was left. I provide him with [employer] information for him to follow up, he agreed. Provided education around integrated medicine and the options of follow up BE's as needed. Provided contact information should questions or concerns arise. Plan: Narendra will engage in effective coping mechanisms provided at least 1 per day for 6 months. He will be Contacting [employer] for him to engage in Ind. Therapy [...] as treatment engagement. PLAN: Follow up with [facility]: Recommended for follow-up: during AUD appts. [...] management. For any issues or concerns contact [facility]. Continue with therapist as usual. I have wished him well. He agrees with the plan. 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 Continue Lisinopril 7.5 [...] exercise, life style modifications, diet, referral to database marketing specialist. Discussed re lower calorie intake, increase dietary fiber Pt insisted on wt reduction program, [facility] program given today Encounters * This document contains information received from the source organization and may not represent a complete record from that organization. Date Type Department Care Team Description 10/30/2025 1:00 PM EST Office Visit [address] [address] Brandon Caballero MD Alcohol use disorder, severe, in sustained remission (CMS/HCC) (HCC) (Primary Dx) 10/30/2025 Patient Outreach [address] [address] Ted Olvera Recovery Supports 10/26/2025 Travel 10/24/2025 10:00 AM EST Office Visit [address] [address] Migue Stephens MD Alcohol use disorder (Primary Dx) 10/24/2025 Patient Outreach [address] [address] Agueda Rousseau MD Pre-visit Planning (SDOH screening negative and tobacco screening negative) 10/24/2025 Travel 10/23/2025 Patient Outreach [address] [phone] Rolando Amos Recovery Supports 10/23/[address] [address] Agueda Rousseau MD Attention deficit hyperactivity disorder, predominantly inattentive type 10/19/[address] [phone] Agueda Rousseau MD 10/18/2025 Refill [facility] [address] [place] [address] Agueda Rousseau MD 10/15/2025 Refill [facility] [address] [place] [address] Agueda Rousseau MD Type 2 diabetes mellitus without complication, without long-term current use of insulin (HCC) 10/09/2025 Patient Outreach [facility] [address] [place] [address] Ted Olvera Recovery Supports 09/27/2025 Patient Outreach [facility] [address] [place] [address] Corbin Aguilar Recovery Supports 09/26/2025 10:00 AM EST Office Visit [facility] [address] [place] [address] Migue Stephens MD Alcohol use disorder (Primary Dx) 09/26/2025 Travel 09/25/2025 Patient Outreach [facility] [address] [place] [address] Ted Olvera Recovery Supports 09/21/2025 Orders Only GENERIC EXTERNAL DATA DEPARTMENT Provider, Generic External Data 09/19/2025 10:00 AM EST Office Visit [facility] [address] [place] [address] Migue Stephens MD Alcohol use disorder (Primary Dx) 09/19/2025 Refill [facility] [address] [place] [address] Agueda Rousseau MD 09/19/2025 Travel 09/18/2025 Patient Outreach [facility] [address] [place] [address] Ted Olvera Recovery Supports 09/14/2025 Patient Outreach [facility] [address] [place] [address] Rolando Amos Recovery Supports 09/13/2025 1:00 PM EDT Office Visit [facility] [address] [place] [phone] Renetta Mitchell, OD History of type 2 diabetes mellitus (Primary Dx); Retinal tear of right eye; Vitreoretinal tuft of left eye; Epiretinal membrane, right eye; History of neurofibromatosis (CMS/HCC) (HCC); Pseudophakia, both eyes; Presbyopia 09/13/2025 Patient Outreach [address] [address] Corbin Aguilar Recovery Supports 09/13/[address] [address] Agueda Rousseau MD Essential (primary) hypertension 09/13/2025 Travel 09/12/2025 11:00 AM EDT Office Visit [address] [address] Agueda Rousseau MD Essential (primary) hypertension (Primary Dx); PTSD (post-traumatic stress disorder) 09/12/2025 Travel 09/11/[address] [address] Agueda Rousseau MD CHART PREP 09/11/2025 Patient Outreach [address] [address] Rolando Amos 09/11/2025 Travel 09/05/2025 10:00 AM EDT Office Visit [address] [address] Migue Stephens MD Alcohol use disorder (Primary Dx) 09/05/2025 Travel 08/30/2025 Patient Outreach [address] [address] Ted Olvera Recovery Supports 08/29/2025 10:00 AM EDT Office Visit [address] [address] Migue Stephens MD Alcohol use disorder (Primary Dx) 08/29/2025 Travel 08/28/2025 Patient Outreach [address] [address] Ted Olvera Recovery Supports 08/25/2025 Travel 08/24/2025 Orders Only GENERIC EXTERNAL DATA DEPARTMENT Provider, Generic External Data 08/23/2025 Patient Outreach [address] [address] Corbin Aguilar Recovery Supports 08/22/2025 11:15 AM EDT Office Visit [address] [address] Agueda Rousseau MD Attention deficit hyperactivity disorder, predominantly inattentive type (Primary Dx); Essential (primary) hypertension; PTSD (post-traumatic stress disorder); Obstructive sleep apnea syndrome; Encounter for vaccination; Encounter for immunization 08/22/2025 Travel 08/21/2025 Telephone [facility] [address] [place] [address] Agueda Rousseau MD chart prep 08/16/2025 Patient Outreach [address] [address] Corbin Aguilar Recovery Supports 08/15/2025 10:00 AM EDT Office Visit [address] [address] Migue Stepehns MD Alcohol use disorder (Primary Dx) 08/15/2025 Travel 08/14/2025 Patient Outreach [address] [address] Ted Olvera Recovery Supports 08/08/2025 10:00 AM EDT Office Visit [address] [address] Migue Stephens MD Alcohol use disorder (Primary Dx); Essential (primary) hypertension 08/08/2025 Travel 08/07/2025 1:15 PM EDT Office Visit [address] [address] Brandon Caballero MD Alcohol use disorder, severe, in sustained remission (CMS/HCC) (Primary Dx) 08/07/2025 Patient Outreach [address] [address] Corbin Aguilar Recovery Supports 08/07/2025 Travel 08/07/2025 Orders Only [facility] [address] [place] [address] Provider, MD David from Last 3 Months Immunizations Immunization Administration [...] Description 11/02/2025 11:15 AM EST Office Visit [facility] [address] [place] [address] Agueda Rousseau MD [address] [place] [address] Health Maintenance Due Date Last Done Comments [...] METABOLIC PANEL Routine 08/24/2025 9:58 AM EDT ALBUMIN, RANDOM URINE W/CREATININE Routine [...] Vitamin D 25-OH Total 44.2 >30 ng/mL [facility] Comment: Health Based Reference Values*< 20 ng/mL Rticblujm74-67 ng/mL Insufficient> 30 ng/mL Sufficient*Mervat YU. N [...] ORDERAB LES Final Result Performing Organization Address [facility] Co de Phone Number [facility] [address] [place] [phone] * (ABNORMAL) Vitamin B12 (Cobalamin) and Folate Panel, Serum (09/21/2025 10:10 AM EST) Pathologist [facility] Vitamin B12 1,101(H) 200 - 900 pg/mL [facility] Comment:NORMAL 200-900 PG/M L INDETERMINATE 160-199 PG/ML DEFICIENT < 160 PG/ML Folate 13.5 > or = 4.0 ng/mL [facility] Comment:Reference Values:> o r = 4.0 ng/mL< 4.0 ng/mL suggests folate deficiency Methotrexate, aminopterin and folinic acid(leucovorin) are chemotherapeutic agents whose molecularstructures are similar to folate; therefore, the Architectfolate assay cannot be used for patients using these drugs. 09/21/2025 10:1 0 AM EST 09/21/2025 10:13 AM EST Generic External Data Provider LAB BLOOD ORDERAB LES Final Result Performing Organization Address [facility] Co de Phone Number [facility] [address] [place] [phone] * (ABNORMAL) CBC auto differential (09/21/2025 10:10 AM EST) [facility] White Blood Count 9.0 4.8 - 10.8 X10*3/uL [facility] Red Blood Count 4.06(L) 4.60 - 5.80 X10*6/uL [facility] Hemoglobin 12.5(L) 14.0 - 18.0 g/dl [facility] Hematocrit 38.0(L) 42.0 - 52.0 % [facility] Mean Corpuscular Volume 93.6 80.0 - 98.0 fL [facility] Mean Corpuscular Hemoglobin 30.8 27.0 - 33.0 pg [facility] Mean Corpuscular HGB Conc 32.9 31.0 - 36.0 g/dl [facility] Red Cell Distribution Width 13.0 11.0 - 16.0 % [facility] Platelet Count 220 160 - 400 X10*3/uL [facility] Mean Platelet Volume 9.3(L) 9.4 - 12.4 fL [facility] Neutrophils Percent Auto 72.9 45 - 73 % [facility] Imm Gran Pct Auto 0.4 0.0 - 0.4 % [facility] Lymphocytes Percent Auto 16.9(L) 20 - 40 % [facility] Monocytes Percent Auto 7.4 2 - 11 % [facility] Eosinophils Percent Auto 1.7 0 - 4 % [facility] Basophils Percent Auto 0.7 0 - 2 % [facility] NRBC Pct Auto 0.0 0.0 - 0.2 /100WBC [facility] Neutrophils Absolute Auto 6.5 2.0 - 8.3 x10*3/uL [facility] Imm Gran Abs Auto 0.04(H) 0.00 - 0.03 X10*3/uL [facility] Lymphocytes Absolute Auto 1.5 1.2 - 4.9 X10*3/uL [facility] Monocytes Absolute Auto 0.7 0.1 - 1.2 X10*3/uL [facility] Eosinophils Absolute Auto 0.2 0.0 - 0.4 X10*3/uL [facility] Basophils Absolute Auto 0.1 0.0 - 0.2 X10*3/uL [facility] NRBC Abs Auto 0.000 0.0 - 0.012 X10*3/uL [facility] 09/21/2025 10:1 0 AM EST 09/21/2025 10:13 AM EST us Generic External Data Provider LAB BLOOD ORDERAB LES Final Result Performing Organization Address City/[facility]/ZIP Co de Phone Number [facility] [address] [place] [phone] * (ABNORMAL) Iron And Total Iron Binding Capacity (09/21/2025 10:10 AM EST) Iron 108 45 - 160 mcg/dL [facility] Total Iron Binding Capacity 216(L) 228 - 428 mcg/dL [facility] Percent Iron Saturation 50 15 - 50 % [facility] Unsaturated Iron Binding 108 ug/dL [facility] 09/21/2025 10:1 0 AM EST 09/21/2025 10:13 AM EST us Generic External Data Provider LAB BLOOD ORDERAB LES Final Result Performing Organization Address [facility] Co de Phone Number [facility] [address] [place] [phone] * Zinc (09/21/2025 10:10 AM EST) Zinc 64 60 - 130 mcg/dL [facility] Comment:This test was develo ped and its analytical performancecharacteristics have been determined by [employer] [place], [place]. It hasnot been cleared or approved by the U.S. Food and DrugAdministration. This assay has been validated pursuantto the CLIA regulations and is used for clinicalpurposes.THIS TEST WAS PERFORMED AT:[employer] [place] [address]PQZYCFZBILLIE AWAD MD,PHD 09/21/2025 10:1 0 AM EST 09/21/2025 10:13 AM EST us Generic External Data Provider LAB BLOOD ORDERAB LES Final Result Performing Organization Address City/[facility]/ZIP Co de Phone Number [facility] [address] [place] [phone] * Vitamin A (09/21/2025 10:10 AM EST) Pathologist [facility] Vitamin A (Retinol) 56 38 - 98 mcg/dL [facility] Comment:Vitamin supplementat ion within 24 hours prior toblood draw may affect the accuracy of the results.This test was developed and its analytical performancecharacteristics have been determined by [employer] [place], [place]. It hasnot been cleared or approved by the U.S. Food and DrugAdministration. This assay has been validated pursuantto the CLIA regulations and is used for clinicalpurposes.THIS TEST WAS PERFORMED AT:[employer] [place] [address]BJDPSCWBILLIE AWAD MD,PHD 09/21/2025 10:1 0 AM EST 09/21/2025 10:13 AM EST Generic External Data Provider LAB BLOOD ORDERAB LES Final Result Performing Organization Address City/[facility]/ZIP Co de Phone Number [facility] [address] [place] [phone] * C-reactive Protein (09/21/2025 10:10 AM EST) Pathologist [facility] C Reactive Protein <0.10 < or = 0.50 mg/dL [facility] 09/21/2025 10:1 0 AM EST 09/21/2025 10:13 AM EST Generic External Data Provider LAB BLOOD ORDERAB LES Final Result Performing Organization Address City/[facility]/ZIP Co de Phone Number [facility] [address] [place] [phone] * (ABNORMAL) Vitamin B1 (09/21/2025 10:10 AM EST) Pathologist [facility] Vitamin B1 180(A) 8 - 30 nmol/L [facility] Comment:Vitamin supplementat ion within 24 hours prior toblood draw may affect the accuracy of the results.This test was developed and its analytical performancecharacteristics have been determined by [employer] [place], [place]. It hasnot been cleared or approved by the U.S. Food and DrugAdministration. This assay has been validated pursuantto the CLIA regulations and is used for clinicalpurposes.THIS TEST WAS PERFORMED AT:[employer] [place] [address]HTJZAWHBILLIE AWAD MD,PHD 09/21/2025 10:1 0 AM EST 09/21/2025 10:13 AM EST Generic External Data Provider LAB BLOOD ORDERAB LES Final Result Performing Organization Address [facility]/ZIP Co de Phone Number [facility] [address] [place] [phone] * Ferritin (09/21/2025 10:10 AM EST) Ferritin 115 20 - 250 ng/mL [facility] 09/21/2025 10:1 0 AM EST 09/21/2025 10:13 AM EST Generic External Data Provider LAB BLOOD ORDERAB LES Final Result Performing Organization Address [facility] Co de Phone Number [facility] [address] [place] [phone] * (ABNORMAL) Basic Metabolic Panel (08/24/2025 9:58 AM EDT) Sodium 141 135 - 145 mmol/L [facility] Potassium 4.6 3.3 - 5.1 mmol/L [facility] Chloride 104 96 - 108 mmol/L [facility] Carbon Dioxide 30(H) 22 - 29 mmol/L [facility] Anion Gap 12 12 - 20 [facility] Urea Nitrogen (BUN) 19(H) 9 - 16 mg/dL [facility] Creatinine, Serum 1.12 0.5 - 1.4 mg/dL [facility] Estimated Glomerular Filt Rate >60 [facility] Comment:Chronic Kidney Disea se: Estimated GFR < 60 mL/min/1.60q5Wujgfm Kidney Disease: Estimated GFR < 15 mL/min/1.73m2 Glucose 93 60 - 115 mg/dL [facility] Calcium 9.7 8.4 - 10.2 mg/dL [facility] 08/24/2025 9:58 AM EDT 08/24/2025 9:58 AM EDT us Generic External Data Provider LAB BLOOD ORDERAB LES Final Result Performing Organization Address [facility] Co de Phone Number [facility] [address] [place] [phone] * Albumin, Random Urine W/Creatinine (04/10/2025 10:21 AM EDT) Creatinine, Urine 61.10 mg/dL [facility] Microalbumin Urine 14.0 mg/L [facility] Microalbum Creatinine Ratio Ur 22.9 <30 ug/mg cr [facility] Comment:Albumin/Creatinine R atio Reference Ranges: Normal: < 30 ug/mg creatinine Microalbuminuria: 30 - 300 ug/mg creatinineClinical Albuminuria: > 300 ug/mg creatinine 04/10/2025 10:2 1 AM EDT 04/10/2025 11:06 AM EDT us Agueda Rousseau MD LAB URINE ORDERABLES Fin al Result [facility] [address] [place] [phone] * Hemoglobin A1c (04/06/2025 9:03 AM EDT) Hemoglobin A1c 5.0 <6.0 % [facility] Comment:Hemoglobin A1C Refer ence Range Adults: 4.8 - 6.0 % Non diabetic: < 6.0 % Goal: < 7.0 %Additional Action Suggested: > 8.0 %Note: Hemoglobin A1c results are invalid for patients with abnormal amounts of HbF. Blood transfusions may impact the HbA1c concentration in the patient sample. Estimated Average Glucose 97 mg/dL [facility] Comment:eAG = Estimated ave rage glucose which is %A1C expressed asaverage glucose, using the formula of the E1O-WoxaspxNgnydfe Glucose study (ADAG), Diabetes Care, Vol.31,#8,Jun. 2007 04/06/2025 9:03 AM EDT 04/06/2025 11:03 AM EDT us Generic External Data Provider LAB BLOOD ORDERAB LES Final Result [facility] [address] [place] [phone] * (ABNORMAL) Lipid Panel, Standard (04/06/2025 9:03 AM EDT) Triglycerides 63 <150 mg/dL [facility] Comment:Desirable Triglyceri de: less than 150 mg/dLBorderline High Triglyceride 150-199 mg/dLHigh Triglyceride: 200-499 mg/dLVery High Triglyceride: greater than or equal to 5OO mg/dL Cholesterol 124 <200 mg/dL [facility] Comment:Desirable Cholestero l: less than 200 mg/dLBorderline High Cholesterol: 200-239 mg/dLHigh Cholesterol: greater than 239 mg/dL LDL Cholesterol Calculated 75 <100 mg/dL [facility] Comment:Desirable LDL: less than 100 mg/dLNear Optimal/Above Optimal LDL: 110- 129 mg/dLBorderline High LDL: 130-159 mg/dLHigh LDL: 160-189 mg/dLVery High LDL: greater than or equal to 190 mg/dL HDL Cholesterol 37(L) >40 mg/dL [facility] Comment:Desirable HDL: great er than 40 mg/dL Note: This HDL assay may give artificially low results in patients with liver disease. 04/06/2025 9:03 AM EDT 04/06/2025 11:23 AM EDT us Generic External Data Provider LAB BLOOD ORDERAB LES Final Result Performing Organization Address [facility]/ZIP Co de Phone Number [facility] [address] [place] [phone] * (ABNORMAL) Hm Colonoscopy (09/19/2024) Colonoscopy Normal Normal [facility] Comment:poor prep us Agueda Rousseau MD HEALTH MAINTENANCE Final Result Performing Organization Address [facility] Co de Phone Number [facility] [address] [place] [phone] * HEPATITIS C AB W/REFL TO HCV RNA, QN, PCR (12/09/2021 11:13 AM EST) HEPATITIS C ANTIBODY NON-REACT [facility] NON-REACT [facility] INDEX 0.03 <1.00 [facility] Comment: HCV antibody was non-reactive. There is no laboratory evidence of HCV infection. In most cases, no further action is required. However, if recent HCV exposure is suspected, a test for HCV RNA (test code 75310) is suggested. For additional information please refer to http://education.[employer]/faq/LIP97z6 (This link is being provided for informational/ educational purposes only.) 12/09/2021 11:1 3 AM EST us Lulu Garcia ANP HISTORICAL/NON ORDERABLE LABS Fi nal Result Performing Organization Address [facility] Co de Phone Number [facility] [address] from Last 3 Months or Most Recently Relevant to Health Maintenance Insurance [employer] (HMO D-SNP) [facility] ST[facility] Care Teams Manufacturing Accountant Relationship Specialty Start Date End Date Agueda Rousseau MD [address] [place] [address] PCP - General Family Medicine 05/08/20 Darrin Hernandez FNP [address] [place] [address] Nurse Practitioner Family Medicine 10/19/23
--- OUTSIDE RECORDS SUMMARY | 2025-11-01 13:41 | XMS_ITS | Clinical Summary ---
Author Organization [address] [facility] Address [address] [place] [address] Phone Care Team Providers Care Night Court Magistrate Name Role Phone Brittany Saldaan MD Primary Care Provider + [phone] Allergies Active Allergy Reactions Criticality Noted Date [...] 10:30 AM EDT Office Visit Pulmonology - [address] [place] [phone] Sena Mobley MD Nocturnal hypoglycemia (Primary Dx) from Last 3 Months Social History Tobacco [...] on patient's age to complete this topic Insurance [facility] MEDICARE Member Subscriber Plan / Payer (Ef fective 2023-Present) Name:Dane Calles Relation to Subscriber:Self Name:Dane Calles Payer ID:[id number] Group ID:[id number] Type:Not on file Address: [place] [address] [address] [place] [phone] Relationship Specialty Start Date End Date Brittany Saldana MD [address] [place] [phone] PCP - General Internal Medicine 07/05/25
--- OUTSIDE RECORDS SUMMARY | 2025-11-01 13:41 | XMS_ITS | Encounter Summary ---
Author Organization [employer] Address [address] [place] [id number] Care Team Providers Care Animal Caregiver Name Role Phone Brittany Saldana MD Primary Care Provider + Darrin Hernandez Unavailable Unavailable Reason for Visit * Reason Onset Date Comments Med Refill 01/09/2025 Encounter Details Date Type Department Care Team (Late st Contact Info) Description 01/09/2025 Refill [facility] [address] [place] [address] Brittany Saldana MD [address] [place] [address] Social History Tobacco Use Types Packs/Day Years [...] Description 11/02/2025 11:15 AM EST Office Visit [facility] [address] [place] [address] Brittany Saldana MD [address] [place] [address] documented as of this encounter Goals Goal [...] as of this encounter Care Teams Animal Caregiver Relationship Specialty Start Date End Date Brittany Saldana MD [address] [place] [address] PCP - General Family Medicine 05/08/20 Darrin Hernandez FNP [address] [place] [address] Nurse Practitioner Family Medicine 10/19/23 documented as of this encounter
== END 2025-11-01 11:34 | disposition home or self-care (01) ==
LOC: HO.HUSH 10:44
PROVIDERS: PCP Internal Medicine; Visit Provider Urology
DX: N40.1 Benign prostatic hyperplasia with lower urinary tract symptoms (principal); N13.8 Other obstructive and reflux uropathy; R33.9 Retention of urine, unspecified; R39.12 Poor urinary stream
CPT/HCPCS: 99214; G2211

== ENCOUNTER → 2025-11-01 10:43 | Outpatient (BNVA) | payer OTHER, SELFPAY | PROVIDERS: PCP Internal Medicine; Visit Provider Urology | DX: N40.1 Benign prostatic hyperplasia with lower urinary tract symptoms (principal); N13.8 Other obstructive and reflux uropathy; R33.8 Other retention of urine; R39.12 Poor urinary stream | CPT/HCPCS: 51798; 99212 ==